=== PATIENT | male | born 1955 | race Caucasian/White ===

== ENCOUNTER 2019-12-09 08:54 | Day surgery (SDC) | payer BC, SELFPAY ==
[2019-12-02 15:12] VITALS: BMI 34.8
--- NOTE | 2019-12-07 09:10 | HO.ANESPROP2 ---
Documented by User: More La Nena 12/07/19 09:33 HPI - Anesthesia Eval Consult details Narrative: 64yo M for EGD and Colonoscopy FOR[facility]LY [facility] Past Medical History Medical History Arthritis Ascending aorta dilation Back pain Diarrhea GERD (gastroesophageal reflux disease) Gout Hiatal hernia History of esophageal varices History of Qcchb-Zgvjubujd-Zitow (WPW) syndrome HTN (hypertension) Surgical History Surgical History H/O cardiac radiofrequency ablation History of colonoscopy History of esophagogastroduodenoscopy (EGD) Social History Social History Smoking Status: Never smoker Second Hand Smoke Exposure: No Use of substances other than those prescribed or required for medical reasons: N Advance Directives: No Advance Directives Information Provided: No Recently lost weight without trying: Yes Narrative Narrative: Per [employer] supervisor, suscessful catheter ablation of accessory pathway and EKG no longer shows a pattern of WPW, no recurrent tachyarrhythmias. 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 Obs only. Meds Allergies Allergy/AdvReac Type Severity Reaction Status Date / Time lisinopril [LISINOPRIL] Allergy Unknown TONGUE Unverified 11/25/19 16:43 SWELLING, CONFUSION , swollen tounge and face confusion Environmental Allergy Unknown Uncoded 09/01/19 00:00 lisinopril Allergy Unknown Uncoded 10/22/19 00:00 Home Medications Medication Instructions Recorded Confirmed Type allopurinol 1 tab PO DAILY 12/07/19 12/07/19 History bisacodyl 4 tab PO NEEDED 12/07/19 12/07/19 History diclofenac sodium 1 tab PO BID 12/07/19 12/07/19 History dorzolamide-timolol 1 drp BID 12/07/19 12/07/19 History gabapentin 1 cap PO DAILY 12/07/19 12/07/19 History indomethacin 1 cap PO TID PRN 12/07/19 12/07/19 History latanoprost 1 drp OPHTHALMIC (EYE) BEDTIME 12/07/19 12/07/19 History metoprolol succinate 1 tab PO DAILY 12/07/19 12/07/19 History nifedipine 1 tab PO DAILY 12/07/19 12/07/19 History omeprazole 1 cap PO DAILY 12/07/19 12/07/19 History spironolactone 1 tab PO DAILY 12/07/19 12/07/19 History Exam Exam Date and Time: December 07, 2019 0910 Height,Weight and Vital Signs: Height 5 ft 8 in Weight 103.873 kg Pertinent Lab Results Pertinent Lab Results: Echo 05/2018=[id number]%, normal LV sys function. Asc aorta@4.4cm Assessment and Plan Assessment Anesthesia Assessment: Chart Reviewed (12/07/19 HT) Documented by User: Patience Lloyd 12/09/19 09:54 PMFSH Past Medical History Medical History Arthritis Ascending aorta dilation Back pain Diarrhea GERD (gastroesophageal reflux disease) Gout Hiatal hernia History of esophageal varices History of Qwsvt-Fjovizoqz-Hddyc (WPW) syndrome HTN (hypertension) Surgical History Surgical History H/O cardiac radiofrequency ablation History of colonoscopy History of esophagogastroduodenoscopy (EGD) Social History Social History Smoking Status: Never smoker Second Hand Smoke Exposure: No Use of substances other than those prescribed or required for medical reasons: N Advance Directives: No Advance Directives Information Provided: No Recently lost weight without trying: Yes Meds Allergies Allergy/AdvReac Type Severity Reaction Status Date / Time lisinopril [LISINOPRIL] Allergy Unknown TONGUE Unverified 11/25/19 16:43 SWELLING, CONFUSION , swollen tounge and face confusion Environmental Allergy Unknown Uncoded 09/01/19 00:00 lisinopril Allergy Unknown Uncoded 10/22/19 00:00 Home Medications Medication Instructions Recorded Confirmed Type allopurinol 1 tab PO DAILY 12/07/19 12/07/19 History bisacodyl 4 tab PO NEEDED 12/07/19 12/07/19 History diclofenac sodium 1 tab PO BID 12/07/19 12/07/19 History dorzolamide-timolol 1 drp BID 12/07/19 12/07/19 History gabapentin 1 cap PO DAILY 12/07/19 12/07/19 History indomethacin 1 cap PO TID PRN 12/07/19 12/07/19 History latanoprost 1 drp OPHTHALMIC (EYE) BEDTIME 12/07/19 12/07/19 History metoprolol succinate 1 tab PO DAILY 12/07/19 12/07/19 History nifedipine 1 tab PO DAILY 12/07/19 12/07/19 History omeprazole 1 cap PO DAILY 12/07/19 12/07/19 History spironolactone 1 tab PO DAILY 12/07/19 12/07/19 History Exam Airway Mallampati Class: IV TM Dist: >3cm Neck ROM: Full Denture: Upper Loose/Missing/Broken Teeth: Yes (9,10 missing) Heart: RRR Lungs: CTA BL Assessment and Plan Final Anesthetic Review Final Preanesthetic Review: No Changes in Pt Med Stat, Meds & Allergies Reviewed, Consent Obtained/Reviewed and Med/Surg/Anes Hx Reviewed Patient Risk: Intermediate Procedure Risk: Intermediate Assessment/Block/Sedation in SS: Assess/Block/Sedation-SS Anesthetic Plan Anesthetic Plan: MAC: Disposition: Standard PACU
[2019-12-09 10:16] VITALS: BP 157/97; PULSE 82; RESP 18; TEMP 36.3; O2SAT 96
[2019-12-09] MEDS: Lactated Ringers 1,000 ML 100 ML IVCONT (10:24)
--- NOTE | 2019-12-09 11:03 | MHC.SHP ---
Surgical H&P Section B Chief Complaint: DIARRHEA,OTHER DIGESTIVE DISEASES Details of Present Illness: diarrhea for many years, hx of varices Relevant Family History (Specify if Yes): No Relevant Social History: None Present Medications: see Short Stay Collaborative assessment Medical History: Significant History (HTN, hiatal hernia, obesity, WPW) History of Previous Operations: Relevant previous surgery/procedure and date(s) (EGD, heart ablation) Allergies: Allergies Allergy/AdvReac Type Severity Reaction Status Date / Time lisinopril [LISINOPRIL] Allergy Unknown TONGUE Unverified 11/25/19 16:43 SWELLING, CONFUSION , swollen tounge and face confusion Environmental Allergy Unknown Uncoded 09/01/19 00:00 lisinopril Allergy Unknown Uncoded 10/22/19 00:00 Review of Systems Review of Systems Comment: negative except as mentioned in HP Exam Surgical H&P Exam: Normal: HEENT, Normal: Heart, Normal: Lungs, Normal: Extremities, Normal: Abdomen, Normal: Skin and Normal: Neurological Plan Diagnosis/Plan: Unchanged Patient has been examined and remains a candidate for the planned procedure
--- NOTE | 2019-12-09 11:52 | PC.NURSE ---
CONTACT PRECAUTIONS INITIATED PER POTENTIAL C DIFFICILE INFECTION. MAYA
--- NOTE | 2019-12-09 11:54 | PM.OP ---
Brief Operative Note Date of procedure: 12/09/19 Pre-op diagnosis: diarrhea Post-op diagnosis: same Procedure: Date of procedure: 12/09/19 Operative Information Procedure Description: EGD, Colonoscopy FLEXIBLE TRANSORAL UPPER GASTROINTESTINAL ENDOSCOPY AND COLONOSCOPY PROCEDURE NOTE UPPER ENDOSCOPY Consent: Indications for the procedure and potential complications of bleeding, perforation, reaction to medications and missed diagnosis were discussed with the patient and informed consent was obtained. Instrument: Olympus GIF H 190 J mid size upper endoscope Monitoring: Vital signs and clinical assessment, continuous EKG monitoring, Pulse oximetry, Carbon Dioxide monitoring and blood pressure monitoring were done throughout the procedure. Procedure: The patient was placed in the left lateral decubitis position and pre-procedure medications were administered and a bite block was placed. The endoscope was inserted into the mouth and advanced under direct vision to the third part of duodenum. A careful inspection was made as the upper endoscope was withdrawn including a retroflexed examination of the proximal stomach; Findings and interventions are described below. Findings: Larynx:normal Esophagus: GE junction at 42 cm, diaphragm hiatus at 44 cm consistent with 2 cm sliding hiatal hernia. There appeared to be salmon pink tissue consistent with Barretts esophagus, C1M2 by [place] criteria. Bx taken. Scarring noted prob from prior esophageal banding but no varices seen. Stomach: Patchy gastric erythema. Biopsies were obtained. Grade 2 flap valve on retroflexed examination of the cardia. Duodenum: Normal bulb and descending duodenum, bx taken Intervention: Biopsies as noted above COLONOSCOPY Instrument: Olympus variable stiffness pediatric scope 190L Colonoscopy Monitoring: Vital signs and clinical assessment, continuous EKG monitoring, Pulse oximetry, Carbon Dioxide monitoring and blood pressure monitoring were done throughout the procedure. Colon withdrawal time was 17 minutes. Procedure: The patient was placed in the left lateral decubitis position and pre-procedure medications were administered. After a digital rectal examination of the ano-rectum, the video colonoscope was inserted into the rectum and advanced through the colon to the cecum/TI. The colonoscope was slowly withdrawn in a retrograde panoramic fashion and the colon mucosa was carefully examined including a retroflexed view of the rectum. Findings and interventions are described below. Procedure Difficulty: Findings: Terminal Ileum-normal, bx taken Cecum:normal Ascending Colon: x 2 sessile polyps noted, one flat polyp 7-8 mm removed w/ biopsy forceps and another sessile polyp 10 mm removed with cold snare. Transverse Colon -normal Descending Colon:normal Sigmoid Colon: normal, few small diverticula seen Rectum: Retroflexion with small internal hemorrhoids, grade I Anorectum - normal Random colon bx taken Colon preparation: [place] Bowel Preparation Scale Right colon; 2 Transverse colon: 3 Left colon; 2 (0 = Unprepared colon segment with mucosa not seen due to solid stool that cannot be cleared. 1 = Portion of mucosa of the colon segment seen, but other areas of the colon segment not well seen due to staining, residual stool and/or opaque liquid. 2 = Minor amount of residual staining, small fragments of stool and/or opaque liquid, but mucosa of colon segment seen well. 3 = Entire mucosa of colon segment seen well with no residual staining, small fragments of stool or opaque liquid) Impression and Post Procedure Diagnosis: Endoscopy Findings: gastritis hiatal hernia barretts esophagus Colonoscopy Findings: polyps diverticulosis internal hemorrhoids Plan: Await Pathology results Repeat Colonoscopy in 3-5 years pending path or earlier if clincially indicated Repeat EGD pending path prob 1 year if barretts confirmed High fiber diet leaflet avoid straining at stool, epsom salts and sitz bath, anusol supps or cream if bx neg then pursue further w/u of diarrhea Above findings were reviewed with the patient and relevant handouts were provided if indicated. Anesthesia: MAC Surgeon: Jeannette Fuentes Condition: stable Disposition: PACU
[2019-12-09 12:00] VITALS: BP 129/81; PULSE 74; RESP 16; TEMP 36.8; O2SAT 92
[2019-12-09 12:15] VITALS: BP 132/76; PULSE 67; RESP 18; O2SAT 94
[2019-12-09 12:30] VITALS: BP 148/80; PULSE 63; RESP 20; TEMP 36.8; O2SAT 94
[2019-12-09 13:06] LABS: CDIFF Ag Negative (Negative); CDIFF Internal ctrl Dots and bkg OK (V); CDiff Toxin Negative (Negative)
--- NOTE | 2019-12-09 13:11 | HO.POSTANES ---
Post Anesthesia Evaluation Post Anesthesia Evaluation Vital Signs: Vital Signs Temp Pulse Resp BP Pulse Ox 12/09/19 12:30 98.2 F 63 20 148/80 H 94 12/09/19 12:15 67 18 132/76 94 12/09/19 12:00 98.2 F 74 16 129/81 92 12/09/19 10:16 97.4 F 82 18 157/97 H 96 Anesthesia: Monitored Mental Status: Awake Pain Control: Satisfactory Nausea/Vomiting: None Hydration: Adequate Anesthesia-Related Issues: No Anes. Related Issues
== END 2019-12-09 13:20 ==
LOC: HO.SSS 08:55
PROVIDERS: PCP Internal Medicine; Visit Provider Internal Medicine Gastroenterology
PROC: (CPT 45385; principal; 2019-12-09 10:00)
DX: R19.7 Diarrhea, unspecified (principal); K57.30 Diverticulosis of large intestine without perforation or abscess without bleeding; K64.0 First degree hemorrhoids; K63.5 Polyp of colon; K29.80 Duodenitis without bleeding; K22.70 Barrett's esophagus without dysplasia; K29.50 Unspecified chronic gastritis without bleeding; D12.2 Benign neoplasm of ascending colon; Z87.19 Personal history of other diseases of the digestive system; K21.9 Gastro-esophageal reflux disease without esophagitis; I45.6 Pre-excitation syndrome; K44.9 Diaphragmatic hernia without obstruction or gangrene; I10 Essential (primary) hypertension; Z88.0 Allergy status to penicillin; M10.9 Gout, unspecified; Z79.899 Other long term (current) drug therapy
CPT/HCPCS: 45385; 45380; 43239; 36415; 87324; 87449; 88305; 88342

== ENCOUNTER 2019-12-23 10:55 | Outpatient (RCR) | payer BC, SELFPAY ==
--- NOTE | 2019-12-23 14:06 | MHC.PT.DC ---
[facility] [place] Office [place] Office [place] [facility] [address] Beatriz Peterson [address] [phone] F: [phone] F: [phone] F: [phone] F: [phone] Physical Therapy Discharge Report Diagnosis: primary OA of R knee and trochanteric bursitis R hip Date of Surgery: NA Date of Evaluation: 08/30/19 Date of Discharge: 12/23/19 Treatments to Date: 14 Cancellations to Date: 0 No Shows to Date: 0 Discharge Status: Achieved Goals Improved Function Independent with HEP Discharge Summary: Patient returns reporting in general feeling better. He has enjoyed his time in therapy and has a good HEP to continue on his own at home in the mean time while he waits to have his TKR. He demos good ROM and strength and does not complain of any pain with ther-ex at the last tx session. He is I and ready for DC at this time Electronically signed by: Daphne Schaeffer Please sign and return to therapist. Thank you for your referral.
== END 2019-12-23 14:17 | disposition home or self-care (01) ==
LOC: HO.PTCHIC 10:55
PROVIDERS: PCP Internal Medicine; Visit Provider Orthopaedic Surgery
DX: M70.61 Trochanteric bursitis, right hip (principal); M17.11 Unilateral primary osteoarthritis, right knee
CPT/HCPCS: 97110

== ENCOUNTER 2020-02-25 10:59 | Outpatient (REF) | payer BC, SELFPAY ==
--- NOTE | 2020-02-25 11:04 | XR_ITS ---
EXAMINATION: XR SHOULDER, RIGHT CLINICAL INFORMATION: Injury or shoulder proper. COMPARISON: None TECHNIQUE: AP external rotation, Grashey, scapular Y, and axillary views of the right shoulder. FINDINGS: There is a nondisplaced inferior scapular fracture. The glenohumeral joint space is intact. There is mild loss of AC joint with inferior periarticular spurring. The soft tissues are normal. XR/XR shoulder RT min 2V IMPRESSION: Nondisplaced fracture inferior scapula. Mild degenerative changes right AC joint.
[2020-02-25 14:05] LABS: MANUAL DIFF FLAG NO
[2020-02-25 14:07] LABS: Basophils Percent Auto 0.7 % (0-2); Eosinophils Absolute Auto 0.3 X10*3/uL (0.0-0.4); Eosinophils Percent Auto 4.7 % (0-4); Hematocrit 38.6 % (42-52); Hemoglobin 13.4 g/dl (14.0-18.0); Imm Gran Abs Auto 0.02 X10*3/uL (0.00-0.03); Imm Gran Pct Auto 0.3 % (0.0-0.4); Lymphocytes Absolute Auto 1.7 X10*3/uL (1.2-4.9); Lymphocytes Percent Auto 27.8 % (20-40); Mean Corpuscular HGB Conc 34.7 g/dl (31.0-36.0); Mean Corpuscular Hemoglobin 30.9 pg (27.0-33.0); Mean Corpuscular Volume 88.9 fL (80-98); Mean Platelet Volume 10.9 fL (9.4-12.4); Monocytes Absolute Auto 0.5 X10*3/uL (0.1-1.2); Monocytes Percent Auto 8.8 % (2-11); Neutrophils Absolute Auto 3.5 X10*3/uL (2.0-8.3); Neutrophils Percent Auto 57.7 % (45-73); Platelet Count 216 X10*3/uL (160-400); Red Blood Count 4.34 X10*6/uL (4.60-5.80); Red Cell Distribution Width 12.8 % (11.0-16.0); White Blood Count 6.1 X10*3/uL (4.8-10.8)
[2020-02-25 14:33] LABS: Anion Gap 12 (12-20); Blood Urea Nitrogen 24 mg/dL (9-16); Calcium 9.9 mg/dL (8.4-10.2); Carbon Dioxide 26 mmol/L (22-29); Chloride 107 mmol/L (96-108); Estimated Glomerular Filt Rate > 60; Glucose Random 116 mg/dL (60-115); Potassium 4.3 mmol/l (3.3-5.1); Sodium 141 mmol/L (135-145)
== END 2020-02-25 11:00 | disposition home or self-care (01) ==
LOC: HO.HMGCLDS 10:59
PROVIDERS: PCP Internal Medicine; Visit Provider Internal Medicine
DX: S49.90XA Unspecified injury of shoulder and upper arm, unspecified arm, initial encounter (principal)
CPT/HCPCS: 36415; 73030; 80048; 85025

== ENCOUNTER 2020-04-21 17:34 | Outpatient (REF) | payer BC, SELFPAY ==
[2020-04-22 11:40] LABS: CDIFF Ag Positive (Negative); CDIFF Internal ctrl Dots and bkg OK (V); CDiff Toxin Negative (Negative)
[2020-04-22 14:14] LABS: CDiff Gene PCR POSITIVE (Negative)
== END 2020-04-21 17:35 | disposition home or self-care (01) ==
LOC: HO.LNP 17:34
PROVIDERS: Visit Provider Internal Medicine Gastroenterology
DX: K52.9 Noninfective gastroenteritis and colitis, unspecified (principal)
CPT/HCPCS: 87324; 87449; 87493

== ENCOUNTER 2020-04-30 12:35 | Inpatient (IN) | payer BC, SELFPAY ==
--- NOTE | ~2020-04-30 | XR_ITS ---
EXAMINATION: XR CHEST CLINICAL INFORMATION: Shortness of breath COMPARISON: None TECHNIQUE: Frontal view of the chest was obtained. FINDINGS: The cardiac silhouette is upper normal in size. The thoracic aorta may be tortuous. Hilar and mediastinal contours are otherwise unremarkable. The lungs are clear. There is no pleural effusion or pneumothorax. Bony structures are unremarkable. XR/XR chest 1V IMPRESSION: No evidence for acute disease in the chest.
--- NOTE | ~2020-04-30 | CT_ITS ---
EXAMINATION: CT ANGIOGRAM OF THE CHEST WITH AND WITHOUT CONTRAST (CT PULMONARY ANGIOGRAM FOR PE) CLINICAL INFORMATION: Reason for Exam Hypoxia. Elevated D-dimer COMPARISON: Chest radiograph earlier today TECHNIQUE: Prior to contrast administration, noncontrast localization images were obtained. Subsequently, multidetector volumetric imaging was performed from the thoracic inlet to below the diaphragms following the administration of 71 mL Omnipaque 350 intravenous contrast. No contrast reaction reported Sagittal, coronal, and MIP oblique sagittal reformatted images were obtained on the CT workstation, uploaded to PACS, and reviewed. This CT examination was performed using dose optimization techniques as appropriate, variously including the following: *Automated exposure control *Adjustment of mA and/or kV according to patient size (this includes techniques or standardized protocols for targeted exams where dose is matched to indication/reason for exam; i.e. extremities or head) *Use of iterative reconstruction technique Total exam dose-length product 486 mGy-cm FINDINGS: QUALITY OF STUDY/CONTRAST BOLUS: Satisfactory. PULMONARY ARTERIES: No central or segmental pulmonary emboli. THORACIC AORTA: No aneurysm or dissection. LUNG: No focal consolidation, nodules or masses. Bibasilar atelectasis is present. PLEURA: No pleural effusion or pneumothorax. MEDIASTINUM: There is mild cardiomegaly with no evidence of CHF. No pericardial effusion. No hilar or mediastinal lymphadenopathy. Coronary artery calcifications are present. No evidence of septal bowing or right heart strain. CHEST WALL/AXILLA: No axillary or internal mammary lymphadenopathy. OSSEOUS STRUCTURES: No acute or suspicious osseous abnormality. There is some mild wedging of midthoracic vertebral bodies with mild kyphosis. UPPER ABDOMEN: Small hiatal hernia is present. No reflux of contrast into the hepatic veins to suggest elevated right heart pressures. CT/CT angio chest PE protocol IMPRESSION: No evidence of pulmonary emboli. VTE: negative
[2020-04-30 12:42] VITALS: BP 151/79; PULSE 73; RESP 20; TEMP 36.6; O2SAT 90; BMI 35.7
--- NOTE | 2020-04-30 13:13 | ECG_ITS ---
Test Reason : sob Blood Pressure : / mmHG Vent. Rate : 066 BPM Atrial Rate : 066 BPM P-R Int : 174 ms QRS Dur : 092 ms QT Int : 420 ms P-R-T Axes : 011 -42 -11 degrees QTc Int : 440 ms Normal sinus rhythm Left axis deviation Abnormal ECG When compared to the previous EKG of No significant changes seen Referred By: Haylee Moreno Electronically Signed By:REYES NAVARRO MD
--- NOTE | 2020-04-30 13:20 | ED.SOB ---
HPI - SOB/Dyspnea General Chief Complaint: Dyspnea Stated Complaint: SOB Time Seen by Provider: 04/30/20 13:00 Source: patient Mode of arrival: ambulatory History of Present Illness HPI Narrative: 64-year-old male with a past medical history of arthritis, ascending aorta dilation, GERD, gout, hiatal hernia, esophageal varices, WPW, HTN, recently diagnosed with C diff currently on outpatient therapy, complaining of worsening SOB, orthopnea, and dyspnea on exertion x2 weeks. Also reports dry cough. Admits recently tested negative for COVID-19 on checks SpO2 at work daily normally greater than 95% on RA, noted to be 86%. Also reports LE edema, and continued diarrhea. Denies fever, chills, chest pain, nausea/vomiting, recent travel, history of blood clots, exposure to COVID-19 Related Data Home Medications Medication Instructions Recorded Confirmed bisacodyl 4 tab PO NEEDED 12/07/19 02/22/20 diclofenac sodium 1 tab PO BID 12/07/19 02/22/20 dorzolamide-timolol 1 drp BID 12/07/19 04/30/20 latanoprost 1 drp OPHTHALMIC (EYE) BEDTIME 12/07/19 04/30/20 metronidazole 1 tab PO TID 04/30/20 04/30/20 Previous Rx's Medication Instructions Recorded pantoprazole 40 mg tablet,delayed 40 mg PO DAILY 30 Days #30 tab 12/14/19 release spironolactone 25 mg tablet 25 mg PO DAILY #90 tab 02/08/20 allopurinol 300 mg tablet 300 mg PO DAILY #90 tab 02/10/20 nifedipine 90 mg tablet,extended 90 mg PO DAILY 30 Days #30 tab 02/10/20 release 24 hr gabapentin 300 mg capsule 300 mg PO DAILY 90 Days #90 cap 02/29/20 indomethacin 50 mg capsule 50 mg PO TID PRN 30 Days #90 cap 03/19/20 metoprolol succinate 200 mg 200 mg PO DAILY #90 tab 04/21/20 tablet,extended release 24 hr Allergies Allergy/AdvReac Type Severity Reaction Status Date / Time lisinopril [LISINOPRIL] Allergy Unknown TONGUE Verified 02/18/20 15:39 SWELLING, CONFUSION , swollen tounge and face confusion Environmental Allergy Unknown unknown Uncoded 02/18/20 15:39 lisinopril Allergy Unknown Unknown Uncoded 02/18/20 15:39 Review of Systems Review of Systems: Constitutional: No Weight loss, No Fever, No Chills Cardiovascular: No Chest Pain, + SOB, + Dyspnea on Exertion, + Orthopnea, + Edema, No Palpitations Respiratory: + Cough, No Sputum, No Wheezing, N+Dyspnea Gastrointestinal: No Nausea, No Vomiting, + Diarrhea, No Constipation, No Abdominal pain, No Hematochezia, No Melena Genitourinary:No Dysuria, No Urinary Frequency, No Hematuria Musculoskeletal: No joint pain, No Myalgias, No Joint Swelling Skin: No Skin Lesions, No rash Yes all other systems are reviewed and are negative PMFSH Past Medical History Attestation statement: The following information was validated with the patient. Medical History Arthritis Ascending aorta dilation Back pain Chronic diarrhea Diarrhea GERD (gastroesophageal reflux disease) Gout Hiatal hernia History of alcoholism History of esophageal varices History of Ypouq-Nebousscc-Qcfxm (WPW) syndrome HTN (hypertension) Idiopathic peripheral neuropathy Lumbar spondylosis Morbid obesity Pre-diabetes Shoulder injury Surgical History H/O cardiac radiofrequency ablation History of colonoscopy History of esophagogastroduodenoscopy (EGD) Social History Social History Alcohol intake: former Smoking Status: Never smoker Second Hand Smoke Exposure: No Use of substances other than those prescribed or required for medical reasons: No Advance Directives: No Advance Directives Information Provided: Yes Physical Exam Vital Signs: Vital Signs: Last Vital Signs Temp 97.8 F 04/30/20 14:46 Pulse 71 04/30/20 16:09 Resp 18 04/30/20 16:09 BP 135/75 04/30/20 16:09 Pulse Ox 94 04/30/20 17:10 Body Mass Index 35.7 Const: General: cooperative, healthy appearing and comfortable Orientation/consciousness: patient oriented x3 Limitations: no limitations HENMT: Head: Yes normal to inspection Ears: hearing grossly normal bilaterally General nose exam: Normal external nose present Face and sinus: Yes normal facial exam Eyes: General: appearance normal, both eyes and all related structures EOM: EOMs intact bilaterally Neck: Neck: Yes normal visual inspection and Yes no lymphadenopathy Resp: Other: Coarse lung sounds throughout. Good air movement Effort & Inspection: normal respiratory effort Cardio: Rate: regular rate Heart sounds: S1 normal heart sound present and S2 normal heart sound present GI: Inspection: Yes normal to inspection Palpation (GI): Soft to palpation, nontender, no guarding and not rigid Skin: Rashes: no rashes Wounds: no wounds Neuro: General: patient oriented x3, tone normal and moves all extremities Gait exam (Neuro): Normal gait present Extrem: Other: +1 bilateral pitting edema General: Yes normal to inspection Course Course Course Narrative: -D-dimer slightly elevated at 233, initial troponin 5.4 > will obtain 3 hour repeat XR chest 1V IMPRESSION: No evidence for acute disease in the chest -1510--COVID-19/influenza/RSV negative >> will obtain CTA to rule out PE CT angio chest PE protocol IMPRESSION: No evidence of pulmonary emboli. VTE: negative -repeat troponin equivocal. ABG WNL >> plan to admit for further management MDM - SOB/Dyspnea MDM Narrative Medical decision making narrative: 64-year-old male with a past medical history of arthritis, ascending aorta dilation, GERD, gout, hiatal hernia, esophageal varices, WPW, HTN, recently diagnosed with C diff currently on outpatient therapy, complaining of worsening SOB, orthopnea, and dyspnea on exertion x2 weeks. On exam standing 89-90% on RA, coarse lung sounds throughout, in no respiratory distress, bilateral edema. Concern for COVID-19/viral syndrome vs CHF. Lower concern for pneumonia/bacterial infection or severe sepsis. Lower concern for PE but on differential Plan: EKG, labs, CXR, COVID-19 testing, albuterol, Decadron, anticipated admission Medical Records Attestation: I reviewed the patient's medical records. Lab Data Attestation: I reviewed the patient's lab results. Result diagrams: 04/30/20 13:39 04/30/20 13:39 Labs: Lab Results 04/30/20 04/30/20 04/30/20 Range/Units 13:39 13:39 13:39 WBC 7.9 (4.8-10.8) X10*3/uL RBC 4.77 (4.60-5.80) X10*6/uL Hgb 14.7 (14.0-18.0) g/dl Hct 42.5 (42-52) % MCV 89.1 (80-98) fL MCH 30.8 (27.0-33.0) pg MCHC 34.6 (31.0-36.0) g/dl RDW 13.1 (11.0-16.0) % Plt Count 249 (160-400) X10*3/uL MPV 11.1 (9.4-12.4) fL Immature Gran % (Auto) 0.1 (0.0-0.4) % Neut % (Auto) 54.0 (45-73) % Lymph % (Auto) 21.9 (20-40) % Esmeralda % (Auto) 9.0 (2-11) % Eos % (Auto) 14.1 H (0-4) % Baso % (Auto) 0.9 (0-2) % Lymph # (Auto) 1.7 (1.2-4.9) X10*3/uL Esmeralda # (Auto) 0.7 (0.1-1.2) X10*3/uL Eos # (Auto) 1.1 H (0.0-0.4) X10*3/uL Baso # (Auto) 0.1 (0.0-0.2) X10*3/uL Abs Immat Gran (auto) 0.01 (0.00-0.03) X10*3/uL Absolute Neuts (auto) 4.2 (2.0-8.3) X10*3/uL Absolute Nucleated RBC 0.000 (0.0-0.012) X10*3/uL Nucleated RBC % (auto) 0.0 (0.0-0.2) /100WBC PT 13.3 H (10.8-13.0) SEC INR 1.1 (0.9-1.1) APTT 35.3 (24.1-38.0) SEC D-Dimer 233 NG/ML ABG pH (7.35-7.45) ABG pCO2 (32-45) mmHg ABG pO2 (83-108) mmHg ABG HCO3 (22-26) mmol/L ABG O2 Saturation % ABG Base Excess Oxygen Given Sodium 141 (135-145) mmol/L Potassium 4.1 (3.3-5.1) mmol/L Chloride 105 (96-108) mmol/L Carbon Dioxide 27 (22-29) mmol/L Anion Gap 13 (12-20) BUN 20 H (9-16) mg/dL Creatinine 0.91 (0.5-1.4) mg/dL Estim Creat Clear Calc 100.1 Estimated GFR > 60 Random Glucose 103 (60-115) mg/dL Lactic Acid (0.5-2.0) mmol/L Calcium 9.8 (8.4-10.2) mg/dL Magnesium 1.8 (1.6-2.6) mg/dL Ferritin (20-250) ng/mL Total Bilirubin 1.0 (0.0-1.0) mg/dL Direct Bilirubin 0.4 (0.0-0.5) mg/dL AST 33 (5-37) U/L ALT 52 H (0-40) U/L Alkaline Phosphatase 80 (39-117) U/L Lactate Dehydrogenase 242 (118-273) U/L Troponin I High Sens (<3.5-35.0) ng/L C-Reactive Protein (< or = 0.50) mg/dL B-Natriuretic Peptide (<100) pg/mL Total Protein 6.9 (6.5-8.0) g/dL Albumin 4.4 (3.5-5.0) g/dL Procalcitonin ng/mL Urine Color Urine Appearance Urine pH (5.0-8.0) Ur Specific [place] (1.005-1.025) Urine Protein (NEG-TRACE) MG/DL Urine Glucose (UA) (NEG) MG/DL Urine Ketones (NEG) MG/DL Urine Blood (NEG) Urine Nitrite (NEG) Ur Leukocyte Esterase (NEG) Coronavirus (PCR) (Negative) Influenza Type A (PCR) (Negative) Influenza Type B (PCR) (Negative) RSV RNA Qual (PCR) (Negative) 04/30/20 04/30/20 04/30/20 Range/Units 13:39 13:39 13:39 WBC (4.8-10.8) X10*3/uL RBC (4.60-5.80) X10*6/uL Hgb (14.0-18.0) g/dl Hct (42-52) % MCV (80-98) fL MCH (27.0-33.0) pg MCHC (31.0-36.0) g/dl RDW (11.0-16.0) % Plt Count (160-400) X10*3/uL MPV (9.4-12.4) fL Immature Gran % (Auto) (0.0-0.4) % Neut % (Auto) (45-73) % Lymph % (Auto) (20-40) % Esmeralda % (Auto) (2-11) % Eos % (Auto) (0-4) % Baso % (Auto) (0-2) % Lymph # (Auto) (1.2-4.9) X10*3/uL Esmer[place]da # (Auto) (0.1-1.2) X10*3/uL Eos # (Auto) (0.0-0.4) X10*3/uL Baso # (Auto) (0.0-0.2) X10*3/uL Abs Immat Gran (auto) (0.00-0.03) X10*3/uL Absolute Neuts (auto) (2.0-8.3) X10*3/uL Absolute Nucleated RBC (0.0-0.012) X10*3/uL Nucleated RBC % (auto) (0.0-0.2) /100WBC PT (10.8-13.0) SEC INR (0.9-1.1) APTT (24.1-38.0) SEC D-Dimer NG/ML ABG pH (7.35-7.45) ABG pCO2 (32-45) mmHg ABG pO2 (83-108) mmHg ABG HCO3 (22-26) mmol/L ABG O2 Saturation % ABG Base Excess Oxygen Given Sodium (135-145) mmol/L Potassium (3.3-5.1) mmol/L Chloride (96-108) mmol/L Carbon Dioxide (22-29) mmol/L Anion Gap (12-20) BUN (9-16) mg/dL Creatinine (0.5-1.4) mg/dL Estim Creat Clear Calc Estimated GFR Random Glucose (60-115) mg/dL Lactic Acid 0.9 (0.5-2.0) mmol/L Calcium (8.4-10.2) mg/dL Magnesium (1.6-2.6) mg/dL Ferritin 167 (20-250) ng/mL Total Bilirubin (0.0-1.0) mg/dL Direct Bilirubin (0.0-0.5) mg/dL AST (5-37) U/L ALT (0-40) U/L Alkaline Phosphatase (39-117) U/L Lactate Dehydrogenase (118-273) U/L Troponin I High Sens 5.4 (<3.5-35.0) ng/L C-Reactive Protein 0.27 (< or = 0.50) mg/dL B-Natriuretic Peptide < 10 (<100) pg/mL Total Protein (6.5-8.0) g/dL Albumin (3.5-5.0) g/dL Procalcitonin ng/mL Urine Color Urine Appearance Urine pH (5.0-8.0) Ur Specific [place] (1.005-1.025) Urine Protein (NEG-TRACE) MG/DL Urine Glucose (UA) (NEG) MG/DL Urine Ketones (NEG) MG/DL Urine Blood (NEG) Urine Nitrite (NEG) Ur Leukocyte Esterase (NEG) Coronavirus (PCR) (Negative) Influenza Type A (PCR) (Negative) Influenza Type B (PCR) (Negative) RSV RNA Qual (PCR) (Negative) 04/30/20 04/30/20 04/30/20 Range/Units 13:39 13:39 16:18 WBC (4.8-10.8) X10*3/uL RBC (4.60-5.80) X10*6/uL Hgb (14.0-18.0) g/dl Hct (42-52) % MCV (80-98) fL MCH (27.0-33.0) pg MCHC (31.0-36.0) g/dl RDW (11.0-16.0) % Plt Count (160-400) X10*3/uL MPV (9.4-12.4) fL Immature Gran % (Auto) (0.0-0.4) % Neut % (Auto) (45-73) % Lymph % (Auto) (20-40) % Esmer[place]da % (Auto) (2-11) % Eos % (Auto) (0-4) % Baso % (Auto) (0-2) % Lymph # (Auto) (1.2-4.9) X10*3/uL [place]mer[place]da # (Auto) (0.1-1.2) X10*3/uL Eos # (Auto) (0.0-0.4) X10*3/uL Baso # (Auto) (0.0-0.2) X10*3/uL Abs Immat Gran (auto) (0.00-0.03) X10*3/uL Absolute Neuts (auto) (2.0-8.3) X10*3/uL Absolute Nucleated RBC (0.0-0.012) X10*3/uL Nucleated RBC % (auto) (0.0-0.2) /100WBC PT (10.8-13.0) SEC INR (0.9-1.1) APTT (24.1-38.0) SEC D-Dimer NG/ML ABG pH (7.35-7.45) ABG pCO2 (32-45) mmHg ABG pO2 (83-108) mmHg ABG HCO3 (22-26) mmol/L ABG O2 Saturation % ABG Base Excess Oxygen Given Sodium (135-145) mmol/L Potassium (3.3-5.1) mmol/L Chloride (96-108) mmol/L Carbon Dioxide (22-29) mmol/L Anion Gap (12-20) BUN (9-16) mg/dL Creatinine (0.5-1.4) mg/dL Estim Creat Clear Calc Estimated GFR Random Glucose (60-115) mg/dL Lactic Acid (0.5-2.0) mmol/L Calcium (8.4-10.2) mg/dL Magnesium (1.6-2.6) mg/dL Ferritin (20-250) ng/mL Total Bilirubin (0.0-1.0) mg/dL Direct Bilirubin (0.0-0.5) mg/dL AST (5-37) U/L ALT (0-40) U/L Alkaline Phosphatase (39-117) U/L Lactate Dehydrogenase (118-273) U/L Troponin I High Sens 4.9 (<3.5-35.0) ng/L C-Reactive Protein (< or = 0.50) mg/dL B-Natriuretic Peptide (<100) pg/mL Total Protein (6.5-8.0) g/dL Albumin (3.5-5.0) g/dL Procalcitonin 0.03 ng/mL Urine Color Urine Appearance Urine pH (5.0-8.0) Ur Specific [place] (1.005-1.025) Urine Protein (NEG-TRACE) MG/DL Urine Glucose (UA) (NEG) MG/DL Urine Ketones (NEG) MG/DL Urine Blood (NEG) Urine Nitrite (NEG) Ur Leukocyte Esterase (NEG) Coronavirus (PCR) NEGATIVE (Negative) Influenza Type A (PCR) NEGATIVE (Negative) Influenza Type B (PCR) NEGATIVE (Negative) RSV RNA Qual (PCR) NEGATIVE (Negative) 04/30/20 04/30/20 Range/Units 16:26 16:43 WBC (4.8-10.8) X10*3/uL RBC (4.60-5.80) X10*6/uL Hgb (14.0-18.0) g/dl Hct (42-52) % MCV (80-98) fL MCH (27.0-33.0) pg MCHC (31.0-36.0) g/dl RDW (11.0-16.0) % Plt Count (160-400) X10*3/uL MPV (9.4-12.4) fL Immature Gran % (Auto) (0.0-0.4) % Neut % (Auto) (45-73) % Lymph % (Auto) (20-40) % [place]mer[place]da % (Auto) (2-11) % Eos % (Auto) (0-4) % Baso % (Auto) (0-2) % Lymph # (Auto) (1.2-4.9) X10*3/uL [place]mer[place]da # (Auto) (0.1-1.2) X10*3/uL Eos # (Auto) (0.0-0.4) X10*3/uL Baso # (Auto) (0.0-0.2) X10*3/uL Abs Immat Gran (auto) (0.00-0.03) X10*3/uL Absolute Neuts (auto) (2.0-8.3) X10*3/uL Absolute Nucleated RBC (0.0-0.012) X10*3/uL Nucleated RBC % (auto) (0.0-0.2) /100WBC PT (10.8-13.0) SEC INR (0.9-1.1) APTT (24.1-38.0) SEC D-Dimer NG/ML ABG pH 7.38 (7.35-7.45) ABG pCO2 27 L (32-45) mmHg ABG pO2 53 L (83-108) mmHg ABG HCO3 16 L (22-26) mmol/L ABG O2 Saturation 89.0 % ABG Base Excess -7.0 Oxygen Given 2 L Sodium (135-145) mmol/L Potassium (3.3-5.1) mmol/L Chloride (96-108) mmol/L Carbon Dioxide (22-29) mmol/L Anion Gap (12-20) BUN (9-16) mg/dL Creatinine (0.5-1.4) mg/dL Estim Creat Clear Calc Estimated GFR Random Glucose (60-115) mg/dL Lactic Acid (0.5-2.0) mmol/L Calcium (8.4-10.2) mg/dL Magnesium (1.6-2.6) mg/dL Ferritin (20-250) ng/mL Total Bilirubin (0.0-1.0) mg/dL Direct Bilirubin (0.0-0.5) mg/dL AST (5-37) U/L ALT (0-40) U/L Alkaline Phosphatase (39-117) U/L Lactate Dehydrogenase (118-273) U/L Troponin I High Sens (<3.5-35.0) ng/L C-Reactive Protein (< or = 0.50) mg/dL B-Natriuretic Peptide (<100) pg/mL Total Protein (6.5-8.0) g/dL Albumin (3.5-5.0) g/dL Procalcitonin ng/mL Urine Color YELLOW Urine Appearance CLEAR Urine pH 5.0 (5.0-8.0) Ur Specific [place] 1.010 (1.005-1.025) Urine Protein NEG (NEG-TRACE) MG/DL Urine Glucose (UA) NEG (NEG) MG/DL Urine Ketones NEG (NEG) MG/DL Urine Blood NEG (NEG) Urine Nitrite NEG (NEG) Ur Leukocyte Esterase NEG (NEG) Coronavirus (PCR) (Negative) Influenza Type A (PCR) (Negative) Influenza Type B (PCR) (Negative) RSV RNA Qual (PCR) (Negative) ECG Data Attestation: I personally reviewed and interpreted this ECG as follows: ECG interpretation date: 04/30/20 ECG interpretation time: 14:27 Interpretation: EKG normal sinus rhythm. Rate of 66. QTC 440. No STEMI. Discharge Plan Discharge Clinical Impression: Dyspnea, Hypoxia Patient Disposition: Admitted As Inpatient Prescriptions: No Action spironolactone 25 mg tablet 25 mg PO DAILY Qty: 90 RF: 0 allopurinol 300 mg tablet 300 mg PO DAILY Qty: 90 RF: 1 nifedipine 90 mg tablet extended release 24hr 90 mg PO DAILY 30 Days Qty: 30 RF: 3 gabapentin 300 mg capsule 300 mg PO DAILY 90 Days Qty: 90 RF: 0 indomethacin 50 mg capsule 50 mg PO TID PRN (Reason: pain) 30 Days Qty: 90 RF: 1 metoprolol succinate 200 mg tablet extended release 24 hr 200 mg PO DAILY Qty: 90 RF: 1 metronidazole 500 mg tablet 1 tab PO TID RF: 0 latanoprost 0.005 % drops 1 drp ophthalmic (eye) BEDTIME RF: 0 diclofenac sodium 75 mg tablet,delayed release (DR/EC) 1 tab PO BID RF: 0 dorzolamide-timolol 22.3-6.8 mg/mL drops 1 drp BID RF: 0 bisacodyl 5 mg tablet,delayed release (DR/EC) 4 tab PO NEEDED RF: 0 pantoprazole 40 mg tablet,delayed release (DR/EC) 40 mg PO DAILY 30 Days Qty: 30 RF: 5
[2020-04-30] MEDS: Albuterol Sulfate 90 MCG 8 GM INHALER 4 PUFF INHALE (13:41)
[2020-04-30] MEDS: dexAMETHasone sod phosphate 4 MG/ML VIAL 6 MG IVPUSH (13:45)
[2020-04-30 14:00] LABS: MANUAL DIFF FLAG NO
[2020-04-30 14:01] LABS: Basophils Absolute Auto 0.1 X10*3/uL (0.0-0.2); Basophils Percent Auto 0.9 % (0-2); Eosinophils Absolute Auto 1.1 X10*3/uL (0.0-0.4); Eosinophils Percent Auto 14.1 % (0-4); Hematocrit 42.5 % (42-52); Hemoglobin 14.7 g/dl (14.0-18.0); Imm Gran Abs Auto 0.01 X10*3/uL (0.00-0.03); Imm Gran Pct Auto 0.1 % (0.0-0.4); Lymphocytes Absolute Auto 1.7 X10*3/uL (1.2-4.9); Lymphocytes Percent Auto 21.9 % (20-40); Mean Corpuscular HGB Conc 34.6 g/dl (31.0-36.0); Mean Corpuscular Hemoglobin 30.8 pg (27.0-33.0); Mean Corpuscular Volume 89.1 fL (80-98); Mean Platelet Volume 11.1 fL (9.4-12.4); Monocytes Absolute Auto 0.7 X10*3/uL (0.1-1.2); Neutrophils Absolute Auto 4.2 X10*3/uL (2.0-8.3); Platelet Count 249 X10*3/uL (160-400); Red Blood Count 4.77 X10*6/uL (4.60-5.80); Red Cell Distribution Width 13.1 % (11.0-16.0); White Blood Count 7.9 X10*3/uL (4.8-10.8)
[2020-04-30 14:08] LABS: INTERNATIONAL NORM RATIO 1.1 (0.9-1.1); Prothrombin Time 13.3 SEC (10.8-13.0)
[2020-04-30 14:11] LABS: Partial Thromboplastin Time 35.3 SEC (24.1-38.0)
[2020-04-30 14:21] LABS: Lactic Acid 0.9 mmol/L (0.5-2.0)
[2020-04-30 14:24] LABS: C Reactive Protein 0.27 mg/dL (< or = 0.50); D Dimer 233 NG/ML
[2020-04-30 14:26] LABS: Alanine Aminotransferase 52 U/L (0-40); Albumin Level 4.4 g/dL (3.5-5.0); Alkaline Phosphatase 80 U/L (39-117); Anion Gap 13 (12-20); Aspartate Amino Transferase 33 U/L (5-37); Bilirubin Direct 0.4 mg/dL (0.0-0.5); Blood Urea Nitrogen 20 mg/dL (9-16); Calcium 9.8 mg/dL (8.4-10.2); Carbon Dioxide 27 mmol/L (22-29); Chloride 105 mmol/L (96-108); Creatinine Clr Calc Pharmacy 100.1; Estimated Glomerular Filt Rate > 60; Glucose Random 103 mg/dL (60-115); Lactate Dehydrogenase 242 U/L (118-273); Magnesium 1.8 mg/dL (1.6-2.6); Potassium 4.1 mmol/L (3.3-5.1); Sodium 141 mmol/L (135-145); Total Protein 6.9 g/dL (6.5-8.0)
[2020-04-30 14:29] LABS: B Type Natriuretic Peptide < 10 pg/mL (<100); Troponin-I High Sensitivity 5.4 ng/L (<3.5-35.0)
[2020-04-30 14:43] LABS: Procalcitonin 0.03 ng/mL
[2020-04-30 14:46] VITALS: BP 119/68; PULSE 68; RESP 20; TEMP 36.6; O2SAT 88
[2020-04-30 14:47] LABS: Ferritin 167 ng/mL (20-250)
[2020-04-30 14:50] LABS: Influenza A PCR NEGATIVE (Negative); Influenza B PCR NEGATIVE (Negative); Resp Syncy Virus RNA Qual PCR NEGATIVE (Negative); SARS COV2 PCR INHOUSE NEGATIVE (Negative)
[2020-04-30 15:17] VITALS: PULSE 65; RESP 20; O2SAT 94
[2020-04-30] MEDS: Albuterol/Iprat 2.5/0.5MG 3 ML AMPUL.NEB INHALE (16:06)
[2020-04-30 16:09] VITALS: BP 135/75; PULSE 71; RESP 18; O2SAT 96
[2020-04-30] MEDS: iohexoL 350 MG/ML 100 ML INFUS..BTL IV (16:18)
[2020-04-30 16:32] LABS: Glucose Urine UA NEG (NEG); Leukocyte Esterase Urine NEG (NEG); Nitrite Urine NEG (NEG); Urine Blood NEG (NEG); Urine Ketones NEG (NEG); Urine Protein NEG (NEG-TRACE)
[2020-04-30 16:36] LABS: Appearance Urine CLEAR; Color Urine YELLOW
[2020-04-30 16:48] LABS: Pt Ventilation O2% 2 L
[2020-04-30 16:51] LABS: Troponin-I High Sensitivity 4.9 ng/L (<3.5-35.0)
[2020-04-30 17:06] LABS: ABG PCO2 27 mmHg (32-45); HCO3 ABG 16 mmol/L (22-26); PO2 ABG 53 mmHg (83-108); pH ABG 7.38 (7.35-7.45)
[2020-04-30 17:10] VITALS: O2SAT 94
--- NOTE | 2020-04-30 17:12 | PC.NURSE ---
S/P UPDRAFT PT NOW 93-95% SPO2 ON RA.
--- NOTE | 2020-04-30 17:49 | PM.IMHP ---
History of Present Illness Date of Service: 04/30/20 Chief Complaint: Progressive shortness of breath, orthopnea This is a 64-year-old gentleman with a past medical history as outlined below who presents to the hospital with complaints of progressive shortness of breath and orthopnea over the last 2 weeks. On further questioning, the patient does endorse a longstanding history of orthopnea, however over the last about 2 weeks he feels that this has gotten significantly worse. He does endorse some bilateral lower extremity swelling which does come and go. He does endorse some nonspecific intermittent chest pain, on clear how long he may have had these symptoms. Currently denying any chest pain. 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 He reports that due to his ongoing symptoms over the last several weeks and with the ongoing pandemic he became concerned and so presented to the emergency room. He does endorse himself that he has been under increased stress as he has bought a new home recently and he wonders if his respiratory symptoms are related to anxiety. He also endorses that he was diagnosed with and is being treated for C diff with Flagyl as an outpatient. In the emergency room, the patient's workup was essentially negative, however he remained significantly hypoxic. He was treated with some updrafts and a dose of IV Decadron with somewhat improvement in his symptoms. An ABG was checked which showed significant hypoxia. He will be admitted for further work up of his hypoxia. Review of Systems Review of Systems: General - denies fevers or chills, denies weakness or fatigue HEENT -denies blurred vision, denies headache, denies sore throat Cardiovascular - denies chest pain or palpitations, +b/l LE edema, +orthopnea; Respiratory - +SOB, no cough, no known COVID contacts Gastrointestinal - denies abdominal pain, nausea, vomiting, diarrhea - denies flank pain, denies dysuria, denies frequency or urgency Musculoskeletal - denies back pain, denies hip pain, denies knee pain, denies shoulder pain Neurological - denies any focal weakness or numbness Skin, denies any bruising or redness Psychiatric - denies any suicidal ideation, hallucinations, homicidal ideation Endocrinology - denies intolerance to hot / cold temperatures PMFSH Medical History Arthritis Ascending aorta dilation Back pain Chronic diarrhea Diarrhea GERD (gastroesophageal reflux disease) Gout Hiatal hernia History of alcoholism History of esophageal varices History of Qphsi-Gpcebfxtp-Hzrux (WPW) syndrome HTN (hypertension) Idiopathic peripheral neuropathy Lumbar spondylosis Morbid obesity Pre-diabetes Shoulder injury Family History (Updated 04/30/20 @ 18:11 by Stevie Brown MD) Other Diabetes mellitus Surgical History H/O cardiac radiofrequency ablation History of colonoscopy History of esophagogastroduodenoscopy (EGD) Social History Alcohol intake: former Smoking Status: Never smoker Second Hand Smoke Exposure: No Use of substances other than those prescribed or required for medical reasons: No Advance Directives: No Advance Directives Information Provided: Yes Meds Allergies Allergy/AdvReac Type Severity Reaction Status Date / Time lisinopril [LISINOPRIL] Allergy Unknown TONGUE Verified 02/18/20 15:39 SWELLING, CONFUSION , swollen tounge and face confusion Environmental Allergy Unknown unknown Uncoded 02/18/20 15:39 lisinopril Allergy Unknown Unknown Uncoded 02/18/20 15:39 Active Medications: Current Medications Generic Name Dose Route Start Last Admin Trade Name Freq PRN Reason Stop Dose Admin Acetaminophen 650 mg 04/30/20 17:44 Acetaminophen 325 Mg Tablet PO Q6H PRN Pain, Mild (Pain Scale 1-3) Allopurinol 300 mg 05/01/20 09:00 Allopurinol 300 Mg Tablet PO DAILY [facility] Furosemide 20 mg 04/30/20 17:48 Furosemide 20 Mg/2 Ml Vial IVPUSH 04/30/20 17:49 ONCE ONE Protocol Gabapentin 300 mg 05/01/20 09:00 Gabapentin 300 Mg Capsule PO DAILY [facility] Latanoprost 1 drop 04/30/20 21:00 Latanoprost 0.005 % Ophth Lorena 2.5 Ml Drops EYE-BOTH BEDTIME [facility] Metoprolol Succinate 200 mg 05/01/20 09:00 Metoprolol Succinate Er 100 Mg Tab.Er.24h PO DAILY [facility] Protocol Metronidazole 500 mg 04/30/20 21:00 Metronidazole 500 Mg Tablet PO TID [facility] Non-Formulary Medication 40 mg 05/01/20 09:00 Pantoprazole PO DAILY [facility] Pharmacy Consult 1 each 04/30/20 13:35 Consult Rx Perform Med Rec MISCELLANE ONCE PRN Consult order Sodium Chloride 3 ml 05/01/20 00:00 0.9 % Sodium Chloride Flush 3 Ml Syringe IVFLUSH QSHIFT [facility] Spironolactone 25 mg 05/01/20 09:00 Spironolactone 25 Mg Tablet PO DAILY [facility] Protocol Home Medications Medication Instructions Recorded Confirmed Last Taken Type bisacodyl 4 tab PO NEEDED 12/07/19 02/22/20 Unknown History diclofenac sodium 1 tab PO BID 12/07/19 02/22/20 Unknown History dorzolamide-timolol 1 drp BID 12/07/19 04/30/20 Unknown History latanoprost 1 drp OPHTHALMIC (EYE) BEDTIME 12/07/19 04/30/20 Unknown History metronidazole 1 tab PO TID 04/30/20 04/30/20 04/30/20 12:00 History Physical Exam Vital Signs and Narrative: Vital Signs: Last Vital Signs Temp 97.8 F 04/30/20 14:46 Pulse 71 04/30/20 16:09 Resp 18 04/30/20 16:09 BP 135/75 04/30/20 16:09 Pulse Ox 94 04/30/20 17:10 Body Mass Index 35.7 Const: Other: General - denies fevers or chills, denies weakness or fatigue HEENT -denies blurred vision, denies headache, denies sore throat Cardiovascular - denies chest pain or palpitations, denies edema, 1+ pitting edema Respiratory - diminished air entry, no wheezing or rales appreciated Gastrointestinal - denies abdominal pain, nausea, vomiting, diarrhea - denies flank pain, denies dysuria, denies frequency or urgency Musculoskeletal - denies back pain, denies hip pain, denies knee pain, denies shoulder pain Neurological - denies any focal weakness or numbness Skin, denies any bruising or redness Psychiatric - denies any suicidal ideation, hallucinations, homicidal ideation Endocrinology - denies intolerance to hot / cold temperatures Results Labs CBC and Chem 7: 04/30/20 13:39 04/30/20 13:39 Labs: Laboratory Results - last 24 hr 04/30/20 04/30/20 04/30/20 13:39 13:39 13:39 MCV 89.1 MCH 30.8 MCHC 34.6 RDW 13.1 Plt Count 249 MPV 11.1 Immature Gran % (Auto) 0.1 Neut % (Auto) 54.0 Lymph % (Auto) 21.9 [place] % (Auto) 9.0 Eos % (Auto) 14.1 H Baso % (Auto) 0.9 Lymph # (Auto) 1.7 [place] # (Auto) 0.7 Eos # (Auto) 1.1 H Baso # (Auto) 0.1 Abs Immat Gran (auto) 0.01 Absolute Neuts (auto) 4.2 Absolute Nucleated RBC 0.000 Nucleated RBC % (auto) 0.0 PT 13.3 H INR 1.1 APTT 35.3 D-Dimer 233 ABG pH ABG pCO2 ABG pO2 ABG HCO3 ABG O2 Saturation ABG Base Excess Oxygen Given Anion Gap 13 Estim Creat Clear Calc 100.1 Estimated GFR > 60 Random Glucose 103 Lactic Acid Calcium 9.8 Magnesium 1.8 Ferritin Total Bilirubin 1.0 Direct Bilirubin 0.4 AST 33 ALT 52 H Alkaline Phosphatase 80 Lactate Dehydrogenase 242 Troponin I High Sens C-Reactive Protein B-Natriuretic Peptide Total Protein 6.9 Albumin 4.4 Procalcitonin Urine Color Urine Appearance Urine pH Ur Specific [place] Urine Protein Urine Glucose (UA) Urine Ketones Urine Blood Urine Nitrite Ur Leukocyte Esterase Coronavirus (PCR) Influenza Type A (PCR) Influenza Type B (PCR) RSV RNA Qual (PCR) 04/30/20 04/30/20 04/30/20 13:39 13:39 13:39 MCV MCH MCHC RDW Plt Count MPV Immature Gran % (Auto) Neut % (Auto) Lymph % (Auto) [place] % (Auto) Eos % (Auto) Baso % (Auto) Lymph # (Auto) [place] # (Auto) Eos # (Auto) Baso # (Auto) Abs Immat Gran (auto) Absolute Neuts (auto) Absolute Nucleated RBC Nucleated RBC % (auto) PT INR APTT D-Dimer ABG pH ABG pCO2 ABG pO2 ABG HCO3 ABG O2 Saturation ABG Base Excess Oxygen Given Anion Gap Estim Creat Clear Calc Estimated GFR Random Glucose Lactic Acid 0.9 Calcium Magnesium Ferritin 167 Total Bilirubin Direct Bilirubin AST ALT Alkaline Phosphatase Lactate Dehydrogenase Troponin I High Sens 5.4 C-Reactive Protein 0.27 B-Natriuretic Peptide < 10 Total Protein Albumin Procalcitonin Urine Color Urine Appearance Urine pH Ur Specific [place] Urine Protein Urine Glucose (UA) Urine Ketones Urine Blood Urine Nitrite Ur Leukocyte Esterase Coronavirus (PCR) Influenza Type A (PCR) Influenza Type B (PCR) RSV RNA Qual (PCR) 04/30/20 04/30/20 04/30/20 13:39 13:39 16:18 MCV MCH MCHC RDW Plt Count MPV Immature Gran % (Auto) Neut % (Auto) Lymph % (Auto) [place] % (Auto) Eos % (Auto) Baso % (Auto) Lymph # (Auto) [place] # (Auto) Eos # (Auto) Baso # (Auto) Abs Immat Gran (auto) Absolute Neuts (auto) Absolute Nucleated RBC Nucleated RBC % (auto) PT INR APTT D-Dimer ABG pH ABG pCO2 ABG pO2 ABG HCO3 ABG O2 Saturation ABG Base Excess Oxygen Given Anion Gap Estim Creat Clear Calc Estimated GFR Random Glucose Lactic Acid Calcium Magnesium Ferritin Total Bilirubin Direct Bilirubin AST ALT Alkaline Phosphatase Lactate Dehydrogenase Troponin I High Sens 4.9 C-Reactive Protein B-Natriuretic Peptide Total Protein Albumin Procalcitonin 0.03 Urine Color Urine Appearance Urine pH Ur Specific [place] Urine Protein Urine Glucose (UA) Urine Ketones Urine Blood Urine Nitrite Ur Leukocyte Esterase Coronavirus (PCR) NEGATIVE Influenza Type A (PCR) NEGATIVE Influenza Type B (PCR) NEGATIVE RSV RNA Qual (PCR) NEGATIVE 04/30/20 04/30/20 16:26 16:43 MCV MCH MCHC RDW Plt Count MPV Immature Gran % (Auto) Neut % (Auto) Lymph % (Auto) [place] % (Auto) Eos % (Auto) Baso % (Auto) Lymph # (Auto) [place] # (Auto) Eos # (Auto) Baso # (Auto) Abs Immat Gran (auto) Absolute Neuts (auto) Absolute Nucleated RBC Nucleated RBC % (auto) PT INR APTT D-Dimer ABG pH 7.38 ABG pCO2 27 L ABG pO2 53 L ABG HCO3 16 L ABG O2 Saturation 89.0 ABG Base Excess -7.0 Oxygen Given 2 L Anion Gap Estim Creat Clear Calc Estimated GFR Random Glucose Lactic Acid Calcium Magnesium Ferritin Total Bilirubin Direct Bilirubin AST ALT Alkaline Phosphatase Lactate Dehydrogenase Troponin I High Sens C-Reactive Protein B-Natriuretic Peptide Total Protein Albumin Procalcitonin Urine Color YELLOW Urine Appearance CLEAR Urine pH 5.0 Ur Specific [place] 1.010 Urine Protein NEG Urine Glucose (UA) NEG Urine Ketones NEG Urine Blood NEG Urine Nitrite NEG Ur Leukocyte Esterase NEG Coronavirus (PCR) Influenza Type A (PCR) Influenza Type B (PCR) RSV RNA Qual (PCR) Imaging Radiologist's Impressions: Impressions Chest X-Ray 04/30/20 13:14 IMPRESSION: No evidence for acute disease in the chest. Chest CTA 04/30/20 15:11 IMPRESSION: No evidence of pulmonary emboli. VTE: negative Assessment and Plan (1) Hypoxia: Status: Acute This is a 64 yo M with multiple medical problems including HTN, Obesity, Previus WPW syndrome - s/p abaltion, Glaucoma who presented with progressive SOB with associated bilateral LE edema. He was noted to be hypoxic and so will be admitted for further work up. 1. Hypoxia ED work up negative. Based on his symptoms, question if he has developed some CHF. (last Echo in 2013 on old EMR showing diastolic dysfunction) Empiric IV lasix Echo tomorrow Also part of differential could be obesity/hypoventilation sydrome / untreated VY. He denies any personal history of tobacco, but does endorse years of second hand smoke, so may need PFTs as an outpatient. 2. HTN continue home meds 3. Recent C. Diff diagnosis on flagyl as outpatient -- will continue. 4. Obeistkeo reports he has been controlling diet and losing weight. Encouraged to continue further. continue his other chronic meds Full Code DVT pptx, Lovenov
[2020-04-30 18:17] VITALS: BP 135/84; PULSE 73; RESP 16
[2020-04-30] MEDS: Furosemide 20 MG/2 ML VIAL IVPUSH (18:17)
[2020-04-30] MEDS: metroNIDAZOLE 500 MG TABLET PO (20:47)
[2020-04-30] MEDS: Enoxaparin Sodium 40 MG/0.4 ML SYRINGE SUBCUT (20:47)
--- NOTE | 2020-04-30 20:48 | PC.NURSE ---
pt medicated as per emar.
[2020-05-01] VITALS (7 sets, daily range): BP systolic 119–144; BP diastolic 65–91; PULSE 64–78; RESP 16–20; TEMP 36–37; O2SAT 91–97; BMI 35.7
--- NOTE | 2020-05-01 00:22 | PC.NURSE ---
PT C/O OF PAIN IN FEET. PT REQUESTING HIS GOUT MEDS WHICH ARE NOT DUE UNTIL 0900 TOMORROW. CALL HOSPITALIST AT THIS TIME FOR MED REQUEST. WILL CONTINUE TO MONITOR PT.
[2020-05-01] MEDS: Indomethacin 25 MG CAPSULE 50 MG PO (01:41)
[2020-05-01] MEDS: 0.9 % Sodium Chloride Flush 3 ML SYRINGE IVFLUSH ×4 (01:43→20:33)
--- NOTE | 2020-05-01 04:44 | PC.NURSE ---
PT AWAKE AND TALKING IN FULL COMPLETE SENTENCES. PT ON MONITOR WITH A HR 68, PO 94% ON RA. PT DENIES ANY COMPLAINTS AND REQUESTING ROOM ASSIGNMENT.
[2020-05-01] MEDS: Omeprazole 20 MG CAPSULE.DR PO (06:05)
[2020-05-01] MEDS: allopurinoL 300 MG TABLET PO (09:29)
[2020-05-01] MEDS: Metoprolol Succinate ER 100 MG TAB.ER.24H 200 MG PO (09:29)
[2020-05-01] MEDS: metroNIDAZOLE 500 MG TABLET PO ×3 (09:29→20:32)
[2020-05-01] MEDS: Gabapentin 300 MG CAPSULE PO (09:29)
--- NOTE | 2020-05-01 09:51 | MHC.CM.PN ---
met with pt filed a hcp pt had no servceis prior to admission he does not anticapate needing services when dcd pt has own transportaion home
[2020-05-01] MEDS: guaiFENesin 100 MG/5 ML LIQUID PO ×2 (14:47→21:08)
--- NOTE | 2020-05-01 17:05 | P.PNIM_ITS ---
Subjective Subjective Date of Service: 05/01/20 Interval History: seen and examined feeling better compared to yesterday orthopnea improved, but still unable to tolerate supine position all night ROS General - no fevers or chills Cardiovascular - no chest pain, orthopnea improved Respiratory - no shortness of breath or cough Abdominal- no abdominal pain, nausea, vomiting, diarrhea Physical Exam Vital Signs: Vital Signs: Last Vital Signs Temp 96.8 F 05/01/20 15:29 Pulse 68 05/01/20 15:29 Resp 20 05/01/20 15:29 BP 144/91 H 05/01/20 15:29 Pulse Ox 91 L 05/01/20 15:29 Body Mass Index 35.7 Const: Other: General - no acute distress, appears comfortable Cardiovascular - regular rate and rhythm, S1-S2, b/l edema improved Lungs - normal respiratory effort, clear to auscultation bilaterally, no wheezing Abdomen - soft, nontender, no rebound or guarding Extremities - Neuro - awake and alert, no focal deficits Objective Data Current Medications Generic Name Dose Route Start Last Admin Trade Name Freq PRN Reason Stop Dose Admin Acetaminophen 650 mg 04/30/20 17:44 Acetaminophen 325 Mg Tablet PO Q6H PRN Pain, Mild (Pain Scale 1-3) Allopurinol 300 mg 05/01/20 09:00 05/01/20 09:29 Allopurinol 300 Mg Tablet PO 300 mg DAILY [facility] Administration Enoxaparin Sodium 40 mg 04/30/20 18:45 04/30/20 20:47 Enoxaparin Sodium 40 Mg/0.4 Ml Syringe SUBCUT 40 mg Q24H [facility] Administration Gabapentin 300 mg 05/01/20 09:00 05/01/20 09:29 Gabapentin 300 Mg Capsule PO 300 mg DAILY [facility] Administration Guaifenesin 5 ml 05/01/20 14:38 05/01/20 14:47 Guaifenesin 100 Mg/5 Ml Liquid PO 5 ml Q6H PRN Administration Cough Latanoprost 1 drop 04/30/20 21:00 05/01/20 01:43 Latanoprost 0.005 % Ophth Lorena 2.5 Ml Drops EYE-BOTH Not Given BEDTIME [facility] Metoprolol Succinate 200 mg 05/01/20 09:00 05/01/20 09:29 Metoprolol Succinate Er 100 Mg Tab.Er.24h PO 200 mg DAILY [facility] Administration Protocol Metronidazole 500 mg 04/30/20 21:00 05/01/20 14:47 Metronidazole 500 Mg Tablet PO 500 mg TID [facility] Administration Omeprazole 20 mg 05/01/20 06:30 05/01/20 06:05 Omeprazole 20 Mg Capsule. PO 20 mg DAILY@0630 [facility] Administration Pharmacy Consult 1 each 04/30/20 13:35 Consult Rx Perform Med Rec MISCELLANE ONCE PRN Consult order Sodium Chloride 3 ml 05/01/20 00:00 05/01/20 14:48 0.9 % Sodium Chloride Flush 3 Ml Syringe IVFLUSH 3 ml QSHIFT [facility] Administration Labs CBC & Chem 7: 04/30/20 13:39 04/30/20 13:39 Microbiology Microbiology Results: Microbiology 04/30/20 14:38 Blood - Venous Blood Culture - Preliminary No growth after 24 hours. 04/30/20 13:39 Blood - Venous Blood Culture - Preliminary No growth after 24 hours. Assessment and Plan (1) Hypoxia: Status: Acute Assessment and Plan: This is a 64 yo M with multiple medical problems including HTN, Obesity, Previus WPW syndrome - s/p abaltion, Glaucoma who presented with progressive SOB with associated bilateral LE edema. He was noted to be hypoxic and so will be admitted for further work up. 1. Acute resp failure with hypoxia improved due to CHF 2. Acute Diastolic CHF improved echo done -- se full results iv lasix i/o 3. HTN continue meds 3. Recent C. Diff diagnosis on flagyl as outpatient -- will continue. 4. Obeisty reports he has been controlling diet and losing weight. Encouraged to continue further. continue his other chronic meds Full Code DVT pptx, Lovenov dispo: anticipate d/c tomorrow
--- NOTE | 2020-05-01 17:44 | CA_ITS ---
Transthoracic Echocardiogram Patient (Last, First, Middle): Alek Mejia R Gender: Male Date of : 1955 Age: 64 Procedure Date: 05/01/2020 Procedure Type: Transthoracic Echocardiogram Location: [facility] [place] Height: 175.26 cm Weight: 109.77 kg BSA: 2.24 m2 Heart Rate: bpm BP: 123 / 65 mmHg Women[employer] Studies Professor: Referring MD: Stevie Brown MD Software Tools Developer: Evert Vanessa MD Symptoms: HERNANDEZ, orthopnea, LE swelling Study Quality: Fair ECG Rhythm: Sinus Conclusions: - 1. Normal LV systolic function with grade 1 diastolic dysfunction 2. Moderately dilated ascending aorta at 4.5 cm 3. Mild aortic regurgitation 4. Normal RV systolic pressure 5. Mildly dilated left atrium 6. No gross pericardial effusion Findings Left Ventricle Normal left ventricular size, thickness, and systolic function. The visually estimated ejection fraction is between 60-65%. Spectral Doppler is indicative of an impaired relaxation filling pattern. E/E prime ratio is <8, consistent with normal filling pressures. Evidence suggests grade I (mild) diastolic dysfunction. Right Ventricle The right ventricle was not well visualized. Atria The left atrium is mildly dilated. Interatrial shunt cannot be excluded. The right atrium was not well visualized. Aortic Valve The aortic valve structure and function is likely normal. There is no aortic valve stenosis. There is mild aortic valve regurgitation. Mitral Valve Likely normal mitral valve structure and function. There is no mitral valve regurgitation. There is no mitral valve stenosis. Pulmonic Valve The pulmonic valve was not well visualized. Tricuspid Valve The tricuspid valve was not well visualized. There is trace tricuspid valve regurgitation. The right ventricular systolic pressure is normal. The right ventricular systolic pressure is 22 mmHg. Normal right atrial pressure. There is no evidence of pulmonary hypertension. Great Vessels The pulmonary artery was not well visualized. There is moderate dilatation of the ascending aorta measuring 4.50 cm. Venous The inferior vena cava was not well visualized. Pericardium/Pleural There is no evidence of pericardial effusion. Prior Study Comparison No significant change compared to prior study dated: 05/27/2018. Measurements 2D Linear Measurements IVSd: 1.06 0.6-0.9/0.6-1.0 cm LVIDd: 4.26 3.9-5.3/4.2-5.9 cm LVIDd Index: 1.90 2.4-3.2/2.2-3.1 cm/m2 LVIDs: 2.55 2.0-3.6 cm LVPWd: 1.16 0.7-1.1 cm Ao Root: 4.20 2.1-3.5 cm LA Diam: 4.40 2.7-3.8/3.0-4.0 cm LAIDs Index: 1.96 1.5-2.3 cm/m2 LV Mass: 290.26 67-162/88-224 g LV Mass Index: 129.58 43-95/49-115 g/m2 LVOT Diam: 2.50 3.0+(-)1.3 cm 2D Systolic Function EF 4C: 63.50 >55% EF 2C: 58.80 >55% EF BiP: 64.60 >55% Mitral Valve MV Pk E: 0.62 MV PK A: 0.87 MV Decel Time: 320.00 E/A: 0.70 E'Lateral: 9.96 E'Medial: 5.32 E/E' Med: 11.60 E/E' Lat: 6.20 PHT: 94.00 MVA PHT: 2.34 Decel Pickett: 1.92 Aortic Valve AoV Pk Raheel: 1.62 AoV Mn Raheel: 1.21 AoV VTI: 0.38 AoV Pk Grad: 10.00 Aov Mn Grad: 7.00 NEENA Cont.VTI: 3.34 LVOT LVOT Pk Raheel: 1.16 LVOT Mn Raheel: 0.81 LVOT VTI: 0.26 LVOT Pk Grad: 5.00 LVOT Mn Grad: 3.00 LVOT Diam: 2.50 LVOT Area: 4.91 Diastolic Function MV Pk E: 0.62 MV Pk A: 0.87 E/A: 0.70 E'Medial: 5.32 E/E' Med: 11.60 E' Laterial: 9.96 E/E' Lat: 6.20 Tricuspid Valve TR Pk Raheel: 2.17 TR Pk Grad: 19.00 RA Press: 3.00 RVSP: 22.00 Great Vessels Aorta Ao Root-2D: 4.20 2.0-3.7 cm Ao Asc: 4.50 2.1-3.4 cm Pulmonary Valve PV Pk Raheel: 0.91 Peak PV Grad: 3.00 Updated in Other Vendor System with Status of Final Evert Vanessa MD electronically signed on 05/01/2020 4:05:02 PM with status of Final
[2020-05-01] MEDS: Furosemide 20 MG/2 ML VIAL IVPUSH (18:05)
[2020-05-01] MEDS: Enoxaparin Sodium 40 MG/0.4 ML SYRINGE SUBCUT (18:05)
[2020-05-02] MEDS: diphenhydrAMINE HCL 50 MG/ML VIAL 25 MG IVPUSH (00:13)
[2020-05-02 03:40] VITALS: PULSE 59; RESP 14
[2020-05-02 07:13] VITALS: BP 150/79; PULSE 60; RESP 18; TEMP 36.6; O2SAT 92
[2020-05-02] MEDS: guaiFENesin 100 MG/5 ML LIQUID PO ×2 (07:47→13:24)
[2020-05-02] MEDS: Metoprolol Succinate ER 100 MG TAB.ER.24H 200 MG PO (07:48)
[2020-05-02] MEDS: allopurinoL 300 MG TABLET PO (07:48)
[2020-05-02] MEDS: metroNIDAZOLE 500 MG TABLET PO (07:48)
[2020-05-02] MEDS: Gabapentin 300 MG CAPSULE PO (07:48)
[2020-05-02] MEDS: 0.9 % Sodium Chloride Flush 3 ML SYRINGE IVFLUSH (07:49)
--- NOTE | 2020-05-02 11:00 | MHC.CM.PN ---
Per ROUNDS discussion, Patient will be medically cleared for dc to home today, no services.
[2020-05-02 11:10] VITALS: BP 126/91; PULSE 77; RESP 18; TEMP 35.8; O2SAT 92
--- NOTE | 2020-05-02 12:53 | P.DS_ITS ---
DS: Providers Provider Date of Service: 05/02/20 Date of admission: 04/30/20 17:44 Primary care physician: Conchita Chaivs MD DS: Diagnosis Discharge Diagnosis (1) Acute diastolic CHF (congestive heart failure): Status: Acute (2) Acute respiratory failure with hypoxia: Status: Acute DS: Medications Discharge Medications Home Medications: Home Medications Medication Instructions Recorded Confirmed dorzolamide-timolol 1 drp BID 12/07/19 04/30/20 latanoprost 1 drp OPHTHALMIC (EYE) BEDTIME 12/07/19 04/30/20 metronidazole 1 tab PO TID 04/30/20 04/30/20 Previous Rx's Medication Instructions Recorded pantoprazole 40 mg tablet,delayed 40 mg PO DAILY 30 Days #30 tab 12/14/19 release spironolactone 25 mg tablet 25 mg PO DAILY #90 tab 02/08/20 allopurinol 300 mg tablet 300 mg PO DAILY #90 tab 02/10/20 nifedipine 90 mg tablet,extended 90 mg PO DAILY 30 Days #30 tab 02/10/20 release 24 hr gabapentin 300 mg capsule 300 mg PO DAILY 90 Days #90 cap 02/29/20 indomethacin 50 mg capsule 50 mg PO TID PRN 30 Days #90 cap 03/19/20 metoprolol succinate 200 mg 200 mg PO DAILY #90 tab 04/21/20 tablet,extended release 24 hr furosemide [Lasix] 20 mg PO QAM #30 tab 05/02/20 DS: Summary Hospital Course Hospital Course: Patient presented with progressive shortness of breath and orthopnea with associated lower extremity swelling. He was noted to be persistently hypoxic in the emergency room and so was admitted for further workup. He underwent CHF e valuation with a 2D echo which confirmed diastolic dysfunction. He was treated with IV Lasix with improvement in his respiratory status as well as his hypoxia. He will be discharged home with oral Lasix 20 mg daily. Additionally he will also be referred to Pulmonary for possible obstructive sleep apnea. Time Spent with Patient Time attestation: Total time spent providing and/or coordinating discharge services: Discharge coordination time: Greater than 30 minutes Physical Exam Vital Signs: Vital Signs: Last Vital Signs Temp 96.5 F L 05/02/20 11:10 Pulse 77 05/02/20 11:10 Resp 18 05/02/20 11:10 BP 126/91 H 05/02/20 11:10 Pulse Ox 92 02/23/21 11:10 Body Mass Index 35.7 Const: Other: General - no acute distress, appears comfortable Cardiovascular - regular rate and rhythm, S1-S2 Lungs - normal respiratory effort, clear to auscultation bilaterally, no wheezing Abdomen - soft, nontender, no rebound or guarding Extremities - no edema bilaterally Neuro - awake and alert, no focal deficits DS: Data Data Completed and Pending Labs on day of discharge: Preliminary micro results at discharge 04/30/20 14:38 Blood Culture - Preliminary Blood - Venous No growth after 24 hours. 04/30/20 13:39 Blood Culture - Preliminary Blood - Venous No growth after 24 hours. Discharge Plan Discharge Patient Disposition: Home, Self-Care Referrals: Conchita Chavis MD [Primary Care Provider] - Miguel Polanco MD [Physician] - (call office to schedule Appt) Discharge Medications: New furosemide [Lasix] 20 mg tablet 20 mg PO QAM Qty: 30 RF: 0 Continued spironolactone 25 mg tablet 25 mg PO DAILY Qty: 90 RF: 0 allopurinol 300 mg tablet 300 mg PO DAILY Qty: 90 RF: 1 nifedipine 90 mg tablet extended release 24hr 90 mg PO DAILY 30 Days Qty: 30 RF: 3 gabapentin 300 mg capsule 300 mg PO DAILY 90 Days Qty: 90 RF: 0 indomethacin 50 mg capsule 50 mg PO TID PRN (Reason: pain) 30 Days Qty: 90 RF: 1 metoprolol succinate 200 mg tablet extended release 24 hr 200 mg PO DAILY Qty: 90 RF: 1 metronidazole 500 mg tablet 1 tab PO TID RF: 0 latanoprost 0.005 % drops 1 drp ophthalmic (eye) BEDTIME RF: 0 dorzolamide-timolol 22.3-6.8 mg/mL drops 1 drp BID RF: 0 pantoprazole 40 mg tablet,delayed release (DR/EC) 40 mg PO DAILY 30 Days Qty: 30 RF: 5 Discontinued vancomycin 125 mg capsule 1 cap PO QID RF: 0 Discharge Orders: Discharge Order (Routine); Ordered 05/02/20 Ordered By: Stevie Brown Diet: advance to usual diet Activity on Discharge: As tolerated Stand Alone Forms: Patient Portal Discharge page Care Plan Goals: To stay healthy and out of the hospital. Health Concerns: Diastolic CHF Possible VY Plan of Treatment: Diastolic CHF - Take lasix 20mg daily. Eat a low salt diet. Possible VY - follow up with pulmonology, you may need a sleep study.
== END 2020-05-02 15:11 | disposition home or self-care (01) | DRG 194 ==
LOC: HO.ED 19:25 → HO.EDOVER 05-01 04:58 → HO.IMC 05-01 06:55
PROVIDERS: Physician Assistant; Admitting Provider Family Medicine; Emergency Provider Internal Medicine; PCP Internal Medicine; Visit Provider Family Medicine
DX: I11.0 Hypertensive heart disease with heart failure (principal); J96.01 Acute respiratory failure with hypoxia; I50.31 Acute diastolic (congestive) heart failure; M10.9 Gout, unspecified; K21.9 Gastro-esophageal reflux disease without esophagitis; A04.72 Enterocolitis due to Clostridium difficile, not specified as recurrent; E66.2 Morbid (severe) obesity with alveolar hypoventilation; Z68.35 Body mass index [BMI] 35.0-35.9, adult; Z20.822 Contact with and (suspected) exposure to COVID-19; Z79.899 Other long term (current) drug therapy
CPT/HCPCS: 0241U; 36415; 71045; 71275; 80048; 80076; 81003; 82728; 82803; 83605; 83615; 83735; 83880; 84145; 84484; 85025; 85379; 85610; 85730; 86140; 87040; 93005; 93306; 96374; 99284; 99285; J1100; J1200; J1650; J1940; Q9967

== ENCOUNTER → 2020-05-04 09:34 | Outpatient (BNVA) | payer BC, SELFPAY | PROVIDERS: PCP Internal Medicine; Visit Provider Physician Assistant ==

== ENCOUNTER → 2020-05-22 15:15 | Outpatient (BNVA) | payer BC, SELFPAY | PROVIDERS: PCP Internal Medicine; Visit Provider Internal Medicine ==

== ENCOUNTER → 2020-06-06 12:47 | Outpatient (BNVA) | payer BC, SELFPAY | PROVIDERS: PCP Internal Medicine; Visit Provider Internal Medicine Gastroenterology ==

== ENCOUNTER 2020-06-09 20:39 | Emergency (ER) | payer BC, SELFPAY ==
--- NOTE | ~2020-06-09 | XR_ITS ---
EXAMINATION: XR CHEST CLINICAL INFORMATION: Cough COMPARISON: 04/30/2020, both chest radiograph and CT angiogram chest TECHNIQUE: Frontal view of the chest was obtained. FINDINGS: Compared with the prior study, the lungs are better expanded. Heart size within normal limits. The aorta is ectatic and unfolded. No infiltrates, pleural effusions or lung masses are seen. XR/XR chest 1V IMPRESSION: No acute intrathoracic disease.
--- NOTE | ~2020-06-09 | CT_ITS ---
EXAMINATION: CT CHEST WITHOUT CONTRAST CLINICAL INFORMATION: Question pneumonia COMPARISON: Chest radiograph performed earlier today TECHNIQUE: Multidetector volumetric CT imaging of the chest was done. Axial MIP volume rendering provided. Sagittal and coronal reformatted images were obtained. This CT examination was performed using dose optimization techniques as appropriate, variously including the following: *Automated exposure control *Adjustment of mA and/or kV according to patient size (this includes techniques or standardized protocols for targeted exams where dose is matched to indication/reason for exam; i.e. extremities or head) *Use of iterative reconstruction technique DLP: 491 mGy-cm FINDINGS: LUNGS: The lungs are clear with no evidence of inflammation or nodules. No groundglass densities or infiltrates are seen. MEDIASTINUM: Coronary calcifications are present. Some small mediastinal lymph nodes are present but no adenopathy is seen. The heart size is normal. PLEURA: There is no pleural effusion. No pleural mass or thickening. AXILLA: No lymphadenopathy. UPPER ABDOMEN: A small hiatal hernia is present. Partially visualized renal cysts are seen. Cholelithiasis is present with multiple layering gallstones the largest about 6 mm in size. No evidence of cholecystitis. OSSEOUS STRUCTURES: Mild degenerative changes present in the spine. At the superior endplate of L1, there is a 1 cm lytic area seen in the left side of the vertebral body which could be a hemangioma. No other lytic areas or bony destructive lesions are seen. 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 CT/CT chest wo con IMPRESSION: The lungs are clear without infiltrates. Incidentally noted cholelithiasis, small hiatal hernia, renal cysts, nonunion right rib fracture and coronary calcifications.
[2020-06-09 20:42] VITALS: BP 133/73; PULSE 72; RESP 24; TEMP 36.9; O2SAT 94; BMI 33.2
[2020-06-09 21:34] VITALS: BP 133/79; PULSE 74; RESP 22; O2SAT 95
--- NOTE | 2020-06-09 21:48 | ECG_ITS ---
Test Reason : SOB Blood Pressure : / mmHG Vent. Rate : 069 BPM Atrial Rate : 069 BPM P-R Int : 166 ms QRS Dur : 096 ms QT Int : 406 ms P-R-T Axes : 025 -34 014 degrees QTc Int : 435 ms Normal sinus rhythm Left axis deviation Abnormal ECG When compared with ECG of 30-APR-2020 14:27, No significant change was found Referred By: Amelia Sears Electronically Signed By:Joaquín Newby
[2020-06-09 22:00] VITALS: O2SAT 95
--- NOTE | 2020-06-09 22:14 | ED_ITS ---
HPI - URI/Sore Throat General Chief Complaint: Upper Respiratory Symptoms Stated Complaint: Diff breathing Time Seen by Provider: 06/09/20 21:39 Source: patient Mode of arrival: ambulatory Limitations: no limitations History of Present Illness HPI Narrative: Patient comes emergency room complaining of coughing which started today. Patient states that prior to his arrival to the emergency room, the cough got worse. Patient denies fever chills, no shortness of breath, no known exposure to COVID, no chest pain. Patient denies vomiting or diarrhea, no fever. MD elicited complaint: cough Related Data Home Medications Medication Instructions Recorded Confirmed dorzolamide-timolol 1 drp BID 12/07/19 05/30/20 latanoprost 1 drp OPHTHALMIC (EYE) BEDTIME 12/07/19 05/30/20 Previous Rx's Medication Instructions Recorded pantoprazole 40 mg tablet,delayed 40 mg PO DAILY 30 Days #30 tab 12/14/19 release spironolactone 25 mg tablet 25 mg PO DAILY #90 tab 02/08/20 allopurinol 300 mg tablet 300 mg PO DAILY #90 tab 02/10/20 metoprolol succinate 200 mg 200 mg PO DAILY #90 tab 04/21/20 tablet,extended release 24 hr nifedipine 90 mg tablet,extended 90 mg PO DAILY 30 Days #30 tab 05/07/20 release 24 hr indomethacin 50 mg capsule 50 mg PO TID PRN 30 Days #90 cap 05/15/20 furosemide 20 mg tablet 20 mg PO QAM #30 tab 05/30/20 gabapentin 300 mg capsule 300 mg PO DAILY 90 Days #90 cap 05/30/20 azithromycin 250 mg PO DAILY 5 Days #5 tab 06/10/20 Allergies Allergy/AdvReac Type Severity Reaction Status Date / Time lisinopril [LISINOPRIL] Allergy Mild TONGUE Verified 06/06/20 12:48 SWELLING, CONFUSION , swollen tounge and face confusion Environmental Allergy Mild unknown Uncoded 05/04/20 09:35 Review of Systems Review of Systems: Constitutional : No Weight loss, No Fever, No Chills, No Night Sweats, No Fatigue, No Malaise ENT/Mouth : No Hearing loss, No Ear Pain, No Nasal Congestion, No Sinus Pain, No Hoarseness, No sore throat, No Rhinorrhea, No Swallowing Difficulty Eyes: No Eye Pain, No Swelling, No Redness, No Foreign Body, No Discharge, No Vision Changes Cardiovascular : No Chest Pain, shortness of breath while coughing only,no on Exertion, No Orthopnea, No Edema, No Palpitations Respiratory : Complaining of Cough with Sputum, No Wheezing, No Smoke Exposure, No Dyspnea, actively coughing Gastrointestinal : No Nausea, No Vomiting, No Diarrhea, No Constipation, No abdominal Pain, No Hematochezia, No Melena Genitourinary : no irregular bleeding, No Dysuria, No Urinary Frequency, No H ematuria, No Urinary Incontinence, No Urgency, No Flank Pain, No Urinary Flow Changes, No Hesitancy Musculoskeletal : No joint pain, No Myalgias, No Joint Swelling Skin : No Skin Lesions, No rash Neuro : No Weakness, No Numbness, No Paresthesias, No Loss of Consciousness, No Dizziness, No Headache Psych : No Anxiety/Panic, No Depression, No SI/HI/AH/VH, No Social Issues, Heme/Lymph: No Bruising, No Bleeding,No Lymphadenopathy Endocrine : No Polyuria, No Polydipsia, No Temperature Intolerance [facility] Past Medical History Medical History Arthritis Ascending aorta dilation Back pain Chronic diarrhea Diarrhea Esophageal varices GERD (gastroesophageal reflux disease) Gout Hiatal hernia History of alcoholism History of esophageal varices History of Yzxpk-Mbudwscky-Smzyj (WPW) syndrome HTN (hypertension) Idiopathic peripheral neuropathy Lumbar spondylosis Morbid obesity Obesity (BMI 30-39.9) VY (obstructive sleep apnea) Pre-diabetes Shoulder injury Surgical History H/O cardiac radiofrequency ablation History of colonoscopy History of esophagogastroduodenoscopy (EGD) Family History Family History Father Diabetes mellitus Social History Social History (Updated 06/06/20 @ 12:50 by ELEANOR Hernandez) Household Members: Significant Other and Family Housing: House Alcohol intake: never Smoking Status: Never smoker Smoked in Last 30 Days: No Second Hand Smoke Exposure: No Use of substances other than those prescribed or required for medical reasons: No Advance Directives: No Advance Directives Information Provided: Yes service: No Physical Exam Vital Signs: Vital Signs: Last Vital Signs Temp 98.4 F 06/09/20 20:42 Pulse 74 06/09/20 21:34 Resp 22 H 06/09/20 21:34 BP 133/79 06/09/20 21:34 Pulse Ox 95 06/09/20 22:00 Body Mass Index 33.2 Course Course Course Narrative: Patient received Tessalon Perles, patient states that he had significant improvement with this medication. Patient is on room air, no short ness of breath, no chest pain I discussed the labs and CT scan with the patient. Patient likely having bronchitis. I discussed with the patient that although his COVID test was negative, this could still be a false negative. Oxygen saturation has remained 95% on room air after walking to CT scan and after two trips to the bathroom, patient did not have shortness of breath. Wells score for PE is 0. PE is not suspected MDM - URI/Sore Throat Lab Data Result diagrams: 06/09/20 22:10 06/09/20 22:10 Labs: Lab Results 06/09/20 06/09/20 06/09/20 Range/Units 22:10 22:10 22:10 WBC 8.7 (4.8-10.8) X10*3/uL RBC 4.57 L (4.60-5.80) X10*6/uL Hgb 14.1 (14.0-18.0) g/dl Hct 41.9 L (42-52) % MCV 91.7 (80-98) fL MCH 30.9 (27.0-33.0) pg MCHC 33.7 (31.0-36.0) g/dl RDW 12.9 (11.0-16.0) % Plt Count 230 (160-400) X10*3/uL MPV 10.9 (9.4-12.4) fL Immature Gran % (Auto) 0.2 (0.0-0.4) % Neut % (Auto) 63.9 (45-73) % Lymph % (Auto) 23.9 (20-40) % [place] % (Auto) 7.4 (2-11) % Eos % (Auto) 4.3 H (0-4) % Baso % (Auto) 0.3 (0-2) % Lymph # (Auto) 2.1 (1.2-4.9) X10*3/uL [place] # (Auto) 0.6 (0.1-1.2) X10*3/uL Eos # (Auto) 0.4 (0.0-0.4) X10*3/uL Baso # (Auto) 0.0 (0.0-0.2) X10*3/uL Abs Immat Gran (auto) 0.02 (0.00-0.03) X10*3/uL Absolute Neuts (auto) 5.5 (2.0-8.3) X10*3/uL Absolute Nucleated RBC 0.000 (0.0-0.012) X10*3/uL Nucleated RBC % (auto) 0.0 (0.0-0.2) /100WBC PT (10.8-13.0) SEC INR (0.9-1.1) Sodium 141 (135-145) mmol/L Potassium 4.4 (3.3-5.1) mmol/L Chloride 106 (96-108) mmol/L Carbon Dioxide 26 (22-29) mmol/L Anion Gap 13 (12-20) BUN 19 H (9-16) mg/dL Creatinine 0.92 (0.5-1.4) mg/dL Estim Creat Clear Calc 94.2 Estimated GFR > 60 Random Glucose 121 H (60-115) mg/dL Lactic Acid (0.5-2.0) mmol/L Calcium 9.4 (8.4-10.2) mg/dL Total Bilirubin 0.8 (0.0-1.0) mg/dL Direct Bilirubin 0.2 (0.0-0.5) mg/dL AST 17 D (5-37) U/L ALT 18 (0-40) U/L Alkaline Phosphatase 84 (39-117) U/L Troponin I High Sens (<3.5-35.0) ng/L B-Natriuretic Peptide (<100) pg/mL Total Protein 6.8 (6.5-8.0) g/dL Albumin 4.2 (3.5-5.0) g/dL Urine Color Urine Appearance Urine pH (5.0-8.0) Ur Specific [place] (1.005-1.025) Urine Protein (NEG-TRACE) MG/DL Urine Glucose (UA) (NEG) MG/DL Urine Ketones (NEG) MG/DL Urine Blood (NEG) Urine Nitrite (NEG) Ur Leukocyte Esterase (NEG) Coronavirus (PCR) NEGATIVE (Negative) Influenza Type A (PCR) NEGATIVE (Negative) Influenza Type B (PCR) NEGATIVE (Negative) RSV RNA Qual (PCR) NEGATIVE (Negative) 06/09/20 06/09/20 06/09/20 Range/Units 22:10 22:10 22:10 WBC (4.8-10.8) X10*3/uL RBC (4.60-5.80) X10*6/uL Hgb (14.0-18.0) g/dl Hct (42-52) % MCV (80-98) fL MCH (27.0-33.0) pg MCHC (31.0-36.0) g/dl RDW (11.0-16.0) % Plt Count (160-400) X10*3/uL MPV (9.4-12.4) fL Immature Gran % (Auto) (0.0-0.4) % Neut % (Auto) (45-73) % Lymph % (Auto) (20-40) % [place] % (Auto) (2-11) % Eos % (Auto) (0-4) % Baso % (Auto) (0-2) % Lymph # (Auto) (1.2-4.9) X10*3/uL [place] # (Auto) (0.1-1.2) X10*3/uL Eos # (Auto) (0.0-0.4) X10*3/uL Baso # (Auto) (0.0-0.2) X10*3/uL Abs Immat Gran (auto) (0.00-0.03) X10*3/uL Absolute Neuts (auto) (2.0-8.3) X10*3/uL Absolute Nucleated RBC (0.0-0.012) X10*3/uL Nucleated RBC % (auto) (0.0-0.2) /100WBC PT 11.4 (10.8-13.0) SEC INR 1.0 (0.9-1.1) Sodium (135-145) mmol/L Potassium (3.3-5.1) mmol/L Chloride (96-108) mmol/L Carbon Dioxide (22-29) mmol/L Anion Gap (12-20) BUN (9-16) mg/dL Creatinine (0.5-1.4) mg/dL Estim Creat Clear Calc Estimated GFR Random Glucose (60-115) mg/dL Lactic Acid 1.0 (0.5-2.0) mmol/L Calcium (8.4-10.2) mg/dL Total Bilirubin (0.0-1.0) mg/dL Direct Bilirubin (0.0-0.5) mg/dL AST (5-37) U/L ALT (0-40) U/L Alkaline Phosphatase (39-117) U/L Troponin I High Sens 4.4 (<3.5-35.0) ng/L B-Natriuretic Peptide 57 (<100) pg/mL Total Protein (6.5-8.0) g/dL Albumin (3.5-5.0) g/dL Urine Color Urine Appearance Urine pH (5.0-8.0) Ur Specific [place] (1.005-1.025) Urine Protein (NEG-TRACE) MG/DL Urine Glucose (UA) (NEG) MG/DL Urine Ketones (NEG) MG/DL Urine Blood (NEG) Urine Nitrite (NEG) Ur Leukocyte Esterase (NEG) Coronavirus (PCR) (Negative) Influenza Type A (PCR) (Negative) Influenza Type B (PCR) (Negative) RSV RNA Qual (PCR) (Negative) 06/09/20 Range/Units 22:21 WBC (4.8-10.8) X10*3/uL RBC (4.60-5.80) X10*6/uL Hgb (14.0-18.0) g/dl Hct (42-52) % MCV (80-98) fL MCH (27.0-33.0) pg MCHC (31.0-36.0) g/dl RDW (11.0-16.0) % Plt Count (160-400) X10*3/uL MPV (9.4-12.4) fL Immature Gran % (Auto) (0.0-0.4) % Neut % (Auto) (45-73) % Lymph % (Auto) (20-40) % [place] % (Auto) (2-11) % Eos % (Auto) (0-4) % Baso % (Auto) (0-2) % Lymph # (Auto) (1.2-4.9) X10*3/uL [place] # (Auto) (0.1-1.2) X10*3/uL Eos # (Auto) (0.0-0.4) X10*3/uL Baso # (Auto) (0.0-0.2) X10*3/uL Abs Immat Gran (auto) (0.00-0.03) X10*3/uL Absolute Neuts (auto) (2.0-8.3) X10*3/uL Absolute Nucleated RBC (0.0-0.012) X10*3/uL Nucleated RBC % (auto) (0.0-0.2) /100WBC PT (10.8-13.0) SEC INR (0.9-1.1) Sodium (135-145) mmol/L Potassium (3.3-5.1) mmol/L Chloride (96-108) mmol/L Carbon Dioxide (22-29) mmol/L Anion Gap (12-20) BUN (9-16) mg/dL Creatinine (0.5-1.4) mg/dL Estim Creat Clear Calc Estimated GFR Random Glucose (60-115) mg/dL Lactic Acid (0.5-2.0) mmol/L Calcium (8.4-10.2) mg/dL Total Bilirubin (0.0-1.0) mg/dL Direct Bilirubin (0.0-0.5) mg/dL AST (5-37) U/L ALT (0-40) U/L Alkaline Phosphatase (39-117) U/L Troponin I High Sens (<3.5-35.0) ng/L B-Natriuretic Peptide (<100) pg/mL Total Protein (6.5-8.0) g/dL Albumin (3.5-5.0) g/dL Urine Color YELLOW Urine Appearance CLEAR Urine pH 6.5 (5.0-8.0) Ur Specific [place] 1.025 (1.005-1.025) Urine Protein NEG (NEG-TRACE) MG/DL Urine Glucose (UA) NEG (NEG) MG/DL Urine Ketones NEG (NEG) MG/DL Urine Blood NEG (NEG) Urine Nitrite NEG (NEG) Ur Leukocyte Esterase NEG (NEG) Coronavirus (PCR) (Negative) Influenza Type A (PCR) (Negative) Influenza Type B (PCR) (Negative) RSV RNA Qual (PCR) (Negative) Imaging Data Chest x-ray: Radiologist's impression: Compared with the prior study, the lungs are better expanded. Heart size within normal limits. The aorta is ectatic and unfolded. No infiltrates, pleural effusions or lung masses are seen. XR/XR chest 1V IMPRESSION: No acute intrathoracic disease. Chest CT: Radiologist's impression: FINDINGS: LUNGS: The lungs are clear with no evidence of inflammation or nodules. No groundglass densities or infiltrates are seen. MEDIASTINUM: Coronary calcifications are present. Some small mediastinal lymph nodes are present but no adenopathy is seen. The heart size is normal. PLEURA: There is no pleural effusion. No pleural mass or thickening. AXILLA: No lymphadenopathy. UPPER ABDOMEN: A small hiatal hernia is present. Partially visualized renal cysts are seen. Cholelithiasis is present with multiple layering gallstones the largest about 6 mm in size. No evidence of cholecystitis. OSSEOUS STRUCTURES: Mild degenerative changes present in the spine. At the superior endplate of L1, there is a 1 cm lytic area seen in the left side of the vertebral body which could be a hemangioma. No other lytic areas or bony destructive lesions are seen. 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 CT/CT chest wo con IMPRESSION: The lungs are clear without infiltrates. Incidentally noted cholelithiasis, small hiatal hernia, renal cysts, nonunion right rib fracture and coronary calcifications. ECG Data Attestation: I personally reviewed and interpreted this ECG as follows: (Normal sinus rhythm, heart rate 69, QTC 435, no ST segment depression or elevation, no T-wave inversion) Discharge Plan Discharge Clinical Impression: Bronchitis Patient Disposition: Home, Self-Care Instructions: Acute Bronchitis (ED) Additional Instructions: Please follow-up with your primary care physician tomorrow. If you have any worsening or new symptoms, please return to the emergency room or call 911 Prescriptions: New azithromycin 250 mg tablet 250 mg PO DAILY 5 Days Qty: 5 RF: 0 No Action spironolactone 25 mg tablet 25 mg PO DAILY Qty: 90 RF: 0 allopurinol 300 mg tablet 300 mg PO DAILY Qty: 90 RF: 1 metoprolol succinate 200 mg tablet extended release 24 hr 200 mg PO DAILY Qty: 90 RF: 1 nifedipine 90 mg tablet extended release 24hr 90 mg PO DAILY 30 Days Qty: 30 RF: 3 indomethacin 50 mg capsule 50 mg PO TID PRN (Reason: pain) 30 Days Qty: 90 RF: 1 latanoprost 0.005 % drops 1 drp ophthalmic (eye) BEDTIME RF: 0 dorzolamide-timolol 22.3-6.8 mg/mL drops 1 drp BID RF: 0 furosemide [Lasix] 20 mg tablet 20 mg PO QAM Qty: 30 RF: 0 gabapentin 300 mg capsule 300 mg PO DAILY 90 Days Qty: 90 RF: 0 pantoprazole 40 mg tablet,delayed release (DR/EC) 40 mg PO DAILY 30 Days Qty: 30 RF: 5
[2020-06-09 22:21] LABS: MANUAL DIFF FLAG NO
[2020-06-09 22:22] LABS: Basophils Percent Auto 0.3 % (0-2); Eosinophils Absolute Auto 0.4 X10*3/uL (0.0-0.4); Eosinophils Percent Auto 4.3 % (0-4); Hematocrit 41.9 % (42-52); Hemoglobin 14.1 g/dl (14.0-18.0); Imm Gran Abs Auto 0.02 X10*3/uL (0.00-0.03); Imm Gran Pct Auto 0.2 % (0.0-0.4); Lymphocytes Absolute Auto 2.1 X10*3/uL (1.2-4.9); Lymphocytes Percent Auto 23.9 % (20-40); Mean Corpuscular HGB Conc 33.7 g/dl (31.0-36.0); Mean Corpuscular Hemoglobin 30.9 pg (27.0-33.0); Mean Corpuscular Volume 91.7 fL (80-98); Mean Platelet Volume 10.9 fL (9.4-12.4); Monocytes Absolute Auto 0.6 X10*3/uL (0.1-1.2); Monocytes Percent Auto 7.4 % (2-11); Neutrophils Absolute Auto 5.5 X10*3/uL (2.0-8.3); Neutrophils Percent Auto 63.9 % (45-73); Platelet Count 230 X10*3/uL (160-400); Red Blood Count 4.57 X10*6/uL (4.60-5.80); Red Cell Distribution Width 12.9 % (11.0-16.0); White Blood Count 8.7 X10*3/uL (4.8-10.8)
[2020-06-09 22:30] LABS: Prothrombin Time 11.4 SEC (10.8-13.0)
[2020-06-09 22:30] LABS: Glucose Urine UA NEG (NEG); Leukocyte Esterase Urine NEG (NEG); Nitrite Urine NEG (NEG); PH 6.5 (5.0-8.0); Specific Gravity - Urine 1.025 (1.005-1.025); Urine Blood NEG (NEG); Urine Ketones NEG (NEG); Urine Protein NEG (NEG-TRACE)
[2020-06-09 22:33] LABS: Appearance Urine CLEAR; Color Urine YELLOW
[2020-06-09] MEDS: Benzonatate 100 MG CAPSULE 200 MG PO (22:38)
[2020-06-09 22:55] LABS: Alanine Aminotransferase 18 U/L (0-40); Albumin Level 4.2 g/dL (3.5-5.0); Alkaline Phosphatase 84 U/L (39-117); Anion Gap 13 (12-20); Aspartate Amino Transferase 17 U/L (5-37); Bilirubin Direct 0.2 mg/dL (0.0-0.5); Bilirubin Total 0.8 mg/dL (0.0-1.0); Blood Urea Nitrogen 19 mg/dL (9-16); Calcium 9.4 mg/dL (8.4-10.2); Carbon Dioxide 26 mmol/L (22-29); Chloride 106 mmol/L (96-108); Creatinine Clr Calc Pharmacy 94.2; Estimated Glomerular Filt Rate > 60; Glucose Random 121 mg/dL (60-115); Potassium 4.4 mmol/L (3.3-5.1); Sodium 141 mmol/L (135-145); Total Protein 6.8 g/dL (6.5-8.0)
[2020-06-09 23:01] LABS: B Type Natriuretic Peptide 57 pg/mL (<100); Troponin-I High Sensitivity 4.4 ng/L (<3.5-35.0)
[2020-06-09 23:04] LABS: Influenza A PCR NEGATIVE (Negative); Influenza B PCR NEGATIVE (Negative); Resp Syncy Virus RNA Qual PCR NEGATIVE (Negative); SARS COV2 PCR INHOUSE NEGATIVE (Negative)
[2020-06-10] VITALS: O2SAT 94
[2020-06-10 01:10] VITALS: O2SAT 98
[2020-06-10] MEDS: Azithromycin 500 MG TABLET PO (01:39)
== END 2020-06-10 01:32 | disposition home or self-care (01) ==
PROVIDERS: Emergency Provider Emergency Medicine; PCP Internal Medicine
DX: J20.9 Acute bronchitis, unspecified (principal); Z20.822 Contact with and (suspected) exposure to COVID-19; R93.5 Abnormal findings on diagnostic imaging of other abdominal regions, including retroperitoneum; K80.20 Calculus of gallbladder without cholecystitis without obstruction; K44.9 Diaphragmatic hernia without obstruction or gangrene; N28.1 Cyst of kidney, acquired; I51.5 Myocardial degeneration; S22.31XK Fracture of one rib, right side, subsequent encounter for fracture with nonunion; X58.XXXD Exposure to other specified factors, subsequent encounter; I10 Essential (primary) hypertension; K21.9 Gastro-esophageal reflux disease without esophagitis; F10.21 Alcohol dependence, in remission; E11.9 Type 2 diabetes mellitus without complications; Z79.899 Other long term (current) drug therapy
CPT/HCPCS: 0241U; 11104; 36415; 71045; 71250; 80048; 80076; 81003; 83605; 83880; 84484; 85025; 85610; 87040; 93005; 99284

== ENCOUNTER → 2020-06-13 10:57 | Outpatient (REF) | payer BC, SELFPAY | LOC: HO.SL 10:57 | PROVIDERS: PCP Internal Medicine; Visit Provider Internal Medicine | DX: G47.33 Obstructive sleep apnea (adult) (pediatric) (principal); E66.9 Obesity, unspecified; I51.89 Other ill-defined heart diseases | CPT/HCPCS: 95806 ==

== ENCOUNTER → 2020-06-15 12:20 | Outpatient (BNVA) | payer BC, SELFPAY | PROVIDERS: PCP Internal Medicine; Visit Provider Internal Medicine ==

== ENCOUNTER → 2020-07-03 14:26 | Outpatient (BNVA) | payer BC, SELFPAY | PROVIDERS: PCP Internal Medicine; Visit Provider Internal Medicine ==

== ENCOUNTER → 2020-08-08 11:03 | Outpatient (BNVA) | payer BC, SELFPAY | PROVIDERS: PCP Internal Medicine; Visit Provider Internal Medicine Gastroenterology ==

== ENCOUNTER 2020-08-17 11:33 | Outpatient (REF) | payer BC, SELFPAY ==
[2020-08-17 12:54] LABS: CDIFF Ag Negative (Negative); CDIFF Internal ctrl Dots and bkg OK (V); CDiff Toxin Negative (Negative)
== END 2020-08-17 11:34 | disposition home or self-care (01) ==
LOC: HO.LNP 11:33
PROVIDERS: Visit Provider Internal Medicine Gastroenterology
DX: A04.72 Enterocolitis due to Clostridium difficile, not specified as recurrent (principal)
CPT/HCPCS: 87324; 87449

== ENCOUNTER → 2020-09-07 09:56 | Outpatient (REF) | payer BC, SELFPAY ==
--- NOTE | ~2020-09-07 | NM_ITS ---
Myocardial perfusion study Indication: Chronic diastolic heart failure to evaluate for myocardial ischemia Technique: The patient was brought in for a Lexiscan perfusion study on 09/07/2020. Patient performed low-level exercise and was injected 0.4 mg of Lexiscan intravenously. Within a minute of injection, 35 mCi of sestamibi was given intravenously. Images were obtained using the SPECT gamma camera interlaced with the gating device. Images were obtained in supine position. Resting perfusion study was performed on 09/08/2020. Patient was administered 35 mCi of sestamibi intravenously at rest. Images were then obtained in supine position. Images obtained with and without CT attenuation. Total DLP 110 mGy-cm. Images were processed with the software and compared side to side in short axis, horizontal long axis and vertical long axis views. Findings: The stress perfusion study showed nonattenuated images show normal uptake of radiotracer in all segments of LV myocardium. Attenuation corrected images show mildly reduced uptake in the apex of the LV myocardium.. The gated study shows normal LV systolic function with calculated LVEF of 60%. LV cavity is normal in size. The gated study shows normal systolic wall thickening and contraction of segments. Resting study shows nonattenuated images show normal uptake of radiotracer in all segments of LV myocardium. Gating at rest reveals normal systolic wall motion with ejection fraction at 63%. The findings are consistent with normal myocardial perfusion. NM/NM cardiolite stress test Impression: 1. Myocardial perfusion imaging study shows normal myocardial perfusion 2. Gated LVEF is 60% 3. Transient ischemic dilatation not present EKG is nondiagnostic for ischemia
--- NOTE | 2020-09-07 10:00 | CA_ITS ---
Acquisition Time: 2020-09-07 10:17:13 Total Exercise Time: 00:04:02 Test Indications: HTN Medications: SEE CHART Protocol: NAREN Max HR: 103 BPM 66% of Pred: 155 BPM Max BP: 158/088 mmHG Max Work Load: 5.8 METS Exercise stress test with exercise 4 min 2 sec of Naren protocol, with mild to moderate shortness of breath hip pain and request to stop exercise, no chest discomfort, without arrythmia, with normotensive response to exercise, with nondiagnostic EKG fo schemia due to suboptimal heart rate and exercise time. Treadmill stopped and he was assisted to sitting position. Once recovered, testing changed to a pharmacological stress test with Lexiscan injection, while sitting and kicking his legs, without anginal symptoms, withoutn arrythmia, with normotensive response to injection, with nondiagnostic EKG for ischemia. Nuclear images pending. Test reviewed with Dr Vanessa. Referred By: Otilio Shaffer Overread By: JOE ALVARENGA
== END ==
LOC: HO.CARD 09:56
PROVIDERS: Visit Provider Internal Medicine
DX: I50.32 Chronic diastolic (congestive) heart failure (principal)
CPT/HCPCS: 78452; 93017; A9500; J0280; J2785

== ENCOUNTER → 2020-09-19 11:26 | Outpatient (BNVA) | payer BC, SELFPAY | PROVIDERS: PCP Internal Medicine; Referring Provider Internal Medicine; Visit Provider Internal Medicine Gastroenterology ==

== ENCOUNTER → 2020-10-31 12:29 | Outpatient (BNVA) | payer BC, SELFPAY | PROVIDERS: PCP Internal Medicine; Visit Provider Internal Medicine ==

== ENCOUNTER 2020-11-15 10:07 | Outpatient (REF) | payer BC, SELFPAY ==
[2020-11-15 11:17] LABS: Cholesterol 184 mg/dL; HDL Cholesterol 37 mg/dL; LDL Cholesterol Calculated 96 mg/dl; Triglycerides 259 mg/dL
== END 2020-11-15 10:08 | disposition home or self-care (01) ==
LOC: HO.LAB 10:07
PROVIDERS: PCP Internal Medicine; Visit Provider Internal Medicine
DX: E78.5 Hyperlipidemia, unspecified (principal)
CPT/HCPCS: 36415; 80061

== ENCOUNTER 2020-11-21 15:29 | Outpatient (REF) | payer BC, SELFPAY ==
--- NOTE | ~2020-11-21 | XR_ITS ---
EXAMINATION: XR knee RT 4V CLINICAL INFORMATION: Reason for Exam M25.561 - Pain in right knee COMPARISON: None available at the time of this dictation. TECHNIQUE: frontal, lateral, tunnel and patella sunrise views FINDINGS: BONES: No fracture or dislocation is present. JOINTS: Narrowing of joint spaces and developed osteophytes from the edges of articular surfaces suggest degenerative osteoarthritis. There is a radiolucency in the articular surface of the medial femoral condyle concerning for OCD. Versus degenerative arthritis. SOFT TISSUE: Normal XR/XR knee RT 4V IMPRESSION: Moderate degenerative osteoarthritis medial more than lateral compartment. Radiolucency in the subarticular surface of the medial femoral condyle raising concern for possible osteochondral defect. MRI could be utilized for further characterization.
== END 2020-11-21 15:30 | disposition home or self-care (01) ==
LOC: HO.HMGCX 15:29
PROVIDERS: PCP Internal Medicine; Visit Provider Internal Medicine
DX: Z13.89 Encounter for screening for other disorder (principal)
CPT/HCPCS: 73564

== ENCOUNTER → 2020-12-26 19:25 | Outpatient (REF) | payer BC, SELFPAY | LOC: HO.SL 19:25 | PROVIDERS: Visit Provider Internal Medicine | DX: G47.33 Obstructive sleep apnea (adult) (pediatric) (principal); G47.34 Idiopathic sleep related nonobstructive alveolar hypoventilation | CPT/HCPCS: 95811 ==

== ENCOUNTER → 2020-12-27 08:54 | Outpatient (BNVA) | payer BC, SELFPAY | PROVIDERS: Visit Provider Physician Assistant ==

== ENCOUNTER → 2021-02-13 09:02 | Outpatient (BNVA) | payer BC, SELFPAY | PROVIDERS: PCP Internal Medicine; Visit Provider Orthopaedic Surgery ==

== ENCOUNTER 2021-02-13 10:06 | Outpatient (REF) | payer BC, SELFPAY ==
[2021-02-13 13:41] LABS: MANUAL DIFF FLAG NO
[2021-02-13 13:49] LABS: Basophils Absolute Auto 0.1 X10*3/uL (0.0-0.2); Eosinophils Absolute Auto 0.4 X10*3/uL (0.0-0.4); Hemoglobin 12.5 g/dl (14.0-18.0); Imm Gran Abs Auto 0.01 X10*3/uL (0.00-0.03); Imm Gran Pct Auto 0.2 % (0.0-0.4); Lymphocytes Absolute Auto 1.6 X10*3/uL (1.2-4.9); Lymphocytes Percent Auto 31.4 % (20-40); Mean Corpuscular HGB Conc 34.7 g/dl (31.0-36.0); Mean Corpuscular Volume 89.3 fL (80.0-98.0); Mean Platelet Volume 11.7 fL (9.4-12.4); Monocytes Absolute Auto 0.4 X10*3/uL (0.1-1.2); Monocytes Percent Auto 8.2 % (2-11); Neutrophils Absolute Auto 2.6 x10*3/uL (2.0-8.3); Neutrophils Percent Auto 51.2 % (45-73); Platelet Count 186 X10*3/uL (160-400); Red Blood Count 4.03 X10*6/uL (4.60-5.80); Red Cell Distribution Width 12.6 % (11.0-16.0); White Blood Count 5.1 X10*3/uL (4.8-10.8)
[2021-02-13 14:29] LABS: Anion Gap 11 (12-20); Blood Urea Nitrogen 22 mg/dL (9-16); Calcium 9.8 mg/dL (8.4-10.2); Carbon Dioxide 27 mmol/L (22-29); Chloride 107 mmol/L (96-108); Estimated Glomerular Filt Rate > 60; Glucose Random 145 mg/dL (60-115); Potassium 4.2 mmol/L (3.3-5.1); Sodium 141 mmol/L (135-145)
== END 2021-02-13 10:07 | disposition home or self-care (01) ==
LOC: HO.10HDL 10:06
PROVIDERS: Visit Provider Orthopaedic Surgery
DX: Z01.812 Encounter for preprocedural laboratory examination (principal)
CPT/HCPCS: 36415; 80048; 85025

== ENCOUNTER → 2021-02-16 10:00 | Outpatient (BNVA) | payer BC, SELFPAY | PROVIDERS: Visit Provider Internal Medicine Gastroenterology ==

== ENCOUNTER → 2021-03-06 10:27 | Outpatient (REF) | payer BC, SELFPAY ==
--- NOTE | 2021-03-06 10:32 | CA_ITS ---
Transthoracic Echocardiogram Patient (Last, First, Middle): Alek Vasquez R Gender: Male Date of : 1955 Age: 65 Procedure Date: 03/06/2021 Procedure Type: Transthoracic Echocardiogram Location: OP Height: 175.26 cm Weight: 106.6 kg BSA: 2.21 m2 Heart Rate: bpm BP: 120 / 78 mmHg Marketing Analytics Specialist: LEATHA Referring MD: Otilio Shaffer MD Symptoms: I77.810 - Thoracic aortic ectasia Study Quality: Fair Conclusions: - 1. Normal LV systolic function with grade I diastolic dysfunction 2. Moderately dilated ascending aorta at 4.5 cm 3. Mild AR 4. Normal RVSP 5. No gross pericardial effusion Findings Left Ventricle Normal left ventricular size, thickness, and systolic function. The visually estimated ejection fraction is between 60-65%. Spectral Doppler is indicative of an impaired relaxation filling pattern. E/E prime ratio is <8, consistent with normal filling pressures. Evidence suggests grade I (mild) diastolic dysfunction. Right Ventricle Normal right ventricular cavity size and systolic function. Atria The left atrium is likely dilated. There is no evidence of interatrial shunt. The right atrium is normal in size. Aortic Valve The aortic valve structure and function is likely normal. There is no aortic valve stenosis. There is mild aortic valve regurgitation. Mitral Valve Likely normal mitral valve structure and function. There is mild mitral annular calcification. There is trace mitral valve regurgitation. There is no mitral valve stenosis. Pulmonic Valve The pulmonic valve is likely normal. There is trace to mild pulmonic valve regurgitation. Tricuspid Valve Normal tricuspid valve structure. There is trace tricuspid valve regurgitation. The right ventricular systolic pressure is normal. The right ventricular systolic pressure is 23 mmHg. Normal right atrial pressure. There is no evidence of pulmonary hypertension. Great Vessels The pulmonary artery was not well visualized. There is moderate dilatation of the ascending aorta measuring 4.50 cm. Venous The inferior vena cava is normal in size and collapses greater than 50% with inspiration. Pericardium/Pleural There is no evidence of pericardial effusion. Prior Study Comparison No significant change compared to prior study dated: 05/01/2020. Measurements 2D Linear Measurements IVSd: 1.11 0.6-0.9/0.6-1.0 cm LVIDd: 5.49 3.9-5.3/4.2-5.9 cm LVIDd Index: 2.48 2.4-3.2/2.2-3.1 cm/m2 LVIDs: 3.15 2.0-3.6 cm LVPWd: 1.14 0.7-1.1 cm Ao Root: 4.10 2.1-3.5 cm LA Diam: 3.80 2.7-3.8/3.0-4.0 cm LAIDs Index: 1.72 1.5-2.3 cm/m2 LV Mass: 310.14 67-162/88-224 g LV Mass Index: 140.34 43-95/49-115 g/m2 LVOT Diam: 2.50 3.0+(-)1.3 cm 2D Systolic Function EF 4C: 63.10 >55% EF 2C: 65.20 >55% EF BiP: 61.20 >55% Mitral Valve MV Pk E: 0.75 MV PK A: 0.93 MV Decel Time: 309.00 E/A: 0.80 E'Lateral: 7.72 E'Medial: 6.09 E/E' Med: 12.30 E/E' Lat: 9.70 PHT: 90.00 MVA PHT: 2.44 Decel [place]: 2.43 Aortic Valve AoV Pk Raheel: 1.62 AoV Mn Raheel: 1.04 AoV VTI: 0.34 AoV Pk Grad: 10.00 Aov Mn Grad: 5.00 NEENA Cont.VTI: 4.01 LVOT LVOT Pk Raheel: 1.13 LVOT Mn Raheel: 0.80 LVOT VTI: 0.28 LVOT Pk Grad: 5.00 LVOT Mn Grad: 3.00 LVOT Diam: 2.50 LVOT Area: 4.91 Diastolic Function MV Pk E: 0.75 MV Pk A: 0.93 E/A: 0.80 E'Medial: 6.09 E/E' Med: 12.30 E' Laterial: 7.72 E/E' Lat: 9.70 Right Ventricle TAPSE (mm): 21.90 TVS' Raheel: 16.10 Tricuspid Valve TR Pk Raheel: 2.22 TR Pk Grad: 20.00 RA Press: 3.00 RVSP: 23.00 Great Vessels Aorta Ao Root-2D: 4.10 2.0-3.7 cm Ao Asc: 4.50 2.1-3.4 cm Updated in Other Vendor System with Status of Final Evert Vanessa MD electronically signed on 03/06/2021 2:48:58 PM with status of Final
== END ==
LOC: HO.CARD 10:27
PROVIDERS: Visit Provider Internal Medicine
DX: I77.810 Thoracic aortic ectasia (principal)
CPT/HCPCS: 93306

== ENCOUNTER → 2021-03-12 09:38 | Outpatient (BNVA) | payer BC, SELFPAY | PROVIDERS: PCP Internal Medicine; Referring Provider Internal Medicine; Visit Provider Internal Medicine ==

== ENCOUNTER 2021-03-14 08:14 | Outpatient (REF) | payer BC, SELFPAY ==
[2021-03-14 10:00] LABS: Binax Internal Control QC Valid; Binax Lot number: 9864; Binax Now Covid-19 Ag Negative (Negative)
== END 2021-03-14 08:15 | disposition home or self-care (01) ==
LOC: HO.LAB 08:14
PROVIDERS: Visit Provider Internal Medicine
DX: Z20.822 Contact with and (suspected) exposure to COVID-19 (principal)
CPT/HCPCS: 36415; C9803

== ENCOUNTER 2021-03-16 12:42 | Outpatient (REF) | payer BC, SELFPAY ==
--- NOTE | ~2021-03-16 | XR_ITS ---
EXAMINATION: XR ANKLE, LEFT CLINICAL INFORMATION: Left ankle sprain COMPARISON: Calcaneal study of October 06, 2010 TECHNIQUE: AP, lateral, and mortise views of the left ankle. FINDINGS: There is a nondisplaced vertical/oblique fracture of the distal fibula. Soft tissue swelling is present about the ankle. There is sequela of previous trauma of the lateral malleolus. A small plantar calcaneal spur is present. XR/XR ankle LT min 3V IMPRESSION: Nondisplaced fracture distal left fibula.
== END 2021-03-16 12:43 | disposition home or self-care (01) ==
LOC: HO.HMGCX 12:42
PROVIDERS: PCP Internal Medicine; Visit Provider Internal Medicine
DX: S93.402D Sprain of unspecified ligament of left ankle, subsequent encounter (principal)
CPT/HCPCS: 73610

== ENCOUNTER → 2021-03-20 10:24 | Outpatient (BNVA) | payer BC, SELFPAY | PROVIDERS: PCP Internal Medicine; Visit Provider Physician Assistant ==

== ENCOUNTER 2021-04-03 10:03 | Inpatient (IN) | payer BC, SELFPAY ==
--- NOTE | 2021-02-28 | ECG_ITS ---
Test Reason : preop Blood Pressure : / mmHG Vent. Rate : 058 BPM Atrial Rate : 058 BPM P-R Int : 164 ms QRS Dur : 102 ms QT Int : 432 ms P-R-T Axes : 037 -36 007 degrees QTc Int : 424 ms Sinus bradycardia Left axis deviation Borderline ECG No significant changes when compared with the previous EKG of june 09, 2020 Referred By: More Deutsch Electronically Signed By:JONAH CORONA
[2021-02-28 12:11] VITALS: BP 137/81; PULSE 58; RESP 16; O2SAT 96; BMI 34.7
--- NOTE | 2021-02-28 12:34 | HO.ANESPROP2 ---
Documented by User: More Deutsch NP 04/02/21 09:23 HPI - Anesthesia Eval Consult details Narrative: 65yo M for Right Knee Replacement Total Cardiac cleared at low to intermed (PCP defers to cardiol for clearance) 03/10/21 L ankle fracture. Per RACHEAL Mahajan, pt ok for TKA 04/03/21 PMFSH Active Problems Active Problems: All Active Problems (Updated 02/28/21 @ 12:29 by Fadumo Burroughs RN) Glaucoma (Acute) Acute diastolic CHF (congestive heart failure) (Acute) Acute respiratory failure with hypoxia (Acute) C. difficile diarrhea (Acute) Diastolic dysfunction (Acute) Hospital discharge follow-up (Acute) C. difficile diarrhea (Acute) Coronary artery calcification seen on CAT scan (Acute) Knee pain, right (Acute) Osteoarthritis of right knee (Acute) Irritable bowel syndrome with diarrhea (Acute) Chronic right heart failure (Acute) Nocturnal hypoxemia (Acute) VY (obstructive sleep apnea) (Acute) Obesity (BMI 30-39.9) (Acute) Chronic heart failure with preserved ejection fraction (HFpEF) (Acute) Essential hypertension (Acute) Ascending aorta dilation (Acute) VY (obstructive sleep apnea) (Acute) Obesity (BMI 30-39.9) (Acute) Shoulder injury (Acute) Lumbar spondylosis (Acute) Chronic diarrhea (Acute) Idiopathic peripheral neuropathy (Acute) Morbid obesity (Acute) Gout (Acute) HTN (hypertension) (Acute) Pre-diabetes (Acute) Past Medical History Medical History Arthritis Ascending aorta dilation Back pain Chronic diarrhea Chronic heart failure with preserved ejection fraction (HFpEF) Chronic right heart failure Diarrhea Esophageal varices Essential hypertension GERD (gastroesophageal reflux disease) Gout Hiatal hernia History of alcoholism History of esophageal varices History of GI bleed History of Mhajm-Ooqgaggnc-Iqmfi (WPW) syndrome HTN (hypertension) Idiopathic peripheral neuropathy Lumbar spondylosis Morbid obesity Nocturnal hypoxemia Obesity (BMI 30-39.9) Obesity (BMI 30-39.9) VY (obstructive sleep apnea) VY (obstructive sleep apnea) Pre-diabetes Shoulder injury Family History Family History Father Diabetes mellitus Family history of problems with anesthesia: No Surgical History Surgical History H/O cardiac radiofrequency ablation History of colonoscopy History of esophagogastroduodenoscopy (EGD) History of Problems with Anesthesia: No Social History Social History Household Members: Significant Other and Family Household Members Other:: brother Housing: House Are you a primary foster care therapist to a significant other at home: No Do you presently have visiting nurse or other home services: No Alcohol intake: former Year quit: 1998 Patient Tobacco Use Status: Never used Tobacco Second Hand Smoke Exposure: No Use of substances other than those prescribed or required for medical reasons: No Have you been hit, kicked, punched, or otherwise hurt by someone within the past year? 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 No CP/SOB within limits of pain. Meds Allergies Allergy/AdvReac Type Severity Reaction Status Date / Time lisinopril [LISINOPRIL] Allergy Mild TONGUE Verified 03/16/21 12:26 SWELLING, CONFUSION Home Medications Medication Instructions Recorded Confirmed Last Taken Type dorzolamide 22.3 mg-timolol 6.8 1 drp OPHTHALMIC (EYE) BEDTIME 12/07/19 04/03/21 04/02/21 History mg/mL eye drops latanoprost 0.005 % eye drops 1 drp OPHTHALMIC (EYE) BEDTIME 12/07/19 04/03/21 04/02/21 History brimonidine 0.2 % eye drops 1 drp OPHTHALMIC-LEFT BID 02/16/21 04/03/21 04/02/21 History ascorbic acid (vitamin C) 500 mg 500 mg PO BID 04/03/21 04/03/21 Unknown History chewable tablet (Vitamin C) diphenhydramine HCl 25 mg capsule 25 mg PO BEDTIME PRN 04/03/21 04/03/21 Unknown History (Benadryl) furosemide 20 mg tablet (Lasix) 20 mg PO DAILY 04/03/21 04/03/21 04/02/21 History loperamide 2 mg tablet (Imodium 2 mg PO BID 04/03/21 04/03/21 Unknown History A-D) multivitamin 1 tab PO DAILY 04/03/21 04/03/21 04/02/21 History Exam Exam Date and Time: February 28, 2021 1234 Height,Weight and Vital Signs: Height 5 ft 9 in Weight 106.594 kg Last Vital Signs Pulse 58 02/28/21 12:11 Resp 16 02/28/21 12:11 BP 137/81 02/28/21 12:11 Pulse Ox 96 02/28/21 12:11 Pertinent Lab Results Pertinent Lab Results: Lab Results 02/28/21 02/28/21 Range/Units 12:45 13:10 Nasal Screen MRSA (PCR) NEGATIVE (Negative) Nasal S. aureus Screen NEGATIVE (Negative) Nasal MRSA/S.aureus Interp SEE NOTE Blood Type A Positive Antibody Screen NEGATIVE Laboratory Tests 02/13/21 02/13/21 10:08 10:08 WBC 5.1 Hgb 12.5 L Hct 36.0 L Plt Count 186 Sodium 141 Potassium 4.2 Chloride 107 Carbon Dioxide 27 BUN 22 H Creatinine 1.04 Narrative Narrative: EKG 02/2021 Vent. Rate : 058 BPM ? ? Atrial Rate : 058 BPM ?? P-R Int : 164 ms? QRS Dur : 102 ms ? ? QT Int : 432 ms ? ? ? P-R-T Axes : 037 -36 007 degrees ?? QTc Int : 424 ms ? Sinus bradycardia Left axis deviation Borderline ECG No significant changes when compared with the previous EKG? of june 09, 2020 ECHO 02/2021 Conclusions: - 1. Normal LV systolic function with grade I diastolic? dysfunction? 2. Moderately dilated ascending aorta at 4.5 cm? 3. Mild AR ? 4. Normal RVSP ? 5. No gross pericardial effusion ?? NM cardiolite stress test 09/2020 Impression: ? 1.? Myocardial perfusion imaging study shows normal myocardial perfusion 2.? Gated LVEF is 60% 3. Transient ischemic dilatation not present ? EKG is nondiagnostic for ischemia Airway Mallampati Class: II (Small mouth) TM Dist: >3cm Neck ROM: Full Loose/Missing/Broken Teeth: Yes (Multiple missing throughout) Heart: RRR Lungs: CTAB Assessment and Plan Assessment Anesthesia Assessment: Anesthesia Plan Discussed and PAT Visit Final Anesthetic Review Family History of Problems with Anesthesia: No History of Problems with Anesthesia: No Documented by User: Clif Ni MD 04/03/21 13:29 [facility] Past Medical History Medical History Arthritis Ascending aorta dilation Back pain Chronic diarrhea Chronic heart failure with preserved ejection fraction (HFpEF) Chronic right heart failure Diarrhea Esophageal varices Essential hypertension GERD (gastroesophageal reflux disease) Gout Hiatal hernia History of alcoholism History of esophageal varices History of GI bleed History of Dypck-Ouafdwsfc-Lgstv (WPW) syndrome HTN (hypertension) Idiopathic peripheral neuropathy Lumbar spondylosis Morbid obesity Nocturnal hypoxemia Obesity (BMI 30-39.9) Obesity (BMI 30-39.9) VY (obstructive sleep apnea) VY (obstructive sleep apnea) Pre-diabetes Shoulder injury Family History Family History Father Diabetes mellitus Surgical History Surgical History H/O cardiac radiofrequency ablation History of colonoscopy History of esophagogastroduodenoscopy (EGD) Social History Social History Household Members: Significant Other and Family Household Members Other:: brother Housing: House Are you a primary foster care therapist to a significant other at home: No Do you presently have visiting nurse or other home services: No Alcohol intake: former Year quit: 1998 Patient Tobacco Use Status: Never used Tobacco Second Hand Smoke Exposure: No Use of substances other than those prescribed or required for medical reasons: No Have you been hit, kicked, punched, or otherwise hurt by someone within the past year? 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 Meds Allergies Allergy/AdvReac Type Severity Reaction Status Date / Time lisinopril [LISINOPRIL] Allergy Mild TONGUE Verified 03/16/21 12:26 SWELLING, CONFUSION Home Medications Medication Instructions Recorded Confirmed Last Taken Type dorzolamide 22.3 mg-timolol 6.8 1 drp OPHTHALMIC (EYE) BEDTIME 12/07/19 04/03/21 04/02/21 History mg/mL eye drops latanoprost 0.005 % eye drops 1 drp OPHTHALMIC (EYE) BEDTIME 12/07/19 04/03/21 04/02/21 History brimonidine 0.2 % eye drops 1 drp OPHTHALMIC-LEFT BID 02/16/21 04/03/21 04/02/21 History ascorbic acid (vitamin C) 500 mg 500 mg PO BID 04/03/21 04/03/21 Unknown History chewable tablet (Vitamin C) diphenhydramine HCl 25 mg capsule 25 mg PO BEDTIME PRN 04/03/21 04/03/21 Unknown History (Benadryl) furosemide 20 mg tablet (Lasix) 20 mg PO DAILY 04/03/21 04/03/21 04/02/21 History loperamide 2 mg tablet (Imodium 2 mg PO BID 04/03/21 04/03/21 Unknown History A-D) multivitamin 1 tab PO DAILY 04/03/21 04/03/21 04/02/21 History Exam Airway Loose/Missing/Broken Teeth: Yes (Multiple missing and broken throughout) Assessment and Plan Final Anesthetic Review NPO: Yes ASA Class: III Final Preanesthetic Review: No Changes in Pt Med Stat, Meds/Allgs Chart Reviewed, Consent Obtained/Reviewed and Anes Risks/Benef Reviewed Patient Risk: High Procedure Risk: Intermediate Anesthetic Plan Anesthetic Plan: MAC:, Spinal and Regional Block Disposition: Standard PACU
[2021-02-28 14:38] LABS: MRSA Nasal PCR NEGATIVE (Negative); SA Nasal PCR NEGATIVE (Negative)
[2021-04-03] VITALS (10 sets, daily range): BP systolic 98–149; BP diastolic 57–82; PULSE 53–75; RESP 16–17; TEMP 36.1–36.8; O2SAT 95–99
--- NOTE | ~2021-04-03 | XR_ITS ---
EXAMINATION: XR KNEE, RIGHT CLINICAL INFORMATION: Right TKA. COMPARISON: Right knee 11/21/2020 TECHNIQUE: Two views of the right knee. FINDINGS: There is a total right knee arthroplasty with prosthetic components in satisfactory alignment. Immediate postoperative changes are noted with surgical kunal along the anterior knee and gas within the joint space. XR/XR knee RT 2V IMPRESSION: Total right knee arthroplasty with prosthetic components in good alignment and immediate postop changes noted.
[2021-04-03 10:44] LABS: COVID-19 Test Negative (Negative)
--- NOTE | 2021-04-03 11:13 | PHA.MEDREC ---
Pharmacy Consult ? Medication Reconciliation Pharmacy has completed the medication reconciliation. No remarkable issues. Leah Wilcox, TylerD
[2021-04-03] MEDS: Lactated Ringers 1,000 ML 50 ML IVCONT (11:14)
--- NOTE | 2021-04-03 12:15 | MHC.SHP ---
Pre-Procedural Eval Section A Date of Service: 04/03/21 The patient is an INPATIENT: No Changes since office visit: Yes Patient answered all questions; No Cold of Flu in the past 2 weeks, No New Medical Problems and No Changes in Medication The History & Physical has been completed within 30 days and I have reviewed it.: Yes Section B Chief Complaint: RT TKA Allergies: Allergies Allergy/AdvReac Type Severity Reaction Status Date / Time lisinopril [LISINOPRIL] Allergy Mild TONGUE Verified 03/16/21 12:26 SWELLING, CONFUSION Plan I have reviewed the history and physical and performed a pertinent physical examination on my patient. No changes have occurred unless specified.
--- NOTE | 2021-04-03 13:58 | PM.OP ---
Brief Operative Note Date of Service: 04/03/21 Pre-op diagnosis: Right knee OA Post-op diagnosis: same Procedure: Right TKA Implants: Anum triathalon press fit cruciate retaining Surgeon: Julian Chavarria MD Anesthesia: regional and spinal Was an Lead Refinery Supervisor used for this Procedure?: Yes Lead Refinery Supervisor: Mariah Love Estimated blood loss (mL): 200 IV fluids (mL): 1,000 Pathology: other Condition: stable Disposition: PACU
--- NOTE | 2021-04-03 14:01 | P.OP_ITS ---
Operative Note Operative Note Date of Service: 04/03/21 Narrative: Date of Service: 04/03/21 Pre-op diagnosis: Right knee OA Post-op diagnosis: same Procedure: Right TKA Implants: Carlos triathalon press fit cruciate retaining Surgeon: Julian Chavarria MD Anesthesia: regional and spinal Was an Parts Technician used for this Procedure?: Yes Parts Technician: Mariah Love Estimated blood loss (mL): 200 IV fluids (mL): 1,000 Pathology: other Condition: stable Disposition: PACU Procedure in detail: The patient was brought to the operating room and prepped and draped in standard sterile fashion. A time-out was called to identify proper site proper procedure proper surgeon and IV antibiotics were administered. 1 g of IV tranexamic acid was administered. I began by making a midline incision to the retinaculum and performed a medial parapatellar arthrotomy. The patella was translated laterally and the knee was flexed up.The medial compartment was aburnated and the medial femoral condyle wias notable for a large osteochondral defect.. I performed a small medial peel and resected the infrapatellar fat pad. [place]'s line was then used to drill my intramedullary femoral guide and my distal femur cut of 10 mm was made in 5 degrees of valgus while protecting the soft tissues. I then measured a #5 femur and placed my cutting guide and made my anterior posterior and chamfer cuts protecting the soft tissues at all times. Once I was satisfied with my cuts I turned my attention to the tibia. I removed the meniscus medially and laterally and , using an external cutting guide, in line with the tibial crest and the third ray, I made my distal tibial cut in 3 deg slope of while protecting the PCL the posterior soft tissues at all times. An extension block was used to confirm appropriate amount of bony resection. I then sized a #5 tibia and once I was satisfied that there was complete tibial coverage I placed my trial and with the trial femur in place took the knee through range of motion. I was satisfied with the extension and flexion as well as the stability at 0, 30 and 90 degrees. I then turned my attention to the patella where I removed 1 cm from the undersurface of the patella and then trialed a 35a patellar button. Again the knee was taken through range of motion I was satisfied with the tracking. I then returned to the femur and drilled my femoral lug holes and prepared the tibia. A femoral bone plug was placed and the knee was irrigated copiously. I then press fit the patella, tibia and femur in standard fashion. I trialed different inserts until I selected a #9 insert. The final insert was placed and a 3 minutes iodine soak with local TXA was performed. The knee was then closed with a running Quill suture, a 3 0 Vicryl and kunal on the skin. Patient was then placed in sterile dressing and brought to recovery room in stable condition there were no known complications.
[2021-04-03] MEDS: Dextrose 5 % and 0.45 % NaCl 1,000 ML 80 ML IVCONT (15:04)
[2021-04-03] MEDS: oxyCODONE HCl Immed Release 5 MG TABLET PO (16:17)
[2021-04-03] MEDS: Acetaminophen 325 MG TABLET 975 MG PO (16:18)
[2021-04-03] MEDS: ceFAZolin Sodium/Dextrose,Iso 2 GM/50 ML PIGGYBACK IV (18:20)
[2021-04-03] MEDS: 0.9 % Sodium Chloride Flush 3 ML SYRINGE IVFLUSH (18:21)
[2021-04-03] MEDS: oxyCODONE HCl ER 10 MG TAB.ER.12H PO (19:17)
[2021-04-03] MEDS: Docusate Sodium 100 MG CAPSULE PO (19:17)
[2021-04-03] MEDS: Celecoxib 200 MG CAPSULE PO (19:17)
[2021-04-04] MEDS: Dextrose 5 % and 0.45 % NaCl 1,000 ML 80 ML IVCONT (02:23)
[2021-04-04 03:46] VITALS: BP 127/71; PULSE 67; RESP 18; TEMP 36.6; O2SAT 94
[2021-04-04] MEDS: HYDROmorphone HCl 1 MG/ML SYRINGE 0.25 MG IVPUSH (06:12)
[2021-04-04 06:33] LABS: Anion Gap 11 (12-20); Blood Urea Nitrogen 23 mg/dL (9-16); Calcium 9.5 mg/dL (8.4-10.2); Carbon Dioxide 25 mmol/L (22-29); Chloride 104 mmol/L (96-108); Creatinine Clr Calc Pharmacy 89.4; Estimated Glomerular Filt Rate > 60; Glucose Fasting 172 mg/dL (60-99); Potassium 3.8 mmol/L (3.3-5.1); Sodium 136 mmol/L (135-145)
[2021-04-04 06:42] LABS: Basophils Percent Auto 0.1 % (0-2); Eosinophils Percent Auto 0.1 % (0-4); Hematocrit 31.9 % (42.0-52.0); Hemoglobin 11.1 g/dl (14.0-18.0); Imm Gran Abs Auto 0.04 X10*3/uL (0.00-0.03); Imm Gran Pct Auto 0.3 % (0.0-0.4); MANUAL DIFF FLAG NO; Mean Corpuscular HGB Conc 34.8 g/dl (31.0-36.0); Mean Corpuscular Hemoglobin 31.6 pg (27.0-33.0); Mean Corpuscular Volume 90.9 fL (80.0-98.0); Mean Platelet Volume 11.6 fL (9.4-12.4); Monocytes Absolute Auto 1.3 X10*3/uL (0.1-1.2); Monocytes Percent Auto 10.9 % (2-11); Neutrophils Absolute Auto 9.2 x10*3/uL (2.0-8.3); Neutrophils Percent Auto 79.6 % (45-73); Platelet Count 164 X10*3/uL (160-400); Red Blood Count 3.51 X10*6/uL (4.60-5.80); Red Cell Distribution Width 12.5 % (11.0-16.0); White Blood Count 11.6 X10*3/uL (4.8-10.8)
[2021-04-04] MEDS: oxyCODONE HCl Immed Release 5 MG TABLET 10 MG PO ×3 (07:23→18:36)
[2021-04-04] MEDS: Acetaminophen 325 MG TABLET 650 MG PO (07:23)
[2021-04-04] MEDS: Celecoxib 200 MG CAPSULE PO ×2 (07:24→20:18)
[2021-04-04] MEDS: oxyCODONE HCl ER 10 MG TAB.ER.12H PO ×2 (07:24→20:19)
[2021-04-04] MEDS: Docusate Sodium 100 MG CAPSULE PO (07:24)
[2021-04-04 07:54] VITALS: BP 109/63; PULSE 61; RESP 18; TEMP 36.7; O2SAT 92
--- NOTE | 2021-04-04 08:08 | P.PNOP_ITS ---
Subjective Subjective Date of Service: 04/04/21 Interval history: POD 1 s/p RT TKA No overnight events resting in bed has some pain due to neuropathy denies sob, cp, palpitations. Physical Exam Verdana 4l Vital Signs: Verdana 4d Verdana 4d Vital Signs: Verdana 4d Verdana 4Bd Last Vital Signs Verdana 4d Child And Family Services Specialist New 4d Child And Family Services Specialist New 4d Temp 98.0 F 04/04/21 07:54 Child And Family Services Specialist New 4d Pulse 61 04/04/21 07:54 Child And Family Services Specialist New 4d Resp 18 04/04/21 07:54 BP 109/63 04/04/21 07:54 Pulse Ox 92 04/04/21 07:54 BMI result Body Mass Index 34.7 Const: General: cooperative, healthy appearing and no acute distress Resp: Effort & Inspection: normal respiratory effort and able to speak in complete sentences Cardio: Rate: regular rate Peripheral pulses: Peripheral pulses 2+ throughout GI: Palpation (GI): Soft to palpation Skin: General skin exam: no rashes or lesions noted Extrem: Other: bandage clean dry and intact. [place] intact. No erythema or joint effusion. Calf supple nontender. Neurovascularly intact. Procedures Date of Service Date of Service: 04/04/21 Progress Note: A&P Assessment and plan (1) Status post total right knee replacement: Status: Acute Assessment and Plan: * Continue pain mgmnt * Begin Aspirin for dvt ppx * begin PT for RT TKA * Dispo planning-Pending PT eval, pain mgmnt Fall Risk Details Current Medications: Current Medications Acetaminophen (Acetaminophen 325 Mg Tablet) 650 mg PO Q6H PRN PRN Reason: Pain, Mild (Pain Scale 1-3) Last Admin: 04/04/21 07:23 Dose: 650 mg Documented by: Celecoxib (Celecoxib 200 Mg Capsule) 200 mg PO BID [facility] Last Admin: 04/04/21 07:24 Dose: 200 mg Documented by: Docusate Sodium (Docusate Sodium 100 Mg Capsule) 100 mg PO BID [facility] Last Admin: 04/04/21 07:24 Dose: 100 mg Documented by: Hydromorphone HCl (Hydromorphone Hcl 1 Mg/Ml Syringe) 0.25 mg IVPUSH Q4H PRN; Protocol PRN Reason: Pain, Severe (Pain Scale 7-10) Last Admin: 04/04/21 06:12 Dose: 0.25 mg Documented by: Dextrose/Sodium Chloride (D51/2ns) 1,000 mls @ 80 mls/hr IVCONT .[id number] [facility] Last Admin: 04/04/21 02:23 Dose: 80 mls/hr Documented by: Ondansetron HCl (Ondansetron Hcl 4 Mg/2 Ml Vial) 4 mg IVPUSH Q8H PRN PRN Reason: Nausea and Vomiting Oxycodone HCl (Oxycodone Hcl Immed Release 5 Mg Tablet) 10 mg PO Q4H PRN PRN Reason: Pain, Moderate (Pain Scale 4-6 Last Admin: 04/04/21 07:23 Dose: 10 mg Documented by: Oxycodone HCl (Oxycodone Hcl Er 10 Mg Tab.Er.12h) 10 mg PO BID [facility] Last Admin: 04/04/21 07:24 Dose: 10 mg Documented by: Sodium Chloride (0.9 % Sodium Chloride Flush 3 Ml Syringe) 3 ml IVFLUSH QSHIFT [facility] Last Admin: 04/04/21 07:22 Dose: Not Given Documented by: Time Spent With Patient Time: Total time spent is greater than 50% in coordination of care (as documented) at patient's floor/unit and/or counseling patient: Time with patient: less than 15 minutes Quality Stroke Does the patient have a stroke diagnosis?: No VTE Prior VTE?: No VTE Risk Level:: Surgical - very high VTE Device Contraindication: N/A - Device Ordered VTE Drug Contraindication: N/A - Med Ordered
[2021-04-04] MEDS: Omeprazole 20 MG CAPSULE.DR PO (09:42)
[2021-04-04] MEDS: Indomethacin 25 MG CAPSULE 50 MG PO ×3 (09:42→20:19)
[2021-04-04] MEDS: Loperamide HCl 2 MG CAPSULE PO ×2 (09:42→20:19)
[2021-04-04] MEDS: Furosemide 20 MG TABLET PO (09:42)
[2021-04-04] MEDS: NIFEdipine ER 90 MG TAB.ER.24 PO (09:42)
[2021-04-04] MEDS: Spironolactone 25 MG TABLET PO (09:43)
[2021-04-04] MEDS: Metoprolol Succinate ER 100 MG TAB.ER.24H 200 MG PO (09:43)
[2021-04-04] MEDS: Ascorbic Acid 500 MG TABLET PO ×2 (09:43→20:19)
[2021-04-04] MEDS: Aspirin 325 MG TABLET PO ×2 (09:43→20:18)
[2021-04-04] MEDS: allopurinoL 300 MG TABLET PO (09:43)
--- NOTE | 2021-04-04 10:01 | MHC.CM.PN ---
MET WITH PT WHO EXPLINS THAT HE LIVES WITH FAMILY MEMEBERS HE IS AGREEABLE TO HOME PT THRU [facility] WHEN HE IS DCD PT [id number] FAMILY TO TRASNPORT WHEN DCD
--- NOTE | 2021-04-04 10:08 | P.CONIM_ITS ---
History of Present Illness Data of Consult Service Date: 04/04/21 Primary Care Provider: Conchita Chavis MD HPI Reason for consult: CAD, VY This is a 65 yo M with a PMH as outlined below who is admitted s/p R TKA. M edical consult requested for CAD, VY. Patient is known to me from admission April 2020 during which time he was diagnosed and treated for HFpEF. He was also referred to Pulm for outpatient sleep study and has since been diagnosed with VY. He currently reports no cardiac or pulmonary symptoms. He reports that he has been compliant with his CPAP and this has helped him. He is still working at [employer] but is currently off work due to a broken L foot and now R TKA. Review of Systems Verdana 4l Review of Systems: Verdana 4d negative except Verdana 4d HPI Verdana 4d [facility] Medical History Arthritis Ascending aorta dilation Back pain Chronic diarrhea Chronic heart failure with preserved ejection fraction (HFpEF) Chronic right heart failure Diarrhea Esophageal varices Essential hypertension GERD (gastroesophageal reflux disease) Gout Hiatal hernia History of alcoholism History of esophageal varices History of GI bleed History of Jdobx-Myhaorghw-Wrxqp (WPW) syndrome HTN (hypertension) Idiopathic peripheral neuropathy Lumbar spondylosis Morbid obesity Nocturnal hypoxemia Obesity (BMI 30-39.9) Obesity (BMI 30-39.9) VY (obstructive sleep apnea) VY (obstructive sleep apnea) Pre-diabetes Shoulder injury Family History Father Diabetes mellitus Surgical History H/O cardiac radiofrequency ablation History of colonoscopy History of esophagogastroduodenoscopy (EGD) Social History Household Members: Other Household Members Other:: girlfriend and a brother Housing: House Are you a primary wound care nurse to a significant other at home: No Do you presently have visiting nurse or other home services: No Alcohol intake: former Year quit: 1998 Patient Tobacco Use Status: Never used Tobacco Second Hand Smoke Exposure: No service: No Current occupational status: employed 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 Medical consult requested for history of CAD/VY, amongst others. Patient appears to be doing fairly well post op. He reports he worked with PT and had some knee soreness/pain but otherwise no complaints. No angina / shortness of breath. Appears to be medically stable. Continue his baseline medications. D/C IVF -- patient with history of diastlic CHF and more importantly is tolerating his diet. No current active medical issues and chronic conditions appear to be stable at this time. Will sign off. Please re-consult PRN. Meds Allergies Allergy/AdvReac Type Severity Reaction Status Date / Time lisinopril [LISINOPRIL] Allergy Mild TONGUE Verified 03/16/21 12:26 SWELLING, CONFUSION Active Medications: Current Medications Acetaminophen (Acetaminophen 325 Mg Tablet) 650 mg PO Q6H PRN PRN Reason: Pain, Mild (Pain Scale 1-3) Last Admin: 04/04/21 07:23 Dose: 650 mg Documented by: Allopurinol (Allopurinol 300 Mg Tablet) 300 mg PO DAILY [facility] Last Admin: 04/04/21 09:43 Dose: 300 mg Documented by: Ascorbic Acid (Ascorbic Acid 500 Mg Tablet) 500 mg PO BID [facility] Last Admin: 04/04/21 09:43 Dose: 500 mg Documented by: Aspirin (Aspirin 325 Mg Tablet) 325 mg PO BID [facility] Last Admin: 04/04/21 09:43 Dose: 325 mg Documented by: Atorvastatin Calcium (Atorvastatin Calcium 40 Mg Tablet) 40 mg PO BEDTIME [facility] Brimonidine Tartrate (Brimonidine Tartrate 0.2% Oph 5 Ml Bottle) 1 drop EYE- LEFT BID [facility] Celecoxib (Celecoxib 200 Mg Capsule) 200 mg PO BID [facility] Last Admin: 04/04/21 07:24 Dose: 200 mg Documented by: Diphenhydramine HCl (Diphenhydramine Hcl 25 Mg Tablet) 25 mg PO BEDTIME PRN PRN Reason: Insomnia Docusate Sodium (Docusate Sodium 100 Mg Capsule) 100 mg PO BID [facility] Last Admin: 04/04/21 07:24 Dose: 100 mg Documented by: Dorzolamide/Timolol (Dorzolamide/Timolo 2.23%/0.68% 10 Ml Drbtl) 1 drop EYE- BOTH BEDTIME [facility] Furosemide (Furosemide 20 Mg Tablet) 20 mg PO DAILY [facility]; Protocol Last Admin: 04/04/21 09:42 Dose: 20 mg Documented by: Gabapentin (Gabapentin 300 Mg Capsule) 300 mg PO BEDTIME [facility] Hydromorphone HCl (Hydromorphone Hcl 1 Mg/Ml Syringe) 0.25 mg IVPUSH Q4H PRN; Protocol PRN Reason: Pain, Severe (Pain Scale 7-10) Last Admin: 04/04/21 06:12 Dose: 0.25 mg Documented by: Indomethacin (Indomethacin 25 Mg Capsule) 50 mg PO TID [facility] Last Admin: 04/04/21 09:42 Dose: 50 mg Documented by: Latanoprost (Latanoprost 0.005 % Ophth [place] 2.5 Ml Drops) 1 drop EYE-BOTH BEDTIME [facility] Loperamide HCl (Loperamide Hcl 2 Mg Capsule) 2 mg PO BID [facility] Last Admin: 04/04/21 09:42 Dose: 2 mg Documented by: Metoprolol Succinate (Metoprolol Succinate Er 100 Mg Tab.Er.24h) 200 mg PO DAILY [facility]; Protocol Last Admin: 04/04/21 09:43 Dose: 200 mg Documented by: Multivitamins/Vitamin C (Multivitamin Tablet) 1 tab PO DAILY [facility] Last Admin: 04/04/21 09:43 Dose: Not Given Documented by: Nifedipine (Nifedipine Er 90 Mg Tab.Er.24) 90 mg PO DAILY [facility]; Protocol Last Admin: 04/04/21 09:42 Dose: 90 mg Documented by: Omeprazole (Omeprazole 20 Mg Capsule.Dr) 20 mg PO DAILY [facility] Last Admin: 04/04/21 09:42 Dose: 20 mg Documented by: Ondansetron HCl (Ondansetron Hcl 4 Mg/2 Ml Vial) 4 mg IVPUSH Q8H PRN PRN Reason: Nausea and Vomiting Oxycodone HCl (Oxycodone Hcl Immed Release 5 Mg Tablet) 10 mg PO Q4H PRN PRN Reason: Pain, Moderate (Pain Scale 4-6 Last Admin: 04/04/21 07:23 Dose: 10 mg Documented by: Oxycodone HCl (Oxycodone Hcl Er 10 Mg Tab.Er.12h) 10 mg PO BID [facility] Last Admin: 04/04/21 07:24 Dose: 10 mg Documented by: Sodium Chloride (0.9 % Sodium Chloride Flush 3 Ml Syringe) 3 ml IVFLUSH QSHIFT [facility] Last Admin: 04/04/21 07:22 Dose: Not Given Documented by: Spironolactone (Spironolactone 25 Mg Tablet) 25 mg PO DAILY [facility]; Protocol Last Admin: 04/04/21 09:43 Dose: 25 mg Documented by: Home Medications Medication Instructions Recorded Confirmed Last Taken Type dorzolamide 22.3 1 drp OPHTHALMIC 12/07/19 04/03/21 04/02/21 History mg-timolol 6.8 (EYE) BEDTIME mg/mL eye drops latanoprost 0.005 1 drp OPHTHALMIC 12/07/19 04/03/21 04/02/21 History % eye drops (EYE) BEDTIME brimonidine 0.2 % 1 drp 02/16/21 04/03/21 04/02/21 History eye drops OPHTHALMIC-LEFT BID ascorbic acid 500 mg PO BID 04/03/21 04/03/21 Unknown History (vitamin C) 500 mg chewable tablet (Vitamin C) diphenhydramine 25 mg PO BEDTIME 04/03/21 04/03/21 Unknown History HCl 25 mg capsule PRN (Benadryl) furosemide 20 mg 20 mg PO DAILY 04/03/21 04/03/21 04/02/21 History tablet (Lasix) loperamide 2 mg 2 mg PO BID 04/03/21 04/03/21 Unknown History tablet (Imodium A-D) multivitamin 1 tab PO DAILY 04/03/21 04/03/21 04/02/21 History Physical Exam Verdana 4l Vital Signs and Narrative: Verdana 4d Verdana 4d Vital Signs: Verdana 4d Verdana 4Bd Last Vital Signs Verdana 4d Diet Assistant New 4d Diet Assistant New 4d Temp 98.0 F 04/04/21 07:54 Diet Assistant New 4d Pulse 61 04/04/21 07:54 Diet Assistant New 4d Resp 18 04/04/21 07:54 BP 109/63 04/04/21 07:54 Pulse Ox 92 04/04/21 07:54 BMI result Body Mass Index 34.7 Results Labs CBC and Chem 7: 04/04/21 06:00 04/04/21 05:35 Labs: Laboratory Results - last 24 hr 04/03/21 04/03/21 04/04/21 10:25 Unknown 05:35 MCV MCH MCHC RDW Plt Count MPV Immature Gran % (Auto) Neut % (Auto) Lymph % (Auto) [place] % (Auto) Eos % (Auto) Baso % (Auto) Lymph # (Auto) [place] # (Auto) Eos # (Auto) Baso # (Auto) Abs Immat Gran (auto) Absolute Neuts (auto) Absolute Nucleated RBC Nucleated RBC % (auto) Anion Gap 11 L Estim Creat Clear Calc 89.4 Estimated GFR > 60 Fasting Glucose 172 H Calcium 9.5 COVID-19 ([facility]) Negative COVID-19 Clin Com See Note Blood Type A Positive Antibody Screen NEGATIVE 04/04/21 06:00 MCV 90.9 MCH 31.6 MCHC 34.8 RDW 12.5 Plt Count 164 MPV 11.6 Immature Gran % (Auto) 0.3 Neut % (Auto) 79.6 H Lymph % (Auto) 9.0 L [place] % (Auto) 10.9 Eos % (Auto) 0.1 Baso % (Auto) 0.1 Lymph # (Auto) 1.0 L [place] # (Auto) 1.3 H Eos # (Auto) 0.0 Baso # (Auto) 0.0 Abs Immat Gran (auto) 0.04 H Absolute Neuts (auto) 9.2 H Absolute Nucleated RBC 0.000 Nucleated RBC % (auto) 0.0 Anion Gap Estim Creat Clear Calc Estimated GFR Fasting Glucose Calcium COVID-19 ([facility]) COVID-19 Clin Com Blood Type Antibody Screen Imaging Radiologist's Impressions: Impressions Knee X-Ray 04/03/21 14:49 IMPRESSION: Total right knee arthroplasty with prosthetic components in good alignment and immediate postop changes noted.
--- NOTE | 2021-04-04 10:37 | HO.POSTANES ---
Post Anesthesia Evaluation Post Anesthesia Evaluation Vital Signs: Vital Signs Temp Pulse Resp BP Pulse Ox 04/04/21 07:54 98.0 F 61 18 109/63 92 04/04/21 03:46 97.9 F 67 18 127/71 94 04/03/21 23:45 98.2 F 75 17 116/65 95 Anesthesia: Spinal and Nerve Block Mental Status: Awake Pain Control: Satisfactory Nausea/Vomiting: None Hydration: Adequate Anesthesia-Related Issues: No Anes. Related Issues
[2021-04-04 11:36] VITALS: BP 123/75; PULSE 69; RESP 18; TEMP 36.4; O2SAT 96
[2021-04-04] MEDS: Brimonidine Tartrate 0.2% Oph 5 ML BOTTLE 1 DROP EYE-LEFT ×2 (14:28→20:22)
[2021-04-04 16:00] VITALS: BP 166/80; PULSE 70; RESP 18; TEMP 37
[2021-04-04] MEDS: 0.9 % Sodium Chloride Flush 3 ML SYRINGE IVFLUSH (18:38)
[2021-04-04 19:03] VITALS: BP 136/69; PULSE 69; RESP 18; TEMP 36.6; O2SAT 92
[2021-04-04] MEDS: Gabapentin 300 MG CAPSULE PO (20:18)
[2021-04-04] MEDS: Atorvastatin Calcium 40 MG TABLET PO (20:19)
[2021-04-04] MEDS: Dorzolamide/Timolo 2.23%/0.68% 10 ML DRBTL 1 DROP EYE-BOTH (20:22)
[2021-04-04] MEDS: Latanoprost 0.005 % Ophth Sol 2.5 ML DROPS 1 DROP EYE-BOTH (20:22)
[2021-04-05] VITALS: BP 119/69; PULSE 67; RESP 17; TEMP 36.2; O2SAT 95
[2021-04-05 03:22] VITALS: BP 100/58; PULSE 65; RESP 17; TEMP 36.3; O2SAT 97
[2021-04-05 05:46] LABS: Basophils Percent Auto 0.2 % (0-2); Mean Corpuscular Hemoglobin 31.2 pg (27.0-33.0); PLT CLUMP 1; Red Cell Distribution Width 12.5 % (11.0-16.0); SCAN SMEAR FLAG 1
[2021-04-05 05:48] LABS: Eosinophils Absolute Auto 0.2 X10*3/uL (0.0-0.4); Eosinophils Percent Auto 2.2 % (0-4); Hemoglobin 10.6 g/dl (14.0-18.0); Imm Gran Abs Auto 0.04 X10*3/uL (0.00-0.03); Imm Gran Pct Auto 0.5 % (0.0-0.4); Lymphocytes Absolute Auto 1.5 X10*3/uL (1.2-4.9); Lymphocytes Percent Auto 18.4 % (20-40); Mean Corpuscular HGB Conc 34.2 g/dl (31.0-36.0); Mean Corpuscular Volume 91.2 fL (80.0-98.0); Mean Platelet Volume 11.1 fL (9.4-12.4); Monocytes Absolute Auto 1.3 X10*3/uL (0.1-1.2); Monocytes Percent Auto 16.6 % (2-11); Neutrophils Percent Auto 62.1 % (45-73)
[2021-04-05 05:51] LABS: MANUAL DIFF FLAG NO; Platelet Count 138 X10*3/uL (160-400)
[2021-04-05 06:32] LABS: Anion Gap 11 (12-20); Blood Urea Nitrogen 19 mg/dL (9-16); Calcium 9.2 mg/dL (8.4-10.2); Carbon Dioxide 27 mmol/L (22-29); Chloride 104 mmol/L (96-108); Creatinine Clr Calc Pharmacy 93.2; Estimated Glomerular Filt Rate > 60; Glucose Fasting 112 mg/dL (60-99); Potassium 4.3 mmol/L (3.3-5.1); Sodium 138 mmol/L (135-145)
[2021-04-05] MEDS: Celecoxib 200 MG CAPSULE PO (07:46)
[2021-04-05] MEDS: Aspirin 325 MG TABLET PO (07:46)
[2021-04-05] MEDS: Metoprolol Succinate ER 100 MG TAB.ER.24H 200 MG PO (07:47)
[2021-04-05] MEDS: Multivitamin TABLET 1 TAB PO (07:47)
[2021-04-05] MEDS: NIFEdipine ER 90 MG TAB.ER.24 PO (07:47)
[2021-04-05] MEDS: Indomethacin 25 MG CAPSULE 50 MG PO ×2 (07:47→13:32)
[2021-04-05] MEDS: Spironolactone 25 MG TABLET PO (07:47)
[2021-04-05] MEDS: Acetaminophen 325 MG TABLET 650 MG PO (07:47)
[2021-04-05] MEDS: Furosemide 20 MG TABLET PO (07:48)
[2021-04-05] MEDS: oxyCODONE HCl ER 10 MG TAB.ER.12H PO (07:48)
[2021-04-05] MEDS: oxyCODONE HCl Immed Release 5 MG TABLET 10 MG PO ×2 (07:48→13:32)
[2021-04-05] MEDS: allopurinoL 300 MG TABLET PO (07:48)
[2021-04-05] MEDS: Ascorbic Acid 500 MG TABLET PO (07:48)
[2021-04-05] MEDS: Docusate Sodium 100 MG CAPSULE PO (07:48)
[2021-04-05] MEDS: Omeprazole 20 MG CAPSULE.DR PO (07:48)
[2021-04-05] MEDS: 0.9 % Sodium Chloride Flush 3 ML SYRINGE IVFLUSH (07:49)
[2021-04-05] MEDS: Brimonidine Tartrate 0.2% Oph 5 ML BOTTLE 1 DROP EYE-LEFT (07:49)
[2021-04-05 07:52] VITALS: BP 114/59; PULSE 64; RESP 18; TEMP 36.6; O2SAT 94
--- NOTE | 2021-04-05 09:02 | P.DS_ITS ---
DS: Providers Provider Date of Service: 04/05/21 Date of admission: 04/03/21 10:03 Primary care physician: Conchita Chavis MD Consults: 04/03/21 17:32 Consult to Hospitalist Routine Consulting Provider: Hospitalist Reason For Exam: CAD, VY, DS: Diagnosis Discharge Diagnosis (1) Status post total right knee replacement: Status: Acute DS: Summary Hospital Course Hospital Course: The patient underwent a successful right total knee arthroplasty, was transferred to PACU and then to the floor to recover. During their stay, their vitals were stable, afebrile at 97.8 . Labs were unremarkable, H/H 10.6/31.0. POD 1 () was started on () for DVT ppx, they also received services twice a day. Prior to discharge, their dressing was change, incision clean dry and intact, new Aquacel dressing applied and the plan was to be discharged home with VNA Time Spent with Patient Time attestation: Total time spent providing and/or coordinating discharge services: Discharge coordination time: Less than 30 minutes Quality: Stroke Does the patient have a stroke diagnosis?: No Physical Exam Verdana 4l Vital Signs: Verdana 4d Verdana 4d Vital Signs: Verdana 4d Verdana 4Bd Last Vital Signs Verdana 4d Hog Grader New 4d Hog Grader New 4d Temp 97.8 F 04/05/21 07:52 Hog Grader New 4d Pulse 64 04/05/21 07:52 Hog Grader New 4d Resp 18 04/05/21 07:52 BP 114/59 L 04/05/21 07:52 Pulse Ox 94 04/05/21 07:52 BMI result Body Mass Index 34.7 Const: General: cooperative, healthy appearing and no acute distress Resp: Effort & Inspection: normal respiratory effort and able to speak in complete sentences Cardio: Rate: regular rate Peripheral pulses: Peripheral pulses 2+ throughout GI: Palpation (GI): Soft to palpation Skin: General skin exam: no rashes or lesions noted Extrem: Other: incision clean dry and intact. [place] intact. No erythema or joint effusion. Calf supple nontender. Neurovascularly intact. DS: Data Data Completed and Pending Pending studies at discharge: Pending at discharge 04/03/21 13:50 Surgical [PTH] Routine Labs on day of discharge: Laboratory Results - last 24 hr 04/05/21 04/05/21 05:31 05:31 WBC 8.0 RBC 3.40 L Hgb 10.6 L Hct 31.0 L MCV 91.2 MCH 31.2 MCHC 34.2 RDW 12.5 Plt Count 138 L MPV 11.1 Immature Gran % (Auto) 0.5 H Neut % (Auto) 62.1 Lymph % (Auto) 18.4 L [place] % (Auto) 16.6 H Eos % (Auto) 2.2 Baso % (Auto) 0.2 Lymph # (Auto) 1.5 [place] # (Auto) 1.3 H Eos # (Auto) 0.2 Baso # (Auto) 0.0 Abs Immat Gran (auto) 0.04 H Absolute Neuts (auto) 5.0 Absolute Nucleated RBC 0.000 Nucleated RBC % (auto) 0.0 Sodium 138 Potassium 4.3 Chloride 104 Carbon Dioxide 27 Anion Gap 11 L BUN 19 H Creatinine 0.95 Estim Creat Clear Calc 93.2 Estimated GFR > 60 Fasting Glucose 112 H Calcium 9.2 Discharge Plan Discharge Patient Disposition: Home Health Service Discharge Diagnosis: RT TKA Referrals: Dianna Schulz PA-C [Physician Dice Person] - 2 Weeks (04/19/21 2:15 [facility] Dianna Schulz PA-C) Discharge Medications: New docusate sodium 100 mg Capsule 100 mg PO BID 14 Days Qty: 28 0RF oxycodone 10 mg tablet 10 mg PO Q4H PRN (Reason: Pain, Moderate (Pain Scale 4-6) 7 Days Qty: 42 0RF celecoxib 200 mg Capsule 200 mg PO BID 14 Days Qty: 28 0RF acetaminophen 325 mg Tablet 650 mg PO Q6H PRN (Reason: Pain, Mild (Pain Scale 1-3)) 30 Days Qty: 240 0RF aspirin 325 mg Tablet 325 mg PO BID 42 Days Qty: 84 0RF Continued spironolactone 25 mg tablet 25 mg PO DAILY Qty: 90 3RF nifedipine 90 mg tablet extended release 24hr 90 mg PO DAILY Qty: 90 3RF metoprolol succinate 200 mg tablet extended release 24 hr 200 mg PO DAILY Qty: 90 3RF atorvastatin 40 mg tablet 40 mg PO BEDTIME 90 Days Qty: 90 1RF Rx Instructions: Lab work 02/15/21 allopurinol 300 mg tablet 300 mg PO DAILY Qty: 90 1RF indomethacin 50 mg capsule 50 mg PO TID PRN (Reason: pain) 30 Days Qty: 90 0RF pantoprazole 40 mg tablet,delayed release (DR/EC) 40 mg PO DAILY 30 Days Qty: 30 6RF gabapentin 300 mg capsule 300 mg PO BEDTIME 30 Days Qty: 30 0RF latanoprost 0.005 % drops 1 drp ophthalmic (eye) BEDTIME 0RF dorzolamide-timolol 22.3-6.8 mg/mL drops 1 drp ophthalmic (eye) BEDTIME 0RF furosemide [Lasix] 20 mg tablet 20 mg PO DAILY 0RF multivitamin Tablet 1 tab PO DAILY 0RF loperamide [Imodium A-D] 2 mg Tablet 2 mg PO BID 0RF diphenhydramine HCl [Benadryl] 25 mg Capsule 25 mg PO BEDTIME PRN (Reason: Insomnia) 0RF ascorbic acid (vitamin C) [Vitamin C] 500 mg Tablet,Chewable 500 mg PO BID 0RF brimonidine 0.2 % drops 1 drp ophthalmic-Left BID 0RF Discharge Orders: Discharge Order (Routine); Ordered 04/05/21 Ordered By: Mariah Love Diet: regular diet Activity on Discharge: Use cane or walker Stand Alone Forms: Patient Portal Discharge page Care Plan Goals: Restore function of joint Health Concerns: none Plan of Treatment: Physical Therapy Pain management DVT prophylaxis Assessment: * Physical Therapy for Total knee arthroplasty: gait training, ROM 0-12, quad strength * Limit stair climbing * No showering, no tub bath-keep dressing clean, dry and intact * No driving x6 weeks * Continue Aspirin twice a day x 6 weeks * Follow up with [facility] [place] [facility]
--- NOTE | 2021-04-05 09:03 | P.F2F_ITS ---
Service Date Service Date: 04/05/21 Encounter Date of encounter: 04/05/21 Reasons for Services Signs and symptoms assessed: right knee pain, swelling, difficulty with ambulation, unable to drive Reason for physical therapy: home safety and mobility, therapeutic exercises, restore joint function, gait/transfer training, ADL training and energy conservation Reason for occupational therapy: home safety and mobility, therapeutic exercises, restore joint function, gait/transfer training, ADL training and energy conservation MD Overseeing Care: Julian Chavarria Homebound: Leaving the home is medically contraindicated at this time without the asist of a device and/or another person due th the listed conditions above and below. Reason homebound: unsteady gait / fall risk, leg weakness, pain with ambulation, poor balance / fall risk and unable to drive Homebound supporting statement: Pt. is considered home bound due to recent surgery. Unable to drive, poor balance, poor gait mechanics. Certification: Based on the above findings, I certify that this patient is confined to the home and needs intermittent prison care, physical therapy and/or speech therapy, or continues to need occupational therapy. The patient is under my care, and I have initiated the establishment of the plan of care. The patient will be followed by a physician who will periodically review the plan of care.
--- NOTE | 2021-04-05 09:50 | MHC.CM.PN ---
PATIENT IS RETURNING HOME TODAY WITH [facility] TO TRANSPORT
[2021-04-05 11:45] VITALS: BP 107/62; PULSE 60; RESP 18; TEMP 36.6; O2SAT 94
[2021-04-05] MEDS: Loperamide HCl 2 MG CAPSULE PO (13:32)
== END 2021-04-05 14:14 | disposition home health service (06) | DRG 302 ==
LOC: HO.SSSA 10:09 → HO.S3 15:02
PROVIDERS: Physician Assistant; Admitting Provider Orthopaedic Surgery; PCP Internal Medicine; Visit Provider Orthopaedic Surgery
PROC: 0SRC0JA Replacement of Right Knee Joint with Synthetic Substitute, Uncemented, Open Approach (ICD-10-PCS; CPT 27447; principal; 2021-04-03 12:00)
DX: M17.11 Unilateral primary osteoarthritis, right knee (principal); I50.32 Chronic diastolic (congestive) heart failure; G47.33 Obstructive sleep apnea (adult) (pediatric); I25.10 Atherosclerotic heart disease of native coronary artery without angina pectoris; K21.9 Gastro-esophageal reflux disease without esophagitis; Z20.822 Contact with and (suspected) exposure to COVID-19; Z79.899 Other long term (current) drug therapy
CPT/HCPCS: 36415; 73560; 80048; 85025; 86850; 86900; 86901; 87635; 87640; 87641; 88305; 88311; 93005; 97110; 97116; 97162; 97530; C1776; J0690; J1100; J1170; J2250

== ENCOUNTER → 2021-04-09 13:32 | Outpatient (BNVA) | payer BC, SELFPAY | PROVIDERS: PCP Internal Medicine; Visit Provider Internal Medicine ==

== ENCOUNTER → 2021-04-19 14:11 | Outpatient (BNVA) | payer BC, SELFPAY | PROVIDERS: PCP Internal Medicine; Visit Provider Physician Assistant ==

== ENCOUNTER → 2021-04-26 10:58 | Outpatient (BNVA) | payer BC, SELFPAY | PROVIDERS: PCP Internal Medicine; Visit Provider Physician Assistant ==

== ENCOUNTER 2021-05-17 12:50 | Outpatient (REF) | payer BC, SELFPAY ==
--- NOTE | ~2021-05-17 | XR_ITS ---
EXAMINATION: XR AP UPRIGHT BOTH KNEES XR LATERAL PATELLA THE RIGHT KNEE CLINICAL INFORMATION: Knee pain. COMPARISON: X-ray of the right knee March 2021. X-ray of the left knee April 2019. TECHNIQUE: AP upright both knees. Lateral and patellar view right knee. FINDINGS: Right Knee: There is a total knee arthroplasty in place. The components are in the usual position and are unchanged. There is no periprosthetic fracture or surrounding abnormal lucency. There is a moderate joint effusion. The soft tissues are prominent anteriorly. Left Knee (limited): The bone and visualized knee compartments appear normal. XR/XR knee standing BI IMPRESSION: RIGHT KNEE: Right total knee arthroplasty components are unchanged compared to prior. There is a moderate joint effusion. There is also prominence of the soft tissues anteriorly. This raises the question of bursitis or soft tissue edema. LEFT KNEE (LIMITED): Unremarkable
--- NOTE | ~2021-05-17 | XR_ITS ---
EXAMINATION: XR ANKLE, LEFT CLINICAL INFORMATION: Pain in ankle joints. COMPARISON: Left ankle series March 2021. TECHNIQUE: AP, lateral, and mortise views of the left ankle. FINDINGS: The oblique fracture of the distal fibula is redemonstrated, best appreciated on the lateral projection. This appears essentially unchanged. The fracture appears nondisplaced or minimally displaced. Small ossific fragment distal to the fibula, likely ossicle or old fracture, unchanged. The remaining bones, joints and soft tissues are unremarkable. XR/XR ankle LT min 3V IMPRESSION: Unchanged distal left fibular fracture.
--- NOTE | ~2021-05-17 | XR_ITS ---
EXAMINATION: XR AP UPRIGHT BOTH KNEES XR LATERAL PATELLA THE RIGHT KNEE CLINICAL INFORMATION: Knee pain. COMPARISON: X-ray of the right knee March 2021. X-ray of the left knee April 2019. TECHNIQUE: AP upright both knees. Lateral and patellar view right knee. FINDINGS: Right Knee: There is a total knee arthroplasty in place. The components are in the usual position and are unchanged. There is no periprosthetic fracture or surrounding abnormal lucency. There is a moderate joint effusion. The soft tissues are prominent anteriorly. Left Knee (limited): The bone and visualized knee compartments appear normal. XR/XR knee RT 2V IMPRESSION: RIGHT KNEE: Right total knee arthroplasty components are unchanged compared to prior. There is a moderate joint effusion. There is also prominence of the soft tissues anteriorly. This raises the question of bursitis or soft tissue edema. LEFT KNEE (LIMITED): Unremarkable
== END 2021-05-17 12:51 | disposition home or self-care (01) ==
LOC: HO.HOSX 12:50
PROVIDERS: PCP Internal Medicine; Visit Provider Physician Assistant
DX: S82.832D Other fracture of upper and lower end of left fibula, subsequent encounter for closed fracture with routine healing (principal); Z96.651 Presence of right artificial knee joint
CPT/HCPCS: 73560; 73565; 73610

== ENCOUNTER 2021-05-29 15:12 | Outpatient (REF) | payer BC, SELFPAY ==
[2021-05-29 16:50] LABS: MANUAL DIFF FLAG NO
[2021-05-29 17:06] LABS: Estimated Average Glucose 131 mg/dL; Hemoglobin A1c % 6.2 %
[2021-05-29 17:08] LABS: Alanine Aminotransferase 14 U/L (0-40); Albumin Level 3.9 g/dL (3.5-5.0); Alkaline Phosphatase 101 U/L (39-117); Anion Gap 14 (12-20); Aspartate Amino Transferase 11 U/L (5-37); Bilirubin Total 0.6 mg/dL (0.0-1.0); Blood Urea Nitrogen 25 mg/dL (9-16); Calcium 10.3 mg/dL (8.4-10.2); Carbon Dioxide 28 mmol/L (22-29); Chloride 104 mmol/L (96-108); Estimated Glomerular Filt Rate > 60; Glucose Random 98 mg/dL (60-115); Sodium 141 mmol/L (135-145); Total Protein 7.3 g/dL (6.5-8.0)
[2021-05-29 17:28] LABS: Ferritin 249 ng/mL (20-250)
[2021-05-29 17:47] LABS: Basophils Percent Auto 0.5 % (0-2); Eosinophils Absolute Auto 0.5 X10*3/uL (0.0-0.4); Eosinophils Percent Auto 6.9 % (0-4); Hematocrit 33.2 % (42.0-52.0); Hemoglobin 10.7 g/dl (14.0-18.0); Imm Gran Abs Auto 0.02 X10*3/uL (0.00-0.03); Imm Gran Pct Auto 0.3 % (0.0-0.4); Lymphocytes Absolute Auto 1.7 X10*3/uL (1.2-4.9); Lymphocytes Percent Auto 22.2 % (20-40); Mean Corpuscular HGB Conc 32.2 g/dl (31.0-36.0); Mean Corpuscular Hemoglobin 28.6 pg (27.0-33.0); Mean Corpuscular Volume 88.8 fL (80.0-98.0); Mean Platelet Volume 10.6 fL (9.4-12.4); Monocytes Absolute Auto 0.7 X10*3/uL (0.1-1.2); Monocytes Percent Auto 8.4 % (2-11); Neutrophils Absolute Auto 4.8 x10*3/uL (2.0-8.3); Neutrophils Percent Auto 61.7 % (45-73); Platelet Count 367 X10*3/uL (160-400); Red Blood Count 3.74 X10*6/uL (4.60-5.80); Red Cell Distribution Width 13.6 % (11.0-16.0); White Blood Count 7.8 X10*3/uL (4.8-10.8)
== END 2021-05-29 15:13 | disposition home or self-care (01) ==
LOC: HO.HMGCLDS 15:12
PROVIDERS: Visit Provider Internal Medicine
DX: Z00.01 Encounter for general adult medical examination with abnormal findings (principal); I10 Essential (primary) hypertension; R73.03 Prediabetes; M10.9 Gout, unspecified; E66.01 Morbid (severe) obesity due to excess calories; G60.9 Hereditary and idiopathic neuropathy, unspecified; K52.9 Noninfective gastroenteritis and colitis, unspecified
CPT/HCPCS: 36415; 80053; 82728; 83036; 85025

== ENCOUNTER → 2021-05-31 10:19 | Outpatient (BNVA) | payer BC, SELFPAY | PROVIDERS: PCP Internal Medicine; Visit Provider Physician Assistant | DX: Z47.1 Aftercare following joint replacement surgery (principal); Z96.651 Presence of right artificial knee joint | CPT/HCPCS: 99212 ==

== ENCOUNTER 2021-06-17 | Outpatient (REF) | payer BC, SELFPAY ==
[2021-06-21 14:18] LABS: FIT1 NEGATIVE (NEGATIVE)
[2021-06-21 14:19] LABS: FIT Int Ctl YES; FIT2 NEGATIVE (NEGATIVE)
== END 2021-06-17 00:01 | disposition home or self-care (01) ==
LOC: HO.LNP
PROVIDERS: Visit Provider Internal Medicine
DX: D64.9 Anemia, unspecified (principal)
CPT/HCPCS: 82274

== ENCOUNTER 2021-06-22 13:00 | Outpatient (RCR) | payer BC, SELFPAY ==
--- NOTE | 2021-04-19 15:48 | MHC.PT.EP ---
[facility] [place] Office [place] [facility] [place] [facility] [address] Beatriz Peterson [address] [phone] F: [phone] F: [phone] F: [phone] F: [phone] Physical Therapy Plan of Care Date of Evaluation: Date of Surgery: 04/03/21 Diagnosis: S/P Rt TKR (LEFT nondisplaced vertical/oblique fracture of the distal fibula, (+) CAM BOOT) 03/10/21 Assessment: 65 YO MALE REF TO PT S/P Rt TKR 04/03/21- OF IMPORTANCE, Pt IS CURRENTLY IN A LEFT CAM BOOT FOR LEFT DISTAL FIBULAR FX 03/10/21- HE IS CURRENTLY AMB W A W/WALKER- Pt OOW SINCE 03/10/21 INJURY. OBJECTIVE FINDINGS: Rt KNEE ROM DEFICITS, TIGHT PSOAS PERLA, HEALING INCISION Rt ANT KNEE; WEAKNESS IN PROX LEs, AND PAIN IN Rt KNEE/ LEFT DISTAL LE. FUNCTIONALLY, Pt HAS DECR MONE TO PROLONGED POSITIONING, INCR WEIGHT BEARING MONE, INCR GAIT/ ALTERED GAIT MECH. Frequency and Duration: The patient will be seen 2 x WK x 5 WKS Short Term Goals: Pt DEMON PROPER , CONSISTENT Rt QUAD SET IN 1 WK Pt'S KNEE Rt PAIN DECREASED TO 2-3/10 W REG , CURRENT ADLs IN 2 WKS Pt DEMON WFL AROM HIP EXT AND ANKLE DF/PF AND AROM KNEE 0* TO 120* IN 3 WKS Pt DEMO IMPROVED GAIT MECH W LEAST RESTRICTIVE AD ON LEVEL GROUND AND STAIRS ( W RESPECT TO LEFT DISTAL FIB FX/ BOOT) IN 2 WKS Snf Goals: Pt INDEP W HEP PROGRESSION AND SELF-SX MGMT STRATEGIES IN 5 WKS Pt RESUME REG ADLs EVIDENT W IMPROVED LEFI SCORE BY 8-10 POINTS (AT EVAL 24/80 ) IN 5 WKS Pt INCR LE STRENGTH BY 1 GRADE IN 5 WKS Treatment Plan: Modalities to reduce pain, spasms and effusion. Manual therapy to restore motion and function. Therapeutic exercise to improve strength and flexibility. Neuromuscular re-education for posture and balance. Therapeutic activities to return to functional activities of daily living. Electronically signed by: Madonna Addison PT Please sign and return to therapist. Thank you for your referral.
--- NOTE | 2021-08-08 08:28 | MHC.PT.DC ---
[facility] [place] Office [place] Office [place] Office [address] Beatriz Peterson [address] [phone] F: [phone] F: [phone] F: [phone] F: [phone] Physical Therapy Discharge Report Diagnosis: S/P Rt TKR (LEFT nondisplaced vertical/oblique fracture of the distal fibula, (+) CAM BOOT) 03/10/21 Date of Surgery: 04/03/21 Date of Evaluation: 04/19/21 Date of Discharge: 08/08/21 Treatments to Date: 18 Cancellations to Date: 4 No Shows to Date: 0 Discharge Status: Patient Elected to Stop Discharge Summary: Pt had elected to stop PT due to financial reasons. At last session pt encouraged to continue with HEP as he continues to have a quite a bit of strength and endurance deficits. Chart kept open x 30 days in case anything came up. Pt has not reached out in >30 days and therefore will be d/c at this time. Electronically signed by: Shannon Mata, PT, DPT, ATC Please sign and return to therapist. Thank you for your referral.
== END 2021-08-08 08:28 | disposition home or self-care (01) ==
LOC: HO.PTCHIC 13:00
PROVIDERS: Visit Provider Physician Assistant
DX: Z96.651 Presence of right artificial knee joint (principal)
CPT/HCPCS: 97110; 97140; 97162; 97530

== ENCOUNTER 2021-07-02 07:19 | Outpatient (REF) | payer BC, SELFPAY ==
--- NOTE | ~2021-07-02 | XR_ITS ---
EXAMINATION: XR KNEES, STANDING AP XR KNEE, RIGHT CLINICAL INFORMATION: Knee pain COMPARISON: Standing AP knees and right knee radiographs 05/17/2021. TECHNIQUE: Standing AP view of both knees is performed. Lateral and axial patella views of the right knee are also obtained. FINDINGS: Right: Prior total knee arthroplasty. Hardware intact. No destructive process or osteolysis. No periostitis. Normal bony mineralization. There is moderate to large suprapatellar effusion again seen similar to prior exam. Axial view patella shows borderline lateralization. Left: No fracture or destructive process. No joint narrowing or erosive change. There is fine chondrocalcinosis medial meniscus again seen. XR/XR knee RT 2V IMPRESSION: Right: -Prior total knee arthroplasty. -Moderate effusion similar to prior study. -Borderline lateralization patella. Left: -Mild chondrocalcinosis medial meniscus. -No joint narrowing or erosive change.
--- NOTE | ~2021-07-02 | XR_ITS ---
EXAMINATION: XR KNEES, STANDING AP XR KNEE, RIGHT CLINICAL INFORMATION: Knee pain COMPARISON: Standing AP knees and right knee radiographs 05/17/2021. TECHNIQUE: Standing AP view of both knees is performed. Lateral and axial patella views of the right knee are also obtained. FINDINGS: Right: Prior total knee arthroplasty. Hardware intact. No destructive process or osteolysis. No periostitis. Normal bony mineralization. There is moderate to large suprapatellar effusion again seen similar to prior exam. Axial view patella shows borderline lateralization. Left: No fracture or destructive process. No joint narrowing or erosive change. There is fine chondrocalcinosis medial meniscus again seen. XR/XR knee standing BI IMPRESSION: Right: -Prior total knee arthroplasty. -Moderate effusion similar to prior study. -Borderline lateralization patella. Left: -Mild chondrocalcinosis medial meniscus. -No joint narrowing or erosive change.
== END 2021-07-02 07:20 | disposition home or self-care (01) ==
LOC: HO.HOSX 07:19
PROVIDERS: Visit Provider Orthopaedic Surgery
DX: Z47.1 Aftercare following joint replacement surgery (principal); Z96.651 Presence of right artificial knee joint
CPT/HCPCS: 73560; 73565

== ENCOUNTER 2021-07-18 10:41 | Outpatient (REF) | payer BC, SELFPAY ==
[2021-07-18 14:11] LABS: Alanine Aminotransferase 13 U/L (0-40); Albumin Level 3.7 g/dL (3.5-5.0); Alkaline Phosphatase 100 U/L (39-117); Anion Gap 15 (12-20); Aspartate Amino Transferase 12 U/L (5-37); Bilirubin Direct 0.5 mg/dL (0.0-0.5); Blood Urea Nitrogen 17 mg/dL (9-16); Calcium 10.1 mg/dL (8.4-10.2); Carbon Dioxide 23 mmol/L (22-29); Chloride 106 mmol/L (96-108); Cholesterol 71 mg/dL; Estimated Glomerular Filt Rate > 60; Glucose Random 104 mg/dL (60-115); HDL Cholesterol 26 mg/dL; LDL Cholesterol Calculated 29 mg/dl; Potassium 4.2 mmol/L (3.3-5.1); Sodium 140 mmol/L (135-145); Total Protein 6.7 g/dL (6.5-8.0); Triglycerides 80 mg/dL
== END 2021-07-18 10:42 | disposition home or self-care (01) ==
LOC: HO.HMGCLDS 10:41
PROVIDERS: Visit Provider Internal Medicine
DX: I77.810 Thoracic aortic ectasia (principal); I10 Essential (primary) hypertension
CPT/HCPCS: 36415; 80048; 80061; 80076

== ENCOUNTER 2021-07-23 09:50 | Outpatient (REF) | payer BC, SELFPAY ==
--- NOTE | ~2021-07-23 | CT_ITS ---
EXAMINATION: CT ANGIOGRAM CHEST CLINICAL INFORMATION: Thoracic aortic ectasia COMPARISON: CTA chest 04/30/2020. TECHNIQUE: Multiple axial images were obtained through the chest after the administration of 70 mL of Omnipaque 350 intravenous contrast. Extensive vascular post-processing including two-dimensional and three-dimensional reformatted images were created and reviewed on an independent workstation. This CT examination was performed using dose optimization techniques as appropriate, variously including the following: *Automated exposure control *Adjustment of mA and/or kV according to patient size (this includes techniques or standardized protocols for targeted exams where dose is matched to indication/reason for exam; i.e. extremities or head) *Use of iterative reconstruction technique DLP: 193 mGy-cm FINDINGS: The ascending aorta measures 4.7 x 4.7 cm without significant change from 04/30/2020 when it measured on the order of 5.0 cm (when it was limited by some motion artifact). The aortic arch and descending thoracic aorta are normal in caliber. Three-vessel aortic arch with mild atherosclerotic disease. The great vessels are patent. LAD, D1, CX, OM1, RCA coronary calcium. No mediastinal adenopathy or pericardial effusion. There are no suspicious lung nodules. The upper abdomen is unremarkable. Mild degenerative changes in the thoracic spine. CT/CT angio chest aorta IMPRESSION: Ascending aortic aneurysm measuring 4.7-4.7 cm without significant change from 04/30/2020.
[2021-07-23] MEDS: iohexoL 350 MG/ML 100 ML INFUS..BTL 70 ML IV (11:04)
== END 2021-07-23 09:51 | disposition home or self-care (01) ==
LOC: HO.CT 09:50
PROVIDERS: PCP Internal Medicine; Visit Provider Internal Medicine
DX: I77.810 Thoracic aortic ectasia (principal)
CPT/HCPCS: 71275; Q9967

== ENCOUNTER 2021-08-07 12:25 | Outpatient (REF) | payer BC, SELFPAY ==
--- NOTE | ~2021-08-07 | US_ITS ---
EXAMINATION: US VENOUS ULTRASOUND WITH DOPPLER LOWER EXTREMITY, RIGHT CLINICAL INFORMATION: Postop chest surgery, rule out deep venous thrombosis. COMPARISON: None TECHNIQUE: Ultrasound of the deep veins is performed from the hip to the calf with compression sonography and color and pulse Doppler assessment. Spectral analysis with color-flow imaging is performed. FINDINGS: There is normal venous compression and respiratory variation and augmented flow. The visualized common femoral vein, superficial femoral vein, profunda femoral vein, popliteal vein, and the trifurcation region shows no evidence of deep venous thrombosis. A reniform right inguinal lymph node measures 3.7 cm in long axis. A second lymph node measures 2.5 cm. Color Doppler showed no abnormal vascular flow. A right popliteal cyst measures 3.0 x 1.4 x 2.9 cm. Superficial subcutaneous edema versus dissected fluid is seen in the proximal calf extending approximately 12 cm. Color Doppler showed no abnormal vascular flow. If the patient's symptoms persist, followup ultrasound in 5 days 7 days might be of value to exclude proximal propagation from a non-visualized calf vein. US/US venous duplex LE RT IMPRESSION: 1. No evidence for deep venous thrombosis in the right lower extremity. 2. Right popliteal cyst. Possible subcutaneous edema versus dissected fluid in the proximal right calf. * If these findings persist or enlarge, short-term repeat targeted soft tissue ultrasound can be performed as clinically indicated to assess for change. 3. Right inguinal lymph nodes are mildly prominent, but not pathologically enlarged. These could be baseline for the patient or reactive. Correlate with physical exam.
== END 2021-08-07 12:26 | disposition home or self-care (01) ==
LOC: HO.HMGCX 12:25
PROVIDERS: Visit Provider Internal Medicine
DX: R60.0 Localized edema (principal); M79.89 Other specified soft tissue disorders
CPT/HCPCS: 93971

== ENCOUNTER → 2021-08-09 13:27 | Outpatient (BNVA) | payer BC, SELFPAY | PROVIDERS: PCP Internal Medicine; Visit Provider Orthopaedic Surgery | DX: Z13.89 Encounter for screening for other disorder (principal) ==

== ENCOUNTER → 2021-10-11 12:30 | Outpatient (BNVA) | payer BC, SELFPAY | PROVIDERS: PCP Internal Medicine; Visit Provider Internal Medicine | DX: I50.812 Chronic right heart failure (principal); I25.10 Atherosclerotic heart disease of native coronary artery without angina pectoris; I77.810 Thoracic aortic ectasia; I10 Essential (primary) hypertension; G47.33 Obstructive sleep apnea (adult) (pediatric) | CPT/HCPCS: 93005 ==

== ENCOUNTER 2022-03-01 10:13 | Outpatient (REF) | payer BC, SELFPAY ==
--- NOTE | ~2022-03-01 | XR_ITS ---
EXAMINATION: XR KNEES, STANDING AP BILATERAL XR KNEE, RIGHT CLINICAL INFORMATION: Knee pain COMPARISON: Standing AP knees and right knee radiographs 07/02/2021. TECHNIQUE: Bilateral standing AP view of the knees is performed. Additional lateral x3 and axial patella views of the right knee are also obtained. FINDINGS: Right: There is right knee arthroplasty. The hardware is intact. Subtle scalloped osteolysis is suggested focally at the medial side medial tibial plateau and lateral side lateral tibial plateau adjacent to the tibial prosthesis. There is also probable mild osteolysis posterior patella medial side. There is no acute fracture or dislocation. No periostitis. There is large suprapatellar effusion. There is prepatellar soft tissue swelling infrapatellar region. Axial view patella shows mild lateralization. Left: There is mild chondrocalcinosis medial meniscus. No joint narrowing or erosive change. XR/XR knee RT 2V IMPRESSION: Right: -Right knee arthroplasty. Hardware intact. -Subtle scalloped osteolysis adjacent to tibial prosthesis medial and lateral tibial plateau. -Subtle osteolysis posteromedial patella. Mild lateralization patella. -Large suprapatellar effusion and prepatellar soft tissue swelling. Left: -Mild chondrocalcinosis medial meniscus. No joint narrowing or erosive change.
--- NOTE | ~2022-03-01 | XR_ITS ---
EXAMINATION: XR KNEES, STANDING AP BILATERAL XR KNEE, RIGHT CLINICAL INFORMATION: Knee pain COMPARISON: Standing AP knees and right knee radiographs 07/02/2021. TECHNIQUE: Bilateral standing AP view of the knees is performed. Additional lateral x3 and axial patella views of the right knee are also obtained. FINDINGS: Right: There is right knee arthroplasty. The hardware is intact. Subtle scalloped osteolysis is suggested focally at the medial side medial tibial plateau and lateral side lateral tibial plateau adjacent to the tibial prosthesis. There is also probable mild osteolysis posterior patella medial side. There is no acute fracture or dislocation. No periostitis. There is large suprapatellar effusion. There is prepatellar soft tissue swelling infrapatellar region. Axial view patella shows mild lateralization. Left: There is mild chondrocalcinosis medial meniscus. No joint narrowing or erosive change. XR/XR knee standing BI IMPRESSION: Right: -Right knee arthroplasty. Hardware intact. -Subtle scalloped osteolysis adjacent to tibial prosthesis medial and lateral tibial plateau. -Subtle osteolysis posteromedial patella. Mild lateralization patella. -Large suprapatellar effusion and prepatellar soft tissue swelling. Left: -Mild chondrocalcinosis medial meniscus. No joint narrowing or erosive change.
== END 2022-03-01 10:14 | disposition home or self-care (01) ==
LOC: HO.HOSX 10:13
PROVIDERS: Visit Provider Orthopaedic Surgery
DX: M25.461 Effusion, right knee (principal)
CPT/HCPCS: 20610; 73560; 73565

== ENCOUNTER 2022-03-11 12:59 | Inpatient (IN) | payer BC, SELFPAY ==
--- NOTE | ~2022-03-11 | XR_ITS ---
EXAMINATION: XR chest 2V CLINICAL INFORMATION: Reason for Exam Cough congestion COMPARISON: Prior chest x-ray 06/09/2020 TECHNIQUE: XR chest 2V Lungs and Mariann: Both lungs are clear. Pleura: Normal. Costophrenic angles are sharp. No pneumothorax. Heart: Heart is enlarged. Mediastinum: Upper mediastinum is widened, this has not changed.. There is unfolding of the aorta chronic. Bones: Skeletal structures included are normal for patient's age. XR/XR chest 2V IMPRESSION: * No radiographic evidence of acute infiltrates or failure. * Cardiomegaly. * Widened upper mediastinum unchanged.
--- NOTE | ~2022-03-11 | CT_ITS ---
EXAMINATION: CT ANGIOGRAM HEAD CT ANGIOGRAM NECK CLINICAL INFORMATION: Confusion. Slurred speech. COMPARISON: CT head from 03/11/2022. TECHNIQUE: Initial noncontrast resident program specialist imaging of the head and neck was performed. Comparison is made with noncontrast head CT from earlier today. Test bolus sequences followed by intravenous administration 70 mL of Omnipaque 350. Helical imaging was performed in the axial plane from the aortic arch to the skull vertex. Delayed postcontrast imaging of the head was also performed. The data was processed at the time study technologist's workstation for generation of MIP sequences. Angled MIPs and volume rendered reformatted images were also generated at an offline 3D workstation. Stenoses are assessed in accordance with NASCET criteria unless otherwise indicated. This CT examination was performed using dose optimization techniques as appropriate, variously including the following: *Automated exposure control. *Adjustment of mA and/or kV according to patient size (this includes techniques or standardized protocols for targeted exams where dose is matched to indication/reason for exam; i.e. extremities or head). *Use of iterative reconstruction technique. DLP: 1543 mGy-cm FINDINGS: CT Head: There is no evidence of acute intracranial hemorrhage or edematous territorial infarction. Scattered and partially confluent hypoattenuation in the periventricular and deep white matter are consistent with moderate to extensive microangiopathy. Lacunar infarcts of the bilateral thalami. No additional loss of loving-white matter differentiation. Proportional prominence of the ventricles and sulcal spaces. No evidence for obstructive hydrocephalus. No abnormal mass effect or midline shift. No extra-axial fluid collections. No pathologic intra-axial enhancement or regional oligemia. No acute soft tissue or osseous abnormalities. Mild mucosal thickening of the paranasal sinuses. The mastoid air cells and middle ear cavities are clear. Bilateral lens extractions. Multifocal odontogenic enamel erosions. CT Neck: The thyroid gland and remaining cervical soft tissues are within normal limits. Straightening of the normal cervical lordosis. Advanced degenerative disc disease from C3-C7. Moderate degenerative disc disease at C7-T1. Facet and uncovertebral joint arthropathy leads to osseous encroachment on the neural foramina from C3-C7. CT Upper Chest: The visualized lung apices and upper mediastinum are within normal limits. Neck CTA: Aortic Arch: Normal contour and caliber with mild calcific atherosclerotic disease. Classic 3 vessel branching pattern of the aortic arch. Great Vessel Origins: No significant stenosis of the branch origins. Right Common Carotid Artery: No focal stenosis or occlusion. Cervical Right Internal Carotid Artery: Mild calcific atherosclerotic disease of the carotid bulb and proximal internal carotid artery without flow-limiting stenosis. Left Common Carotid Artery: No focal stenosis or occlusion. Retropharyngeal course of the left carotid artery. Cervical Left Internal Carotid Artery: Mild calcific atherosclerotic disease of the carotid bulb and proximal internal carotid artery without flow-limiting stenosis. Cervical Right Vertebral Artery: Calcific atherosclerotic disease causes mild stenosis of the origin. No additional focal stenosis or occlusion. Cervical Left Vertebral Artery: Dominant. No focal stenosis or occlusion. Brain CTA: Intracranial Internal Carotid Arteries: Calcific atherosclerotic disease of the intracranial internal carotid arteries without occlusion or flow-limiting stenosis. Right Anterior Cerebral Artery: Normal A1 segment. Normal opacification of the distal FARIBA segments. Left Anterior Cerebral Artery: Normal A1 segment. Normal opacification of the distal FARIBA segments. Anterior Communicating Artery: Normal. Right Middle Cerebral Artery: Normal M1 segment of the MCA without focal stenosis or occlusion. Normal arborization of the distal segments. Left Middle Cerebral Artery: Normal M1 segment of the MCA without focal stenosis or occlusion. Normal arborization of the distal segments. Right Vertebral Artery: Normal V4 segment. The posterior inferior cerebellar artery is not well opacified; however, there is no CT evidence of acute occlusion. Left Vertebral Artery: Normal V4 segment. Normal opacification of the proximal segments of the posterior inferior cerebellar artery. Basilar Artery: Normal without focal stenosis or occlusion. Normal appearance of the proximal superior cerebellar arteries. Right Posterior Cerebral Artery: Normal P1 segment. Normal opacification of the distal CREPE SOLE SCOURER segments. Left Posterior Cerebral Artery: Normal P1 segment. Normal opacification of the distal CREPE SOLE SCOURER segments. Normal opacification of the superior sagittal, straight, transverse, and sigmoid sinuses. CT/CT angio head neck IMPRESSION: 1. No evidence of acute intracranial hemorrhage or edematous territorial infarction. Moderate to extensive underlying microangiopathy and generalized cerebral volume loss. Lacunar infarcts of the deep nuclei. 2. CTA of the head and neck without proximal occlusion or flow-limiting stenosis.
--- NOTE | ~2022-03-11 | CT_ITS ---
EXAMINATION: CT head/brain wo IV con CLINICAL INFORMATION: Reason for Exam confusion COMPARISON: None. TECHNIQUE: Contiguous axial imaging was performed from the skull base to vertex without intravenous contrast. Sagittal and coronal reformatted images were obtained. This CT examination was performed using dose optimization techniques as appropriate, variously including the following: * Automated exposure control * Adjustment of mA and/or kV according to patient size (this includes techniques or standardized protocols for targeted exams where dose is matched to indication/reason for exam; i.e. extremities or head) Use of iterative reconstruction technique DLP: 760 mGy-cm FINDINGS: No acute osseous or soft tissue abnormality. The mastoid air cells and visualized portions of the paranasal sinuses are well aerated. There is no evidence of acute intracranial hemorrhage or territorial infarction. No abnormal mass effect or midline shift is seen. Heredia to white matter differentiation is well preserved. No extra-axial fluid collections are identified. No hydrocephalus. No significant volume loss. Patchy periventricular and deep white matter hypoattenuation is consistent with moderate small vessel ischemic changes. CT/CT head/brain wo IV con IMPRESSION: No acute intracranial abnormality including hemorrhage, mass effect, hydrocephalus, or acute territorial edematous infarction.
--- NOTE | ~2022-03-11 | MR_ITS ---
MRI OF THE BRAIN WITHOUT IV CONTRAST INDICATION: TIA symptoms. COMPARISON: Head CT and CTA head and neck 03/11/2022. TECHNIQUE: Multiplanar multisequence MR imaging of the brain was obtained without IV contrast. FINDINGS: The patient could not complete this study which is incomplete and limited. Accounting for artifact there are no definite acute infarcts on the diffusion series. There is global cerebral volume loss, there is advanced chronic microangiopathy, and there are chronic lacunar infarcts within the reza and supratentorial white matter. Punctate foci of chronic hemosiderin staining within the periphery of the left cerebral hemisphere. Major arterial flow voids are maintained. Mild mucosal thickening within the ethmoid air cells bilaterally. Mastoid air cells are clear. MR/MR head/brain wo con IMPRESSION: The patient could not complete this study which is incomplete and limited. Accounting for artifact there are no definite acute infarcts on the diffusion series. There is global cerebral volume loss, there is advanced chronic microangiopathy, and there are chronic lacunar infarcts within the reza and supratentorial white matter.
[2022-03-11 14:37] VITALS: BP 122/69; PULSE 60; RESP 18; TEMP 36.6; O2SAT 99; BMI 33.7
--- NOTE | 2022-03-11 14:37 | ED.GENADULT ---
HPI - General Adult General Chief complaint: Upper Respiratory Symptoms <RACHEAL Matthews - Last Filed: 03/11/22 14:42> Stated complaint: confused cough <RACHEAL Matthews - Last Filed: 03/11/22 14:42> Time Seen by Provider: 03/11/22 17:00 <RACHEAL Matthews - Last Filed: 03/11/22 14:42> Source: patient <Kassi Emery NP - Last Filed: 03/11/22 19:16> Mode of arrival: ambulatory <Kassi Emery NP - Last Filed: 03/11/22 19:16> Limitations: no limitations <Kassi Emery NP - Last Filed: 03/11/22 19:16> History of Present Illness HPI narrative: 66-year-old male with history of congestive heart failure, arthritis, GERD, hypertension, obesity who presents with complaints of 3 days of coughing congestion. Patient reports 3 days ago when his cough for started he took a dose of Del some and after taking this he had a episode of confusion which lasted 1-2 hours. Patient reports during this episode he had some slurred speech. He had no other symptoms during this episode and resolved without intervention. Patient reports this morning when he woke up he felt very confused and could not remember where he was. He also had some speech changes during this episode. He tells me he called his job to call out and was unable to clearly tell them what was going on. Patient reports after several minutes this episode resolved. Patient denies any associated weakness, numbness, tingling of the upper lower extremities during these episodes. He denies any associated vision changes, headache, dizziness during his episodes. Patient denies any chest pain or shortness of breath, weight gain, leg swelling or leg pain. Patient denies any history of TIA, CVA. Patient is not on any aspirin. <Kassi Emery NP - Last Filed: 03/11/22 19:16> Related Data Home medications: Home Medications Medication Instructions Recorded Confirmed dorzolamide 22.3 mg-timolol 6.8 1 drp ophthalmic (eye) BEDTIME 12/07/19 02/20/22 mg/mL eye drops latanoprost 0.005 % eye drops 1 drp ophthalmic (eye) BEDTIME 12/07/19 02/20/22 brimonidine 0.2 % eye drops 1 drp ophthalmic-Left BID 02/16/21 02/20/22 ascorbic acid (vitamin C) 500 mg 500 mg PO BID 04/03/21 02/20/22 chewable tablet (Vitamin C) diphenhydramine HCl 25 mg capsule 25 mg PO BEDTIME PRN Insomnia 04/03/21 02/20/22 (Benadryl) loperamide 2 mg tablet (Imodium 2 mg PO BID 04/03/21 02/20/22 A-D) multivitamin 1 tab PO DAILY 04/03/21 02/20/22 Previous Rx's Medication Instructions Recorded furosemide 20 mg tablet (Lasix) 20 mg PO DAILY #90 tabs 04/05/21 atorvastatin 40 mg tablet 40 mg PO BEDTIME 90 days #90 tabs 08/08/21 teds hose #2 ea 09/11/21 pantoprazole 40 mg tablet,delayed 40 mg PO DAILY 30 days #30 tabs 10/17/21 release gabapentin 300 mg capsule 300 mg PO BEDTIME 30 days #90 caps 11/22/21 allopurinol 300 mg tablet 300 mg PO DAILY #90 tabs 12/26/21 nifedipine 90 mg tablet,extended 90 mg PO DAILY #90 tabs 12/26/21 release 24 hr metoprolol succinate 200 mg 200 mg PO DAILY #90 tabs 01/17/22 tablet,extended release 24 hr indomethacin 50 mg capsule 50 mg PO TID PRN pain 30 days #60 02/15/22 caps <RACHEAL Matthews - Last Filed: 03/11/22 14:42> Allergies/adverse reactions: Allergies Allergy/AdvReac Type Severity Reaction Status Date / Time lisinopril [LISINOPRIL] Allergy Mild TONGUE Verified 03/01/22 10:43 SWELLING, CONFUSION <RACHEAL Matthews - Last Filed: 03/11/22 14:42> Review of Systems Review of Systems: Yes all other systems are reviewed and are negative <Kassi Emery NP - Last Filed: 03/11/22 19:16> Constitutional: Constitutional: Reports no additional constitutional complaints, Denies body ache(s), Denies chills, Denies fever(s), Denies headache(s) and Denies weakness <Kassi Emery NP - Last Filed: 03/11/22 19:16> Eyes: Eyes: Reports no additional eye complaints and Denies change in vision <Kassi Emery [employer] - Last Filed: 03/11/22 19:16> ENT: Reports system reviewed and no additional complaints, except as documented, Denies dizziness, Denies headache(s), Reports nasal congestion, Denies nasal discharge and Denies neck pain <Kassi Emery [employer] - Last Filed: 03/11/22 19:16> Cardiovascular: Cardiovascular: Reports no additional cardiovascular complaints, Denies chest pain, Denies leg edema and Denies dyspnea <Kassi Emery [employer] - Last Filed: 03/11/22 19:16> Respiratory: Respiratory: Reports no additional respiratory complaints, Reports cough and Denies dyspnea <Kassi Emery [employer] - Last Filed: 03/11/22 19:16> Gastrointestinal: Gastrointestinal: Reports no additional gastrointestinal complaints, Denies abdominal pain, Denies diarrhea, Denies nausea and Denies vomiting <Kassi Emery [employer] - Last Filed: 03/11/22 19:16> Genitourinary: Genitourinary: Denies urinary incontinence <Kassi Emery [employer] - Last Filed: 03/11/22 19:16> Musculoskeletal: Musculoskeletal: Reports no additional musculoskeletal complaints, Denies back pain, Denies arthralgias, Denies joint swelling, Denies neck pain, Denies numbness and Denies tingling <Kassi Emery [employer] - Last Filed: 03/11/22 19:16> Integumentary/Breasts: Skin/Breast: Reports system reviewed and no additional complaints, except as docu and Denies rash <Kassi Emery NP - Last Filed: 03/11/22 19:16> Neurologic: Reports system reviewed and no additional complaints, except as documented, Denies Abnormal speech present, Denies dizziness, Denies headache(s), Denies numbness, Denies tingling and Denies weakness <Kassi Emery [employer] - Last Filed: 03/11/22 19:16> PMF Past Medical History Attestation statement: The following information was validated with the patient. <Kassi Emery NP - Last Filed: 03/11/22 19:16> Source: old records reviewed and nursing notes reviewed <Kassi Emery NP - Last Filed: 03/11/22 19:16> Medical History: Medical History Arthritis Ascending aorta dilation Back pain Chronic diarrhea Chronic heart failure with preserved ejection fraction (HFpEF) Chronic right heart failure Diarrhea Esophageal varices Essential hypertension GERD (gastroesophageal reflux disease) Gout Hiatal hernia History of alcoholism History of esophageal varices History of GI bleed History of Znuze-Byjrpxcpr-Lbcol (WPW) syndrome HTN (hypertension) Idiopathic peripheral neuropathy Lumbar spondylosis Morbid obesity Nocturnal hypoxemia Obesity (BMI 30-39.9) Obesity (BMI 30-39.9) VY (obstructive sleep apnea) VY (obstructive sleep apnea) Pre-diabetes Shoulder injury <RACHEAL Matthews - Last Filed: 03/11/22 14:42> Surgical History: Surgical History H/O cardiac radiofrequency ablation History of colonoscopy History of esophagogastroduodenoscopy (EGD) <RACHEAL Matthews - Last Filed: 03/11/22 14:42> Family History Family History: Family History Father Diabetes mellitus <RACHEAL Matthews - Last Filed: 03/11/22 14:42> Social History Social History: Social History Household Members: Other Household Members Other:: girlfriend and a brother Housing: House Are you a primary rn home care to a significant other at home: No Do you presently have visiting nurse or other home services: No Alcohol intake: former Year quit: 1998 Patient Tobacco Use Status: Never used Tobacco e-Cigarette/Vaping Use: Never Used Second Hand Smoke Exposure: No Advance Directives: Yes Advance Directives on File: Yes Advance Directives Date on File: 05/03/20 service: No Current occupational status: employed 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 Cognitive needs: No Hearing needs: No Vision needs: No <RACHEAL Matthews - Last Filed: 03/11/22 14:42> Physical Exam ED Vital Signs: Vital Signs - 24 hr 03/11/22 14:37 Temperature 98 F Pulse Rate 60 Respiratory Rate 18 Blood Pressure 122/69 Pulse Oximetry 99 Oxygen Delivery Method Room Air BMI result Body Mass Index 33.7 <RACHEAL Matthews - Last Filed: 03/11/22 14:42> Vital Signs - 24 hr 03/11/22 14:37 Temperature 98 F Pulse Rate 60 Respiratory Rate 18 Blood Pressure 122/69 Pulse Oximetry 99 Oxygen Delivery Method Room Air BMI result Body Mass Index 33.7 <Kassi Emery NP - Last Filed: 03/11/22 19:16> Const General: cooperative, healthy appearing, comfortable and no acute distress <Kassi Emery NP - Last Filed: 03/11/22 19:16> Orientation/consciousness: patient oriented x3 <Kassi Emery NP - Last Filed: 03/11/22 19:16> Limitations: no limitations <Kassi Emery NP - Last Filed: 03/11/22 19:16> HENMT Head: Yes normal to inspection <Kassi Emery NP - Last Filed: 03/11/22 19:16> Ears: hearing grossly normal bilaterally and TM's normal bilaterally <Kassi Emery NP - Last Filed: 03/11/22 19:16> General nose exam: Normal external nose present <Kassi Emery NP - Last Filed: 03/11/22 19:16> Face and sinus: Yes normal facial exam <Kassi Emery NP - Last Filed: 03/11/22 19:16> Throat: Yes posterior oropharynx normal, Yes tonsils normal and Yes uvula midline <Kassi Emery NP - Last Filed: 03/11/22 19:16> Eyes General: appearance normal, both eyes and all related structures <Kassi Emery NP - Last Filed: 03/11/22 19:16> Pupils: Equal, round and reactive pupils present <Kassi Emery NP - Last Filed: 03/11/22 19:16> Neck Neck: Yes normal visual inspection, Yes full ROM, Yes no lymphadenopathy and Yes no meningeal signs <Kassi Emery NP - Last Filed: 03/11/22 19:16> Chest Chest palpation & inspection: normal inspection of the chest <Kassi Emery NP - Last Filed: 03/11/22 19:16> Resp Effort & Inspection: normal respiratory effort <Kassi Emery NP - Last Filed: 03/11/22 19:16> Auscultation: clear to auscultation bilaterally <Kassi Emery NP - Last Filed: 03/11/22 19:16> Cardio Rate: regular rate <Kassi Emery NP - Last Filed: 03/11/22 19:16> Rhythm: regular rhythm <Kassi Emery NP - Last Filed: 03/11/22 19:16> Peripheral pulses: Peripheral pulses 2+ throughout <Kassi Emery NP - Last Filed: 03/11/22 19:16> GI Inspection: Yes normal to inspection <Kassi Emery NP - Last Filed: 03/11/22 19:16> Palpation (GI): Soft to palpation and nontender <Kassi Emery NP - Last Filed: 03/11/22 19:16> General: Yes no CVA tenderness <Kassi Emery NP - Last Filed: 03/11/22 19:16> Back/Spine/Pelvis Back: no CVA tenderness <Kassi Emery NP - Last Filed: 03/11/22 19:16> Thoracic/Lumbar Spine: thoracic and lumbar spine normal to inspection <Kassi Emery NP - Last Filed: 03/11/22 19:16> Skin General skin exam: no rashes or lesions noted <Kassi Emery NP - Last Filed: 03/11/22 19:16> Neuro General: patient oriented x3, moves all extremities and no meningeal signs <Kassi Emery NP - Last Filed: 03/11/22 19:16> Cranial nerves: Yes CN's II-XII intact bilaterally, Yes Equal, round and reactive pupils present, Yes Bilaterally intact EOM present, Yes Nystagmus not present, Yes Normal facial strength present and Yes Midline tongue present <Kassi Emery NP - Last Filed: 03/11/22 19:16> Cognition (Neuro): normal cognition <Kassi Emery NP - Last Filed: 03/11/22 19:16> Speech: No Abnormal speech present <Kassi Emery NP - Last Filed: 03/11/22 19:16> Gait exam (Neuro): Normal gait present <Kassi Emery NP - Last Filed: 03/11/22 19:16> Motor exam (neuro): 5/5 motor strength present throughout <Kassi Emery NP - Last Filed: 03/11/22 19:16> Sensory Exam: Normal double simultaneous stimulation for sensation <Kassi Emery NP - Last Filed: 03/11/22 19:16> Coordination: [id number] test normal and tandem gait normal <Kassi Emery NP - Last Filed: 03/11/22 19:16> Extrem General: Yes normal to inspection, Yes no pedal edema and Yes no calf tenderness <Kassi Emery NP - Last Filed: 03/11/22 19:16> NIH Stroke Scale Internal: Initial- Upon Arrival <VIGNESH Leonard Last Filed: 03/11/22 19:16> Level of Consciousness: Alert <Kassi Emery NP - Last Filed: 03/11/22 19:16> Level of Consciousness Questions: Answers both questions correctly <Kassi Emery NP - Last Filed: 03/11/22 19:16> Level of Consciousness Commands: Performs both tasks correctly <Kassi Emery NP - Last Filed: 03/11/22 19:16> Best Gaze: Normal <Kassi Emery NP - Last Filed: 03/11/22 19:16> Visual: No visual loss <Kassi Emery NP - Last Filed: 03/11/22 19:16> Facial Palsy: Normal <Kassi Emery NP - Last Filed: 03/11/22 19:16> Motor Arm (Right): No drift <Kassi Emery NP - Last Filed: 03/11/22 19:16> Motor Arm (Left): No drift <Kassi Emery NP - Last Filed: 03/11/22 19:16> Motor Leg (Right): No drift <Kassi Emery NP - Last Filed: 03/11/22 19:16> Motor Leg (Left): No drift <Kassi Emery NP - Last Filed: 03/11/22 19:16> Limb Ataxia: Absent <Kassi Emery NP - Last Filed: 03/11/22 19:16> Sensory: Normal <Kassi Emery NP - Last Filed: 03/11/22 19:16> Best Language: No aphasia <Kassi Emery NP - Last Filed: 03/11/22 19:16> Dysarthia: Normal <Kassi Emery NP - Last Filed: 03/11/22 19:16> Extinction and Inattention: No abnormality <Kassi Emery NP - Last Filed: 03/11/22 19:16> Score: 0 <Kassi Emery NP - Last Filed: 03/11/22 19:16> Course Course Course Narrative: SHE-14:37PM - 66yoM c PMHx of lightheadedness that started this morning with associated confusion where he did not know where he was, denies fatigue/malaise, chills, cough/ chest congestion x 2-3 days worse today. Able to read his book he has and able to understand it. Negative home covid-19 today. Denies fevers, changes in vision, focal weakness, CP/SOB, abd pain or any other symptoms complaints or concerns. On exam patient is stable. Alert and oriented x3. Not in any acute distress. Normal steady gait. No neuro deficits noted. Plan: Patient stable to go back to the waiting room to be evaluated in [facility] [place]. <RACHEAL Matthews - Last Filed: 03/11/22 14:42> Reevaluation(s) Reevaluation #1: Labs show microcytic anemia. Patient with history of the same. Patient with no active bleeding. Additional labs are unremarkable. Testing for flu, COVID, RSV are negative. EKG shows no ischemic changes. Chest x-ray negative for any pneumonia. Patient does have a mildly widened mediastinum and cardiomegaly which is unchanged from previous chest x-ray. Patient has a known ascending aortic dilation. CT head negative for any acute finding. Symptoms are consistent with TIA. URI symptoms likely secondary to viral syndrome. Spoke to attending physician (Dr morel) who recommended admission for further workup <Kassi Emery NP - Last Filed: 03/11/22 19:16> Medical Decision Making Medical Decision Making MDM Narrative: This is a 66-year-old male who presents with complaints of cough and congestion for several days with no associated shortness of breath, chest pain, fever, leg swelling or leg pain or weight gain. Incidentally patient reports 2 episodes arm the last 3 days of confusion which she describes as lasting minutes to an hour long with associated slurred speech. The symptoms to resolve without intervention. The patient on arrival is neuro intact with no focal deficit. His vitals are stable. His lungs are clear. Will obtain testing for flu, COVID, RSV, obtain chest x-ray, CT head, EKG and labs <Kassi Emery NP - Last Filed: 03/11/22 19:16> Differential Diagnosis Differential Diagnoses: The differential diagnosis associated with the presentation includes <VIGNESH Leonard Last Filed: 03/11/22 19:16> Viral syndrome, influenza. Low concern for PE, pneumonia, ACS, CHF TIA <Kassi Emery NP - Last Filed: 03/11/22 19:16> Admission/Observation Consideration of admission/observation: Escalation of care including admission/observation considered <VIGNESH Leonard Last Filed: 03/11/22 19:16> Patient with what sounds like 2 episodes of TIA in the last 3 days with no previous history of TIA with no previous TIA workup in the past. Consider admission for further workup <VIGNESH Leonard Last Filed: 03/11/22 19:16> Consult Healthcare Provider Management of the patient was discussed with: Hospitalist <Kassi Emery NP - Last Filed: 03/11/22 19:16> Spoke to Dr. Nguyen or who accepted admission for TIA workup. Requesting CTA head and neck angio. She will follow these results <Kassi Emery NP - Last Filed: 03/11/22 19:16> Lab Data MDM Lab Attestation statement: I reviewed the patient's lab results. <Kassi Emery NP - Last Filed: 03/11/22 19:16> Result Diagrams: : 03/11/22 18:30 03/11/22 18:30 <RACHEAL Matthews - Last Filed: 03/11/22 14:42> Labs: Lab Results 03/11/22 03/11/22 03/11/22 Range/Units 14:51 18:30 18:30 WBC 6.2 (4.8-10.8) X10*3/uL RBC 3.56 L (4.60-5.80) X10*6/uL Hgb 9.0 L (14.0-18.0) g/dl Hct 28.8 L (42.0-52.0) % MCV 80.9 (80.0-98.0) fL MCH 25.3 L (27.0-33.0) pg MCHC 31.3 (31.0-36.0) g/dl RDW 14.2 (11.0-16.0) % Plt Count 346 (160-400) X10*3/uL MPV 9.5 (9.4-12.4) fL Immature Gran % (Auto) 0.2 (0.0-0.4) % Neut % (Auto) 58.2 (45-73) % Lymph % (Auto) 23.5 (20-40) % Nance % (Auto) 12.1 H (2-11) % Eos % (Auto) 5.5 H (0-4) % Baso % (Auto) 0.5 (0-2) % Lymph # (Auto) 1.5 (1.2-4.9) X10*3/uL Nance # (Auto) 0.8 (0.1-1.2) X10*3/uL Eos # (Auto) 0.3 (0.0-0.4) X10*3/uL Baso # (Auto) 0.0 (0.0-0.2) X10*3/uL Abs Immat Gran (auto) 0.01 (0.00-0.03) X10*3/uL Absolute Neuts (auto) 3.6 (2.0-8.3) x10*3/uL Absolute Nucleated RBC 0.000 (0.0-0.012) X10*3/uL Nucleated RBC % (auto) 0.0 (0.0-0.2) /100WBC Sodium 143 (135-145) mmol/L Potassium 4.3 (3.3-5.1) mmol/L Chloride 108 (96-108) mmol/L Carbon Dioxide 29 (22-29) mmol/L Anion Gap 10 L (12-20) BUN 22 H (9-16) mg/dL Creatinine 0.97 (0.5-1.4) mg/dL Estim Creat Clear Calc 91.5 Estimated GFR > 60 Random Glucose 72 (60-115) mg/dL Calcium 9.4 D (8.4-10.2) mg/dL Magnesium 1.9 (1.6-2.6) mg/dL Total Bilirubin 0.3 (0.0-1.0) mg/dL Direct Bilirubin < 0.2 (0.0-0.5) mg/dL AST 12 (5-37) U/L ALT 13 (0-40) U/L Alkaline Phosphatase 85 (39-117) U/L Troponin I High Sens (<3.5-35.0) ng/L Total Protein 6.4 L (6.5-8.0) g/dL Albumin 3.5 (3.5-5.0) g/dL Influenza Type A (PCR) NEGATIVE (Negative) Influenza Type B (PCR) NEGATIVE (Negative) RSV RNA Qual (PCR) NEGATIVE (Negative) SARS-CoV-2 RNA (RT-PCR) NEGATIVE (Negative) 03/11/22 Range/Units 18:30 WBC (4.8-10.8) X10*3/uL RBC (4.60-5.80) X10*6/uL Hgb (14.0-18.0) g/dl Hct (42.0-52.0) % MCV (80.0-98.0) fL MCH (27.0-33.0) pg MCHC (31.0-36.0) g/dl RDW (11.0-16.0) % Plt Count (160-400) X10*3/uL MPV (9.4-12.4) fL Immature Gran % (Auto) (0.0-0.4) % Neut % (Auto) (45-73) % Lymph % (Auto) (20-40) % Nance % (Auto) (2-11) % Eos % (Auto) (0-4) % Baso % (Auto) (0-2) % Lymph # (Auto) (1.2-4.9) X10*3/uL Nance # (Auto) (0.1-1.2) X10*3/uL Eos # (Auto) (0.0-0.4) X10*3/uL Baso # (Auto) (0.0-0.2) X10*3/uL Abs Immat Gran (auto) (0.00-0.03) X10*3/uL Absolute Neuts (auto) (2.0-8.3) x10*3/uL Absolute Nucleated RBC (0.0-0.012) X10*3/uL Nucleated RBC % (auto) (0.0-0.2) /100WBC Sodium (135-145) mmol/L Potassium (3.3-5.1) mmol/L Chloride (96-108) mmol/L Carbon Dioxide (22-29) mmol/L Anion Gap (12-20) BUN (9-16) mg/dL Creatinine (0.5-1.4) mg/dL Estim Creat Clear Calc Estimated GFR Random Glucose (60-115) mg/dL Calcium (8.4-10.2) mg/dL Magnesium (1.6-2.6) mg/dL Total Bilirubin (0.0-1.0) mg/dL Direct Bilirubin (0.0-0.5) mg/dL AST (5-37) U/L ALT (0-40) U/L Alkaline Phosphatase (39-117) U/L Troponin I High Sens 3.8 (<3.5-35.0) ng/L Total Protein (6.5-8.0) g/dL Albumin (3.5-5.0) g/dL Influenza Type A (PCR) (Negative) Influenza Type B (PCR) (Negative) RSV RNA Qual (PCR) (Negative) SARS-CoV-2 RNA (RT-PCR) (Negative) <RACHEAL Matthews - Last Filed: 03/11/22 14:42> Lab Results 03/11/22 03/11/22 03/11/22 Range/Units 14:51 18:30 18:30 WBC 6.2 (4.8-10.8) X10*3/uL RBC 3.56 L (4.60-5.80) X10*6/uL Hgb 9.0 L (14.0-18.0) g/dl Hct 28.8 L (42.0-52.0) % MCV 80.9 (80.0-98.0) fL MCH 25.3 L (27.0-33.0) pg MCHC 31.3 (31.0-36.0) g/dl RDW 14.2 (11.0-16.0) % Plt Count 346 (160-400) X10*3/uL MPV 9.5 (9.4-12.4) fL Immature Gran % (Auto) 0.2 (0.0-0.4) % Neut % (Auto) 58.2 (45-73) % Lymph % (Auto) 23.5 (20-40) % Nance % (Auto) 12.1 H (2-11) % Eos % (Auto) 5.5 H (0-4) % Baso % (Auto) 0.5 (0-2) % Lymph # (Auto) 1.5 (1.2-4.9) X10*3/uL Nance # (Auto) 0.8 (0.1-1.2) X10*3/uL Eos # (Auto) 0.3 (0.0-0.4) X10*3/uL Baso # (Auto) 0.0 (0.0-0.2) X10*3/uL Abs Immat Gran (auto) 0.01 (0.00-0.03) X10*3/uL Absolute Neuts (auto) 3.6 (2.0-8.3) x10*3/uL Absolute Nucleated RBC 0.000 (0.0-0.012) X10*3/uL Nucleated RBC % (auto) 0.0 (0.0-0.2) /100WBC Sodium 143 (135-145) mmol/L Potassium 4.3 (3.3-5.1) mmol/L Chloride 108 (96-108) mmol/L Carbon Dioxide 29 (22-29) mmol/L Anion Gap 10 L (12-20) BUN 22 H (9-16) mg/dL Creatinine 0.97 (0.5-1.4) mg/dL Estim Creat Clear Calc 91.5 Estimated GFR > 60 Random Glucose 72 (60-115) mg/dL Calcium 9.4 D (8.4-10.2) mg/dL Magnesium 1.9 (1.6-2.6) mg/dL Total Bilirubin 0.3 (0.0-1.0) mg/dL Direct Bilirubin < 0.2 (0.0-0.5) mg/dL AST 12 (5-37) U/L ALT 13 (0-40) U/L Alkaline Phosphatase 85 (39-117) U/L Troponin I High Sens (<3.5-35.0) ng/L Total Protein 6.4 L (6.5-8.0) g/dL Albumin 3.5 (3.5-5.0) g/dL Influenza Type A (PCR) NEGATIVE (Negative) Influenza Type B (PCR) NEGATIVE (Negative) RSV RNA Qual (PCR) NEGATIVE (Negative) SARS-CoV-2 RNA (RT-PCR) NEGATIVE (Negative) 03/11/22 Range/Units 18:30 WBC (4.8-10.8) X10*3/uL RBC (4.60-5.80) X10*6/uL Hgb (14.0-18.0) g/dl Hct (42.0-52.0) % MCV (80.0-98.0) fL MCH (27.0-33.0) pg MCHC (31.0-36.0) g/dl RDW (11.0-16.0) % Plt Count (160-400) X10*3/uL MPV (9.4-12.4) fL Immature Gran % (Auto) (0.0-0.4) % Neut % (Auto) (45-73) % Lymph % (Auto) (20-40) % Nance % (Auto) (2-11) % Eos % (Auto) (0-4) % Baso % (Auto) (0-2) % Lymph # (Auto) (1.2-4.9) X10*3/uL Nance # (Auto) (0.1-1.2) X10*3/uL Eos # (Auto) (0.0-0.4) X10*3/uL Baso # (Auto) (0.0-0.2) X10*3/uL Abs Immat Gran (auto) (0.00-0.03) X10*3/uL Absolute Neuts (auto) (2.0-8.3) x10*3/uL Absolute Nucleated RBC (0.0-0.012) X10*3/uL Nucleated RBC % (auto) (0.0-0.2) /100WBC Sodium (135-145) mmol/L Potassium (3.3-5.1) mmol/L Chloride (96-108) mmol/L Carbon Dioxide (22-29) mmol/L Anion Gap (12-20) BUN (9-16) mg/dL Creatinine (0.5-1.4) mg/dL Estim Creat Clear Calc Estimated GFR Random Glucose (60-115) mg/dL Calcium (8.4-10.2) mg/dL Magnesium (1.6-2.6) mg/dL Total Bilirubin (0.0-1.0) mg/dL Direct Bilirubin (0.0-0.5) mg/dL AST (5-37) U/L ALT (0-40) U/L Alkaline Phosphatase (39-117) U/L Troponin I High Sens 3.8 (<3.5-35.0) ng/L Total Protein (6.5-8.0) g/dL Albumin (3.5-5.0) g/dL Influenza Type A (PCR) (Negative) Influenza Type B (PCR) (Negative) RSV RNA Qual (PCR) (Negative) SARS-CoV-2 RNA (RT-PCR) (Negative) <Kassi Emery NP - Last Filed: 03/11/22 19:16> Independent Interpretation I performed an independent interpretation of an: EKG, Plain X-Ray (I independently reviewed the x-ray which shows no pneumonia) and CT Scan (I independently reviewed the CT scan which shows no acute intracranial hemorrhage, infarct) <Kassi Emery NP - Last Filed: 03/11/22 19:16> Interpretation: Normal sinus rhythm with a rate of 61, normal MT, normal QRS, normal QT <Kassi Emery NP - Last Filed: 03/11/22 19:16> Radiology Impression Discussion of test interpretation with radiology: I have reviewed the radiologist's reading. <Kassi Emery NP - Last Filed: 03/11/22 19:16> Radiologist Impression: CLINICAL INFORMATION: Reason for Exam Cough congestion COMPARISON: Prior chest x-ray 06/09/2020? TECHNIQUE: XR chest 2V Lungs and Mariann: Both lungs are clear. Pleura: Normal. Costophrenic angles are sharp. No pneumothorax. Heart: Heart is enlarged. Mediastinum: Upper mediastinum is widened, this has not changed.. There is unfolding of the aorta chronic. Bones: Skeletal structures included are normal for patient's age. XR/XR chest 2V IMPRESSION: ? *? No radiographic evidence of acute infiltrates or failure. ? *? Cardiomegaly. ? *? Widened upper mediastinum unchanged. ? [address] [address] [address] Scan Report Signed Patient: Alek Vasquez MR#: [id number] : 1955 Acct:[id number] Age/Sex: 66 / M ADM Date: 03/11/22 Loc: HO.ED Attending Dr: Ordering Physician: Kassi Emery NP Date of Service: 03/11/22 Procedure(s): CT head/brain wo IV con Accession Number(s): [id number] cc: Kassi Emery NP~ EXAMINATION: ?CT head/brain wo IV con CLINICAL INFORMATION: Reason for Exam confusion COMPARISON: None. TECHNIQUE: Contiguous axial imaging was performed from the skull base to vertex without intravenous contrast. Sagittal and coronal reformatted images were obtained. This CT examination was performed using dose optimization techniques as appropriate, variously including the following: *? Automated exposure control *? Adjustment of mA and/or kV according to patient size (this includes techniques or standardized protocols for targeted exams where dose is matched to indication/reason for exam; i.e. extremities or head) Use of iterative reconstruction technique DLP: 760? mGy-cm FINDINGS: No acute osseous or soft tissue abnormality. The mastoid air cells and visualized portions of the paranasal sinuses are well aerated. There is no evidence of acute intracranial hemorrhage or territorial infarction. No abnormal mass effect or midline shift is seen. Heredia to white matter differentiation is well preserved. No extra-axial fluid collections are identified. No hydrocephalus. No significant volume loss. Patchy periventricular and deep white matter hypoattenuation is consistent with moderate small vessel ischemic changes. ? CT/CT head/brain wo IV con IMPRESSION: ? No acute intracranial abnormality including hemorrhage, mass effect, hydrocephalus, or acute territorial edematous infarction. <Kassi Emery NP - Last Filed: 03/11/22 19:16> Discharge Plan Discharge Clinical Impression: Viral infection, TIA (transient ischemic attack) <RACHEAL Matthews - Last Filed: 03/11/22 14:42> Patient Disposition: Admitted As Inpatient <RACHEAL Matthews - Last Filed: 03/11/22 14:42>
[2022-03-11 15:39] LABS: Influenza A PCR NEGATIVE (Negative); Influenza B PCR NEGATIVE (Negative); Resp Syncy Virus RNA Qual PCR NEGATIVE (Negative); SARS COV2 PCR INHOUSE NEGATIVE (Negative)
--- NOTE | 2022-03-11 17:47 | ECG_ITS ---
Test Reason : CONFUSION Blood Pressure : / mmHG Vent. Rate : 061 BPM Atrial Rate : 061 BPM P-R Int : 168 ms QRS Dur : 100 ms QT Int : 412 ms P-R-T Axes : 004 -38 -04 degrees QTc Int : 414 ms Normal sinus rhythm Left axis deviation Minimal voltage criteria for LVH, may be normal variant ( R in aVL ) Abnormal ECG When compared with ECG of 28-FEB-2021 13:17, No significant change was found Referred By: Kassi Emery Electronically Signed By:JONAH CORONA
[2022-03-11 18:36] LABS: MANUAL DIFF FLAG NO
[2022-03-11 18:40] LABS: Basophils Percent Auto 0.5 % (0-2); Eosinophils Absolute Auto 0.3 X10*3/uL (0.0-0.4); Eosinophils Percent Auto 5.5 % (0-4); Hematocrit 28.8 % (42.0-52.0); Imm Gran Abs Auto 0.01 X10*3/uL (0.00-0.03); Imm Gran Pct Auto 0.2 % (0.0-0.4); Lymphocytes Absolute Auto 1.5 X10*3/uL (1.2-4.9); Lymphocytes Percent Auto 23.5 % (20-40); Mean Corpuscular HGB Conc 31.3 g/dl (31.0-36.0); Mean Corpuscular Hemoglobin 25.3 pg (27.0-33.0); Mean Corpuscular Volume 80.9 fL (80.0-98.0); Mean Platelet Volume 9.5 fL (9.4-12.4); Monocytes Absolute Auto 0.8 X10*3/uL (0.1-1.2); Monocytes Percent Auto 12.1 % (2-11); Neutrophils Absolute Auto 3.6 x10*3/uL (2.0-8.3); Neutrophils Percent Auto 58.2 % (45-73); Platelet Count 346 X10*3/uL (160-400); Red Blood Count 3.56 X10*6/uL (4.60-5.80); Red Cell Distribution Width 14.2 % (11.0-16.0); White Blood Count 6.2 X10*3/uL (4.8-10.8)
[2022-03-11 18:54] LABS: Alanine Aminotransferase 13 U/L (0-40); Albumin Level 3.5 g/dL (3.5-5.0); Alkaline Phosphatase 85 U/L (39-117); Anion Gap 10 (12-20); Aspartate Amino Transferase 12 U/L (5-37); Bilirubin Direct < 0.2 mg/dL (0.0-0.5); Bilirubin Total 0.3 mg/dL (0.0-1.0); Blood Urea Nitrogen 22 mg/dL (9-16); Calcium 9.4 mg/dL (8.4-10.2); Carbon Dioxide 29 mmol/L (22-29); Chloride 108 mmol/L (96-108); Creatinine Clr Calc Pharmacy 91.5; Estimated Glomerular Filt Rate > 60; Glucose Random 72 mg/dL (60-115); Magnesium 1.9 mg/dL (1.6-2.6); Potassium 4.3 mmol/L (3.3-5.1); Sodium 143 mmol/L (135-145); Total Protein 6.4 g/dL (6.5-8.0)
[2022-03-11 19:00] LABS: Troponin-I High Sensitivity 3.8 ng/L (<3.5-35.0)
[2022-03-11 19:26] VITALS: BP 134/63; PULSE 68; RESP 14; TEMP 36.7; O2SAT 96
[2022-03-11 19:29] LABS: B Type Natriuretic Peptide 98 pg/mL (<100)
--- NOTE | 2022-03-11 19:39 | PHA.MEDREC ---
Pharmacy Consult ? Medication Reconciliation Pharmacy has completed the medication reconciliation.
[2022-03-11] MEDS: iohexoL 350 MG/ML 100 ML INFUS..BTL IV (20:51)
--- NOTE | 2022-03-11 21:04 | PC.NURSE ---
report received from AYANNA Askew pt is alert and oriented resting in bed no signs of acute distress notice breathing equally unlabored no deficits noticed
--- NOTE | 2022-03-11 22:00 | P.HPHOSP_ITS ---
History of Present Illness Date of Service: 03/11/22 Chief Complaint: TIA symptoms This is a 66-year-old male with significant past medical history that is significant for heart failure preserved ejection fraction, history of esophageal varices, HTN, GERD, gout,presents to the hospital with complaints with episode of confusion and loss of words. pt reports he woke up this morning confused, he was not sure about his surroundings, when he became more lucid that he tried to call his work to tell them that he was going to come in, but had difficulty finding words. He can understand and comprehend what he they were saying to him but he could not make stents of his words. He denies having any headache, no change in vision, no numbness tingling or weakness in his extremities, no facial droop. patient reports symptoms have now resolved. He reports that he has been feeling upper respiratory symptoms for several days including rhinorrhea and general body ahces, with no other focal symptoms. No SOB, no couhg, no fever or chills. No chest pain, no palpitations, no abdominal pain nausea or vomiting, no di arrhea constipation, no urinary symptoms and no lower extremity edema On arrival to the ED patient hemodynamically stable with no significant abnormal vitals Labs are significant for WBC of 6.2, hgb of 9, hct of 28.8 , labs otherwise unremarkable CTA head and neck showed no evidence of acute intracranial hemorrhage or edematous territorial infarction, moderate extensive underlying microangiopathy and generalized cerebral volume loss, upon her infarcts of the deep nuclei CT of the head and neck without proximal lesion or flow-limiting stenosis Review of Systems Review of Systems: Yes all other systems are reviewed and are negative [facility] Medical History Arthritis Ascending aorta dilation Back pain Chronic diarrhea Chronic heart failure with preserved ejection fraction (HFpEF) Chronic right heart failure Diarrhea Esophageal varices Essential hypertension GERD (gastroesophageal reflux disease) Gout Hiatal hernia History of alcoholism History of esophageal varices History of GI bleed History of Wnbar-Nfqoesiao-Qdeyo (WPW) syndrome HTN (hypertension) Idiopathic peripheral neuropathy Lumbar spondylosis Morbid obesity Nocturnal hypoxemia Obesity (BMI 30-39.9) Obesity (BMI 30-39.9) VY (obstructive sleep apnea) VY (obstructive sleep apnea) Pre-diabetes Shoulder injury Family History Father Diabetes mellitus Surgical History H/O cardiac radiofrequency ablation History of colonoscopy History of esophagogastroduodenoscopy (EGD) Social History Household Members: Other Household Members Other:: girlfriend and a brother Housing: House Are you a primary pet care worker to a significant other at home: No Do you presently have visiting nurse or other home services: No Alcohol intake: former Year quit: 1998 Patient Tobacco Use Status: Never used Tobacco e-Cigarette/Vaping Use: Never Used Second Hand Smoke Exposure: No Advance Directives: Yes Advance Directives on File: Yes Advance Directives Date on File: 05/03/20 service: No Current occupational status: employed 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 Cognitive needs: No Hearing needs: No Vision needs: No Meds Allergies Allergy/AdvReac Type Severity Reaction Status Date / Time lisinopril [LISINOPRIL] Allergy Mild TONGUE Verified 03/01/22 10:43 SWELLING, CONFUSION Active Medications: Current Medications Acetaminophen (Acetaminophen 325 Mg Tablet) 650 mg PO Q6H PRN PRN Reason: Pain, Mild (Pain Scale 1-3) Aspirin (Aspirin Enteric Coated 81 Mg Tablet.Dr) 81 mg PO DAILY WALE Docusate Sodium (Docusate Sodium 100 Mg Capsule) 100 mg PO DAILY PRN PRN Reason: Constipation Ondansetron HCl (Ondansetron Hcl 4 Mg/2 Ml Vial) 4 mg IVPUSH Q8H PRN PRN Reason: Nausea and Vomiting Pharmacy Consult (Consult Rx Perform Med Rec) 1 each MISCELLANE ONCE PRN PRN Reason: Consult order Home Medications Medication Instructions Recorded Confirmed Last Taken Type dorzolamide 22.3 mg-timolol 6.8 1 drp ophthalmic (eye) BEDTIME 12/07/19 03/11/22 04/02/21 History mg/mL eye drops latanoprost 0.005 % eye drops 1 drp ophthalmic (eye) BEDTIME 12/07/19 03/11/22 03/11/22 History brimonidine 0.2 % eye drops 1 drp ophthalmic-Left BID 02/16/21 03/11/22 03/11/22 History ascorbic acid (vitamin C) 500 mg 500 mg PO BID 04/03/21 03/11/22 03/11/22 His tory chewable tablet (Vitamin C) diphenhydramine HCl 25 mg capsule 25 mg PO BEDTIME PRN Insomnia 04/03/21 03/11/22 Unknown History (Benadryl) loperamide 2 mg tablet (Imodium 2 mg PO BID 04/03/21 03/11/22 Unknown History A-D) multivitamin 1 tab PO DAILY 04/03/21 03/11/22 03/11/22 History Physical Exam Vital Signs and Narrative: Vital Signs: Last Vital Signs Temp 98.1 F 03/11/22 19:26 Pulse 68 03/11/22 19:26 Resp 14 03/11/22 19:26 BP 134/63 03/11/22 19:26 Pulse Ox 96 03/11/22 19:26 O2 Del Method 03/11/22 19:26 BMI result Body Mass Index 33.7 Const: General: cooperative and no acute distress Orientation/c onsciousness: patient oriented x3 Eyes: General: appearance normal, both eyes and all related structures Resp: Effort & Inspection: normal respiratory effort Auscultation: clear to auscultation bilaterally Cardio: Rate: regular rate Rhythm: regular rhythm GI: Palpation (GI): Soft to palpation Auscultation: normal bowel sounds Skin: General skin exam: no rashes or lesions noted Neuro: Other: no neurological deficits. strength is 5/5 in all extremities General: patient oriented x3 Cognition (Neuro): normal cognition Extrem: General: Yes normal to inspection and Yes no pedal edema Results Labs CBC and Chem 7: 03/11/22 18:30 03/11/22 18:30 Labs: Laboratory Results - last 24 hr 03/11/22 03/11/22 03/11/22 14:51 18:30 18:30 MCV 80.9 MCH 25.3 L MCHC 31.3 RDW 14.2 Plt Count 346 MPV 9.5 Immature Gran % (Auto) 0.2 Neut % (Auto) 58.2 Lymph % (Auto) 23.5 [place] % (Auto) 12.1 H Eos % (Auto) 5.5 H Baso % (Auto) 0.5 Lymph # (Auto) 1.5 [place] # (Auto) 0.8 Eos # (Auto) 0.3 Baso # (Auto) 0.0 Abs Immat Gran (auto) 0.01 Absolute Neuts (auto) 3.6 Absolute Nucleated RBC 0.000 Nucleated RBC % (auto) 0.0 Anion Gap 10 L Estim Creat Clear Calc 91.5 Estimated GFR > 60 Random Glucose 72 Calcium 9.4 D Magnesium 1.9 Total Bilirubin 0.3 Direct Bilirubin < 0.2 AST 12 ALT 13 Alkaline Phosphatase 85 Troponin I High Sens B-Natriuretic Peptide Total Protein 6.4 L Albumin 3.5 Influenza Type A (PCR) NEGATIVE Influenza Type B (PCR) NEGATIVE RSV RNA Qual (PCR) NEGATIVE SARS-CoV-2 RNA (RT-PCR) NEGATIVE 03/11/22 03/11/22 18:30 18:30 MCV MCH MCHC RDW Plt Count MPV Immature Gran % (Auto) Neut % (Auto) Lymph % (Auto) [place] % (Auto) Eos % (Auto) Baso % (Auto) Lymph # (Auto) [place] # (Auto) Eos # (Auto) Baso # (Auto) Abs Immat Gran (auto) Absolute Neuts (auto) Absolute Nucleated RBC Nucleated RBC % (auto) Anion Gap Estim Creat Clear Calc Estimated GFR Random Glucose Calcium Magnesium Total Bilirubin Direct Bilirubin AST ALT Alkaline Phosphatase Troponin I High Sens 3.8 B-Natriuretic Peptide 98 Total Protein Albumin Influenza Type A (PCR) Influenza Type B (PCR) RSV RNA Qual (PCR) SARS-CoV-2 RNA (RT-PCR) Imaging Radiologist's Impressions: Impressions Chest X-Ray 03/11/22 15:15 IMPRESSION: * No radiographic evidence of acute infiltrates or failure. * Cardiomegaly. * Widened upper mediastinum unchanged. Head CT 03/11/22 17:55 IMPRESSION: No acute intracranial abnormality including hemorrhage, mass effect, hydrocephalus, or acute territorial edematous infarction. ?CT/CT angio head neck 03/11/2022 IMPRESSION: 1.? No evidence of acute intracranial hemorrhage or edematous territorial infarction. Moderate to extensive underlying microangiopathy and generalized cerebral volume loss. Lacunar infarcts of the deep nuclei. 2.? CTA of the head and neck without proximal occlusion or flow-limiting stenosis. Assessment and Plan (1) CVA (cerebral vascular accident): Status: Acute Plan this is a 66 yo M with pmhx of HFpEF, OSAObesity, HTN, chronic diarrhea or imodium, presents to the hospital with TIA symptoms Found to have acute lacunar infarct on head CT angiogram # acute CVA - evidence of lacunar infarct of the deep nuclei on CT angiogram of the head - will start patient on aspirin, continue high-dose statin, will obtain echocardiogram - risk stratification, lipid battery, hemoglobin A1c - neurology consult, MRI in the morning # chronic diarrhea - continue Imodium # hypertension - BP stable - hold antihypertensives in the setting of acute CVA # VY - CPAP at bedtime # GERD - continue PPI DVT prophylaxis: Early ambulation Time Spent With Patient Time: Total time managing care of this patient today ____ minutes. Quality Stroke Does the patient have a stroke diagnosis?: No VTE Prior VTE?: No VTE Risk Level:: Medical - low VTE Device Contraindication: Treatment Not Indicated VTE Drug Contraindication: Treatment Not Indicated
[2022-03-11 22:24] VITALS: BP 147/74; PULSE 87; RESP 18; O2SAT 95
--- NOTE | 2022-03-12 00:58 | PC.NURSE ---
pt restless, unable to lie down, ambulating to and from bathroom. offered po benadryl per mar orders for insomnia, but unable to obtain - not available in overflow pyxis. 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
[2022-03-12 02:00] VITALS: BP 137/69; PULSE 91; RESP 16; TEMP 36.6; O2SAT 95
[2022-03-12 06:54] LABS: Glucose, Whole Blood 107 mg/dL (60-115)
[2022-03-12 06:59] LABS: MANUAL DIFF FLAG NO
--- NOTE | 2022-03-12 07:00 | CA_ITS ---
Transthoracic Echocardiogram Patient (Last, First, Middle): Alek Vasquez R Gender: Male Date of : 1955 Age: 66 Procedure Date: 03/12/2022 Procedure Type: Transthoracic Echocardiogram Location: ER Height: 172.72 cm Weight: 107.96 kg BSA: 2.20 m2 Heart Rate: 74 bpm BP: 137 / 69 mmHg Instructor Psychiatric Aide: ABBY Referring MD: Bobby Nguyen MD Symptoms: Stroke Study Quality: Poor/Contrast ECG Rhythm: Sinus Conclusions: - The left ventricular systolic function is normal. The visually estimated ejection fraction is between 60-65%. - Even with contrast, difficult to assess wall motion, but grossly no overt findings. - There is mild aortic valve regurgitation. - There is moderate dilatation of the sinuses of Valsalva measuring 4.40 cm and moderate dilatation of the ascending aorta measuring 4.50 cm. Findings Procedure Information Contrast agent, definity, is being given per protocol without apparent complications. Left Ventricle Normal left ventricular cavity size. There is mildly increased left ventricular wall thickness. The left ventricular systolic function is normal. The visually estimated ejection fraction is between 60-65%. The calculated ejection fraction is 62% by biplane method. E/E prime ratio is between 8 and 15 consistent with indeterminate filling pressures. Evidence suggests grade I (mild) diastolic dysfunction. Even with contrast, difficult to assess wall motion, but grossly no overt findings. Right Ventricle Normal right ventricular cavity size and systolic function. Atria Both atria are normal in size. Aortic Valve The aortic valve was not well visualized. There is mild calcification of the aortic valve. There is no aortic valve stenosis. There is mild aortic valve regurgitation. Mitral Valve The mitral valve appears normal. There is trace mitral valve regurgitation. There is no mitral valve stenosis. Pulmonic Valve The pulmonic valve is likely normal. Tricuspid Valve Normal tricuspid valve structure. There is trace tricuspid valve regurgitation. There is no evidence of pulmonary hypertension. Great Vessels There is moderate dilatation of the sinuses of Valsalva measuring 4.40 cm and moderate dilatation of the ascending aorta measuring 4.50 cm. Venous The inferior vena cava is normal in size and collapses greater than 50% with inspiration. Pericardium/Pleural There is no evidence of pericardial effusion. Prior Study Comparison No significant change compared to prior study dated: 03/06/2021. Measurements 2D Linear Measurements IVSd: 1.34 0.6-0.9/0.6-1.0 cm LVIDd: 5.84 3.9-5.3/4.2-5.9 cm LVIDd Index: 2.65 2.4-3.2/2.2-3.1 cm/m2 LVIDs: 3.38 2.0-3.6 cm LVPWd: 1.07 0.7-1.1 cm LA Diam: 4.30 2.7-3.8/3.0-4.0 cm LAIDs Index: 1.95 1.5-2.3 cm/m2 LV Mass: 376.83 67-162/88-224 g LV Mass Index: 171.29 43-95/49-115 g/m2 LVOT Diam: 2.60 3.0+(-)1.3 cm 2D Systolic Function EF 4C: 52.00 >55% EF 2C: 69.80 >55% EF BiP: 61.50 >55% Mitral Valve MV Pk E: 0.76 MV PK A: 0.87 MV Decel Time: 243.00 E/A: 0.90 E'Lateral: 6.53 E'Medial: 4.90 E/E' Med: 15.60 E/E' Lat: 11.70 PHT: 71.00 MVA PHT: 3.[address] [place]: 3.14 Aortic Valve AoV Pk Raheel: 1.71 AoV Mn Raheel: 1.15 AoV VTI: 0.32 AoV Pk Grad: 12.00 Aov Mn Grad: 6.00 NEENA Cont.VTI: 4.07 LVOT LVOT Pk Raheel: 1.30 LVOT Mn Raheel: 0.91 LVOT VTI: 0.25 LVOT Pk Grad: 7.00 LVOT Mn Grad: 4.00 LVOT Diam: 2.60 LVOT Area: 5.31 Diastolic Function MV Pk E: 0.76 MV Pk A: 0.87 E/A: 0.90 E'Medial: 4.90 E/E' Med: 15.60 E' Laterial: 6.53 E/E' Lat: 11.70 Right Ventricle TAPSE (mm): 21.90 TVS' Raheel: 18.60 Tricuspid Valve TR Pk Raheel: 2.03 TR Pk Grad: 16.00 RA Press: 3.00 RVSP: 19.00 Great Vessels Aorta Sinus of Valsalva: 4.40 2.0-3.5 cm Ao Asc: 4.50 2.1-3.4 cm Pulmonary Valve PV Pk Raheel: 1.07 Peak PV Grad: 5.00 Updated in Other Vendor System with Status of Final Otilio Shaffer MD electronically signed on 03/12/2022 11:46:12 AM with status of Final
[2022-03-12 07:01] LABS: Basophils Percent Auto 0.5 % (0-2); Eosinophils Absolute Auto 0.2 X10*3/uL (0.0-0.4); Eosinophils Percent Auto 3.5 % (0-4); Hemoglobin 9.4 g/dl (14.0-18.0); Imm Gran Abs Auto 0.03 X10*3/uL (0.00-0.03); Imm Gran Pct Auto 0.5 % (0.0-0.4); Lymphocytes Absolute Auto 1.4 X10*3/uL (1.2-4.9); Lymphocytes Percent Auto 23.5 % (20-40); Mean Corpuscular HGB Conc 31.3 g/dl (31.0-36.0); Mean Corpuscular Hemoglobin 25.1 pg (27.0-33.0); Mean Corpuscular Volume 80.2 fL (80.0-98.0); Mean Platelet Volume 9.7 fL (9.4-12.4); Monocytes Absolute Auto 0.5 X10*3/uL (0.1-1.2); Monocytes Percent Auto 8.4 % (2-11); Neutrophils Absolute Auto 3.9 x10*3/uL (2.0-8.3); Neutrophils Percent Auto 63.6 % (45-73); Platelet Count 388 X10*3/uL (160-400); Red Blood Count 3.74 X10*6/uL (4.60-5.80); Red Cell Distribution Width 14.4 % (11.0-16.0); White Blood Count 6.1 X10*3/uL (4.8-10.8)
--- NOTE | 2022-03-12 07:16 | PC.NURSE ---
assumed care of patient, pt resting comfortably in bed, breakfast tray delivered, awaiting inpt bed, VSS
[2022-03-12 07:22] LABS: Cholesterol 95 mg/dL; HDL Cholesterol 25 mg/dL; LDL Cholesterol Calculated 54 mg/dl; Triglycerides 83 mg/dL
[2022-03-12 07:30] LABS: Anion Gap 16 (12-20); Blood Urea Nitrogen 16 mg/dL (9-16); Calcium 9.7 mg/dL (8.4-10.2); Carbon Dioxide 21 mmol/L (22-29); Chloride 107 mmol/L (96-108); Creatinine Clr Calc Pharmacy 95.5; Estimated Glomerular Filt Rate > 60; Glucose Random 105 mg/dL (60-115); Potassium 4.4 mmol/L (3.3-5.1); Sodium 140 mmol/L (135-145)
[2022-03-12] MEDS: NIFEdipine ER 90 MG TAB.ER.24 PO (08:27)
[2022-03-12] MEDS: Omeprazole 20 MG CAPSULE.DR PO (08:27)
[2022-03-12] MEDS: Metoprolol Succinate ER 100 MG TAB.ER.24H 200 MG PO (08:27)
[2022-03-12] MEDS: allopurinoL 300 MG TABLET PO (08:27)
[2022-03-12] MEDS: Loperamide HCl 2 MG CAPSULE PO (08:27)
[2022-03-12] MEDS: Aspirin Enteric Coated 81 MG TABLET.DR PO (08:27)
[2022-03-12] MEDS: Multivitamin TABLET 1 TAB PO (08:28)
[2022-03-12] MEDS: Ascorbic Acid 500 MG TABLET PO (08:28)
[2022-03-12] MEDS: Furosemide 20 MG TABLET PO (08:28)
[2022-03-12 08:29] VITALS: BP 137/69; PULSE 91; O2SAT 95
--- NOTE | 2022-03-12 08:45 | MHC.CM.PN ---
CM spoke with Patient on his cell at [phone] and addressed [place] with him. 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 Home self care is the goal and CM has initiated and will follow for dc planning. Patient pk received Covid vax x3 and his PCP is Dr. Conchita Chavis.
[2022-03-12 09:05] LABS: Estimated Average Glucose 137 mg/dL; Hemoglobin A1c % 6.4 %
[2022-03-12 10:46] VITALS: BP 132/70; PULSE 72; RESP 18; O2SAT 95
[2022-03-12 12:36] LABS: Glucose, Whole Blood 105 mg/dL (60-115)
--- NOTE | 2022-03-12 13:28 | PM.DS ---
DS: Providers Provider Date of Service: 03/12/22 Date of admission: 03/11/22 21:47 Date of discharge: 03/12/22 Primary care physician: Conchita Chavis MD Consults: 03/11/22 21:49 Consult to Neurology Routine Consulting Provider: [facility] Reason for consultation: TIA Has provider been notified: No DS: Diagnosis Discharge Diagnosis (1) CVA (cerebral vascular accident): Status: Acute (2) Viral infection: Status: Acute (3) Iron deficiency: Status: Acute DS: Summary Hospital Course Hospital Course: from admission H+P by hospitalist Bobby Nguyen MD, 03/11/22: This is a 66-year-old male with significant past medical history that is significant for heart failure preserved? ejection fraction, history of esophageal varices, HTN, GERD, gout,presents to the hospital with complaints with episode of confusion and loss of words. pt reports? he woke up this morning confused, he was not sure about his surroundings, when he became more lucid that he tried to call his work to tell them that he was going to come in, but had difficulty finding words.? He can understand and comprehend what he they were saying to him but he could not make stents of his words.? He denies having any headache, no change in vision, no numbness tingling or weakness in his extremities, no facial droop. patient reports symptoms have now resolved. He reports that he has been feeling upper respiratory symptoms for several days including rhinorrhea and general body ahces, with no other focal symptoms. No SOB, no couhg, no fever or chills. No chest pain, no palpitations, no abdominal pain nausea or vomiting, no diarrhea constipation, no urinary symptoms and no lower extremity edema On arrival to the ED patient hemodynamically stable with no significant abnormal vitals Labs are significant for WBC of 6.2, hgb of 9, hct of 28.8 , labs otherwise unremarkable CTA head and neck showed? no evidence of acute intracranial hemorrhage or edematous? territorial infarction, moderate extensive underlying microangiopathy and generalized cerebral volume loss, upon her infarcts of the deep nuclei ?CT of the head and neck without proximal lesion or flow-limiting stenosis He was admitted to the hospitalist service on telemetry. Symptoms resolved completely. No arrhythmias on telemetry. A1c 6.4 consistent with history of prediabetes. Neurology was consulted. He was started on aspirin for secondary prevention. Statin was intensified. Attention to lifestyle modification was counseled. He was discharged home with Primary Care follow-up. He has iron deficiency anemia and iron replacement was prescribed. Time Spent with Patient Time attestation: Total time managing care of this patient today __41__ minutes. Discharge coordination time: Greater than 30 minutes Quality: Safe Use of Opioids Does Pt have an Active Cancer Diagnosis on the Problem List?: No Quality: Stroke Does the patient have a stroke diagnosis?: Yes Reason for No Anti-thrombotic at DC: N/A - Med Ordered Reason for No Anticoagulant at DC: Drug treatment not indicated Reason Not Initiating IV-Tpa: Drug treatment not indicated Reason for No Anti-thrombotic by Day Two: N/A - Med Ordered Reason for No Statin at DC: N/A - Med Ordered Physical Exam Vital Signs: Vital Signs: Last Vital Signs Temp 97.9 F 03/12/22 02:00 Pulse 72 03/12/22 10:46 Resp 18 03/12/22 10:46 BP 132/70 03/12/22 10:46 Pulse Ox 95 03/12/22 10:46 O2 Del Method 03/12/22 10:46 BMI result Body Mass Index 33.7 Gen: in no acute distress HEENT: sclera anicteric, moist mucus membranes Neck: supple Lungs: clear to auscultation bilaterally Heart: regular rate and rhythm, no murmurs Abd: soft, non-tender, non-distended, obese Ext: no edema Skin: warm/well-perfused Neuro: alert and oriented x3, no focal findings Psych: appropriate affect DS: Data Data Completed and Pending Completed studies during hospitalization [Text1]: Laboratory Results WBC 6.1 X10*3/uL (4.8-10.8) 03/12/22 06:15 RBC 3.74 X10*6/uL (4.60-5.80) L 03/12/22 06:15 Hgb 9.4 g/dl (14.0-18.0) L 03/12/22 06:15 Hct 30.0 % (42.0-52.0) L 03/12/22 06:15 MCV 80.2 fL (80.0-98.0) 03/12/22 06:15 MCH 25.1 pg (27.0-33.0) L 03/12/22 06:15 MCHC 31.3 g/dl (31.0-36.0) 03/12/22 06:15 RDW 14.4 % (11.0-16.0) 03/12/22 06:15 Plt Count 388 X10*3/uL (160-400) 03/12/22 06:15 MPV 9.7 fL (9.4-12.4) 03/12/22 06:15 Immature Gran % (Auto) 0.5 % (0.0-0.4) H 03/12/22 06:15 Neut % (Auto) 63.6 % (45-73) 03/12/22 06:15 Lymph % (Auto) 23.5 % (20-40) 03/12/22 06:15 Bureau % (Auto) 8.4 % (2-11) 03/12/22 06:15 Eos % (Auto) 3.5 % (0-4) 03/12/22 06:15 Baso % (Auto) 0.5 % (0-2) 03/12/22 06:15 Lymph # (Auto) 1.4 X10*3/uL (1.2-4.9) 03/12/22 06:15 Bureau # (Auto) 0.5 X10*3/uL (0.1-1.2) 03/12/22 06:15 Eos # (Auto) 0.2 X10*3/uL (0.0-0.4) 03/12/22 06:15 Baso # (Auto) 0.0 X10*3/uL (0.0-0.2) 03/12/22 06:15 Abs Immat Gran (auto) 0.03 X10*3/uL (0.00-0.03) 03/12/22 06:15 Absolute Neuts (auto) 3.9 x10*3/uL (2.0-8.3) 03/12/22 06:15 Absolute Nucleated RBC 0.000 X10*3/uL (0.0-0.012) 03/12/22 06:15 Nucleated RBC % (auto) 0.0 /100WBC (0.0-0.2) 03/12/22 06:15 Sodium 140 mmol/L (135-145) 03/12/22 06:15 Potassium 4.4 mmol/L (3.3-5.1) 03/12/22 06:15 Chloride 107 mmol/L (96-108) 03/12/22 06:15 Carbon Dioxide 21 mmol/L (22-29) L 03/12/22 06:15 Anion Gap 16 (12-20) 03/12/22 06:15 BUN 16 mg/dL (9-16) 03/12/22 06:15 Creatinine 0.93 mg/dL (0.5-1.4) 03/12/22 06:15 Estim Creat Clear Calc 95.5 03/12/22 06:15 Estimated GFR > 60 03/12/22 06:15 POC Glucose 105 mg/dL (60-115) 03/12/22 12:30 Random Glucose 105 mg/dL (60-115) 03/12/22 06:15 Estimat Average Glucose 137 mg/dL 03/12/22 06:15 Hemoglobin A1c % 6.4 % 03/12/22 06:15 Calcium 9.7 mg/dL (8.4-10.2) 03/12/22 06:15 Magnesium 1.9 mg/dL (1.6-2.6) 03/11/22 18:30 Total Bilirubin 0.3 mg/dL (0.0-1.0) 03/11/22 18:30 Direct Bilirubin < 0.2 mg/dL (0.0-0.5) 03/11/22 18:30 AST 12 U/L (5-37) 03/11/22 18:30 ALT 13 U/L (0-40) 03/11/22 18:30 Alkaline Phosphatase 85 U/L (39-117) 03/11/22 18:30 Troponin I High Sens 3.8 ng/L (<3.5-35.0) 03/11/22 18:30 B-Natriuretic Peptide 98 pg/mL (<100) 03/11/22 18:30 Total Protein 6.4 g/dL (6.5-8.0) L 03/11/22 18:30 Albumin 3.5 g/dL (3.5-5.0) 03/11/22 18:30 Triglycerides 83 mg/dL 03/12/22 06:15 Cholesterol 95 mg/dL D 03/12/22 06:15 LDL Cholesterol, Calc 54 mg/dl 03/12/22 06:15 HDL Cholesterol 25 mg/dL 03/12/22 06:15 Influenza Type A (PCR) NEGATIVE (Negative) 03/11/22 14:51 Influenza Type B (PCR) NEGATIVE (Negative) 03/11/22 14:51 RSV RNA Qual (PCR) NEGATIVE (Negative) 03/11/22 14:51 SARS-CoV-2 RNA (RT-PCR) NEGATIVE (Negative) 03/11/22 14:51 Impressions Chest X-Ray 03/11/22 15:15 IMPRESSION: * No radiographic evidence of acute infiltrates or failure. * Cardiomegaly. * Widened upper mediastinum unchanged. Head CT 03/11/22 17:55 IMPRESSION: No acute intracranial abnormality including hemorrhage, mass effect, hydrocephalus, or acute territorial edematous infarction. Head/Neck CTA 03/11/22 20:53 IMPRESSION: 1. No evidence of acute intracranial hemorrhage or edematous territorial infarction. Moderate to extensive underlying microangiopathy and generalized cerebral volume loss. Lacunar infarcts of the deep nuclei. 2. CTA of the head and neck without proximal occlusion or flow-limiting stenosis. Brain MRI 03/12/22 08:00 IMPRESSION: The patient could not complete this study which is incomplete and limited. Accounting for artifact there are no definite acute infarcts on the diffusion series. There is global cerebral volume loss, there is advanced chronic microangiopathy, and there are chronic lacunar infarcts within the reza and supratentorial white matter. TTE 03/12/22 - The left ventricular systolic function is normal.? The visually estimated ejection fraction is between 60-65%. ? - Even with contrast, difficult to assess wall motion, but ? ? ? grossly no overt findings. ? - There is mild aortic valve regurgitation.? - There is moderate dilatation of the sinuses of Valsalva? measuring 4.40 cm and moderate dilatation of the ascending aorta measuring 4.50 cm. ? Discharge Plan Discharge Anticipated Discharge Date/Time: 03/12/22 19:00 Patient Disposition: Home, Self-Care Discharge Diagnosis: stroke iron deficiency anemia Referrals: Conchita Chavis MD [Primary Care Provider] - 1 Week Discharge Medications: New aspirin 81 mg Tablet,Delayed Release (Dr/Ec) 81 mg PO DAILY Qty: 30 0RF atorvastatin 80 mg tablet 80 mg PO BEDTIME Qty: 30 0RF ferrous sulfate 325 mg (65 mg iron) tablet 325 mg PO DAILY Qty: 30 0RF Continued furosemide [Lasix] 20 mg tablet 20 mg PO DAILY Qty: 90 3RF (DME) ancelmo vera See Rx Instructions .Route .MEDSUPPLY Qty: 2 0RF Rx Instructions: As directed pantoprazole 40 mg tablet,delayed release (DR/EC) 40 mg PO DAILY 30 Days Qty: 30 6RF gabapentin 300 mg capsule 300 mg PO BEDTIME 30 Days Qty: 90 0RF nifedipine 90 mg tablet extended release 24hr 90 mg PO DAILY Qty: 90 3RF Hold Instructions: Hypotension allopurinol 300 mg tablet 300 mg PO DAILY Qty: 90 1RF metoprolol succinate 200 mg tablet extended release 24 hr 200 mg PO DAILY Qty: 90 3RF indomethacin 50 mg capsule 50 mg PO TID PRN (Reason: pain) 30 Days Qty: 60 2RF latanoprost 0.005 % drops 1 drp ophthalmic (eye) BEDTIME dorzolamide-timolol 22.3-6.8 mg/mL drops 1 drp ophthalmic (eye) BEDTIME multivitamin Tablet 1 tab PO DAILY loperamide [Imodium A-D] 2 mg Tablet 2 mg PO BID diphenhydramine HCl [Benadryl] 25 mg Capsule 25 mg PO BEDTIME PRN (Reason: Insomnia) ascorbic acid (vitamin C) [Vitamin C] 500 mg Tablet,Chewable 500 mg PO BID brimonidine 0.2 % drops 1 drp ophthalmic-Left BID Discontinued atorvastatin 40 mg tablet 40 mg PO BEDTIME 90 Days Qty: 90 3RF Discharge Orders: Discharge Order (Routine); Ordered 03/12/22 Ordered By: Victor Manuel Larios Diet: Low salt diet Activity on Discharge: As tolerated Stand Alone Forms: Patient Portal Discharge page Care Plan Goals: prevent future strokes treat anemia Health Concerns: stroke iron deficiency anemia Plan of Treatment: take aspirin 81 mg daily and atorvastatin 80 mg daily take ferrous sulfate 324 mg daily Mediterranean diet, weight loss, exercise, blood pressure and blood glucose control Please follow up with your primary care doctor within 1 week. Return to the hospital if you experience recurrent or worsening symptoms. Assessment: See Discharge Summary. Patient Instructions: Viral Syndrome (ED), Stroke (DC), Mediterranean Diet (DC) Discharge Date/Time: 03/12/22 17:06
--- NOTE | 2022-03-12 13:36 | MHC.SL.SWA ---
Speech Pathologist Impression: Risk of Aspiration Due to: Neurological Condition Dysphasia Diet Status: Liquid Consistency and Strategies for Safe Swallow: Liquid Intake Recommendation: Thin Liquid Intake Strategies: Unrestricted Solid Food Consistency: Dietary Recommendations: Regular Additional Modifications to Solid Foods: Oral Medication Intake: Whole with Liquid Please contact the pharmacy regarding appropriate crushable or liquid drug formulations that are available whenever modified delivery is recommended. Compensatory Strategies and Precautions to be Taken for Safe Swallow: Sitting Upright (90 deg) Small Bites and Sips Avoid Specific Foods Supervision While Eating and Drinking for Safe Swallow: None Needed Foods to Avoid: Avoid crunchy, hard foods. Swallowing Recommended Treatments: Recommendation for Speech: NA:Typical Evaluation Further Testing Needed Comment: On clinical swallow evaluation, patient presents with all aspect WFL. On informal speech/language assessment, patient presents with mild wordfinding difficulties in conversation, which per patient has been steadily improving since onset of symptoms. Recommend Speech/Language/Cognitive evaluation to more fully assess language and cognitive needs. Patient indicated that he was likely to be discharged today, if this is indicated, recommend assessment referral as outpatient. Recommendations sent by secure text to MD/LETI. MOP MAKER will continue to follow for assessment if patient remains inpatient. Frequency/Duration: Date Range for Service Req: Timeline to reassess: Trials Manager Clinican/Clinical Fellow: No Supervisory Statement: I have reviewed and agree with the student/clinical fellow's documentation: N/A Speech Language Pathologist: Vianey Harris M.A., [facility]
--- NOTE | 2022-03-12 14:37 | HO.PM.IMPN ---
Subjective Subjective Date of Service: 03/12/22 Interval History: mild word finding difficulty, otherwise no symptoms Review of Systems Review of Systems: Yes all other systems are reviewed and are negative Physical Exam Vital Signs: Vital Signs: Last Vital Signs Temp 97.9 F 03/12/22 02:00 Pulse 72 03/12/22 10:46 Resp 18 03/12/22 10:46 BP 132/70 03/12/22 10:46 Pulse Ox 95 03/12/22 10:46 O2 Del Method 03/12/22 10:46 BMI result Body Mass Index 33.7 Gen: in no acute distress HEENT: sclera anicteric, moist mucus membranes Neck: supple Lungs: clear to auscultation bilaterally Heart: regular rate and rhythm, no murmurs Abd: soft, non-tender, non-distended Ext: no edema Skin: warm/well-perfused Neuro: alert and oriented x3, no focal findings, no pronator drift, no facial droop Psych: appropriate affect Objective Data Active Medications Acetaminophen (Acetaminophen 325 Mg Tablet) 650 mg PO Q6H PRN PRN Reason: Pain, Mild (Pain Scale 1-3) Allopurinol (Allopurinol 300 Mg Tablet) 300 mg PO DAILY [facility] Last Admin: 03/12/22 08:27 Dose: 300 mg Documented By: MARVEL Ascorbic Acid (Ascorbic Acid 500 Mg Tablet) 500 mg PO BID [facility] Last Admin: 03/12/22 08:28 Dose: 500 mg Documented By: MARVEL Aspirin (Aspirin Enteric Coated 81 Mg Tablet.) 81 mg PO DAILY [facility] Last Admin: 03/12/22 08:27 Dose: 81 mg Documented By: MARVEL Atorvastatin Calcium (Atorvastatin Calcium 40 Mg Tablet) 40 mg PO BEDTIME [facility] Brimonidine Tartrate (Brimonidine Tartrate 0.2% Oph 5 Ml Bottle) 1 drop EYE-LEFT BID [facility] Last Admin: 03/12/22 08:28 Dose: Not Given Documented By: MARVEL Non-Admin Reason: Med Not Available Diphenhydramine HCl (Diphenhydramine Hcl 25 Mg Capsule) 25 mg PO BEDTIME PRN PRN Reason: Insomnia Docusate Sodium (Docusate Sodium 100 Mg Capsule) 100 mg PO DAILY PRN PRN Reason: Constipation Dorzolamide/Timolol (Dorzolamide/Timolo 2.23%/0.68% 10 Ml Drbtl) 1 drop EYE-BOTH BEDTIME [facility] Furosemide (Furosemide 20 Mg Tablet) 20 mg PO DAILY [facility]; Protocol Last Admin: 03/12/22 08:28 Dose: 20 mg Documented By: CICI-VALERIE Gabapentin (Gabapentin 300 Mg Capsule) 300 mg PO BEDTIME [facility] Latanoprost (Latanoprost 0.005 % Ophth [place] 2.5 Ml Drops) 1 drop EYE-BOTH BEDTIME [facility] Loperamide HCl (Loperamide Hcl 2 Mg Capsule) 2 mg PO BID [facility] Last Admin: 03/12/22 08:27 Dose: 2 mg Documented By: CICI-VALERIE Metoprolol Succinate (Metoprolol Succinate Er 100 Mg Tab.Er.24h) 200 mg PO DAILY [facility]; Protocol Last Admin: 03/12/22 08:27 Dose: 200 mg Documented By: CICI-VALERIE Multivitamins/Vitamin C (Multivitamin Tablet) 1 tab PO DAILY [facility] Last Admin: 03/12/22 08:28 Dose: 1 tab Documented By: MARVEL Nifedipine (Nifedipine Er 90 Mg Tab.Er.24) 90 mg PO DAILY [facility]; Protocol Last Admin: 03/12/22 08:27 Dose: 90 mg Documented By: MARVEL Omeprazole (Omeprazole 20 Mg Capsule.Dr) 20 mg PO DAILY [facility] Last Admin: 03/12/22 08:27 Dose: 20 mg Documented By: CICI-VALERIE Ondansetron HCl (Ondansetron Hcl 4 Mg/2 Ml Vial) 4 mg IVPUSH Q8H PRN PRN Reason: Nausea and Vomiting Pharmacy Consult (Consult Rx Perform Med Rec) 1 each MISCELLANE ONCE PRN PRN Reason: Consult order Labs CBC & Chem 7: 03/12/22 06:15 03/12/22 06:15 Labs: Laboratory Results - last 24 hr 03/11/22 03/11/22 03/11/22 14:51 18:30 18:30 MCV 80.9 MCH 25.3 L MCHC 31.3 RDW 14.2 Plt Count 346 MPV 9.5 Immature Gran % (Auto) 0.2 Neut % (Auto) 58.2 Lymph % (Auto) 23.5 [place] % (Auto) 12.1 H Eos % (Auto) 5.5 H Baso % (Auto) 0.5 Lymph # (Auto) 1.5 [place] # (Auto) 0.8 Eos # (Auto) 0.3 Baso # (Auto) 0.0 Abs Immat Gran (auto) 0.01 Absolute Neuts (auto) 3.6 Absolute Nucleated RBC 0.000 Nucleated RBC % (auto) 0.0 Anion Gap 10 L Estim Creat Clear Calc 91.5 Estimated GFR > 60 POC Glucose Random Glucose 72 Estimat Average Glucose Hemoglobin A1c % Calcium 9.4 D Magnesium 1.9 Total Bilirubin 0.3 Direct Bilirubin < 0.2 AST 12 ALT 13 Alkaline Phosphatase 85 Troponin I High Sens B-Natriuretic Peptide Total Protein 6.4 L Albumin 3.5 Triglycerides Cholesterol LDL Cholesterol, Calc HDL Cholesterol Influenza Type A (PCR) NEGATIVE Influenza Type B (PCR) NEGATIVE RSV RNA Qual (PCR) NEGATIVE SARS-CoV-2 RNA (RT-PCR) NEGATIVE 03/11/22 03/11/22 03/12/22 18:30 18:30 06:15 MCV 80.2 MCH 25.1 L MCHC 31.3 RDW 14.4 Plt Count 388 MPV 9.7 Immature Gran % (Auto) 0.5 H Neut % (Auto) 63.6 Lymph % (Auto) 23.5 [place] % (Auto) 8.4 Eos % (Auto) 3.5 Baso % (Auto) 0.5 Lymph # (Auto) 1.4 [place] # (Auto) 0.5 Eos # (Auto) 0.2 Baso # (Auto) 0.0 Abs Immat Gran (auto) 0.03 Absolute Neuts (auto) 3.9 Absolute Nucleated RBC 0.000 Nucleated RBC % (auto) 0.0 Anion Gap Estim Creat Clear Calc Estimated GFR POC Glucose Random Glucose Estimat Average Glucose Hemoglobin A1c % Calcium Magnesium Total Bilirubin Direct Bilirubin AST ALT Alkaline Phosphatase Troponin I High Sens 3.8 B-Natriuretic Peptide 98 Total Protein Albumin Triglycerides Cholesterol LDL Cholesterol, Calc HDL Cholesterol Influenza Type A (PCR) Influenza Type B (PCR) RSV RNA Qual (PCR) SARS-CoV-2 RNA (RT-PCR) 03/12/22 03/12/22 03/12/22 06:15 06:15 06:15 MCV MCH MCHC RDW Plt Count MPV Immature Gran % (Auto) Neut % (Auto) Lymph % (Auto) [place] % (Auto) Eos % (Auto) Baso % (Auto) Lymph # (Auto) [place] # (Auto) Eos # (Auto) Baso # (Auto) Abs Immat Gran (auto) Absolute Neuts (auto) Absolute Nucleated RBC Nucleated RBC % (auto) Anion Gap 16 Estim Creat Clear Calc 95.5 Estimated GFR > 60 POC Glucose Random Glucose 105 Estimat Average Glucose 137 Hemoglobin A1c % 6.4 Calcium 9.7 Magnesium Total Bilirubin Direct Bilirubin AST ALT Alkaline Phosphatase Troponin I High Sens B-Natriuretic Peptide Total Protein Albumin Triglycerides 83 Cholesterol 95 D LDL Cholesterol, Calc 54 HDL Cholesterol 25 Influenza Type A (PCR) Influenza Type B (PCR) RSV RNA Qual (PCR) SARS-CoV-2 RNA (RT-PCR) 03/12/22 03/12/22 06:50 12:30 MCV MCH MCHC RDW Plt Count MPV Immature Gran % (Auto) Neut % (Auto) Lymph % (Auto) [place] % (Auto) Eos % (Auto) Baso % (Auto) Lymph # (Auto) [place] # (Auto) Eos # (Auto) Baso # (Auto) Abs Immat Gran (auto) Absolute Neuts (auto) Absolute Nucleated RBC Nucleated RBC % (auto) Anion Gap Estim Creat Clear Calc Estimated GFR POC Glucose 107 105 Random Glucose Estimat Average Glucose Hemoglobin A1c % Calcium Magnesium Total Bilirubin Direct Bilirubin AST ALT Alkaline Phosphatase Troponin I High Sens B-Natriuretic Peptide Total Protein Albumin Triglycerides Cholesterol LDL Cholesterol, Calc HDL Cholesterol Influenza Type A (PCR) Influenza Type B (PCR) RSV RNA Qual (PCR) SARS-CoV-2 RNA (RT-PCR) TTE 1.3.23 - The left ventricular systolic function is normal.? The visually estimated ejection fraction is between 60-65%. ? - Even with contrast, difficult to assess wall motion, but ? ? ? grossly no overt findings. ? - There is mild aortic valve regurgitation.? - There is moderate dilatation of the sinuses of Valsalva? measuring 4.40 cm and moderate dilatation of the ascending aorta measuring 4.50 cm. ? ?? Assessment and Plan (1) CVA (cerebral vascular accident): Status: Acute Plan d#2 66yo M with preDM, HFpEF, HTN, GERD, gout, esophageal varices presenting with episode of confusion/word finding difficulty that has largely resolved. admitted for concern of lacunar CVA # CVA - ASA, high-intensity statin, Neuro consult, PT/OT/PROJECT DEVELOPMENT COORDINATOR, telemetry, echo as above # HFpEF - metoprolol, furosemide # HTN - metoprolol, hold nifedipine to allow permissive hypertension # gout - allopurinol # VTE ppx: SCDs # dispo: antipate home In my clinical judgment, the patient requires continued inpatient hospitalization for the following reasons: neuro consultation Time Spent With Patient Time: Total time managing care of this patient today __37__ minutes. Quality Stroke Does the patient have a stroke diagnosis?: Yes Reason for No Anti-thrombotic by Day Two: N/A - Med Ordered VTE Prior VTE?: No VTE Risk Level:: Medical - low VTE Device Contraindication: Treatment Not Indicated VTE Drug Contraindication: Treatment Not Indicated
[2022-03-12 15:10] LABS: Folate 18.7 ng/mL (> or = 4.0); Vitamin B12 528 pg/mL (200-900)
--- NOTE | 2022-03-12 15:42 | PM.NEUROCN ---
History of Present Illness Data of Consult Service Date: 03/12/22 Primary Care Provider: Conchita Chavis MD [facility] Reason for consult: Transient confusion and difficulty finding words This is a 66-year-old male with history of heart failure with preserved? ejection fraction, esophageal varices, HTN, GERD, gout, presentedto [facility] with complaints of confusion and loss of words. He woke up this morning confused, he was not sure about his surroundings, he tried to call his work to tell them that he was not going to come in, but had difficulty finding words.? He could understand and comprehend what they were saying to him but he could not make stents of his words.? He denies having any headache, no change in vision, no numbness tingling or weakness in his extremities, no facial droop. patient reports symptoms have now resolved. He reports that he has been feeling upper respiratory symptoms for several days including rhinorrhea and general body aches, with no other focal symptoms. Hgb of 9, hct of 28.8 , labs otherwise unremarkable. CTA head and neck showed? no evidence of acute intracranial hemorrhage or infarction, moderate extensive underlying microangiopathy and generalized cerebral volume loss, lacunar infarcts of the deep nuclei ?CTA of the head and neck without proximal lesion or flow-limiting stenosis. Limited MRI did not show acute stroke, but showed advanced microvacsular disease Review of Systems Review of Systems: Yes all other systems are reviewed and are negative Constitutional: Constitutional: Reports no additional constitutional complaints, Denies body ache(s), Denies chills, Denies fever(s), Denies headache(s) and Denies weakness Eyes: Eyes: Reports no additional eye complaints and Denies change in vision ENT: Reports system reviewed and no additional complaints, except as documented, Denies dizziness, Denies headache(s), Reports nasal congestion, Denies nasal discharge and Denies neck pain Cardiovascular: Cardiovascular: Reports no additional cardiovascular complaints, Denies chest pain, Denies leg edema and Denies dyspnea Respiratory: Respiratory: Reports no additional respiratory complaints, Reports cough and Denies dyspnea Gastrointestinal: Gastrointestinal: Reports no additional gastrointestinal complaints, Denies abdominal pain, Denies diarrhea, Denies nausea and Denies vomiting Genitourinary: Genitourinary: Denies urinary incontinence Musculoskeletal: Musculoskeletal: Reports no additional musculoskeletal complaints, Denies back pain, Denies arthralgias, Denies joint swelling, Denies neck pain, Denies numbness and Denies tingling Integumentary/Breasts: Skin/Breast: Reports system reviewed and no additional complaints, except as docu and Denies rash Neurologic: Reports system reviewed and no additional complaints, except as documented, Denies Abnormal speech present, Reports confusion, Denies dizziness, Denies headache(s), Denies numbness, Denies tingling and Denies weakness Psychiatric: Psychiatric: Reports confusion PMFSH Past Medical History Medical History Arthritis Ascending aorta dilation Back pain Chronic diarrhea Chronic heart failure with preserved ejection fraction (HFpEF) Chronic right heart failure Diarrhea Esophageal varices Essential hypertension GERD (gastroesophageal reflux disease) Gout Hiatal hernia History of alcoholism History of esophageal varices History of GI bleed History of Wooll-Urxlhswcr-Ahxdz (WPW) syndrome HTN (hypertension) Idiopathic peripheral neuropathy Lumbar spondylosis Morbid obesity Nocturnal hypoxemia Obesity (BMI 30-39.9) Obesity (BMI 30-39.9) VY (obstructive sleep apnea) VY (obstructive sleep apnea) Pre-diabetes Shoulder injury Family History Family History Father Diabetes mellitus Surgical History Surgical History H/O cardiac radiofrequency ablation History of colonoscopy History of esophagogastroduodenoscopy (EGD) Social History Social History Household Members: Other Household Members Other:: girlfriend and a brother Housing: House Are you a primary direct care provider to a significant other at home: No Do you presently have visiting nurse or other home services: No Alcohol intake: former Year quit: 1998 Patient Tobacco Use Status: Never used Tobacco e-Cigarette/Vaping Use: Never Used Second Hand Smoke Exposure: No Advance Directives: Yes Advance Directives on File: Yes Advance Directives Date on File: 05/03/20 service: No Current occupational status: retired 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 Cognitive needs: No Hearing needs: No Vision needs: No Meds Allergies Allergy/AdvReac Type Severity Reaction Status Date / Time lisinopril [LISINOPRIL] Allergy Mild TONGUE Verified 03/01/22 10:43 SWELLING, CONFUSION Active Medications: Current Medications Acetaminophen (Acetaminophen 325 Mg Tablet) 650 mg PO Q6H PRN PRN Reason: Pain, Mild (Pain Scale 1-3) Allopurinol (Allopurinol 300 Mg Tablet) 300 mg PO DAILY [facility] Last Admin: 03/12/22 08:27 Dose: 300 mg Ascorbic Acid (Ascorbic Acid 500 Mg Tablet) 500 mg PO BID [facility] Last Admin: 03/12/22 08:28 Dose: 500 mg Aspirin (Aspirin Enteric Coated 81 Mg Tablet.Dr) 81 mg PO DAILY [facility] Last Admin: 03/12/22 08:27 Dose: 81 mg Atorvastatin Calcium (Atorvastatin Calcium 40 Mg Tablet) 40 mg PO BEDTIME [facility] Brimonidine Tartrate (Brimonidine Tartrate 0.2% Oph 5 Ml Bottle) 1 drop EYE-LEFT BID [facility] Last Admin: 03/12/22 08:28 Dose: Not Given Diphenhydramine HCl (Diphenhydramine Hcl 25 Mg Capsule) 25 mg PO BEDTIME PRN PRN Reason: Insomnia Docusate Sodium (Docusate Sodium 100 Mg Capsule) 100 mg PO DAILY PRN PRN Reason: Constipation Dorzolamide/Timolol (Dorzolamide/Timolo 2.23%/0.68% 10 Ml Drbtl) 1 drop EYE-BOTH BEDTIME [facility] Furosemide (Furosemide 20 Mg Tablet) 20 mg PO DAILY [facility]; Protocol Last Admin: 03/12/22 08:28 Dose: 20 mg Gabapentin (Gabapentin 300 Mg Capsule) 300 mg PO BEDTIME [facility] Latanoprost (Latanoprost 0.005 % Ophth [place] 2.5 Ml Drops) 1 drop EYE-BOTH BEDTIME [facility] Loperamide HCl (Loperamide Hcl 2 Mg Capsule) 2 mg PO BID [facility] Last Admin: 03/12/22 08:27 Dose: 2 mg Metoprolol Succinate (Metoprolol Succinate Er 100 Mg Tab.Er.24h) 200 mg PO DAILY [facility]; Protocol Last Admin: 03/12/22 08:27 Dose: 200 mg Multivitamins/Vitamin C (Multivitamin Tablet) 1 tab PO DAILY [facility] Last Admin: 03/12/22 08:28 Dose: 1 tab Nifedipine (Nifedipine Er 90 Mg Tab.Er.24) 90 mg PO DAILY [facility]; Protocol Last Admin: 03/12/22 08:27 Dose: 90 mg Omeprazole (Omeprazole 20 Mg Capsule.Dr) 20 mg PO DAILY [facility] Last Admin: 03/12/22 08:27 Dose: 20 mg Ondansetron HCl (Ondansetron Hcl 4 Mg/2 Ml Vial) 4 mg IVPUSH Q8H PRN PRN Reason: Nausea and Vomiting Pharmacy Consult (Consult Rx Perform Med Rec) 1 each MISCELLANE ONCE PRN PRN Reason: Consult order Home Medications Medication Instructions Recorded Confirmed Last Taken Type dorzolamide 22.3 mg-timolol 6.8 1 drp ophthalmic (eye) BEDTIME 12/07/19 03/11/22 04/02/21 History mg/mL eye drops latanoprost 0.005 % eye drops 1 drp ophthalmic (eye) BEDTIME 12/07/19 03/11/22 03/11/22 History brimonidine 0.2 % eye drops 1 drp ophthalmic-Left BID 02/16/21 03/11/22 03/11/22 History ascorbic acid (vitamin C) 500 mg 500 mg PO BID 04/03/21 03/11/22 03/11/22 History chewable tablet (Vitamin C) diphenhydramine HCl 25 mg capsule 25 mg PO BEDTIME PRN Insomnia 04/03/21 03/11/22 Unknown History (Benadryl) loperamide 2 mg tablet (Imodium 2 mg PO BID 04/03/21 03/11/22 Unknown History A-D) multivitamin 1 tab PO DAILY 04/03/21 03/11/22 03/11/22 History Physical Exam Vital Signs: Vital Signs: Last Vital Signs Temp 97.9 F 03/12/22 02:00 Pulse 72 03/12/22 10:46 Resp 18 03/12/22 10:46 BP 132/70 03/12/22 10:46 Pulse Ox 95 03/12/22 10:46 O2 Del Method 03/12/22 10:46 BMI result Body Mass Index 33.7 Const: General: cooperative, healthy appearing, comfortable, no acute distress and confusion Orientation/consciousness: patient oriented x3 and confusion Limitations: no limitations HEENT: Head: Yes normal to inspection Ears: hearing grossly normal bilaterally and TM's normal bilaterally General nose exam: Normal external nose present Face and sinus: Yes normal facial exam Throat: Yes posterior oropharynx normal, Yes tonsils normal and Yes uvula midline Eyes: General: appearance normal, both eyes and all related structures Pupils: Equal, round and reactive pupils present Neck: Neck: Yes normal visual inspection, Yes full ROM, Yes no lymphadenopathy and Yes no meningeal signs Chest: Chest palpation & inspection: normal inspection of the chest Resp: Effort & Inspection: normal respiratory effort Auscultation: clear to auscultation bilaterally Cardio: Rate: regular rate Rhythm: regular rhythm Peripheral pulses: Peripheral pulses 2+ throughout GI: Inspection: Yes normal to inspection Palpation (GI): Soft to palpation and nontender Auscultation: normal bowel sounds : General: Yes no CVA tenderness Back/Spine/Pelvis: Back: no CVA tenderness Thoracic/Lumbar Spine: thoracic and lumbar spine normal to inspection Skin: General skin exam: no rashes or lesions noted Neuro: Other: Non focal exam with no neurological deficits. strength is 5/5 in all extremities General: patient oriented x3, moves all extremities, no meningeal signs and confusion Cranial nerves: Yes CN's II-XII intact bilaterally, Yes Equal, round and reactive pupils present, Yes Bilaterally intact EOM present, Yes Nystagmus not present, Yes Normal facial strength present and Yes Midline tongue present Cognition (Neuro): normal cognition Speech: No Abnormal speech present Gait exam (Neuro): Normal gait present Motor exam (neuro): 5/5 motor strength present throughout Sensory Exam: Normal double simultaneous stimulation for sensation Coordination: [id number] test normal and tandem gait normal Extrem: General: Yes normal to inspection, Yes no pedal edema and Yes no calf tenderness Results Labs CBC & Chem 7: 03/12/22 06:15 03/12/22 06:15 Labs: Short CBC 03/11/22 03/12/22 Range/Units 18:30 06:15 WBC 6.2 6.1 (4.8-10.8) X10*3/uL Hgb 9.0 L 9.4 L (14.0-18.0) g/dl Hct 28.8 L 30.0 L (42.0-52.0) % Plt Count 346 388 (160-400) X10*3/uL BMP 03/11/22 03/12/22 18:30 06:15 Sodium 143 140 Potassium 4.3 4.4 Chloride 108 107 Carbon Dioxide 29 21 L BUN 22 H 16 Creatinine 0.97 0.93 Calcium 9.4 D 9.7 Liver Function 03/11/22 Range/Units 18:30 Total Bilirubin 0.3 (0.0-1.0) mg/dL Direct Bilirubin < 0.2 (0.0-0.5) mg/dL AST 12 (5-37) U/L ALT 13 (0-40) U/L Alkaline Phosphatase 85 (39-117) U/L Albumin 3.5 (3.5-5.0) g/dL Assessment and Plan (1) CVA (cerebral vascular accident): Status: Acute 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 . No acute stroke. RecommendationHer: Aspirin 81 mg a day control of blood pressure. Atorvastatin 40 mg a day. Continued use of CPAP for obstructive sleep apnea. He can be discharged. Plan d#2 66yo M with preDM, HFpEF, HTN, GERD, gout, esophageal varices presenting with episode of confusion/word finding difficulty that has largely resolved. 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 Procedures Date of Service Date of Service: 03/12/22
[2022-03-12 15:48] LABS: Iron 19 mcg/dL (45-160); Percent Iron Saturation 10 % (15-50); Total Iron Binding Capacity 196 mcg/dL (228-428); Unsaturated Iron Binding 177 ug/dL
[2022-03-12 16:03] LABS: Ferritin 472 ng/mL (20-250)
[2022-03-12 16:32] VITALS: BP 138/73; PULSE 68; RESP 16; TEMP 36.3; O2SAT 98
== END 2022-03-12 17:06 | disposition home or self-care (01) | DRG 723 ==
LOC: HO.ED 19:12 → HO.EDOVER 22:20
PROVIDERS: Nurse Practitioner Family; Physician Assistant Medical; Admitting Provider Internal Medicine; Emergency Provider Internal Medicine; PCP Internal Medicine; Visit Provider Family Medicine
DX: B34.9 Viral infection, unspecified (principal); I11.0 Hypertensive heart disease with heart failure; I50.32 Chronic diastolic (congestive) heart failure; M10.9 Gout, unspecified; D50.9 Iron deficiency anemia, unspecified; R90.82 White matter disease, unspecified; K52.9 Noninfective gastroenteritis and colitis, unspecified; K21.9 Gastro-esophageal reflux disease without esophagitis; G47.33 Obstructive sleep apnea (adult) (pediatric); Z20.822 Contact with and (suspected) exposure to COVID-19; Z88.8 Allergy status to other drugs, medicaments and biological substances; Z79.82 Long term (current) use of aspirin; Z79.899 Other long term (current) drug therapy
CPT/HCPCS: 0241U; 36415; 70450; 70496; 70498; 70551; 71046; 80048; 80061; 80076; 82607; 82728; 82746; 82947; 83036; 83540; 83735; 83880; 84484; 85025; 92610; 93005; 93306; 97162; 97165; 99222; 99284; Q9957; Q9967

== ENCOUNTER 2022-03-14 14:10 | Outpatient (REF) | payer BC, SELFPAY ==
[2022-03-14 14:29] LABS: MANUAL DIFF FLAG NO
[2022-03-14 14:40] LABS: Basophils Percent Auto 0.3 % (0-2); Eosinophils Absolute Auto 0.4 X10*3/uL (0.0-0.4); Hematocrit 32.4 % (42.0-52.0); Imm Gran Abs Auto 0.02 X10*3/uL (0.00-0.03); Imm Gran Pct Auto 0.3 % (0.0-0.4); Lymphocytes Absolute Auto 1.3 X10*3/uL (1.2-4.9); Lymphocytes Percent Auto 18.8 % (20-40); Mean Corpuscular HGB Conc 30.9 g/dl (31.0-36.0); Mean Corpuscular Hemoglobin 24.9 pg (27.0-33.0); Mean Corpuscular Volume 80.6 fL (80.0-98.0); Mean Platelet Volume 9.4 fL (9.4-12.4); Monocytes Absolute Auto 0.5 X10*3/uL (0.1-1.2); Monocytes Percent Auto 7.6 % (2-11); Neutrophils Absolute Auto 4.8 x10*3/uL (2.0-8.3); Platelet Count 416 X10*3/uL (160-400); Red Blood Count 4.02 X10*6/uL (4.60-5.80); Red Cell Distribution Width 14.5 % (11.0-16.0)
[2022-03-14 15:05] LABS: C Reactive Protein 5.92 mg/dL (< or = 0.50)
[2022-03-14 15:13] LABS: Anion Gap 13 (12-20); Blood Urea Nitrogen 23 mg/dL (9-16); Calcium 9.9 mg/dL (8.4-10.2); Carbon Dioxide 27 mmol/L (22-29); Chloride 107 mmol/L (96-108); Estimated Glomerular Filt Rate 59; Glucose Random 106 mg/dL (60-115); Sodium 142 mmol/L (135-145)
[2022-03-14 15:25] LABS: TSH reflex Free T4 3.14 uIU/mL (0.32-4.0)
[2022-03-14 15:33] LABS: Erythrocyte Sedimentation Rate 89 MM/HR (0-15)
[2022-03-14 15:34] LABS: Vitamin B12 542 pg/mL (200-900)
[2022-03-19 16:13] LABS: Vitamin D 25-OH, D2 <4 ng/mL; Vitamin D 25-OH, D3 26 ng/mL; Vitamin D 25-OH, Total 26 ng/mL (30-100)
== END 2022-03-14 14:11 | disposition home or self-care (01) ==
LOC: HO.LAB 14:10
PROVIDERS: PCP Internal Medicine; Visit Provider Orthopaedic Surgery
DX: D64.9 Anemia, unspecified (principal); G60.9 Hereditary and idiopathic neuropathy, unspecified; I10 Essential (primary) hypertension; I25.10 Atherosclerotic heart disease of native coronary artery without angina pectoris; I50.812 Chronic right heart failure; I77.810 Thoracic aortic ectasia; M10.9 Gout, unspecified; R73.03 Prediabetes; E66.01 Morbid (severe) obesity due to excess calories
CPT/HCPCS: 36415; 80048; 82306; 82607; 84443; 85025; 85652; 86140

== ENCOUNTER → 2022-03-15 11:46 | Outpatient (BNVA) | payer BC, SELFPAY | PROVIDERS: PCP Internal Medicine; Visit Provider Orthopaedic Surgery | DX: Z13.89 Encounter for screening for other disorder (principal) ==

== ENCOUNTER 2022-03-31 21:29 | Emergency (ER) | payer BC, SELFPAY ==
--- NOTE | ~2022-03-31 | XR_ITS ---
EXAMINATION: XR KNEE, RIGHT CLINICAL INFORMATION: R knee cyst cellulitis sp tkr COMPARISON: IUD 03/01/2022 TECHNIQUE: Three views of the right knee. FINDINGS: Status post right knee replacement. 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 This is unchanged since 03/01/2022. The osteolysis seen adjacent to the patellar prosthesis on the prior exam is not seen on this exam. No sunrise view was obtained today. There is also osteolysis now seen adjacent to the femoral component at the medial side of the bone. This was not seen on the prior exam. There is prepatellar soft tissue swelling at the infrapatellar region. This is similar prior exam. XR/XR knee RT 2V IMPRESSION: 1. Status post right knee replacement. 2. 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 3. There is also osteolysis now seen adjacent to the femoral component of the prosthesis at the medial side of the bone. This was not seen on the prior exam.
[2022-03-31 21:50] VITALS: BP 110/60; PULSE 64; RESP 16; TEMP 36; O2SAT 95; BMI 33.5
[2022-03-31 23:06] LABS: MANUAL DIFF FLAG NO
[2022-03-31 23:08] LABS: Basophils Absolute Auto 0.1 X10*3/uL (0.0-0.2); Basophils Percent Auto 0.6 % (0-2); Eosinophils Absolute Auto 0.4 X10*3/uL (0.0-0.4); Eosinophils Percent Auto 4.8 % (0-4); Hematocrit 29.4 % (42.0-52.0); Hemoglobin 9.1 g/dl (14.0-18.0); Imm Gran Abs Auto 0.02 X10*3/uL (0.00-0.03); Imm Gran Pct Auto 0.2 % (0.0-0.4); Lymphocytes Absolute Auto 1.6 X10*3/uL (1.2-4.9); Lymphocytes Percent Auto 18.5 % (20-40); Mean Corpuscular Hemoglobin 24.5 pg (27.0-33.0); Mean Corpuscular Volume 79.2 fL (80.0-98.0); Mean Platelet Volume 9.9 fL (9.4-12.4); Monocytes Absolute Auto 0.9 X10*3/uL (0.1-1.2); Monocytes Percent Auto 9.6 % (2-11); Neutrophils Absolute Auto 5.9 x10*3/uL (2.0-8.3); Neutrophils Percent Auto 66.3 % (45-73); Platelet Count 347 X10*3/uL (160-400); Red Blood Count 3.71 X10*6/uL (4.60-5.80); Red Cell Distribution Width 14.9 % (11.0-16.0); White Blood Count 8.9 X10*3/uL (4.8-10.8)
[2022-03-31 23:28] LABS: Alanine Aminotransferase 11 U/L (0-40); Albumin Level 3.5 g/dL (3.5-5.0); Alkaline Phosphatase 98 U/L (39-117); Anion Gap 14 (12-20); Aspartate Amino Transferase 18 U/L (5-37); Bilirubin Total 0.5 mg/dL (0.0-1.0); Blood Urea Nitrogen 20 mg/dL (9-16); Calcium 9.4 mg/dL (8.4-10.2); Carbon Dioxide 25 mmol/L (22-29); Chloride 104 mmol/L (96-108); Creatinine Clr Calc Pharmacy 76.7; Estimated Glomerular Filt Rate > 60; Glucose Random 141 mg/dL (60-115); Potassium 4.8 mmol/L (3.3-5.1); Sodium 138 mmol/L (135-145); Total Protein 6.7 g/dL (6.5-8.0)
[2022-03-31 23:54] VITALS: BP 128/69; PULSE 55; RESP 18; TEMP 36.9; O2SAT 97
--- NOTE | 2022-03-31 23:54 | ED_ITS ---
HPI - Wound/Laceration General Chief Complaint: Wound/Laceration Stated Complaint: R Knee Cyst Time Seen by Provider: 03/31/22 23:20 Source: patient Mode of arrival: ambulatory Limitations: no limitations History of Present Illness HPI narrative: This is a 66-year-old male history of CVA, TIA, anemia, obesity, C diff, osteoarthritis, gout, IBS, hypertension, prediabetes status post total knee on 04/03/21 by presenting to the emergency department with complaints of right knee pain worsening over the past 3 weeks, however patient reports rapidly progressing cellulitis over the right knee with abscess formation that has been draining at home x2 days. Patient tells me he has now having pain when he bends his knee which he was not having before. He tells me he feels like he has limited range of motion to the right knee. Denies fevers, chills, numbness, tingling, chest pain, shortness of breath, nausea, vomiting, abdominal pain. Related Data Home Medications Medication Instructions Recorded Confirmed dorzolamide 22.3 mg-timolol 6.8 1 drp ophthalmic (eye) BEDTIME 12/07/19 03/26/22 mg/mL eye drops latanoprost 0.005 % eye drops 1 drp ophthalmic (eye) BEDTIME 12/07/19 03/26/22 brimonidine 0.2 % eye drops 1 drp ophthalmic-Left BID 02/16/21 03/26/22 ascorbic acid (vitamin C) 500 mg 500 mg PO BID 04/03/21 03/26/22 chewable tablet (Vitamin C) diphenhydramine HCl 25 mg capsule 25 mg PO BEDTIME PRN Insomnia 04/03/21 03/26/22 (Benadryl) loperamide 2 mg tablet (Imodium 2 mg PO BID 04/03/21 03/26/22 A-D) multivitamin 1 tab PO DAILY 04/03/21 03/26/22 Previous Rx's Medication Instructions Recorded furosemide 20 mg tablet (Lasix) 20 mg PO DAILY #90 tabs 04/05/21 teds hose #2 ea 09/11/21 pantoprazole 40 mg tablet,delayed 40 mg PO DAILY 30 days #30 tabs 10/17/21 release gabapentin 300 mg capsule 300 mg PO BEDTIME 30 days #90 caps 11/22/21 allopurinol 300 mg tablet 300 mg PO DAILY #90 tabs 12/26/21 nifedipine 90 mg tablet,extended 90 mg PO DAILY #90 tabs 12/26/21 release 24 hr metoprolol succinate 200 mg 200 mg PO DAILY #90 tabs 01/17/22 tablet,extended release 24 hr indomethacin 50 mg capsule 50 mg PO TID PRN pain 30 days #60 02/15/22 caps aspirin 81 mg tablet,delayed 81 mg PO DAILY #30 tabs 03/12/22 release atorvastatin 80 mg tablet 80 mg PO BEDTIME #30 tabs 03/12/22 ferrous sulfate 325 mg (65 mg 325 mg PO ONCE 90 days #90 tabs 03/26/22 iron) tablet Allergies Allergy/AdvReac Type Severity Reaction Status Date / Time lisinopril [LISINOPRIL] Allergy Mild TONGUE Verified 03/26/22 14:04 SWELLING, CONFUSION Review of Systems Review of Systems: Constitutional : No Weight loss, No Fever, No Chills, No Fatigue, No Malaise ENT/Mouth : No sore throat, No Rhinorrhea Eyes: No Eye Pain, No Swelling, No Redness Cardiovascular : No Chest Pain, No SOB, No Dyspnea on Exertion, No Orthopnea, No Edema, No Palpitations Respiratory : No Cough, No Sputum, No Wheezing Gastrointestinal : No Nausea, No Vomiting, No Diarrhea, No Constipation, No abdominal Pain, No Hematochezia, No Melena Genitourinary : No Dysuria, No Urinary Frequency, No Hematuria, Musculoskeletal : + joint pain, No Myalgias, + Joint Swelling Skin : No Skin Lesions, No rash Neuro : No Weakness, No Numbness, No Dizziness, No Headache Psych : No Anxiety/Panic, No Depression All other systems reviewed and are negative Yes all other systems are reviewed and are negative [facility] Past Medical History Attestation statement: The following information was validated with the patient. Source: old records reviewed and nursing notes reviewed Medical History Arthritis Ascending aorta dilation Back pain Chronic diarrhea Chronic heart failure with preserved ejection fraction (HFpEF) Chronic right heart failure Diarrhea Esophageal varices Essential hypertension GERD (gastroesophageal reflux disease) Gout Hiatal hernia History of alcoholism History of esophageal varices History of GI bleed History of Putuv-Zrddqpecb-Lwzhw (WPW) syndrome HTN (hypertension) Idiopathic peripheral neuropathy Lumbar spondylosis Morbid obesity Nocturnal hypoxemia Obesity (BMI 30-39.9) Obesity (BMI 30-39.9) VY (obstructive sleep apnea) VY (obstructive sleep apnea) Pre-diabetes Shoulder injury Surgical History H/O cardiac radiofrequency ablation History of colonoscopy History of esophagogastroduodenoscopy (EGD) Family History Family History Father Diabetes mellitus Social History Social History Household Members: Other Household Members Other:: girlfriend and a brother Housing: House Are you a primary progressive care nurse to a significant other at home: No Do you presently have visiting nurse or other home services: No Alcohol intake: former Year quit: 1998 Patient Tobacco Use Status: Never used Tobacco e-Cigarette/Vaping Use: Never Used Second Hand Smoke Exposure: No Advance Directives: Yes Advance Directives on File: Yes Advance Directives Date on File: 05/03/20 service: No Current occupational status: retired 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 Oriented X3.? No acute distress.? Head: Normocephalic, atraumatic, no step-offs or deformities Eyes: Pupils equal, round and reactive to light.? CVS: Normal heart rate and rhythm.? Pulses normal.? Respiratory: No respiratory distress.? Breath sounds normal.? Abdomen: Soft and nontender.? Skin: Skin warm and dry.? Normal skin color.? Normal skin turgor.? Extremities: No lower extremity edema.? No calf ttp. 5/5 strength to bilateral upper and lower extremities. Limited range of motion to right knee secondary to pain. Normal range of motion to left knee. 2+ popliteal pulses, dorsalis pedis, anterior tibialis and posterior tibialis pulses equal bilateral. There appears to be some wound dehiscence to the right knee to area where TKR was done, with overlying abscess formation 2cm X 2 cm that appears to be actively draining, area is fluctuant 2cm X 2 cm. This area has overlying erythema and warmth. Normal left knee. Neuro: Oriented X 3.? No motor deficit.? No sensory deficit. CN 2-12 intact Course Reevaluation(s) Reevaluation #1: Incision and drainage was done to the superficial abscess, very small amount of pus was obtained, pus was sent for culture and sensitivity. Blood cultures were also obtained. I did reach out to the orthopedic team, pending the response. Time: 00:05 Reevaluation #2: I spoke to Orthopedics Mariah who would like antibiotics held in case patient needs a special aspiration of the joint to determine if there is a deeper infection. She is requesting patient's stay in the emergency department overnight in they will see him 1st thing tomorrow morning. Time: 00:25 Reevaluation #3: CC appears to be around patient's baseline with a microcytic anemia. Chemistry with no acute findings requiring intervention. Negative lactic acid. X-ray of the knee pending. 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 At this time patient will be placed in observation until Orthopedics evaluates the patient. Medical Decision Making Medical Decision Making [facility] Narrative: 0000 66-year-old male presents with redness, swelling, painful range of motion to right knee and overlying abscess formation x2 days. Denies fevers and chills. History of TKA on 04/03/2021. Physical exam significant for No lower extremity edema.? No calf ttp. 5/5 strength to bilateral upper and lower extremities. Limited range of motion to right knee secondary to pain. Normal range of motion to left knee. 2+ poplite al pulses, dorsalis pedis, anterior tibialis and posterior tibialis pulses equal bilateral. There appears to be some wound dehiscence to the right knee to area where TKR was done, with overlying abscess 2cm X 2 cm formation that appears to be actively draining, area is fluctuant 2cm X 2 cm. This area has overlying erythema and warmth. Normal left knee. Most likely abscess with overlying cellulitis. Also some concern for wound dehiscence. Other differentials include prepatellar bursitis. Based off history, physical exam unlikely that this is septic joint however this could turn into septic joint if untreated. Plan at this time is superficial incision and drainage abscess. Will obtain x- ray to rule out osteomyelitis. Will reach out to Orthopedics to make him aware of the situation however I feel as though this patient will require hospital admission Differential Diagnosis Differential Diagnoses: The differential diagnosis associated with the presentation includes Most likely abscess with overlying cellulitis. Also some concern for wound dehiscence. Other differentials include prepatellar bursitis. Based off history, physical exam unlikely that this is septic joint however this could turn into septic joint if untreated. Admission/Observation Consideration of admission/observation: Escalation of care including admission/observation considered [facility] Consult Healthcare Provider Management of the patient was discussed with: Health Care Marketing Specialist Lab Data [facility] Lab Attestation statement: I reviewed the patient's lab results. 03/31/22 23:01 03/31/22 23:01 Labs: Lab Results 03/31/22 03/31/22 03/31/22 Range/Units 23:01 23:01 23:41 WBC 8.9 (4.8-10.8) X10*3/uL RBC 3.71 L (4.60-5.80) X10*6/uL Hgb 9.1 L (14.0-18.0) g/dl Hct 29.4 L (42.0-52.0) % MCV 79.2 L (80.0-98.0) fL MCH 24.5 L (27.0-33.0) pg MCHC 31.0 (31.0-36.0) g/dl RDW 14.9 (11.0-16.0) % Plt Count 347 (160-400) X10*3/uL MPV 9.9 (9.4-12.4) fL Immature Gran % (Auto) 0.2 (0.0-0.4) % Neut % (Auto) 66.3 (45-73) % Lymph % (Auto) 18.5 L (20-40) % [place] % (Auto) 9.6 (2-11) % Eos % (Auto) 4.8 H (0-4) % Baso % (Auto) 0.6 (0-2) % Lymph # (Auto) 1.6 (1.2-4.9) X10*3/uL [place] # (Auto) 0.9 (0.1-1.2) X10*3/uL Eos # (Auto) 0.4 (0.0-0.4) X10*3/uL Baso # (Auto) 0.1 (0.0-0.2) X10*3/uL Abs Immat Gran (auto) 0.02 (0.00-0.03) X10*3/uL Absolute Neuts (auto) 5.9 (2.0-8.3) x10*3/uL Absolute Nucleated RBC 0.000 (0.0-0.012) X10*3/uL Nucleated RBC % (auto) 0.0 (0.0-0.2) /100WBC Sodium 138 (135-145) mmol/L Potassium 4.8 (3.3-5.1) mmol/L Chloride 104 (96-108) mmol/L Carbon Dioxide 25 (22-29) mmol/L Anion Gap 14 (12-20) BUN 20 H (9-16) mg/dL Creatinine 1.12 (0.5-1.4) mg/dL Estim Creat Clear Calc 76.7 Estimated GFR > 60 Random Glucose 141 H (60-115) mg/dL Lactic Acid 0.6 (0.5-2.0) mmol/L Calcium 9.4 (8.4-10.2) mg/dL Total Bilirubin 0.5 (0.0-1.0) mg/dL AST 18 (5-37) U/L ALT 11 (0-40) U/L Alkaline Phosphatase 98 (39-117) U/L Total Protein 6.7 (6.5-8.0) g/dL Albumin 3.5 (3.5-5.0) g/dL Independent Interpretation I performed an independent interpretation of an: Plain X-Ray Radiology Impression Discussion of test interpretation with radiology: I have reviewed the radi ologist's reading. Chronic Conditions Patient?s care impacted by: Hypertension Core Measures AMI core measures followed: Yes Measure exclusions: not indicated Critical Care Time Critical Care Time Critical Care Time: Yes Total Critical Care Time: 35 Attestation: I attest to this time spent taking care of the patient, obtaining history, phys ical, reviewing labs, imaging, speaking to my attending, speaking to specialist. Discharge Plan Discharge Clinical Impression: Acute pain of right knee, Abscess, Bursitis, prepatellar, right Patient Disposition: Still a Patient Prescriptions: No Action furosemide [Lasix] 20 mg tablet 20 mg PO DAILY Qty: 90 3RF (DME) teds hose See Rx Instructions .Route .MEDSUPPLY Qty: 2 0RF Rx Instructions: As directed pantoprazole 40 mg tablet,delayed release (DR/EC) 40 mg PO DAILY 30 Days Qty: 30 6RF gabapentin 300 mg capsule 300 mg PO BEDTIME 30 Days Qty: 90 0RF nifedipine 90 mg tablet extended release 24hr 90 mg PO DAILY Qty: 90 3RF Hold Instructions: Hypotension allopurinol 300 mg tablet 300 mg PO DAILY Qty: 90 1RF metoprolol succinate 200 mg tablet extended release 24 hr 200 mg PO DAILY Qty: 90 3RF indomethacin 50 mg capsule 50 mg PO TID PRN (Reason: pain) 30 Days Qty: 60 2RF latanoprost 0.005 % drops 1 drp ophthalmic (eye) BEDTIME dorzolamide-timolol 22.3-6.8 mg/mL drops 1 drp ophthalmic (eye) BEDTIME aspirin 81 mg Tablet,Delayed Release (Dr/Ec) 81 mg PO DAILY Qty: 30 0RF atorvastatin 80 mg tablet 80 mg PO BEDTIME Qty: 30 0RF multivitamin Tablet 1 tab PO DAILY loperamide [Imodium A-D] 2 mg Tablet 2 mg PO BID diphenhydramine HCl [Benadryl] 25 mg Capsule 25 mg PO BEDTIME PRN (Reason: Insomnia) ascorbic acid (vitamin C) [Vitamin C] 500 mg Tablet,Chewable 500 mg PO BID ferrous sulfate 325 mg (65 mg iron) tablet 325 mg PO ONCE 90 Days Qty: 90 0RF brimonidine 0.2 % drops 1 drp ophthalmic-Left BID
[2022-03-31 23:59] LABS: Lactic Acid 0.6 mmol/L (0.5-2.0)
[2022-04-01 01:25] LABS: COVID-19 Test Negative (Negative); IDNOW Serial# 6674DD1D
[2022-04-01 02:23] VITALS: BP 125/67; PULSE 57; RESP 18; TEMP 36.9; O2SAT 98
[2022-04-01 05:15] VITALS: BP 103/61; PULSE 59; RESP 18; TEMP 37; O2SAT 98
[2022-04-01 05:59] VITALS: BP 109/64; PULSE 58; RESP 17; TEMP 36.9; O2SAT 98
[2022-04-01 07:36] VITALS: BP 108/61; PULSE 65; RESP 18; O2SAT 95
--- NOTE | 2022-04-01 07:47 | PC.NURSE ---
PT A+O x4, VSS, DENIES PAIN. PT NPO, AWAITING ORTHO CONSULT. PT AWARE OF PLAN. RESTING QUIETLY, NO COMPLAINTS.
--- NOTE | 2022-04-01 08:16 | PC.NURSE ---
PT SEEN BY ORTHO. PLAN TO DISCHARGE AND FOLLOW UP IN THE OFFICE. PT AWARE OF PLAN.
--- NOTE | 2022-04-01 08:31 | PM.CNOR ---
History of Present Illness HPI Consult date: 04/01/22 Chief complaint: R Knee Cyst Narrative: 66 yo male presents to the ED with worsening right knee pain and swelling that has worsened over the last 3 weeks. He was last seen in our office by Dr Chavarria in February, he had c/o pain and swelling at that time but there was so evidence of active infection. Xrays suspected loosening of the prosthesis. He was recently hospitalized for cardiac issues and the plan was to continue to watch the knee while recovering from his cardiac problem. While in the ED the provider was able to express some puss from the wound. WBC count in the ED 8.9, cultures of the wound gram stain negative for organisms at this time. Blood cx pending. VSS. Orthopedics was consulted for further recommendations. Review of Systems Review of Systems: per hpi [facility] Past Medical History Medical History Arthritis Ascending aorta dilation Back pain Chronic diarrhea Chronic heart failure with preserved ejection fraction (HFpEF) Chronic right heart failure Diarrhea Esophageal varices Essential hypertension GERD (gastroesophageal reflux disease) Gout Hiatal hernia History of alcoholism History of esophageal varices History of GI bleed History of Bqaon-Nqpkvlfyo-Dwmmz (WPW) syndrome HTN (hypertension) Idiopathic peripheral neuropathy Lumbar spondylosis Morbid obesity Nocturnal hypoxemia Obesity (BMI 30-39.9) Obesity (BMI 30-39.9) VY (obstructive sleep apnea) VY (obstructive sleep apnea) Pre-diabetes Shoulder injury Family History Family History Father Diabetes mellitus Surgical History Surgical History H/O cardiac radiofrequency ablation History of colonoscopy History of esophagogastroduodenoscopy (EGD) Social History Social History Household Members: Other Household Members Other:: girlfriend and a brother Housing: House Are you a primary family member caretaker to a significant other at home: No Do you presently have visiting nurse or other home services: No Alcohol intake: former Year quit: 1998 Patient Tobacco Use Status: Never used Tobacco e-Cigarette/Vaping Use: Never Used Second Hand Smoke Exposure: No Advance Directives Date on File: 05/03/20 service: No Current occupational status: retired 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 Cognitive needs: No Hearing needs: No Vision needs: Yes Meds Allergies Allergy/AdvReac Type Severity Reaction Status Date / Time lisinopril [LISINOPRIL] Allergy Mild TONGUE Verified 03/26/22 14:04 SWELLING, CONFUSION Home Medications Medication Instructions Recorded Confirmed Last Taken Type dorzolamide 22.3 mg-timolol 6.8 1 drp ophthalmic (eye) BEDTIME 12/07/19 03/26/22 04/02/21 History mg/mL eye drops latanoprost 0.005 % eye drops 1 drp ophthalmic (eye) BEDTIME 12/07/19 03/26/22 03/11/22 History brimonidine 0.2 % eye drops 1 drp ophthalmic-Left BID 02/16/21 03/26/22 03/11/22 History ascorbic acid (vitamin C) 500 mg 500 mg PO BID 04/03/21 03/26/22 03/11/22 History chewable tablet (Vitamin C) diphenhydramine HCl 25 mg capsule 25 mg PO BEDTIME PRN Insomnia 04/03/21 03/26/22 Unknown History (Benadryl) loperamide 2 mg tablet (Imodium 2 mg PO BID 04/03/21 03/26/22 Unknown History A-D) multivitamin 1 tab PO DAILY 04/03/21 03/26/22 03/11/22 History Physical Exam Vital Signs: Vital Signs: Last Vital Signs Temp 98.5 F 04/01/22 05:59 Pulse 65 04/01/22 07:36 Resp 18 04/01/22 07:36 BP 108/61 04/01/22 07:36 Pulse Ox 95 04/01/22 07:36 O2 Del Method 04/01/22 07:36 BMI result Body Mass Index 33.5 Extrem: Other: overlying abscess 2cm X 2 cm formation that appears to be actively draining, area is fluctuant 2cm X 2 cm along the inferior aspect of the incision.? This area has overlying erythema and warmth.?He is able to extend the knee and bend to 45. Normal left knee. Results Labs 03/31/22 23:01 03/31/22 23:01 Labs: Abnormal lab results 03/31/22 03/31/22 Range/Units 23:01 23:01 RBC 3.71 L (4.60-5.80) X10*6/uL Hgb 9.1 L (14.0-18.0) g/dl Hct 29.4 L (42.0-52.0) % MCV 79.2 L (80.0-98.0) fL MCH 24.5 L (27.0-33.0) pg Lymph % (Auto) 18.5 L (20-40) % Eos % (Auto) 4.8 H (0-4) % BUN 20 H (9-16) mg/dL Random Glucose 141 H (60-115) mg/dL H & H 03/31/22 Range/Units 23:01 Hgb 9.1 L (14.0-18.0) g/dl Hct 29.4 L (42.0-52.0) % All other labs normal. Diagnostic results Knee x-ray: image reviewed (IMPRESSION: 1. Status post right knee replacement. 2. 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 3. There is also osteolysis now seen adjacent to the femoral component of the prosthesis at the medial side of the bone. This was not seen on the prior exam.) Assessment and Plan (1) Abscess: Status: Acute (2) History of total right knee replacement: Status: Acute (3) Loosening of prosthesis of right total knee replacement: Status: Acute Plan The case was discussed with Dr Chavarria. At this time we are going to hold off on abx so we can obtain more accurate cultures from within the joint if necessary. There is no evidence of sepsis or need for inpatient admission. He will see us in the clinic later this afternoon for further evaluation and planning to proceed with the next step in his care. The patient is content with this plan. Time Spent With Patient Time: Total time managing care of this patient today ____ minutes. Procedures Date of Service Date of Service: 04/01/22
== END 2022-04-01 08:53 | disposition home or self-care (01) ==
PROVIDERS: Physician Assistant; Emergency Provider Internal Medicine; PCP Internal Medicine
DX: L02.91 Cutaneous abscess, unspecified (principal); M71.561 Other bursitis, not elsewhere classified, right knee; Z96.651 Presence of right artificial knee joint; Z20.822 Contact with and (suspected) exposure to COVID-19; Z79.899 Other long term (current) drug therapy
CPT/HCPCS: 36415; 73560; 80053; 83605; 85025; 87040; 87070; 87077; 87186; 87205; 87635; 96374; 99284

== ENCOUNTER 2022-04-01 09:20 | Outpatient (REF) | payer BC, SELFPAY | END 2022-04-01 09:21 | disposition home or self-care (01) | LOC: CF 09:20 | PROVIDERS: PCP Internal Medicine; Visit Provider Orthopaedic Surgery | DX: T84.032A Mechanical loosening of internal right knee prosthetic joint, initial encounter (principal); M25.561 Pain in right knee; X58.XXXA Exposure to other specified factors, initial encounter; Y93.9 Activity, unspecified; Y92.9 Unspecified place or not applicable; Y99.9 Unspecified external cause status | CPT/HCPCS: 87070; 87077; 87186; 87205 ==

== ENCOUNTER 2022-04-02 10:21 | Outpatient (REF) | payer BC, SELFPAY ==
--- NOTE | ~2022-04-02 | CT_ITS ---
EXAMINATION: CT ANGIOGRAM CHEST CLINICAL INFORMATION: Thoracic aortic ectasia. COMPARISON: CTA chest 07/23/2021. TECHNIQUE: Multiple axial images were obtained through the chest after the administration of 70 mL of Omnipaque 350 intravenous contrast. Extensive vascular post-processing including two-dimensional and three-dimensional reformatted images were created and reviewed on an independent workstation. This CT examination was performed using dose optimization techniques as appropriate, variously including the following: *Automated exposure control *Adjustment of mA and/or kV according to patient size (this includes techniques or standardized protocols for targeted exams where dose is matched to indication/reason for exam; i.e. extremities or head) *Use of iterative reconstruction technique DLP: 211 mGy-cm FINDINGS: The ascending aorta measures 4.8 x 4.7 cm without significant change from previous 4.7 x 4.7 cm. The aortic arch and descending thoracic aorta are normal in caliber. There is mild scattered atherosclerotic disease of the aorta. Three-vessel branching pattern off the arch. The great vessels are patent. Three-vessel coronary calcium. No mediastinal, hilar, or axillary adenopathy. No pericardial effusion. Motion artifact limits pulmonary assessment. No suspicious lung nodules. Scarring in the lingula and middle lobe. The upper abdomen is unremarkable. Degenerative changes in the spine. CT/CT angio chest aorta IMPRESSION: Stable ascending aortic aneurysm measuring 4.8 x 4.7 cm compared to 4.7 x 4.7 cm. Fleischner guidelines were followed.
[2022-04-02] MEDS: iohexoL 350 MG/ML 100 ML INFUS..BTL IV (11:24)
== END 2022-04-02 10:22 | disposition home or self-care (01) ==
LOC: HO.CT 10:21
PROVIDERS: PCP Internal Medicine; Visit Provider Internal Medicine
DX: I77.810 Thoracic aortic ectasia (principal)
CPT/HCPCS: 71275; Q9967

== ENCOUNTER → 2022-04-08 13:39 | Outpatient (BNVA) | payer BC, SELFPAY | PROVIDERS: PCP Internal Medicine; Visit Provider Orthopaedic Surgery | DX: Z13.89 Encounter for screening for other disorder (principal) ==

== ENCOUNTER → 2022-04-09 13:52 | Outpatient (BNVA) | payer BC, SELFPAY | PROVIDERS: PCP Internal Medicine; Visit Provider Orthopaedic Surgery | DX: T81.49XD Infection following a procedure, other surgical site, subsequent encounter (principal) ==

== ENCOUNTER → 2022-04-11 14:02 | Outpatient (BNVA) | payer BC, SELFPAY | PROVIDERS: PCP Internal Medicine; Visit Provider Orthopaedic Surgery | DX: Z13.89 Encounter for screening for other disorder (principal) ==

== ENCOUNTER → 2022-04-15 09:53 | Outpatient (BNVA) | payer BC, SELFPAY | PROVIDERS: PCP Internal Medicine; Visit Provider Internal Medicine Gastroenterology | DX: Z13.89 Encounter for screening for other disorder (principal) ==

== ENCOUNTER → 2022-04-18 12:21 | Outpatient (BNVA) | payer BC, SELFPAY | PROVIDERS: PCP Internal Medicine; Referring Provider Internal Medicine; Visit Provider Internal Medicine | DX: Z13.89 Encounter for screening for other disorder (principal) ==

== ENCOUNTER → 2022-05-02 13:22 | Outpatient (BNVA) | payer BC, SELFPAY | PROVIDERS: PCP Internal Medicine; Visit Provider Physician Assistant | DX: Z13.89 Encounter for screening for other disorder (principal) ==

== ENCOUNTER 2022-05-07 09:23 | Inpatient (IN) | payer MEDICARE, BC, SELFPAY ==
[2022-05-01 12:22] VITALS: BP 160/82; PULSE 64; RESP 20; O2SAT 96; BMI 34.4
[2022-05-01 13:43] LABS: MANUAL DIFF FLAG NO
[2022-05-01 14:52] LABS: Basophils Absolute Auto 0.1 X10*3/uL (0.0-0.2); Basophils Percent Auto 0.7 % (0-2); Eosinophils Absolute Auto 0.4 X10*3/uL (0.0-0.4); Eosinophils Percent Auto 5.8 % (0-4); Hematocrit 28.2 % (42.0-52.0); Hemoglobin 8.5 g/dl (14.0-18.0); Imm Gran Abs Auto 0.02 X10*3/uL (0.00-0.03); Imm Gran Pct Auto 0.3 % (0.0-0.4); Lymphocytes Absolute Auto 1.2 X10*3/uL (1.2-4.9); Lymphocytes Percent Auto 18.1 % (20-40); Mean Corpuscular HGB Conc 30.1 g/dl (31.0-36.0); Mean Corpuscular Hemoglobin 24.5 pg (27.0-33.0); Mean Corpuscular Volume 81.3 fL (80.0-98.0); Mean Platelet Volume 10.7 fL (9.4-12.4); Monocytes Absolute Auto 0.7 X10*3/uL (0.1-1.2); Monocytes Percent Auto 11.1 % (2-11); Neutrophils Absolute Auto 4.3 x10*3/uL (2.0-8.3); Platelet Count 320 X10*3/uL (160-400); Red Blood Count 3.47 X10*6/uL (4.60-5.80); Red Cell Distribution Width 16.5 % (11.0-16.0); White Blood Count 6.7 X10*3/uL (4.8-10.8)
[2022-05-01 15:39] LABS: MRSA Nasal PCR NEGATIVE (Negative); SA Nasal PCR NEGATIVE (Negative)
--- NOTE | 2022-05-06 10:53 | HO.ANESPROP2 ---
Documented by User: More Deutsch NP 05/06/22 10:55 HPI - Anesthesia Eval Consult details Narrative: 67yo M for Right Knee Total Revision (removal of prosthesis with insertion antibiotic spacer) s/p R TKA 03/2022 with Spinal/block Cardiac cleared PMFSH Active Problems Active Problems: All Active Problems (Updated 04/30/22 @ 11:05 by Muriel Howell RN) Glaucoma (Acute) Acute diastolic CHF (congestive heart failure) (Acute) Acute respiratory failure with hypoxia (Acute) C. difficile diarrhea (Acute) Diastolic dysfunction (Acute) Hospital discharge follow-up (Acute) C. difficile diarrhea (Acute) Coronary artery calcification seen on CAT scan (Acute) Knee pain, right (Acute) Osteoarthritis of right knee (Acute) Irritable bowel syndrome with diarrhea (Acute) Pre-op evaluation (Acute) Left ankle sprain (Acute) Fracture of distal end of left fibula (Acute) S/P knee replacement (Acute) Status post total right knee replacement (Acute) Encounter for general adult medical examination with abnormal findings (Acute) Anemia (Acute) Swelling of knee joint, right (Acute) Swelling of right lower extremity (Acute) Chronic right-sided heart failure (Acute) Viral infection (Acute) TIA (transient ischemic attack) (Acute) CVA (cerebral vascular accident) (Acute) Iron deficiency (Acute) History of total right knee replacement (Acute) Speech impairment (Acute) Bilateral impacted cerumen (Acute) Risk for falls (Acute) Loosening of prosthesis of right total knee replacement (Acute) Open wound (Acute) Preoperative cardiovascular examination (Acute) Chronic right heart failure (Acute) Nocturnal hypoxemia (Acute) VY (obstructive sleep apnea) (Acute) Obesity (BMI 30-39.9) (Acute) Chronic heart failure with preserved ejection fraction (HFpEF) (Acute) Essential hypertension (Acute) Ascending aorta dilation (Acute) VY (obstructive sleep apnea) (Acute) Obesity (BMI 30-39.9) (Acute) Shoulder injury (Acute) Lumbar spondylosis (Acute) Chronic diarrhea (Acute) Idiopathic peripheral neuropathy (Acute) Morbid obesity (Acute) Gout (Acute) HTN (hypertension) (Acute) Pre-diabetes (Acute) Past Medical History Medical History Arthritis Ascending aorta dilation Back pain Chronic diarrhea Chronic heart failure with preserved ejection fraction (HFpEF) Chronic right heart failure Diarrhea Essential hypertension GERD (gastroesophageal reflux disease) Gout Hiatal hernia History of alcoholism History of esophageal varices History of GI bleed History of TIA (transient ischemic attack) History of Ysosv-Ulntszihv-Nomsg (WPW) syndrome HTN (hypertension) Idiopathic peripheral neuropathy Lumbar spondylosis Morbid obesity Nocturnal hypoxemia Obesity (BMI 30-39.9) On beta miguel at home VY (obstructive sleep apnea) Pre-diabetes Shoulder injury Family History Family History Father Diabetes mellitus Family history of problems with anesthesia: No Surgical History Surgical History H/O cardiac radiofrequency ablation History of colonoscopy History of esophagogastroduodenoscopy (EGD) Hx of total knee replacement History of Problems with Anesthesia: No Social History Social History Household Members: Other Household Members Other:: Brother Housing: House Are you a primary foster care worker to a significant other at home: No Do you presently have visiting nurse or other home services: Yes ([facility]) Alcohol intake: former Year quit: 1998 Patient Tobacco Use Status: Never used Tobacco e-Cigarette/Vaping Use: Never Used Second Hand Smoke Exposure: Yes Use of substances other than those prescribed or required for medical reasons: No Substance Use Type Other:: Last - 1998 Have you been hit, kicked, punched, or otherwise hurt by someone within the past year? 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 Cognitive needs: No Hearing needs: No Vision needs: Yes Meds Allergies Allergy/AdvReac Type Severity Reaction Status Date / Time lisinopril [LISINOPRIL] Allergy Mild TONGUE Verified 05/07/22 10:37 SWELLING, CONFUSION Home Medications Medication Instructions Recorded Confirmed Last Taken Type dorzolamide 22.3 mg-timolol 6.8 1 drp ophthalmic (eye) BEDTIME 09/29/20 02/27/23 01/24/22 History mg/mL eye drops latanoprost 0.005 % eye drops 1 drp ophthalmic (eye) BEDTIME 12/07/19 05/06/22 03/11/22 History brimonidine 0.2 % eye drops 1 drp ophthalmic-Left BID 02/16/21 05/06/22 03/11/22 History ascorbic acid (vitamin C) 500 mg 500 mg PO BID 04/03/21 05/06/22 03/11/22 History chewable tablet (Vitamin C) diphenhydramine HCl 25 mg capsule 25 mg PO BEDTIME PRN Insomnia 04/03/21 05/06/22 Unknown History (Benadryl) loperamide 2 mg tablet (Imodium 2 mg PO BID 04/03/21 05/06/22 Unknown History A-D) multivitamin 1 tab PO DAILY 04/03/21 05/06/22 03/11/22 History ferrous sulfate 325 mg (65 mg 325 mg PO DAILY 05/01/22 05/06/22 05/06/22 History iron) tablet Exam Exam Date and Time: May 06, 2022 1053 Height,Weight and Vital Signs: Height 5 ft 9 in Weight 105.687 kg Last Vital Signs Pulse 64 05/01/22 12:22 Resp 20 05/01/22 12:22 BP 160/82 H 05/01/22 12:22 Pulse Ox 96 05/01/22 12:22 O2 Del Method 05/01/22 12:22 Pertinent Lab Results Pertinent Lab Results: Laboratory Tests 05/01/22 05/01/22 05/01/22 13:36 13:42 Unknown WBC 6.7 RBC 3.47 L Hgb 8.5 L Hct 28.2 L MCV 81.3 MCH 24.5 L MCHC 30.1 L RDW 16.5 H Plt Count 320 MPV 10.7 Immature Gran % (Auto) 0.3 Neut % (Auto) 64.0 Lymph % (Auto) 18.1 L [place] % (Auto) 11.1 H Eos % (Auto) 5.8 H Baso % (Auto) 0.7 Lymph # (Auto) 1.2 [place] # (Auto) 0.7 Eos # (Auto) 0.4 Baso # (Auto) 0.1 Abs Immat Gran (auto) 0.02 Absolute Neuts (auto) 4.3 Absolute Nucleated RBC 0.000 Nucleated RBC % (auto) 0.0 Nasal Screen MRSA (PCR) NEGATIVE Nasal S. aureus Screen NEGATIVE Nasal MRSA/S.aureus Interp SEE NOTE Blood Type A Positive Antibody Screen NEGATIVE Narrative Narrative: EKG 02/2021 Vent. Rate : 058 BPM ? ? Atrial Rate : 058 BPM ?? P-R Int : 164 ms? QRS Dur : 102 ms ? ? QT Int : 432 ms ? ? ? P-R-T Axes : 037 -36 007 degrees ?? QTc Int : 424 ms ? Sinus bradycardia Left axis deviation Borderline ECG No significant changes when compared with the previous EKG? of june 09, 2020 ECHO 02/2021 Conclusions: - 1. Normal LV systolic function with grade I diastolic? dysfunction? 2. Moderately dilated ascending aorta at 4.5 cm? 3. Mild AR ? 4. Normal RVSP ? 5. No gross pericardial effusion ?? NM cardiolite stress test 09/2020 Impression: ? 1.? Myocardial perfusion imaging study shows normal myocardial perfusion 2.? Gated LVEF is 60% 3. Transient ischemic dilatation not present ? EKG is nondiagnostic for ischemia Airway Mallampati Class: II (Small mouth) TM Dist: >3cm Neck ROM: Full Loose/Missing/Broken Teeth: Yes (Multiple missing and broken throughout) Assessment and Plan Assessment Anesthesia Assessment: Chart Reviewed Final Anesthetic Review Family History of Problems with Anesthesia: No History of Problems with Anesthesia: No Documented by User: Dwayne García MD 05/07/22 11:40 [facility] Past Medical History Medical History Arthritis Ascending aorta dilation Back pain Chronic diarrhea Chronic heart failure with preserved ejection fraction (HFpEF) Chronic right heart failure Diarrhea Essential hypertension GERD (gastroesophageal reflux disease) Gout Hiatal hernia History of alcoholism History of esophageal varices History of GI bleed History of TIA (transient ischemic attack) History of Xvaet-Ofvkyqabx-Umbcs (WPW) syndrome HTN (hypertension) Idiopathic peripheral neuropathy Lumbar spondylosis Morbid obesity Nocturnal hypoxemia Obesity (BMI 30-39.9) On beta miguel at home VY (obstructive sleep apnea) Pre-diabetes Shoulder injury Family History Family History Father Diabetes mellitus Surgical History Surgical History H/O cardiac radiofrequency ablation History of colonoscopy History of esophagogastroduodenoscopy (EGD) Hx of total knee replacement Social History Social History Household Members: Other Household Members Other:: Brother Housing: House Are you a primary foster care worker to a significant other at home: No Do you presently have visiting nurse or other home services: Yes ([facility]) Alcohol intake: former Year quit: 1998 Patient Tobacco Use Status: Never used Tobacco e-Cigarette/Vaping Use: Never Used Second Hand Smoke Exposure: Yes Use of substances other than those prescribed or required for medical reasons: No Substance Use Type Other:: Last - 1998 Have you been hit, kicked, punched, or otherwise hurt by someone within the past year? 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 Cognitive needs: No Hearing needs: No Vision needs: Yes Meds Allergies Allergy/AdvReac Type Severity Reaction Status Date / Time lisinopril [LISINOPRIL] Allergy Mild TONGUE Verified 05/07/22 10:37 SWELLING, CONFUSION Home Medications Medication Instructions Recorded Confirmed Last Taken Type dorzolamide 22.3 mg-timolol 6.8 1 drp ophthalmic (eye) BEDTIME 12/07/19 05/06/22 04/02/21 History mg/mL eye drops latanoprost 0.005 % eye drops 1 drp ophthalmic (eye) BEDTIME 12/07/19 05/06/22 03/11/22 History brimonidine 0.2 % eye drops 1 drp ophthalmic-Left BID 02/16/21 05/06/22 03/11/22 History ascorbic acid (vitamin C) 500 mg 500 mg PO BID 04/03/21 05/06/22 03/11/22 History chewable tablet (Vitamin C) diphenhydramine HCl 25 mg capsule 25 mg PO BEDTIME PRN Insomnia 04/03/21 05/06/22 Unknown History (Benadryl) loperamide 2 mg tablet (Imodium 2 mg PO BID 04/03/21 05/06/22 Unknown History A-D) multivitamin 1 tab PO DAILY 04/03/21 05/06/22 03/11/22 History ferrous sulfate 325 mg (65 mg 325 mg PO DAILY 05/01/22 05/06/22 05/06/22 History iron) tablet Assessment and Plan Final Anesthetic Review ASA Class: III Final Preanesthetic Review: No Changes in Pt Med Stat, Meds/Allgs Chart Reviewed, Consent Obtained/Reviewed and Anes Risks/Benef Reviewed Patient Risk: Intermediate Procedure Risk: Intermediate Anesthetic Plan Anesthetic Plan: Spinal and Regional Block (Adductor canal block) Disposition: Standard PACU
[2022-05-07] VITALS (19 sets, daily range): BP systolic 98–136; BP diastolic 53–70; PULSE 54–63; RESP 13–20; TEMP 36–36.7; O2SAT 93–97
[2022-05-07 10:13] LABS: COVID-19 Test Negative (Negative); IDNOW Serial# 16C4AD1C
[2022-05-07] MEDS: Lactated Ringers 1,000 ML 50 ML IVCONT (10:51)
[2022-05-07 10:57] LABS: Hematocrit 28.8 % (42.0-52.0)
--- NOTE | 2022-05-07 11:08 | PC.NURSE ---
Iv insertions by tricia dalal rn and north brewer rn
[2022-05-07] MEDS: vancomycin HCL 1,500 MG in 0.9 % Sodium Chloride 500 ML 333.33 MG IV (11:22)
[2022-05-07 11:36] LABS: Glucose, Whole Blood 121 mg/dL (60-115)
--- NOTE | 2022-05-07 12:20 | PC.NURSE ---
approx. 1200 patient stated my arm feels itchy at the IV site of where antibiotic was running. Dime sized raised, reddened area noted above tegaderm above IV site. Antibiotic stopped. Patient noted immediately relief. Dr. García notified. Decision made to slow antibiotic and that has been done with good result. Dr. García assessed area as well.
--- NOTE | 2022-05-07 14:33 | P.BOP_ITS ---
Brief Operative Note Date of Service: 05/07/22 Pre-op diagnosis: Infected right knee prosthesis Post-op diagnosis: same Procedure: Resection arthroplasty and placement of antibiotic articulating spacer Implants: Louis Phase One Surgeon: Julian Chavarria MD Anesthesia: GETA and regional Was an Quality Assurance Coach used for this Procedure?: Yes Quality Assurance Coach: Mariah Love Estimated blood loss (mL): 250 IV fluids (mL): 1,000 Pathology: other Condition: stable Disposition: PACU
[2022-05-07] MEDS: fentaNYL citrate/PF 100 MCG/2 ML VIAL 25 MCG IVPUSH ×4 (15:05→15:25)
[2022-05-07] MEDS: oxyCODONE HCl Immed Release 5 MG TABLET PO (15:35)
[2022-05-07 15:51] LABS: MANUAL DIFF FLAG NO
[2022-05-07 16:04] LABS: Basophils Percent Auto 0.6 % (0-2); Eosinophils Absolute Auto 0.4 X10*3/uL (0.0-0.4); Eosinophils Percent Auto 5.4 % (0-4); Hematocrit 29.2 % (42.0-52.0); Hemoglobin 9.1 g/dl (14.0-18.0); Imm Gran Abs Auto 0.08 X10*3/uL (0.00-0.03); Imm Gran Pct Auto 1.1 % (0.0-0.4); Lymphocytes Absolute Auto 1.8 X10*3/uL (1.2-4.9); Lymphocytes Percent Auto 25.4 % (20-40); Mean Corpuscular HGB Conc 31.2 g/dl (31.0-36.0); Mean Corpuscular Volume 80.2 fL (80.0-98.0); Mean Platelet Volume 10.2 fL (9.4-12.4); Monocytes Absolute Auto 0.8 X10*3/uL (0.1-1.2); Monocytes Percent Auto 11.3 % (2-11); Neutrophils Absolute Auto 4.1 x10*3/uL (2.0-8.3); Neutrophils Percent Auto 56.2 % (45-73); Platelet Count 311 X10*3/uL (160-400); Red Blood Count 3.64 X10*6/uL (4.60-5.80); Red Cell Distribution Width 16.8 % (11.0-16.0); White Blood Count 7.2 X10*3/uL (4.8-10.8)
[2022-05-07] MEDS: HYDROmorphone HCl 0.5 MG/0.5 ML SYRINGE 0.25 MG IVPUSH ×2 (16:20→16:25)
[2022-05-07] MEDS: Lactated Ringers 1,000 ML 100 ML IVCONT (16:30)
[2022-05-07 19:06] LABS: Estimated Glomerular Filt Rate > 60
--- NOTE | 2022-05-07 20:04 | PHA.PROG ---
Admission Date/Time: May 07, 2022 09:23 Indication: Weight in k.687 kg Adjusted body weight in K.695 [place] body weight in K.7 Obesity Dosing Indication % IBW:34.4 Serum Creatinine - Last 168 Hours 05/07/22 18:45 Creatinine 0.78 Estimated CrCl and GFR - Last 168 Hours 05/07/22 18:45 Estim Creat Clear Calc 110.0 Estimated GFR > 60 Vancomycin Loading Dose: 1500 Current Vancomycin Dosing Regimen:1000 Q12 Vancomycin Monitoring using AUC goal of 400 - 600 range with trough as surrogate marker: AUC 471 AFTER 4TH DOSE WITH TOX 9% EXPECTED Date and Time for next Vancomycin Level to be drawn: 05/08 @2100 Pharmacist Comments on Vancomycin Plan: Confirmed with md that she wants to continue patient on vancomycin after surgery beyond prophylaxis dosing. Vancomycin dosing will take advantage of [employer] as a clinical decision support tool that uses Bayesian modeling to calculate individual patient's pharmacokinetic parameters and forecast the patient's drug concentration time course with the target goal AUC 24 range of 400 - 600 mg/L/hr.
[2022-05-07] MEDS: Docusate Sodium 100 MG CAPSULE PO (20:36)
[2022-05-07] MEDS: Gabapentin 300 MG CAPSULE PO (20:36)
[2022-05-07] MEDS: oxyCODONE HCl ER 10 MG TAB.ER.12H PO (20:36)
[2022-05-07] MEDS: Atorvastatin Calcium 40 MG TABLET PO (20:36)
[2022-05-07] MEDS: 0.9 % Sodium Chloride Flush 3 ML SYRINGE IVFLUSH (20:36)
[2022-05-07] MEDS: Celecoxib 200 MG CAPSULE PO (20:36)
[2022-05-07] MEDS: Brimonidine Tartrate 0.2% Oph 5 ML BOTTLE 1 DROP EYE-LEFT (21:11)
[2022-05-07] MEDS: Latanoprost 0.005 % Ophth Sol 2.5 ML DROPS 1 DROP EYE-BOTH (21:11)
[2022-05-07] MEDS: Dorzolamide/Timolo 2.23%/0.68% 10 ML DRBTL 1 DROP EYE-BOTH (21:11)
[2022-05-07] MEDS: NeoMYCIN/Polymyxin/HC Otic Sus 10 ML DRPBTL 4 DROP EAR-BOTH (21:11)
[2022-05-07] MEDS: vancomycin HCL 1,000 MG in 0.9 % Sodium Chloride 250 ML 270 MG IV (22:56)
[2022-05-08] VITALS (8 sets, daily range): BP systolic 116–138; BP diastolic 61–67; PULSE 70–110; RESP 16–20; TEMP 36.1–37.2; O2SAT 93–96
[2022-05-08] MEDS: Lactated Ringers 1,000 ML 100 ML IVCONT ×2 (01:23→18:17)
[2022-05-08] MEDS: Omeprazole 20 MG CAPSULE.DR PO (05:22)
--- NOTE | 2022-05-08 06:02 | P.PNOP_ITS ---
Subjective Subjective Date of Service: 05/08/22 Interval history: POD 1 s/p Revision RT TKA -resection arthroplasty with placement abx spacer no overnight events resting in bed denies sob,palpitations, chest pain Physical Exam Vital Signs: Vital Signs: Last Vital Signs Temp 98.3 F 05/08/22 04:00 Pulse 110 H 05/08/22 04:00 Resp 16 05/08/22 04:00 BP 122/67 05/08/22 04:00 Pulse Ox 96 05/08/22 04:00 O2 Del Method 05/08/22 04:00 O2 Flow Rate 2 05/08/22 04:00 BMI result Body Mass Index 34.4 Const: General: cooperative, healthy appearing and no acute distress Resp: Effort & Inspection: normal respiratory effort and able to speak in c omplete sentences Cardio: Rate: regular rate Peripheral pulses: Peripheral pulses 2+ throughout GI: Palpation (GI): Soft to palpation Skin: General skin exam: no rashes or lesions noted Extrem: Other: incision clean dry and intact. [place] intact. No erythema or joint effusion. Calf supple nontender. Neurovascularly intact. Procedures Date of Service Date of Service: 05/08/22 Progress Note: A&P Assessment and plan (1) History of revision of total replacement of right knee joint: Status: Acute Assessment and Plan: * Continue pain mgmnt * continue IV vanco * -monitor trough * Begin lovenox for dvt ppx * begin PT for RT TKA--brace while ambuating only for stability-no ROM or WB restrictions * -monitor H/H * ID consukt * Picc line ordered * Dispo planning-Pending PT eval, pain mgmnt Time Spent With Patient Time: Total time managing care of this patient today ____ minutes. Quality Stroke Does the patient have a stroke diagnosis?: No VTE Prior VTE?: No VTE Risk Level:: Surgical - very high VTE Device Contraindication: N/A - Device Ordered VTE Drug Contraindication: N/A - Med Ordered
[2022-05-08 06:32] LABS: MANUAL DIFF FLAG NO
[2022-05-08 06:34] LABS: Basophils Percent Auto 0.4 % (0-2); Eosinophils Absolute Auto 0.1 X10*3/uL (0.0-0.4); Eosinophils Percent Auto 0.6 % (0-4); Hematocrit 25.7 % (42.0-52.0); Hemoglobin 8.1 g/dl (14.0-18.0); Imm Gran Abs Auto 0.03 X10*3/uL (0.00-0.03); Imm Gran Pct Auto 0.4 % (0.0-0.4); Lymphocytes Percent Auto 12.2 % (20-40); Mean Corpuscular HGB Conc 31.5 g/dl (31.0-36.0); Mean Corpuscular Hemoglobin 24.9 pg (27.0-33.0); Mean Corpuscular Volume 79.1 fL (80.0-98.0); Mean Platelet Volume 10.1 fL (9.4-12.4); Monocytes Absolute Auto 1.2 X10*3/uL (0.1-1.2); Monocytes Percent Auto 13.8 % (2-11); Neutrophils Absolute Auto 6.2 x10*3/uL (2.0-8.3); Neutrophils Percent Auto 72.6 % (45-73); Platelet Count 298 X10*3/uL (160-400); Red Blood Count 3.25 X10*6/uL (4.60-5.80); Red Cell Distribution Width 16.5 % (11.0-16.0); White Blood Count 8.5 X10*3/uL (4.8-10.8)
[2022-05-08 07:04] LABS: Anion Gap 11 (12-20); Blood Urea Nitrogen 11 mg/dL (9-16); Calcium 8.6 mg/dL (8.4-10.2); Carbon Dioxide 27 mmol/L (22-29); Chloride 104 mmol/L (96-108); Creatinine Clr Calc Pharmacy 108.6; Estimated Glomerular Filt Rate > 60; Glucose Fasting 127 mg/dL (60-99); Potassium 4.3 mmol/L (3.3-5.1); Sodium 138 mmol/L (135-145)
--- NOTE | 2022-05-08 07:36 | P.CONHOSP_ITS ---
History of Present Illness Data of Consult Service Date: 05/08/22 Requesting physician: Dianna Schulz Primary Care Provider: MD VICKY Major Reason for consult: medical management 67 year old male with history of GERD, HFpEF, htn, gout, hx TIA, hx alcohol abuse, idiopathic peripheral neuropathy, prediabetes, and obesity admitted to orthopedic surgery for revision of right TKR with consult placed to medicine for medical management. Reports last etoh was 1998, denies smoking or illicit drug use hx. He has no complaints this morning. Sitting up in bed, eating breakfast. Pain is well controlled. Review of Systems Review of Systems: General: No fevers, malaise, unintentional weight loss HEENT: No sore throat, nasal congestion, rhinorrhea, sinus pain, ear pain Cardiovascular: No chest pain, palpitations, or leg edema Respiratory: No shortness of breath, wheezing, cough GI: No abdominal pain, nausea, vomiting, diarrhea, constipation, melena, hematochezia : No dysuria, hematuria, increased urinary frequency, decreased urinary output MSK: No myalgia, back pain Neuro: No headaches, weakness, paresthesias Skin: No rashes or lesions PMFSH Medical History Arthritis Ascending aorta dilation Back pain Chronic diarrhea Chronic heart failure with preserved ejection fraction (HFpEF) Chronic right heart failure Diarrhea Essential hypertension GERD (gastroesophageal reflux disease) Gout Hiatal hernia History of alcoholism History of esophageal varices History of GI bleed History of TIA (transient ischemic attack) History of Ssihh-Svkarkiue-Ufuyo (WPW) syndrome HTN (hypertension) Idiopathic peripheral neuropathy Lumbar spondylosis Morbid obesity Nocturnal hypoxemia Obesity (BMI 30-39.9) On beta miguel at home VY (obstructive sleep apnea) Pre-diabetes Shoulder injury Family History Father Diabetes mellitus Surgical History H/O cardiac radiofrequency ablation History of colonoscopy History of esophagogastroduodenoscopy (EGD) Hx of total knee replacement Social History Household Members: Significant Other and Family Household Members Other:: Brother Housing: House Are you a primary congregational care pastor to a significant other at home: No Do you presently have visiting nurse or other home services: Yes (1x per week) Alcohol intake: former Year quit: 1998 Patient Tobacco Use Status: Never used Tobacco e-Cigarette/Vaping Use: Never Used Second Hand Smoke Exposure: Yes Use of substances other than those prescribed or required for medical reasons: No Substance Use Type Other:: Last 1998 Currently Displaying Signs/Symptoms of Drug Intoxication Withdrawal: No Have you been hit, kicked, punched, or otherwise hurt by someone within the past year? If so, by whom?: No Do you feel safe in your current relationship?: Yes Is there a partner from a previous relationship who is making you feel unsafe now?: No Are you made to feel afraid or neglected: No Are you DNR?: No Advance Directives: Yes Advance Directives Information Provided: No Advance Directives on File: Yes Advance Directives Date on File: 05/03/20 Do you have thoughts of harming others: None Do you have a plan to hurt others: No Plan Recently lost weight without trying: No How much weight loss: Not applicable Eating poorly because of decreased appetite: No Nutrition screen score: 0 Nutrition Risks: No Nutritional Risk Poor oral hygiene: No service: No Current occupational status: retired 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 Cognitive needs: No Hearing needs: No Vision needs: Yes Meds Allergies Allergy/AdvReac Type Severity Reaction Status Date / Time lisinopril [LISINOPRIL] Allergy Mild TONGUE Verified 05/07/22 10:37 SWELLING, CONFUSION Active Medications: Current Medications Acetaminophen (Acetaminophen 325 Mg Tablet) 650 mg PO Q6H PRN PRN Reason: Pain, Mild (Pain Scale 1-3) Atorvastatin Calcium (Atorvastatin Calcium 40 Mg Tablet) 40 mg PO BEDTIME [facility] Last Admin: 05/07/22 20:36 Dose: 40 mg Brimonidine Tartrate (Brimonidine Tartrate 0.2% Oph 5 Ml Bottle) 1 drop EYE- LEFT BID [facility] Last Admin: 05/07/22 21:11 Dose: 1 drop Celecoxib (Celecoxib 200 Mg Capsule) 200 mg PO BID [facility] Last Admin: 05/07/22 20:36 Dose: 200 mg Diphenhydramine HCl (Diphenhydramine Hcl 25 Mg Capsule) 25 mg PO BEDTIME PRN PRN Reason: Insomnia Docusate Sodium (Docusate Sodium 100 Mg Capsule) 100 mg PO BID [facility] Last Admin: 05/07/22 20:36 Dose: 100 mg Dorzolamide/Timolol (Dorzolamide/Timolo 2.23%/0.68% 10 Ml Drbtl) 1 drop EYE- BOTH BEDTIME [facility] Last Admin: 05/07/22 21:11 Dose: 1 drop Enoxaparin Sodium (Enoxaparin Sodium 40 Mg/0.4 Ml Syringe) 40 mg SUBCUT Q24H [facility] Ferrous Sulfate (Ferrous Sulfate 324 Mg Tablet.Dr) 324 mg PO DAILY [facility] Gabapentin (Gabapentin 300 Mg Capsule) 300 mg PO BEDTIME [facility] Last Admin: 05/07/22 20:36 Dose: 300 mg Hydromorphone HCl (Hydromorphone Hcl 0.5 Mg/0.5 Ml Syringe) 0.25 mg IVPUSH Q5M PRN; Protocol PRN Reason: Pain, Severe (Pain Scale 7-10) Last Admin: 05/07/22 16:25 Dose: 0.25 mg Hydromorphone HCl (Hydromorphone Hcl 0.5 Mg/0.5 Ml Syringe) 0.25 mg IVPUSH Q4H PRN; Protocol PRN Reason: Pain, Severe (Pain Scale 7-10) Lactated Ringer's (Lr) 1,000 mls @ 100 mls/hr IVCONT .Q10H [facility] Stop: 05/08/22 15:35 Last Admin: 05/08/22 01:23 Dose: 100 mls/hr Vancomycin HCl 1,000 mg/ (Sodium Chloride) 270 mls @ 270 mls/hr IV Q12H [facility] Last Infusion: 05/08/22 00:14 Dose: Infused Latanoprost (Latanoprost 0.005 % Ophth [place] 2.5 Ml Drops) 1 drop EYE-BOTH BEDTIME [facility] Last Admin: 05/07/22 21:11 Dose: 1 drop Metoprolol Succinate (Metoprolol Succinate Er 100 Mg Tab.Er.24h) 200 mg PO DAILY [facility]; Protocol Neomycin/Polymyxin/Hydrocortisone (Neomycin/Polymyxin/Hc Otic Yessy 10 Ml Drpbtl) 4 drop EAR-BOTH TID [facility] Last Admin: 05/07/22 21:11 Dose: 4 drop Omeprazole (Omeprazole 20 Mg Capsule.Dr) 20 mg PO DAILY@0630 [facility] Last Admin: 05/08/22 05:22 Dose: 20 mg Ondansetron HCl (Ondansetron Hcl 4 Mg/2 Ml Vial) 4 mg IVPUSH ONCE PRN PRN Reason: Nausea and Vomiting Ondansetron HCl (Ondansetron Hcl 4 Mg/2 Ml Vial) 4 mg IVPUSH Q8H PRN PRN Reason: Nausea and Vomiting Oxycodone HCl (Oxycodone Hcl Immed Release 5 Mg Tablet) 5 mg PO Q4H PRN PRN Reason: Pain, Moderate (Pain Scale 4-6 Last Admin: 05/07/22 15:35 Dose: 5 mg Oxycodone HCl (Oxycodone Hcl Er 10 Mg Tab.Er.12h) 10 mg PO BID [facility] Last Admin: 05/07/22 20:36 Dose: 10 mg Pharmacy Consult (Consult Rx Vancomycin Dosing) 1 each MISCELLANE DAILY PRN PRN Reason: Consult order Sodium Chloride (0.9 % Sodium Chloride Flush 3 Ml Syringe) 3 ml IVFLUSH QSHIFT [facility] Last Admin: 05/07/22 20:36 Dose: 3 ml Home Medications Medication Instructions Recorded Confirmed Last Taken Type dorzolamide 22.3 mg-timolol 6.8 1 drp ophthalmic (eye) BEDTIME 12/07/19 05/07/22 04/02/21 History mg/mL eye drops latanoprost 0.005 % eye drops 1 drp ophthalmic (eye) BEDTIME 12/07/19 05/06/22 03/11/22 History brimonidine 0.2 % eye drops 1 drp ophthalmic-Left BID 02/16/21 05/07/22 03/11/22 History ascorbic acid (vitamin C) 500 mg 500 mg PO BID 04/03/21 05/06/22 03/11/22 History chewable tablet (Vitamin C) diphenhydramine HCl 25 mg capsule 25 mg PO BEDTIME PRN Insomnia 04/03/21 05/06/22 Unknown History (Benadryl) loperamide 2 mg tablet (Imodium 2 mg PO BID 04/03/21 05/06/22 Unknown History A-D) multivitamin 1 tab PO DAILY 04/03/21 05/06/22 03/11/22 History ferrous sulfate 325 mg (65 mg 325 mg PO DAILY 05/01/22 05/06/22 05/06/22 History iron) tablet atorvastatin 40 mg tablet 1 tab PO BEDTIME 05/07/22 05/07/22 Unknown History pybovmwl-fbahexnxu-djsivcrqs 3.5 4 drp otic (ears) TID 05/07/22 05/07/22 Unknown History mg-10,000 unit/mL-1 % ear drops,susp Physical Exam Vital Signs and Narrative: Vital Signs: Last Vital Signs Temp 98 F 05/08/22 06:56 Pulse 74 05/08/22 06:56 Resp 18 05/08/22 06:56 BP 138/64 05/08/22 06:56 Pulse Ox 95 05/08/22 06:56 O2 Del Method 05/08/22 06:56 O2 Flow Rate 2 05/08/22 06:56 BMI result Body Mass Index 34.4 Constitutional - Awake and Alert, No apparent distress Eyes - PERRLA, EOMI Cardiovascular - S1S2, RRR, No edema Respiratory - Normal lung expansion, Normal respiratory effort, No respiratory d istress, CTA bilaterally Gastrointestinal - NT / ND; +BS; No rebound or guarding Extremities - no calf tenderness bilaterally, no swelling Skin - Warm/Dry Neurological - Alert & oriented x3 Psychological - Appropriate affect Results Labs 05/08/22 05:49 05/08/22 05:49 Labs: Laboratory Results - last 24 hr 05/06/22 05/07/22 05/07/22 16:00 09:45 11:15 MCV MCH MCHC RDW Plt Count MPV Immature Gran % (Auto) Neut % (Auto) Lymph % (Auto) [place] % (Auto) Eos % (Auto) Baso % (Auto) Lymph # (Auto) [place] # (Auto) Eos # (Auto) Baso # (Auto) Abs Immat Gran (auto) Absolute Neuts (auto) Absolute Nucleated RBC Nucleated RBC % (auto) Anion Gap Estim Creat Clear Calc Estimated GFR POC Glucose 121 H Fasting Glucose Calcium COVID-19 ([facility]LL) Negative COVID-19 Clin Com See Note Blood Type A Positive Antibody Screen NEGATIVE Crossmatch See Detail 05/07/22 05/07/22 05/08/22 15:47 18:45 05:49 MCV 80.2 79.1 L MCH 25.0 L 24.9 L MCHC 31.2 31.5 RDW 16.8 H 16.5 H Plt Count 311 298 MPV 10.2 10.1 Immature Gran % (Auto) 1.1 H 0.4 Neut % (Auto) 56.2 72.6 Lymph % (Auto) 25.4 12.2 L [place] % (Auto) 11.3 H 13.8 H Eos % (Auto) 5.4 H 0.6 Baso % (Auto) 0.6 0.4 Lymph # (Auto) 1.8 1.0 L [place] # (Auto) 0.8 1.2 Eos # (Auto) 0.4 0.1 Baso # (Auto) 0.0 0.0 Abs Immat Gran (auto) 0.08 H 0.03 Absolute Neuts (auto) 4.1 6.2 Absolute Nucleated RBC 0.000 0.000 Nucleated RBC % (auto) 0.0 0.0 Anion Gap Estim Creat Clear Calc 110.0 Estimated GFR > 60 POC Glucose Fasting Glucose Calcium COVID-19 ([facility]LL) COVID-19 [facility]OWash Blood Type Antibody Screen Crossmatch 05/08/22 05:49 MCV MCH MCHC RDW Plt Count MPV Immature Gran % (Auto) Neut % (Auto) Lymph % (Auto) [place] % (Auto) Eos % (Auto) Baso % (Auto) Lymph # (Auto) [place] # (Auto) Eos # (Auto) Baso # (Auto) Abs Immat Gran (auto) Absolute Neuts (auto) Absolute Nucleated RBC Nucleated RBC % (auto) Anion Gap 11 L Estim Creat Clear Calc 108.6 Estimated GFR > 60 POC Glucose Fasting Glucose 127 H Calcium 8.6 COVID-19 ([facility]) COVID-19 Clin Com Blood Type Antibody Screen Crossmatch Assessment and Plan (1) Routine medical exam: Status: Acute Plan 67 year old male with history of GERD, HFpEF, htn, gout, hx TIA, hx alcohol abuse, idiopathic peripheral neuropathy, prediabetes, and obesity admitted to orthopedic surgery for revision of right TKR with consult placed to medicine for medical management. #Revision right TKR -plan per ortho surgery -pain management per ortho surgery #HTN- reasonably controlled -Continue metoprolol. resume lasix and nifedipine am #HFpEF- euvolemic -resume lasix am #GERD -continue ppi #Idioppathic peripheral neuropathy -continue gabapentin #Obesity -Reocmmend weight loss efforts Thank you for allowing me to participate in this consult. Signing off at this time. Please do not hesitate to call for further questions. Time Spent With Patient Time: Total time managing care of this patient today ____ minutes.
[2022-05-08] MEDS: Ferrous Sulfate 324 MG TABLET.DR PO (07:58)
[2022-05-08] MEDS: Docusate Sodium 100 MG CAPSULE PO ×2 (07:58→20:42)
[2022-05-08] MEDS: oxyCODONE HCl ER 10 MG TAB.ER.12H PO ×2 (07:58→20:42)
[2022-05-08] MEDS: Celecoxib 200 MG CAPSULE PO ×2 (07:59→20:42)
[2022-05-08] MEDS: NeoMYCIN/Polymyxin/HC Otic Sus 10 ML DRPBTL 4 DROP EAR-BOTH ×3 (08:00→20:43)
[2022-05-08] MEDS: Brimonidine Tartrate 0.2% Oph 5 ML BOTTLE 1 DROP EYE-LEFT ×2 (08:00→20:42)
[2022-05-08] MEDS: Metoprolol Succinate ER 100 MG TAB.ER.24H 200 MG PO (08:00)
[2022-05-08] MEDS: 0.9 % Sodium Chloride Flush 3 ML SYRINGE IVFLUSH ×2 (08:00→20:43)
--- NOTE | 2022-05-08 09:25 | MHC.CM.PN ---
CM has met with Patient at bedside and addressed IMM with him, providing him with the original and placing a copy on the chart. Patient lives in a house with his Brother/Sree and Girlfriend/Ira and he has been using a cane to assist with mobility. PT is recommending ST and Patient is in agreement with a SNF search. CM has initiated and will follow for dc planning. Patient has received Covid vax 4 [address] his PCP is Dr. Conchita Chavis.Patient's Brother/Adeel is the HCP.
--- NOTE | 2022-05-08 09:30 | MHC.CM.PN ---
ADDENDUM: Patient states that he is active with [facility].
--- NOTE | 2022-05-08 10:38 | MHC.CM.PN ---
CORRECTION, PT is recommending Acute Rehab and appropriately referrals have been made. CM will follow.
[2022-05-08] MEDS: Acetaminophen 325 MG TABLET 650 MG PO (11:14)
[2022-05-08] MEDS: oxyCODONE HCl Immed Release 5 MG TABLET PO (11:14)
[2022-05-08] MEDS: vancomycin HCL 1,000 MG in 0.9 % Sodium Chloride 250 ML 270 MG IV (11:15)
--- NOTE | 2022-05-08 12:56 | HO.POSTANES ---
Post Anesthesia Evaluation Post Anesthesia Evaluation Vital Signs: Vital Signs Temp Pulse Resp BP Pulse Ox O2 Del Method O2 Flow Rate 05/08/22 09:16 74 138/64 95 05/08/22 06:56 98 F 74 18 138/64 95 Nasal Cannula 2 05/08/22 04:00 98.3 F 110 H 16 122/67 96 Nasal Cannula 2 Anesthesia: Spinal and Nerve Block Mental Status: Awake Pain Control: Satisfactory Nausea/Vomiting: None Hydration: Adequate Anesthesia-Related Issues: No Anes. Related Issues
--- NOTE | 2022-05-08 13:51 | HO.PICC ---
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 Following completion of [place] Protocol the skin and soft tissues were anesthetized with 1% Lidocaine plain. Using ultrasound guidance, Right basilic vein access was obtained in a single attempt by this RN. Over an 0.018 wire through peel-away sheath, a 5 [place] double PASV lumen PICC line was positioned. Catheter length is 46 cm internal length, 0 cm external length, for a total trimmed length of 46 cm. The procedure was performed in S272. Tip verification was performed by Rupert Lara with Lucy 3CG. Tip located in SVC. Ultrasound was used to document vein patency and for needle entry. A formal ultrasound picture and cardiac rhythm strip was recorded. Vascular Apprentice Cook has released the line for use and it is currently dressed with a StatLock, Tegaderm, and CHG disc. Verification has been performed for blood return and line patency. Arm Circumference: Equipment: Audible Magic PowerPICC Solo double lumen PASV PICC Catheter Type: 5 [place]an double lumen PASV PICC Lot #: [id number]
[2022-05-08] MEDS: Enoxaparin Sodium 40 MG/0.4 ML SYRINGE SUBCUT (14:23)
[2022-05-08] MEDS: HYDROmorphone HCl 0.5 MG/0.5 ML SYRINGE 0.25 MG IVPUSH (14:23)
[2022-05-08] MEDS: 0.9 % Sodium Chloride Flush 10 ML SYRINGE 5 ML IVFLUSH (14:24)
--- NOTE | 2022-05-08 14:57 | MHC.CM.PN ---
PT is recommending Acute Rehab and [facility] has clinically accepted Patient. If Patient chooses [facility] at time of dc, he would need to be aware of the possibility that he would be dc to home from there prior to IVBT being completed and therefor would need to be willing to learn himself or have someone else learn how to manage the IVABT at home. Also, because Patient only has Medicare, Patient may encounter out of pocket expenses r/t the drug/supplies/etc. Referrals to SNFs have also been made and CM will continue to follow.
--- NOTE | 2022-05-08 15:47 | P.CNID_ITS ---
History of Present Illness Data of Consult Service Date: 05/08/22 Requesting physician: Julian Chavarria Primary Care Provider: Conchita Chavis MD HPI Reason for consult: infection right knee,s/p TKR He presents with right knee swelling. He had loose hardware. He had TKR 04/03/2021. He was reported to have abscess right suprapatellar area. Joint infection was concern. Area grew staph epi and staph lugdunensis on 04/01/2022. He had R TKR arthroplasty and revision with spacer 05/07/2022,yesterday. He just had right PICC line placed. Review of Systems Review of Systems: Yes all other systems are reviewed and are negative PMFSH Past Medical History Medical History Arthritis Ascending aorta dilation Back pain Chronic diarrhea Chronic heart failure with preserved ejection fraction (HFpEF) Chronic right heart failure Diarrhea Essential hypertension GERD (gastroesophageal reflux disease) Gout Hiatal hernia History of alcoholism History of esophageal varices History of GI bleed History of TIA (transient ischemic attack) History of Ziihq-Gkqfoitwm-Jwgma (WPW) syndrome HTN (hypertension) Idiopathic peripheral neuropathy Lumbar spondylosis Morbid obesity Nocturnal hypoxemia Obesity (BMI 30-39.9) On beta miguel at home VY (obstructive sleep apnea) Pre-diabetes Shoulder injury Family History Family History Father Diabetes mellitus Family history: reviewed and not pertinent Surgical History Surgical History H/O cardiac radiofrequency ablation History of colonoscopy History of esophagogastroduodenoscopy (EGD) Hx of total knee replacement Social History Social History Household Members: Significant Other and Family Household Members Other:: Brother Housing: House Are you a primary wild animal caretaker to a significant other at home: No Do you presently have visiting nurse or other home services: Yes (1x per week) Alcohol intake: former Year quit: 1998 Patient Tobacco Use Status: Never used Tobacco e-Cigarette/Vaping Use: Never Used Second Hand Smoke Exposure: Yes Use of substances other than those prescribed or required for medical reasons: No Substance Use Type Other:: Last ETOH - 1998 Currently Displaying Signs/Symptoms of Drug Intoxication Withdrawal: No Have you been hit, kicked, punched, or otherwise hurt by someone within the past year? If so, by whom?: No Do you feel safe in your current relationship?: Yes Is there a partner from a previous relationship who is making you feel unsafe now?: No Are you made to feel afraid or neglected: No Are you DNR?: No Advance Directives: Yes Advance Directives Information Provided: No Advance Directives on File: Yes Advance Directives Date on File: 05/03/20 Do you have thoughts of harming others: None Do you have a plan to hurt others: No Plan Recently lost weight without trying: No How much weight loss: Not applicable Eating poorly because of decreased appetite: No Nutrition screen score: 0 Nutrition Risks: No Nutritional Risk Poor oral hygiene: No service: No Current occupational status: retired 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 Cognitive needs: No Hearing needs: No Vision needs: Yes Meds Allergies Allergy/AdvReac Type Severity Reaction Status Date / Time lisinopril [LISINOPRIL] Allergy Mild TONGUE Verified 05/07/22 10:37 SWELLING, CONFUSION Active Medications: Current Medications Acetaminophen (Acetaminophen 325 Mg Tablet) 650 mg PO Q6H PRN PRN Reason: Pain, Mild (Pain Scale 1-3) Last Admin: 05/08/22 11:14 Dose: 650 mg Atorvastatin Calcium (Atorvastatin Calcium 40 Mg Tablet) 40 mg PO BEDTIME [facility] Last Admin: 05/07/22 20:36 Dose: 40 mg Brimonidine Tartrate (Brimonidine Tartrate 0.2% Oph 5 Ml Bottle) 1 drop EYE- LEFT BID [facility] Last Admin: 05/08/22 08:00 Dose: 1 drop Celecoxib (Celecoxib 200 Mg Capsule) 200 mg PO BID [facility] Last Admin: 05/08/22 07:59 Dose: 200 mg Diphenhydramine HCl (Diphenhydramine Hcl 25 Mg Capsule) 25 mg PO BEDTIME PRN PRN Reason: Insomnia Docusate Sodium (Docusate Sodium 100 Mg Capsule) 100 mg PO BID [facility] Last Admin: 05/08/22 07:58 Dose: 100 mg Dorzolamide/Timolol (Dorzolamide/Timolo 2.23%/0.68% 10 Ml Drbtl) 1 drop EYE- BOTH BEDTIME [facility] Last Admin: 05/07/22 21:11 Dose: 1 drop Enoxaparin Sodium (Enoxaparin Sodium 40 Mg/0.4 Ml Syringe) 40 mg SUBCUT Q24H [facility] Last Admin: 05/08/22 14:23 Dose: 40 mg Ferrous Sulfate (Ferrous Sulfate 324 Mg Tablet.) 324 mg PO DAILY [facility] Last Admin: 05/08/22 07:58 Dose: 324 mg Furosemide (Furosemide 20 Mg Tablet) 20 mg PO DAILY [facility]; Protocol Gabapentin (Gabapentin 300 Mg Capsule) 300 mg PO BEDTIME [facility] Last Admin: 05/07/22 20:36 Dose: 300 mg Hydromorphone HCl (Hydromorphone Hcl 0.5 Mg/0.5 Ml Syringe) 0.25 mg IVPUSH Q5M PRN; Protocol PRN Reason: Pain, Severe (Pain Scale 7-10) Last Admin: 05/07/22 16:25 Dose: 0.25 mg Hydromorphone HCl (Hydromorphone Hcl 0.5 Mg/0.5 Ml Syringe) 0.25 mg IVPUSH Q4H PRN; Protocol PRN Reason: Pain, Severe (Pain Scale 7-10) Last Admin: 05/08/22 14:23 Dose: 0.25 mg Vancomycin HCl 1,000 mg/ (Sodium Chloride) 270 mls @ 270 mls/hr IV Q12H [facility] Last Infusion: 05/08/22 12:19 Dose: Infused Latanoprost (Latanoprost 0.005 % Ophth [place] 2.5 Ml Drops) 1 drop EYE-BOTH BEDTIME [facility] Last Admin: 05/07/22 21:11 Dose: 1 drop Metoprolol Succinate (Metoprolol Succinate Er 100 Mg Tab.Er.24h) 200 mg PO DAILY [facility]; Protocol Last Admin: 05/08/22 08:00 Dose: 200 mg Neomycin/Polymyxin/Hydrocortisone (Neomycin/Polymyxin/Hc Otic Yessy 10 Ml Drpbtl) 4 drop EAR-BOTH TID [facility] Last Admin: 05/08/22 14:24 Dose: 4 drop Nifedipine (Nifedipine Er 60 Mg Tab.Er.24) 60 mg PO DAILY [facility] Omeprazole (Omeprazole 20 Mg Capsule.) 20 mg PO DAILY@0630 [facility] Last Admin: 05/08/22 05:22 Dose: 20 mg Ondansetron HCl (Ondansetron Hcl 4 Mg/2 Ml Vial) 4 mg IVPUSH ONCE PRN PRN Reason: Nausea and Vomiting Ondansetron HCl (Ondansetron Hcl 4 Mg/2 Ml Vial) 4 mg IVPUSH Q8H PRN PRN Reason: Nausea and Vomiting Oxycodone HCl (Oxycodone Hcl Immed Release 5 Mg Tablet) 5 mg PO Q4H PRN PRN Reason: Pain, Moderate (Pain Scale 4-6 Last Admin: 05/08/22 11:14 Dose: 5 mg Oxycodone HCl (Oxycodone Hcl Er 10 Mg Tab.Er.12h) 10 mg PO BID [facility] Last Admin: 05/08/22 07:58 Dose: 10 mg Pharmacy Consult (Consult Rx Vancomycin Dosing) 1 each MISCELLANE DAILY PRN PRN Reason: Consult order Sodium Chloride (0.9 % Sodium Chloride Flush 3 Ml Syringe) 3 ml IVFLUSH QSHIFT [facility] Last Admin: 05/08/22 08:00 Dose: 3 ml Home Medications Medication Instructions Recorded Confirmed Last Taken Type dorzolamide 22.3 mg-timolol 6.8 1 drp ophthalmic (eye) BEDTIME 12/07/19 05/07/22 04/02/21 History mg/mL eye drops latanoprost 0.005 % eye drops 1 drp ophthalmic (eye) BEDTIME 12/07/19 05/06/22 03/11/22 History brimonidine 0.2 % eye drops 1 drp ophthalmic-Left BID 02/16/21 05/07/22 03/11/22 History ascorbic acid (vitamin C) 500 mg 500 mg PO BID 04/03/21 05/06/22 03/11/22 History chewable tablet (Vitamin C) diphenhydramine HCl 25 mg capsule 25 mg PO BEDTIME PRN Insomnia 04/03/21 05/06/22 Unknown History (Benadryl) loperamide 2 mg tablet (Imodium 2 mg PO BID 04/03/21 05/06/22 Unknown History A-D) multivitamin 1 tab PO DAILY 04/03/21 05/06/22 03/11/22 History ferrous sulfate 325 mg (65 mg 325 mg PO DAILY 05/01/22 05/06/22 05/06/22 History iron) tablet atorvastatin 40 mg tablet 1 tab PO BEDTIME 05/07/22 05/07/22 Unknown History iggxixig-aeeuxlacq-viqnracyl 3.5 4 drp otic (ears) TID 05/07/22 05/07/22 Unknown History mg-10,000 unit/mL-1 % ear drops,susp Physical Exam Vital Signs: Vital Signs: Last Vital Signs Temp 98.1 F 05/08/22 15:02 Pulse 70 05/08/22 15:02 Resp 18 05/08/22 15:02 BP 121/67 05/08/22 15:02 Pulse Ox 96 05/08/22 15:02 O2 Del Method 05/08/22 15:02 O2 Flow Rate 2.0 05/08/22 15:02 BMI result Body Mass Index 34.4 Const: General: cooperative HEENT: Head: Yes normal to inspection Face and sinus: Yes normal facial exam Mouth: Normal oral and palatal mucosa present Teeth and gingiva: dentition normal Eyes: General: appearance normal, both eyes and all related structures Pupils: Equal, round and reactive pupils present Resp: Effort & Inspection: normal respiratory effort Cardio: Rate: regular rate Rhythm: regular rhythm GI: Palpation (GI): Soft to palpation and nontender : General: Yes no CVA tenderness Back/Spine/Pelvis: Back: no CVA tenderness Skin: General skin exam: no rashes or lesions noted Neuro: General: moves all extremities Cranial nerves: Yes Equal, round and reactive pupils present Extrem: Other: right knee wrapped Psych: Appearance: grossly normal Results Labs 05/08/22 05:49 05/08/22 05:49 Labs: Short CBC 05/07/22 05/08/22 Range/Units 15:47 05:49 WBC 7.2 8.5 (4.8-10.8) X10*3/uL Hgb 9.1 L 8.1 L (14.0-18.0) g/dl Hct 29.2 L 25.7 L (42.0-52.0) % Plt Count 311 298 (160-400) X10*3/uL BMP 05/07/22 05/08/22 18:45 05:49 Sodium 138 Potassium 4.3 Chloride 104 Carbon Dioxide 27 BUN 11 Creatinine 0.78 0.79 Calcium 8.6 Microbiology Microbiology Results: Microbiology 05/07/22 13:28 Knee,Right Gram Stain - Final 05/07/22 13:28 Knee,Right Routine Culture - Preliminary No growth to date. 05/07/22 13:28 Knee,Right Anaerobic Culture - Preliminary No growth to date. Assessment and Plan (1) History of revision of total replacement of right knee joint: Status: Acute He has staph epi and staph lugdunensis joint infection concern. He has antibiotic spacer placed now. (2) C. difficile diarrhea: Status: Acute Plan Six weeks IV Vancomycin with 14-21 day po Rifampin 300 mg bid, goal trough therapeutic and weekly creatinine and vancomycin trough. This should be followed by po Doxycycline one to three months. These antibiotics do not cause Cdiff generally so no need po Vancomycin pr ophylaxis at this time. Time Spent With Patient Time: Total time managing care of this patient today ____ minutes.
[2022-05-08] MEDS: Gabapentin 300 MG CAPSULE PO (20:42)
[2022-05-08] MEDS: Dorzolamide/Timolo 2.23%/0.68% 10 ML DRBTL 1 DROP EYE-BOTH (20:42)
[2022-05-08] MEDS: Latanoprost 0.005 % Ophth Sol 2.5 ML DROPS 1 DROP EYE-BOTH (20:42)
[2022-05-08] MEDS: Atorvastatin Calcium 40 MG TABLET PO (20:42)
--- NOTE | 2022-05-08 21:19 | P.DS_ITS ---
DS: Providers Provider Date of Service: 05/08/22 Date of admission: 05/07/22 09:23 Primary care physician: Conchita Chavis MD Consults: 05/07/22 17:30 Consult to Hospitalist Routine Consulting Provider: Hospitalist Reason For Exam: medical mgmnt Consult to Infectious Diseases Routine Consulting Provider: Maryuri Gallardo Reason for consultation: right TKa infection -abx recommendation DS: Diagnosis Discharge Diagnosis (1) History of revision of total replacement of right knee joint: Status: Acute DS: Summary Hospital Course Hospital Course: The patient underwent a successful revision right total knee arthroplasty with placement of abx spacer on 05/07/22, was transferred to PACU and then to the floor to recover. During their stay, their vitals were stable, afebrile at. H/H prior to discharge dropped from 8.1/25.7 POD 1 to 7.2/23.5 , after 2 units of PRBCs his h/h went up to 9.1/29.0, goal Hemaglobin is 8. If he drops below 8, Hem/Onc recommends transfusion. POD 1 he was started on Lovenox for DVT ppx, they also received Physical Therapy services twice a day. He also had a 5 peruvian double lumen PASV PICC placed for administration of IV abx for 6 weeks. Physical therapy should include gait training, ROM to tolerance and quad stre ngth. He is WBAT. Knee brace should be worn with ambulation only to provide stability while walking. Ok to remove while at rest. Prior to discharge, his dressing was changed, incision clean dry and intact, new Aquacel dressing applied. The Aquacel dressing shoulder remain intact and dry at all times. Any concerns with the dressing, please contact orthopedic office. No showering. Check H/H twice a week: goal Hemaglobin is 8. If he drops below 8, Hem/Onc recommends transfusion Infectious Disease recommendations: Plan Six weeks IV Vancomycin ( start date 05/07/22) with 14-21 day po Rifampin 300 mg bid, goal trough therapeutic and weekly creatinine and vancomycin trough. This should be followed by po Doxycycline one to three months. These antibiotics do not cause Cdiff generally so no need po Vancomycin prophylaxis at this time. Picc Line / iv abx Orders: * Check Vanco trough levels after 4th dose--labs should be reported to Maryuri Gallardo, Infectious Disease : * Maryuri Gallardo MD * [address] [facility]. [address] * [id number] * [phone]? * Keep Vanco trough level between 10 and 20 * Flush PICC line with 10 cc of normal saline 3 times a day * Routine discharge flushing with 10 mL of normal saline after blood specimen withdrawal, medication administration or post transfusion flushing Time Spent with Patient Time attestation: Total time managing care of this patient today ____ minutes. Discharge coordination time: Greater than 30 minutes Quality: Safe Use of Opioids Does Pt have an Active Cancer Diagnosis on the Problem List?: No Quality: Stroke Does the patient have a stroke diagnosis?: No Physical Exam Vital Signs: Vital Signs: Last Vital Signs Temp 97.8 F 05/08/22 19:24 Pulse 70 05/08/22 19:24 Resp 18 05/08/22 19:24 BP 116/64 05/08/22 19:24 Pulse Ox 96 05/08/22 19:24 O2 Del Method 05/08/22 19:24 O2 Flow Rate 2.0 05/08/22 19:24 BMI result Body Mass Index 34.4 Const: General: cooperative, healthy appearing and no acute distress Resp: Effort & Inspection: normal respiratory effort and able to speak in complete sentences Cardio: Rate: regular rate Peripheral pulses: Peripheral pulses 2+ throughout GI: Palpation (GI): Soft to palpation Skin: General skin exam: no rashes or lesions noted Extrem: Other: incision clean dry and intact. Gopal intact. No erythema or joint effusion. Calf supple nontender. Neurovascularly intact. DS: Data Data Completed and Pending Completed studies during hospitalization [Text1]: Procedures Replacement of Right Knee Joint with Synthetic Substitute, Uncemented, Open Approach (04/03/21) Labs on day of discharge: Laboratory Results - last 24 hr 05/06/22 05/08/22 05/08/22 16:00 05:49 05:49 WBC 8.5 RBC 3.25 L Hgb 8.1 L Hct 25.7 L MCV 79.1 L MCH 24.9 L MCHC 31.5 RDW 16.5 H Plt Count 298 MPV 10.1 Immature Gran % (Auto) 0.4 Neut % (Auto) 72.6 Lymph % (Auto) 12.2 L [place] % (Auto) 13.8 H Eos % (Auto) 0.6 Baso % (Auto) 0.4 Lymph # (Auto) 1.0 L [place] # (Auto) 1.2 Eos # (Auto) 0.1 Baso # (Auto) 0.0 Abs Immat Gran (auto) 0.03 Absolute Neuts (auto) 6.2 Absolute Nucleated RBC 0.000 Nucleated RBC % (auto) 0.0 Sodium 138 Potassium 4.3 Chloride 104 Carbon Dioxide 27 Anion Gap 11 L BUN 11 Creatinine 0.79 Estim Creat Clear Calc 108.6 Estimated GFR > 60 Fasting Glucose 127 H Calcium 8.6 Crossmatch See Detail Preliminary micro results at discharge 05/07/22 13:28 Routine Culture - Preliminary Knee,Right No growth to date. Anaerobic Culture - Preliminary No growth to date. Discharge Plan Discharge Anticipated Discharge Date/Time: 05/10/22 11:50 Patient Disposition: Xfer [facility] Discharge Diagnosis: Revision right total knee -resection arthroplasty Referrals: Maryuri Gallardo MD [Physician] - 6 Weeks (06/19/22 1:30 [facility] Maryuri Gallardo MD) Mariah Love PA-C [Physician Senior Telecommunications Consultant] - 2 Weeks (05/23/22 2:00 [facility] Mariah Love PA-C) Discharge Medications: New celecoxib 200 mg Capsule 200 mg PO BID 30 Days Qty: 60 0RF acetaminophen 325 mg Tablet 650 mg PO Q6H PRN (Reason: Pain, Mild (Pain Scale 1-3)) 30 Days Qty: 240 0RF oxycodone 5 mg Tablet 5 mg PO Q4H PRN (Reason: Pain, Moderate (Pain Scale 4-6) 7 Days Qty: 42 0RF Rx Instructions: Partial Fill upon patient request. enoxaparin 40 mg/0.4 mL Syringe 40 mg subcut Q24H 42 Days Qty: 16.8 0RF vancomycin in 0.9 % sodium chl 1 gram/250 mL solution 1 g IV Q12H 42 Days Qty: 64827 0RF rifampin 300 mg Capsule 300 mg PO BID 90 Days Qty: 180 0RF Continued (DME) teds hose See Rx Instructions .Route .MEDSUPPLY Qty: 2 0RF Rx Instructions: As directed gabapentin 300 mg capsule 300 mg PO BEDTIME 30 Days Qty: 90 0RF allopurinol 300 mg tablet 300 mg PO DAILY Qty: 90 1RF metoprolol succinate 200 mg tablet extended release 24 hr 200 mg PO DAILY Qty: 90 3RF furosemide [Lasix] 20 mg tablet 20 mg PO DAILY Qty: 90 3RF nifedipine 60 mg tablet extended release 60 mg PO DAILY Qty: 90 3RF pantoprazole 40 mg tablet,delayed release (DR/EC) 40 mg PO DAILY 30 Days Qty: 30 6RF latanoprost 0.005 % drops 1 drp ophthalmic (eye) BEDTIME dorzolamide-timolol 22.3-6.8 mg/mL drops 1 drp ophthalmic (eye) BEDTIME multivitamin Tablet 1 tab PO DAILY loperamide [Imodium A-D] 2 mg Tablet 2 mg PO BID diphenhydramine HCl [Benadryl] 25 mg Capsule 25 mg PO BEDTIME PRN (Reason: Insomnia) ascorbic acid (vitamin C) [Vitamin C] 500 mg Tablet,Chewable 500 mg PO BID ferrous sulfate 325 mg (65 mg iron) tablet 325 mg PO DAILY atorvastatin 40 mg tablet 1 tab PO BEDTIME [id number]-ylnzrzero-RO 3.5-10,000-1 mg/mL-unit/mL-% drops,suspension 4 drp otic (ears) TID brimonidine 0.2 % drops 1 drp ophthalmic-Left BID Metamucil 3.4 gram/5.4 gram powder 1 tbsp PO BID Qty: 660 3RF Rx Instructions: mix into at least 8 oz of water or juice before administering Discontinued indomethacin 50 mg capsule 50 mg PO TID PRN (Reason: pain) 30 Days Qty: 60 2RF aspirin 81 mg tablet,delayed release (DR/EC) 81 mg PO DAILY Qty: 30 0RF Discharge Orders: Discharge Order (Routine); Ordered 05/10/22 Ordered By: Mariah Love Diet: Regular diet Activity on Discharge: Use cane or walker Stand Alone Forms: Patient Portal Discharge page Care Plan Goals: Restore function of joint Health Concerns: monitor vanco trough after every 4th dose -send results to Maryuri Gallardo ? Monitor BUN/cr weekly Monitor H/h twice a week-goal Hgb 8, if drops below 8, transfuse Plan of Treatment: Physical Therapy for Revision Total knee arthroplasty: WBAT, gait training, ROM 0-120, quad strength--use of the brace while ambulating for support * Limit stair climbing * No showering, no tub bath-keep dressing clean, dry and intact * No driving x6 weeks * Continue Lovenox once a day x 6 weeks * Follow up with [facility] Orthopedics in 2 weeks: 05/23/22 14:00 [facility] SurgeonsMariah Love PA-C * weeklyBUN/creatinine * Check Vanco trough levels after 4th dose * Keep Vanco trough level between 10 and 20 * Flush PICC line with 10 cc of normal saline 3 times a day * Routine discharge flushing with 10 mL of normal saline after blood specimen withdrawal, medication administration or post transfusion flushing Assessment: as above
[2022-05-08 21:48] LABS: Vancomycin Trough 11.1 mcg/mL (10.0-20.0)
[2022-05-08] MEDS: rifAMPin 300 MG CAPSULE PO (22:38)
[2022-05-08] MEDS: vancomycin HCL 1,250 MG in 0.9 % Sodium Chloride 250 ML 166.67 MG IV (22:39)
[2022-05-08] MEDS: diphenhydrAMINE HCL 25 MG CAPSULE PO (23:16)
[2022-05-09] VITALS (12 sets, daily range): BP systolic 123–159; BP diastolic 60–81; PULSE 66–80; RESP 16–18; TEMP 36.1–37; O2SAT 92–96
[2022-05-09] MEDS: HYDROmorphone HCl 0.5 MG/0.5 ML SYRINGE 0.25 MG IVPUSH (00:25)
[2022-05-09] MEDS: Omeprazole 20 MG CAPSULE.DR PO (05:28)
[2022-05-09 06:35] LABS: MANUAL DIFF FLAG NO
[2022-05-09 06:38] LABS: Basophils Percent Auto 0.3 % (0-2); Eosinophils Absolute Auto 0.3 X10*3/uL (0.0-0.4); Eosinophils Percent Auto 3.3 % (0-4); Hematocrit 23.5 % (42.0-52.0); Hemoglobin 7.2 g/dl (14.0-18.0); Imm Gran Abs Auto 0.01 X10*3/uL (0.00-0.03); Imm Gran Pct Auto 0.1 % (0.0-0.4); Lymphocytes Absolute Auto 1.2 X10*3/uL (1.2-4.9); Lymphocytes Percent Auto 14.8 % (20-40); Mean Corpuscular HGB Conc 30.6 g/dl (31.0-36.0); Mean Corpuscular Hemoglobin 24.5 pg (27.0-33.0); Mean Corpuscular Volume 79.9 fL (80.0-98.0); Mean Platelet Volume 9.8 fL (9.4-12.4); Monocytes Absolute Auto 0.9 X10*3/uL (0.1-1.2); Monocytes Percent Auto 11.8 % (2-11); Neutrophils Absolute Auto 5.4 x10*3/uL (2.0-8.3); Neutrophils Percent Auto 69.7 % (45-73); Platelet Count 263 X10*3/uL (160-400); Red Blood Count 2.94 X10*6/uL (4.60-5.80); Red Cell Distribution Width 16.6 % (11.0-16.0); White Blood Count 7.8 X10*3/uL (4.8-10.8)
[2022-05-09 07:01] LABS: Anion Gap 8 (12-20); Blood Urea Nitrogen 12 mg/dL (9-16); Calcium 8.4 mg/dL (8.4-10.2); Carbon Dioxide 29 mmol/L (22-29); Chloride 105 mmol/L (96-108); Creatinine Clr Calc Pharmacy 103.4; Estimated Glomerular Filt Rate > 60; Glucose Fasting 153 mg/dL (60-99); Sodium 138 mmol/L (135-145)
[2022-05-09] MEDS: Docusate Sodium 100 MG CAPSULE PO ×2 (08:23→21:30)
[2022-05-09] MEDS: Ferrous Sulfate 324 MG TABLET.DR PO (08:23)
[2022-05-09] MEDS: Furosemide 20 MG TABLET PO (08:23)
[2022-05-09] MEDS: Metoprolol Succinate ER 100 MG TAB.ER.24H 200 MG PO (08:23)
[2022-05-09] MEDS: oxyCODONE HCl ER 10 MG TAB.ER.12H PO ×2 (08:23→21:29)
[2022-05-09] MEDS: Celecoxib 200 MG CAPSULE PO ×2 (08:23→21:30)
[2022-05-09] MEDS: rifAMPin 300 MG CAPSULE PO ×2 (08:24→21:30)
[2022-05-09] MEDS: NIFEdipine ER 60 MG TAB.ER.24 PO (08:24)
[2022-05-09] MEDS: 0.9 % Sodium Chloride Flush 3 ML SYRINGE IVFLUSH ×3 (08:24→21:34)
[2022-05-09] MEDS: NeoMYCIN/Polymyxin/HC Otic Sus 10 ML DRPBTL 4 DROP EAR-BOTH ×3 (08:34→21:32)
[2022-05-09] MEDS: Brimonidine Tartrate 0.2% Oph 5 ML BOTTLE 1 DROP EYE-LEFT ×2 (08:35→21:30)
[2022-05-09] MEDS: vancomycin HCL 1,250 MG in 0.9 % Sodium Chloride 250 ML 250 MG IV (13:41)
[2022-05-09] MEDS: Enoxaparin Sodium 40 MG/0.4 ML SYRINGE SUBCUT (13:41)
--- NOTE | 2022-05-09 14:10 | P.PNIM_ITS ---
Subjective Subjective Date of Service: 05/09/22 Interval History: denies chest pain, no lightheadedness or dizziness, no palpitations, no shortness of breath noted to have drop in hematocrit denies hematemesis, no melena, for iron studies consistent with iron deficiency as well as component of anemia of chronic disease. Review of Systems GI no nausea no vomiting, no abdominal pain no urinary urgency, no frequency respiratory no cough, no shortness of breath Review of Systems: Yes all other systems are reviewed and are negative Physical Exam Vital Signs: Vital Signs: Last Vital Signs Temp 97.2 F 05/09/22 13:39 Pulse 75 05/09/22 13:39 Resp 18 05/09/22 13:39 BP 123/67 05/09/22 13:39 Pulse Ox 96 05/09/22 12:00 O2 Del Method 05/09/22 12:00 O2 Flow Rate 2.0 05/09/22 08:00 BMI result Body Mass Index 34.4 Const: Other: Gen: in no acute distress HEENT: sclera anicteric, moist mucus membranes Neck: supple Lungs: clear to auscultation bilaterally Heart: regular rate and rhythm, no murmurs Abd: soft, non-tender, non-distended Ext: right knee dressing in place Skin: pallor ,warm/well-perfused Neuro: alert and oriented x3, no focal findings Psych: appropriate affect Objective Data Active Medications Acetaminophen (Acetaminophen 325 Mg Tablet) 650 mg PO Q6H PRN PRN Reason: Pain, Mild (Pain Scale 1-3) Last Admin: 05/08/22 11:14 Dose: 650 mg Documented By: DEON Atorvastatin Calcium (Atorvastatin Calcium 40 Mg Tablet) 40 mg PO BEDTIME [facility] Last Admin: 05/08/22 20:42 Dose: 40 mg Documented By: GRABIELORALShraddha Brimonidine Tartrate (Brimonidine Tartrate 0.2% Oph 5 Ml Bottle) 1 drop EYE- LEFT BID [facility] Last Admin: 05/09/22 08:35 Dose: 1 drop Documented By: FESTUS Celecoxib (Celecoxib 200 Mg Capsule) 200 mg PO BID [facility] Last Admin: 05/09/22 08:23 Dose: 200 mg Documented By: FESTUS Diphenhydramine HCl (Diphenhydramine Hcl 25 Mg Capsule) 25 mg PO BEDTIME PRN PRN Reason: Insomnia Last Admin: 05/08/22 23:16 Dose: 25 mg Documented By: NATANAEL Docusate Sodium (Docusate Sodium 100 Mg Capsule) 100 mg PO BID [facility] Last Admin: 05/09/22 08:23 Dose: 100 mg Documented By: FESTUS Dorzolamide/Timolol (Dorzolamide/Timolo 2.23%/0.68% 10 Ml Drbtl) 1 drop EYE- BOTH BEDTIME [facility] Last Admin: 05/08/22 20:42 Dose: 1 drop Documented By: NATANAEL Enoxaparin Sodium (Enoxaparin Sodium 40 Mg/0.4 Ml Syringe) 40 mg SUBCUT Q24H [facility] Last Admin: 05/09/22 13:41 Dose: 40 mg Documented By: FESTUS Ferrous Sulfate (Ferrous Sulfate 324 Mg Tablet.Dr) 324 mg PO DAILY [facility] Last Admin: 05/09/22 08:23 Dose: 324 mg Documented By: FESTUS Furosemide (Furosemide 20 Mg Tablet) 20 mg PO DAILY [facility]; Protocol Last Admin: 05/09/22 08:23 Dose: 20 mg Documented By: FESTUS Gabapentin (Gabapentin 300 Mg Capsule) 300 mg PO BEDTIME [facility] Last Admin: 05/08/22 20:42 Dose: 300 mg Documented By: NATANAEL Hydromorphone HCl (Hydromorphone Hcl 0.5 Mg/0.5 Ml Syringe) 0.25 mg IVPUSH Q5M PRN; Protocol PRN Reason: Pain, Severe (Pain Scale 7-10) Last Admin: 05/07/22 16:25 Dose: 0.25 mg Documented By: FABIAN Hydromorphone HCl (Hydromorphone Hcl 0.5 Mg/0.5 Ml Syringe) 0.25 mg IVPUSH Q4H PRN; Protocol PRN Reason: Pain, Severe (Pain Scale 7-10) Last Admin: 05/09/22 00:25 Dose: 0.25 mg Documented By: NATANAEL Vancomycin HCl 1,250 mg/ (Sodium Chloride) 250 mls @ 166.667 mls/hr IV Q12H [facility] Last Admin: 05/09/22 13:41 Dose: 250 mls/hr Documented By: FESTUS Latanoprost (Latanoprost 0.005 % Ophth Lorena 2.5 Ml Drops) 1 drop EYE-BOTH BEDTIME [facility] Last Admin: 05/08/22 20:42 Dose: 1 drop Documented By: NATANAEL Metoprolol Succinate (Metoprolol Succinate Er 100 Mg Tab.Er.24h) 200 mg PO DAILY [facility]; Protocol Last Admin: 05/09/22 08:23 Dose: 200 mg Documented By: FESTUS Neomycin/Polymyxin/Hydrocortisone (Neomycin/Polymyxin/Hc Otic Yessy 10 Ml Drpbtl) 4 drop EAR-BOTH TID [facility] Last Admin: 05/09/22 08:34 Dose: 4 drop Documented By: FESTUS Nifedipine (Nifedipine Er 60 Mg Tab.Er.24) 60 mg PO DAILY [facility] Last Admin: 05/09/22 08:24 Dose: 60 mg Documented By: FESTUS Omeprazole (Omeprazole 20 Mg Capsule.Dr) 20 mg PO DAILY@0630 [facility] Last Admin: 05/09/22 05:28 Dose: 20 mg Documented By: NATANAEL Ondansetron HCl (Ondansetron Hcl 4 Mg/2 Ml Vial) 4 mg IVPUSH ONCE PRN PRN Reason: Nausea and Vomiting Ondansetron HCl (Ondansetron Hcl 4 Mg/2 Ml Vial) 4 mg IVPUSH Q8H PRN PRN Reason: Nausea and Vomiting Oxycodone HCl (Oxycodone Hcl Immed Release 5 Mg Tablet) 5 mg PO Q4H PRN PRN Reason: Pain, Moderate (Pain Scale 4-6 Last Admin: 05/08/22 11:14 Dose: 5 mg Documented By: DEON Oxycodone HCl (Oxycodone Hcl Er 10 Mg Tab.Er.12h) 10 mg PO BID [facility] Last Admin: 05/09/22 08:23 Dose: 10 mg Documented By: FESTUS Pharmacy Consult (Consult Rx Vancomycin Dosing) 1 each MISCELLANE DAILY PRN PRN Reason: Consult order Rifampin (Rifampin 300 Mg Capsule) 300 mg PO BID [facility] Last Admin: 05/09/22 08:24 Dose: 300 mg Documented By: FESTUS Sodium Chloride (0.9 % Sodium Chloride Flush 3 Ml Syringe) 3 ml IVFLUSH QSHIFT [facility] Last Admin: 05/09/22 08:24 Dose: 3 ml Documented By: FESTUS Labs 05/09/22 05:58 05/09/22 05:58 Labs: Laboratory Results - last 24 hr 05/06/22 05/08/22 05/09/22 16:00 21:10 05:58 MCV 79.9 L MCH 24.5 L MCHC 30.6 L RDW 16.6 H Plt Count 263 MPV 9.8 Immature Gran % (Auto) 0.1 Neut % (Auto) 69.7 Lymph % (Auto) 14.8 L Lea % (Auto) 11.8 H Eos % (Auto) 3.3 Baso % (Auto) 0.3 Lymph # (Auto) 1.2 Lea # (Auto) 0.9 Eos # (Auto) 0.3 Baso # (Auto) 0.0 Abs Immat Gran (auto) 0.01 Absolute Neuts (auto) 5.4 Absolute Nucleated RBC 0.000 Nucleated RBC % (auto) 0.0 Anion Gap Estim Creat Clear Calc Estimated GFR Fasting Glucose Calcium Vancomycin Trough 11.1 Blood Type A Positive Antibody Screen NEGATIVE Crossmatch See Detail 05/09/22 05:58 MCV MCH MCHC RDW Plt Count MPV Immature Gran % (Auto) Neut % (Auto) Lymph % (Auto) Lea % (Auto) Eos % (Auto) Baso % (Auto) Lymph # (Auto) Lea # (Auto) Eos # (Auto) Baso # (Auto) Abs Immat Gran (auto) Absolute Neuts (auto) Absolute Nucleated RBC Nucleated RBC % (auto) Anion Gap 8 L Estim Creat Clear Calc 103.4 Estimated GFR > 60 Fasting Glucose 153 H Calcium 8.4 Vancomycin Trough Blood Type Antibody Screen Crossmatch Microbiology Microbiology Results: Microbiology 05/07/22 13:28 Gram Stain - Final Knee,Right Routine Culture - Preliminary Culture in progress. Anaerobic Culture - Preliminary Culture in progress. Assessment and Plan (1) History of revision of total replacement of right knee joint: Status: Acute (2) Anemia: Status: Acute Plan 67 year old male with history of GERD, HFpEF, htn, gout, hx TIA, hx alcohol abuse, idiopathic peripheral neuropathy, prediabetes, and obesity admitted to orthopedic surgery for revision of right TKR with consult placed to medicine for medical management. #Revision right TKR - could pain control,plan per ortho surgery # acute on chronic microcytic anemia with iron deficiency and anemia of chronic disease recommend 2units of packed RBC, outpatient follow-up with Hematology and spray machine loader Dr. Nassar for follow-up on anemia. #HTN- Continue metoprolol, lasix and nifedipine #HFpEF- euvolemic continue Lasix no acute exacerbation #GERD -continue ppi #Idioppathic peripheral neuropathy -continue gabapentin #Obesity -Reocmmend weight loss efforts Thank you for allowing me to participate in this consult. Signing off at this time. Please do not hesitate to call for further questions. Time Spent With Patient Time: Total time managing care of this patient today ____ minutes. Quality Stroke Does the patient have a stroke diagnosis?: No VTE Prior VTE?: No VTE Risk Level:: Surgical - very high VTE Device Contraindication: N/A - Device Ordered VTE Drug Contraindication: N/A - Med Ordered
[2022-05-09] MEDS: oxyCODONE HCl Immed Release 5 MG TABLET PO ×2 (15:57→19:47)
[2022-05-09] MEDS: Latanoprost 0.005 % Ophth Sol 2.5 ML DROPS 1 DROP EYE-BOTH (21:28)
[2022-05-09] MEDS: Gabapentin 300 MG CAPSULE PO (21:30)
[2022-05-09] MEDS: Dorzolamide/Timolo 2.23%/0.68% 10 ML DRBTL 1 DROP EYE-BOTH (21:30)
[2022-05-09] MEDS: Atorvastatin Calcium 40 MG TABLET PO (21:30)
[2022-05-09 21:43] LABS: Vancomycin Random 19.4 mcg/mL (15-20)
--- NOTE | 2022-05-09 21:48 | HE.PHANOTE ---
Vancomycin Dosing Level today 19.4, increased from 11.1 on 05/08. Since level increased greatly, will decrease dose to vancomycin 1000 mg Q12H. New expected AUC 461 with a trough of 15.3. Next level schedule in 24 hours on 05/10 @ 2100. Tyler TiradoD
[2022-05-09] MEDS: vancomycin HCL 1,000 MG in 0.9 % Sodium Chloride 250 ML 270 MG IV (23:14)
[2022-05-10 02:23] VITALS: BP 170/83; PULSE 69; RESP 20; TEMP 37.1; O2SAT 93
[2022-05-10] MEDS: oxyCODONE HCl Immed Release 5 MG TABLET PO (05:10)
[2022-05-10] MEDS: Omeprazole 20 MG CAPSULE.DR PO (05:10)
[2022-05-10 06:30] LABS: MANUAL DIFF FLAG NO
[2022-05-10 06:36] LABS: Basophils Absolute Auto 0.1 X10*3/uL (0.0-0.2); Basophils Percent Auto 0.7 % (0-2); Eosinophils Absolute Auto 0.6 X10*3/uL (0.0-0.4); Eosinophils Percent Auto 6.7 % (0-4); Hemoglobin 9.1 g/dl (14.0-18.0); Imm Gran Abs Auto 0.09 X10*3/uL (0.00-0.03); Imm Gran Pct Auto 1.1 % (0.0-0.4); Lymphocytes Absolute Auto 1.5 X10*3/uL (1.2-4.9); Mean Corpuscular HGB Conc 31.4 g/dl (31.0-36.0); Mean Corpuscular Hemoglobin 25.7 pg (27.0-33.0); Mean Corpuscular Volume 81.9 fL (80.0-98.0); Mean Platelet Volume 10.1 fL (9.4-12.4); Monocytes Percent Auto 11.4 % (2-11); Neutrophils Absolute Auto 5.3 x10*3/uL (2.0-8.3); Neutrophils Percent Auto 62.1 % (45-73); Platelet Count 290 X10*3/uL (160-400); Red Blood Count 3.54 X10*6/uL (4.60-5.80); Red Cell Distribution Width 17.1 % (11.0-16.0); White Blood Count 8.6 X10*3/uL (4.8-10.8)
[2022-05-10 06:53] LABS: Anion Gap 12 (12-20); Blood Urea Nitrogen 18 mg/dL (9-16); Calcium 8.9 mg/dL (8.4-10.2); Carbon Dioxide 27 mmol/L (22-29); Chloride 104 mmol/L (96-108); Creatinine Clr Calc Pharmacy 102.2; Estimated Glomerular Filt Rate > 60; Glucose Fasting 102 mg/dL (60-99); Sodium 139 mmol/L (135-145)
--- NOTE | 2022-05-10 07:06 | HE.PHANOTE ---
YONIS MATIAS CONTINUE CURRENT DOSE, NEXT LEVEL DUE @2100. ADJUST DOSE ACCORDINGLY. MAXIMINO
[2022-05-10 08:00] VITALS: BP 164/84; PULSE 69; RESP 16; TEMP 36.6; O2SAT 96
[2022-05-10] MEDS: 0.9 % Sodium Chloride Flush 3 ML SYRINGE IVFLUSH ×2 (08:34→16:16)
[2022-05-10] MEDS: NIFEdipine ER 60 MG TAB.ER.24 PO (08:34)
[2022-05-10] MEDS: Docusate Sodium 100 MG CAPSULE PO (08:35)
[2022-05-10] MEDS: Furosemide 20 MG TABLET PO (08:35)
[2022-05-10] MEDS: Metoprolol Succinate ER 100 MG TAB.ER.24H 200 MG PO (08:35)
[2022-05-10] MEDS: Ferrous Sulfate 324 MG TABLET.DR PO (08:35)
[2022-05-10] MEDS: rifAMPin 300 MG CAPSULE PO (08:35)
[2022-05-10] MEDS: oxyCODONE HCl ER 10 MG TAB.ER.12H PO (08:35)
[2022-05-10] MEDS: Celecoxib 200 MG CAPSULE PO (08:35)
[2022-05-10] MEDS: NeoMYCIN/Polymyxin/HC Otic Sus 10 ML DRPBTL 4 DROP EAR-BOTH ×2 (08:36→16:11)
[2022-05-10] MEDS: Dorzolamide/Timolo 2.23%/0.68% 10 ML DRBTL 1 DROP EYE-BOTH (08:36)
[2022-05-10] MEDS: Brimonidine Tartrate 0.2% Oph 5 ML BOTTLE 1 DROP EYE-LEFT (08:37)
[2022-05-10 10:20] VITALS: BP 164/84; PULSE 69; O2SAT 96
[2022-05-10] MEDS: Enoxaparin Sodium 40 MG/0.4 ML SYRINGE SUBCUT (12:03)
[2022-05-10] MEDS: vancomycin HCL 1,000 MG in 0.9 % Sodium Chloride 250 ML 270 MG IV (12:14)
--- NOTE | 2022-05-10 12:27 | MHC.CM.PN ---
Addendum entered by Dana Allison 05/10/22 12:31: TRANSPORT WILL BE AT 1500 HOURS TO ENSURE PTS VANCO DOSE HAS BEEN FULLY ADMINISTERED AND HIS COVID RESULTS ARE BACK SNF, PT, AND RN AWARE Original Note: CM MET WITH PT TO DISCUSS DC PLANNING PT IS AWARE HE HAS MULTIPLE BED OFFERS HE REPORTED HE WOULD LIKE TO CALL HIS COUSIN WHO WORKS IN THE FIELD PT HAS INDICATED [facility] IS HIS PREFERRED SNF HE WILL DC AT 1400 HOURS [facility] PENDING A NEGATIVE COVID RESULT
[2022-05-10 12:42] LABS: IDNOW Serial# 6674DD1D
[2022-05-10 12:43] LABS: COVID-19 Test Negative (Negative)
[2022-05-10 16:00] VITALS: BP 143/81; PULSE 63; RESP 18; TEMP 36.7; O2SAT 95
--- NOTE | 2022-05-21 10:19 | P.OP_ITS ---
Operative Note Operative Note Date of Service: 05/10/22 Narrative: Date of Service: 05/07/22 Pre-op diagnosis: Infected right knee prosthesis Post-op diagnosis: same Procedure: Resection arthroplasty and placement of antibiotic articulating spacer Implants: Louis Remedy knee antibiotic spacer Surgeon: Julian Chavarria MD Anesthesia: GETA and regional Was an Air Conditioning Engineer used for this Procedure?: Yes Air Conditioning Engineer: Mariah Love Estimated blood loss (mL): 250 IV fluids (mL): 1,000 Pathology: other Condition: stable Disposition: PACU Patient was brought to the operating room and placed supine on the surgical table. He was prepped and draped in standard sterile fashion and a time out was called to identify proper site, proper procedure and IV antibiotics per weight were administered. I began by insufflating the tourniquet to 300 mm Hg. I then open the prior midling incision down to the retinaculum. I made a medial peripatellar arthrotomy thorough the prior incision. Suture remnants were removed. I translated the patella laterally and removed fibrous tissue and necrotic fat. There was a sinus that was excised from the skin to the medial plateau just distal to the baseplate. There was purulence and necrotic debris with soft bone at this location. I extended the arthrotomy proximal but did not require a snip to access the femur. I removed the poly with an osteotome and then I used a flexible osteotome to slowly and circumferentially remove the femoral implant from the femur. This was done with almost no bone loss. There was no evidence of infection under the femoral component. I then turned my attention to the tibia. There was necrotic bone anteromedially but no additional areas of renny infection were identified. Again I used a flexible osteotome to remove the implant. This was already loose and was removed with minimal bone loss adjacent to the lateral aspect of the keel. I then used a saggital saw to remove the patella and the lugs were removed with a rongeur. I then used a combination of a rongeur, curette, cautery and sharp dissection to remove all extraneous soft tissue from the joint, bony surfaces and surrounding tissues. The bony surfaces were debrided down to healthy tissue as was the posterior capsule. Once I was satisfied with the debridement unused sterile instruments and drapes were prepared. A medium Remedy spacer was selected and 2 bags of Gentymycin cement was mixed with 8 g of Vancomycin powder. Once this was almost dry the components were loosely cemented in in extension. Approximately 1/2 of the cement was utilized. I was able to range the knee 90 degrees and the implants were stable as was the knee to v/v stress. A Werewolf cautery wand was used to maintain hemostasis. The wound was then fully closed with prolene for the capsule and nylon for the skin. Patient was placed in a hinged knee brace and extubated and brought to the recovery room in stable condition. There were no known complications.
== END 2022-05-10 17:12 | disposition skilled nursing facility (03) | DRG 486 ==
LOC: HO.SSSA 09:47 → HO.S3 16:27
PROVIDERS: Internal Medicine Medical Oncology; Orthopaedic Surgery; Physician Assistant; Admitting Provider Physician Assistant; PCP Internal Medicine; Visit Provider Physician Assistant
PROC: 0SHC08Z Insertion of Spacer into Right Knee Joint, Open Approach (ICD-10-PCS; CPT 27487; principal; 2022-05-07 11:50)
DX: T84.53XA Infection and inflammatory reaction due to internal right knee prosthesis, initial encounter (principal); I50.32 Chronic diastolic (congestive) heart failure; F10.21 Alcohol dependence, in remission; I11.0 Hypertensive heart disease with heart failure; K21.9 Gastro-esophageal reflux disease without esophagitis; G60.9 Hereditary and idiopathic neuropathy, unspecified; G47.33 Obstructive sleep apnea (adult) (pediatric); D50.9 Iron deficiency anemia, unspecified; D63.8 Anemia in other chronic diseases classified elsewhere; E66.9 Obesity, unspecified; Z68.34 Body mass index [BMI] 34.0-34.9, adult; Z20.822 Contact with and (suspected) exposure to COVID-19; Z86.73 Personal history of transient ischemic attack (TIA), and cerebral infarction without residual deficits; Z88.8 Allergy status to other drugs, medicaments and biological substances; Z79.899 Other long term (current) drug therapy
CPT/HCPCS: 36415; 36573; 80048; 80202; 82565; 82947; 85014; 85018; 85025; 86850; 86900; 86901; 86923; 87070; 87073; 87077; 87186; 87205; 87635; 87640; 87641; 97110; 97116; 97162; C1713; C1751; C1776; J1170; J1650; J2370; J2795; J3010; J3370; J3371; P9016

== ENCOUNTER → 2022-05-14 11:14 | Outpatient (BNVA) | payer MEDICARE, SELFPAY | PROVIDERS: PCP Internal Medicine; Visit Provider Physician Assistant | DX: Z13.89 Encounter for screening for other disorder (principal) | CPT/HCPCS: 99212 ==

== ENCOUNTER → 2022-05-17 12:12 | Outpatient (BNVA) | payer MEDICARE, SELFPAY | PROVIDERS: PCP Internal Medicine; Visit Provider Physician Assistant | DX: Z47.1 Aftercare following joint replacement surgery (principal); T84.032A Mechanical loosening of internal right knee prosthetic joint, initial encounter; Z96.651 Presence of right artificial knee joint | CPT/HCPCS: 99212 ==

== ENCOUNTER 2022-05-23 14:02 | Outpatient (REF) | payer MEDICARE, BC, OTHER, SELFPAY ==
--- NOTE | ~2022-05-23 | XR_ITS ---
EXAMINATION: XR KNEE, RIGHT CLINICAL INFORMATION: Pain. COMPARISON: Prior radiographs, most recently 04/01/2022. TECHNIQUE: AP and lateral views of the right knee. FINDINGS: Bony mineralization is normal. There has been interim replacement of the patient's left knee total arthroplasty, with intact cemented prosthesis and surgical skin kunal. There is postoperative lucency adjacent to the tibial stem. Anterior surgical skin kunal and subcutaneous edema are noted. XR/XR knee RT 2V IMPRESSION: There is interim replacement of the patient's right knee total arthroplasty, with cemented prosthesis now noted. No periprosthetic fracture or apparent postoperative loosening is seen.
== END 2022-05-23 14:03 | disposition home or self-care (01) ==
LOC: HO.HOSX 14:02
PROVIDERS: PCP Internal Medicine; Visit Provider Physician Assistant
DX: T84.032A Mechanical loosening of internal right knee prosthetic joint, initial encounter (principal); Z96.651 Presence of right artificial knee joint
CPT/HCPCS: 73560; 99212

== ENCOUNTER → 2022-05-30 11:06 | Outpatient (BNVA) | payer MEDICARE, SELFPAY | PROVIDERS: PCP Internal Medicine; Visit Provider Physician Assistant | DX: Z47.1 Aftercare following joint replacement surgery (principal); T84.032D Mechanical loosening of internal right knee prosthetic joint, subsequent encounter; Z96.651 Presence of right artificial knee joint | CPT/HCPCS: 99212 ==

== ENCOUNTER → 2022-06-07 11:25 | Outpatient (BNVA) | payer MEDICARE, SELFPAY | PROVIDERS: PCP Internal Medicine; Visit Provider Physician Assistant | DX: Z47.1 Aftercare following joint replacement surgery (principal); T84.032D Mechanical loosening of internal right knee prosthetic joint, subsequent encounter; Z96.651 Presence of right artificial knee joint | CPT/HCPCS: 99212 ==

== ENCOUNTER → 2022-06-28 14:07 | Outpatient (BNVA) | payer MEDICARE, BC, SELFPAY | PROVIDERS: PCP Internal Medicine; Visit Provider Internal Medicine | DX: Z96.651 Presence of right artificial knee joint (principal); Z79.2 Long term (current) use of antibiotics | CPT/HCPCS: 99212 ==

== ENCOUNTER 2022-07-08 13:59 | Outpatient (REF) | payer MEDICARE, SELFPAY ==
[2022-07-08 17:17] LABS: Erythrocyte Sedimentation Rate 6 MM/HR (0-15)
== END 2022-07-08 14:00 | disposition home or self-care (01) ==
LOC: HO.HMGCLDS 13:59
PROVIDERS: PCP Internal Medicine; Visit Provider Orthopaedic Surgery
DX: Z96.651 Presence of right artificial knee joint (principal)
CPT/HCPCS: 36415; 85652; 86140

== ENCOUNTER → 2022-07-11 12:58 | Outpatient (BNVA) | payer MEDICARE, BC, SELFPAY | PROVIDERS: PCP Internal Medicine; Visit Provider Orthopaedic Surgery | DX: Z47.1 Aftercare following joint replacement surgery (principal); Z96.651 Presence of right artificial knee joint | CPT/HCPCS: 99212 ==

== ENCOUNTER → 2022-07-18 14:14 | Outpatient (BNVA) | payer MEDICARE, BC, SELFPAY | PROVIDERS: PCP Internal Medicine; Visit Provider Psychiatry & Neurology Neurology | DX: I63.81 Other cerebral infarction due to occlusion or stenosis of small artery (principal); R40.4 Transient alteration of awareness; G47.33 Obstructive sleep apnea (adult) (pediatric); Z99.89 Dependence on other enabling machines and devices; Z91.148 Patient's other noncompliance with medication regimen for other reason | CPT/HCPCS: 99202 ==

== ENCOUNTER → 2022-07-25 10:07 | Outpatient (BNVA) | payer MEDICARE, BC, SELFPAY | PROVIDERS: PCP Internal Medicine; Visit Provider Orthopaedic Surgery | DX: Z01.818 Encounter for other preprocedural examination (principal); Z96.651 Presence of right artificial knee joint | CPT/HCPCS: 20610; 99212 ==

== ENCOUNTER 2022-07-26 14:03 | Outpatient (REF) | payer MEDICARE, BC, SELFPAY ==
--- NOTE | ~2022-07-26 | US_ITS ---
EXAMINATION: US EXTRACRANIAL CAROTID DUPLEX, BILATERAL CLINICAL INFORMATION: TIA. Multiple lacunar infarcts. COMPARISON: None available. TECHNIQUE: Real-time ultrasound and Doppler techniques (integrating B-mode 2-D vascular images, Doppler spectral analysis and color-flow Doppler imaging) were utilized to interrogate the extracranial carotid arteries, the vertebral arteries and proximal subclavian arteries bilaterally. The degree of stenosis is determined by criteria similar to NASCET. FINDINGS: Right Side: 1. There is mild atherosclerotic plaque seen in the bifurcation/proximal ICA region. 2. The common carotid artery PSV proximally is 93cm/s and distally 77cm/s. 3. The proximal internal carotid artery velocities are 42cm/s systolic and 12cm/s diastolic. 4. The proximal external carotid artery PSV is 72cm/s. 5. The vertebral artery shows antegrade flow. 6. The subclavian artery waveforms are normal. Left Side: 1. There is no atherosclerotic plaque seen in the bifurcation/proximal ICA region. 2. The common carotid artery PSV proximally is 92cm/s and distally 101 cm/s. 3. The proximal internal carotid artery velocities are 79 cm/s systolic and 15 cm/s diastolic. 4. The proximal external carotid artery PSV is 59 cm/s. 5. The vertebral artery shows antegrade flow. 6. The subclavian artery waveforms are normal. Incidental note made of an irregular cardiac rhythm. US/US carotid duplex BI IMPRESSION: 1. RIGHT: Minimal, non-hemodynamically significant stenosis of the proximal right internal carotid artery corresponding to a 0-49% stenosis by velocity criteria. 2. LEFT: Normal left internal carotid artery without atherosclerotic plaque or hemodynamically significant stenosis. 3. Incidental note made of an irregular cardiac rhythm. Correlate clinically.
== END 2022-07-26 14:04 | disposition home or self-care (01) ==
LOC: HO.HMGCX 14:03
PROVIDERS: PCP Internal Medicine; Visit Provider Psychiatry & Neurology Neurology
DX: Z86.73 Personal history of transient ischemic attack (TIA), and cerebral infarction without residual deficits (principal)
CPT/HCPCS: 93880

== ENCOUNTER 2022-07-31 06:09 | Inpatient (IN) | payer MEDICARE, BC, SELFPAY ==
[2022-07-22 14:07] VITALS: BP 117/68; PULSE 58; RESP 16; O2SAT 96; BMI 31.3
--- NOTE | 2022-07-22 14:28 | P.CONAN_ITS ---
Documented by User: More Deutsch NP 07/30/22 12:03 HPI - Anesthesia Eval Consult details Narrative: 67yo M for Right Knee Total Revision, 07/31/22 PCP cleared s/p revision 04/2022 with abx spacer (spinal and block) - had 6 weeks vanco postop, no longer has PICC s/p initial TKA 02/2021 PMFSH Active Problems Active Problems: All Active Problems (Updated 07/22/22 @ 14:21 by Fadumo Burroughs RN) Glaucoma (Acute) Acute diastolic CHF (congestive heart failure) (Acute) Acute respiratory failure with hypoxia (Acute) Diastolic dysfunction (Acute) VY (obstructive sleep apnea) (Acute) Hospital discharge follow-up (Acute) C. difficile diarrhea (Acute) Obesity (BMI 30-39.9) (Acute) Coronary artery calcification seen on CAT scan (Acute) Knee pain, right (Acute) Osteoarthritis of right knee (Acute) Irritable bowel syndrome with diarrhea (Acute) Pre-op evaluation (Acute) Left ankle sprain (Acute) Fracture of distal end of left fibula (Acute) S/P knee replacement (Acute) Status post total right knee replacement (Acute) Encounter for general adult medical examination with abnormal findings (Acute) Anemia (Acute) Swelling of knee joint, right (Acute) Swelling of right lower extremity (Acute) Chronic right-sided heart failure (Acute) Viral infection (Acute) TIA (transient ischemic attack) (Acute) CVA (cerebral vascular accident) (Acute) Iron deficiency (Acute) History of total right knee replacement (Acute) Speech impairment (Acute) Bilateral impacted cerumen (Acute) Risk for falls (Acute) Loosening of prosthesis of right total knee replacement (Acute) Open wound (Acute) Preoperative cardiovascular examination (Acute) Normochromic normocytic anemia (Acute) History of revision of total replacement of right knee joint (Acute) VY on CPAP (Acute) Multiple lacunar infarcts (Acute) Transient alteration of awareness (Acute) Chronic right heart failure (Acute) Nocturnal hypoxemia (Acute) VY (obstructive sleep apnea) (Acute) Chronic heart failure with preserved ejection fraction (HFpEF) (Acute) Essential hypertension (Acute) Ascending aorta dilation (Acute) Obesity (BMI 30-39.9) (Acute) Shoulder injury (Acute) Lumbar spondylosis (Acute) Chronic diarrhea (Acute) Idiopathic peripheral neuropathy (Acute) Morbid obesity (Acute) Gout (Acute) HTN (hypertension) (Acute) Pre-diabetes (Acute) Past Medical History Medical History Arthritis Ascending aorta dilation Back pain C. difficile diarrhea Chronic diarrhea Chronic heart failure with preserved ejection fraction (HFpEF) Chronic right heart failure Diarrhea Environmental allergies Essential hypertension GERD (gastroesophageal reflux disease) Gout Hiatal hernia History of alcoholism History of esophageal varices History of GI bleed History of TIA (transient ischemic attack) History of Zwbcm-Cdxsgzscu-Vgtom (WPW) syndrome HTN (hypertension) Idiopathic peripheral neuropathy Lumbar spondylosis Morbid obesity Multiple lacunar infarcts Nocturnal hypoxemia Obesity (BMI 30-39.9) On beta miguel at home VY (obstructive sleep apnea) VY on CPAP Pre-diabetes Routine medical exam Shoulder injury Transient alteration of awareness Family History Family History Father Diabetes mellitus Family history of problems with anesthesia: No Surgical History Surgical History H/O cardiac radiofrequency ablation History of colonoscopy History of esophagogastroduodenoscopy (EGD) Hx of total knee replacement S/P PICC central line placement History of Problems with Anesthesia: No Social History Social History Household Members: Significant Other and Family Household Members Other:: BROTHER Housing: House Are you a primary nurse care manager to a significant other at home: No Do you presently have visiting nurse or other home services: No Alcohol intake: former Year quit: 1998 Patient Tobacco Use Status: Never used Tobacco e-Cigarette/Vaping Use: Never Used Second Hand Smoke Exposure: Yes Use of substances other than those prescribed or required for medical reasons: No Currently Displaying Signs/Symptoms of Drug Intoxication Withdrawal: No Have you been hit, kicked, punched, or otherwise hurt by someone within the past year? If so, by whom?: No Do you feel safe in your current relationship?: Yes Is there a partner from a previous relationship who is making you feel unsafe now?: No Are you made to feel afraid or neglected: No Spiritual Healthcare Practices: none [facility] Practices: none Cultural Healthcare Practices: none Are you DNR?: No Advance Directives: Yes Advance Directives Information Provided: No Advance Directives on File: Yes Advance Directives Date on File: 05/03/20 Do you have thoughts of harming others: None Recently lost weight without trying: No Nutrition Risks: No Nutritional Risk Poor oral hygiene: No service: No Current occupational status: retired 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 Cognitive needs: No Hearing needs: No Vision needs: Yes Meds Allergies Allergy/AdvReac Type Severity Reaction Status Date / Time lisinopril [LISINOPRIL] Allergy Severe TONGUE Verified 07/30/22 09:11 SWELLING, CONFUSION Home Medications Medication Instructions Recorded Confirmed Last Taken Type dorzolamide 22.3 mg-timolol 6.8 1 drp ophthalmic (eye) BEDTIME 12/07/19 07/30/22 04/02/21 History mg/mL eye drops latanoprost 0.005 % eye drops 1 drp ophthalmic (eye) BEDTIME 12/07/19 07/30/22 03/11/22 History brimonidine 0.2 % eye drops 1 drp ophthalmic-Left BID 02/16/21 07/30/22 03/11/22 History ascorbic acid (vitamin C) 500 mg 500 mg PO BID 04/03/21 07/30/22 03/11/22 History chewable tablet (Vitamin C) diphenhydramine HCl 25 mg capsule 25 mg PO BEDTIME PRN Insomnia 04/03/21 07/30/22 Unknown History (Benadryl) loperamide 2 mg tablet (Imodium 2 mg PO BID PRN Diarrhea 04/03/21 07/30/22 Unknown History A-D) multivitamin 1 tab PO DAILY 04/03/21 07/30/22 03/11/22 History atorvastatin 40 mg tablet 40 mg PO BEDTIME 07/31/22 07/31/22 Unknown History Exam Exam Date and Time: July 22, 2022 1428 Height,Weight and Vital Signs: Height 5 ft 9 in Weight 96.162 kg Last Vital Signs Pulse 58 07/22/22 14:07 Resp 16 07/22/22 14:07 BP 117/68 07/22/22 14:07 Pulse Ox 96 07/22/22 14:07 O2 Del Method Room Air 07/22/22 14:07 Pertinent Lab Results Pertinent Lab Results: Laboratory Tests 07/05/22 07/05/22 13:58 13:58 WBC 5.1 Hgb 11.6 L D Hct 35.6 L D Plt Count 242 Sodium 142 Potassium 4.4 Chloride 107 Carbon Dioxide 28 BUN 23 H Creatinine 1.07 Narrative Narrative: EKG 03/2022 Vent. Rate : 061 BPM ? ? Atrial Rate : 061 BPM ?? P-R Int : 168 ms? QRS Dur : 100 ms ? ? QT Int : 412 ms ? ? ? P-R-T Axes : 004 -38 -04 degrees ?? QTc Int : 414 ms ? Normal sinus rhythm Left axis deviation Minimal voltage criteria for LVH, may be normal variant ( R in aVL ) Abnormal ECG When compared with ECG of 28-FEB-2021 13:17, No significant change was found ECHO 03/2022 Conclusions: - The left ventricular systolic function is normal.? The visually estimated ejection fraction is between 60-65%. ? - Even with contrast, difficult to assess wall motion, but ? ? ? grossly no overt findings. ? - There is mild aortic valve regurgitation.? - There is moderate dilatation of the sinuses of Valsalva? measuring 4.40 cm and moderate dilatation of the ascending aorta measuring 4.50 cm. ? NM cardiolite stress test 09/2020 Impression: ? 1.? Myocardial perfusion imaging study shows normal myocardial perfusion 2.? Gated LVEF is 60% 3. Transient ischemic dilatation not present ? EKG is nondiagnostic for ischemia US carotid duplex BI 07/2022 IMPRESSION: 1. RIGHT: Minimal, non-hemodynamically significant stenosis of the proximal right internal carotid artery corresponding to a 0-49% stenosis by velocity criteria. ? 2. LEFT: Normal left internal carotid artery without atherosclerotic plaque or hemodynamically significant stenosis. ? 3. Incidental note made of an irregular cardiac rhythm. Correlate clinically. ? Airway Mallampati Class: II (Small mouth) TM Dist: >3cm Neck ROM: Full Loose/Missing/Broken Teeth: Yes (Multiple missing and broken throughout) Heart: RRR Lungs: CTAB Assessment and Plan Assessment Anesthesia Assessment: Anesthesia Plan Discussed and PAT Visit Final Anesthetic Review Family History of Problems with Anesthesia: No History of Problems with Anesthesia: No Documented by User: Marco Arroyo MD 07/31/22 18:10 HPI - Anesthesia Eval Consult details Narrative: 67yo M for Right Knee Total Revision, 07/31/22 PCP cleared s/p revision 04/2022 with abx spacer (spinal and block) - had 6 weeks vanco postop, no longer has PICC s/p initial TKA 02/2021 patient has a history of transient confusion in the past . [facility] Past Medical History Medical History Arthritis Ascending aorta dilation Back pain C. difficile diarrhea Chronic diarrhea Chronic heart failure with preserved ejection fraction (HFpEF) Chronic right heart failure Diarrhea Environmental allergies Essential hypertension GERD (gastroesophageal reflux disease) Gout Hiatal hernia History of alcoholism History of esophageal varices History of GI bleed History of TIA (transient ischemic attack) History of Feecb-Cgkkjdwla-Twlkx (WPW) syndrome HTN (hypertension) Idiopathic peripheral neuropathy Lumbar spondylosis Morbid obesity Multiple lacunar infarcts Nocturnal hypoxemia Obesity (BMI 30-39.9) On beta miguel at home VY (obstructive sleep apnea) VY on CPAP Pre-diabetes Routine medical exam Shoulder injury Transient alteration of awareness Family History Family History Father Diabetes mellitus Surgical History Surgical History H/O cardiac radiofrequency ablation History of colonoscopy History of esophagogastroduodenoscopy (EGD) Hx of total knee replacement S/P PICC central line placement Social History Social History Household Members: Significant Other and Family Household Members Other:: BROTHER Housing: House Are you a primary nurse care manager to a significant other at home: No Do you presently have visiting nurse or other home services: No Alcohol intake: former Year quit: 1998 Patient Tobacco Use Status: Never used Tobacco e-Cigarette/Vaping Use: Never Used Second Hand Smoke Exposure: Yes Use of substances other than those prescribed or required for medical reasons: No Currently Displaying Signs/Symptoms of Drug Intoxication Withdrawal: No Have you been hit, kicked, punched, or otherwise hurt by someone within the past year? If so, by whom?: No Do you feel safe in your current relationship?: Yes Is there a partner from a previous relationship who is making you feel unsafe now?: No Are you made to feel afraid or neglected: No Spiritual Healthcare Practices: none [facility] Practices: none Cultural Healthcare Practices: none Are you DNR?: No Advance Directives: Yes Advance Directives Information Provided: No Advance Directives on File: Yes Advance Directives Date on File: 05/03/20 Do you have thoughts of harming others: None Recently lost weight without trying: No Nutrition Risks: No Nutritional Risk Poor oral hygiene: No service: No Current occupational status: retired 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 Cognitive needs: No Hearing needs: No Vision needs: Yes Meds Allergies Allergy/AdvReac Type Severity Reaction Status Date / Time lisinopril [LISINOPRIL] Allergy Severe TONGUE Verified 07/30/22 09:11 SWELLING, CONFUSION Home Medications Medication Instructions Recorded Confirmed Last Taken Type dorzolamide 22.3 mg-timolol 6.8 1 drp ophthalmic (eye) BEDTIME 12/07/19 07/30/22 04/02/21 History mg/mL eye drops latanoprost 0.005 % eye drops 1 drp ophthalmic (eye) BEDTIME 12/07/19 07/30/22 03/11/22 History brimonidine 0.2 % eye drops 1 drp ophthalmic-Left BID 02/16/21 07/30/22 03/11/22 History ascorbic acid (vitamin C) 500 mg 500 mg PO BID 04/03/21 07/30/22 03/11/22 History chewable tablet (Vitamin C) diphenhydramine HCl 25 mg capsule 25 mg PO BEDTIME PRN Insomnia 04/03/21 07/30/22 Unknown History (Benadryl) loperamide 2 mg tablet (Imodium 2 mg PO BID PRN Diarrhea 04/03/21 07/30/22 Unknown History A-D) multivitamin 1 tab PO DAILY 04/03/21 07/30/22 03/11/22 History atorvastatin 40 mg tablet 40 mg PO BEDTIME 07/31/22 07/31/22 Unknown History Assessment and Plan Assessment Anesthesia Assessment: Chart Reviewed Final Anesthetic Review ASA Class: III Final Preanesthetic Review: Meds/Allgs Chart Reviewed, Consent Obtained/Reviewed and Anes Risks/Benef Reviewed Patient Risk: High Procedure Risk: Intermediate Anesthetic Plan Anesthetic Plan: Spinal, Regional Block and Agree w/ Assess. and Plan Disposition: Standard PACU and Inp. Admit - Standard Bed
[2022-07-22 16:20] LABS: MRSA Nasal PCR NEGATIVE (Negative); SA Nasal PCR NEGATIVE (Negative)
[2022-07-31] VITALS (16 sets, daily range): BP systolic 87–135; BP diastolic 60–73; PULSE 47–68; RESP 9–22; TEMP 36–36.6; O2SAT 90–100
--- NOTE | ~2022-07-31 | XR_ITS ---
EXAMINATION: XR KNEE, RIGHT CLINICAL INFORMATION: Status post right total knee arthroplasty COMPARISON: May 23, 2022 TECHNIQUE: AP and lateral views of the right knee. FINDINGS: Patient status post revision total arthroplasty of the right knee. Femoral and tibial components appear to be in position without evidence of acute fracture or dislocation. Hardware appears intact. There is some air seen from the recent surgery. Staple line in place. XR/XR knee RT 2V IMPRESSION: Satisfactory appearance status post placement of revision right total knee arthroplasty.
--- NOTE | ~2022-07-31 | XR_ITS ---
EXAMINATION: XR KNEE, RIGHT CLINICAL INFORMATION: Right knee replacement COMPARISON: Previous x-ray most recent May 2022 TECHNIQUE: 2 of the right knee. FINDINGS: There is a new 3 component right knee replacement in satisfactory position. No fracture or dislocation. Postoperative changes to the soft tissues. XR/XR knee RT 2V IMPRESSION: Satisfactory appearance of right knee replacement.
[2022-07-31 06:39] LABS: Hematocrit 36.8 % (42.0-52.0); Hemoglobin 12.1 g/dl (14.0-18.0)
--- NOTE | 2022-07-31 07:05 | PHA.MEDREC ---
Pharmacy Consult ? Medication Reconciliation Pharmacy has completed the medication reconciliation. Reviewed med rec done by nursing
[2022-07-31] MEDS: Lactated Ringers 1,000 ML 50 ML IVCONT (07:14)
--- NOTE | 2022-07-31 07:47 | MHC.SHP ---
Pre-Procedural Eval Section A Date of Service: 07/31/22 The patient is an INPATIENT: No Changes since office visit: No Cold of Flu in the past 2 weeks, No New Medical Problems, No Changes in Medication and No Patient answered all questions The History & Physical has been completed within 30 days and I have reviewed it.: Yes Section B Chief Complaint: Infection and inflammatory reaction due to interna Allergies: Allergies Allergy/AdvReac Type Severity Reaction Status Date / Time lisinopril [LISINOPRIL] Allergy Severe TONGUE Verified 07/30/22 09:11 SWELLING, CONFUSION Plan I have reviewed the history and physical and performed a pertinent physical examination on my patient. No changes have occurred unless specified. Time Spent With Patient Time: Total time managing care of this patient today ____ minutes.
--- NOTE | 2022-07-31 11:32 | P.BOP_ITS ---
Brief Operative Note Date of Service: 07/31/22 Pre-op diagnosis: Right knee prosthetic infection Post-op diagnosis: same Procedure: Revision right knee replacement Implants: [place] [employer] TS #4 femur with 100 mm stem and [address] augment, 5 ml PM augment and 5 mm distal augments bilateral with #5 stem and 5 mm medail and lateral augment with 32 a patella and 19 mm TS spacer Surgeon: Julian Chavarria MD Anesthesia: regional and spinal Was an Voip Network Technician used for this Procedure?: Yes Voip Network Technician: Dianna Schulz Estimated blood loss (mL): 200 Tourniquet time (min): 81 IV fluids (mL): 1,200 Pathology: none sent Condition: stable Disposition: PACU
[2022-07-31] MEDS: HYDROmorphone HCl 0.5 MG/0.5 ML SYRINGE 0.25 MG IVPUSH ×4 (12:41→13:10)
--- NOTE | 2022-07-31 14:30 | HO.PM.IMCN ---
History of Present Illness Data of Consult Service Date: 07/31/22 Requesting physician: Julian Chavarria Primary Care Provider: Conchita Chavis MD HPI Reason for consult: medical H&P 67 year old male with history of GERD, HFpEF, htn, gout, hx TIA, hx alcohol abuse, idiopathic peripheral neuropathy, prediabetes, and obesity admitted to orthopedic surgery for revision of right TKR with consult placed to medicine for medical management. He was here in 05/2022 for revision of the right TKR and had abx spacer placed and replacement earlier today. He is reporting pain in the right knee. Otherwise no complaints. Reports last etoh was 1998, denies smoking or illicit drug use hx. He has no complaints this morning. Sitting up in bed, eating breakfast. Review of Systems Review of Systems: Yes all other systems are reviewed and are negative [facility] Medical History Arthritis Ascending aorta dilation Back pain C. difficile diarrhea Chronic diarrhea Chronic heart failure with preserved ejection fraction (HFpEF) Chronic right heart failure Diarrhea Environmental allergies Essential hypertension GERD (gastroesophageal reflux disease) Gout Hiatal hernia History of alcoholism History of esophageal varices History of GI bleed History of TIA (transient ischemic attack) History of Tepje-Ftumneaux-Wwdjr (WPW) syndrome HTN (hypertension) Idiopathic peripheral neuropathy Lumbar spondylosis Morbid obesity Multiple lacunar infarcts Nocturnal hypoxemia Obesity (BMI 30-39.9) On beta miguel at home VY (obstructive sleep apnea) VY on CPAP Pre-diabetes Routine medical exam Shoulder injury Transient alteration of awareness Family History Father Diabetes mellitus Surgical History H/O cardiac radiofrequency ablation History of colonoscopy History of esophagogastroduodenoscopy (EGD) Hx of total knee replacement S/P PICC central line placement Social History Household Members: Significant Other and Family Household Members Other:: Brother Housing: House Are you a primary cattle care worker to a significant other at home: No Do you presently have visiting nurse or other home services: No Alcohol intake: former Year quit: 1998 Patient Tobacco Use Status: Never used Tobacco e-Cigarette/Vaping Use: Never Used Second Hand Smoke Exposure: Yes Use of substances other than those prescribed or required for medical reasons: No Have you been hit, kicked, punched, or otherwise hurt by someone within the past year? 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 Cognitive needs: No Hearing needs: No Vision needs: Yes Meds Allergies Allergy/AdvReac Type Severity Reaction Status Date / Time lisinopril [LISINOPRIL] Allergy Severe TONGUE Verified 07/30/22 09:11 SWELLING, CONFUSION Active Medications: Current Medications Acetaminophen (Acetaminophen 325 Mg Tablet) 650 mg PO Q6H PRN PRN Reason: Pain, Mild (Pain Scale 1-3) Allopurinol (Allopurinol 300 Mg Tablet) 300 mg PO DAILY [facility] Ascorbic Acid (Ascorbic Acid 500 Mg Tablet) 500 mg PO BID [facility] Atorvastatin Calcium (Atorvastatin Calcium 40 Mg Tablet) 40 mg PO BEDTIME [facility] Brimonidine Tartrate (Brimonidine Tartrate 0.2% Oph 5 Ml Bottle) 1 drop EYE-LEFT BID [facility] Celecoxib (Celecoxib 200 Mg Capsule) 200 mg PO BID [facility] Diphenhydramine HCl (Diphenhydramine Hcl 25 Mg Capsule) 25 mg PO BEDTIME PRN PRN Reason: Insomnia Docusate Sodium (Docusate Sodium 100 Mg Capsule) 100 mg PO BID [facility] Dorzolamide/Timolol (Dorzolamide/Timolo 2.23%/0.68% 10 Ml Drbtl) 1 drop EYE-BOTH BEDTIME [facility] Fentanyl (Fentanyl Citrate/Pf 100 Mcg/2 Ml Vial) 25 mcg IVPUSH Q5M PRN; Protocol PRN Reason: Pain, Moderate(Pain Scale 4-6) Ferrous Sulfate (Ferrous Sulfate 324 Mg Tablet.Dr) 324 mg PO DAILY [facility] Furosemide (Furosemide 20 Mg Tablet) 20 mg PO DAILY WAEL; Protocol Gabapentin (Gabapentin 300 Mg Capsule) 300 mg PO BEDTIME [facility] Hydromorphone HCl (Hydromorphone Hcl 0.5 Mg/0.5 Ml Syringe) 0.25 mg IVPUSH Q4H PRN; Protocol PRN Reason: Pain, Severe (Pain Scale 7-10) Lactated Ringer's (Lr) 1,000 mls @ 100 mls/hr IVCONT .Q10H [facility] Vancomycin HCl 1,500 mg/ (Sodium Chloride) 500 mls @ 333.333 mls/hr IV POSTOP ONE Stop: 07/31/22 21:54 Latanoprost (Latanoprost 0.005 % Ophth [place] 2.5 Ml Drops) 1 drop EYE-BOTH BEDTIME [facility] Loperamide HCl (Loperamide Hcl 2 Mg Capsule) 2 mg PO BID PRN PRN Reason: Diarrhea Metoprolol Succinate (Metoprolol Succinate Er 100 Mg Tab.Er.24h) 200 mg PO DAILY [facility]; Protocol Multivitamins/Vitamin C (Multivitamin Tablet) 1 tab PO DAILY [facility] Nifedipine (Nifedipine Er 60 Mg Tab.Er.24) 60 mg PO DAILY [facility] Omeprazole (Omeprazole 20 Mg Capsule.Dr) 20 mg PO DAILY@0630 [facility] Ondansetron HCl (Ondansetron Hcl 4 Mg/2 Ml Vial) 4 mg IVPUSH ONCE PRN PRN Reason: Nausea and Vomiting Oxycodone HCl (Oxycodone Hcl Immed Release 5 Mg Tablet) 5 mg PO Q4H PRN PRN Reason: Pain, Moderate(Pain Scale 4-6) Oxycodone HCl (Oxycodone Hcl Er 10 Mg Tab.Er.12h) 10 mg PO BID [facility] Pharmacy Consult (Consult Rx Vancomycin Dosing) 1 each MISCELLANE DAILY PRN PRN Reason: Consult order Psyllium Hydrophilic Mucilloid (Psyllium Seed 3.4 Gm Powd.Pack) 3.4 gm PO BID [facility] Sodium Chloride (0.9 % Sodium Chloride Flush 3 Ml Syringe) 3 ml IVFLUSH QSHIFT [facility] Home Medications Medication Instructions Recorded Confirmed Last Taken Type dorzolamide 22.3 mg-timolol 6.8 1 drp ophthalmic (eye) BEDTIME 12/07/19 07/30/22 04/02/21 History mg/mL eye drops latanoprost 0.005 % eye drops 1 drp ophthalmic (eye) BEDTIME 12/07/19 07/30/22 03/11/22 History brimonidine 0.2 % eye drops 1 drp ophthalmic-Left BID 02/16/21 07/30/22 03/11/22 History ascorbic acid (vitamin C) 500 mg 500 mg PO BID 04/03/21 07/30/22 03/11/22 History chewable tablet (Vitamin C) diphenhydramine HCl 25 mg capsule 25 mg PO BEDTIME PRN Insomnia 04/03/21 07/30/22 Unknown History (Benadryl) loperamide 2 mg tablet (Imodium 2 mg PO BID PRN Diarrhea 04/03/21 07/30/22 Unknown History A-D) multivitamin 1 tab PO DAILY 04/03/21 07/30/22 03/11/22 History atorvastatin 40 mg tablet 40 mg PO BEDTIME 07/31/22 07/31/22 Unknown History Physical Exam Vital Signs and Narrative: Vital Signs: Last Vital Signs Temp 97.8 F 07/31/22 14:04 Pulse 47 L 07/31/22 14:04 Resp 18 07/31/22 14:04 BP 113/70 07/31/22 14:04 Pulse Ox 98 07/31/22 14:04 O2 Del Method Nasal Cannula 07/31/22 14:04 O2 Flow Rate 2.0 07/31/22 14:04 BMI result Body Mass Index 31.3 Constitutional - Awake and Alert, No apparent distress, pallor Eyes - PERRLA, EOMI Cardiovascular - S1S2, RRR, No edema Respiratory - Normal lung expansion, Normal respiratory effort, No respiratory distress, CTA bilaterally Gastrointestinal - NT / ND; +BS; No rebound or guarding Extremities - no calf tenderness bilaterally, no swelling Skin - Warm/Dry Neurological - Alert & oriented x3 Psychological - Appropriate affect Results Labs 07/31/22 06:22 Imaging Radiologist's Impressions: Impressions Knee X-Ray 07/31/22 10:54 IMPRESSION: Satisfactory appearance of right knee replacement. Assessment and Plan (1) Internal derangement of right knee: Status: Acute Plan 67 year old male with history of GERD, HFpEF, htn, gout, hx TIA, hx alcohol abuse, idiopathic peripheral neuropathy, prediabetes, and obesity admitted to orthopedic surgery for revision of right TKR with consult placed to medicine for medical management. #Revision right TKR -plan per ortho surgery -pain management per ortho surgery #Post-operative bradycardia- asymptomatic -hold bb, ccb. Monitor on telemetry. No intervention needed at this time #HTN- bp soft -Hold meds #HFpEF- euvolemic -resume lasix am #GERD -continue ppi #Idiopathic peripheral neuropathy -continue gabapentin #Obesity -Reocmmend weight loss efforts Thank you for allowing me to participate in this consult. Will continue following Time Spent With Patient Time: Total time managing care of this patient today ____ minutes.
[2022-07-31] MEDS: Acetaminophen 325 MG TABLET 650 MG PO (14:31)
[2022-07-31] MEDS: oxyCODONE HCl Immed Release 5 MG TABLET PO (14:32)
[2022-07-31] MEDS: Lactated Ringers 1,000 ML 100 ML IVCONT (14:33)
[2022-07-31] MEDS: 0.9 % Sodium Chloride Flush 3 ML SYRINGE IVFLUSH (14:33)
[2022-07-31] MEDS: vancomycin HCL 1,500 MG in 0.9 % Sodium Chloride 500 ML 333.33 MG IV (21:40)
[2022-07-31] MEDS: Atorvastatin Calcium 40 MG TABLET PO (21:42)
[2022-07-31] MEDS: Gabapentin 300 MG CAPSULE PO (21:42)
[2022-07-31] MEDS: Ascorbic Acid 500 MG TABLET PO (21:42)
[2022-07-31] MEDS: oxyCODONE HCl ER 10 MG TAB.ER.12H PO (21:42)
[2022-07-31] MEDS: Latanoprost 0.005 % Ophth Sol 2.5 ML DROPS 1 DROP EYE-BOTH (21:42)
[2022-07-31] MEDS: Celecoxib 200 MG CAPSULE PO (21:42)
[2022-07-31] MEDS: Brimonidine Tartrate 0.2% Oph 5 ML BOTTLE 1 DROP EYE-LEFT (21:49)
[2022-07-31] MEDS: Dorzolamide/Timolo 2.23%/0.68% 10 ML DRBTL 1 DROP EYE-BOTH (21:49)
[2022-08-01] MEDS: Lactated Ringers 1,000 ML 100 ML IVCONT ×3 (00:32→19:35)
[2022-08-01 04:00] VITALS: BP 124/63; PULSE 77; RESP 17; TEMP 37.2; O2SAT 96
[2022-08-01] MEDS: oxyCODONE HCl Immed Release 5 MG TABLET PO (05:24)
[2022-08-01] MEDS: Omeprazole 20 MG CAPSULE.DR PO (05:25)
[2022-08-01 07:03] LABS: MANUAL DIFF FLAG NO
[2022-08-01 07:10] LABS: Basophils Percent Auto 0.3 % (0-2); Eosinophils Absolute Auto 0.2 X10*3/uL (0.0-0.4); Eosinophils Percent Auto 2.3 % (0-4); Hematocrit 29.7 % (42.0-52.0); Hemoglobin 9.6 g/dl (14.0-18.0); Imm Gran Abs Auto 0.03 X10*3/uL (0.00-0.03); Imm Gran Pct Auto 0.4 % (0.0-0.4); Lymphocytes Percent Auto 12.4 % (20-40); Mean Corpuscular HGB Conc 32.3 g/dl (31.0-36.0); Mean Corpuscular Hemoglobin 27.6 pg (27.0-33.0); Mean Corpuscular Volume 85.3 fL (80.0-98.0); Mean Platelet Volume 10.9 fL (9.4-12.4); Monocytes Absolute Auto 0.8 X10*3/uL (0.1-1.2); Monocytes Percent Auto 9.9 % (2-11); Neutrophils Absolute Auto 5.8 x10*3/uL (2.0-8.3); Neutrophils Percent Auto 74.7 % (45-73); Platelet Count 162 X10*3/uL (160-400); Red Blood Count 3.48 X10*6/uL (4.60-5.80); Red Cell Distribution Width 17.2 % (11.0-16.0); White Blood Count 7.8 X10*3/uL (4.8-10.8)
[2022-08-01 07:40] VITALS: BP 117/66; PULSE 73; RESP 17; TEMP 36.2; O2SAT 94
[2022-08-01 08:11] VITALS: BP 117/66; PULSE 73; O2SAT 94
--- NOTE | 2022-08-01 08:54 | P.PNOP_ITS ---
Subjective Subjective Date of Service: 08/01/22 Interval history: POD1 s/p right total knee revision. Patient is resting comfortably in bed. No overnight events. Pain is well managed. No additional complaints. Physical Exam Vital Signs: Vital Signs: Last Vital Signs Temp 97.1 F 08/01/22 07:40 Pulse 73 08/01/22 08:11 Resp 17 08/01/22 07:40 BP 117/66 08/01/22 08:11 Pulse Ox 94 08/01/22 08:11 O2 Del Method Room Air 08/01/22 07:40 O2 Flow Rate 2.0 07/31/22 14:04 BMI result Body Mass Index 31.3 Const: General: cooperative, healthy appearing and no acute distress Resp: Effort & Inspection: normal respiratory effort and able to speak in co mplete sentences Cardio: Rate: regular rate Peripheral pulses: Peripheral pulses 2+ throughout GI: Palpation (GI): Soft to palpation Skin: Lesions: no lesions Rashes: no rashes Extrem: Other: Right knee Aquacel c/d/i. Able to dorsi/plantar flex. NVI. Procedures Date of Service Date of Service: 08/01/22 Progress Note: A&P Assessment and plan (1) Status post revision of total replacement of right knee: Status: Acute Plan Continue pain mgmnt Begin Lovenox dvt ppx begin PT for right total knee revision - WBAT Dispo planning-Pending PT eval, pain mgmnt Time Spent With Patient Time: Total time managing care of this patient today ____ minutes. Quality Stroke Does the patient have a stroke diagnosis?: No VTE Prior VTE?: Yes VTE Risk Level:: Medical - moderate - high VTE Device Contraindication: N/A - Device Ordered VTE Drug Contraindication: N/A - Med Ordered
[2022-08-01 09:27] LABS: Vancomycin Random 10.9 mcg/mL (15-20)
[2022-08-01 09:29] LABS: Creatinine Clr Calc Pharmacy 79.6; Estimated Glomerular Filt Rate > 60
--- NOTE | 2022-08-01 09:29 | MHC.CM.PN ---
PATIENT LIVES WITH HIS SIGNIFICANT OTHER AND HIS BROTHER/HCP (ON FILE AND VERIFIED) HE HAS A CANE AND WALKER NO SERVICES IN HOME HE WANTS [facility] FOR HOME P.T. AT [place] REFERRAL PLACED. PATIENT IS HOPING TO RETURN HOME TOMORROW IMM 08/01 IN CHART
--- NOTE | 2022-08-01 10:01 | PHA.PROG ---
Admission Date/Time: July 31, 2022 06:09 Indication: Bone & Joint infection Weight in k.162 kg Adjusted body weight in K.9kg [place] body weight in K.7 kg Obesity Dosing Indication % IBW: 135% Serum Creatinine - Last 168 Hours 08/01/22 09:04 Creatinine 1.03 Estimated CrCl and GFR - Last 168 Hours 08/01/22 09:04 Estim Creat Clear Calc 79.6 Estimated GFR > 60 Vancomycin Loading Dose: n/a Current Vancomycin Dosing Regimen: 1000 mg Q12H Date and Time for next Vancomycin Level to be drawn: 08/02/2022 Pharmacist Comments on Vancomycin Plan: Patient is obese with %IBW > 130%, therefore carefully monitoring is required due to high volume of distribution Patient received vancomycin 1500 mg pre-op dose and post-op dose, will consider these as a loading dose. Since these are higher then a normal maintenance dose, got a random level prior to start maintenance dose. Level 08/01 @ 0900 was 10.9. Will start patient on 1000 mg Q12H, expected AUC 537 with a trough of 16.6. Level will be drawn after 2 maintenance dose to access for safety due to patient weight. Patient was therapeutic one this dose last admission with slightly better renal function Pharmacy will continue to monitor renal function Birgit Horton PharmD Vancomycin dosing will take advantage of [employer] as a clinical decision support tool that uses Bayesian modeling to calculate individual patient's pharmacokinetic parameters and forecast the patient's drug concentration time course with the target goal AUC 24 range of 400 - 600 mg/L/hr.
[2022-08-01] MEDS: Ferrous Sulfate 324 MG TABLET.DR PO (10:11)
[2022-08-01] MEDS: Celecoxib 200 MG CAPSULE PO ×2 (10:11→19:37)
[2022-08-01] MEDS: oxyCODONE HCl ER 10 MG TAB.ER.12H PO ×2 (10:11→19:38)
[2022-08-01] MEDS: Multivitamin TABLET 1 TAB PO (10:12)
[2022-08-01] MEDS: Docusate Sodium 100 MG CAPSULE PO ×2 (10:12→19:38)
[2022-08-01] MEDS: Ascorbic Acid 500 MG TABLET PO ×2 (10:13→19:38)
[2022-08-01] MEDS: allopurinoL 300 MG TABLET PO (10:13)
[2022-08-01] MEDS: Furosemide 20 MG TABLET PO (10:13)
[2022-08-01] MEDS: Brimonidine Tartrate 0.2% Oph 5 ML BOTTLE 1 DROP EYE-LEFT ×2 (10:18→19:43)
[2022-08-01] MEDS: vancomycin HCL 1,000 MG in 0.9 % Sodium Chloride 250 ML 270 MG IV ×2 (10:27→21:40)
[2022-08-01 11:34] LABS: Anion Gap 13 (12-20); Blood Urea Nitrogen 15 mg/dL (9-16); Carbon Dioxide 25 mmol/L (22-29); Chloride 105 mmol/L (96-108); Glucose Fasting 138 mg/dL (60-99); Potassium 4.2 mmol/L (3.3-5.1); Sodium 139 mmol/L (135-145)
[2022-08-01] MEDS: Enoxaparin Sodium 40 MG/0.4 ML SYRINGE SUBCUT (12:14)
[2022-08-01 13:16] VITALS: BP 117/66; PULSE 73; O2SAT 94
[2022-08-01] MEDS: HYDROmorphone HCl 0.5 MG/0.5 ML SYRINGE 0.25 MG IVPUSH (13:18)
[2022-08-01 15:19] VITALS: BP 107/61; PULSE 74; RESP 20; TEMP 36.3; O2SAT 95
--- NOTE | 2022-08-01 18:07 | HO.POSTANES ---
Post Anesthesia Evaluation Post Anesthesia Evaluation Date of Service: 08/01/22 Vital Signs: Vital Signs Temp Pulse Resp BP Pulse Ox O2 Del Method 08/01/22 15:19 97.3 F 74 20 107/61 95 Room Air 08/01/22 13:16 73 117/66 94 08/01/22 08:11 73 117/66 94 08/01/22 07:40 97.1 F 73 17 117/66 94 Room Air Anesthesia: Regional and Spinal Mental Status: Awake Pain Control: Satisfactory Nausea/Vomiting: None Hydration: Adequate Anesthesia-Related Issues: No Anes. Related Issues
[2022-08-01 19:24] VITALS: BP 135/71; PULSE 81; RESP 18; TEMP 36; O2SAT 93
[2022-08-01] MEDS: Gabapentin 300 MG CAPSULE PO (19:37)
[2022-08-01] MEDS: Atorvastatin Calcium 40 MG TABLET PO (19:37)
[2022-08-01] MEDS: Dorzolamide/Timolo 2.23%/0.68% 10 ML DRBTL 1 DROP EYE-BOTH (19:42)
[2022-08-01] MEDS: Latanoprost 0.005 % Ophth Sol 2.5 ML DROPS 1 DROP EYE-BOTH (19:43)
--- NOTE | 2022-08-01 22:55 | MHC.PIE ---
1929. p; pt void urine on floor via accident, post void scan shows 480ml. note; pt adamant against straight cath i; dr herman notified e; 2029; pt able to void 250 ml. post void scan shows [address] herman notified. will cont to monitor
[2022-08-02 01:14] VITALS: BP 129/80; PULSE 79; RESP 18; TEMP 36.2; O2SAT 94
[2022-08-02] MEDS: Omeprazole 20 MG CAPSULE.DR PO (05:56)
[2022-08-02] MEDS: Lactated Ringers 1,000 ML 100 ML IVCONT (05:56)
[2022-08-02] MEDS: oxyCODONE HCl Immed Release 5 MG TABLET PO ×2 (07:14→14:55)
[2022-08-02] MEDS: oxyCODONE HCl ER 10 MG TAB.ER.12H PO (07:14)
[2022-08-02] MEDS: Furosemide 20 MG TABLET PO (07:15)
[2022-08-02] MEDS: allopurinoL 300 MG TABLET PO (07:15)
[2022-08-02] MEDS: Ferrous Sulfate 324 MG TABLET.DR PO (07:15)
[2022-08-02] MEDS: 0.9 % Sodium Chloride Flush 3 ML SYRINGE IVFLUSH (07:15)
[2022-08-02] MEDS: Docusate Sodium 100 MG CAPSULE PO (07:15)
[2022-08-02] MEDS: Ascorbic Acid 500 MG TABLET PO (07:15)
[2022-08-02] MEDS: Brimonidine Tartrate 0.2% Oph 5 ML BOTTLE 1 DROP EYE-LEFT (07:16)
[2022-08-02] MEDS: Multivitamin TABLET 1 TAB PO (07:17)
[2022-08-02 07:18] VITALS: BP 143/70; PULSE 79; RESP 17; TEMP 36.2; O2SAT 93
[2022-08-02] MEDS: Celecoxib 200 MG CAPSULE PO (07:30)
[2022-08-02 08:00] LABS: MANUAL DIFF FLAG NO
[2022-08-02 08:02] LABS: Basophils Percent Auto 0.5 % (0-2); Eosinophils Absolute Auto 0.6 X10*3/uL (0.0-0.4); Eosinophils Percent Auto 9.6 % (0-4); Hematocrit 27.9 % (42.0-52.0); Hemoglobin 9.1 g/dl (14.0-18.0); Imm Gran Abs Auto 0.03 X10*3/uL (0.00-0.03); Imm Gran Pct Auto 0.5 % (0.0-0.4); Lymphocytes Absolute Auto 1.2 X10*3/uL (1.2-4.9); Lymphocytes Percent Auto 17.6 % (20-40); Mean Corpuscular HGB Conc 32.6 g/dl (31.0-36.0); Mean Corpuscular Hemoglobin 27.8 pg (27.0-33.0); Mean Corpuscular Volume 85.3 fL (80.0-98.0); Mean Platelet Volume 10.7 fL (9.4-12.4); Monocytes Absolute Auto 0.7 X10*3/uL (0.1-1.2); Monocytes Percent Auto 10.8 % (2-11); Neutrophils Absolute Auto 4.1 x10*3/uL (2.0-8.3); Platelet Count 142 X10*3/uL (160-400); Red Blood Count 3.27 X10*6/uL (4.60-5.80); White Blood Count 6.7 X10*3/uL (4.8-10.8)
[2022-08-02 08:16] LABS: Vancomycin Random 14.1 mcg/mL (15-20)
[2022-08-02 08:23] LABS: Anion Gap 11 (12-20); Blood Urea Nitrogen 13 mg/dL (9-16); Calcium 9.2 mg/dL (8.4-10.2); Carbon Dioxide 27 mmol/L (22-29); Chloride 105 mmol/L (96-108); Creatinine Clr Calc Pharmacy 94.2; Creatinine Clr Calc Pharmacy 95.3; Estimated Glomerular Filt Rate > 60; Glucose Fasting 121 mg/dL (60-99); Potassium 4.3 mmol/L (3.3-5.1); Sodium 139 mmol/L (135-145)
--- NOTE | 2022-08-02 08:27 | HE.PHANOTE ---
RE: vanco Trough on 08/02 came back14.1; increased dose to 1250mg Q12H with predicted AUC 514mg/L and trough of 14.6. Next level to be drawn 08/03 @1999
[2022-08-02 09:58] VITALS: BP 143/70; PULSE 79; O2SAT 93
[2022-08-02] MEDS: vancomycin HCL 1,250 MG in 0.9 % Sodium Chloride 250 ML 166.67 MG IV (10:24)
--- NOTE | 2022-08-02 12:23 | PM.DS ---
DS: Providers Provider Date of Service: 08/02/22 Date of admission: 07/31/22 06:09 Primary care physician: Conchita Chavis MD Consults: 07/31/22 13:54 Consult to Hospitalist Routine Comment: Consulting Provider: Hospitalist Reason For Exam: Routine medical management DS: Diagnosis Discharge Diagnosis (1) Status post revision of total replacement of right knee: Status: Acute DS: Summary Hospital Course Hospital Course: The patient underwent a successful revision right total knee arthroplasty on 07/31/22, was transferred to PACU and then to the floor to recover. During their stay, their vitals were stable, afebrile at 97.1. Labs were unremarkable, H/H 9.1/27.9. POD 1 he was started on Lovenox for DVT ppx, they also received Physical Therapy services twice a day. Physical therapy should include gait training, ROM to tolerance and quad strength. He is WBAT. Prior to discharge, his dressing was changed, incision clean dry and intact, new Aquacel dressing applied. The Aquacel dressing shoulder remain intact and dry at all times. Any concerns with the dressing, please contact orthopedic office. No showering. The plan is to be discharged home with [facility] Time Spent with Patient Time attestation: Total time managing care of this patient today ____ minutes. Discharge coordination time: Less than 30 minutes Quality: Safe Use of Opioids Does Pt have an Active Cancer Diagnosis on the Problem List?: No Quality: Stroke Does the patient have a stroke diagnosis?: No Physical Exam Vital Signs: Vital Signs: Last Vital Signs Temp 97.1 F 08/02/22 07:18 Pulse 79 08/02/22 09:58 Resp 17 08/02/22 07:18 BP 143/70 H 08/02/22 09:58 Pulse Ox 93 08/02/22 09:58 O2 Del Method Room Air 08/02/22 11:00 O2 Flow Rate 2.0 07/31/22 14:04 BMI result Body Mass Index 31.3 Const: General: cooperative, healthy appearing and no acute distress Resp: Effort & Inspection: normal respiratory effort and able to speak in complete sentences Cardio: Rate: regular rate Peripheral pulses: Peripheral pulses 2+ throughout GI: Palpation (GI): Soft to palpation Skin: Lesions: no lesions Rashes: no rashes Extrem: Other: Right knee incision c/d/i. Able to dorsi/plantar flex. NVI. DS: Data Data Completed and Pending Completed studies during hospitalization [Text1]: Procedures Insertion of Infusion Device into Superior Vena Cava, Percutaneous Approach (05/07/22) Insertion of Spacer into Right Knee Joint, Open Approach (05/07/22) Replacement of Right Knee Joint with Synthetic Substitute, Uncemented, Open Approach (04/03/21) Transfusion of Nonautologous Red Blood Cells into Peripheral Vein, Percutaneous Approach (05/07/22) Ultrasonography of Superior Vena Cava, Guidance (05/07/22) Labs on day of discharge: Laboratory Results - last 24 hr 08/02/22 08/02/22 08/02/22 07:56 07:56 07:56 WBC 6.7 RBC 3.27 L Hgb 9.1 L Hct 27.9 L MCV 85.3 MCH 27.8 MCHC 32.6 RDW 17.0 H Plt Count 142 L MPV 10.7 Immature Gran % (Auto) 0.5 H Neut % (Auto) 61.0 Lymph % (Auto) 17.6 L Caldwell % (Auto) 10.8 Eos % (Auto) 9.6 H Baso % (Auto) 0.5 Lymph # (Auto) 1.2 Caldwell # (Auto) 0.7 Eos # (Auto) 0.6 H Baso # (Auto) 0.0 Abs Immat Gran (auto) 0.03 Absolute Neuts (auto) 4.1 Absolute Nucleated RBC 0.000 Nucleated RBC % (auto) 0.0 Sodium 139 Potassium 4.3 Chloride 105 Carbon Dioxide 27 Anion Gap 11 L BUN 13 Creatinine 0.86 Estim Creat Clear Calc 95.3 Estimated GFR > 60 Fasting Glucose 121 H Calcium 9.2 Random Vancomycin 14.1 L 08/02/22 07:56 WBC RBC Hgb Hct MCV MCH MCHC RDW Plt Count MPV Immature Gran % (Auto) Neut % (Auto) Lymph % (Auto) Caldwell % (Auto) Eos % (Auto) Baso % (Auto) Lymph # (Auto) Caldwell # (Auto) Eos # (Auto) Baso # (Auto) Abs Immat Gran (auto) Absolute Neuts (auto) Absolute Nucleated RBC Nucleated RBC % (auto) Sodium Potassium Chloride Carbon Dioxide Anion Gap BUN Creatinine 0.87 Estim Creat Clear Calc 94.2 Estimated GFR > 60 Fasting Glucose Calcium Random Vancomycin Discharge Plan Discharge Anticipated Discharge Date/Time: 08/02/22 08:14 Patient Disposition: Home Health Service Discharge Diagnosis: RT TKA Referrals: Marion BUCKLEY [Outside] - 1 Week Mariah Love PA-C [Physician [place]] - 2 Weeks (08/15/22 1:30 [facility] Mariah Love PA-C[place] Discharge Medications: New celecoxib 200 mg Capsule 200 mg PO BID 30 Days Qty: 60 0RF acetaminophen 325 mg Tablet 650 mg PO Q6H PRN (Reason: Pain, Mild (Pain Scale 1-3)) 30 Days Qty: 240 0RF docusate sodium 100 mg Capsule 100 mg PO BID 14 Days Qty: 28 0RF oxycodone 5 mg Tablet 5 mg PO Q4H PRN (Reason: Pain, Moderate(Pain Scale 4-6)) 7 Days Qty: 42 0RF Rx Instructions: Partial Fill upon patient request. enoxaparin 40 mg/0.4 mL Syringe 40 mg subcut Q24H 42 Days Qty: 16.8 0RF Continued (DME) ancelmo vera See Rx Instructions .Route .MEDSUPPLY Qty: 2 0RF Rx Instructions: As directed allopurinol 300 mg tablet 300 mg PO DAILY Qty: 90 1RF metoprolol succinate 200 mg tablet extended release 24 hr 200 mg PO DAILY Qty: 90 3RF furosemide [Lasix] 20 mg tablet 20 mg PO DAILY Qty: 90 3RF nifedipine 60 mg tablet extended release 60 mg PO DAILY Qty: 90 3RF pantoprazole 40 mg tablet,delayed release (DR/EC) 40 mg PO DAILY 30 Days Qty: 30 6RF gabapentin 300 mg capsule 300 mg PO BEDTIME 30 Days Qty: 90 0RF ferrous sulfate 325 mg (65 mg iron) tablet 325 mg PO DAILY Qty: 90 0RF latanoprost 0.005 % drops 1 drp ophthalmic (eye) BEDTIME Patient Comments: both eyes dorzolamide-timolol 22.3-6.8 mg/mL drops 1 drp ophthalmic (eye) BEDTIME Patient Comments: both eyes multivitamin Tablet 1 tab PO DAILY loperamide [Imodium A-D] 2 mg Tablet 2 mg PO BID PRN (Reason: Diarrhea) diphenhydramine HCl [Benadryl] 25 mg Capsule 25 mg PO BEDTIME PRN (Reason: Insomnia) ascorbic acid (vitamin C) [Vitamin C] 500 mg Tablet,Chewable 500 mg PO BID acetaminophen 325 mg Tablet 650 mg PO Q6H PRN (Reason: Pain, Mild (Pain Scale 1-3)) 30 Days Qty: 240 0RF atorvastatin 40 mg tablet 40 mg PO BEDTIME brimonidine 0.2 % drops 1 drp ophthalmic-Left BID Metamucil 3.4 gram/5.4 gram powder 1 tbsp PO BID Qty: 660 3RF Rx Instructions: mix into at least 8 oz of water or juice before administering Discharge Orders: Discharge Order (Routine); Ordered 08/02/22 Ordered By: Mariah Love Diet: Regular diet Activity on Discharge: Use cane or walker Stand Alone Forms: Patient Portal Discharge page Care Plan Goals: Restore function of joint Health Concerns: none Plan of Treatment: Physical Therapy Pain management DVT prophylaxis Assessment: Physical Therapy for Total knee arthroplasty: WBAT, gait training, ROM 0-12, quad strength Limit stair climbing No showering, no tub bath-keep dressing clean, dry and intact No driving x6 weeks Continue Aspirin twice a day x 6 weeks Follow up with [facility] [place] [facility] [place]: --you will also have your first out patient PT eval on the day of your post op appt-so please plan on being in the office that day for an extended period of time.
--- NOTE | 2022-08-02 12:25 | P.F2F_ITS ---
Service Date Service Date: 08/02/22 Anticipate start of therapy 08/07/22 due to holiday Encounter Date of encounter: 08/02/22 Reasons for Services Signs and symptoms assessed: Right knee weakness and pain with ambulation. Poor balance. Reason for physical therapy: home safety and mobility, therapeutic exercises, restore joint function, gait/transfer training, ADL training and energy conservation Reason for occupational therapy: home safety and mobility, therapeutic exercises, restore joint function, gait/transfer training, ADL training and energy conservation Homebound: Leaving the home is medically contraindicated at this time without the asist of a device and/or another person due th the listed conditions above and below. Reason homebound: unsteady gait / fall risk, pain with ambulation, poor balance / fall risk and unable to drive Homebound supporting statement: Pt. is considered home bound due to recent surgery. Unable to drive, poor balance, poor gait mechanics. Certification: Based on the above findings, I certify that this patient is confined to the home and needs intermittent nursing home care, physical therapy and/or speech therapy, or continues to need occupational therapy. The patient is under my care, and I have initiated the establishment of the plan of care. The patient will be followed by a physician who will periodically review the plan of care. Time Spent With Patient Time: Total time managing care of this patient today ____ minutes.
[2022-08-02] MEDS: Enoxaparin Sodium 40 MG/0.4 ML SYRINGE SUBCUT (12:35)
--- NOTE | 2022-08-02 13:16 | MHC.CM.PN ---
PATIENT AWARE THAT [facility] WILL BE OUT TOMORROW (08/03) FOR HOME P.T. PATIENT WILL ADMINISTER HIS LOVENOX IN FRONT OF THERAPIST. IF RN SKILLS ARE NEEDED, THERAPIST CAN ORDER. [facility] AWARE OF PLAN WELL
[2022-08-02 15:18] VITALS: BP 143/70; PULSE 79; O2SAT 93
--- NOTE | 2022-08-02 15:35 | PC.NURSE ---
MD Chavarria at bedside this AM spoke with MD regarding patient urinary retention over night, MD aware of pts last bladder scan. MD Encouraged ambulation and getting out of bed to void, dose not feel bladder scans are necessary at this point. Pt voiding throughout the day denies abd pain, see flow sheet I&O for number of voids, last void 300ml at 1458.
[2022-08-02 15:51] VITALS: BP 130/74; PULSE 90; RESP 17; TEMP 36.6; O2SAT 95
--- NOTE | 2022-08-06 10:22 | W.PM.OPN ---
Operative Note Operative Note Date of Service: 07/31/22 Narrative: Date of Service: 07/31/22 Pre-op diagnosis: Right knee prosthetic infection Post-op diagnosis: same Procedure: Revision right knee replacement Implants: Anum Triathlon TS #4 femur with 100 mm stem and [address] augment, 5 ml PM augment and 5 mm distal augments bilateral with #5 stem and 5 mm medial and lateral augment with 32 a patella and 19 mm TS spacer Surgeon: Julian Chavarria MD Anesthesia: regional and spinal Was an Respiratory Care Program Director used for this Procedure?: Yes Respiratory Care Program Director: Dianna Schulz Estimated blood loss (mL): 200 Tourniquet time (min): 81 IV fluids (mL): 1,200 Pathology: none sent Condition: stable Disposition: PACU Procedure in detail: The patient was brought to the operating room and prepped and draped in standard sterile fashion. A time-out was called to identify proper site proper procedure proper surgeon and IV antibiotics were administered. 1 g of IV tranexamic acid was administered. I began by making a midline incision to the retinaculum and performed a medial parapatellar arthrotomy. The patella was translated laterally and the knee was flexed up. I removed copious amounts of healthy appearing fibrous tissue from the undersurface of the patellar tendon and was able to slowly access temporary spacer. The femoral component was removed removed with a combination of a rongeur and osteotome. There was mild bone loss in the notch and over the lateral distal femur. There was healthy-appearing soft tissues and bone in the femoral compartment. I then turned to the tibia where I similarly removed the antibiotic spacer with a combination of a rongeur it does 2 toe. There was no uncontained defect at. There was mild symmetric bone loss to the level of the fibular head. Again the tissues appeared healthy. I removed all excess necrotic and fibrous tissue and irrigated after using it curette and a right sure to restore a healthy bleeding bony bed in the femur and the tibia and the patella. Once I was satisfied with this I turned my attention to the femur using anterior referencing guide and the medial epicondyles I made my anterior posterior and chamfer cuts and sized a #4 Femur. My box cut was used and I trialed with a 10 mm posterolateral augment and a 5 mm posteromedial augment and 5 mm distal augments. I was satisfied with the fit and the catholic of the joint line. I removed this trial and turned my attention to the tibia. Using a tibial medullary guide I made a tibial cut estimating 5 mm symmetric augments. I protected the soft tissues at all times and trialed a #5 tibia. With the femur and the tibia and place I took the knee through range of motion. Was satisfied with the stability and balance. The joint line was restored. Brought in a C-arm to take a.m. AP and lateral projection of the construct to confirm joint line and hardware position. I was satisfied with this. I then removed all instrumentation and irrigated copiously. Of note I did prepare the patella and using a 30 to a patellar button and trial. After copious irrigation to bags of gentamicin cement was mixed on the back table and the tibia was cemented in place. Once that tibial cement was dry I turned my attention to the femur and the patella both of which were cemented in place wound while applying axial compression. Again once the cement was dry I removed all excess cement and then trialed with a for right of spacers. I was most satisfied with the 19 mm tibial polyethylene. My final polyethylene component was placed. The tourniquet was let down. There was no brisk bleeding. A 3 minutes iodine soak with local TXA was performed. The knee was then closed with a running Quill suture, a 3 0 Vicryl and kunal on the skin. Patient was then placed in sterile dressing and brought to recovery room in stable condition there were no known complications.
== END 2022-08-02 18:26 | disposition home health service (06) | DRG 467 ==
LOC: HO.SSS 06:09 → HO.SSSA 06:28 → HO.S3 12:00
PROVIDERS: Nurse Practitioner; Physician Assistant; Admitting Provider Physician Assistant; PCP Internal Medicine; Visit Provider Orthopaedic Surgery
PROC: 0SPC0JZ Removal of Synthetic Substitute from Right Knee Joint, Open Approach (ICD-10-PCS; CPT 27487; principal; 2022-07-31 07:30)
DX: T84.53XA Infection and inflammatory reaction due to internal right knee prosthesis, initial encounter (principal); I50.32 Chronic diastolic (congestive) heart failure; F10.21 Alcohol dependence, in remission; R00.1 Bradycardia, unspecified; G47.33 Obstructive sleep apnea (adult) (pediatric); G89.18 Other acute postprocedural pain; G60.9 Hereditary and idiopathic neuropathy, unspecified; I11.0 Hypertensive heart disease with heart failure; K21.9 Gastro-esophageal reflux disease without esophagitis; E66.9 Obesity, unspecified; Z68.31 Body mass index [BMI] 31.0-31.9, adult; Z79.899 Other long term (current) drug therapy
CPT/HCPCS: 36415; 73560; 80048; 80202; 82565; 85014; 85018; 85025; 86850; 86900; 86901; 87640; 87641; 97110; 97116; 97162; 97530; C1713; C1776; J0690; J1170; J1650; J2250; J3010; J3370; J3371

== ENCOUNTER 2022-08-05 21:00 | Emergency (ER) | payer MEDICARE, BC, SELFPAY ==
--- NOTE | ~2022-08-05 | US_ITS ---
EXAMINATION: US VENOUS WITH DOPPLER LOWER EXTREMITY, RIGHT CLINICAL INFORMATION: Swelling. History of recent knee surgery. COMPARISON: Previous ultrasound July 2021. TECHNIQUE: Ultrasound of the deep veins is performed from the hip to the calf with compression sonography and color and pulse Doppler assessment. Spectral analysis with color-flow imaging is performed. FINDINGS: There is an occlusive thrombus seen in the right superficial femoral, popliteal and posterior tibial veins. The right common femoral and profunda femoral veins are patent. Peroneal veins are not well visualized. Contralateral left common femoral vein is patent. US/US venous duplex LE RT IMPRESSION: DVT in the right superficial femoral, popliteal and posterior tibial veins. Findings were communicated to Machelle Otto by telephone on 08/05/2022 3434 hours
[2022-08-05 21:02] VITALS: BP 125/65; PULSE 72; RESP 18; TEMP 36.8; O2SAT 97; BMI 31.7
--- NOTE | 2022-08-05 21:16 | ED.GENADULT ---
HPI - General Adult General Chief complaint: General Medical Stated complaint: right knee dsg needs changing Time Seen by Provider: 08/05/22 21:11 Source: patient, RN notes reviewed and old records reviewed Mode of arrival: ambulatory Limitations: no limitations History of Present Illness HPI narrative: Patient is a 67-year-old male with history of CHF, VY, CVA, HTN, and revision of right total knee by Dr. Chavarria on 07/31/22 presenting to the ED with drainage from his dressing as well as new right leg swelling today. Patient was instructed to keep dressing in place until follow up ortho appointment on 08/15/22. He reports that he started physical therapy on Friday. He states at that time the physical therapist told him to discontinue his ASA, as he is also on Lovenox, so he has not had any ASA since Friday. He denies any showering or bathing. He denies any calf pain or tenderness. He denies any fevers. Denies any chest pain or shortness of breath. He denies any numbness or tingling to his leg or foot. He states that his pain has been well managed with his prescribed oxycodone and Tylenol. MD complaint: right leg swelling Onset (ago): hour(s) Location: lower extremity Associated symptoms: denies other symptoms Related Data Home Medications Medication Instructions Recorded Confirmed dorzolamide 22.3 mg-timolol 6.8 1 drp ophthalmic (eye) BEDTIME 12/07/19 07/30/22 mg/mL eye drops latanoprost 0.005 % eye drops 1 drp ophthalmic (eye) BEDTIME 12/07/19 07/30/22 brimonidine 0.2 % eye drops 1 drp ophthalmic-Left BID 02/16/21 07/30/22 ascorbic acid (vitamin C) 500 mg 500 mg PO BID 04/03/21 07/30/22 chewable tablet (Vitamin C) diphenhydramine HCl 25 mg capsule 25 mg PO BEDTIME PRN Insomnia 04/03/21 07/30/22 (Benadryl) loperamide 2 mg tablet (Imodium 2 mg PO BID PRN Diarrhea 04/03/21 07/30/22 A-D) multivitamin 1 tab PO DAILY 04/03/21 07/30/22 atorvastatin 40 mg tablet 40 mg PO BEDTIME 07/31/22 07/31/22 Previous Rx's Medication Instructions Recorded ancelmo vera #2 ea 09/11/21 allopurinol 300 mg tablet 300 mg PO DAILY #90 tabs 12/26/21 metoprolol succinate 200 mg 200 mg PO DAILY #90 tabs 01/17/22 tablet,extended release 24 hr furosemide 20 mg tablet (Lasix) 20 mg PO DAILY #90 tabs 04/15/22 psyllium husk 3.4 gram/5.4 gram 1 tbsp PO BID #660 grams 04/15/22 oral powder (Metamucil) nifedipine 60 mg tablet,extended 60 mg PO DAILY #90 tabs 05/06/22 release acetaminophen 325 mg tablet 650 mg PO Q6H PRN Pain, Mild (Pain 05/08/22 Scale 1-3) 30 days #240 tabs pantoprazole 40 mg tablet,delayed 40 mg PO DAILY 30 days #30 tabs 05/08/22 release gabapentin 300 mg capsule 300 mg PO BEDTIME 30 days #90 caps 07/08/22 ferrous sulfate 325 mg (65 mg 325 mg PO DAILY #90 tabs 07/11/22 iron) tablet acetaminophen 325 mg tablet 650 mg PO Q6H PRN Pain, Mild (Pain 08/02/22 Scale 1-3) 30 days #240 tabs celecoxib 200 mg capsule 200 mg PO BID 30 days #60 caps 08/02/22 docusate sodium 100 mg capsule 100 mg PO BID 14 days #28 caps 08/02/22 enoxaparin 40 mg/0.4 mL 40 mg (0.4 mL) subcut Q24H 42 days 08/02/22 subcutaneous syringe #16.8 mL oxycodone 5 mg tablet 5 mg PO Q4H PRN Pain, 08/02/22 Moderate(Pain Scale 4-6) 7 days #42 tabs Allergies Allergy/AdvReac Type Severity Reaction Status Date / Time lisinopril [LISINOPRIL] Allergy Severe TONGUE Verified 07/30/22 09:11 SWELLING, CONFUSION Review of Systems Review of Systems: As per HPI. Yes all other systems are reviewed and are negative Constitutional: Constitutional: Denies chills and Denies fever(s) Eyes: Eyes: Reports no additional eye complaints ENT: Reports system reviewed and no additional complaints, except as documented Cardiovascular: Cardiovascular: Reports no additional cardiovascular complaints Respiratory: Respiratory: Reports no additional respiratory complaints Gastrointestinal: Gastrointestinal: Reports no additional gastrointestinal complaints Genitourinary: Genitourinary: Reports no additional male genitourinary complaints Musculoskeletal: Musculoskeletal: Reports as per HPI, Denies numbness and Denies tingling Integumentary/Breasts: Comments: serosanguinous drainage from dressing on right knee Neurologic: Reports system reviewed and no additional complaints, except as documented, Denies numbness and Denies tingling Psychiatric: Psychiatric: Reports no additional psychiatric complaints Endocrine: Endocrine: Reports no additional endocrine complaints Hematologic/Lymphatic: Hematologic/Lymphatic: Reports no additional hematologic/lymphatic complaints Allergic/Immunologic: Allergic/Immunologic: Reports no additional allergic/immunologic complaints [facility] Past Medical History Medical History Arthritis Ascending aorta dilation Back pain C. difficile diarrhea Chronic diarrhea Chronic heart failure with preserved ejection fraction (HFpEF) Chronic right heart failure Diarrhea Environmental allergies Essential hypertension GERD (gastroesophageal reflux disease) Gout Hiatal hernia History of alcoholism History of esophageal varices History of GI bleed History of TIA (transient ischemic attack) History of Axaya-Pwlwdquxr-Pbnxg (WPW) syndrome HTN (hypertension) Idiopathic peripheral neuropathy Lumbar spondylosis Morbid obesity Multiple lacunar infarcts Nocturnal hypoxemia Obesity (BMI 30-39.9) On beta miguel at home VY (obstructive sleep apnea) VY on CPAP Pre-diabetes Routine medical exam Shoulder injury Transient alteration of awareness Surgical History H/O cardiac radiofrequency ablation History of colonoscopy History of esophagogastroduodenoscopy (EGD) Hx of total knee replacement S/P PICC central line placement Family History Family History Father Diabetes mellitus Social History Social History Household Members: Significant Other and Family Household Members Other:: BROTHER Housing: House Are you a primary healthcare applications analyst to a significant other at home: No Do you presently have visiting nurse or other home services: No Alcohol intake: former Year quit: 1998 Patient Tobacco Use Status: Never used Tobacco Smoked in Last 30 Days: No e-Cigarette/Vaping Use: Never Used Second Hand Smoke Exposure: Yes Use of substances other than those prescribed or required for medical reasons: No Advance Directives: Yes Advance Directives on File: Yes Advance Directives Date on File: 05/03/20 service: No Current occupational status: retired 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 Blood pressure normal. Heart rate normal. Respiratory rate normal. Temperature normal. Oxygen saturation normal. Const General: cooperative, healthy appearing and no acute distress Orientation/consciousness: oriented to person, oriented to place, oriented to time and patient oriented x3 Limitations: no limitations HENMT Head: Yes normocephalic and Yes atraumatic Ears: external ears normal General nose exam: Normal external nose present Face and sinus: Yes face symmetric Mouth: oropharynx normal and moist mucous membranes Throat: Yes uvula midline Eyes Pupils: Equal, round and reactive pupils present Neck Neck: Yes normal visual inspection and Yes supple Resp Effort & Inspection: normal respiratory effort and able to speak in complete sentences Auscultation: clear to auscultation bilaterally Cardio Rate: regular rate Rhythm: regular rhythm Heart sounds: S1 normal heart sound present and S2 normal heart sound present GI Palpation (GI): Soft to palpation and nontender Auscultation: normoactive bowel sounds General: Yes no CVA tenderness Back/Spine/Pelvis Back: no CVA tenderness Skin General skin exam: elasticity normal and turgor normal Neuro General: oriented to person, oriented to place, oriented to time, patient oriented x3, moves all extremities and no focal motor deficits Cranial nerves: Yes Equal, round and reactive pupils present Cognition (Neuro): normal cognition Extrem Other: General: Yes no calf tenderness Right upper extremity: normal to inspection and full ROM Left upper extremity: normal to inspection and full ROM Right lower extremity: normal capillary refill, edema Details: pitting and 3+, knee Details: other (serosanguinous drainage noted from Aquacell dressing), lower leg Details: non-pitting edema; no tenderness and no unusual warmth and foot Details: vascular exam Details: dorsalis pedis pulse present Left lower extremity: normal to inspection, full ROM and normal capillary refill Psych Mental Status: mental status grossly normal Affect: normal affect Thought process: Normal thought process present Course Reevaluation(s) Reevaluation #1: Received call from radiologistKARIN positive for DVT. Labs relatively unchanged from discharge from hospital. Dr. Chavarria notified, states patient will need therapeutic dose of Lovenox. He advised to remove Aquacell dressing, apply a dry, sterile dressing and Jayme wrap. Patient can follow up in the ortho office tomorrow, Susan the nurse navigator will contact patient in the morning. Aquacell removed and DSD with Jayme wrap applied. Discussed case with Dr. Brandt who advised to given therapeutic dose of Lovenox here and have patient follow up with ortho in the morning for further treatment. Patient specifically instructed to notify Dr. Chavarria that Time: 22:39 Medications Administered Discontinued Medications Generic Name Dose Route Start Last Admin Trade Name Freq PRN Reason Stop Dose Admin Acetaminophen 650 mg 08/05/22 21:42 08/05/22 21:55 Acetaminophen 325 Mg Tablet PO 08/05/22 21:43 650 mg ONCE ONE Administration Enoxaparin Sodium 150 mg 08/05/22 23:27 08/05/22 23:49 Enoxaparin Sodium 150 Mg/Ml Syringe 1.5 mg/kg (150 mg) 08/05/22 23:28 Not Given SUBCUT ONCE ONE Enoxaparin Sodium 150 mg 08/05/22 23:45 08/05/22 23:49 Enoxaparin Sodium 80 Mg/0.8 Ml Syringe 1.5 mg/kg (150 mg) 08/05/22 23:46 150 mg SUBCUT Administration ONCE ONE Medical Decision Making Medical Decision Making [facility] Narrative: Patient is a 67-year-old male with history of CHF, VY, CVA, HTN, and revision of right total knee by Dr. Chavarria on 07/31/22 presenting to the ED with drainage from his dressing as well as new right leg swelling today. On exam patient is awake, A+Ox3, mild pallor, VS WNL, afebrile, 3+ pitting edema to right ankle and foot, edema to right upper and lower leg, scant amount of serosanguinous drainage from Aquacell dressing, 2+ DP pulse right foot. Concern for DVT given new onset of swelling today per patient. Less likely cellulitis. Unlikely osteomyelitis. Will obtain basic labs and ultrasound. [place] text to Dr. Chavarria who advised to change dressing. Differential Diagnosis Differential Diagnoses: The differential diagnosis associated with the presentation includes As above. Admission/Observation Consideration of admission/observation: Escalation of care including admission/observation considered Consult Healthcare Provider Management of the patient was discussed with: Biblical Studies Professor (Dr. Chavarria) Lab Data MDM Lab Attestation statement: I reviewed the patient's lab results. 08/05/22 21:32 08/05/22 21:33 Labs: Lab Results 08/05/22 08/05/22 08/05/22 Range/Units 21:32 21:32 21:33 WBC 5.8 (4.8-10.8) X10*3/uL RBC 3.11 L (4.60-5.80) X10*6/uL Hgb 8.8 L (14.0-18.0) g/dl Hct 27.0 L (42.0-52.0) % MCV 86.8 (80.0-98.0) fL MCH 28.3 (27.0-33.0) pg MCHC 32.6 (31.0-36.0) g/dl RDW 16.8 H (11.0-16.0) % Plt Count 254 D (160-400) X10*3/uL MPV 10.1 (9.4-12.4) fL Immature Gran % (Auto) 0.2 (0.0-0.4) % Neut % (Auto) 58.7 (45-73) % Lymph % (Auto) 21.2 (20-40) % Douglas % (Auto) 8.3 (2-11) % Eos % (Auto) 11.1 H (0-4) % Baso % (Auto) 0.5 (0-2) % Lymph # (Auto) 1.2 (1.2-4.9) X10*3/uL Douglas # (Auto) 0.5 (0.1-1.2) X10*3/uL Eos # (Auto) 0.6 H (0.0-0.4) X10*3/uL Baso # (Auto) 0.0 (0.0-0.2) X10*3/uL Abs Immat Gran (auto) 0.01 (0.00-0.03) X10*3/uL Absolute Neuts (auto) 3.4 (2.0-8.3) x10*3/uL Absolute Nucleated RBC 0.000 (0.0-0.012) X10*3/uL Nucleated RBC % (auto) 0.0 (0.0-0.2) /100WBC Sodium 139 (135-145) mmol/L Potassium 4.6 (3.3-5.1) mmol/L Chloride 104 (96-108) mmol/L Carbon Dioxide 28 (22-29) mmol/L Anion Gap 12 (12-20) BUN 15 (9-16) mg/dL Creatinine 0.91 (0.5-1.4) mg/dL Estim Creat Clear Calc 90.7 Estimated GFR > 60 Random Glucose 128 H (60-115) mg/dL Lactic Acid 1.3 (0.5-2.0) mmol/L Calcium 9.1 (8.4-10.2) mg/dL Total Bilirubin 0.9 (0.0-1.0) mg/dL AST 23 (5-37) U/L ALT 12 (0-40) U/L Alkaline Phosphatase 73 (39-117) U/L Total Protein 6.1 L (6.5-8.0) g/dL Albumin 3.3 L (3.5-5.0) g/dL Independent Interpretation I performed an independent interpretation of an: Ultrasound Interpretation: I independently reviewed the ultrasound and agree with the radiologist's interpretation. Radiology Impression Discussion of test interpretation with radiology: I have reviewed the radiologist's reading. Radiologist Impression: FINDINGS: There is an occlusive thrombus seen in the right superficial femoral, popliteal and posterior tibial veins. The right common femoral and profunda femoral veins are patent. Peroneal veins are not well visualized. Contralateral left common femoral vein is patent. US/US venous duplex LE RT IMPRESSION: DVT in the right superficial femoral, popliteal and posterior tibial veins. ? Findings were communicated to Machelle Otto by telephone on 08/05/2022 2235 hours External Record Review External record reviewed: Inpatient record, Office record and Outpatient record Prescription Management I considered prescription management with: Pain Medication Chronic Conditions Patient?s care impacted by: Hypertension and Other (CHF) Discharge Plan Discharge Clinical Impression: Right leg DVT Qualifiers: Affected thrombotic vein of extremity: popliteal Chronicity: acute Qualified Code(s): I82.431 - Acute embolism and thrombosis of right popliteal vein Patient Disposition: Home, Self-Care Instructions: Deep Vein Thrombosis (ED) Additional Instructions: You were evaluated in the emergency department for drainage from your surgical incision and swelling to your right leg following a right total knee revision. Your ultrasound showed that your have a DVT, also known as a blood clot, in your right leg. You were given a one time therapeutic dose of Lovenox in the ED tonight. Please notify Dr. Chavarria's office that you were not prescribed additional Lovenox. Susan, the nurse navigator from Dr. Chavarria's office will contact you tomorrow morning. If you have continued drainage from your incision, apply more dressings as instructed, do not remove the dressing applied in the ED. Return to the emergency department if you develop chest pain, shortness of breath, fever 100.4F or greater, uncontrolled drainage from your incision, or other concerning symptoms. Prescriptions: No Action (DME) ancelmo vera See Rx Instructions .Route .MEDSUPPLY Qty: 2 0RF Rx Instructions: As directed allopurinol 300 mg tablet 300 mg PO DAILY Qty: 90 1RF metoprolol succinate 200 mg tablet extended release 24 hr 200 mg PO DAILY Qty: 90 3RF furosemide [Lasix] 20 mg tablet 20 mg PO DAILY Qty: 90 3RF nifedipine 60 mg tablet extended release 60 mg PO DAILY Qty: 90 3RF pantoprazole 40 mg tablet,delayed release (DR/EC) 40 mg PO DAILY 30 Days Qty: 30 6RF gabapentin 300 mg capsule 300 mg PO BEDTIME 30 Days Qty: 90 0RF ferrous sulfate 325 mg (65 mg iron) tablet 325 mg PO DAILY Qty: 90 0RF latanoprost 0.005 % drops 1 drp ophthalmic (eye) BEDTIME Patient Comments: both eyes dorzolamide-timolol 22.3-6.8 mg/mL drops 1 drp ophthalmic (eye) BEDTIME Patient Comments: both eyes multivitamin Tablet 1 tab PO DAILY loperamide [Imodium A-D] 2 mg Tablet 2 mg PO BID PRN (Reason: Diarrhea) diphenhydramine HCl [Benadryl] 25 mg Capsule 25 mg PO BEDTIME PRN (Reason: Insomnia) ascorbic acid (vitamin C) [Vitamin C] 500 mg Tablet,Chewable 500 mg PO BID acetaminophen 325 mg Tablet 650 mg PO Q6H PRN (Reason: Pain, Mild (Pain Scale 1-3)) 30 Days Qty: 240 0RF atorvastatin 40 mg tablet 40 mg PO BEDTIME celecoxib 200 mg Capsule 200 mg PO BID 30 Days Qty: 60 0RF acetaminophen 325 mg Tablet 650 mg PO Q6H PRN (Reason: Pain, Mild (Pain Scale 1-3)) 30 Days Qty: 240 0RF docusate sodium 100 mg Capsule 100 mg PO BID 14 Days Qty: 28 0RF oxycodone 5 mg Tablet 5 mg PO Q4H PRN (Reason: Pain, Moderate(Pain Scale 4-6)) 7 Days Qty: 42 0RF Rx Instructions: Partial Fill upon patient request. enoxaparin 40 mg/0.4 mL Syringe 40 mg subcut Q24H 42 Days Qty: 16.8 0RF brimonidine 0.2 % drops 1 drp ophthalmic-Left BID Metamucil 3.4 gram/5.4 gram powder 1 tbsp PO BID Qty: 660 3RF Rx Instructions: mix into at least 8 oz of water or juice before administering Referrals: Julian Chavarria MD [Physician] - Interventions: ED Discharge Assessment Last Done: 08/06/22 00:14 Discharge Date/Time: 08/06/22 00:14
[2022-08-05 21:36] LABS: MANUAL DIFF FLAG NO
[2022-08-05 21:38] LABS: Basophils Percent Auto 0.5 % (0-2); Eosinophils Absolute Auto 0.6 X10*3/uL (0.0-0.4); Eosinophils Percent Auto 11.1 % (0-4); Hemoglobin 8.8 g/dl (14.0-18.0); Imm Gran Abs Auto 0.01 X10*3/uL (0.00-0.03); Imm Gran Pct Auto 0.2 % (0.0-0.4); Lymphocytes Absolute Auto 1.2 X10*3/uL (1.2-4.9); Lymphocytes Percent Auto 21.2 % (20-40); Mean Corpuscular HGB Conc 32.6 g/dl (31.0-36.0); Mean Corpuscular Hemoglobin 28.3 pg (27.0-33.0); Mean Corpuscular Volume 86.8 fL (80.0-98.0); Mean Platelet Volume 10.1 fL (9.4-12.4); Monocytes Absolute Auto 0.5 X10*3/uL (0.1-1.2); Monocytes Percent Auto 8.3 % (2-11); Neutrophils Absolute Auto 3.4 x10*3/uL (2.0-8.3); Neutrophils Percent Auto 58.7 % (45-73); Platelet Count 254 X10*3/uL (160-400); Red Blood Count 3.11 X10*6/uL (4.60-5.80); Red Cell Distribution Width 16.8 % (11.0-16.0); White Blood Count 5.8 X10*3/uL (4.8-10.8)
--- NOTE | 2022-08-05 21:41 | PC.NURSE ---
Pt aox4 resting at the bedside. Right lower extremity edema noted. +CMS. Bilateral pedal pulses present. Right knee replacement 07/31/2022. Dressing in place with sanguineous drainage leaking outside the dressing. Pt reports no pain, tingling, or numbness. Only concerns are the amount of drainage and the swelling. 22G IV line established on the L AC. Labs drawn and sent. Pending U/S of right leg. Pt aware of plan of care.
[2022-08-05 21:47] LABS: Lactic Acid 1.3 mmol/L (0.5-2.0)
[2022-08-05] MEDS: Acetaminophen 325 MG TABLET 650 MG PO (21:55)
[2022-08-05 22:12] LABS: Alanine Aminotransferase 12 U/L (0-40); Albumin Level 3.3 g/dL (3.5-5.0); Alkaline Phosphatase 73 U/L (39-117); Anion Gap 12 (12-20); Aspartate Amino Transferase 23 U/L (5-37); Bilirubin Total 0.9 mg/dL (0.0-1.0); Blood Urea Nitrogen 15 mg/dL (9-16); Calcium 9.1 mg/dL (8.4-10.2); Carbon Dioxide 28 mmol/L (22-29); Chloride 104 mmol/L (96-108); Creatinine Clr Calc Pharmacy 90.7; Estimated Glomerular Filt Rate > 60; Glucose Random 128 mg/dL (60-115); Potassium 4.6 mmol/L (3.3-5.1); Sodium 139 mmol/L (135-145); Total Protein 6.1 g/dL (6.5-8.0)
--- NOTE | 2022-08-05 23:08 | PC.NURSE ---
Dressing changed by MLP. Dry sterile dressing applied. [place] noted to the right knee. Sanguineous drainage from bottom of incision line. Pt tolerated well.
[2022-08-05 23:30] VITALS: BP 124/66; PULSE 73; RESP 18; TEMP 36.6; O2SAT 96
[2022-08-05] MEDS: Enoxaparin Sodium 80 MG/0.8 ML SYRINGE 150 MG SUBCUT (23:49)
== END 2022-08-06 00:14 | disposition home or self-care (01) ==
PROVIDERS: Emergency Provider Emergency Medicine; PCP Internal Medicine
DX: I82.431 Acute embolism and thrombosis of right popliteal vein (principal); R60.0 Localized edema; Z79.899 Other long term (current) drug therapy
CPT/HCPCS: 36415; 80053; 83605; 85025; 93971; 96372; 99284; J1650

== ENCOUNTER → 2022-08-06 09:50 | Outpatient (BNVA) | payer MEDICARE, BC, SELFPAY | PROVIDERS: PCP Internal Medicine; Visit Provider Orthopaedic Surgery ==

== ENCOUNTER 2022-08-07 12:33 | Outpatient (REF) | payer MEDICARE, BC, SELFPAY ==
[2022-08-07 13:57] LABS: Prothrombin Time 11.9 SEC (10.0-13.1)
== END 2022-08-07 12:34 | disposition home or self-care (01) ==
LOC: HO.LAB 12:33
PROVIDERS: PCP Internal Medicine; Referring Provider Orthopaedic Surgery; Visit Provider Physician Assistant
DX: R47.9 Unspecified speech disturbances (principal); E61.1 Iron deficiency; I11.0 Hypertensive heart disease with heart failure; I50.812 Chronic right heart failure; D64.9 Anemia, unspecified; I77.810 Thoracic aortic ectasia; G47.33 Obstructive sleep apnea (adult) (pediatric); G60.9 Hereditary and idiopathic neuropathy, unspecified; R73.03 Prediabetes; Z86.73 Personal history of transient ischemic attack (TIA), and cerebral infarction without residual deficits
CPT/HCPCS: 36415; 85610; 99212

== ENCOUNTER → 2022-08-08 08:38 | Outpatient (BNVA) | payer MEDICARE, BC, SELFPAY | PROVIDERS: PCP Internal Medicine; Visit Provider Orthopaedic Surgery | DX: Z47.1 Aftercare following joint replacement surgery (principal); Z96.651 Presence of right artificial knee joint | CPT/HCPCS: 99212 ==

== ENCOUNTER 2022-08-08 09:24 | Outpatient (REF) | payer MEDICARE, BC, SELFPAY ==
[2022-08-08 10:54] LABS: MANUAL DIFF FLAG NO
[2022-08-08 11:08] LABS: Basophils Percent Auto 0.6 % (0-2); Eosinophils Absolute Auto 0.5 X10*3/uL (0.0-0.4); Eosinophils Percent Auto 9.5 % (0-4); Hematocrit 29.1 % (42.0-52.0); Hemoglobin 9.2 g/dl (14.0-18.0); Imm Gran Abs Auto 0.01 X10*3/uL (0.00-0.03); Imm Gran Pct Auto 0.2 % (0.0-0.4); Lymphocytes Absolute Auto 1.3 X10*3/uL (1.2-4.9); Lymphocytes Percent Auto 23.4 % (20-40); Mean Corpuscular HGB Conc 31.6 g/dl (31.0-36.0); Mean Corpuscular Hemoglobin 27.7 pg (27.0-33.0); Mean Corpuscular Volume 87.7 fL (80.0-98.0); Mean Platelet Volume 10.3 fL (9.4-12.4); Monocytes Absolute Auto 0.6 X10*3/uL (0.1-1.2); Neutrophils Percent Auto 55.3 % (45-73); Platelet Count 322 X10*3/uL (160-400); Red Blood Count 3.32 X10*6/uL (4.60-5.80); Red Cell Distribution Width 16.9 % (11.0-16.0); White Blood Count 5.4 X10*3/uL (4.8-10.8)
[2022-08-08 11:16] LABS: INTERNATIONAL NORM RATIO 1.1 (0.9-1.1); Prothrombin Time 12.5 SEC (10.0-13.1)
== END 2022-08-08 09:25 | disposition home or self-care (01) ==
LOC: HO.10HDL 09:24
PROVIDERS: Visit Provider Orthopaedic Surgery
DX: Z96.651 Presence of right artificial knee joint (principal)
CPT/HCPCS: 36415; 85025; 85610

== ENCOUNTER 2022-08-15 12:54 | Outpatient (REF) | payer MEDICARE, BC, SELFPAY ==
[2022-08-15 13:21] LABS: INTERNATIONAL NORM RATIO 1.3 (0.9-1.1); Prothrombin Time 14.8 SEC (10.0-13.1)
== END 2022-08-15 12:55 | disposition home or self-care (01) ==
LOC: HO.10HDL 12:54
PROVIDERS: Visit Provider Orthopaedic Surgery
DX: Z86.73 Personal history of transient ischemic attack (TIA), and cerebral infarction without residual deficits (principal); Z96.651 Presence of right artificial knee joint
CPT/HCPCS: 36415; 85610; 99212

== ENCOUNTER → 2022-08-19 10:28 | Outpatient (BNVA) | payer MEDICARE, BC, SELFPAY | PROVIDERS: PCP Internal Medicine; Visit Provider Internal Medicine | DX: I82.409 Acute embolism and thrombosis of unspecified deep veins of unspecified lower extremity (principal); Z79.01 Long term (current) use of anticoagulants; Z51.81 Encounter for therapeutic drug level monitoring | CPT/HCPCS: 85610; 99202 ==

== ENCOUNTER → 2022-08-22 11:27 | Outpatient (BNVA) | payer MEDICARE, BC, SELFPAY | PROVIDERS: PCP Internal Medicine; Visit Provider Internal Medicine | DX: I82.409 Acute embolism and thrombosis of unspecified deep veins of unspecified lower extremity (principal); Z79.01 Long term (current) use of anticoagulants; Z51.81 Encounter for therapeutic drug level monitoring | CPT/HCPCS: 85610; 99211 ==

== ENCOUNTER → 2022-08-23 13:27 | Outpatient (BNVA) | payer MEDICARE, BC, SELFPAY | PROVIDERS: PCP Internal Medicine; Visit Provider Internal Medicine | DX: I82.409 Acute embolism and thrombosis of unspecified deep veins of unspecified lower extremity (principal); Z79.01 Long term (current) use of anticoagulants; Z51.81 Encounter for therapeutic drug level monitoring | CPT/HCPCS: 85610; 99211 ==

== ENCOUNTER → 2022-08-30 13:56 | Outpatient (BNVA) | payer MEDICARE, BC, SELFPAY | PROVIDERS: PCP Internal Medicine; Visit Provider Internal Medicine | DX: I82.409 Acute embolism and thrombosis of unspecified deep veins of unspecified lower extremity (principal); Z79.01 Long term (current) use of anticoagulants; Z51.81 Encounter for therapeutic drug level monitoring | CPT/HCPCS: 85610; 99211 ==

== ENCOUNTER → 2022-09-02 10:42 | Outpatient (BNVA) | payer MEDICARE, BC, SELFPAY | PROVIDERS: PCP Internal Medicine; Visit Provider Internal Medicine | DX: G47.33 Obstructive sleep apnea (adult) (pediatric) (principal); E66.9 Obesity, unspecified; Z68.32 Body mass index [BMI] 32.0-32.9, adult; Z99.89 Dependence on other enabling machines and devices | CPT/HCPCS: 99212 ==

== ENCOUNTER → 2022-09-04 14:06 | Outpatient (BNVA) | payer MEDICARE, BC, SELFPAY | PROVIDERS: PCP Internal Medicine; Visit Provider Internal Medicine | DX: I82.409 Acute embolism and thrombosis of unspecified deep veins of unspecified lower extremity (principal); Z79.01 Long term (current) use of anticoagulants; Z51.81 Encounter for therapeutic drug level monitoring | CPT/HCPCS: 85610; 99211 ==

== ENCOUNTER 2022-09-16 13:30 | Outpatient (AMB) | payer MEDICARE, BC, SELFPAY ==
--- NOTE | 2022-09-16 13:43 | MHC.OFFVISCO ---
Intake Intake Visit Reasons: Anticoagulation Allergies lisinopril [LISINOPRIL] Allergy (Severe, Verified 09/16/22 13:39) TONGUE SWELLING, CONFUSION Medication List - Last Reconciled 09/16/22 by Dana Wiseman RN acetaminophen 650 mg PO BID allopurinol 300 mg PO DAILY ascorbic acid (vitamin C) (Vitamin C) 1 g PO DAILY atorvastatin 40 mg PO BEDTIME brimonidine 0.2% 1 drp ophthalmic-Left BID diphenhydramine HCl (Benadryl) 25 mg PO BEDTIME PRN docusate sodium 100 mg PO BID PRN dorzolamide-timolol 22.3-6.8 mg/mL 1 drp ophthalmic (eye) BEDTIME ferrous sulfate 325 mg PO DAILY furosemide (Lasix) 20 mg PO DAILY gabapentin 300 mg PO BEDTIME 30 days latanoprost 0.005% 1 drp ophthalmic (eye) BEDTIME loperamide (Imodium A-D) 2 mg PO BID PRN metoprolol succinate ER 200 mg PO DAILY multivitamin 1 tab PO DAILY nifedipine ER 60 mg PO DAILY pantoprazole 40 mg PO DAILY 30 days psyllium husk (Metamucil) 1 tbsp PO BID PRN [teds hose As directed] warfarin 5 mg PO DAILY warfarin 1 mg See Protocol PO DAILY 30 days Nursing Note INR: 2.2- in therapeutic range Medications and supplements reviewed No changes in health, diet, medications, or supplements, Denies any signs and symptoms of bleeding or bruising or clotting. Bleeding, bruising, clotting discussed Nutritional guidance given Dose: 7.5mg x 6, 5mg x 1 F/U INR: 1 week Patient verbalizes understanding of instructions given pt amb with walker, cont with physical therapy twice per week Anti-Coag Initial Assessment Social Hx Patient Tobacco Use Status: Never used Tobacco alcohol intake: former Alcohol intake frequency: does not drink Cardiovascular Hx: HTN, CAD and CHF Lung Disease HX: DVT/PE and Other (VY- cpap) Endocrine Hx: Diabetes (pre diabetic) Musculoskeletal Hx: Arthritis and Gout Blood Disorder Hx: Anemia and Hyperlipidemia GI Hx: Bleeding (GI, rectal) (varices), Diverticulosis and Other (IBS with diarrhea) Neurological Hx: Stroke/TIA Cancer HX: No Psych. Illness/Depression: No Coding Level of Care Code Est Patient Level 1 Diagnoses Current use of anticoagulant therapy Z79.01 Results AMB INR Fingerstick AMB INR Fingerstick 2.2 Last Edit by Dana Wiseman RN on 09/16/22 13:45 Assessment & Plan Assessment & Plan (1) Current use of anticoagulant therapy: Code(s): Z79.01 - termination clerk (current) use of anticoagulants Category: Medical
[2022-09-17 15:40] LABS: Prothrombin Time Whole Bld POC 26.7 sec (11.1-13.5); ~PT, ~INR - Anti Coag Clinic 2.2 (0.9-1.1)
== END 2022-09-16 14:01 | disposition home or self-care (01) ==
LOC: HO.ACS 13:30
PROVIDERS: PCP Internal Medicine; Visit Provider Internal Medicine
DX: Z79.01 Long term (current) use of anticoagulants (principal)

== ENCOUNTER → 2022-09-16 13:30 | Outpatient (BNVA) | payer MEDICARE, BC, SELFPAY | PROVIDERS: PCP Internal Medicine; Visit Provider Internal Medicine | DX: I82.409 Acute embolism and thrombosis of unspecified deep veins of unspecified lower extremity (principal); Z79.01 Long term (current) use of anticoagulants; Z51.81 Encounter for therapeutic drug level monitoring | CPT/HCPCS: 85610; 99211 ==

== ENCOUNTER 2022-09-16 14:12 | Outpatient (AMB) | payer MEDICARE, BC, SELFPAY ==
--- NOTE | 2022-09-16 14:14 | A.OFFVIS_ITS ---
Intake Vital Signs 09/16/22 14:24 Height 5 ft 9 in Weight 218 lb BMI 32.2 Intake Visit Reasons: PO RT Knee revision TKA 07/31/22 NE Intake Note: Alek is a 67 year old male who presents today for a post operative right knee revision TKA, 07/31/22 NE. States he conts to attend P.T and is doingwell. Reports his swelling has improved and is feeling sore due to attending P.T earlier today. Allergies lisinopril [LISINOPRIL] Allergy (Severe, Verified 09/16/22 14:27) TONGUE SWELLING, CONFUSION HPI PO RT Knee revision TKA 07/31/22 NE HPI Details 67-year-old male who returns to the office today for a post-op right knee revision TKA, 07/31/[address] Chavarria. He continues to attend physical therapy with benefits. He states he his swelling is improved but he does have soreness in his knee with physical therapy. He is doing well otherwise and has no concerns today. [facility] Medical History Arthritis Ascending aorta dilation Back pain C. difficile diarrhea Chronic diarrhea Chronic heart failure with preserved ejection fraction (HFpEF) Chronic right heart failure Diarrhea Environmental allergies Essential hypertension GERD (gastroesophageal reflux disease) Gout Hiatal hernia History of alcoholism History of esophageal varices History of GI bleed History of TIA (transient ischemic attack) History of Tgslo-Nttlyzwms-Ybvqi (WPW) syndrome HTN (hypertension) Idiopathic peripheral neuropathy Internal derangement of right knee Lumbar spondylosis Morbid obesity Multiple lacunar infarcts Nocturnal hypoxemia Obesity (BMI 30-39.9) On beta miguel at home VY (obstructive sleep apnea) VY on CPAP Pre-diabetes Routine medical exam Shoulder injury Transient alteration of awareness Surgical History H/O cardiac radiofrequency ablation History of colonoscopy History of esophagogastroduodenoscopy (EGD) Hx of total knee replacement S/P PICC central line placement Family History Father Diabetes mellitus Social History Household Members: Significant Other and Family Household Members Other:: BROTHER Housing: House Housing Other:: lives with s/o and brother Are you a primary transitional care manager to a significant other at home: No Do you presently have visiting nurse or other home services: No Alcohol intake: former Year quit: 1998 Patient Tobacco Use Status: Never used Tobacco e-Cigarette/Vaping Use: Never Used Second Hand Smoke Exposure: Yes Advance Directives Date on File: 05/03/20 service: No Current occupational status: retired 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 No areas of skin breakdown, no redness or joint effusion. He does have some mild edema in his LE. Calf supple, nontender. NVI. Results AMB INR Fingerstick AMB INR Fingerstick 2.2 Last Edit by Dana Wiseman RN on 09/16/22 13:45 Assessment & Plan Assessment & Plan (1) Status post revision of total replacement of right knee: Code(s): Z96.651 - Presence of right artificial knee joint Plan He will continue to work with physical therapy continuing to increase his quad strengthening and gait training. He continues with the coumadin managed by the coumadin clinic for his LE DVT. He will increase activity as tolerated and see back in 6 weeks with x-rays with Dr. Chavarria, sooner if needed. Patient Instructions: Scribed for Mariah Love PA-C, by Manjeet Jensen medical office receptionist, on 09/16/2022 at 2:15 PM EST. I, Mariah Love PA-C, have personally reviewed and agree with the information entered by the scribe. Coding Level of Care Code Global (10860) Diagnoses Status post revision of total replacement of right knee Z96.651
[2022-09-16 14:24] VITALS: BMI 32.2
== END 2022-09-16 14:36 | disposition home or self-care (01) ==
PROVIDERS: PCP Internal Medicine; Visit Provider Physician Assistant
DX: Z96.651 Presence of right artificial knee joint (principal)
CPT/HCPCS: 99024

== ENCOUNTER → 2022-09-20 09:32 | Outpatient (BNVA) | payer MEDICARE, BC, SELFPAY | PROVIDERS: PCP Internal Medicine; Visit Provider Internal Medicine ==

== ENCOUNTER 2022-09-23 14:18 | Outpatient (AMB) | payer MEDICARE, BC, SELFPAY ==
--- NOTE | 2022-09-23 10:04 | MHC.OFFVISCO ---
Intake Intake Visit Reasons: Anticoagulation Allergies lisinopril [LISINOPRIL] Allergy (Severe, Verified 09/23/22 14:26) TONGUE SWELLING, CONFUSION Medication List - Last Reconciled 09/23/22 by Dana Wiseman RN acetaminophen 650 mg PO BID allopurinol 300 mg PO DAILY ascorbic acid (vitamin C) (Vitamin C) 1 g PO DAILY atorvastatin 40 mg PO BEDTIME brimonidine 0.2% 1 drp ophthalmic-Left BID diphenhydramine HCl (Benadryl) 25 mg PO BEDTIME PRN docusate sodium 100 mg PO BID PRN dorzolamide-timolol 22.3-6.8 mg/mL 1 drp ophthalmic (eye) BEDTIME ferrous sulfate 325 mg PO DAILY furosemide (Lasix) 20 mg PO DAILY gabapentin 300 mg PO BEDTIME 30 days latanoprost 0.005% 1 drp ophthalmic (eye) BEDTIME loperamide (Imodium A-D) 2 mg PO BID PRN metoprolol succinate ER 200 mg PO DAILY multivitamin 1 tab PO DAILY nifedipine ER 60 mg PO DAILY pantoprazole 40 mg PO DAILY 30 days psyllium husk (Metamucil) 1 tbsp PO BID PRN [teds hose As directed] warfarin 5 mg See Protocol PO DAILY warfarin 1 mg See Protocol PO DAILY 30 days Nursing Note INR: 2.5- in therapeutic range Medications and supplements reviewed No changes in health, diet, medications, or supplements, Denies any signs and symptoms of bleeding or bruising or clotting. Bleeding, bruising, clotting discussed Nutritional guidance given - eat a greent today Dose: 5mg x 1, 7.5mg x 6 F/U INR: 1 week Patient verbalizes understanding of instructions given pt states took a double dose last week and was instructed to hold warfarin the next day. Anti-Coag Initial Assessment Social Hx Patient Tobacco Use Status: Never used Tobacco alcohol intake: former Alcohol intake frequency: does not drink Cardiovascular Hx: HTN, CAD and CHF Lung Disease HX: DVT/PE and Other (VY- cpap) Endocrine Hx: Diabetes (pre diabetic) Musculoskeletal Hx: Arthritis and Gout Blood Disorder Hx: Anemia and Hyperlipidemia GI Hx: Bleeding (GI, rectal) (varices), Diverticulosis and Other (IBS with diarrhea) Neurological Hx: Stroke/TIA Cancer HX: No Psych. Illness/Depression: No Coding Level of Care Code Est Patient Level 1 Diagnoses Current use of anticoagulant therapy Z79.01 Assessment & Plan Assessment & Plan (1) Current use of anticoagulant therapy: Code(s): Z79.01 - buttermaker (current) use of anticoagulants Category: Medical
[2022-09-23 14:32] LABS: Prothrombin Time Whole Bld POC 29.8 sec (11.1-13.5); ~PT, ~INR - Anti Coag Clinic 2.5 (0.9-1.1)
== END 2022-09-23 14:41 | disposition home or self-care (01) ==
LOC: HO.ACS 14:18
PROVIDERS: PCP Internal Medicine; Visit Provider Internal Medicine
DX: Z79.01 Long term (current) use of anticoagulants (principal)

== ENCOUNTER → 2022-09-23 14:18 | Outpatient (BNVA) | payer MEDICARE, BC, SELFPAY | PROVIDERS: PCP Internal Medicine; Visit Provider Internal Medicine | DX: I82.409 Acute embolism and thrombosis of unspecified deep veins of unspecified lower extremity (principal); Z79.01 Long term (current) use of anticoagulants; Z51.81 Encounter for therapeutic drug level monitoring | CPT/HCPCS: 85610; 99211 ==

== ENCOUNTER 2022-09-25 11:00 | Outpatient (AMB) | payer MEDICARE, BC, SELFPAY ==
--- NOTE | 2022-09-17 16:28 | A.OFFVIS_ITS ---
Intake Intake Visit Reasons: AWV G0438 Allergies lisinopril [LISINOPRIL] Allergy (Severe, Verified 09/16/22 14:27) TONGUE SWELLING, CONFUSION PFSH Medical History Arthritis Ascending aorta dilation Back pain C. difficile diarrhea Chronic diarrhea Chronic heart failure with preserved ejection fraction (HFpEF) Chronic right heart failure Diarrhea Environmental allergies Essential hypertension GERD (gastroesophageal reflux disease) Gout Hiatal hernia History of alcoholism History of esophageal varices History of GI bleed History of TIA (transient ischemic attack) History of Swgtd-Mgqiaqhgz-Pxeai (WPW) syndrome HTN (hypertension) Idiopathic peripheral neuropathy Internal derangement of right knee Lumbar spondylosis Morbid obesity Multiple lacunar infarcts Nocturnal hypoxemia Obesity (BMI 30-39.9) On beta miguel at home VY (obstructive sleep apnea) VY on CPAP Pre-diabetes Routine medical exam Shoulder injury Transient alteration of awareness Surgical History H/O cardiac radiofrequency ablation History of colonoscopy History of esophagogastroduodenoscopy (EGD) Hx of total knee replacement S/P PICC central line placement Family History Father Diabetes mellitus Social History Household Members: Significant Other and Family Household Members Other:: BROTHER Housing: House Housing Other:: lives with s/o and brother Are you a primary care program resident to a significant other at home: No Do you presently have visiting nurse or other home services: No Alcohol intake: former Year quit: 1998 Patient Tobacco Use Status: Never used Tobacco e-Cigarette/Vaping Use: Never Used Second Hand Smoke Exposure: Yes Advance Directives Date on File: 05/03/20 service: No Current occupational status: retired 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
[2022-09-25 11:07] VITALS: BP 128/58; PULSE 58; O2SAT 94; BMI 33.7
--- NOTE | 2022-09-25 11:07 | A.OFFVIS_ITS ---
Intake Vital Signs 09/25/22 11:07 Height 5 ft 9 in Weight 228 lb 6 oz BMI 33.7 BP 128/58 L Blood Pressure Location Lt brachial Position Sitting Pulse 58 Pulse Source Pulse Oximeter Pulse Oximetry (%) 94 Oxygen Delivery Method Room Air Intake Visit Reasons: AWV G0438 Allergies lisinopril [LISINOPRIL] Allergy (Severe, Verified 09/25/22 11:08) TONGUE SWELLING, CONFUSION Medication List - Last Reconciled 09/25/22 by Conchita Chavis MD acetaminophen 650 mg PO BID allopurinol 300 mg PO DAILY ascorbic acid (vitamin C) (Vitamin C) 1 g PO DAILY atorvastatin 40 mg PO BEDTIME brimonidine 0.2% 1 drp ophthalmic-Left BID diphenhydramine HCl (Benadryl) 25 mg PO BEDTIME PRN docusate sodium 100 mg PO BID PRN dorzolamide-timolol 22.3-6.8 mg/mL 1 drp ophthalmic (eye) BEDTIME ferrous sulfate 325 mg PO DAILY furosemide (Lasix) 20 mg PO DAILY gabapentin 300 mg PO BEDTIME 30 days latanoprost 0.005% 1 drp ophthalmic (eye) BEDTIME loperamide (Imodium A-D) 2 mg PO BID PRN metoprolol succinate ER 200 mg PO DAILY multivitamin 1 tab PO DAILY nifedipine ER 60 mg PO DAILY pantoprazole 40 mg PO DAILY 30 days psyllium husk (Metamucil) 1 tbsp PO BID PRN [teds hose As directed] warfarin 5 mg See Protocol PO DAILY warfarin 1 mg See Protocol PO DAILY 30 days HPI HPI Comments History of Present Illness Details AWV Medical/social history reviewed Past medical history reviewed [place] of care / care team list updated Surgical/ hospitalization history reviewed Current medications including OTC and supplements reviewed Family history reviewed Tobacco controlled form updated Alcohol use form updated Illicit drug use in social history reviewed Current diagnosis of depression ?screening updated Appropriate PHQ 2/PHQ-9 completed . Vital signs reviewed Alcohol tobacco drug use reviewed and discussed . MMSE completed . ? Fall risk: ?Assessed Fall history: ?None Have you had any falls with injury in the past year?? No Have you had 2 or more falls in the past year?? No Fall risk assessment completed Home safety discussed with the patient Functional ability assessed and discussed and documented Activities of daily living reviewed and appropriate actions taken . HRA filled out by the patient and reviewed by provider and scanned . Appropriate written screening schedule established . Any health advise needed provided . Advance care planning discussed with the patient , necessary paperwork filled Examination IPPE/AWE: Balance intact [place]berg Failed Tandem walk Failed walk-in turn Failed rise from sit to stand Failed . ?Hearing ?whisper test pass . Medication list reviewed, patient is stable on medications All other providers patient is seeing discussed and noted . [facility] Medical History Arthritis Ascending aorta dilation Back pain C. difficile diarrhea Chronic diarrhea Chronic heart failure with preserved ejection fraction (HFpEF) Chronic right heart failure Diarrhea Environmental allergies Essential hypertension GERD (gastroesophageal reflux disease) Gout Hiatal hernia History of alcoholism History of esophageal varices History of GI bleed History of TIA (transient ischemic attack) History of Wdjiu-Byvisnwaz-[place] (WPW) syndrome HTN (hypertension) Idiopathic peripheral neuropathy Internal derangement of right knee Lumbar spondylosis Morbid obesity Multiple lacunar infarcts Nocturnal hypoxemia Obesity (BMI 30-39.9) On beta miguel at home VY (obstructive sleep apnea) VY on CPAP Pre-diabetes Routine medical exam Shoulder injury Transient alteration of awareness Surgical History H/O cardiac radiofrequency ablation History of colonoscopy History of esophagogastroduodenoscopy (EGD) Hx of total knee replacement S/P PICC central line placement Family History Father Diabetes mellitus Social History Household Members: Significant Other and Family Household Members Other:: BROTHER Housing: House Housing Other:: lives with s/o and brother Are you a primary laboratory animal care veterinarian to a significant other at home: No Do you presently have visiting nurse or other home services: No Alcohol intake: former Year quit: 1998 Patient Tobacco Use Status: Never used Tobacco e-Cigarette/Vaping Use: Never Used Second Hand Smoke Exposure: Yes Advance Directives Date on File: 05/03/20 service: No Current occupational status: retired 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 Current occupational exposures/hazards: Yes Cognitive needs: No Hearing needs: No Vision needs: Yes Questionnaire Medicare Wellness Checkup [age] What gender do you identify with?: male During the past 4 weeks, how much have you been bothered by emotional problems such as feeling anxious, depressed, irritable, sad or downhearted, and blue?: not at all During the past 4 weeks, has your physical & emotional health limited your social activities with family, friends, neighbors, or groups?: quite a bit During the past 4 weeks, how much bodily pain have you generally had?: mild pain During the past 4 weeks, was someone available to help you if you needed & wanted help?: yes, quite a bit During the past 4 weeks, what was the hardest physical activity you could do for at least 2 minutes?: light Can you get to places out of walking distance without help? (For eg., can you travel alone on buses, taxis or drive your car?): No Can you go shopping for groceries or clothes without someone's help?: No Can you prepare your own meals?: Yes Can you do your housework without help?: No Because of any health problems, do you need the help of another person with your personal care needs such as eating, bathing, dressing or getting around the house?: No Can you handle your own money without help?: Yes During the past 4 weeks, how would you rate your health in general?: good During the past 4 weeks how have things been going for you?: good & bad parts about equal Do you always fasten your seat belt when you are in a car?: yes, usually During past 4 weeks, have you been bothered by the following: never: Falling or dizzy when standing up, Trouble eating well? and Problems using the telephone?, seldom: Teeth or denture problems? and often: Tiredness or fatigue? Have you fallen 2 or more times in the past year?: No Are you afraid of falling?: Yes Are you a smoker?: no During the past 4 weeks, how many drinks of wine, beer, or other alcoholic beverages did you have?: no alcohol at all Do you exercise for about 20 minutes 3 or more times a week?: yes, most of the time Have you been given information to help with the following?: no: Hazards in your house that might hurt you? and no: Keeping track of your medications? How often do you have trouble taking medicines the way you have been told to take them?: I always take medicine as prescribed How confident are you that you can control & manage most of your health problems?: somewhat confident What is your race?: White Mini Mental State Exam (MMSE) Orientation What is the (year) (season) (date) (day) (month)?: year, season, date, day and month Where are we (state) (county) (town or city) (hospital) (floor)?: state, county, town or city, hospital/clinic and floor Score Score: 10 Activity of Daily Living Bathing - sponge bath, tub bath or shower: receives no assistance (gets in/out by self, if usual bathing means Dressing - getting clothes from closets & drawers, including inner/outer garments & fasteners.: gets clothes & gets completely dressed without help Toileting - going to the 'toilet room' for urine/bowel elimination & cleaning self/arranging clothes: goes to toilet room, cleans self, arranges clothes without help Transfer: moves in & out of bed and chair without help (may use support object) Continence: controls urination/bowel movements completely by self Feeding: feeds self without help Total Score: 0 Information obtained from: patient Using telephone: independent Traveling: needs assistance Shopping: needs assistance Preparing meals: independent Housework: needs assistance Taking medicine: independent Managing money: independent PHQ-9 Over the last 2 weeks, how often have you been bothered by any of the following problems? 1. Little interest or pleasure in doing things: not at all 2. Feeling down, depressed, or hopeless: not at all 3. Trouble falling or staying asleep, or sleeping too much: not at all 4. Feeling tired or having little energy: not at all 5. Poor appetite or overeating: not at all 6. Feeling bad about yourself - or that you are a failure or have let yourself or your family down: not at all 7. Trouble concentrating on things, such as reading the newspaper or watching television: not at all 8. Moving or speaking so slowly that other people could have noticed. Or the opposite - being so fidgety or restless that you have been moving around a lot more than usual: not at all 9. Thoughts that you would be better off or of hurting yourself in some way: not at all Total score: 0 Depression Screening Interpretation: Negative 54873 - PHQ-9 Billing: Yes Source: Developed by Drs. Cornell Toth, Odalys Ponce, Matt Hickman and colleagues, with an educational otoniel from [employer]. Physical Exam Vital Signs: Last Vital Signs Pulse 58 09/25/22 11:07 BP 128/58 L 09/25/22 11:07 Pulse Ox 94 09/25/22 11:07 Oxygen Delivery Method Room Air 09/25/22 11:07 BMI result Body Mass Index 33.7 Assessment & Plan Assessment & Plan (1) Medicare annual wellness visit, initial: Code(s): Z00.00 - Encounter for general adult medical examination without abnormal findings Medications: Refilled allopurinol 300 mg PO DAILY 90 tabs 1RF Quality Reporting (2019) Depression/Bipolar (159/160/161/177) PHQ-9: Total score: 0 Coding Level of Care Code Medicare First (G0438) Diagnoses Medicare annual wellness visit, initial Z00.00 CPT Codes Advance Care Planning - Time spent: 1-15 minutes, not on file ([id number]) Advance Care Planning Advance Care Planning discussion: Completed/Scanned Forms completed: MOLST Time spent: 1-15 minutes, not on file Actual minutes spent: 10
== END 2022-09-25 14:13 | disposition home or self-care (01) ==
PROVIDERS: Visit Provider Internal Medicine
DX: Z00.00 Encounter for general adult medical examination without abnormal findings (principal)
CPT/HCPCS: 1124F; G0438

== ENCOUNTER 2022-09-30 14:44 | Outpatient (AMB) | payer MEDICARE, BC, SELFPAY ==
[2022-09-30 14:50] LABS: ~PT, ~INR - Anti Coag Clinic 2.3 (0.9-1.1)
--- NOTE | 2022-09-30 14:58 | MHC.OFFVISCO ---
Intake Intake Visit Reasons: Anticoagulation Allergies lisinopril [LISINOPRIL] Allergy (Severe, Verified 09/30/22 14:45) TONGUE SWELLING, CONFUSION Medication List - Last Reconciled 09/30/22 by Laverne Mendoza RN acetaminophen 650 mg PO BID allopurinol 300 mg PO DAILY ascorbic acid (vitamin C) (Vitamin C) 1 g PO DAILY atorvastatin 40 mg PO BEDTIME brimonidine 0.2% 1 drp ophthalmic-Left BID diphenhydramine HCl (Benadryl) 25 mg PO BEDTIME PRN docusate sodium 100 mg PO BID PRN dorzolamide-timolol 22.3-6.8 mg/mL 1 drp ophthalmic (eye) BEDTIME ferrous sulfate 325 mg PO DAILY furosemide (Lasix) 20 mg PO DAILY gabapentin 300 mg PO BEDTIME 30 days latanoprost 0.005% 1 drp ophthalmic (eye) BEDTIME loperamide (Imodium A-D) 2 mg PO BID PRN metoprolol succinate ER 200 mg PO DAILY multivitamin 1 tab PO DAILY nifedipine ER 60 mg PO DAILY pantoprazole 40 mg PO DAILY 30 days psyllium husk (Metamucil) 1 tbsp PO BID PRN [teds hose As directed] warfarin 5 mg See Protocol PO DAILY Nursing Note NO CP,SOB,DIET/MED CHANGES,FALLS OR SX OF BLEEDING. CONTINUE PRESENT DOSE AND FOLLOW-UP IN 2 WEEKS GOOD UNDERSTANDING OF DOSING INSTR. Anti-Coag Initial Assessment Social Hx Patient Tobacco Use Status: Never used Tobacco alcohol intake: former Alcohol intake frequency: does not drink Cardiovascular Hx: HTN, CAD and CHF Lung Disease HX: DVT/PE and Other (VY- cpap) Endocrine Hx: Diabetes (pre diabetic) Musculoskeletal Hx: Arthritis and Gout Blood Disorder Hx: Anemia and Hyperlipidemia GI Hx: Bleeding (GI, rectal) (varices), Diverticulosis and Other (IBS with diarrhea) Neurological Hx: Stroke/TIA Cancer HX: No Psych. Illness/Depression: No Coding Level of Care Code Est Patient Level 1 Diagnoses Current use of anticoagulant therapy Z79.01 Assessment & Plan Assessment & Plan (1) Current use of anticoagulant therapy: Code(s): Z79.01 - intermediate (current) use of anticoagulants Category: Medical
== END 2022-09-30 14:59 | disposition home or self-care (01) ==
LOC: HO.ACS 14:44
PROVIDERS: PCP Internal Medicine; Visit Provider Internal Medicine
DX: Z79.01 Long term (current) use of anticoagulants (principal)

== ENCOUNTER → 2022-09-30 14:44 | Outpatient (BNVA) | payer MEDICARE, BC, SELFPAY | PROVIDERS: PCP Internal Medicine; Visit Provider Internal Medicine | DX: I82.409 Acute embolism and thrombosis of unspecified deep veins of unspecified lower extremity (principal); Z51.81 Encounter for therapeutic drug level monitoring; Z79.01 Long term (current) use of anticoagulants | CPT/HCPCS: 85610; 99211 ==

== ENCOUNTER 2022-10-16 14:29 | Outpatient (AMB) | payer MEDICARE, BC, SELFPAY ==
--- NOTE | 2022-10-16 14:34 | MHC.OFFVISCO ---
Intake Intake Visit Reasons: Anticoagulation Allergies lisinopril [LISINOPRIL] Allergy (Severe, Verified 10/16/22 14:30) TONGUE SWELLING, CONFUSION Medication List - Last Reconciled 10/16/22 by Dana Wiseman RN acetaminophen 650 mg PO BID allopurinol 300 mg PO DAILY ascorbic acid (vitamin C) (Vitamin C) 1 g PO DAILY atorvastatin 40 mg PO BEDTIME brimonidine 0.2% 1 drp ophthalmic-Left BID diphenhydramine HCl (Benadryl) 25 mg PO BEDTIME PRN docusate sodium 100 mg PO BID PRN dorzolamide-timolol 22.3-6.8 mg/mL 1 drp ophthalmic (eye) BEDTIME ferrous sulfate 325 mg PO DAILY furosemide (Lasix) 20 mg PO DAILY gabapentin 300 mg PO BEDTIME 30 days latanoprost 0.005% 1 drp ophthalmic (eye) BEDTIME loperamide (Imodium A-D) 2 mg PO BID PRN metoprolol succinate ER 200 mg PO DAILY multivitamin 1 tab PO DAILY nifedipine ER 60 mg PO DAILY pantoprazole 40 mg PO DAILY 30 days psyllium husk (Metamucil) 1 tbsp PO BID PRN [teds hose As directed] warfarin 5 mg PO DAILY Nursing Note INR1.5-?? out of therapeutic range Medications and supplements reviewed Patient status: pt amb to acs with use of cane, s/p TKR pt states may have missed a dose on friday Medications or supplements: no changes Diet: same Denies any signs and symptoms of bleeding or clotting or unusual bruising Bleeding, bruising, clotting discussed - aware at risk for clotting Nutritional guidance given: no greens for 2-3 days, eat reds to raise inr Dose: 10mg today and tomm, then cont reg 7.5mx 6, 5mg x 1 F/U INR Date : fri10/21/22? Patient verbalizing understanding of instructions given. pcp office dr vazquez called with low inr/dosing and f/u appt friday. spoke to oracio at 3:30pm composed note to pcp Anti-Coag Initial Assessment Social Hx Patient Tobacco Use Status: Never used Tobacco alcohol intake: former Alcohol intake frequency: does not drink Cardiovascular Hx: HTN, CAD and CHF Lung Disease HX: DVT/PE and Other (VY- cpap) Endocrine Hx: Diabetes (pre diabetic) Musculoskeletal Hx: Arthritis and Gout Blood Disorder Hx: Anemia and Hyperlipidemia GI Hx: Bleeding (GI, rectal) (varices), Diverticulosis and Other (IBS with diarrhea) Neurological Hx: Stroke/TIA Cancer HX: No Psych. Illness/Depression: No Coding Level of Care Code Est Patient Level 1 Diagnoses Current use of anticoagulant therapy Z79.01 Assessment & Plan Assessment & Plan (1) Current use of anticoagulant therapy: Code(s): Z79.01 - FDC (current) use of anticoagulants Category: Medical
[2022-10-16 14:36] LABS: Prothrombin Time Whole Bld POC 18.3 sec (11.1-13.5); ~PT, ~INR - Anti Coag Clinic 1.5 (0.9-1.1)
== END 2022-10-16 14:50 | disposition home or self-care (01) ==
LOC: HO.ACS 14:29
PROVIDERS: PCP Internal Medicine; Visit Provider Internal Medicine
DX: Z79.01 Long term (current) use of anticoagulants (principal)

== ENCOUNTER → 2022-10-16 14:29 | Outpatient (BNVA) | payer MEDICARE, BC, SELFPAY | PROVIDERS: PCP Internal Medicine; Visit Provider Internal Medicine | DX: I82.409 Acute embolism and thrombosis of unspecified deep veins of unspecified lower extremity (principal); Z79.01 Long term (current) use of anticoagulants; Z51.81 Encounter for therapeutic drug level monitoring | CPT/HCPCS: 85610; 99211 ==

== ENCOUNTER 2022-10-21 09:38 | Outpatient (AMB) | payer MEDICARE, BC, SELFPAY ==
--- NOTE | 2022-10-21 09:54 | MHC.OFFVISCO ---
Intake Intake Visit Reasons: Anticoagulation Allergies lisinopril [LISINOPRIL] Allergy (Severe, Verified 10/21/22 09:51) TONGUE SWELLING, CONFUSION Medication List - Last Reconciled 10/21/22 by Dana Wiseman RN acetaminophen 650 mg PO BID allopurinol 300 mg PO DAILY ascorbic acid (vitamin C) (Vitamin C) 1 g PO DAILY atorvastatin 40 mg PO BEDTIME brimonidine 0.2% 1 drp ophthalmic-Left BID diphenhydramine HCl (Benadryl) 25 mg PO BEDTIME PRN docusate sodium 100 mg PO BID PRN dorzolamide-timolol 22.3-6.8 mg/mL 1 drp ophthalmic (eye) BEDTIME ferrous sulfate 325 mg PO DAILY furosemide (Lasix) 20 mg PO DAILY gabapentin 300 mg PO BEDTIME 30 days latanoprost 0.005% 1 drp ophthalmic (eye) BEDTIME loperamide (Imodium A-D) 2 mg PO BID PRN metoprolol succinate ER 200 mg PO DAILY multivitamin 1 tab PO DAILY nifedipine ER 60 mg PO DAILY pantoprazole 40 mg PO DAILY 30 days psyllium husk (Metamucil) 1 tbsp PO BID PRN [teds hose As directed] warfarin 5 mg See Protocol PO DAILY Nursing Note INR 2.7- out of therapeutic range Medications and supplements reviewed Patient status: amb with cane, cont with physical therapy, c.o neuropathy- enc to notify pcp Medications or supplements: no changes Diet: same Denies any signs and symptoms of bleeding or clotting or unusual bruising Bleeding, bruising, clotting discussed Nutritional guidance given: eat a green today and tomm Dose: 5mg x 1, 7.5mg x 6 F/U INR Date : 1 week? Patient verbalizing understanding of instructions given. Anti-Coag Initial Assessment Social Hx Patient Tobacco Use Status: Never used Tobacco alcohol intake: former Alcohol intake frequency: does not drink Cardiovascular Hx: HTN, CAD and CHF Lung Disease HX: DVT/PE and Other (VY- cpap) Endocrine Hx: Diabetes (pre diabetic) Musculoskeletal Hx: Arthritis and Gout Blood Disorder Hx: Anemia and Hyperlipidemia GI Hx: Bleeding (GI, rectal) (varices), Diverticulosis and Other (IBS with diarrhea) Neurological Hx: Stroke/TIA Cancer HX: No Psych. 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
[2022-10-21 09:56] LABS: Prothrombin Time Whole Bld POC 32.2 sec (11.1-13.5); ~PT, ~INR - Anti Coag Clinic 2.7 (0.9-1.1)
== END 2022-10-21 10:09 | disposition home or self-care (01) ==
LOC: HO.ACS 09:38
PROVIDERS: PCP Internal Medicine; Visit Provider Internal Medicine
DX: Z79.01 Long term (current) use of anticoagulants (principal)

== ENCOUNTER → 2022-10-21 09:38 | Outpatient (BNVA) | payer MEDICARE, BC, SELFPAY | PROVIDERS: PCP Internal Medicine; Visit Provider Internal Medicine | DX: K22.70 Barrett's esophagus without dysplasia (principal); K58.9 Irritable bowel syndrome, unspecified; I82.409 Acute embolism and thrombosis of unspecified deep veins of unspecified lower extremity; Z79.01 Long term (current) use of anticoagulants; Z51.81 Encounter for therapeutic drug level monitoring | CPT/HCPCS: 85610; 99211; 99212 ==

== ENCOUNTER 2022-10-21 10:28 | Outpatient (AMB) | payer MEDICARE, BC, SELFPAY ==
--- NOTE | 2022-10-21 10:39 | MHC.OFFVIS ---
Intake Vital Signs 10/21/22 10:41 Height 5 ft 9 in Weight 227 lb 1.218 oz BMI 33.5 BP 119/69 Blood Pressure Location Lt brachial Position Sitting Pulse 57 Intake Visit Reasons: 6 month follow up Intake Note: Alek presents in the office as a 6 month follow up. CC: States that his BMs have been good but at the moment because of the water pill he has excessive urination. 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 Allergies lisinopril [LISINOPRIL] Allergy (Severe, Verified 10/21/22 10:42) TONGUE SWELLING, CONFUSION HPI 6 month follow up HPI Details RECAP: He had diarrhea and had c diff pos initially treated with flagyl but not better then on vancomycin and completed course he still has diarrhea has to take imodium to control it otherwise it can be bad his brother did have c diff as well Due to his ongoing sx I did re order c diff testing EGd/colon- 12/2019--barretts and tubular adenomas \ repeat C diff 08/2020--negative INTERIM: slow recovery from knee surgery he has no major abdominal complaints no stool urgency or diarrhea no abdominal pain, no nausea or vomiting no dysphagia, no heartburn still takes probiotics, v occ imodium appetite is good trying to work on more fiber on his diet-but on coumadin for blood clot from surgery EXAM: GENERAL: The patient is well developed and nontoxic. VITAL SIGNS:see workflow HEENT: Nonicteric sclerae, PERRLA, EOMI. Oropharynx clear. Moist mucous membranes. Conjunctivae appear well perfused. No thyroid mass. CHEST: Chest wall is nontender. HEART: Regular rate and rhythm without murmurs. LUNGS: Clear to auscultation bilaterally. ABDOMEN: Soft, positive bowel sounds, nontender, no organomegaly.no flank tenderness SKIN: No rash, no excessive bruising, petechiae, or purpura. NEUROLOGIC: Cranial nerves II-XII intact without motor/sensory deficit. A/P: 1/ Altered bowel habits,post infectious IBS, doing better now, he has issues with mobility and now on coumadin for DVT 2/ barretts esophagus with inflammation, chronic PLAN 1/? He is still recovering from knee surgery and DVT, will hold on EGD and colonoscopy for the moment, can schedule once he is more stable 2/ cont with high fiber intake, 3/ cont with PPI [facility] Medical History Arthritis Ascending aorta dilation Back pain C. difficile diarrhea Chronic diarrhea Chronic heart failure with preserved ejection fraction (HFpEF) Chronic right heart failure Diarrhea Environmental allergies Essential hypertension GERD (gastroesophageal reflux disease) Gout Hiatal hernia History of alcoholism History of esophageal varices History of GI bleed History of TIA (transient ischemic attack) History of Ycsmx-Hvqdvynvr-Njrlt (WPW) syndrome HTN (hypertension) Idiopathic peripheral neuropathy Internal derangement of right knee Lumbar spondylosis Morbid obesity Multiple lacunar infarcts Nocturnal hypoxemia Obesity (BMI 30-39.9) On beta miguel at home VY (obstructive sleep apnea) VY on CPAP Pre-diabetes Routine medical exam Shoulder injury Transient alteration of awareness Surgical History H/O cardiac radiofrequency ablation History of colonoscopy History of esophagogastroduodenoscopy (EGD) Hx of total knee replacement S/P PICC central line placement Family History Father Diabetes mellitus Social History Household Members: Significant Other and Family Household Members Other:: BROTHER Housing: House Housing Other:: lives with s/o and brother Are you a primary career and guidance counselor to a significant other at home: No Do you presently have visiting nurse or other home services: No Alcohol intake: former Year quit: 1998 Patient Tobacco Use Status: Never used Tobacco e-Cigarette/Vaping Use: Never Used Second Hand Smoke Exposure: Yes Advance Directives Date on File: 05/03/20 service: No Current occupational status: retired 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
[2022-10-21 10:41] VITALS: BP 119/69; PULSE 57; BMI 33.5
== END 2022-10-21 11:10 | disposition home or self-care (01) ==
PROVIDERS: PCP Internal Medicine; Visit Provider Internal Medicine Gastroenterology
DX: K22.70 Barrett's esophagus without dysplasia (principal); K58.9 Irritable bowel syndrome, unspecified
CPT/HCPCS: 99213

== ENCOUNTER 2022-10-25 12:34 | Outpatient (AMB) | payer MEDICARE, BC, SELFPAY ==
[2022-10-25 12:42] VITALS: BP 108/62; PULSE 70; O2SAT 94; BMI 34.3
--- NOTE | 2022-10-25 12:42 | MHC.PC.OV ---
Vital Signs 10/25/22 12:42 Height 5 ft 9 in Weight 232 lb 2 oz BMI 34.3 BP 108/62 Blood Pressure Location Rt brachial Position Sitting Pulse 70 Pulse Source Pulse Oximeter Pulse Oximetry (%) 94 Oxygen Delivery Method Room Air Intake Visit Reasons: neuropathy pain Allergies lisinopril [LISINOPRIL] Allergy (Severe, Verified 10/25/22 12:46) TONGUE SWELLING, CONFUSION Medication List - Last Reconciled 10/25/22 by Conchita Chavis MD acetaminophen 650 mg PO BID allopurinol 300 mg PO DAILY ascorbic acid (vitamin C) (Vitamin C) 1 g PO DAILY atorvastatin 40 mg PO BEDTIME brimonidine 0.2% 1 drp ophthalmic-Left BID diphenhydramine HCl (Benadryl) 25 mg PO BEDTIME PRN docusate sodium 100 mg PO BID PRN dorzolamide-timolol 22.3-6.8 mg/mL 1 drp ophthalmic (eye) BEDTIME ferrous sulfate 325 mg PO DAILY furosemide (Lasix) 20 mg PO DAILY gabapentin 300 mg PO BEDTIME 30 days latanoprost 0.005% 1 drp ophthalmic (eye) BEDTIME metoprolol succinate ER 200 mg PO DAILY multivitamin 1 tab PO DAILY nifedipine ER 60 mg PO DAILY pantoprazole 40 mg PO DAILY 30 days psyllium husk (Metamucil) 1 tbsp PO BID PRN [teds hose As directed] warfarin 5 mg See Protocol PO DAILY Tobacco use date assessed: 10/25/22 Fall risk assessment: No Falls in past year Last assessed Fall Risk: 10/25/22 Dental Screening Dental Screen Date: 10/25/22 Did you have a dental visit in the last 12 months?: No Did you have a dental problem in the last 6 months where you did not have access to dental care?: No Was dental information given to patient?: No HPI neuropathy pain HPI Details Patient is a 67 year old gentleman came in today for his regular follow-up appointment Only medications from PCP office are allopurinol, for gout, indomethacin as needed for flare-up of gout and gabapentin for peripheral neuropathy pain. Patient states that his peripheral neuropathy is keeping him awake at night with burning pain. I am increasing his gabapentin to 600 mg, patient is aware of side effects and risk of fall with this medication. Patient is seeing cardiology for ascending aortic aneurysm last CTA 2022, showed aortic size of 4.7 cm x 4.7 cm. No change from 2020. Obstructive sleep apnea: Patient is using CPAP machine regularly Blood pressure management through cardiology office Patient also have a chronic right heart failure and coronary artery calcifications seen on CAT scan He is taking atorvastatin 40 mg for lipid control, and metoprolol 200 mg through Cardiology along with nifedipine 90 mg for blood pressure Patient is also seeing Gastroenterology and is taking pantoprazole 40 mg which he tells me that he is now only taking as needed. Orthopedic after knee replacement Continued to have anemia after the knee replacement last hemoglobin was 9.2 08/08/2022 He is on iron supplement. I have ordered another CBC for him that he is to have next week. Follow-up 3 months for medication refill [facility] Medical History Arthritis Ascending aorta dilation Back pain C. difficile diarrhea Chronic diarrhea Chronic heart failure with preserved ejection fraction (HFpEF) Chronic right heart failure Diarrhea Environmental allergies Essential hypertension GERD (gastroesophageal reflux disease) Gout Hiatal hernia History of alcoholism History of esophageal varices History of GI bleed History of TIA (transient ischemic attack) History of Waavy-Vjznibrir-Vyzog (WPW) syndrome HTN (hypertension) Idiopathic peripheral neuropathy Internal derangement of right knee Lumbar spondylosis Morbid obesity Multiple lacunar infarcts Nocturnal hypoxemia Obesity (BMI 30-39.9) On beta miguel at home VY (obstructive sleep apnea) VY on CPAP Pre-diabetes Routine medical exam Shoulder injury Transient alteration of awareness Surgical History H/O cardiac radiofrequency ablation History of colonoscopy History of esophagogastroduodenoscopy (EGD) Hx of total knee replacement S/P PICC central line placement Family History Father Diabetes mellitus Social History Household Members: Significant Other and Family Household Members Other:: BROTHER Housing: House Housing Other:: lives with s/o and brother Are you a primary career placement services counselor to a significant other at home: No Do you presently have visiting nurse or other home services: No Alcohol intake: former Year quit: 1998 Patient Tobacco Use Status: Never used Tobacco e-Cigarette/Vaping Use: Never Used Second Hand Smoke Exposure: Yes Advance Directives Date on File: 05/03/20 service: No Current occupational status: retired 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 How often do you have a drink containing alcohol?: Never 3. How often do you have six or more drinks on one occasion?: Never Total Score: 0 Score Reviewed/Action Taken: Yes JEANNETTE-7 AMB Questionnaire JEANNETTE-7 Date JEANNETTE - 7 assessed: 02/28/21 Source: Developed by Drs. Cornell Toth, Odalys Ponce, Matt Hickman and colleagues, with an educational otoniel from [employer]. Review of Systems Const Denies chills, Denies excessive sweating, Denies fever(s) and Denies poor appetite Eyes Denies blurry vision and Denies eye pain ENT Denies disequilibrium, Denies sore throat, Denies throat swelling and Denies tongue swelling Card Denies chest pain at rest, Denies radiating jaw, neck or arm pain and Denies paroxysmal nocturnal dyspnea Resp Denies cough and Denies hemoptysis GI Denies melena, Denies change in stool character, Denies coffee ground emesis and Denies vomiting Musc Reports as per HPI Skin/Breast Reports as per HPI Neuro Denies tremor(s) and Denies disequilibrium Endo Denies cold intolerance and Denies excessive sweating Aller/Immun Denies throat swelling and Denies tongue swelling Physical exam (Primary Care) Vital Signs: Last Vital Signs Pulse 70 10/25/22 12:42 BP 108/62 10/25/22 12:42 Pulse Ox 94 10/25/22 12:42 Oxygen Delivery Method Room Air 10/25/22 12:42 BMI result Body Mass Index 34.3 Tobacco/Smoking Status: Tobacco use Status Tobacco use date assessed 10/25/22 10/25/22 12:47 Patient Tobacco Use Status Never used Tobacco 10/25/22 12:44 e-Cigarette/Vaping Use Never Used 10/25/22 12:44 Thrive Assessment: Date of Thrive Assessment Date Thrive assessed 11/21/20 10/25/22 12:44 Const General: cooperative, comfortable and no acute distress Orientation/consciousness: patient oriented x3 [facility] Head: Yes normocephalic Eyes General: appearance normal, both eyes and all related structures Neck Neck: Yes supple Resp Effort & Inspection: normal respiratory effort, no cough and no stridor Cardio Rhythm: regular rhythm Heart sounds: S1 normal heart sound present and S2 normal heart sound present Skin General skin exam: turgor normal Neuro General: patient oriented x3, tone normal and moves all extremities Assessment and Plan Assessment & Plan (1) Anemia: Code(s): D64.9 - Anemia, unspecified (2) Chronic right-sided heart failure: Code(s): I50.812 - Chronic right heart failure (3) Idiopathic peripheral neuropathy: Code(s): G60.9 - Hereditary and idiopathic neuropathy, unspecified (4) Morbid obesity: Code(s): E66.01 - Morbid (severe) obesity due to excess calories (5) Pre-diabetes: Code(s): R73.03 - Prediabetes (6) Internal derangement of right knee: Code(s): M23.91 - Unspecified internal derangement of right knee (7) Gout: Code(s): M10.9 - Gout, unspecified (8) HTN (hypertension): Code(s): I10 - Essential (primary) hypertension (9) VY (obstructive sleep apnea): Code(s): G47.33 - Obstructive sleep apnea (adult) (pediatric) (10) Ascending aorta dilation: Code(s): I77.810 - Thoracic aortic ectasia Plan Patient is a 67 year old gentleman came in today for his regular follow-up appointment Only medications from PCP office are allopurinol, for gout, indomethacin as needed for flare-up of gout and gabapentin for peripheral neuropathy pain. Patient states that his peripheral neuropathy is keeping him awake at night with burning pain. I am increasing his gabapentin to 600 mg, patient is aware of side effects and risk of fall with this medication. Patient is seeing cardiology for ascending aortic aneurysm last CTA 2021, showed aortic size of 4.7 cm x 4.7 cm. No change from 2020. Obstructive sleep apnea: Patient is using CPAP machine regularly Blood pressure management through cardiology office Patient also have a chronic right heart failure and coronary artery calcifications seen on CAT scan He is taking atorvastatin 40 mg for lipid control, and metoprolol 200 mg through Cardiology along with nifedipine 90 mg for blood pressure Patient is also seeing Gastroenterology and is taking pantoprazole 40 mg which he tells me that he is now only taking as needed. Orthopedic after knee replacement Continued to have anemia after the knee replacement last hemoglobin was 9.2 08/08/2022 He is on iron supplement. I have ordered another CBC for him that he is to have next week. Follow-up 3 months for medication refill Orders: Orders Complete Blood Count Auto Diff Today D64.9 - Anemia, unspecified Medications: Changed From gabapentin 300 mg PO BEDTIME 30 days 90 caps 0RF To gabapentin 600 mg (2 x 300 mg) PO BEDTIME 180 caps 0RF 90 days Coding Level of Care Code Est Pt Level 4 (51250) Diagnoses Anemia D64.9 Chronic right-sided heart failure I50.812 Idiopathic peripheral neuropathy G60.9 Morbid obesity E66.01 Pre-diabetes R73.03 Internal derangement of right knee M23.91 Gout M10.9 HTN (hypertension) I10 VY (obstructive sleep apnea) G47.33 Ascending aorta dilation I77.810
== END 2022-10-25 13:01 | disposition home or self-care (01) ==
PROVIDERS: PCP Internal Medicine; Visit Provider Internal Medicine
DX: I11.0 Hypertensive heart disease with heart failure (principal); I50.812 Chronic right heart failure; E66.01 Morbid (severe) obesity due to excess calories; Z68.34 Body mass index [BMI] 34.0-34.9, adult; I77.810 Thoracic aortic ectasia; D64.9 Anemia, unspecified; G60.9 Hereditary and idiopathic neuropathy, unspecified; R73.03 Prediabetes; G47.33 Obstructive sleep apnea (adult) (pediatric); M23.91 Unspecified internal derangement of right knee; M10.9 Gout, unspecified
CPT/HCPCS: 99214

== ENCOUNTER → 2022-10-28 12:46 | Outpatient (REF) | payer MEDICARE, BC, SELFPAY ==
--- NOTE | 2022-10-28 12:49 | CA_ITS ---
Transthoracic Echocardiogram Patient (Last, First, Middle): Alek Vasquez R Gender: Male Date of : 1955 Age: 67 Procedure Date: 10/28/2022 Procedure Type: Transthoracic Echocardiogram Location: OP Height: 175.26 cm Weight: 104.33 kg BSA: 2.19 m2 Heart Rate: bpm BP: 106 / 62 mmHg Doughnut Icer: LEATHA Referring MD: Otilio Shaffer MD Symptoms: I77.810 - Thoracic aortic ectasia Study Quality: Fair ECG Rhythm: Sinus with PVCs Conclusions: - The left ventricular systolic function is normal. The calculated ejection fraction is 67% by biplane method. - Trace to mild aortic regurgitation. - There is moderate dilatation of the sinuses of Valsalva measuring 4.58 cm and moderate dilatation of the ascending aorta measuring 4.50 cm. Findings Left Ventricle Normal left ventricular cavity size. There is mildly increased left ventricular wall thickness. The left ventricular systolic function is normal. The calculated ejection fraction is 67% by biplane method. There is no evidence of regional wall motion abnormalities. Evidence suggests grade I (mild) diastolic dysfunction. LV peak GLS -21.2%. Right Ventricle Mildly increased right ventricular cavity size. There is normal right ventricular systolic function. Atria The left atrium is normal in size. The right atrium is likely dilated. Aortic Valve There is a normal trileaflet aortic valve. There is no aortic valve stenosis. Trace to mild aortic regurgitation. Mitral Valve The mitral valve appears normal. There is trace mitral valve regurgitation. There is no mitral valve stenosis. Pulmonic Valve The pulmonic valve is likely normal. Tricuspid Valve There is trace tricuspid valve regurgitation. There is no evidence of pulmonary hypertension. Great Vessels There is moderate dilatation of the sinuses of Valsalva measuring 4.58 cm and moderate dilatation of the ascending aorta measuring 4.50 cm. Venous The inferior vena cava is normal in size and collapses greater than 50% with inspiration. Pericardium/Pleural There is no evidence of pericardial effusion. Prior Study Comparison No significant change compared to prior study dated: 03/12/2022. Measurements 2D Linear Measurements IVSd: 1.24 0.6-0.9/0.6-1.0 cm LVIDd: 5.68 3.9-5.3/4.2-5.9 cm LVIDd Index: 2.59 2.4-3.2/2.2-3.1 cm/m2 LVIDs: 3.16 2.0-3.6 cm LVPWd: 1.25 0.7-1.1 cm LA Diam: 3.70 2.7-3.8/3.0-4.0 cm LAIDs Index: 1.69 1.5-2.3 cm/m2 LV Mass: 376.57 67-162/88-224 g LV Mass Index: 171.95 43-95/49-115 g/m2 LVOT Diam: 2.50 3.0+(-)1.3 cm 2D Systolic Function EF 4C: 65.00 >55% EF 2C: 65.00 >55% EF BiP: 66.70 >55% Mitral Valve MV Pk E: 0.72 MV PK A: 0.78 MV Decel Time: 318.00 E/A: 0.90 E'Lateral: 5.33 E'Medial: 4.57 E/E' Med: 15.80 E/E' Lat: 13.50 PHT: 93.00 MVA PHT: 2.37 Decel Wilkinson: 2.26 Aortic Valve AoV Pk Raheel: 1.52 AoV Mn Raheel: 0.95 AoV VTI: 0.37 AoV Pk Grad: 9.00 Aov Mn Grad: 4.00 NEENA Cont.VTI: 3.31 LVOT LVOT Pk Raheel: 1.00 LVOT Mn Raheel: 0.67 LVOT VTI: 0.25 LVOT Pk Grad: 4.00 LVOT Mn Grad: 2.00 LVOT Diam: 2.50 LVOT Area: 4.91 Diastolic Function MV Pk E: 0.72 MV Pk A: 0.78 E/A: 0.90 E'Medial: 4.57 E/E' Med: 15.80 E' Laterial: 5.33 E/E' Lat: 13.50 Tricuspid Valve TR Pk Raheel: 2.43 TR Pk Grad: 24.00 RA Press: 3.00 RVSP: 27.00 Great Vessels Aorta Sinus of Valsalva: 4.58 2.0-3.[address] Ridge: 3.76 1.7-3.4 cm Ao Asc: 4.50 2.1-3.4 cm Updated in Other Vendor System with Status of Final Otilio Shaffer MD electronically signed on 10/29/2022 12:26:26 PM with status of Final
== END ==
LOC: HO.CARD 12:46
PROVIDERS: PCP Internal Medicine; Visit Provider Internal Medicine
DX: I77.810 Thoracic aortic ectasia (principal); Z86.718 Personal history of other venous thrombosis and embolism; Z51.81 Encounter for therapeutic drug level monitoring; Z79.01 Long term (current) use of anticoagulants
CPT/HCPCS: 85610; 93306; 93356; 99211

== ENCOUNTER → 2022-10-28 12:49 | Outpatient (BNV) | payer MEDICARE, BC, SELFPAY | PROVIDERS: PCP Internal Medicine; Visit Provider Internal Medicine | DX: I35.1 Nonrheumatic aortic (valve) insufficiency (principal) | CPT/HCPCS: 93306 ==

== ENCOUNTER 2022-10-28 13:59 | Outpatient (AMB) | payer MEDICARE, BC, SELFPAY ==
--- NOTE | 2022-10-28 14:11 | MHC.OFFVISCO ---
Intake Intake Visit Reasons: Anticoagulation Allergies lisinopril [LISINOPRIL] Allergy (Severe, Verified 10/28/22 14:07) TONGUE SWELLING, CONFUSION Medication List - Last Reconciled 10/28/22 by Taisha Rojas RN acetaminophen 650 mg PO BID allopurinol 300 mg PO DAILY ascorbic acid (vitamin C) (Vitamin C) 1 g PO DAILY atorvastatin 40 mg PO BEDTIME brimonidine 0.2% 1 drp ophthalmic-Left BID diphenhydramine HCl (Benadryl) 25 mg PO BEDTIME PRN docusate sodium 100 mg PO BID PRN dorzolamide-timolol 22.3-6.8 mg/mL 1 drp ophthalmic (eye) BEDTIME ferrous sulfate 325 mg PO DAILY furosemide (Lasix) 20 mg PO DAILY gabapentin 600 mg (2 x 300 mg) PO BEDTIME 90 days latanoprost 0.005% 1 drp ophthalmic (eye) BEDTIME metoprolol succinate ER 200 mg PO DAILY multivitamin 1 tab PO DAILY nifedipine ER 60 mg PO DAILY pantoprazole 40 mg PO DAILY 30 days psyllium husk (Metamucil) 1 tbsp PO BID PRN [teds hose As directed] warfarin 5 mg See Protocol PO DAILY Nursing Note INR: 2.7 JUST OUT OF therapeutic range 2.0 - 2.5 Medications and supplements reviewed No changes in health, diet, medications, or supplements, SLIGHT IRRITATION BEHIND RIGHT EAR -ENC TO TRY THE CREAM HE USES FOR HIS SKIN AND ASK MD TO LOOK AT IT HAD CARDIAC ECHO TODAY- NO CHANGES IN MEDS AT THIS TIME Denies any signs and symptoms of bleeding or bruising or clotting. Bleeding, bruising, clotting discussed Nutritional guidance given - EAT COOKED GREENS TODAY TO LOWER INR MORE - EAT MORE BLUEBERRIES AND BROCCOLI Dose: 5MG X 1 DAYS/ 7.5MG X 6 DAYS F/U INR: 1 WEEK Patient verbalizes understanding of instructions given Anti-Coag Initial Assessment Social Hx Patient Tobacco Use Status: Never used Tobacco alcohol intake: former Alcohol intake frequency: does not drink Cardiovascular Hx: HTN, CAD and CHF Lung Disease HX: DVT/PE and Other (VY- cpap) Endocrine Hx: Diabetes (pre diabetic) Musculoskeletal Hx: Arthritis and Gout Blood Disorder Hx: Anemia and Hyperlipidemia GI Hx: Bleeding (GI, rectal) (varices), Diverticulosis and Other (IBS with diarrhea) Neurological Hx: Stroke/TIA Cancer HX: No Psych. Illness/Depression: No Coding Level of Care Code Est Patient Level 1 Diagnoses Current use of anticoagulant therapy Z79.01 Assessment & Plan Assessment & Plan (1) Current use of anticoagulant therapy: Code(s): Z79.01 - custodial (current) use of anticoagulants Category: Medical
[2022-10-28 14:12] LABS: Prothrombin Time Whole Bld POC 31.9 sec (11.1-13.5); ~PT, ~INR - Anti Coag Clinic 2.7 (0.9-1.1)
== END 2022-10-28 14:20 | disposition home or self-care (01) ==
LOC: HO.ACS 13:59
PROVIDERS: PCP Internal Medicine; Visit Provider Internal Medicine
DX: Z79.01 Long term (current) use of anticoagulants (principal)

== ENCOUNTER 2022-10-30 14:31 | Outpatient (REF) | payer MEDICARE, BC, SELFPAY ==
[2022-10-30 16:03] LABS: MANUAL DIFF FLAG NO
[2022-10-30 16:12] LABS: Basophils Percent Auto 0.6 % (0-2); Eosinophils Absolute Auto 0.3 X10*3/uL (0.0-0.4); Eosinophils Percent Auto 6.1 % (0-4); Hematocrit 37.7 % (42.0-52.0); Hemoglobin 12.4 g/dl (14.0-18.0); Imm Gran Abs Auto 0.01 X10*3/uL (0.00-0.03); Imm Gran Pct Auto 0.2 % (0.0-0.4); Lymphocytes Absolute Auto 1.5 X10*3/uL (1.2-4.9); Lymphocytes Percent Auto 27.9 % (20-40); Mean Corpuscular HGB Conc 32.9 g/dl (31.0-36.0); Mean Corpuscular Hemoglobin 29.5 pg (27.0-33.0); Mean Corpuscular Volume 89.8 fL (80.0-98.0); Mean Platelet Volume 11.5 fL (9.4-12.4); Monocytes Absolute Auto 0.4 X10*3/uL (0.1-1.2); Monocytes Percent Auto 7.7 % (2-11); Neutrophils Absolute Auto 3.1 x10*3/uL (2.0-8.3); Neutrophils Percent Auto 57.5 % (45-73); Platelet Count 189 X10*3/uL (160-400); Red Cell Distribution Width 14.1 % (11.0-16.0); White Blood Count 5.4 X10*3/uL (4.8-10.8)
== END 2022-10-30 14:32 | disposition home or self-care (01) ==
LOC: HO.HMGCLDS 14:31
PROVIDERS: PCP Internal Medicine; Visit Provider Internal Medicine
DX: D64.9 Anemia, unspecified (principal)
CPT/HCPCS: 36415; 85025

== ENCOUNTER 2022-10-31 12:20 | Outpatient (REF) | payer MEDICARE, BC, SELFPAY ==
--- NOTE | ~2022-10-31 | XR_ITS ---
EXAMINATION: XR KNEE, RIGHT XR KNEE AP STANDING CLINICAL INFORMATION: Pain. COMPARISON: Radiographs dated 07/31/2022. TECHNIQUE: Lateral and axial views of the right knee were obtained. AP bilateral standing view of the knees was obtained. FINDINGS: Prosthetic components of the right total knee arthroplasty are appropriately aligned, without periprosthetic fracture or abnormal lucency. No component migration. No joint effusion. The lateral and medial joint space compartments of the left knee are well-maintained. XR/XR knee standing BI IMPRESSION: 1. Appropriate alignment of the right total knee arthroplasty, without evidence of complications. 2. There is no unusual degenerative change of the left knee.
--- NOTE | ~2022-10-31 | XR_ITS ---
EXAMINATION: XR KNEE, RIGHT XR KNEE AP STANDING CLINICAL INFORMATION: Pain. COMPARISON: Radiographs dated 07/31/2022. TECHNIQUE: Lateral and axial views of the right knee were obtained. AP bilateral standing view of the knees was obtained. FINDINGS: Prosthetic components of the right total knee arthroplasty are appropriately aligned, without periprosthetic fracture or abnormal lucency. No component migration. No joint effusion. The lateral and medial joint space compartments of the left knee are well-maintained. XR/XR knee RT 2V IMPRESSION: 1. Appropriate alignment of the right total knee arthroplasty, without evidence of complications. 2. There is no unusual degenerative change of the left knee.
== END 2022-10-31 12:21 | disposition home or self-care (01) ==
LOC: HO.HOSX 12:20
PROVIDERS: Visit Provider Orthopaedic Surgery
DX: Z47.1 Aftercare following joint replacement surgery (principal); Z96.651 Presence of right artificial knee joint
CPT/HCPCS: 73560; 73565; 99212

== ENCOUNTER 2022-10-31 14:12 | Outpatient (AMB) | payer MEDICARE, BC, SELFPAY ==
--- NOTE | 2022-10-31 14:27 | MHC.OFFVIS ---
Intake Vital Signs 10/31/22 14:31 Height 5 ft 5 in Weight 232 lb BMI 38.6 Intake Visit Reasons: P.O RT Knee revision TKA 07/31/22 NE Intake Note: Alek is a 67 year old male who presents today for a post operative right knee revision TKA, 07/31/22 NE. Patient reports that he is doing well but feels like his recovery has been slow. He still has stiffness and feels that his muscles are weak, but continues to work with physical therapy. Allergies lisinopril [LISINOPRIL] Allergy (Severe, Verified 11/04/22 11:32) TONGUE SWELLING, CONFUSION HPI P.O RT Knee revision TKA 07/31/22 NE HPI Details Alek is a 67 year old man who presents ~3 months S/P right rTKA. He feels his recovery has been slow and he continues to have stiffness & weakness in his knee. He says starting to walk after his knee has been immobile for some time is difficult, such as after prolonged sitting for first thing in the morning. He continues to work with PT on strengthening and he denies any symptoms of infection. He says his knee will occasionally want to give out on him while walking, but he denies any falls. [facility] Medical History Arthritis Ascending aorta dilation Back pain C. difficile diarrhea Chronic diarrhea Chronic heart failure with preserved ejection fraction (HFpEF) Chronic right heart failure Diarrhea Environmental allergies Essential hypertension GERD (gastroesophageal reflux disease) Gout Hiatal hernia History of alcoholism History of esophageal varices History of GI bleed History of TIA (transient ischemic attack) History of Anriu-Gzwcqjmbp-Hjbdv (WPW) syndrome HTN (hypertension) Idiopathic peripheral neuropathy Internal derangement of right knee Lumbar spondylosis Morbid obesity Multiple lacunar infarcts Nocturnal hypoxemia Obesity (BMI 30-39.9) On beta miguel at home VY (obstructive sleep apnea) VY on CPAP Pre-diabetes Routine medical exam Shoulder injury Transient alteration of awareness Surgical History H/O cardiac radiofrequency ablation History of colonoscopy History of esophagogastroduodenoscopy (EGD) Hx of total knee replacement S/P PICC central line placement Family History Father Diabetes mellitus Social History Household Members: Significant Other and Family Household Members Other:: BROTHER Housing: House Housing Other:: lives with s/o and brother Are you a primary neonatal critical care nurse to a significant other at home: No Do you presently have visiting nurse or other home services: No Alcohol intake: former Year quit: 1998 Patient Tobacco Use Status: Never used Tobacco e-Cigarette/Vaping Use: Never Used Second Hand Smoke Exposure: Yes Advance Directives Date on File: 05/03/20 service: No Current occupational status: retired 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 Current occupational exposures/hazards: Yes Cognitive needs: No Hearing needs: No Vision needs: Yes Review of Systems Const All systems reviewed & are unremarkable except as noted in HPI and below Physical Exam Vital Signs: BMI result Body Mass Index 38.6 Const General: no acute distress and alert Orientation/consciousness: patient oriented x3 HEENT Head: Yes normocephalic and Yes atraumatic Eyes EOM: EOMs intact bilaterally Resp Effort & Inspection: normal respiratory effort and able to speak in complete sentences Cardio Jugular venous distension: no JVD Skin General skin exam: turgor normal Rashes: no rashes Neuro General: patient oriented x3 Extrem Other: Right Knee: Well-healed incision 0-120 degrees ROM No effusion No warmth Walking comfortably with cane Psych Appearance: grossly normal Affect: normal affect Attitude: cooperative Results Reviewed Results Reviewed: I personally reviewed relevant radiographs. Right total knee arthroplasty in expected post operative position with no hardware complications or evidence of loosening Assessment & Plan Assessment & Plan (1) Status post revision of total replacement of right knee: Code(s): Z96.651 - Presence of right artificial knee joint Plan: This is a 67 year old man S/P right rTKA, DOS: 07/31/22. He is doing well overall, with no drainage or erythema, though he does have some stiffness and quad weakness. He continues to take his Warfarin & Lovenox as directed. I recommend he continue to work with PT and at home on strengthening exercises, and remain active as tolerated, being mindful to not push through pain. He should continue to use his assistive cane prn and work on weight management. He can follow up in 3 months. He is cleared to drive. Plan Scribed for Julian Chavarria MD by Julian Bonner, medical staff services manager, on 10/31/22 at 2:55 PM, EST. Orders: Orders XR knee RT 2V 10/31/22 M25.569 - Pain in unspecified knee XR knee standing BI 10/31/22 M25.569 - Pain in unspecified knee Coding Level of Care Code Global (23530) Diagnoses Status post revision of total replacement of right knee Z96.651
[2022-10-31 14:31] VITALS: BMI 38.6
== END 2022-10-31 15:11 | disposition home or self-care (01) ==
PROVIDERS: PCP Internal Medicine; Visit Provider Orthopaedic Surgery
DX: Z47.1 Aftercare following joint replacement surgery (principal); Z96.651 Presence of right artificial knee joint
CPT/HCPCS: 99213

== ENCOUNTER 2022-11-04 11:22 | Outpatient (AMB) | payer MEDICARE, BC, SELFPAY ==
--- NOTE | 2022-11-04 11:36 | MHC.OFFVISCO ---
Intake Intake Visit Reasons: Anticoagulation Allergies lisinopril [LISINOPRIL] Allergy (Severe, Verified 11/04/22 11:32) TONGUE SWELLING, CONFUSION Medication List - Last Reconciled 11/04/22 by Dana Wiseman RN acetaminophen 650 mg PO BID allopurinol 300 mg PO DAILY ascorbic acid (vitamin C) (Vitamin C) 1 g PO DAILY atorvastatin 40 mg PO BEDTIME brimonidine 0.2% 1 drp ophthalmic-Left BID diphenhydramine HCl (Benadryl) 25 mg PO BEDTIME PRN docusate sodium 100 mg PO BID PRN dorzolamide-timolol 22.3-6.8 mg/mL 1 drp ophthalmic (eye) BEDTIME ferrous sulfate 325 mg PO DAILY furosemide (Lasix) 20 mg PO DAILY gabapentin 600 mg (2 x 300 mg) PO BEDTIME 90 days latanoprost 0.005% 1 drp ophthalmic (eye) BEDTIME metoprolol succinate ER 200 mg PO DAILY multivitamin 1 tab PO DAILY nifedipine ER 60 mg PO DAILY pantoprazole 40 mg PO DAILY 30 days psyllium husk (Metamucil) 1 tbsp PO BID PRN [teds hose As directed] warfarin 5 mg See Protocol PO DAILY Nursing Note INR 2.6-? out of therapeutic range Medications and supplements reviewed Patient status: pt amb with cane Medications or supplements: no changes Diet: same Denies any signs and symptoms of bleeding or clotting or unusual bruising Bleeding, bruising, clotting discussed Nutritional guidance given: eat greens Dose: 7.5mg x 6, 5mg x 1 F/U INR Date :10 days?? Patient verbalizing understanding of instructions given. Anti-Coag Initial Assessment Social Hx Patient Tobacco Use Status: Never used Tobacco alcohol intake: former Alcohol intake frequency: does not drink Cardiovascular Hx: HTN, CAD and CHF Lung Disease HX: DVT/PE and Other (VY- cpap) Endocrine Hx: Diabetes (pre diabetic) Musculoskeletal Hx: Arthritis and Gout Blood Disorder Hx: Anemia and Hyperlipidemia GI Hx: Bleeding (GI, rectal) (varices), Diverticulosis and Other (IBS with diarrhea) Neurological Hx: Stroke/TIA Cancer HX: No Psych. Illness/Depression: No Coding Level of Care Code Est Patient Level 1 Diagnoses Current use of anticoagulant therapy Z79.01 Assessment & Plan Assessment & Plan (1) Current use of anticoagulant therapy: Code(s): Z79.01 - [facility] (current) use of anticoagulants Category: Medical
[2022-11-04 11:37] LABS: Prothrombin Time Whole Bld POC 30.9 sec (11.1-13.5); ~PT, ~INR - Anti Coag Clinic 2.6 (0.9-1.1)
== END 2022-11-04 11:54 | disposition home or self-care (01) ==
LOC: HO.ACS 11:22
PROVIDERS: PCP Internal Medicine; Visit Provider Internal Medicine
DX: Z79.01 Long term (current) use of anticoagulants (principal)

== ENCOUNTER → 2022-11-04 11:22 | Outpatient (BNVA) | payer MEDICARE, BC, SELFPAY | PROVIDERS: PCP Internal Medicine; Visit Provider Internal Medicine | DX: I82.409 Acute embolism and thrombosis of unspecified deep veins of unspecified lower extremity (principal); Z79.01 Long term (current) use of anticoagulants; Z51.81 Encounter for therapeutic drug level monitoring | CPT/HCPCS: 85610; 99211 ==

== ENCOUNTER 2022-11-06 14:02 | Outpatient (AMB) | payer MEDICARE, BC, SELFPAY ==
--- NOTE | 2022-11-06 14:04 | MHC.OFFVIS ---
Intake Vital Signs 11/06/22 14:05 Height 5 ft 9 in Weight 235 lb 2 oz BMI 34.7 BP 138/90 H Blood Pressure Location Rt brachial Position Sitting Pulse 64 Pulse Source Pulse Oximeter Pulse Oximetry (%) 96 Oxygen Delivery Method Room Air Intake Visit Reasons: 3MONTH FOLLOW UP Cerebral Infarction=confirmed Intake Note: Pt presents as a 3 month f/u cerebral infarction. Allergies lisinopril [LISINOPRIL] Allergy (Severe, Verified 11/06/22 14:08) TONGUE SWELLING, CONFUSION environmental allergies Allergy (Unknown, Verified 11/06/22 14:08) Unknown HPI HPI Comments History of Present Illness Details .?67-year-old male with history of congestive heart failure, arthritis, GERD, hypertension, obesity comes for follow up. [facility] last visit he had a DVT in his right leg and is now on warfarin. No episodes of confusion . He had knee surgery and is on PT. Carotid doppler is normal. He is using his CPAP regularly. [facility] Medical History Arthritis Ascending aorta dilation Back pain C. difficile diarrhea Chronic diarrhea Chronic heart failure with preserved ejection fraction (HFpEF) Chronic right heart failure Diarrhea Environmental allergies Essential hypertension GERD (gastroesophageal reflux disease) Gout Hiatal hernia History of alcoholism History of esophageal varices History of GI bleed History of TIA (transient ischemic attack) History of Nrdyx-Tsxlxwsye-Ddnqw (WPW) syndrome HTN (hypertension) Idiopathic peripheral neuropathy Internal derangement of right knee Lumbar spondylosis Morbid obesity Multiple lacunar infarcts Nocturnal hypoxemia Obesity (BMI 30-39.9) On beta miguel at home VY (obstructive sleep apnea) VY on CPAP Pre-diabetes Routine medical exam Shoulder injury Transient alteration of awareness Surgical History H/O cardiac radiofrequency ablation History of colonoscopy History of esophagogastroduodenoscopy (EGD) Hx of total knee replacement S/P PICC central line placement Family History Father Diabetes mellitus Social History Household Members: Significant Other and Family Household Members Other:: BROTHER Housing: House Housing Other:: lives with s/o and brother Are you a primary home care manager to a significant other at home: No Do you presently have visiting nurse or other home services: No Alcohol intake: former Year quit: 1998 Patient Tobacco Use Status: Never used Tobacco e-Cigarette/Vaping Use: Never Used Second Hand Smoke Exposure: Yes Advance Directives Date on File: 05/03/20 service: No Current occupational status: retired 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 Current occupational exposures/hazards: Yes Cognitive needs: No Hearing needs: No Vision needs: Yes Physical Exam Vital Signs: Last Vital Signs Pulse 64 11/06/22 14:05 BP 138/90 H 11/06/22 14:05 Pulse Ox 96 11/06/22 14:05 Oxygen Delivery Method Room Air 11/06/22 14:05 BMI result Body Mass Index 34.7 Const General: cooperative, comfortable and no acute distress Nutritional Appearance: obese Orientation/consciousness: patient oriented x3 Limitations: wheelchair Eyes Pupils: Equal, round and reactive pupils present Neuro General: patient oriented x3, tone normal, moves all extremities and no focal motor deficits Cranial nerves: Yes Facial sensation intact/muscles of mastication intact, Yes Equal, round and reactive pupils present, Yes Nystagmus not present, Yes Normal facial strength present, Yes Midline tongue present and Yes Symmetric palate elevation present Cognition (Neuro): normal cognition Gait exam (Neuro): Antalgic gait present and Assistive device used Coordination: [id number] test normal Assessment & Plan Assessment & Plan (1) Transient alteration of awareness: Comment: It is not clear if the episode 4 mths ago was a TIA- could be related to delsym Code(s): R40.4 - Transient alteration of awareness (2) Multiple lacunar infarcts: Comment: MRI shows atrophy , chronic microangiopathy and multiple lacunar infarcts - risk factor- HTN CHF VY Obesity etc. Code(s): I63.81 - Other cerebral infarction due to occlusion or stenosis of small artery (3) VY on CPAP: Code(s): G47.33 - Obstructive sleep apnea (adult) (pediatric); Z99.89 - Dependence on other enabling machines and devices Plan Hold aspirin . Patient is on warfarin for DVT> He will restart aspirin 81mg qd once warfarin is discontinued Atorvostatin 80 mg qd Goal LDL below 70 CPAP compliance stressed cardiology follow up Carotid doppler minimal stenosis proximal right ICA. Coding Level of Care Code Est Pt Level 4 (53494) Diagnoses Transient alteration of awareness R40.4 Multiple lacunar infarcts I63.81 VY on CPAP G47.33; Z99.89
[2022-11-06 14:05] VITALS: BP 138/90; PULSE 64; O2SAT 96; BMI 34.7
== END 2022-11-06 14:27 | disposition home or self-care (01) ==
PROVIDERS: Visit Provider Psychiatry & Neurology Neurology
DX: R40.4 Transient alteration of awareness (principal); I63.81 Other cerebral infarction due to occlusion or stenosis of small artery; G47.33 Obstructive sleep apnea (adult) (pediatric); Z99.89 Dependence on other enabling machines and devices
CPT/HCPCS: 99214

== ENCOUNTER → 2022-11-06 14:02 | Outpatient (BNVA) | payer MEDICARE, BC, SELFPAY | PROVIDERS: Visit Provider Psychiatry & Neurology Neurology | DX: R40.4 Transient alteration of awareness (principal); I63.81 Other cerebral infarction due to occlusion or stenosis of small artery; G47.33 Obstructive sleep apnea (adult) (pediatric); Z99.89 Dependence on other enabling machines and devices | CPT/HCPCS: 99212 ==

== ENCOUNTER 2022-11-15 13:37 | Outpatient (AMB) | payer MEDICARE, BC, SELFPAY ==
[2022-11-15 13:43] LABS: Prothrombin Time Whole Bld POC 31.9 sec (11.1-13.5); ~PT, ~INR - Anti Coag Clinic 2.7 (0.9-1.1)
--- NOTE | 2022-11-15 13:49 | MHC.OFFVISCO ---
Intake Intake Visit Reasons: Anticoagulation Allergies lisinopril [LISINOPRIL] Allergy (Severe, Verified 11/15/22 13:37) TONGUE SWELLING, CONFUSION environmental allergies Allergy (Unknown, Verified 11/15/22 13:37) Unknown Medication List - Last Reconciled 11/15/22 by Taisha Rojas RN acetaminophen 650 mg PO BID allopurinol 300 mg PO DAILY ascorbic acid (vitamin C) (Vitamin C) 1 g PO DAILY atorvastatin 40 mg PO BEDTIME brimonidine 0.2% 1 drp ophthalmic-Left BID diphenhydramine HCl (Benadryl) 25 mg PO BEDTIME PRN dorzolamide-timolol 22.3-6.8 mg/mL 1 drp ophthalmic (eye) BEDTIME ferrous sulfate 325 mg PO DAILY furosemide (Lasix) 20 mg PO DAILY gabapentin 600 mg (2 x 300 mg) PO BEDTIME 90 days latanoprost 0.005% 1 drp ophthalmic (eye) BEDTIME metoprolol succinate ER 200 mg PO DAILY multivitamin 1 tab PO DAILY nifedipine ER 60 mg PO DAILY pantoprazole 40 mg PO DAILY 30 days warfarin 5 mg PO DAILY Nursing Note INR: 2.7 in therapeutic range 2.0-2.5 Medications and supplements reviewed No changes in health, diet, medications, or supplements, Denies any signs and symptoms of bleeding or bruising or clotting. Bleeding, bruising, clotting discussed Nutritional guidance given - INCREASE COOKED GREENS WEEKLY Dose: KEEP SAME DOSE 5MG X 1 DAY/ 7.5MG X 6 DAYS- IF STILL ELEVATED THEN DECREASE WEEKLY DOSE TO MAKE RANGE 2.0-2.5 F/U INR: 11/29/22 Patient verbalizes understanding of instructions given Anti-Coag Initial Assessment Social Hx Patient Tobacco Use Status: Never used Tobacco alcohol intake: former Alcohol intake frequency: does not drink Cardiovascular Hx: HTN, CAD and CHF Lung Disease HX: DVT/PE and Other (VY- cpap) Endocrine Hx: Diabetes (pre diabetic) Musculoskeletal Hx: Arthritis and Gout Blood Disorder Hx: Anemia and Hyperlipidemia GI Hx: Bleeding (GI, rectal) (varices), Diverticulosis and Other (IBS with diarrhea) Neurological Hx: Stroke/TIA Cancer HX: No Psych. Illness/Depression: No Coding Level of Care Code Est Patient Level 1 Diagnoses Current use of anticoagulant therapy Z79.01 Assessment & Plan Assessment & Plan (1) Current use of anticoagulant therapy: Code(s): Z79.01 - intermediate (current) use of anticoagulants Category: Medical
== END 2022-11-15 13:53 | disposition home or self-care (01) ==
LOC: HO.ACS 13:37
PROVIDERS: PCP Internal Medicine; Visit Provider Internal Medicine
DX: Z79.01 Long term (current) use of anticoagulants (principal)

== ENCOUNTER → 2022-11-15 13:37 | Outpatient (BNVA) | payer MEDICARE, BC, SELFPAY | PROVIDERS: PCP Internal Medicine; Visit Provider Internal Medicine | DX: I82.409 Acute embolism and thrombosis of unspecified deep veins of unspecified lower extremity (principal); Z79.01 Long term (current) use of anticoagulants; Z51.81 Encounter for therapeutic drug level monitoring | CPT/HCPCS: 85610; 99211 ==

== ENCOUNTER 2022-11-26 13:36 | Outpatient (AMB) | payer MEDICARE, BC, SELFPAY ==
[2022-11-26 13:38] VITALS: BP 118/64; PULSE 79; BMI 34.5
--- NOTE | 2022-11-26 13:38 | A.OFFVIS_ITS ---
Intake Vital Signs 11/26/22 13:38 Height 5 ft 9 in Weight 233 lb 11.04 oz BMI 34.5 BP 118/64 Blood Pressure Location Lt brachial Position Sitting Pulse 79 Intake Visit Reasons: 6 mth f/up Intake Note: 6 month follow up [employer]oc [employer] Operations Staff Officer Required: No Accompanied by: Self / Same As Patient Allergies lisinopril [LISINOPRIL] Allergy (Severe, Verified 11/26/22 13:38) TONGUE SWELLING, CONFUSION environmental allergies Allergy (Unknown, Verified 11/26/22 13:38) Unknown Medication List - Last Reconciled 11/26/22 by Otilio Shaffer MD acetaminophen 650 mg PO BID allopurinol 300 mg PO DAILY ascorbic acid (vitamin C) (Vitamin C) 1 g PO DAILY atorvastatin 40 mg PO BEDTIME brimonidine 0.2% 1 drp ophthalmic-Left BID diphenhydramine HCl (Benadryl) 25 mg PO BEDTIME PRN dorzolamide-timolol 22.3-6.8 mg/mL 1 drp ophthalmic (eye) BEDTIME ferrous sulfate 325 mg PO DAILY furosemide (Lasix) 20 mg PO DAILY gabapentin 600 mg (2 x 300 mg) PO BEDTIME 90 days latanoprost 0.005% 1 drp ophthalmic (eye) BEDTIME metoprolol succinate ER 200 mg PO DAILY multivitamin 1 tab PO DAILY nifedipine ER 60 mg PO DAILY pantoprazole 40 mg PO DAILY 30 days warfarin 5 mg See Protocol PO DAILY HPI HPI Comments History of Present Illness Details Alek returns for follow-up regarding congestive heart failure as well as ascending aortic aneurysm. Overall, he is doing fine. No cardiac symptoms Otherwise, history of WPW syndrome/ablation in , but no details available. [facility] Medical History Arthritis Ascending aorta dilation Back pain C. difficile diarrhea Chronic diarrhea Chronic heart failure with preserved ejection fraction (HFpEF) Chronic right heart failure Diarrhea Environmental allergies Essential hypertension GERD (gastroesophageal reflux disease) Gout Hiatal hernia History of alcoholism History of esophageal varices History of GI bleed History of TIA (transient ischemic attack) History of Desed-Bbqgwlfva-Daole (WPW) syndrome HTN (hypertension) Idiopathic peripheral neuropathy Internal derangement of right knee Lumbar spondylosis Morbid obesity Multiple lacunar infarcts Nocturnal hypoxemia Obesity (BMI 30-39.9) On beta miguel at home VY (obstructive sleep apnea) VY on CPAP Pre-diabetes Routine medical exam Shoulder injury Transient alteration of awareness Surgical History S/P PICC central line placement Hx of total knee replacement H/O cardiac radiofrequency ablation History of esophagogastroduodenoscopy (EGD) History of colonoscopy Family History Father Diabetes mellitus Social History Household Members: Significant Other and Family Household Members Other:: BROTHER Housing: House Housing Other:: lives with s/o and brother Are you a primary critical care nurse to a significant other at home: No Do you presently have visiting nurse or other home services: No Alcohol intake: former Year quit: 1998 Patient Tobacco Use Status: Never used Tobacco e-Cigarette/Vaping Use: Never Used Second Hand Smoke Exposure: Yes Advance Directives Date on File: 05/03/20 service: No Current occupational status: retired 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 Current occupational exposures/hazards: Yes Cognitive needs: No Hearing needs: No Vision needs: Yes Review of Systems Const Denies weakness ENT Denies dizziness Card Denies chest pain, Denies chest pain with activity, Denies syncope, Denies rapid heart rate, Denies pedal edema, Denies edema, Denies leg edema, Denies lightheadedness, Denies palpitations, Denies dyspnea, Denies dyspnea on exertion and Denies orthopnea Resp Denies cough, Denies dyspnea and Denies dyspnea on exertion GI Denies hematochezia and Denies change in stool character Musc Denies abnormal gait, Denies muscle cramps, Denies muscle weakness, Denies numbness, Denies radiating pain into limb and Denies tingling Neuro Denies abnormal gait, Denies dizziness, Denies syncope, Denies numbness, Denies tingling and Denies weakness Endo Denies palpitations Physical Exam Vital Signs: Last Vital Signs Pulse 79 11/26/22 13:38 BP 118/64 11/26/22 13:38 BMI result Body Mass Index 34.5 Const General: comfortable and no acute distress Orientation/consciousness: patient oriented x3 HEENT Other: Unremarkable Head: Yes normal to inspection Neck Neck: Yes normal visual inspection Chest Chest palpation & inspection: normal inspection of the chest Resp Auscultation: clear to auscultation bilaterally Cardio Palpation: normal PMI Heart sounds: S1 normal heart sound present, S2 normal heart sound present, no gallops, no murmurs and no rubs GI Palpation (GI): Soft to palpation Back/Spine/Pelvis Other: unremarkable Skin General skin exam: no rashes or lesions noted Neuro General: patient oriented x3 Extrem General: Yes normal to inspection Psych Mental Status: mental status grossly normal Assessment & Plan Assessment & Plan (1) Chronic right heart failure: Code(s): I50.812 - Chronic right heart failure Plan: Stable. Continue diuretics. (2) Coronary artery calcification seen on CAT scan: Code(s): I25.10 - Atherosclerotic heart disease of [place] coronary artery without angina pectoris Plan: CT chest shows coronary calcification. Myocardial perfusion imaging unremarkable. Continue statins. LDL is well controlled. Last couple of LDLs are 29 followed by 54. (3) Ascending aorta dilation: Code(s): I77.810 - Thoracic aortic ectasia Plan: On echocardiogram, most recently ascending aortic size 4.5 cm. Prior to that, it was 4.8/4.[address] scan. Even prior to that, 4.7/4.7. Overall, stable. Recheck with CTA before next visit. (4) Essential hypertension: Code(s): I10 - Essential (primary) hypertension Plan: Stable. No changes. (5) VY (obstructive sleep apnea): Code(s): G47.33 - Obstructive sleep apnea (adult) (pediatric) Plan: Continue CPAP. Orders: Orders CT angio chest aorta 6 Months I71.9 - Aortic aneurysm of unspecified site, without rupture Coding Level of Care Code Est Pt Level 4 (43098) Diagnoses Chronic right heart failure I50.812 Coronary artery calcification seen on CAT scan I25.10 Ascending aorta dilation I77.810 Essential hypertension I10 VY (obstructive sleep apnea) G47.33
== END 2022-11-26 13:56 | disposition home or self-care (01) ==
PROVIDERS: PCP Internal Medicine; Visit Provider Internal Medicine
DX: I50.812 Chronic right heart failure (principal); I25.10 Atherosclerotic heart disease of native coronary artery without angina pectoris; I77.810 Thoracic aortic ectasia; I10 Essential (primary) hypertension; G47.33 Obstructive sleep apnea (adult) (pediatric)
CPT/HCPCS: 99214

== ENCOUNTER → 2022-11-26 13:36 | Outpatient (BNVA) | payer MEDICARE, BC, SELFPAY | PROVIDERS: PCP Internal Medicine; Visit Provider Internal Medicine | DX: I11.0 Hypertensive heart disease with heart failure (principal); I50.32 Chronic diastolic (congestive) heart failure; I50.812 Chronic right heart failure; I25.10 Atherosclerotic heart disease of native coronary artery without angina pectoris; I77.810 Thoracic aortic ectasia; G47.33 Obstructive sleep apnea (adult) (pediatric); Z98.890 Other specified postprocedural states; Z79.01 Long term (current) use of anticoagulants | CPT/HCPCS: 99212 ==

== ENCOUNTER 2022-11-29 12:58 | Outpatient (AMB) | payer MEDICARE, BC, SELFPAY ==
--- NOTE | 2022-11-29 13:06 | MHC.OFFVISCO ---
Intake Intake Visit Reasons: Anticoagulation Allergies lisinopril [LISINOPRIL] Allergy (Severe, Verified 11/29/22 13:01) TONGUE SWELLING, CONFUSION environmental allergies Allergy (Unknown, Verified 11/29/22 13:01) Unknown Medication List - Last Reconciled 11/29/22 by Dana Wiseman RN acetaminophen 650 mg PO BID allopurinol 300 mg PO DAILY ascorbic acid (vitamin C) (Vitamin C) 1 g PO DAILY atorvastatin 40 mg PO BEDTIME brimonidine 0.2% 1 drp ophthalmic-Left BID diphenhydramine HCl (Benadryl) 25 mg PO BEDTIME PRN dorzolamide-timolol 22.3-6.8 mg/mL 1 drp ophthalmic (eye) BEDTIME ferrous sulfate 325 mg PO DAILY furosemide (Lasix) 20 mg PO DAILY gabapentin 600 mg (2 x 300 mg) PO BEDTIME 90 days latanoprost 0.005% 1 drp ophthalmic (eye) BEDTIME metoprolol succinate ER 200 mg PO DAILY multivitamin 1 tab PO DAILY nifedipine ER 60 mg PO DAILY pantoprazole 40 mg PO DAILY 30 days warfarin 5 mg See Protocol PO DAILY Nursing Note INR 3.1-?? out of therapeutic range Medications and supplements reviewed Patient status: pt amb with keanu, states physical therapy ending soon Medications or supplements: no changes, taking tylenol bid Diet: same Denies any signs and symptoms of bleeding or clotting or unusual bruising Bleeding, bruising, clotting discussed Nutritional guidance given: eat greens today and tomm, no reds for 2 days Dose: 5mg today, reduce weekly dosing - 5mg x 3, 7.5mg x 5 F/U INR Date : 2 weeks? Patient verbalizing understanding of instructions given. Anti-Coag Initial Assessment Social Hx Patient Tobacco Use Status: Never used Tobacco alcohol intake: former Alcohol intake frequency: does not drink Cardiovascular Hx: HTN, CAD and CHF Lung Disease HX: DVT/PE and Other (VY- cpap) Endocrine Hx: Diabetes (pre diabetic) Musculoskeletal Hx: Arthritis and Gout Blood Disorder Hx: Anemia and Hyperlipidemia GI Hx: Bleeding (GI, rectal) (varices), Diverticulosis and Other (IBS with diarrhea) Neurological Hx: Stroke/TIA Cancer HX: No Psych. Illness/Depression: No Coding Level of Care Code Est Patient Level 1 Diagnoses Current use of anticoagulant therapy Z79.01 Assessment & Plan Assessment & Plan (1) Current use of anticoagulant therapy: Code(s): Z79.01 - assisted (current) use of anticoagulants Category: Medical
[2022-11-29 13:07] LABS: ~PT, ~INR - Anti Coag Clinic 3.1 (0.9-1.1)
== END 2022-11-29 13:25 | disposition home or self-care (01) ==
LOC: HO.ACS 12:58
PROVIDERS: PCP Internal Medicine; Visit Provider Internal Medicine
DX: Z79.01 Long term (current) use of anticoagulants (principal)

== ENCOUNTER → 2022-11-29 12:58 | Outpatient (BNVA) | payer MEDICARE, BC, SELFPAY | PROVIDERS: PCP Internal Medicine; Visit Provider Internal Medicine | DX: I82.409 Acute embolism and thrombosis of unspecified deep veins of unspecified lower extremity (principal); Z79.01 Long term (current) use of anticoagulants; Z51.81 Encounter for therapeutic drug level monitoring | CPT/HCPCS: 85610; 99211 ==

== ENCOUNTER 2022-12-03 13:55 | Outpatient (AMB) | payer MEDICARE, BC, SELFPAY ==
[2022-12-03 13:58] VITALS: BP 98/60; PULSE 72; O2SAT 94; BMI 34.7
--- NOTE | 2022-12-03 13:58 | MHC.OFFVIS ---
Intake Vital Signs 12/03/22 13:58 Height 5 ft 9 in Weight 235 lb BMI 34.7 BP 98/60 Blood Pressure Location Lt brachial Position Sitting Pulse 72 Pulse Source Pulse Oximeter Pulse Oximetry (%) 94 Oxygen Delivery Method Room Air Intake Visit Reasons: salas Intake Note: pt is here for follow up and states he is using his machine on some nights, he is not transmitting at this time, will reach out to DME. generally feeling ok, just fatigued. Elastic Attacher Overlock Required: No Allergies lisinopril [LISINOPRIL] Allergy (Severe, Verified 12/03/22 14:21) TONGUE SWELLING, CONFUSION environmental allergies Allergy (Unknown, Verified 12/03/22 14:21) Unknown Medication List - Last Reconciled 12/03/22 by Benjamin Amaya MD acetaminophen 650 mg PO BID allopurinol 300 mg PO DAILY ascorbic acid (vitamin C) (Vitamin C) 1 g PO DAILY atorvastatin 40 mg PO BEDTIME brimonidine 0.2% 1 drp ophthalmic-Left BID diphenhydramine HCl (Benadryl) 25 mg PO BEDTIME PRN dorzolamide-timolol 22.3-6.8 mg/mL 1 drp ophthalmic (eye) BEDTIME ferrous sulfate 325 mg PO DAILY furosemide (Lasix) 20 mg PO DAILY gabapentin 600 mg (2 x 300 mg) PO BEDTIME 90 days latanoprost 0.005% 1 drp ophthalmic (eye) BEDTIME metoprolol succinate ER 200 mg PO DAILY multivitamin 1 tab PO DAILY nifedipine ER 60 mg PO DAILY pantoprazole 40 mg PO DAILY 30 days warfarin 5 mg See Protocol PO DAILY Do you need a note to return to daycare/school/sports/work: No HPI salas HPI Details THIS 67 YEARS 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 HE HAD RIGHT KNEE REPLACEMENT, UNFORTUNATELY GOT INFECTED, HAD A TEMPORARY HARDWARE, AND WAS ON IV ANTIBIOTICS FOR ABOUT 6 WEEKS, AT [facility]. AFTER THE INFECTION CLEARED HE DID HAVE THE FINAL KNEE REPLACEMENT, AFTER WHICH HE HAS BEEN AT HOME . WHILE INITIALLY AT THE HOSPITAL AND AT REHAB PLACE HE DID NOT USE CPAP. AFTER COMING HOME, AGAIN FOR A FEW WEEKS HE DID NOT USE THE CPAP. NOW HE HAS BEEN USING IT BUT ONLY OFF AND ON. THE COMPLIANCE REPORT THAT WE HAVE DOWNLOADED SHOWS THAT HE HAS NOT BEEN USING. THE PATIENT CLAIMS THAT HE HAS USED IT AT LEAST FOR HALF OF THE NIGHTS, BUT HE HAS A NEW SCHOOL INSPECTOR AT TO CONNECTION WHICH MAY NOT BE TRANSMITTING THE SIGNALS FROM THE MACHINE. HE SAY IS THAT HE HAS BEEN SLEEPING FAIRLY WELL. DUE TO BEING IN THE HOSPITAL AND REHAB HE HAS NOT BEEN ABLE TO LOSE [facility]CH WEIGHT [facility] Medical History Internal derangement of right knee Environmental allergies SALAS on CPAP Multiple lacunar infarcts Transient alteration of awareness Routine medical exam History of TIA (transient ischemic attack) On beta miguel at home History of GI bleed Chronic right heart failure Nocturnal hypoxemia SALAS (obstructive sleep apnea) Chronic heart failure with preserved ejection fraction (HFpEF) Essential hypertension Obesity (BMI 30-39.9) C. difficile diarrhea Shoulder injury Lumbar spondylosis Chronic diarrhea History of alcoholism Idiopathic peripheral neuropathy Morbid obesity Pre-diabetes Diarrhea Arthritis Back pain History of Ygysr-Sogcskqrb-Qesjh (WPW) syndrome Gout Hiatal hernia History of esophageal varices GERD (gastroesophageal reflux disease) Ascending aorta dilation HTN (hypertension) Surgical History S/P PICC central line placement Hx of total knee replacement H/O cardiac radiofrequency ablation History of esophagogastroduodenoscopy (EGD) History of colonoscopy Family History Father Diabetes mellitus Social History Household Members: Significant Other and Family Household Members Other:: BROTHER Housing: House Housing Other:: lives with s/o and brother Are you a primary laboratory animal care veterinarian to a significant other at home: No Do you presently have visiting nurse or other home services: No Alcohol intake: former Year quit: 1998 Patient Tobacco Use Status: Never used Tobacco e-Cigarette/Vaping Use: Never Used Second Hand Smoke Exposure: Yes Advance Directives Date on File: 05/03/20 service: No Current occupational status: retired 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 Current occupational exposures/hazards: Yes Cognitive needs: No Hearing needs: No Vision needs: Yes Review of Systems Const All systems reviewed & are unremarkable except as noted in HPI and below Eyes Reports no additional complaints ENT Reports no additional complaints Card Denies chest pain, Denies irregular heart rhythm and Denies leg edema Resp Reports no additional complaints, Denies cough and Denies wheezing GI Reports constipation and Reports GI cramping (OFF AND ON) Reports no additional complaints Musc Reports back pain and Reports arthralgias (POST KNEE SURGERY, STILL WALKING WITH A WALKER.) Skin/Breast Reports system reviewed and no additional complaints, except as documented Neuro Reports no additional complaints Psych Reports no additional complaints Aller/Immun Denies wheezing Physical Exam Vital Signs: Last Vital Signs Pulse 72 12/03/22 13:58 BP 98/60 12/03/22 13:58 Pulse Ox 94 12/03/22 13:58 Oxygen Delivery Method Room Air 12/03/22 13:58 BMI result Body Mass Index 34.7 Const General: comfortable, no acute distress, alert and awake Orientation/consciousness: patient oriented x3 HEENT Head: Yes normal to inspection General nose exam: No nasal polyps present and No nasal discharge present Face and sinus: Yes sinuses nontender Mouth: oropharynx abnormals (NARROW AND CROWDED, MALLAMPATI CLASS 4) Throat: Yes posterior oropharynx normal Eyes General: appearance normal, both eyes and all related structures Neck Neck: Yes normal visual inspection, Yes no lymphadenopathy, Yes trachea midline and Yes no JVD Thyroid: Thyroid normal Chest Chest palpation & inspection: normal inspection of the chest, normal palpation of entire chest wall and no tenderness Resp Effort & Inspection: normal respiratory effort Auscultation: clear to auscultation bilaterally, no crackles and no wheezes Cardio Palpation: normal PMI Rate: regular rate Rhythm: regular rhythm Heart sounds: no gallops and no murmurs GI Palpation (GI): Soft to palpation, nontender, No hepatosplenomegaly present and no masses Auscultation: normal bowel sounds Back/Spine/Pelvis Thoracic/Lumbar Spine: thoracic and lumbar spine normal to inspection Skin General skin exam: no rashes or lesions noted Neuro General: patient oriented x3 and no focal motor deficits Cranial nerves: Yes CN's II-XII intact bilaterally Extrem Other: S/P RIGHT KNEE REPLACEMENT. SCAR IN ANTERIOR ASPECT WHICH IS WELL HEALED General: Yes normal to inspection, Yes no clubbing, cyanosis or edema and Yes no calf tenderness Psych Appearance: grossly normal and well kempt Speech and movement: Normal speech and movement present Assessment & Plan Assessment & Plan (1) SALAS (obstructive sleep apnea): Comment: MILD TO MODERATE DEGREE OF OBSTRUCTIVE SLEEP APNEA. PATIENT HAS BEEN ON THE CPAP AND WAS VERY COMPLIANT MOST OF THE TIME, EXCEPT WHEN HE IS TRAVELING OF OR ON SOME NIGHTS WHEN HE IS WORKING. DURING THE PAST FEW MONTHS, UNDERGOING RIGHT KNEE REPLACEMENT AND BEING AT REHAB PLACE HE WAS NOT USING THE CPAP. NOW THAT HE IS HOME, HE HAS STARTED USING THE CPAP BUT STILL ONLY HALF OF THE NIGHTS. DISCUSSED AND ENCOURAGED TO USE IT EVERY NIGHT. WE WILL BE DISCUSSING WITH THE DME SUPPLIER TO SEE IF WE CAN DOWNLOAD THE COMPLIANCE DATA. Code(s): G47.33 - Obstructive sleep apnea (adult) (pediatric) (2) Obesity (BMI 30-39.9): Comment: EVEN THOUGH HE HAS LOST ABOUT 30 LB OF WEIGHT HE STILL REMAINS GROSSLY OBESE. HE HAS A VERY SHORT AND OBESE NECK WITH NECK SIZE OF 18 IN. CROWDED OROPHARYNX WITH MALLAMPATI CLASS 4 . PATIENT ADVISED TO MODIFY HIS DIET AND ACTIVITY LEVEL SO THAT HE CAN CONTINUE TO REDUCE WEIGHT. Code(s): E66.9 - Obesity, unspecified (3) Nocturnal hypoxemia: Comment: PATIENT DID HAVE EVIDENCE OF NOCTURNAL. HYPOXEMIA ON HIS SLEEP STUDY THEN HE STARTED USING THE CPAP, REGULARLY AND IT WAS EXPECTED THAT THE NOCTURNAL HYPOXEMIA WOULD RESOLVE. HE DOES NOT HAVE OXYGEN AT HOME NOW WHEN HE STARTS USING THE CPAP REGULARLY, WE MAY DO OVERNIGHT OXIMETRY RECORDING TO MAKE SURE THAT THERE IS NO RESIDUAL HYPOXEMIA. Code(s): G47.34 - Idiopathic sleep related nonobstructive alveolar hypoventilation Coding Level of Care Code Est Pt Level 3 (45543) Diagnoses SALAS (obstructive sleep apnea) G47.33 Obesity (BMI 30-39.9) E66.9 Nocturnal hypoxemia G47.34
== END 2022-12-03 14:23 | disposition home or self-care (01) ==
PROVIDERS: PCP Internal Medicine; Visit Provider Internal Medicine
DX: G47.33 Obstructive sleep apnea (adult) (pediatric) (principal); E66.9 Obesity, unspecified; G47.34 Idiopathic sleep related nonobstructive alveolar hypoventilation
CPT/HCPCS: 99213

== ENCOUNTER → 2022-12-03 13:55 | Outpatient (BNVA) | payer MEDICARE, BC, SELFPAY | PROVIDERS: PCP Internal Medicine; Visit Provider Internal Medicine | DX: G47.33 Obstructive sleep apnea (adult) (pediatric) (principal); G47.34 Idiopathic sleep related nonobstructive alveolar hypoventilation; E66.9 Obesity, unspecified; Z68.34 Body mass index [BMI] 34.0-34.9, adult | CPT/HCPCS: 99212 ==

== ENCOUNTER 2022-12-05 14:00 | Outpatient (RCR) | payer MEDICARE, BC, SELFPAY ==
--- NOTE | 2022-08-15 14:49 | MHC.PT.EP ---
[facility] [place] Office [place] Office [place] Office [address] Beatriz Peterson [address] [phone] F: [phone] F: [phone] F: [phone] F: [phone] Physical Therapy Plan of Care Date of Evaluation: Date of Surgery: 07/31/22 Diagnosis: S/P Rt TKA REVISION 07/31/22 s/p revision 04/2022 with abx spacer (spinal and block) - had 6 weeks vanco postop, no longer has PICC AND WENT TO REHAB x APPROX 6 WKS s/p initial TKA 03/2021 The Pt was seen (08/07/22) for a post-op dressing change by RACHEAL Love and returns 08/08/22 for a wound check. He experienced tightness in his knee 08/07/22 and was worried something was wrong, such as a blood clot. He had a blood clot (08/05/22) following his revision surgery Assessment: 67 YO MALE REF TO PT S/P Rt TKA REVISION ON 07/31/22. OF IMPORTANCE, THE Pt'S ORIGINAL Rt TKA WAS IN 03/2021 AND HE UNDERWENT A Rt TKA REVISION IN 04/2022 -> SPACER W ANTIOBIOTICS x 6 WKS -> RECENT Rt TKA REVISION 07/31/22. 08/05/22 THE Pt HAD (+) DVT Rt right superficial femoral, popliteal and posterior tibial veins. HE RESIDES W HIS BROTHER AND HIS GIRLFRIEND IN A 1 LEVEL HOME AND IS CURRENTLY AMB W A W/WALKER . OBJECTIVE FINDINGS: LIMITED AROM Rt KNEE, TIGHT PSOAS MM PERLA AND DECR ANKLE DF PERLA; DECR STRENGTH IN PROX / LUMBOPELVIC AND Rt LE, POST-OP PAIN IN RIGHT KNEE ,AND HEALING ANT Rt KNEE INCISION. FUNCTIONALLY, Pt IS AMB W A W/WALKER WITH COMPENSATORY GAIT, MODIFIED STAIR MGMT, DECR STANDING, SLEEPING, AND DECR MONE TO ADLs. Pt IS MOTIVATED AND IS A GOOD PT CANDIDATE TO GUIDE HIM IN HIS POST-OP TKR COURSE, ADDRESSING THE ABOVE FINDINGS, PAIN MGMT, OPTIMAL HEALING, AND MAXIMIZING FUNCTIONAL INDEPENDENCE. Frequency and Duration: The patient will be seen 2 x WK x 10 WKS Short Term Goals: *Pt'S RIGHT KNEE PAIN DECR TO 2-3 *Pt INCREASE Rt KNEE ROM -> 0* EXTEN AND PROGRESSIVELY TO 120* FLEX *INCR FLEXIB IN PSOAS/ CALF MM TO IMPROVE EFFICIENCY OF GAIT ON LEVEL AND STAIRS *REDUCE Rt LE EDEMA AND MONITOR/ ADDRESS SCAR MOB NEEDED Fci Goals: Pt INDEP W HEP PROGRESSION AND SELF-SX MGMT STRATEGIES IN 10 WKS Pt RESUME REG ADLs EVIDENT W IMPROVED LEFI SCORE IN 10 WKS Pt INCR LE STRENGTH BY 1 GRADE IN 10 WKS *Pt DEMON EFFICIENT GAIT MECH ON LEVEL GROUND AND STAIRS Treatment Plan: Modalities to reduce pain, spasms and effusion. Manual therapy to restore motion and function. Therapeutic exercise to improve strength and flexibility. Neuromuscular re-education for posture and balance. Therapeutic activities to return to functional activities of daily living. Electronically signed by: TAMAR AGUILERA,PT Please sign and return to therapist. Thank you for your referral.
--- NOTE | 2022-12-05 14:50 | MHC.PT.DC ---
[facility] [place] Office [place] [facility] [place] [facility] [address] Beatriz Peterson [address] [phone] F: [phone] F: [phone] F: [phone] F: [phone] Physical Therapy Discharge Report Diagnosis: S/P Rt TKA REVISION 07/31/22 s/p revision 04/2022 with abx spacer (spinal and block) - had 6 weeks vanco postop, no longer has PICC AND WENT TO REHAB x APPROX 6 WKS s/p initial TKA 03/2021 The Pt was seen (08/07/22) for a post-op dressing change by RACHEAL Love and returns 08/08/22 for a wound check. He experienced tightness in his knee 08/07/22 and was worried something was wrong, such as a blood clot. He had a blood clot (08/05/22) following his revision surgery Date of Surgery: 07/31/22 Date of Evaluation: 08/15/22 Date of Discharge: 12/05/22 Treatments to Date: 29 Cancellations to Date: 0 No Shows to Date: 0 Discharge Status: Improved Function Independent with HEP Discharge Summary: 12/05/2022: Overall pt has made gains in PT since start of care considering the complexity of his case. He is stronger and his endurance is better. He continues to peña fatigue that comes on frequently but he notes this could be attributed to his anemia that he is working on managing. He continues with requiring his cane for gait and still has some antalgia. He recently appears to have reached a plateau with his progress and therefore it is no longer appropriate to continue with skilled PT. 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 He is planning to attend the [facility] upon d/c which I encouraged. Electronically signed by: Shannon Mata, PT, DPT, ATC Please sign and return to therapist. Thank you for your referral.
== END 2022-12-05 14:51 | disposition home or self-care (01) ==
LOC: HO.PTCHIC 14:00
PROVIDERS: PCP Internal Medicine; Visit Provider Physician Assistant
DX: Z96.651 Presence of right artificial knee joint (principal)
CPT/HCPCS: 85610; 97014; 97110; 97112; 97140; 97162; 97530; 99211

== ENCOUNTER 2022-12-13 13:34 | Outpatient (AMB) | payer MEDICARE, BC, SELFPAY ==
--- NOTE | 2022-12-13 13:47 | MHC.OFFVISCO ---
Intake Intake Visit Reasons: Anticoagulation Allergies lisinopril [LISINOPRIL] Allergy (Severe, Verified 12/13/22 13:38) TONGUE SWELLING, CONFUSION environmental allergies Allergy (Unknown, Verified 12/13/22 13:38) Unknown Medication List - Last Reconciled 12/13/22 by Taisha Rojas RN acetaminophen 650 mg PO BID allopurinol 300 mg PO DAILY ascorbic acid (vitamin C) (Vitamin C) 1 g PO DAILY atorvastatin 40 mg PO BEDTIME brimonidine 0.2% 1 drp ophthalmic-Left BID diphenhydramine HCl (Benadryl) 25 mg PO BEDTIME PRN dorzolamide-timolol 22.3-6.8 mg/mL 1 drp ophthalmic (eye) BEDTIME ferrous sulfate 325 mg PO DAILY furosemide (Lasix) 20 mg PO DAILY gabapentin 600 mg (2 x 300 mg) PO BEDTIME 90 days latanoprost 0.005% 1 drp ophthalmic (eye) BEDTIME metoprolol succinate ER 200 mg PO DAILY multivitamin 1 tab PO DAILY nifedipine ER 60 mg PO DAILY pantoprazole 40 mg PO DAILY 30 days warfarin 5 mg PO DAILY Nursing Note INR: 2.4 in therapeutic range Medications and supplements reviewed No changes in health, diet, medications, or supplements, Denies any signs and symptoms of bleeding or bruising or clotting. Bleeding, bruising, clotting discussed Nutritional guidance given Dose: 5MG X 2 DAYS/ 7.5MG X 5 DAYS F/U INR: 12/30/22 Patient verbalizes understanding of instructions given Anti-Coag Initial Assessment Social Hx Patient Tobacco Use Status: Never used Tobacco alcohol intake: former Alcohol intake frequency: does not drink Cardiovascular Hx: HTN, CAD and CHF Lung Disease HX: DVT/PE and Other (VY- cpap) Endocrine Hx: Diabetes (pre diabetic) Musculoskeletal Hx: Arthritis and Gout Blood Disorder Hx: Anemia and Hyperlipidemia GI Hx: Bleeding (GI, rectal) (varices), Diverticulosis and Other (IBS with diarrhea) Neurological Hx: Stroke/TIA Cancer HX: No Psych. Illness/Depression: No Coding Level of Care Code Est Patient Level 1 Diagnoses Current use of anticoagulant therapy Z79.01 Assessment & Plan Assessment & Plan (1) Current use of anticoagulant therapy: Code(s): Z79.01 - halfway (current) use of anticoagulants Category: Medical
== END 2022-12-13 13:52 | disposition home or self-care (01) ==
LOC: HO.ACS 13:34
PROVIDERS: PCP Internal Medicine; Visit Provider Internal Medicine
DX: Z79.01 Long term (current) use of anticoagulants (principal)

== ENCOUNTER → 2022-12-13 13:34 | Outpatient (BNVA) | payer MEDICARE, BC, SELFPAY | PROVIDERS: PCP Internal Medicine; Visit Provider Internal Medicine | DX: I82.409 Acute embolism and thrombosis of unspecified deep veins of unspecified lower extremity (principal); Z79.01 Long term (current) use of anticoagulants; Z51.81 Encounter for therapeutic drug level monitoring | CPT/HCPCS: 85610; 99211 ==

== ENCOUNTER 2022-12-30 13:32 | Outpatient (AMB) | payer MEDICARE, BC, SELFPAY ==
[2022-12-30 13:48] LABS: Prothrombin Time Whole Bld POC 23.2 sec (11.1-13.5); ~PT, ~INR - Anti Coag Clinic 1.9 (0.9-1.1)
--- NOTE | 2022-12-30 13:51 | MHC.OFFVISCO ---
Intake Intake Visit Reasons: Anticoagulation Allergies lisinopril [LISINOPRIL] Allergy (Severe, Verified 12/30/22 13:43) TONGUE SWELLING, CONFUSION environmental allergies Allergy (Unknown, Verified 12/30/22 13:43) Unknown Medication List - Last Reconciled 12/30/22 by Fadumo De Jesus, RN acetaminophen 650 mg PO BID allopurinol 300 mg PO DAILY ascorbic acid (vitamin C) (Vitamin C) 1 g PO DAILY atorvastatin 40 mg PO BEDTIME brimonidine 0.2% 1 drp ophthalmic-Left BID diphenhydramine HCl (Benadryl) 25 mg PO BEDTIME PRN dorzolamide-timolol 22.3-6.8 mg/mL 1 drp ophthalmic (eye) BEDTIME ferrous sulfate 325 mg PO DAILY furosemide (Lasix) 20 mg PO DAILY gabapentin 600 mg (2 x 300 mg) PO BEDTIME 90 days latanoprost 0.005% 1 drp ophthalmic (eye) BEDTIME metoprolol succinate ER 200 mg PO DAILY multivitamin 1 tab PO DAILY nifedipine ER 60 mg PO DAILY pantoprazole 40 mg PO DAILY 30 days warfarin 10 mg See Protocol PO DAILY 90 days Nursing Note Amb to ACS using cane feeling well, sts he is going for vaccines today, Covid, Flu and pneumonia, sts he will be going for RSV vaccine next week Medications and supplements reviewed No oother changes in health, diet, medications, or supplements Denies any unusual signs and symptoms of bruising, bleeding Denies any new Chest pain, SOB, or clotting INR: 1.9 just below therapeutic range (2.0-2.5) Nutritional guidance given: no greens today or tomorrow then balance greens and reds in diet Dose: flip dosing today and tomorrow as vaccines can make INR raise will take 7.5mg today then 5mg tomorrow then resumume usual dosing on usual days; 5mg x 2 days (mon and thurs) and 7.5mg all other days F/U INR: 2 weeks Patient verbalizes understanding of instructions given with accurate read back/ teach back of dosing Anti-Coag Initial Assessment Social Hx Patient Tobacco Use Status: Never used Tobacco alcohol intake: former Alcohol intake frequency: does not drink Cardiovascular Hx: HTN, CAD and CHF Lung Disease HX: DVT/PE and Other (VY- cpap) Endocrine Hx: Diabetes (pre diabetic) Musculoskeletal Hx: Arthritis and Gout Blood Disorder Hx: Anemia and Hyperlipidemia GI Hx: Bleeding (GI, rectal) (varices), Diverticulosis and Other (IBS with diarrhea) Neurological Hx: Stroke/TIA Cancer HX: No Psych. Illness/Depression: No Coding Level of Care Code Est Patient Level 1 Diagnoses Current use of anticoagulant therapy Z79.01 Time Spent (min) 15 Assessment & Plan Assessment & Plan (1) Current use of anticoagulant therapy: Code(s): Z79.01 - care home (current) use of anticoagulants Category: Medical
== END 2022-12-30 14:00 | disposition home or self-care (01) ==
LOC: HO.ACS 13:32
PROVIDERS: PCP Internal Medicine; Visit Provider Internal Medicine
DX: Z79.01 Long term (current) use of anticoagulants (principal)

== ENCOUNTER → 2022-12-30 13:32 | Outpatient (BNVA) | payer MEDICARE, BC, SELFPAY | PROVIDERS: PCP Internal Medicine; Visit Provider Internal Medicine | DX: I82.409 Acute embolism and thrombosis of unspecified deep veins of unspecified lower extremity (principal); Z79.01 Long term (current) use of anticoagulants; Z51.81 Encounter for therapeutic drug level monitoring | CPT/HCPCS: 85610; 99211 ==

== ENCOUNTER 2023-01-13 13:32 | Outpatient (AMB) | payer MEDICARE, BC, SELFPAY ==
--- NOTE | 2023-01-13 14:01 | MHC.OFFVISCO ---
Intake Intake Visit Reasons: Anticoagulation Allergies lisinopril [LISINOPRIL] Allergy (Severe, Verified 12/30/22 13:43) TONGUE SWELLING, CONFUSION environmental allergies Allergy (Unknown, Verified 12/30/22 13:43) Unknown Nursing Note INR: 2.0 in therapeutic range Medications and supplements reviewed No changes in health, diet, medications, or supplements, Denies any signs and symptoms of bleeding or bruising or clotting. Bleeding, bruising, clotting discussed Nutritional guidance given - EAT A MIX OF FRUITS AND VEGETABLES Dose: 5MG X 2 DAYS / 7.5MG X 5 DAYS F/U INR: 02/06/23 Patient verbalizes understanding of instructions given Anti-Coag Initial Assessment Social Hx Patient Tobacco Use Status: Never used Tobacco alcohol intake: former Alcohol intake frequency: does not drink Cardiovascular Hx: HTN, CAD and CHF Lung Disease HX: DVT/PE and Other (VY- cpap) Endocrine Hx: Diabetes (pre diabetic) Musculoskeletal Hx: Arthritis and Gout Blood Disorder Hx: Anemia and Hyperlipidemia GI Hx: Bleeding (GI, rectal) (varices), Diverticulosis and Other (IBS with diarrhea) Neurological Hx: Stroke/TIA Cancer HX: No Psych. 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
[2023-01-13 20:37] LABS: Prothrombin Time Whole Bld POC 23.8 sec (11.1-13.5)
== END 2023-01-13 14:04 | disposition home or self-care (01) ==
LOC: HO.ACS 13:32
PROVIDERS: PCP Internal Medicine; Visit Provider Internal Medicine
DX: Z79.01 Long term (current) use of anticoagulants (principal)

== ENCOUNTER → 2023-01-13 13:32 | Outpatient (BNVA) | payer MEDICARE, BC, SELFPAY | PROVIDERS: PCP Internal Medicine; Visit Provider Internal Medicine | DX: I82.409 Acute embolism and thrombosis of unspecified deep veins of unspecified lower extremity (principal); Z51.81 Encounter for therapeutic drug level monitoring; Z79.01 Long term (current) use of anticoagulants | CPT/HCPCS: 85610; 99211 ==

== ENCOUNTER 2023-01-28 09:26 | Outpatient (AMB) | payer MEDICARE, BC, SELFPAY ==
[2023-01-28 09:34] VITALS: BP 128/60; PULSE 89; O2SAT 93; BMI 36.0
--- NOTE | 2023-01-28 09:34 | A.OFFPC_ITS ---
Vital Signs 01/28/23 09:34 Height 5 ft 9 in Weight 244 lb 2 oz BMI 36.0 BP 128/60 Blood Pressure Location Rt brachial Position Sitting Pulse 89 Pulse Source Pulse Oximeter Pulse Oximetry (%) 93 Oxygen Delivery Method Room Air Intake Visit Reasons: 6m follow up Allergies lisinopril [LISINOPRIL] Allergy (Severe, Verified 01/28/23 09:36) TONGUE SWELLING, CONFUSION environmental allergies Allergy (Unknown, Verified 01/28/23 09:36) Unknown Medication List - Last Reconciled 01/28/23 by Conchita Chavis MD acetaminophen 650 mg PO BID allopurinol 300 mg PO DAILY ascorbic acid (vitamin C) (Vitamin C) 1 g PO DAILY atorvastatin 40 mg PO BEDTIME brimonidine 0.2% 1 drp ophthalmic-Left BID diphenhydramine HCl (Benadryl) 25 mg PO BEDTIME PRN dorzolamide-timolol 22.3-6.8 mg/mL 1 drp ophthalmic (eye) BEDTIME ferrous sulfate 325 mg PO DAILY furosemide (Lasix) 20 mg PO DAILY gabapentin 600 mg (2 x 300 mg) PO BEDTIME 90 days latanoprost 0.005% 1 drp ophthalmic (eye) BEDTIME metoprolol succinate ER 200 mg PO DAILY multivitamin 1 tab PO DAILY nifedipine ER 60 mg PO DAILY pantoprazole 40 mg PO DAILY 30 days warfarin 10 mg See Protocol PO DAILY 90 days Tobacco use date assessed: 01/28/23 Fall risk assessment: No Falls in past year Last assessed Fall Risk: 01/28/23 Dental Screening Dental Screen Date: 01/28/23 Did you have a dental visit in the last 12 months?: No Did you have a dental problem in the last 6 months where you did not have access to dental care?: No Was dental information given to patient?: Patient has dentist HPI 6m follow up HPI Details Patient is a 67 year old gentleman came in today for his regular follow-up appointment His H&H has improved, he is on iron supplement and is established with Hematology Only medications from PCP office are allopurinol, for gout, indomethacin as needed for flare-up of gout and gabapentin for peripheral neuropathy pain. Patient is taking 2 capsules of 300 mg at night and requesting 1 more in the morning which I have added today. Patient is seeing cardiology for ascending aortic aneurysm last CTA 2021, showed aortic size of 4.7 cm x 4.7 cm. No change from 2020. Obstructive sleep apnea: Patient is using CPAP machine regularly Blood pressure management through cardiology office Patient also have a chronic right heart failure and coronary artery calcifications seen on CAT scan He is taking atorvastatin 40 mg for lipid control, and metoprolol 200 mg through Cardiology along with nifedipine 90 mg for blood pressure Patient is also seeing Gastroenterology for IBS and chronic GERD and is taking pantoprazole 40 mg which he tells me that he is now only taking as needed. BMI is elevated at 36.1 patient is having difficulty losing weight Follow-up 3 months Family history, surgical history, social history reviewed [facility] Medical History Internal derangement of right knee Environmental allergies VY on CPAP Multiple lacunar infarcts Transient alteration of awareness Routine medical exam History of TIA (transient ischemic attack) On beta miguel at home History of GI bleed Chronic right heart failure Nocturnal hypoxemia VY (obstructive sleep apnea) Chronic heart failure with preserved ejection fraction (HFpEF) Essential hypertension Obesity (BMI 30-39.9) C. difficile diarrhea Shoulder injury Lumbar spondylosis Chronic diarrhea History of alcoholism Idiopathic peripheral neuropathy Morbid obesity Pre-diabetes Diarrhea Arthritis Back pain History of Yupza-Wxyhwlpoz-Twoyk (WPW) syndrome Gout Hiatal hernia History of esophageal varices GERD (gastroesophageal reflux disease) Ascending aorta dilation HTN (hypertension) Surgical History S/P PICC central line placement Hx of total knee replacement H/O cardiac radiofrequency ablation History of esophagogastroduodenoscopy (EGD) History of colonoscopy Family History Father Diabetes mellitus Household Members: Significant Other and Family Household Members Other:: BROTHER Housing: House Housing Other:: lives with s/o and brother Are you a primary health care social worker to a significant other at home: No Do you presently have visiting nurse or other home services: No Alcohol intake: former Year quit: 1998 Patient Tobacco Use Status: Never used Tobacco e-Cigarette/Vaping Use: Never Used Second Hand Smoke Exposure: Yes Advance Directives Date on File: 05/03/20 service: No Current occupational status: retired 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 1. Little interest or pleasure in doing things: several days 2. Feeling down, depressed, or hopeless: not at all 3. Trouble falling or staying asleep, or sleeping too much: several days 4. Feeling tired or having little energy: more than half the days 5. Poor appetite or overeating: not at all 6. Feeling bad about yourself - or that you are a failure or have let yourself or your family down: not at all 7. Trouble concentrating on things, such as reading the newspaper or watching television: not at all 8. Moving or speaking so slowly that other people could have noticed. Or the opposite - being so fidgety or restless that you have been moving around a lot more than usual: several days 9. Thoughts that you would be better off or of hurting yourself in some way: not at all Total score: 5 Depression Screening Interpretation: Negative Depression Screening Done: Yes 36078 - PHQ-9 Billing: Yes Source: Developed by Drs. Cornell Toth, Odalys Ponce, Matt Hickman and colleagues, with an educational otoniel from [employer]. Thrive Questionnaire Date Thrive assessed: 11/21/20 AUDIT C Alcohol Use Questionnaire (AUDIT-C) 1. How often do you have a drink containing alcohol?: Never 3. How often do you have six or more drinks on one occasion?: Never Total Score: 0 Score Reviewed/Action Taken: Yes JEANNETTE-7 AMB Questionnaire JEANNETTE-7 Date JEANNETTE - 7 assessed: 01/28/23 Feeling nervous, anxious, or on edge: 0 = Not at all Not being able to stop or control worryin = Not at all Worrying too much about different things: 0 = Not at all Trouble relaxin = Not at all Being so restless that it is hard to sit still: 0 = Not at all Becoming easily annoyed or irritable: 0 = Not at all Feeling afraid as if something awful might happen: 0 = Not at all Total JEANNETTE-7 score (0-4 normal; 5-9 mild; 10-14 moderate; 15-21 severe): 0 Source: Developed by Drs. Cornell Toth, Odalys Ponce, Matt Hickman and colleagues, with an educational otoniel from [employer]. JEANNETTE-7 Assessment Billing JEANNETTE-7 Assessment Tool: JEANNETTE-7 Assessment 64327 Review of Systems Const Denies chills and Denies fever(s) ENT Denies epistaxis and Denies nasal discharge Card Denies chest pain Resp Denies chest congestion, Denies cough and Denies hemoptysis GI Denies diarrhea and Denies nausea Skin/Breast Denies rash Neuro Reports no additional complaints Psych Reports no additional complaints Endo Reports no additional complaints Physical exam (Primary Care) Vital Signs: Last Vital Signs Pulse 89 01/28/23 09:34 BP 128/60 01/28/23 09:34 Pulse Ox 93 01/28/23 09:34 Oxygen Delivery Method Room Air 01/28/23 09:34 BMI result Body Mass Index 36.0 Tobacco/Smoking Status: Tobacco use Status Tobacco use date assessed 01/28/23 01/28/23 09:37 Patient Tobacco Use Status Never used Tobacco 01/28/23 09:37 e-Cigarette/Vaping Use Never Used 01/28/23 09:37 PHQ-9: PHQ-9 Score PHQ-9: Total score 5 01/28/23 11:32 Depression Screening Interpretation: Negative Thrive Assessment: Date of Thrive Assessment Date Thrive assessed 11/21/20 01/28/23 09:37 Const General: cooperative, comfortable and no acute distress Orientation/consciousness: patient oriented x3 HENKS Head: Yes normocephalic Eyes General: appearance normal, both eyes and all related structures Neck Neck: Yes supple Resp Effort & Inspection: normal respiratory effort, no cough and no stridor Cardio Rhythm: regular rhythm Heart sounds: S1 normal heart sound present and S2 normal heart sound present Skin General skin exam: turgor normal Neuro General: patient oriented x3, tone normal and moves all extremities Assessment and Plan Assessment & Plan (1) Idiopathic peripheral neuropathy: Code(s): G60.9 - Hereditary and idiopathic neuropathy, unspecified (2) Essential hypertension: Code(s): I10 - Essential (primary) hypertension (3) Obesity (BMI 30-39.9): Code(s): E66.9 - Obesity, unspecified (4) Ascending aorta dilation: Code(s): I77.810 - Thoracic aortic ectasia (5) Chronic right heart failure: Code(s): I50.812 - Chronic right heart failure (6) Gout: Code(s): M10.9 - Gout, unspecified Qualifiers: Chronicity: chronic Gout etiology: idiopathic Gout site: foot Laterality: unspecified laterality Presence of tophus: without tophus Qualified Code(s): M1A.0790 - Idiopathic chronic gout, unspecified ankle and foot, without tophus (tophi) (7) Pre-diabetes: Code(s): R73.03 - Prediabetes (8) Iron deficiency: Code(s): E61.1 - Iron deficiency (9) Irritable bowel syndrome with diarrhea: Code(s): K58.0 - Irritable bowel syndrome with diarrhea Orders: Orders Hemoglobin A1c 3 Months R73.03 - Prediabetes Complete Blood Count Auto Diff 3 Months E61.1 - Iron deficiency, E66.01 - Morbid (severe) obesity due to excess calories, G60.9 - Hereditary and idiopathic neuropathy, unspecified, I10 - Essential (primary) hypertension, I50.812 - Chronic right heart failure, I77.810 - Thoracic aortic ectasia, K58.0 - Irritable bowel syndrome with diarrhea, M10.9 - Gout, unspecified, R73.03 - Prediabetes Comprehensive Met. Panel 3 Months E61.1 - Iron deficiency, E66.01 - Morbid (severe) obesity due to excess calories, G60.9 - Hereditary and idiopathic neuropathy, unspecified, I10 - Essential (primary) hypertension, I50.812 - Chronic right heart failure, I77.810 - Thoracic aortic ectasia, K58.0 - Irritable bowel syndrome with diarrhea, M10.9 - Gout, unspecified, R73.03 - Prediabetes LDL Cholesterol Direct 3 Months E61.1 - Iron deficiency, E66.01 - Morbid (severe) obesity due to excess calories, G60.9 - Hereditary and idiopathic neuropathy, unspecified, I10 - Essential (primary) hypertension, I50.812 - Chronic right heart failure, I77.810 - Thoracic aortic ectasia, K58.0 - Irritable bowel syndrome with diarrhea, M10.9 - Gout, unspecified, R73.03 - Prediabetes Medications: Changed From gabapentin 600 mg (2 x 300 mg) PO BEDTIME 90 days 180 caps 0RF To gabapentin 300 mg PO Q8H 270 caps 0RF 90 days Coding Level of Care Code Est Pt Level 4 (48122) Diagnoses Idiopathic peripheral neuropathy G60.9 Essential hypertension I10 Obesity (BMI 30-39.9) E66.9 Ascending aorta dilation I77.810 Chronic right heart failure I50.812 Idiopathic chronic gout of foot without tophus, unspecified laterality M1A.0790 Chronicity: chronic Gout etiology: idiopathic Gout site: foot Laterality: unspecified laterality Presence of tophus: without tophus Pre-diabetes R73.03 Iron deficiency E61.1 Irritable bowel syndrome with diarrhea K58.0 Additional Codes JEANNETTE-7 Assessment Billing - JEANNETTE-7 Assessment Tool: JEANNETTE-7 Assessment 57268 ([id number])
== END 2023-01-28 10:20 | disposition home or self-care (01) ==
PROVIDERS: Visit Provider Internal Medicine
DX: G60.9 Hereditary and idiopathic neuropathy, unspecified (principal); I77.810 Thoracic aortic ectasia; I11.0 Hypertensive heart disease with heart failure; I50.812 Chronic right heart failure; E66.9 Obesity, unspecified; M1A.0790 Idiopathic chronic gout, unspecified ankle and foot, without tophus (tophi); R73.03 Prediabetes; E61.1 Iron deficiency; K58.0 Irritable bowel syndrome with diarrhea
CPT/HCPCS: 99214

== ENCOUNTER 2023-02-04 11:35 | Outpatient (REF) | payer MEDICARE, BC, SELFPAY ==
[2023-02-04 14:20] LABS: Erythrocyte Sedimentation Rate 5 MM/HR (0-15)
[2023-02-05 15:42] LABS: CRP High Sensitivity 1.2 mg/L
== END 2023-02-04 11:36 | disposition home or self-care (01) ==
LOC: HO.HMGCLDS 11:35
PROVIDERS: PCP Internal Medicine; Visit Provider Orthopaedic Surgery
DX: Z96.651 Presence of right artificial knee joint (principal)
CPT/HCPCS: 36415; 85652; 86141

== ENCOUNTER 2023-02-06 12:47 | Outpatient (REF) | payer MEDICARE, BC, SELFPAY ==
--- NOTE | ~2023-02-06 | XR_ITS ---
STUDY: Standing knees, right knee INDICATION: Knee pain COMPARISON: 10/31/2022 FINDINGS: Mild left medial knee joint right total knee replacement rest the components are stable in position without evidence of loosening or failure. Alignment remains satisfactory. Fragmented appearance of the right medial femoral condyle and calcifications adjacent to the right medial tibial plateau are stable in appearance. No fracture or dislocation. Persistent right suprapatellar effusion. XR/XR knee RT 2V IMPRESSION: Stable right total knee replacement, right suprapatellar effusion and mild left medial knee joint narrowing.
--- NOTE | ~2023-02-06 | XR_ITS ---
STUDY: Standing knees, right knee INDICATION: Knee pain COMPARISON: 10/31/2022 FINDINGS: Mild left medial knee joint right total knee replacement rest the components are stable in position without evidence of loosening or failure. Alignment remains satisfactory. Fragmented appearance of the right medial femoral condyle and calcifications adjacent to the right medial tibial plateau are stable in appearance. No fracture or dislocation. Persistent right suprapatellar effusion. XR/XR knee standing BI IMPRESSION: Stable right total knee replacement, right suprapatellar effusion and mild left medial knee joint narrowing.
== END 2023-02-06 12:48 | disposition home or self-care (01) ==
LOC: HO.HOSX 12:47
PROVIDERS: Visit Provider Orthopaedic Surgery
DX: Z96.651 Presence of right artificial knee joint (principal); Z86.718 Personal history of other venous thrombosis and embolism; Z51.81 Encounter for therapeutic drug level monitoring; Z79.01 Long term (current) use of anticoagulants
CPT/HCPCS: 73560; 73565; 85610; 99211; 99212

== ENCOUNTER 2023-02-06 13:09 | Outpatient (AMB) | payer MEDICARE, BC, SELFPAY ==
--- NOTE | 2023-02-06 13:57 | A.OFFVIS_ITS ---
Intake Intake Visit Reasons: OV RT Knee revision TKA 07/31/22 NE Intake Note: This is a 67 year old male who presents for a follow up for a right knee revision TKA 07/31/22 with NE. He has increased pain with twisting and bending of the knee. Allergies lisinopril [LISINOPRIL] Allergy (Severe, Verified 02/06/23 14:38) TONGUE SWELLING, CONFUSION environmental allergies Allergy (Unknown, Verified 02/06/23 14:38) Unknown Medication List - Last Reconciled 02/06/23 by Fanny Arvizu RN acetaminophen 650 mg PO BID allopurinol 300 mg PO DAILY ascorbic acid (vitamin C) (Vitamin C) 1 g PO DAILY atorvastatin 40 mg PO BEDTIME brimonidine 0.2% 1 drp ophthalmic-Left BID diphenhydramine HCl (Benadryl) 25 mg PO BEDTIME PRN dorzolamide-timolol 22.3-6.8 mg/mL 1 drp ophthalmic (eye) BEDTIME ferrous sulfate 325 mg PO DAILY furosemide (Lasix) 20 mg PO DAILY gabapentin 300 mg PO Q8H 90 days latanoprost 0.005% 1 drp ophthalmic (eye) BEDTIME metoprolol succinate ER 200 mg PO DAILY multivitamin 1 tab PO DAILY nifedipine ER 60 mg PO DAILY pantoprazole 40 mg PO DAILY 30 days warfarin 10 mg See Protocol PO DAILY 90 days HPI OV RT Knee revision TKA 07/31/22 NE HPI Details Alek is a 67 year old man who presents ~6 months S/P right rTKA. He feels he continues to have stiffness and pain in his knee with activity. He says recently he felt increased pain when twisting or bending his knee and he is worried about a possible infection. It has improved over the last several days. Denies fever/chills. He has completed his course of PT and continues to walk using a cane. [facility] Medical History Internal derangement of right knee Environmental allergies VY on CPAP Multiple lacunar infarcts Transient alteration of awareness Routine medical exam History of TIA (transient ischemic attack) On beta miguel at home History of GI bleed Chronic right heart failure Nocturnal hypoxemia VY (obstructive sleep apnea) Chronic heart failure with preserved ejection fraction (HFpEF) Essential hypertension Obesity (BMI 30-39.9) C. difficile diarrhea Shoulder injury Lumbar spondylosis Chronic diarrhea History of alcoholism Idiopathic peripheral neuropathy Morbid obesity Pre-diabetes Diarrhea Arthritis Back pain History of Jgktf-Cwfcmacax-Knblz (WPW) syndrome Gout Hiatal hernia History of esophageal varices GERD (gastroesophageal reflux disease) Ascending aorta dilation HTN (hypertension) Surgical History S/P PICC central line placement Hx of total knee replacement H/O cardiac radiofrequency ablation History of esophagogastroduodenoscopy (EGD) History of colonoscopy Family History Father Diabetes mellitus Social History Household Members: Significant Other and Family Household Members Other:: BROTHER Housing: House Housing Other:: lives with s/o and brother Are you a primary medicare sales representative to a significant other at home: No Do you presently have visiting nurse or other home services: No Alcohol intake: former Year quit: 1998 Comment: aware of trip hazards Patient Tobacco Use Status: Never used Tobacco e-Cigarette/Vaping Use: Never Used Second Hand Smoke Exposure: Yes Advance Directives Date on File: 05/03/20 service: No Current occupational status: retired 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 Current occupational exposures/hazards: Yes Cognitive needs: No Hearing needs: No Vision needs: Yes Review of Systems Const All systems reviewed & are unremarkable except as noted in HPI and below Physical Exam Const General: no acute distress, alert and awake Orientation/consciousness: patient oriented x3 HEENT Head: Yes normocephalic and Yes atraumatic Eyes EOM: EOMs intact bilaterally Resp Effort & Inspection: normal respiratory effort and able to speak in complete sentences Cardio Jugular venous distension: no JVD Skin General skin exam: turgor normal Rashes: no rashes Neuro General: patient oriented x3 Extrem Other: Right Knee: Well-healed incision 0-120 degrees ROM No effusion No warmth Walking comfortably with cane Psych Appearance: grossly normal Affect: normal affect Attitude: cooperative Results Reviewed Results Reviewed: I personally reviewed relevant radiographs. Right total knee arthroplasty in expected post operative position with no hardware complications or evidence of loosening ESR/CRP WNL Assessment & Plan Assessment & Plan (1) Status post revision of total replacement of right knee: Code(s): Z96.651 - Presence of right artificial knee joint Plan: This is a 67 year old man S/P right rTKA, DOS: 07/31/22. He is doing well overall, with no drainage or erythema, though he does have some stiffness, weakness, and increased pain with twisting activities. Labs are not concerning for infection nor is physical exam. Continue activity as tolerated. Orders: Orders XR knee RT 2V 02/06/23 M25.569 - Pain in unspecified knee CRP High Sensitivity 02/04/23 Z96.651 - Presence of right artificial knee joint Erythrocyte Sedimentation Rate 02/04/23 Z96.651 - Presence of right artificial knee joint XR knee standing BI 02/06/23 M25.569 - Pain in unspecified knee Coding Level of Care Code Est Pt Level 3 (28421) Diagnoses Status post revision of total replacement of right knee Z96.651
== END 2023-02-06 14:15 | disposition home or self-care (01) ==
PROVIDERS: PCP Internal Medicine; Visit Provider Orthopaedic Surgery
DX: Z47.89 Encounter for other orthopedic aftercare (principal); Z96.651 Presence of right artificial knee joint
CPT/HCPCS: 99213

== ENCOUNTER 2023-02-06 14:37 | Outpatient (AMB) | payer MEDICARE, BC, SELFPAY ==
[2023-02-06 14:43] LABS: Prothrombin Time Whole Bld POC 34.9 sec (11.1-13.5); ~PT, ~INR - Anti Coag Clinic 2.9 (0.9-1.1)
--- NOTE | 2023-02-06 14:48 | MHC.OFFVISCO ---
Intake Intake Visit Reasons: Anticoagulation Allergies lisinopril [LISINOPRIL] Allergy (Severe, Verified 02/06/23 14:38) TONGUE SWELLING, CONFUSION environmental allergies Allergy (Unknown, Verified 02/06/23 14:38) Unknown Medication List - Last Reconciled 02/06/23 by Laverne Mendoza RN acetaminophen 650 mg PO BID allopurinol 300 mg PO DAILY ascorbic acid (vitamin C) (Vitamin C) 1 g PO DAILY atorvastatin 40 mg PO BEDTIME brimonidine 0.2% 1 drp ophthalmic-Left BID diphenhydramine HCl (Benadryl) 25 mg PO BEDTIME PRN dorzolamide-timolol 22.3-6.8 mg/mL 1 drp ophthalmic (eye) BEDTIME ferrous sulfate 325 mg PO DAILY furosemide (Lasix) 20 mg PO DAILY gabapentin 300 mg PO Q8H 90 days latanoprost 0.005% 1 drp ophthalmic (eye) BEDTIME metoprolol succinate ER 200 mg PO DAILY multivitamin 1 tab PO DAILY nifedipine ER 60 mg PO DAILY pantoprazole 40 mg PO DAILY 30 days warfarin 10 mg See Protocol PO DAILY 90 days Nursing Note NO CP,SOB,DIET/MED CHANGES,FALLS OR SX OF BLEEDING. REDUCE DOSE TODAY THEN RESUME USUAL DOSE AND FOLLOW-UP IN 4 WEEKS. GOOD UNDERSTANDING OF DOSING INSTR. TINO TODAY Anti-Coag Initial Assessment Social Hx Patient Tobacco Use Status: Never used Tobacco alcohol intake: former Alcohol intake frequency: does not drink Cardiovascular Hx: HTN, CAD and CHF Lung Disease HX: DVT/PE and Other (VY- cpap) Endocrine Hx: Diabetes (pre diabetic) Musculoskeletal Hx: Arthritis and Gout Blood Disorder Hx: Anemia and Hyperlipidemia GI Hx: Bleeding (GI, rectal) (varices), Diverticulosis and Other (IBS with diarrhea) Neurological Hx: Stroke/TIA Cancer HX: No Psych. Illness/Depression: No Coding Level of Care Code Est Patient Level 1 Diagnoses Current use of anticoagulant therapy Z79.01 Assessment & Plan Assessment & Plan (1) Current use of anticoagulant therapy: Code(s): Z79.01 - group home (current) use of anticoagulants Category: Medical
== END 2023-02-06 14:51 | disposition home or self-care (01) ==
LOC: HO.ACS 14:37
PROVIDERS: PCP Internal Medicine; Visit Provider Internal Medicine
DX: Z79.01 Long term (current) use of anticoagulants (principal)

== ENCOUNTER → 2023-02-13 12:54 | Outpatient (BNVA) | payer MEDICARE, BC, SELFPAY | PROVIDERS: PCP Internal Medicine; Visit Provider Physician Assistant ==

== ENCOUNTER → 2023-02-13 12:54 | Outpatient (BNVA) | payer MEDICARE, BC, SELFPAY | PROVIDERS: PCP Internal Medicine; Visit Provider Physician Assistant ==

== ENCOUNTER 2023-02-26 12:59 | Outpatient (AMB) | payer MEDICARE, BC, SELFPAY ==
--- NOTE | 2023-02-26 13:03 | A.OFFVIS_ITS ---
Intake VS Expanded 02/26/23 13:08 BP 111/69 Blood Pressure Location Rt brachial Blood Pressure Position Sitting Pulse 62 Pulse Source Pulse Oximeter Temp 96.0 F L Temperature Source Tympanic Pulse Oximetry 92 Oxygen Delivery Method Room Air Height 5 ft 7 in Weight 238 lb 6.4 oz BMI 37.3 Body Fat % 35.5 Body Fat Mass 84.6 Fat Free Mass 153.6 Visceral Fat Rating 23.0 Body Water % 46.1 Body Water Mass 109.8 Muscle Mass/Score 146.2 Basal Metabolic Rate/Score 2,083 Intake Visit Reasons: (ov) [employer]ANDB[employer]ER [employer] MWL Allergies lisinopril [LISINOPRIL] Allergy (Severe, Verified 02/06/23 14:38) TONGUE SWELLING, CONFUSION environmental allergies Allergy (Unknown, Verified 02/06/23 14:38) Unknown Medication List - Last Reconciled 02/26/23 by RACHEAL Reyna-C acetaminophen 650 mg PO BID allopurinol 300 mg PO DAILY ascorbic acid (vitamin C) (Vitamin C) 1 g PO DAILY atorvastatin 40 mg PO BEDTIME brimonidine 0.2% 1 drp ophthalmic-Left BID diphenhydramine HCl (Benadryl) 25 mg PO BEDTIME PRN dorzolamide-timolol 22.3-6.8 mg/mL 1 drp ophthalmic (eye) BEDTIME ferrous sulfate 325 mg PO DAILY furosemide (Lasix) 20 mg PO DAILY gabapentin 300 mg PO Q8H 90 days latanoprost 0.005% 1 drp ophthalmic (eye) BEDTIME metoprolol succinate ER 200 mg PO DAILY multivitamin 1 tab PO DAILY nifedipine ER 60 mg PO DAILY pantoprazole 40 mg PO DAILY 30 days warfarin 10 mg See Protocol PO DAILY 90 days HPI HPI Comments History of Present Illness Details This is a 67 year old man who is here to start MWL program with classes. His goal is to weigh 200 lbs and maintain. He reports first being concerned about his weight for decades.. He has tried multiple methods of weight loss including changing eating habits.without permanent results. He lives with his girlfriend and his brother. He is retired He wakes at: noon bed at 2 am, bed at 12 MN - wants to change to wake up at 8am coffee 1 cup at 2 pm with stevia, sweetened creamer 8am within 1 hour - whatever he can fin d grapes this am and 1 hb egg. 12 pm- grilled cheese sandwich. water or herbal tea with stevia 5pm - protein - liver or beef (large claribel unt) vegetables 5d/ week (broccoli, corn, peas- frozen, fresh or canned). water snacks once in a while Other snacks: not during the day anymore Liquids: gingerale, OJ daily Alcohol intake: none, tobacco: none, marijuana: none Exercise: walks with a cane, very little AMNA: 1 ESS: 5 GERD: 1 QOL:100 PFSH Medical History Internal derangement of right knee Environmental allergies VY on CPAP Multiple lacunar infarcts Transient alteration of awareness Routine medical exam History of TIA (transient ischemic attack) On beta miguel at home History of GI bleed Chronic right heart failure Nocturnal hypoxemia VY (obstructive sleep apnea) Chronic heart failure with preserved ejection fraction (HFpEF) Essential hypertension Obesity (BMI 30-39.9) C. difficile diarrhea Shoulder injury Lumbar spondylosis Chronic diarrhea History of alcoholism Idiopathic peripheral neuropathy Morbid obesity Pre-diabetes Diarrhea Arthritis Back pain History of Telal-Ncfvxdsnc-Tolte (WPW) syndrome Gout Hiatal hernia History of esophageal varices GERD (gastroesophageal reflux disease) Ascending aorta dilation HTN (hypertension) Surgical History S/P PICC central line placement Hx of total knee replacement H/O cardiac radiofrequency ablation History of esophagogastroduodenoscopy (EGD) History of colonoscopy Family History Father Diabetes mellitus Social History Household Members: Significant Other and Family Household Members Other:: BROTHER Housing: House Housing Other:: lives with s/o and brother Are you a primary managed care specialist to a significant other at home: No Do you presently have visiting nurse or other home services: No Alcohol intake: former Year quit: 1998 Comment: aware of trip hazards Patient Tobacco Use Status: Never used Tobacco e-Cigarette/Vaping Use: Never Used Second Hand Smoke Exposure: Yes Advance Directives Date on File: 05/03/20 service: No Current occupational status: retired 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 1-2 (9am) hours after waking- 30 gram protein shake 1pm - 4-6 oz lean protein and 6 oz vegetable - raw 5pm - 6 oz and 6 oz - cooked vegetables 8pm- bar, yogurt or cottage cheese Exercise - 5d/ week - goal of 30 minutes per day. Sit to be Fit, LS start with 1 mile videos, Stepper at [facility] Next appt with Fanny in one month, then me 1 month later Pt will purchase mart scale and send me weekly weights. Patient is obese and is not considered stable at this time. I spent 60 minutes in total with patient reviewing/updating records, examining the patient and counseling the patient on weight management as detailed above. (2) DVT (deep venous thrombosis): Code(s): I82.409 - Acute embolism and thrombosis of unspecified deep veins of unspecified lower extremity Plan: continue warfarin (3) Acute diastolic CHF (congestive heart failure): Code(s): I50.31 - Acute diastolic (congestive) heart failure Plan: see above (4) VY (obstructive sleep apnea): Code(s): G47.33 - Obstructive sleep apnea (adult) (pediatric) Plan: CPAP nightly (5) Irritable bowel syndrome with diarrhea: Code(s): K58.0 - Irritable bowel syndrome with diarrhea Plan: will monitor (6) TIA (transient ischemic attack): Code(s): G45.9 - Transient cerebral ischemic attack, unspecified Plan: no rx (7) HTN (hypertension): Code(s): I10 - Essential (primary) hypertension Plan: no changes (8) Gout: Code(s): M10.9 - Gout, unspecified Qualifiers: Gout site: foot Gout etiology: idiopathic Chronicity: chronic Laterality: unspecified laterality Presence of tophus: without tophus Quali fied Code(s): M1A.0790 - Idiopathic chronic gout, unspecified ankle and foot, without tophus (tophi) Plan: continue meds (9) Neuropathy: Code(s): G62.9 - Polyneuropathy, unspecified Plan: see above Coding Level of Care Code New Pt Level 5 (02523) Diagnoses Obesity (BMI 30-39.9) E66.9 DVT (deep venous thrombosis) I82.409 Acute diastolic CHF (congestive heart failure) I50.31 VY (obstructive sleep apnea) G47.33 Irritable bowel syndrome with diarrhea K58.0 TIA (transient ischemic attack) G45.9 HTN (hypertension) I10 Idiopathic chronic gout of foot without tophus, unspecified laterality M1A.0790 Gout site: foot Gout etiology: idiopathic Chronicity: chronic Laterality: unspecified laterality Presence of tophus: without tophus Neuropathy G62.9
[2023-02-26 13:08] VITALS: BP 111/69; PULSE 62; TEMP 35.6; O2SAT 92; BMI 37.3
== END 2023-02-26 14:02 | disposition home or self-care (01) ==
PROVIDERS: PCP Internal Medicine; Visit Provider Physician Assistant
DX: E66.9 Obesity, unspecified (principal); Z68.37 Body mass index [BMI] 37.0-37.9, adult; I50.31 Acute diastolic (congestive) heart failure; G47.33 Obstructive sleep apnea (adult) (pediatric); K58.0 Irritable bowel syndrome with diarrhea; G45.9 Transient cerebral ischemic attack, unspecified; I10 Essential (primary) hypertension; M1A.0790 Idiopathic chronic gout, unspecified ankle and foot, without tophus (tophi); G62.9 Polyneuropathy, unspecified
CPT/HCPCS: 99205

== ENCOUNTER → 2023-02-26 12:59 | Outpatient (BNVA) | payer MEDICARE, BC, SELFPAY | PROVIDERS: PCP Internal Medicine; Visit Provider Physician Assistant | DX: E66.9 Obesity, unspecified (principal); I82.409 Acute embolism and thrombosis of unspecified deep veins of unspecified lower extremity; I50.31 Acute diastolic (congestive) heart failure; I10 Essential (primary) hypertension; G47.33 Obstructive sleep apnea (adult) (pediatric); G45.9 Transient cerebral ischemic attack, unspecified; G62.9 Polyneuropathy, unspecified; K58.0 Irritable bowel syndrome with diarrhea; M1A.0790 Idiopathic chronic gout, unspecified ankle and foot, without tophus (tophi); Z68.37 Body mass index [BMI] 37.0-37.9, adult | CPT/HCPCS: 99202 ==

== ENCOUNTER 2023-03-06 13:07 | Outpatient (AMB) | payer MEDICARE, BC, SELFPAY ==
--- NOTE | 2023-03-06 13:28 | MHC.OFFVISCO ---
Intake Intake Visit Reasons: Anticoagulation Allergies lisinopril [LISINOPRIL] Allergy (Severe, Verified 03/06/23 13:24) TONGUE SWELLING, CONFUSION environmental allergies Allergy (Unknown, Verified 03/06/23 13:24) Unknown Medication List - Last Reconciled 03/06/23 by Dana Wiseman RN acetaminophen 650 mg PO BID allopurinol 300 mg PO DAILY ascorbic acid (vitamin C) (Vitamin C) 1 g PO DAILY atorvastatin 40 mg PO BEDTIME brimonidine 0.2% 1 drp ophthalmic-Left BID diphenhydramine HCl (Benadryl) 25 mg PO BEDTIME PRN dorzolamide-timolol 22.3-6.8 mg/mL 1 drp ophthalmic (eye) BEDTIME ferrous sulfate 325 mg PO DAILY furosemide (Lasix) 20 mg PO DAILY gabapentin 300 mg PO Q8H 90 days latanoprost 0.005% 1 drp ophthalmic (eye) BEDTIME metoprolol succinate ER 200 mg PO DAILY multivitamin 1 tab PO DAILY nifedipine ER 60 mg PO DAILY pantoprazole 40 mg PO DAILY 30 days warfarin 10 mg See Protocol PO DAILY 90 days Nursing Note INR 1.9- out of therapeutic range of 2.0-2.5 Medications and supplements reviewed Patient status: pt amb with cane pt states going to weight management, not doing protein shakes Medications or supplements: no changes Diet: weight management Denies any signs and symptoms of bleeding or clotting or unusual bruising Bleeding, bruising, clotting discussed Nutritional guidance given: no greens for 2 days, eat reds to raise inr Dose: [ take 7.5mg today then cont reg dosing, 5mg x 2, 7.5mg x 5 F/U INR Date : 2 weeks?? Patient verbalizing understanding of instructions given. composed note to pcp regarding inr range Anti-Coag Initial Assessment Social Hx Patient Tobacco Use Status: Never used Tobacco alcohol intake: former Alcohol intake frequency: does not drink Cardiovascular Hx: HTN, CAD and CHF Lung Disease HX: DVT/PE and Other (VY- cpap) Endocrine Hx: Diabetes (pre diabetic) Musculoskeletal Hx: Arthritis and Gout Blood Disorder Hx: Anemia and Hyperlipidemia GI Hx: Bleeding (GI, rectal) (varices), Diverticulosis and Other (IBS with diarrhea) Neurological Hx: Stroke/TIA Cancer HX: No Psych. Illness/Depression: No Coding Level of Care Code Est Patient Level 1 Diagnoses Current use of anticoagulant therapy Z79.01 Assessment & Plan Assessment & Plan (1) Current use of anticoagulant therapy: Code(s): Z79.01 - shelter (current) use of anticoagulants Category: Medical
[2023-03-06 13:29] LABS: Prothrombin Time Whole Bld POC 23.3 sec (11.1-13.5); ~PT, ~INR - Anti Coag Clinic 1.9 (0.9-1.1)
== END 2023-03-06 13:44 | disposition home or self-care (01) ==
LOC: HO.ACS 13:07
PROVIDERS: PCP Internal Medicine; Visit Provider Internal Medicine
DX: Z79.01 Long term (current) use of anticoagulants (principal)

== ENCOUNTER → 2023-03-06 13:07 | Outpatient (BNVA) | payer MEDICARE, BC, SELFPAY | PROVIDERS: PCP Internal Medicine; Visit Provider Internal Medicine | DX: I82.409 Acute embolism and thrombosis of unspecified deep veins of unspecified lower extremity (principal); Z79.01 Long term (current) use of anticoagulants; Z51.81 Encounter for therapeutic drug level monitoring | CPT/HCPCS: 85610; 99211 ==

== ENCOUNTER 2023-03-20 13:29 | Outpatient (AMB) | payer MEDICARE, BC, SELFPAY ==
--- NOTE | 2023-03-20 13:38 | MHC.OFFVISCO ---
Intake Intake Visit Reasons: Anticoagulation Allergies lisinopril [LISINOPRIL] Allergy (Severe, Verified 03/20/23 13:33) TONGUE SWELLING, CONFUSION environmental allergies Allergy (Unknown, Verified 03/20/23 13:33) Unknown Medication List - Last Reconciled 03/20/23 by Dana Wiseman RN acetaminophen 650 mg PO BID allopurinol 300 mg PO DAILY ascorbic acid (vitamin C) (Vitamin C) 1 g PO DAILY atorvastatin 40 mg PO BEDTIME brimonidine 0.2% 1 drp ophthalmic-Left BID diphenhydramine HCl (Benadryl) 25 mg PO BEDTIME PRN dorzolamide-timolol 22.3-6.8 mg/mL 1 drp ophthalmic (eye) BEDTIME ferrous sulfate 325 mg PO DAILY furosemide (Lasix) 20 mg PO DAILY gabapentin 300 mg PO Q8H 90 days latanoprost 0.005% 1 drp ophthalmic (eye) BEDTIME metoprolol succinate ER 200 mg PO DAILY multivitamin 1 tab PO DAILY nifedipine ER 60 mg PO DAILY pantoprazole 40 mg PO DAILY 30 days warfarin 10 mg See Protocol PO DAILY 90 days Nursing Note INR 1.9-? out of therapeutic range of 2-3 Medications and supplements reviewed Patient status: pt amb with cane Medications or supplements: no changes Diet: same Denies any signs and symptoms of bleeding or clotting or unusual bruising Bleeding, bruising, clotting discussed Nutritional guidance given: no greens for 2 days Dose: 7.5mg today and increase weekly dosing to 7.5mg x 6, 5mg x 1- pt with recent increase in inr range to 2-3 F/U INR Date : 2 weeks?? Patient verbalizing understanding of instructions given. pt states monetary restrictions/fixed income- diff to manage dietary instructions at times. enc to get frozen veg on sale and keep in freezer Anti-Coag Initial Assessment Social Hx Patient Tobacco Use Status: Never used Tobacco alcohol intake: former Alcohol intake frequency: does not drink Cardiovascular Hx: HTN, CAD and CHF Lung Disease HX: DVT/PE and Other (VY- cpap) Endocrine Hx: Diabetes (pre diabetic) Musculoskeletal Hx: Arthritis and Gout Blood Disorder Hx: Anemia and Hyperlipidemia GI Hx: Bleeding (GI, rectal) (varices), Diverticulosis and Other (IBS with diarrhea) Neurological Hx: Stroke/TIA Cancer HX: No Psych. 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
[2023-03-21 08:53] LABS: Prothrombin Time Whole Bld POC 23.3 sec (11.1-13.5); ~PT, ~INR - Anti Coag Clinic 1.9 (0.9-1.1)
== END 2023-03-20 14:10 | disposition home or self-care (01) ==
LOC: HO.ACS 13:29
PROVIDERS: PCP Internal Medicine; Visit Provider Internal Medicine
DX: Z79.01 Long term (current) use of anticoagulants (principal)

== ENCOUNTER → 2023-03-20 13:29 | Outpatient (BNVA) | payer MEDICARE, SELFPAY | PROVIDERS: PCP Internal Medicine; Visit Provider Internal Medicine | DX: I82.409 Acute embolism and thrombosis of unspecified deep veins of unspecified lower extremity (principal); Z79.01 Long term (current) use of anticoagulants; Z51.81 Encounter for therapeutic drug level monitoring | CPT/HCPCS: 85610; 99211 ==

== ENCOUNTER 2023-04-01 12:54 | Outpatient (AMB) | payer MEDICARE, BC, SELFPAY ==
--- NOTE | 2023-04-01 13:15 | MHC.AMNUTRGE ---
Intake VS Expanded 04/01/23 14:44 Height 5 ft 7 in Weight 235 lb BMI 36.8 Body Fat % 34.8 Body Fat Mass 81 Visceral Fat Rating 22 Body Water Mass 109 Muscle Mass/Score 145.6 Basal Metabolic Rate/Score 2,069 Intake Visit Reasons: (OV) Initial Nutrition MWL Allergies lisinopril [LISINOPRIL] Allergy (Severe, Verified 03/20/23 13:33) TONGUE SWELLING, CONFUSION environmental allergies Allergy (Unknown, Verified 03/20/23 13:33) Unknown HPI Nutrition Diet Assmnt Details Pt walks with a cane. has had several knee surgerys, one complicated by a bone infection. pt afraid to walk long distances, dislikes driving unless absolutely necessary, very worried about falling in the winter. He is on anticoagulation therapy. he knows his limits to keep in INR in range. He is on lasix. has been limited by financial barriers , curently used up his months allocation of S.S benefits and pension. limited food. Has used food pantry in the past. Interested in [employer] for meals and exercise. 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 Lives with his brother currently and his girlfriend. Brother is his transportation, but he sleeps until 12-2pm. so pt is limited in what times he can leave his house. Is worried about program co-pays for appts Who buys your food sibling Who prepares/cooks your food sibling (pt cant stand long enough to cook ) Diagnosis Nutrition problem #1 overweight/obesity As related to (etiology) #1 excess energy intake and physical inactivity As evidenced by (sign/symptom) #1 high BMI Monitoring/Goals Nutrition problem monitoring total energy intake, level of knowledge/skill, total PRO intake, total CHO intake and weight Outcome progress progressing Learning/Education Readiness to learn excellent Stages of change action Educational materials provided Yes (pt very appreciative of education) Most Recent Diabetes Results: No Data to Display [facility] Medical History Internal derangement of right knee Environmental allergies VY on CPAP Multiple lacunar infarcts Transient alteration of awareness Routine medical exam History of TIA (transient ischemic attack) On beta miguel at home History of GI bleed Chronic right heart failure Nocturnal hypoxemia VY (obstructive sleep apnea) Chronic heart failure with preserved ejection fraction (HFpEF) Essential hypertension Obesity (BMI 30-39.9) C. difficile diarrhea Shoulder injury Lumbar spondylosis Chronic diarrhea History of alcoholism Idiopathic peripheral neuropathy Morbid obesity Pre-diabetes Diarrhea Arthritis Back pain History of Zbica-Nlmelvxzc-Fpzdt (WPW) syndrome Gout Hiatal hernia History of esophageal varices GERD (gastroesophageal reflux disease) Ascending aorta dilation HTN (hypertension) Surgical History S/P PICC central line placement Hx of total knee replacement H/O cardiac radiofrequency ablation History of esophagogastroduodenoscopy (EGD) History of colonoscopy Family History Father Diabetes mellitus Social History Household Members: Significant Other and Family Household Members Other:: BROTHER Housing: House Housing Other:: lives with s/o and brother Are you a primary patient care secretary to a significant other at home: No Do you presently have visiting nurse or other home services: No Alcohol intake: former Year quit: 1998 Comment: aware of trip hazards Patient Tobacco Use Status: Never used Tobacco e-Cigarette/Vaping Use: Never Used Second Hand Smoke Exposure: Yes Advance Directives Date on File: 05/03/20 service: No Current occupational status: retired 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 supported pt today by providing educational handouts, food access programs nearby, affordable high protein foods, consider meals on wheels and number provided. discussed with PA - CORE PT referral for physical deconditioning as pts mobility worsening per pt and he is concerned about exercising alone. Provided list of sitting exercises for home. Contact information provided - did not schedule another nutrition appt but strongly encouraged pt communicate with me in between appts as needed. Coding Level of Care Code Nutr Indiv Intake (42384) Diagnoses Obesity (BMI 30-39.9) E66.9 Time Spent (min) 40
[2023-04-01 14:44] VITALS: BMI 36.8
== END 2023-04-01 14:27 | disposition home or self-care (01) ==
PROVIDERS: PCP Internal Medicine; Visit Provider Dietitian, Registered
DX: E66.9 Obesity, unspecified (principal)

== ENCOUNTER → 2023-04-01 12:54 | Outpatient (BNVA) | payer MEDICARE, BC, SELFPAY | PROVIDERS: PCP Internal Medicine; Visit Provider Dietitian, Registered | DX: E66.9 Obesity, unspecified (principal); Z68.36 Body mass index [BMI] 36.0-36.9, adult; Z71.3 Dietary counseling and surveillance | CPT/HCPCS: 97802 ==

== ENCOUNTER 2023-04-03 13:22 | Outpatient (AMB) | payer MEDICARE, BC, SELFPAY ==
--- NOTE | 2023-04-03 13:48 | MHC.OFFVISCO ---
Intake Intake Visit Reasons: Anticoagulation Allergies lisinopril [LISINOPRIL] Allergy (Severe, Verified 04/03/23 13:43) TONGUE SWELLING, CONFUSION environmental allergies Allergy (Unknown, Verified 04/03/23 13:43) Unknown Medication List - Last Reconciled 04/03/23 by Dana Wiseman RN acetaminophen 650 mg PO BID allopurinol 300 mg PO DAILY ascorbic acid (vitamin C) (Vitamin C) 1 g PO DAILY atorvastatin 40 mg PO BEDTIME brimonidine 0.2% 1 drp ophthalmic-Left BID diphenhydramine HCl (Benadryl) 25 mg PO BEDTIME PRN dorzolamide-timolol 22.3-6.8 mg/mL 1 drp ophthalmic (eye) BEDTIME ferrous sulfate 325 mg PO DAILY furosemide (Lasix) 20 mg PO DAILY gabapentin 300 mg PO Q8H 90 days latanoprost 0.005% 1 drp ophthalmic (eye) BEDTIME metoprolol succinate ER 200 mg PO DAILY multivitamin 1 tab PO DAILY nifedipine ER 60 mg PO DAILY pantoprazole 40 mg PO DAILY 30 days warfarin 10 mg See Protocol PO DAILY 90 days Nursing Note INR: 2.8- in therapeutic range of 2-3 Medications and supplements reviewed- no changes No changes in health, diet, medications, or supplements, Denies any signs and symptoms of bleeding or bruising or clotting. Bleeding, bruising, clotting discussed Nutritional guidance given Dose: 5mg x 1, 7.5mg x 6 F/U INR: 3 weeks Patient verbalizes understanding of instructions given pt states dental consult - will call acs with any proc Anti-Coag Initial Assessment Social Hx Patient Tobacco Use Status: Never used Tobacco alcohol intake: former Alcohol intake frequency: does not drink Cardiovascular Hx: HTN, CAD and CHF Lung Disease HX: DVT/PE and Other (VY- cpap) Endocrine Hx: Diabetes (pre diabetic) Musculoskeletal Hx: Arthritis and Gout Blood Disorder Hx: Anemia and Hyperlipidemia GI Hx: Bleeding (GI, rectal) (varices), Diverticulosis and Other (IBS with diarrhea) Neurological Hx: Stroke/TIA Cancer HX: No Psych. 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
[2023-04-03 13:50] LABS: Prothrombin Time Whole Bld POC 34.1 sec (11.1-13.5); ~PT, ~INR - Anti Coag Clinic 2.8 (0.9-1.1)
== END 2023-04-03 13:55 | disposition home or self-care (01) ==
LOC: HO.ACS 13:22
PROVIDERS: PCP Internal Medicine; Visit Provider Internal Medicine
DX: Z79.01 Long term (current) use of anticoagulants (principal)

== ENCOUNTER → 2023-04-03 13:22 | Outpatient (BNVA) | payer MEDICARE, SELFPAY | PROVIDERS: PCP Internal Medicine; Visit Provider Internal Medicine | DX: I82.409 Acute embolism and thrombosis of unspecified deep veins of unspecified lower extremity (principal); Z79.01 Long term (current) use of anticoagulants; Z51.81 Encounter for therapeutic drug level monitoring | CPT/HCPCS: 85610; 99211 ==

== ENCOUNTER 2023-04-21 11:40 | Outpatient (AMB) | payer MEDICARE, SELFPAY ==
--- NOTE | 2023-04-21 11:41 | MHC.OFFVIS ---
Intake Intake Visit Reasons: 6 month follow up Intake Note: Alek presents in the office as a 6 month follow up. CC: States he is doing better from covid. denies haveing a Computer Repair Instructor Required: No Allergies lisinopril [LISINOPRIL] Allergy (Severe, Verified 04/21/23 11:43) TONGUE SWELLING, CONFUSION environmental allergies Allergy (Unknown, Verified 04/21/23 11:43) Unknown HPI 6 month follow up HPI Details 67 yr old m being called for f/u RECAP: He had diarrhea and had c diff pos initially treated with flagyl but not better then on vancomycin and completed course he still has diarrhea has to take imodium to control it otherwise it can be bad his brother did have c diff as well Due to his ongoing sx I did re order c diff testing EGd/colon- 12/2019--barretts and tubular adenomas repeat C diff 08/2020--negative Wehn I spoke to him last he was recovering from knee surgery INTERIM: slow recovery from knee surgery--cold weather makes it worse no issues with bowels, he is happy no abdominal pain, no nausea or vomiting still takes probiotics, still taking coumadin still taking pantoprazole EXAM: GENERAL: The patient is well developed and nontoxic. A/P: 1/ Altered bowel habits,post infectious IBS, doing better now, he has issues with mobility and now on coumadin for DVT 2/ barretts esophagus with inflammation, chronic PLAN 1/ He has still not fully recovered from knee surgery and has poor mobility, he has been told could take a year will reassess again in 6 months 2/ cont with high fiber intake, 3/ cont with PPI [facility] Medical History Internal derangement of right knee Environmental allergies VY on CPAP Multiple lacunar infarcts Transient alteration of awareness Routine medical exam History of TIA (transient ischemic attack) On beta miguel at home History of GI bleed Chronic right heart failure Nocturnal hypoxemia VY (obstructive sleep apnea) Chronic heart failure with preserved ejection fraction (HFpEF) Essential hypertension Obesity (BMI 30-39.9) C. difficile diarrhea Shoulder injury Lumbar spondylosis Chronic diarrhea History of alcoholism Idiopathic peripheral neuropathy Morbid obesity Pre-diabetes Diarrhea Arthritis Back pain History of Rxbhn-Chjbqglnu-Zcacb (WPW) syndrome Gout Hiatal hernia History of esophageal varices GERD (gastroesophageal reflux disease) Ascending aorta dilation HTN (hypertension) Surgical History S/P PICC central line placement Hx of total knee replacement H/O cardiac radiofrequency ablation History of esophagogastroduodenoscopy (EGD) History of colonoscopy Family History Father Diabetes mellitus Social History Household Members: Significant Other and Family Household Members Other:: BROTHER Housing: House Housing Other:: lives with s/o and brother Are you a primary special needs child caregiver to a significant other at home: No Do you presently have visiting nurse or other home services: No Alcohol intake: former Year quit: 1998 Comment: aware of trip hazards Patient Tobacco Use Status: Never used Tobacco e-Cigarette/Vaping Use: Never Used Second Hand Smoke Exposure: Yes Advance Directives Date on File: 05/03/20 service: No Current occupational status: retired 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 Current occupational exposures/hazards: Yes Cognitive needs: No Hearing needs: No Vision needs: Yes Assessment & Plan Assessment & Plan (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
== END 2023-04-21 12:42 | disposition home or self-care (01) ==
LOC: HO.HGI 11:40
PROVIDERS: PCP Internal Medicine; Visit Provider Internal Medicine Gastroenterology
DX: K22.70 Barrett's esophagus without dysplasia (principal)
CPT/HCPCS: 99212

== ENCOUNTER → 2023-04-21 11:40 | Outpatient (BNVA) | payer MEDICARE, SELFPAY | PROVIDERS: PCP Internal Medicine; Visit Provider Internal Medicine Gastroenterology ==

== ENCOUNTER 2023-04-24 12:53 | Outpatient (AMB) | payer MEDICARE, SELFPAY ==
[2023-04-24 13:16] LABS: Prothrombin Time Whole Bld POC 39.9 sec (11.1-13.5); ~PT, ~INR - Anti Coag Clinic 3.3 (0.9-1.1)
--- NOTE | 2023-04-24 13:20 | MHC.OFFVISCO ---
Intake Intake Visit Reasons: Anticoagulation Allergies lisinopril [LISINOPRIL] Allergy (Severe, Verified 04/24/23 13:10) TONGUE SWELLING, CONFUSION environmental allergies Allergy (Unknown, Verified 04/24/23 13:10) Unknown Medication List - Last Reconciled 04/24/23 by Fadumo De Jesus RN acetaminophen 650 mg PO BID allopurinol 300 mg PO DAILY amoxicillin 2,000 mg PO ONCE PRN ascorbic acid (vitamin C) (Vitamin C) 1 g PO DAILY atorvastatin 40 mg PO BEDTIME brimonidine 0.2% 1 drp ophthalmic-Left BID diphenhydramine HCl (Benadryl) 25 mg PO BEDTIME PRN dorzolamide-timolol 22.3-6.8 mg/mL 1 drp ophthalmic (eye) BEDTIME ferrous sulfate 325 mg PO DAILY furosemide (Lasix) 20 mg PO DAILY gabapentin 300 mg PO Q8H 90 days latanoprost 0.005% 1 drp ophthalmic (eye) BEDTIME metoprolol succinate ER 200 mg PO DAILY multivitamin 1 tab PO DAILY nifedipine ER 60 mg PO DAILY pantoprazole 40 mg PO DAILY 30 days warfarin 10 mg See Protocol PO DAILY 90 days Nursing Note Amb to [facility] using cane, feeling ok indicates he is being referred to an oral surgeon for 4 teeth to be extracted, no date yet Medications and supplements reviewed, indicates taking tylenol for back issues No other changes in health, diet, medications, or supplements Denies any unusual signs and symptoms of bruising, bleeding Denies any new Chest pain, SOB, or clotting INR: 3.3 above therapeutic range Nutritional guidance given: good greens today then balance greens and reds in diet, increase greens when taking more tylenol Dose: decrease dose today to 5mg then resume usual dosing tomorrow; 5mg x 1 day and 7.5mg x 6 days F/U INR: 2 weeks keep us in communication for upcoming dental work Patient verbalizes understanding of instructions given with accurate read back/ teach back of dosing Anti-Coag Initial Assessment Social Hx Patient Tobacco Use Status: Never used Tobacco alcohol intake: former Alcohol intake frequency: does not drink Cardiovascular Hx: HTN, CAD and CHF Lung Disease HX: DVT/PE and Other (VY- cpap) Endocrine Hx: Diabetes (pre diabetic) Musculoskeletal Hx: Arthritis and Gout Blood Disorder Hx: Anemia and Hyperlipidemia GI Hx: Bleeding (GI, rectal) (varices), Diverticulosis and Other (IBS with diarrhea) Neurological Hx: Stroke/TIA Cancer HX: No Psych. Illness/Depression: No Coding Level of Care Code Est Patient Level 1 Diagnoses Current use of anticoagulant therapy Z79.01 Time Spent (min) 15 Assessment & Plan Assessment & Plan (1) Current use of anticoagulant therapy: Code(s): Z79.01 - senior living (current) use of anticoagulants Category: Medical
== END 2023-04-24 16:06 | disposition home or self-care (01) ==
PROVIDERS: PCP Internal Medicine; Visit Provider Internal Medicine
DX: Z79.01 Long term (current) use of anticoagulants (principal)

== ENCOUNTER → 2023-04-24 12:53 | Outpatient (BNVA) | payer MEDICARE, SELFPAY | PROVIDERS: PCP Internal Medicine; Visit Provider Internal Medicine | DX: I82.409 Acute embolism and thrombosis of unspecified deep veins of unspecified lower extremity (principal); Z79.01 Long term (current) use of anticoagulants; Z51.81 Encounter for therapeutic drug level monitoring | CPT/HCPCS: 85610; 99211 ==

== ENCOUNTER 2023-04-30 13:00 | Outpatient (AMB) | payer MEDICARE, SELFPAY ==
--- NOTE | 2023-04-30 12:50 | A.OFFVIS_ITS ---
Intake VS Expanded 04/30/23 13:26 Height 5 ft 7 in Weight 234 lb 8 oz BMI 36.7 Intake Visit Reasons: (TV) F/U [facility] Allergies lisinopril [LISINOPRIL] Allergy (Severe, Verified 04/24/23 13:10) TONGUE SWELLING, CONFUSION environmental allergies Allergy (Unknown, Verified 04/24/23 13:10) Unknown HPI HPI Comments History of Present Illness Details 67 yo man started M[facility] program on 3 at 238.4 lbs, he had appt with Fanny last month and did not watch any MWL videos. His TBWL so far is 4 lbs. He had gotten down to 228 and then went off the plan and has not gone back to the plan yet. He never texted me any updates over 2 months. Exercise - walking for a few minutes only sometimes a few days per week.Arthritris in knees and hip. Runs out of money for food half way through the month. Meal plan - he never started, never bought shakes and bars. [facility], LAT[facility] Medical History Internal derangement of right knee Environmental allergies VY on CPAP Multiple lacunar infarcts Transient alteration of awareness Routine medical exam History of TIA (transient ischemic attack) On beta miguel at home History of GI bleed Chronic right heart failure Nocturnal hypoxemia VY (obstructive sleep apnea) Chronic heart failure with preserved ejection fraction (HFpEF) Essential hypertension Obesity (BMI 30-39.9) C. difficile diarrhea Shoulder injury Lumbar spondylosis Chronic diarrhea History of alcoholism Idiopathic peripheral neuropathy Morbid obesity Pre-diabetes Diarrhea Arthritis Back pain History of Dutaw-Nyklhnixc-Zzfie (WPW) syndrome Gout Hiatal hernia History of esophageal varices GERD (gastroesophageal reflux disease) Ascending aorta dilation HTN (hypertension) Surgical History S/P PICC central line placement Hx of total knee replacement H/O cardiac radiofrequency ablation History of esophagogastroduodenoscopy (EGD) History of colonoscopy Family History Father Diabetes mellitus Social History Household Members: Significant Other and Family Household Members Other:: BROTHER Housing: House Housing Other:: lives with s/o and brother Are you a primary careers counsellor to a significant other at home: No Do you presently have visiting nurse or other home services: No Alcohol intake: former Year quit: 1998 Comment: aware of trip hazards Patient Tobacco Use Status: Never used Tobacco e-Cigarette/Vaping Use: Never Used Second Hand Smoke Exposure: Yes Advance Directives Date on File: 05/03/20 service: No Current occupational status: retired 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 He wants to try again and will be given access to classes again today and will start meal plan. Exrcise - we discussed pre treaatment with acetaminophen, walk for 30 minutes and then ice joints with legs elevated. Next appt with me in 4 weeks, encouraged to text me weekly. Patient is still obese and is not considered stable at this time. I spent 15 minutes in total speaking with the patient via video conference counseling , reviewing records and charting in patients chart. . Telehealth Telehealth Location of provider rendering services: practice address Location of patient: address on file Patient Identification confirmed using: Name, : Yes Telehealth method: video Patient verbally consented to treatment: Yes Patient verbally consented to billing insurance company: Yes Patient informed of any privacy concerns related to visit: Yes Coding Level of Care Code Tele Est Pt Level 3 (80620) Diagnoses Obesity (BMI 30-39.9) E66.9
[2023-04-30 13:26] VITALS: BMI 36.7
== END 2023-04-30 13:40 | disposition home or self-care (01) ==
LOC: HO.HBS 13:39
PROVIDERS: PCP Internal Medicine; Visit Provider Physician Assistant
DX: E66.9 Obesity, unspecified (principal); Z68.36 Body mass index [BMI] 36.0-36.9, adult
CPT/HCPCS: 99212

== ENCOUNTER → 2023-04-30 13:00 | Outpatient (BNVA) | payer MEDICARE, SELFPAY | PROVIDERS: PCP Internal Medicine; Visit Provider Physician Assistant ==

== ENCOUNTER 2023-05-02 12:20 | Outpatient (AMB) | payer MEDICARE, BC, SELFPAY ==
[2023-05-02 12:22] VITALS: BP 112/68; PULSE 63; O2SAT 95; BMI 37.0
--- NOTE | 2023-05-02 12:22 | MHC.PC.OV ---
Vital Signs 05/02/23 12:22 Height 5 ft 7 in Weight 236 lb BMI 37.0 BP 112/68 Blood Pressure Location Lt brachial Position Sitting Pulse 63 Pulse Source Pulse Oximeter Pulse Oximetry (%) 95 Oxygen Delivery Method Room Air Intake Visit Reasons: 3 Month follow up Allergies lisinopril [LISINOPRIL] Allergy (Severe, Verified 05/02/23 12:23) TONGUE SWELLING, CONFUSION environmental allergies Allergy (Unknown, Verified 05/02/23 12:23) Unknown Medication List - Last Reconciled 05/02/23 by Conchita Chavis MD acetaminophen 650 mg PO BID allopurinol 300 mg PO DAILY amoxicillin 2,000 mg PO ONCE PRN ascorbic acid (vitamin C) (Vitamin C) 1 g PO DAILY atorvastatin 40 mg PO BEDTIME brimonidine 0.2% 1 drp ophthalmic-Left BID diphenhydramine HCl (Benadryl) 25 mg PO BEDTIME PRN dorzolamide-timolol 22.3-6.8 mg/mL 1 drp ophthalmic (eye) BEDTIME ferrous sulfate 325 mg PO DAILY furosemide (Lasix) 20 mg PO DAILY gabapentin 300 mg PO Q8H 90 days latanoprost 0.005% 1 drp ophthalmic (eye) BEDTIME metoprolol succinate ER 200 mg PO DAILY multivitamin 1 tab PO DAILY nifedipine ER 60 mg PO DAILY pantoprazole 40 mg PO DAILY 30 days warfarin 10 mg See Protocol PO DAILY 90 days Tobacco use date assessed: 05/02/23 Fall risk assessment: No Falls in past year Last assessed Fall Risk: 05/02/23 Dental Screening Dental Screen Date: 05/02/23 Did you have a dental visit in the last 12 months?: Yes Did you have a dental problem in the last 6 months where you did not have access to dental care?: No Was dental information given to patient?: No HPI 3 Month follow up HPI Details Patient is a 67 year old gentleman came in today for his regular follow-up appointment Only medications from PCP office are allopurinol, for gout, indomethacin as needed for flare-up of gout and gabapentin for peripheral neuropathy pain. Patient is seeing cardiology for ascending aortic aneurysm last CTA 2021, showed aortic size of 4.7 cm x 4.7 cm. No change from 2020. Obstructive sleep apnea: Patient is using CPAP machine regularly Blood pressure management through cardiology office Patient also have a chronic right heart failure and coronary artery calcifications seen on CAT scan He is taking atorvastatin 40 mg for lipid control, and metoprolol 200 mg through Cardiology along with nifedipine 90 mg for blood pressure Patient is also seeing Gastroenterology and is taking pantoprazole 40 mg which he tells me that he is now only taking as needed. f/u Orthopedic after knee replacement His H&H has improved, he is on iron supplement and is established with Hematology Patient is also seeing Gastroenterology for IBS and chronic GERD and is taking pantoprazole 40 mg which he tells me that he is now only taking as needed. BMI is elevated , patient is having difficulty losing weight Follow-up 3 months FOR[facility], LAT[facility] Medical History Internal derangement of right knee Environmental allergies VY on CPAP Multiple lacunar infarcts Transient alteration of awareness Routine medical exam History of TIA (transient ischemic attack) On beta miguel at home History of GI bleed Chronic right heart failure Nocturnal hypoxemia VY (obstructive sleep apnea) Chronic heart failure with preserved ejection fraction (HFpEF) Essential hypertension Obesity (BMI 30-39.9) C. difficile diarrhea Shoulder injury Lumbar spondylosis Chronic diarrhea History of alcoholism Idiopathic peripheral neuropathy Morbid obesity Pre-diabetes Diarrhea Arthritis Back pain History of Wyjfn-Fhjmfoeiz-Ndpta (WPW) syndrome Gout Hiatal hernia History of esophageal varices GERD (gastroesophageal reflux disease) Ascending aorta dilation HTN (hypertension) Surgical History S/P PICC central line placement Hx of total knee replacement H/O cardiac radiofrequency ablation History of esophagogastroduodenoscopy (EGD) History of colonoscopy Family History Father Diabetes mellitus Social History Household Members: Significant Other and Family Household Members Other:: BROTHER Housing: House Housing Other:: lives with s/o and brother Are you a primary administrator health care facility to a significant other at home: No Do you presently have visiting nurse or other home services: No Alcohol intake: former Year quit: 1998 Comment: aware of trip hazards Patient Tobacco Use Status: Never used Tobacco e-Cigarette/Vaping Use: Never Used Second Hand Smoke Exposure: Yes Advance Directives Date on File: 05/03/20 service: No Current occupational status: retired 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 Cornell Toth, Odalys Ponce, Matt Hickman and colleagues, with an educational otoniel from [id number]. Review of Systems Const Denies chills and Denies fever(s) ENT Denies epistaxis and Denies nasal discharge Card Denies chest pain Resp Denies chest congestion, Denies cough and Denies hemoptysis GI Denies diarrhea and Denies nausea Skin/Breast Denies rash Neuro Reports no additional complaints Psych Reports no additional complaints Endo Reports no additional complaints Physical exam (Primary Care) Vital Signs: Last Vital Signs Pulse 63 05/02/23 12:22 BP 112/68 05/02/23 12:22 Pulse Ox 95 05/02/23 12:22 Oxygen Delivery Method Room Air 05/02/23 12:22 BMI result Body Mass Index 37.0 Tobacco/Smoking Status: Tobacco use Status Tobacco use date assessed 05/02/23 05/02/23 12:28 Patient Tobacco Use Status Never used Tobacco 05/02/23 12:28 e-Cigarette/Vaping Use Never Used 05/02/23 12:28 Thrive Assessment: Date of Thrive Assessment Date Thrive assessed 11/21/20 05/02/23 12:28 Const General: cooperative, comfortable and no acute distress Orientation/consciousness: patient oriented x3 HENMT Head: Yes normocephalic Eyes General: appearance normal, both eyes and all related structures Neck Neck: Yes supple Resp Effort & Inspection: normal respiratory effort, no cough and no stridor Cardio Rhythm: regular rhythm Heart sounds: S1 normal heart sound present and S2 normal heart sound present Skin General skin exam: turgor normal Neuro General: patient oriented x3, tone normal and moves all extremities Extrem Right lower extremity: no edema Left lower extremity: no edema Assessment and Plan Assessment & Plan (1) Idiopathic peripheral neuropathy: Code(s): G60.9 - Hereditary and idiopathic neuropathy, unspecified (2) Essential hypertension: Code(s): I10 - Essential (primary) hypertension (3) Obesity (BMI 30-39.9): Code(s): E66.9 - Obesity, unspecified (4) Ascending aorta dilation: Code(s): I77.810 - Thoracic aortic ectasia (5) Chronic right heart failure: Code(s): I50.812 - Chronic right heart failure (6) Gout: Code(s): M10.9 - Gout, unspecified Qualifiers: Chronicity: chronic Gout etiology: idiopathic Gout site: foot Laterality: unspecified laterality Presence of tophus: without tophus Qualified Code(s): M1A.0790 - Idiopathic chronic gout, unspecified ankle and foot, without tophus (tophi) (7) Pre-diabetes: Code(s): R73.03 - Prediabetes (8) Iron deficiency: Code(s): E61.1 - Iron deficiency (9) Irritable bowel syndrome with diarrhea: Code(s): K58.0 - Irritable bowel syndrome with diarrhea (10) VY (obstructive sleep apnea): Code(s): G47.33 - Obstructive sleep apnea (adult) (pediatric) (11) Neuropathy: Code(s): G62.9 - Polyneuropathy, unspecified (12) IBS (irritable bowel syndrome): Code(s): K58.9 - Irritable bowel syndrome without diarrhea Qualifiers: Irritable bowel syndrome type: with both diarrhea and constipation Qualified Code(s): K58.2 - Mixed irritable bowel syndrome (13) Briscoe esophagus: Code(s): K22.70 - Briscoe's esophagus without dysplasia (14) Status post revision of total replacement of right knee: Code(s): Z96.651 - Presence of right artificial knee joint (15) Diastolic dysfunction: Comment: . Code(s): I51.89 - Other ill-defined heart diseases (16) Anemia: Code(s): D64.9 - Anemia, unspecified Qualifiers: Anemia type: unspecified type Qualified Code(s): D64.9 - Anemia, unspecified Plan Patient is a 67 year old gentleman came in today for his regular follow-up appointment Only medications from PCP office are allopurinol, for gout, indomethacin as needed for flare-up of gout and gabapentin for peripheral neuropathy pain. Patient is seeing cardiology for ascending aortic aneurysm last CTA 2021, showed aortic size of 4.7 cm x 4.7 cm. No change from 2020. Obstructive sleep apnea: Patient is using CPAP machine regularly Blood pressure management through cardiology office Patient also have a chronic right heart failure and coronary artery calcifications seen on CAT scan He is taking atorvastatin 40 mg for lipid control, and metoprolol 200 mg through Cardiology along with nifedipine 90 mg for blood pressure Patient is also seeing Gastroenterology and is taking pantoprazole 40 mg which he tells me that he is now only taking as needed. f/u Orthopedic after knee replacement His H&H has improved, he is on iron supplement and is established with Hematology Patient is also seeing Gastroenterology for IBS and chronic GERD and is taking pantoprazole 40 mg which he tells me that he is now only taking as needed. BMI is elevated , patient is having difficulty losing weight Follow-up 3 months Medications: Refilled gabapentin 300 mg PO Q8H 90 days 270 caps 0RF gabapentin 300 mg PO Q8H 270 caps 1RF 90 days Coding Level of Care Code Est Pt Level 4 (38740) Diagnoses Idiopathic peripheral neuropathy G60.9 Essential hypertension I10 Obesity (BMI 30-39.9) E66.9 Ascending aorta dilation I77.810 Chronic right heart failure I50.812 Idiopathic chronic gout of foot without tophus, unspecified laterality M1A.0790 Chronicity: chronic Gout etiology: idiopathic Gout site: foot Laterality: unspecified laterality Presence of tophus: without tophus Pre-diabetes R73.03 Iron deficiency E61.1 Irritable bowel syndrome with diarrhea K58.0 VY (obstructive sleep apnea) G47.33 Neuropathy G62.9 Irritable bowel syndrome with both constipation and diarrhea K58.2 Irritable bowel syndrome type: with both diarrhea and constipation Briscoe esophagus K22.70 Status post revision of total replacement of right knee Z96.651 Diastolic dysfunction I51.89 Anemia, unspecified type D64.9 Anemia type: unspecified type
== END 2023-05-02 16:17 | disposition home or self-care (01) ==
PROVIDERS: PCP Internal Medicine; Visit Provider Internal Medicine
DX: I77.810 Thoracic aortic ectasia (principal); I11.0 Hypertensive heart disease with heart failure; I50.812 Chronic right heart failure; Z68.37 Body mass index [BMI] 37.0-37.9, adult; E66.9 Obesity, unspecified; G60.9 Hereditary and idiopathic neuropathy, unspecified; M1A.0790 Idiopathic chronic gout, unspecified ankle and foot, without tophus (tophi); R73.03 Prediabetes; E61.1 Iron deficiency; K58.0 Irritable bowel syndrome with diarrhea; G47.33 Obstructive sleep apnea (adult) (pediatric); G62.9 Polyneuropathy, unspecified
CPT/HCPCS: 99214

== ENCOUNTER 2023-05-02 12:38 | Outpatient (REF) | payer MEDICARE, BC, SELFPAY ==
[2023-05-02 16:05] LABS: MANUAL DIFF FLAG NO
[2023-05-02 16:08] LABS: Basophils Percent Auto 0.5 % (0-2); Eosinophils Absolute Auto 0.3 X10*3/uL (0.0-0.4); Eosinophils Percent Auto 4.8 % (0-4); Hematocrit 40.6 % (42.0-52.0); Hemoglobin 13.6 g/dl (14.0-18.0); Imm Gran Abs Auto 0.01 X10*3/uL (0.00-0.03); Imm Gran Pct Auto 0.2 % (0.0-0.4); Lymphocytes Absolute Auto 1.6 X10*3/uL (1.2-4.9); Lymphocytes Percent Auto 26.9 % (20-40); Mean Corpuscular HGB Conc 33.5 g/dl (31.0-36.0); Mean Corpuscular Hemoglobin 30.4 pg (27.0-33.0); Mean Corpuscular Volume 90.6 fL (80.0-98.0); Mean Platelet Volume 11.5 fL (9.4-12.4); Monocytes Absolute Auto 0.5 X10*3/uL (0.1-1.2); Monocytes Percent Auto 9.1 % (2-11); Neutrophils Absolute Auto 3.4 x10*3/uL (2.0-8.3); Neutrophils Percent Auto 58.5 % (45-73); Platelet Count 206 X10*3/uL (160-400); Red Blood Count 4.48 X10*6/uL (4.60-5.80); Red Cell Distribution Width 13.6 % (11.0-16.0); White Blood Count 5.8 X10*3/uL (4.8-10.8)
[2023-05-02 16:14] LABS: Estimated Average Glucose 108 mg/dL; Hemoglobin A1c % 5.4 % (<6.0)
[2023-05-02 16:19] LABS: Alanine Aminotransferase 19 U/L (0-40); Alkaline Phosphatase 94 U/L (39-117); Anion Gap 12 (12-20); Aspartate Amino Transferase 20 U/L (5-37); Bilirubin Total 1.2 mg/dL (0.0-1.0); Blood Urea Nitrogen 16 mg/dL (9-16); Calcium 10.1 mg/dL (8.4-10.2); Carbon Dioxide 26 mmol/L (22-29); Chloride 107 mmol/L (96-108); Estimated Glomerular Filt Rate > 60; Glucose Random 120 mg/dL (60-115); Potassium 3.7 mmol/L (3.3-5.1); Sodium 141 mmol/L (135-145); Total Protein 7.1 g/dL (6.5-8.0)
[2023-05-03 08:53] LABS: LDL Cholesterol Direct 53 mg/dL (<100)
== END 2023-05-02 12:39 | disposition home or self-care (01) ==
LOC: HO.HMGCLDS 12:38
PROVIDERS: PCP Internal Medicine; Visit Provider Internal Medicine
DX: M10.9 Gout, unspecified (principal)
CPT/HCPCS: 36415; 80053; 83036; 83721; 85025

== ENCOUNTER 2023-05-08 13:33 | Outpatient (AMB) | payer MEDICARE, BC, SELFPAY ==
--- NOTE | 2023-05-08 13:44 | MHC.OFFVISCO ---
Intake Intake Visit Reasons: Anticoagulation Allergies lisinopril [LISINOPRIL] Allergy (Severe, Verified 05/08/23 13:34) TONGUE SWELLING, CONFUSION environmental allergies Allergy (Unknown, Verified 05/08/23 13:34) Unknown Medication List - Last Reconciled 05/08/23 by Fadumo De Jesus RN acetaminophen 650 mg PO BID allopurinol 300 mg PO DAILY amoxicillin 2,000 mg PO ONCE PRN ascorbic acid (vitamin C) (Vitamin C) 1 g PO DAILY atorvastatin 40 mg PO BEDTIME brimonidine 0.2% 1 drp ophthalmic-Left BID diphenhydramine HCl (Benadryl) 25 mg PO BEDTIME PRN dorzolamide-timolol 22.3-6.8 mg/mL 1 drp ophthalmic (eye) BEDTIME ferrous sulfate 325 mg PO DAILY furosemide (Lasix) 20 mg PO DAILY gabapentin 300 mg PO Q8H 90 days latanoprost 0.005% 1 drp ophthalmic (eye) BEDTIME metoprolol succinate ER 200 mg PO DAILY multivitamin 1 tab PO DAILY nifedipine ER 60 mg PO DAILY pantoprazole 40 mg PO DAILY 30 days warfarin 10 mg See Protocol PO DAILY 90 days Nursing Note Amb to [facility] using cane, feeling well Medications and supplements reviewed No changes in health, diet, medications, or supplements Denies any unusual signs and symptoms of bruising, bleeding Denies any new Chest pain, SOB, or clotting INR: 3.3 above therapeutic range above range last 2 visits, pt not sure why it has been elevated, feels he is eating same Nutritional guidance given: balance greens and reds in diet Dose: will decrease weekly back to 5mg x 2 days and 7.5mg x 5 days, due to recent above range INRs;pt also aware this may be adjusted again F/U INR:2 weeks Patient verbalizes understanding of instructions given with accurate read back/ teach back of dosing Anti-Coag Initial Assessment Social Hx Patient Tobacco Use Status: Never used Tobacco alcohol intake: former Alcohol intake frequency: does not drink Cardiovascular Hx: HTN, CAD and CHF Lung Disease HX: DVT/PE and Other (VY- cpap) Endocrine Hx: Diabetes (pre diabetic) Musculoskeletal Hx: Arthritis and Gout Blood Disorder Hx: Anemia and Hyperlipidemia GI Hx: Bleeding (GI, rectal) (varices), Diverticulosis and Other (IBS with diarrhea) Neurological Hx: Stroke/TIA Cancer HX: No Psych. Illness/Depression: No Coding Level of Care Code Est Patient Level 1 Diagnoses Current use of anticoagulant therapy Z79.01 Time Spent (min) 15 Assessment & Plan Assessment & Plan (1) Current use of anticoagulant therapy: Code(s): Z79.01 - senior living (current) use of anticoagulants Category: Medical
[2023-05-08 13:46] LABS: Prothrombin Time Whole Bld POC 39.4 sec (11.1-13.5); ~PT, ~INR - Anti Coag Clinic 3.3 (0.9-1.1)
== END 2023-05-08 13:51 | disposition home or self-care (01) ==
LOC: HO.ACS 13:33
PROVIDERS: PCP Internal Medicine; Visit Provider Internal Medicine
DX: Z79.01 Long term (current) use of anticoagulants (principal)

== ENCOUNTER → 2023-05-08 13:33 | Outpatient (BNVA) | payer MEDICARE, BC, SELFPAY | PROVIDERS: PCP Internal Medicine; Visit Provider Internal Medicine | DX: I82.409 Acute embolism and thrombosis of unspecified deep veins of unspecified lower extremity (principal); Z79.01 Long term (current) use of anticoagulants; Z51.81 Encounter for therapeutic drug level monitoring | CPT/HCPCS: 85610; 99211 ==

== ENCOUNTER → 2023-05-12 15:46 | Outpatient (BNVA) | payer MEDICARE, BC, SELFPAY | PROVIDERS: PCP Internal Medicine; Visit Provider Internal Medicine ==

== ENCOUNTER 2023-05-15 13:54 | Outpatient (AMB) | payer MEDICARE, BC, SELFPAY ==
[2023-05-15 14:13] LABS: Prothrombin Time Whole Bld POC 29.5 sec (11.1-13.5); ~PT, ~INR - Anti Coag Clinic 2.5 (0.9-1.1)
--- NOTE | 2023-05-15 14:19 | MHC.OFFVISCO ---
Intake Intake Visit Reasons: Anticoagulation Allergies lisinopril [LISINOPRIL] Allergy (Severe, Verified 05/15/23 14:04) TONGUE SWELLING, CONFUSION environmental allergies Allergy (Unknown, Verified 05/15/23 14:04) Unknown Medication List - Last Reconciled 05/15/23 by Laverne Mendoza, RN acetaminophen 650 mg PO BID allopurinol 300 mg PO DAILY amoxicillin 2,000 mg PO ONCE PRN ascorbic acid (vitamin C) (Vitamin C) 1 g PO DAILY atorvastatin 40 mg PO BEDTIME brimonidine 0.2% 1 drp ophthalmic-Left BID diphenhydramine HCl (Benadryl) 25 mg PO BEDTIME PRN dorzolamide-timolol 22.3-6.8 mg/mL 1 drp ophthalmic (eye) BEDTIME ferrous sulfate 325 mg PO DAILY furosemide (Lasix) 20 mg PO DAILY gabapentin 300 mg PO Q8H 90 days latanoprost 0.005% 1 drp ophthalmic (eye) BEDTIME metoprolol succinate ER 200 mg PO DAILY multivitamin 1 tab PO DAILY nifedipine ER 60 mg PO DAILY pantoprazole 40 mg PO DAILY 30 days warfarin 10 mg See Protocol PO DAILY 90 days Nursing Note PT.HAS 3 DAYS REMAINING ON AMOXICILLIN(DENTAL) CONTINUE PRESENT DOSE AND FOLLOW-UP HERE ON 05/22/23. GOOD UNDERSTANDING OF DOSING INSTR. PT.AGREES TO CALL IF FURTHER QUESTIONS/CONCERNS ARISE. Anti-Coag Initial Assessment Social Hx Patient Tobacco Use Status: Never used Tobacco alcohol intake: former Alcohol intake frequency: does not drink Cardiovascular Hx: HTN, CAD and CHF Lung Disease HX: DVT/PE and Other (VY- cpap) Endocrine Hx: Diabetes (pre diabetic) Musculoskeletal Hx: Arthritis and Gout Blood Disorder Hx: Anemia and Hyperlipidemia GI Hx: Bleeding (GI, rectal) (varices), Diverticulosis and Other (IBS with diarrhea) Neurological Hx: Stroke/TIA Cancer HX: No Psych. Illness/Depression: No Coding Level of Care Code Est Patient Level 1 Diagnoses Current use of anticoagulant therapy Z79.01 Results AMB INR Fingerstick AMB INR Fingerstick 2.5 Last Edit by Laverne Mendoza, RN on 05/15/23 14:13 Assessment & Plan Assessment & Plan (1) Current use of anticoagulant therapy: Code(s): Z79.01 - [facility] (current) use of anticoagulants Category: Medical
== END 2023-05-15 14:22 | disposition home or self-care (01) ==
LOC: HO.ACS 13:54
PROVIDERS: PCP Internal Medicine; Visit Provider Internal Medicine
DX: Z79.01 Long term (current) use of anticoagulants (principal)

== ENCOUNTER → 2023-05-15 13:54 | Outpatient (BNVA) | payer MEDICARE, BC, SELFPAY | PROVIDERS: PCP Internal Medicine; Visit Provider Internal Medicine | DX: I82.409 Acute embolism and thrombosis of unspecified deep veins of unspecified lower extremity (principal); Z79.01 Long term (current) use of anticoagulants; Z51.81 Encounter for therapeutic drug level monitoring | CPT/HCPCS: 85610; 99211 ==

== ENCOUNTER 2023-05-22 13:21 | Outpatient (AMB) | payer MEDICARE, BC, SELFPAY ==
[2023-05-22 13:47] LABS: Prothrombin Time Whole Bld POC 24.3 sec (11.1-13.5)
--- NOTE | 2023-05-22 13:54 | MHC.OFFVISCO ---
Intake Intake Visit Reasons: Anticoagulation Allergies lisinopril [LISINOPRIL] Allergy (Severe, Verified 05/22/23 13:31) TONGUE SWELLING, CONFUSION environmental allergies Allergy (Unknown, Verified 05/22/23 13:31) Unknown Nursing Note INR: 2.0 in therapeutic range of 2-3 Medications and supplements reviewed, no changes No changes in health, diet, medications, or supplements, Pt states he has to have 4 teeth removed. Has an appt with oral surgeon mid June. Denies any signs and symptoms of bleeding or bruising or clotting. Bleeding, bruising, clotting discussed Nutritional guidance given Dose: cont same dose of 5mg X2 days and 7.5mg X5 days F/U INR: 1 week Patient verbalizes understanding of instructions given Anti-Coag Initial Assessment Social Hx Patient Tobacco Use Status: Never used Tobacco alcohol intake: former Alcohol intake frequency: does not drink Cardiovascular Hx: HTN, CAD and CHF Lung Disease HX: DVT/PE and Other (VY- cpap) Endocrine Hx: Diabetes (pre diabetic) Musculoskeletal Hx: Arthritis and Gout Blood Disorder Hx: Anemia and Hyperlipidemia GI Hx: Bleeding (GI, rectal) (varices), Diverticulosis and Other (IBS with diarrhea) Neurological Hx: Stroke/TIA Cancer HX: No Psych. Illness/Depression: No Coding Level of Care Code Est Patient Level 1 Diagnoses Current use of anticoagulant therapy Z79.01 Assessment & Plan Assessment & Plan (1) Current use of anticoagulant therapy: Code(s): Z79.01 - terminal worker (current) use of anticoagulants Category: Medical
== END 2023-05-22 14:05 | disposition home or self-care (01) ==
LOC: HO.ACS 13:21
PROVIDERS: PCP Internal Medicine; Visit Provider Internal Medicine
DX: Z79.01 Long term (current) use of anticoagulants (principal)

== ENCOUNTER → 2023-05-22 13:21 | Outpatient (BNVA) | payer MEDICARE, BC, SELFPAY | PROVIDERS: PCP Internal Medicine; Visit Provider Internal Medicine | DX: I82.409 Acute embolism and thrombosis of unspecified deep veins of unspecified lower extremity (principal); Z79.01 Long term (current) use of anticoagulants; Z51.81 Encounter for therapeutic drug level monitoring | CPT/HCPCS: 85610; 99211 ==

== ENCOUNTER 2023-05-29 13:53 | Outpatient (AMB) | payer MEDICARE, BC, SELFPAY ==
[2023-05-29 14:08] LABS: Prothrombin Time Whole Bld POC 26.4 sec (11.1-13.5); ~PT, ~INR - Anti Coag Clinic 2.2 (0.9-1.1)
--- NOTE | 2023-05-29 14:19 | MHC.OFFVISCO ---
Intake Intake Visit Reasons: Anticoagulation Allergies lisinopril [LISINOPRIL] Allergy (Severe, Verified 05/29/23 14:03) TONGUE SWELLING, CONFUSION environmental allergies Allergy (Unknown, Verified 05/29/23 14:03) Unknown Medication List - Last Reconciled 05/29/23 by Fadumo Martinez, RN acetaminophen 650 mg PO BID allopurinol 300 mg PO DAILY amoxicillin 2,000 mg PO ONCE PRN ascorbic acid (vitamin C) (Vitamin C) 1 g PO DAILY atorvastatin 40 mg PO BEDTIME brimonidine 0.2% 1 drp ophthalmic-Left BID diphenhydramine HCl (Benadryl) 25 mg PO BEDTIME PRN dorzolamide-timolol 22.3-6.8 mg/mL 1 drp ophthalmic (eye) BEDTIME ferrous sulfate 325 mg PO DAILY furosemide (Lasix) 20 mg PO DAILY gabapentin 300 mg PO Q8H 90 days latanoprost 0.005% 1 drp ophthalmic (eye) BEDTIME metoprolol succinate ER 200 mg PO DAILY multivitamin 1 tab PO DAILY nifedipine ER 60 mg PO DAILY pantoprazole 40 mg PO DAILY 30 days warfarin 10 mg See Protocol PO DAILY 90 days Nursing Note INR: 2.2 in therapeutic range of 2-3 Medications and supplements reviewed, no changes No changes in health, diet, medications, or supplements, Denies any signs and symptoms of bleeding or bruising or clotting. Bleeding, bruising, clotting discussed Nutritional guidance given to continue to balance reds and greens Dose: cont same dose of 5mg X 2 days and 7.5mg X 5 days F/U INR: 2 weeks Patient verbalizes understanding of instructions given Anti-Coag Initial Assessment Social Hx Patient Tobacco Use Status: Never used Tobacco alcohol intake: former Alcohol intake frequency: does not drink Cardiovascular Hx: HTN, CAD and CHF Lung Disease HX: DVT/PE and Other (VY- cpap) Endocrine Hx: Diabetes (pre diabetic) Musculoskeletal Hx: Arthritis and Gout Blood Disorder Hx: Anemia and Hyperlipidemia GI Hx: Bleeding (GI, rectal) (varices), Diverticulosis and Other (IBS with diarrhea) Neurological Hx: Stroke/TIA Cancer HX: No Psych. Illness/Depression: No Coding Level of Care Code Est Patient Level 1 Diagnoses Current use of anticoagulant therapy Z79.01 Assessment & Plan Assessment & Plan (1) Current use of anticoagulant therapy: Code(s): Z79.01 - correction (current) use of anticoagulants Category: Medical
== END 2023-05-29 14:29 | disposition home or self-care (01) ==
LOC: HO.ACS 13:53
PROVIDERS: PCP Internal Medicine; Visit Provider Internal Medicine
DX: Z79.01 Long term (current) use of anticoagulants (principal)

== ENCOUNTER → 2023-05-29 13:53 | Outpatient (BNVA) | payer MEDICARE, BC, SELFPAY | PROVIDERS: PCP Internal Medicine; Visit Provider Internal Medicine | DX: I82.409 Acute embolism and thrombosis of unspecified deep veins of unspecified lower extremity (principal); Z79.01 Long term (current) use of anticoagulants; Z51.81 Encounter for therapeutic drug level monitoring | CPT/HCPCS: 85610; 99211 ==

== ENCOUNTER 2023-06-02 13:52 | Outpatient (AMB) | payer MEDICARE, BC, SELFPAY ==
[2023-06-02 13:57] VITALS: BP 132/70; PULSE 63; O2SAT 95; BMI 36.3
--- NOTE | 2023-06-02 13:57 | MHC.OFFVIS ---
Intake Vital Signs 06/02/23 13:57 Height 5 ft 7 in Weight 231 lb 7.766 oz BMI 36.3 BP 132/70 Blood Pressure Location Lt brachial Position Sitting Pulse 63 Pulse Source Pulse Oximeter Pulse Oximetry (%) 95 Oxygen Delivery Method Room Air Intake Visit Reasons: salas Intake Note: pt is here for follow up and had 3rd knee replacement and this one is moving slowly, no issues with breathing, using his cpap. Photographer Helper Required: No Allergies lisinopril [LISINOPRIL] Allergy (Severe, Verified 06/02/23 14:24) TONGUE SWELLING, CONFUSION environmental allergies Allergy (Unknown, Verified 06/02/23 14:24) Unknown Medication List - Last Reconciled 06/02/23 by Benjamin Amaya MD acetaminophen 650 mg PO BID allopurinol 300 mg PO DAILY amoxicillin 2,000 mg PO ONCE PRN ascorbic acid (vitamin C) (Vitamin C) 1 g PO DAILY atorvastatin 40 mg PO BEDTIME brimonidine 0.2% 1 drp ophthalmic-Left BID diphenhydramine HCl (Benadryl) 25 mg PO BEDTIME PRN dorzolamide-timolol 22.3-6.8 mg/mL 1 drp ophthalmic (eye) BEDTIME ferrous sulfate 325 mg PO DAILY furosemide (Lasix) 20 mg PO DAILY gabapentin 300 mg PO Q8H 90 days latanoprost 0.005% 1 drp ophthalmic (eye) BEDTIME metoprolol succinate ER 200 mg PO DAILY multivitamin 1 tab PO DAILY nifedipine ER 60 mg PO DAILY pantoprazole 40 mg PO DAILY 30 days warfarin 10 mg See Protocol PO DAILY 90 days Do you need a note to return to daycare/school/sports/work: No HPI salas HPI Details 68 YEARS OLD GENTLEMAN, COMES FOR 6 MONTHS FOLLOW-UP. HE IS A CASE OF GROSS OBESITY AND OBSTRUCTIVE SLEEP APNEA. HE IS USING HIS CPAP REGULARLY EVERY NIGHT, MAY MISS FOR 1 OR AT THE MOST 2 NIGHTS IN A WEEK, WHEN HE FORGETS TO PUT IT ON BEFORE GOING TO SLEEP. HE KEEPS IT ON AT LEAST FOR 4 TO 5 HOURS PER NIGHT. HE CLAIMS THAT HE SLEEPS WELL WITH THE CPAP. HIS CPAP MACHINE STILL DOES NOT TRANSMIT THE DATA OF RECORDING COMPLIANCE. HE IS ALSO TRYING TO LOSE WEIGHT SLOWLY. HAS HAD KNEE OPERATIONS AND STILL WALKING WITH A CANE SO HIS LEVEL OF ACTIVITY AND EXERCISE IS NOT THAT GOOD. [facility] Medical History (Updated 06/02/23 @ 14:34 by Benjamin Amaya MD) Obesity (BMI 30-39.9) Obesity (BMI 30-39.9) Internal derangement of right knee Environmental allergies SALAS on CPAP Multiple lacunar infarcts Transient alteration of awareness Routine medical exam History of TIA (transient ischemic attack) On beta miguel at home History of GI bleed Chronic right heart failure Nocturnal hypoxemia SALAS (obstructive sleep apnea) Chronic heart failure with preserved ejection fraction (HFpEF) Essential hypertension Obesity (BMI 30-39.9) C. difficile diarrhea Shoulder injury Lumbar spondylosis Chronic diarrhea History of alcoholism Idiopathic peripheral neuropathy Morbid obesity Pre-diabetes Diarrhea Arthritis Back pain History of Ezbzu-Ynrmqptbl-Vjgag (WPW) syndrome Gout Hiatal hernia History of esophageal varices GERD (gastroesophageal reflux disease) Ascending aorta dilation HTN (hypertension) Surgical History S/P PICC central line placement Hx of total knee replacement H/O cardiac radiofrequency ablation History of esophagogastroduodenoscopy (EGD) History of colonoscopy Family History Father Diabetes mellitus Social History Household Members: Significant Other and Family Household Members Other:: BROTHER Housing: House Housing Other:: lives with s/o and brother Are you a primary career development associate to a significant other at home: No Do you presently have visiting nurse or other home services: No Alcohol intake: former Year quit: 1998 Comment: aware of trip hazards Patient Tobacco Use Status: Never used Tobacco e-Cigarette/Vaping Use: Never Used Second Hand Smoke Exposure: Yes Advance Directives Date on File: 05/03/20 service: No Current occupational status: retired 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 Current occupational exposures/hazards: Yes Cognitive needs: No Hearing needs: No Vision needs: Yes Review of Systems Const All systems reviewed & are unremarkable except as noted in HPI and below Eyes Reports no additional complaints ENT Reports no additional complaints Card Denies chest pain, Denies irregular heart rhythm and Denies leg edema Resp Reports no additional complaints, Denies cough and Denies wheezing GI Reports constipation and Reports GI cramping (OFF AND ON) Reports no additional complaints Musc Reports back pain and Reports arthralgias (POST KNEE SURGERY, STILL WALKING WITH A WALKER.) Skin/Breast Reports system reviewed and no additional complaints, except as documented Neuro Reports no additional complaints Psych Reports no additional complaints Aller/Immun Denies wheezing Physical Exam Vital Signs: Last Vital Signs Pulse 63 06/02/23 13:57 BP 132/70 06/02/23 13:57 Pulse Ox 95 06/02/23 13:57 Oxygen Delivery Method Room Air 06/02/23 13:57 BMI result Body Mass Index 36.3 Const General: comfortable, no acute distress, alert and awake Orientation/consciousness: patient oriented x3 HEENT Head: Yes normal to inspection General nose exam: No nasal polyps present and No nasal discharge present Face and sinus: Yes sinuses nontender Mouth: oropharynx abnormals (NARROW AND CROWDED, MALLAMPATI CLASS 4) Throat: Yes posterior oropharynx normal Eyes General: appearance normal, both eyes and all related structures Neck Neck: Yes normal visual inspection, Yes no lymphadenopathy, Yes trachea midline and Yes no JVD Thyroid: Thyroid normal Chest Chest palpation & inspection: normal inspection of the chest, normal palpation of entire chest wall and no tenderness Resp Effort & Inspection: normal respiratory effort Auscultation: clear to auscultation bilaterally, no crackles and no wheezes Cardio Palpation: normal PMI Rate: regular rate Rhythm: regular rhythm Heart sounds: no gallops and no murmurs GI Palpation (GI): Soft to palpation, nontender, No hepatosplenomegaly present and no masses Auscultation: normal bowel sounds Back/Spine/Pelvis Thoracic/Lumbar Spine: thoracic and lumbar spine normal to inspection Skin General skin exam: no rashes or lesions noted Neuro General: patient oriented x3 and no focal motor deficits Cranial nerves: Yes CN's II-XII intact bilaterally Extrem Other: S/P RIGHT KNEE REPLACEMENT. SCAR IN ANTERIOR ASPECT WHICH IS WELL HEALED General: Yes normal to inspection, Yes no clubbing, cyanosis or edema and Yes no calf tenderness Psych Appearance: grossly normal and well kempt Speech and movement: Normal speech and movement present Assessment & Plan Assessment & Plan (1) Obesity (BMI 30-39.9): Comment: HE HAS HISTORY OF MORBID OBESITY BUT HAS GRADUALLY LOST SOME WEIGHT. STILL REMAINS GROSSLY OBESE. HE HAS NOT ABLE TO DO MUCH WALKING OR ANY EXERCISE, HE JUST TRYING TO WALK AROUND IN THE HOUSE, HE IS ALSO TRYING TO RESTRICT CALORIES INTAKE. HE IS GRADUALLY LOSING SOME WEIGHT. Code(s): E66.9 - Obesity, unspecified Plan: EDUCATED AND ENCOURAGED TO KEEP ON LOSING WEIGHT EVEN IF IT IS BY A FEW LB PER MONTH (2) SALAS (obstructive sleep apnea): Comment: MILD TO MODERATE DEGREE OF OBSTRUCTIVE SLEEP APNEA. PATIENT HAS BEEN ON THE CPAP AND WAS VERY COMPLIANT MOST OF THE TIME, EXCEPT WHEN HE IS TRAVELING OF OR ON SOME NIGHTS WHEN HE IS WORKING. COMPLIANCE DATA WAS NOT AVAILABLE BUT HE CLAIMS THAT HE USES EVERY NIGHT MISSING ONLY ONCE IN A WHILE. Code(s): G47.33 - Obstructive sleep apnea (adult) (pediatric) Plan: DISCUSSED AND ENCOURAGED TO USE IT EVERY NIGHT. WE WILL BE DISCUSSING WITH THE DME SUPPLIER TO SEE IF WE CAN DOWNLOAD THE COMPLIANCE DATA. (3) Nocturnal hypoxemia: Comment: PATIENT DID HAVE EVIDENCE OF NOCTURNAL. HYPOXEMIA ON HIS SLEEP STUDY THEN HE STARTED USING THE CPAP, REGULARLY AND IT WAS EXPECTED THAT THE NOCTURNAL HYPOXEMIA WOULD RESOLVE. HE DOES NOT HAVE OXYGEN AT HOME OVERNIGHT OXIMETRY RECORDING WHILE USING THE CPAP SHOWED THAT THERE WAS NO SIGNIFICANT NOCTURNAL HYPOXEMIA. Code(s): G47.34 - Idiopathic sleep related nonobstructive alveolar hypoventilation Plan: DOES NOT NEED TO USE OXYGEN ALONG WITH CPAP. Coding Level of Care Code Est Pt Level 3 (76172) Diagnoses Obesity (BMI 30-39.9) E66.9 SALAS (obstructive sleep apnea) G47.33 Nocturnal hypoxemia G47.34
== END 2023-06-02 14:22 | disposition home or self-care (01) ==
PROVIDERS: PCP Internal Medicine; Visit Provider Internal Medicine
DX: E66.9 Obesity, unspecified (principal); G47.33 Obstructive sleep apnea (adult) (pediatric); G47.34 Idiopathic sleep related nonobstructive alveolar hypoventilation
CPT/HCPCS: 99213

== ENCOUNTER → 2023-06-02 13:52 | Outpatient (BNVA) | payer BC, MEDICARE, SELFPAY | PROVIDERS: PCP Internal Medicine; Visit Provider Internal Medicine | DX: G47.33 Obstructive sleep apnea (adult) (pediatric) (principal); G47.34 Idiopathic sleep related nonobstructive alveolar hypoventilation; E66.9 Obesity, unspecified; Z68.36 Body mass index [BMI] 36.0-36.9, adult | CPT/HCPCS: 99212 ==

== ENCOUNTER 2023-06-16 09:22 | Outpatient (REF) | payer MEDICARE, BC, SELFPAY ==
--- NOTE | ~2023-06-16 | CT_ITS ---
EXAMINATION: CT ANGIOGRAM CHEST CLINICAL INFORMATION: Aortic aneurysm without rupture COMPARISON: CTA chest 04/02/2022 TECHNIQUE: Multiple axial images were obtained through the chest after the administration of 70 mL of intravenous Omnipaque. Images were evaluated on independent dedicated 3-D workstation and 3-D images were reconstructed with concurrent radiologist supervision and subsequently interpreted. This CT examination was performed using dose optimization techniques as appropriate, variously including the following: *Automated exposure control. *Adjustment of mA and/or kV according to patient size (this includes techniques or standardized protocols for targeted exams where dose is matched to indication/reason for exam, i.e., extremities or head). *Use of iterative reconstruction technique. DLP: 222 mGy-cm. FINDINGS: VASCULAR: Thoracic Aorta: The mid ascending aorta measures 4.7 cm, unchanged. Subclavian Arteries: Patent and normal in caliber Carotid and Vertebral Arteries: Patent and normal in caliber Abdominal Aorta: Patent and normal in caliber Pulmonary arteries: Patent, normal caliber without evidence of large, central pulmonary embolus All vascular measurements obtained from 3-D reconstructed images are detailed in PACS. NON-VASCULAR: Lungs: The lungs are clear with no evidence of inflammation or nodules. Mediastinum: The mediastinum is normal. Central vascular structures are unremarkable. No hilar or mediastinal lymphadenopathy. Pericardium/Pleura: There is no significant effusion. No pleural mass or thickening. Chest Wall/Axilla: Unremarkable. Upper Abdomen: Unremarkable Osseous Structures: Unremarkable. CT/CT angio chest aorta IMPRESSION: Unchanged ascending aortic aneurysm measuring 4.7 cm in diameter.
[2023-06-16] MEDS: iohexoL 350 MG/ML 100 ML INFUS..BTL IV (10:03)
[2023-06-16 13:51] LABS: Creatinine POC 0.8 mg/dL (0.5-1.4); GFR POC > 60
== END 2023-06-16 09:23 | disposition home or self-care (01) ==
LOC: HO.CT 09:22
PROVIDERS: PCP Internal Medicine; Visit Provider Internal Medicine
DX: I71.9 Aortic aneurysm of unspecified site, without rupture (principal); Z86.718 Personal history of other venous thrombosis and embolism; Z51.81 Encounter for therapeutic drug level monitoring; Z79.01 Long term (current) use of anticoagulants
CPT/HCPCS: 71275; 82565; 85610; 99211; Q9967

== ENCOUNTER 2023-06-16 10:03 | Outpatient (AMB) | payer MEDICARE, BC, SELFPAY ==
[2023-06-16 10:09] LABS: Prothrombin Time Whole Bld POC 30.3 sec (11.1-13.5); ~PT, ~INR - Anti Coag Clinic 2.5 (0.9-1.1)
--- NOTE | 2023-06-16 10:12 | MHC.OFFVISCO ---
Intake Intake Visit Reasons: Anticoagulation Allergies lisinopril [LISINOPRIL] Allergy (Severe, Verified 06/16/23 10:03) TONGUE SWELLING, CONFUSION environmental allergies Allergy (Unknown, Verified 06/16/23 10:03) Unknown Medication List - Last Reconciled 06/16/23 by Fadumo Martinez RN acetaminophen 650 mg PO BID allopurinol 300 mg PO DAILY amoxicillin 2,000 mg PO ONCE PRN ascorbic acid (vitamin C) (Vitamin C) 1 g PO DAILY atorvastatin 40 mg PO BEDTIME brimonidine 0.2% 1 drp ophthalmic-Left BID diphenhydramine HCl (Benadryl) 25 mg PO BEDTIME PRN dorzolamide-timolol 22.3-6.8 mg/mL 1 drp ophthalmic (eye) BEDTIME ferrous sulfate 325 mg PO DAILY furosemide (Lasix) 20 mg PO DAILY gabapentin 300 mg PO Q8H 90 days latanoprost 0.005% 1 drp ophthalmic (eye) BEDTIME metoprolol succinate ER 200 mg PO DAILY multivitamin 1 tab PO DAILY nifedipine ER 60 mg PO DAILY pantoprazole 40 mg PO DAILY 30 days warfarin 10 mg See Protocol PO DAILY 90 days Nursing Note INR: 2.5 in therapeutic range 2-3 Medications and supplements reviewed: no changes No changes in health, diet, medications, or supplements, Denies any signs and symptoms of bleeding or bruising or clotting. Bleeding, bruising, clotting discussed Nutritional guidance given to continue to balance reds and greens Dose: 7.5mg X 5 days and 5mg X 2 days F/U INR: 2 weeks Patient verbalizes understanding of instructions given Anti-Coag Initial Assessment Social Hx Patient Tobacco Use Status: Never used Tobacco alcohol intake: former Alcohol intake frequency: does not drink Cardiovascular Hx: HTN, CAD and CHF Lung Disease HX: DVT/PE and Other (VY- cpap) Endocrine Hx: Diabetes (pre diabetic) Musculoskeletal Hx: Arthritis and Gout Blood Disorder Hx: Anemia and Hyperlipidemia GI Hx: Bleeding (GI, rectal) (varices), Diverticulosis and Other (IBS with diarrhea) Neurological Hx: Stroke/TIA Cancer HX: No Psych. Illness/Depression: No Coding Level of Care Code Est Patient Level 1 Diagnoses Current use of anticoagulant therapy Z79.01 Assessment & Plan Assessment & Plan (1) Current use of anticoagulant therapy: Code(s): Z79.01 - intermediate card tender (current) use of anticoagulants Category: Medical
== END 2023-06-16 11:26 | disposition home or self-care (01) ==
LOC: HO.ACS 10:03
PROVIDERS: PCP Internal Medicine; Visit Provider Internal Medicine
DX: Z79.01 Long term (current) use of anticoagulants (principal)

== ENCOUNTER 2023-06-26 12:44 | Outpatient (AMB) | payer MEDICARE, BC, SELFPAY ==
[2023-06-26 12:52] VITALS: BP 140/72; PULSE 50; BMI 36.9
--- NOTE | 2023-06-26 12:52 | A.OFFVIS_ITS ---
Vital Signs 06/26/23 12:52 Height 5 ft 7 in Weight 235 lb 14.314 oz BMI 36.9 BP 140/72 H Blood Pressure Location Rt brachial Position Sitting Pulse 50 Pulse Source Pulse Oximeter Intake Visit Reasons: 6 month follow up Welcome Wagon Hostess Required: No Accompanied by: Self / Same As Patient Allergies lisinopril [LISINOPRIL] Allergy (Severe, Verified 06/16/23 10:03) TONGUE SWELLING, CONFUSION environmental allergies Allergy (Unknown, Verified 06/16/23 10:03) Unknown Medication List - Last Reconciled 06/26/23 by Otilio Shaffer MD acetaminophen 650 mg PO BID allopurinol 300 mg PO DAILY amoxicillin 2,000 mg PO ONCE PRN ascorbic acid (vitamin C) (Vitamin C) 1 g PO DAILY atorvastatin 40 mg PO BEDTIME brimonidine 0.2% 1 drp ophthalmic-Left BID diphenhydramine HCl (Benadryl) 25 mg PO BEDTIME PRN dorzolamide-timolol 22.3-6.8 mg/mL 1 drp ophthalmic (eye) BEDTIME ferrous sulfate 325 mg PO DAILY furosemide 20 mg PO DAILY gabapentin 300 mg PO Q8H 90 days latanoprost 0.005% 1 drp ophthalmic (eye) BEDTIME metoprolol succinate ER 200 mg PO DAILY multivitamin 1 tab PO DAILY nifedipine ER 60 mg PO DAILY pantoprazole 40 mg PO DAILY 30 days warfarin 10 mg See Protocol PO DAILY 90 days HPI Comments Details: Alek returns for follow-up regarding congestive heart failure as well as ascending aortic aneurysm. From the cardiac standpoint, he does not have any symptoms whatsoever. States he feels fine. Otherwise, history of WPW syndrome/ablation in 90, but no details available. [facility] Medical History (Updated 06/26/23 @ 13:08 by Otilio Shaffer MD) Obesity (BMI 30-39.9) Obesity (BMI 30-39.9) Internal derangement of right knee Environmental allergies VY on CPAP Multiple lacunar infarcts Transient alteration of awareness Routine medical exam History of TIA (transient ischemic attack) On beta miguel at home History of GI bleed Chronic right heart failure Nocturnal hypoxemia VY (obstructive sleep apnea) Chronic heart failure with preserved ejection fraction (HFpEF) Essential hypertension Obesity (BMI 30-39.9) C. difficile diarrhea Shoulder injury Lumbar spondylosis Chronic diarrhea History of alcoholism Idiopathic peripheral neuropathy Morbid obesity Pre-diabetes Diarrhea Arthritis Back pain History of Imtvm-Jrrmmvfvq-Ukwlw (WPW) syndrome Gout Hiatal hernia History of esophageal varices GERD (gastroesophageal reflux disease) Ascending aorta dilation HTN (hypertension) Surgical History S/P PICC central line placement Hx of total knee replacement H/O cardiac radiofrequency ablation History of esophagogastroduodenoscopy (EGD) History of colonoscopy Family History Father Diabetes mellitus Social History Household Members: Significant Other and Family Household Members Other:: BROTHER Housing: House Housing Other:: lives with s/o and brother Are you a primary health care technician to a significant other at home: No Do you presently have visiting nurse or other home services: No Alcohol intake: former Year quit: 1998 Comment: aware of trip hazards Patient Tobacco Use Status: Never used Tobacco e-Cigarette/Vaping Use: Never Used Second Hand Smoke Exposure: Yes Advance Directives Date on File: 05/03/20 service: No Current occupational status: retired 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 Current occupational exposures/hazards: Yes Cognitive needs: No Hearing needs: No Vision needs: Yes Review of Systems Const Denies chills, Denies fatigue, Denies fever(s), Denies frequent falls, Denies weakness, Denies weight gain and Denies weight loss ENT Denies dizziness Card Denies chest pain, Denies leg edema, Denies lightheadedness, Denies palpitations, Denies dyspnea and Denies dyspnea on exertion Resp Denies cough, Denies dyspnea and Denies dyspnea on exertion GI Denies hematochezia Musc Denies abnormal gait, Denies muscle weakness, Denies numbness, Denies radiating pain into limb and Denies tingling Neuro Denies abnormal gait, Denies dizziness, Denies frequent falls, Denies numbness, Denies tingling and Denies weakness Endo Denies fatigue and Denies palpitations Physical Exam Vital Signs: Last Vital Signs Pulse 50 06/26/23 12:52 BP 140/72 H 06/26/23 12:52 BMI result Body Mass Index 36.9 Const General: comfortable and no acute distress Orientation/consciousness: patient oriented x3 HEENT Other: Unremarkable Head: Yes normal to inspection Neck Neck: Yes normal visual inspection Chest Chest palpation & inspection: normal inspection of the chest Resp Auscultation: clear to auscultation bilaterally Cardio Palpation: normal PMI Heart sounds: S1 normal heart sound present, S2 normal heart sound present, no gallops, no murmurs and no rubs GI Palpation (GI): Soft to palpation Back/Spine/Pelvis Other: unremarkable Skin General skin exam: no rashes or lesions noted Neuro General: patient oriented x3 Extrem General: Yes normal to inspection Psych Mental Status: mental status grossly normal Assessment & Plan Assessment & Plan (1) Chronic right heart failure: Code(s): I50.812 - Chronic right heart failure Category: Medical Plan: Stable. Continue diuretics. (2) Coronary artery calcification seen on CAT scan: Code(s): I25.10 - Atherosclerotic heart disease of [place] coronary artery without angina pectoris Category: Medical Plan: CT chest shows coronary calcification. Myocardial perfusion imaging unremarkable. Continue statins. LDL is well controlled. Last couple of LDLs are 29 followed by 54. (3) Ascending aortic aneurysm: Code(s): I71.21 - Aneurysm of the ascending aorta, without rupture Category: Medical Plan: Ascending aortic size 4.7 cm on the recent CT scan. This is similar to prior studies. On the echocardiogram it was 4.5 cm. We will recheck in 6 months. (4) Essential hypertension: Code(s): I10 - Essential (primary) hypertension Category: Medical Plan: Borderline high today but he states he has not taken any of his medications as here. Importance of blood pressure control in the presence of aortic aneurysm discussed. He states he understands. (5) VY (obstructive sleep apnea): Code(s): G47.33 - Obstructive sleep apnea (adult) (pediatric) Category: Medical Plan: Continue CPAP. Orders: Orders CA echo limited 6 Months I71.21 - Aneurysm of the ascending aorta, without rupture
== END 2023-06-26 13:09 | disposition home or self-care (01) ==
PROVIDERS: PCP Internal Medicine; Visit Provider Internal Medicine
DX: I50.812 Chronic right heart failure (principal); I25.10 Atherosclerotic heart disease of native coronary artery without angina pectoris; I71.21 Aneurysm of the ascending aorta, without rupture; I10 Essential (primary) hypertension; G47.33 Obstructive sleep apnea (adult) (pediatric)
CPT/HCPCS: 99214

== ENCOUNTER → 2023-06-26 12:44 | Outpatient (BNVA) | payer MEDICARE, BC, SELFPAY | PROVIDERS: PCP Internal Medicine; Visit Provider Internal Medicine | DX: I71.21 Aneurysm of the ascending aorta, without rupture (principal); I25.10 Atherosclerotic heart disease of native coronary artery without angina pectoris; I11.0 Hypertensive heart disease with heart failure; I50.812 Chronic right heart failure; G47.33 Obstructive sleep apnea (adult) (pediatric); Z79.01 Long term (current) use of anticoagulants | CPT/HCPCS: 99212 ==

== ENCOUNTER 2023-07-01 11:23 | Outpatient (AMB) | payer MEDICARE, BC, SELFPAY ==
[2023-07-01 11:30] LABS: Prothrombin Time Whole Bld POC 31.2 sec (11.1-13.5); ~PT, ~INR - Anti Coag Clinic 2.6 (0.9-1.1)
--- NOTE | 2023-07-01 11:33 | MHC.OFFVISCO ---
Intake Intake Visit Reasons: Anticoagulation Allergies lisinopril [LISINOPRIL] Allergy (Severe, Verified 07/01/23 11:24) TONGUE SWELLING, CONFUSION environmental allergies Allergy (Unknown, Verified 07/01/23 11:24) Unknown Medication List - Last Reconciled 07/01/23 by Fadumo Martinez, RN acetaminophen 650 mg PO BID allopurinol 300 mg PO DAILY amoxicillin 2,000 mg PO ONCE PRN ascorbic acid (vitamin C) (Vitamin C) 1 g PO DAILY atorvastatin 40 mg PO BEDTIME brimonidine 0.2% 1 drp ophthalmic-Left BID diphenhydramine HCl (Benadryl) 25 mg PO BEDTIME PRN dorzolamide-timolol 22.3-6.8 mg/mL 1 drp ophthalmic (eye) BEDTIME ferrous sulfate 325 mg PO DAILY furosemide 20 mg PO DAILY gabapentin 300 mg PO Q8H 90 days latanoprost 0.005% 1 drp ophthalmic (eye) BEDTIME metoprolol succinate ER 200 mg PO DAILY multivitamin 1 tab PO DAILY nifedipine ER 60 mg PO DAILY pantoprazole 40 mg PO DAILY warfarin 10 mg See Protocol PO DAILY 90 days Nursing Note INR: 2.6 in therapeutic range of 2-3 Medications and supplements reviewed: no changes No changes in health, diet, medications, or supplements, Denies any signs and symptoms of bleeding or bruising or clotting. Bleeding, bruising, clotting discussed Nutritional guidance given to cont to balance reds and greens Dose: usual dose of 5mg X 2 days and 7.5mg X 5 days F/U INR: 2 weeks Patient verbalizes understanding of instructions given Anti-Coag Initial Assessment Social Hx Patient Tobacco Use Status: Never used Tobacco alcohol intake: former Alcohol intake frequency: does not drink Cardiovascular Hx: HTN, CAD and CHF Lung Disease HX: DVT/PE and Other (VY- cpap) Endocrine Hx: Diabetes (pre diabetic) Musculoskeletal Hx: Arthritis and Gout Blood Disorder Hx: Anemia and Hyperlipidemia GI Hx: Bleeding (GI, rectal) (varices), Diverticulosis and Other (IBS with diarrhea) Neurological Hx: Stroke/TIA Cancer HX: No Psych. Illness/Depression: No Coding Level of Care Code Est Patient Level 1 Diagnoses Current use of anticoagulant therapy Z79.01 Assessment & Plan Assessment & Plan (1) Current use of anticoagulant therapy: Code(s): Z79.01 - neurodiagnostic technologist (current) use of anticoagulants Category: Medical
== END 2023-07-01 11:35 | disposition home or self-care (01) ==
PROVIDERS: PCP Internal Medicine; Visit Provider Internal Medicine
DX: Z79.01 Long term (current) use of anticoagulants (principal)

== ENCOUNTER → 2023-07-01 11:23 | Outpatient (BNVA) | payer MEDICARE, BC, SELFPAY | PROVIDERS: PCP Internal Medicine; Visit Provider Internal Medicine | DX: Z86.73 Personal history of transient ischemic attack (TIA), and cerebral infarction without residual deficits (principal); Z86.718 Personal history of other venous thrombosis and embolism; Z79.01 Long term (current) use of anticoagulants; Z51.81 Encounter for therapeutic drug level monitoring | CPT/HCPCS: 85610; 99211 ==

== ENCOUNTER 2023-07-15 13:00 | Outpatient (AMB) | payer MEDICARE, BC, SELFPAY ==
--- NOTE | 2023-07-15 13:09 | MHC.OFFVISCO ---
Intake Intake Visit Reasons: Anticoagulation Allergies lisinopril [LISINOPRIL] Allergy (Severe, Verified 07/15/23 13:05) TONGUE SWELLING, CONFUSION environmental allergies Allergy (Unknown, Verified 07/15/23 13:05) Unknown Medication List - Last Reconciled 07/15/23 by Dana Wiseman RN acetaminophen 650 mg PO BID allopurinol 300 mg PO DAILY amoxicillin 2,000 mg PO ONCE PRN ascorbic acid (vitamin C) (Vitamin C) 1 g PO DAILY atorvastatin 40 mg PO BEDTIME brimonidine 0.2% 1 drp ophthalmic-Left BID diphenhydramine HCl (Benadryl) 25 mg PO BEDTIME PRN dorzolamide-timolol 22.3-6.8 mg/mL 1 drp ophthalmic (eye) BEDTIME ferrous sulfate 325 mg PO DAILY furosemide 20 mg PO DAILY gabapentin 300 mg PO Q8H 90 days latanoprost 0.005% 1 drp ophthalmic (eye) BEDTIME metoprolol succinate ER 200 mg PO DAILY multivitamin 1 tab PO DAILY nifedipine ER 60 mg PO DAILY pantoprazole 40 mg PO DAILY warfarin 10 mg See Protocol PO DAILY 90 days Nursing Note INR: 2.5- in therapeutic range of 2-3 Medications and supplements reviewed- no changes No changes in health, diet, medications, or supplements, Denies any signs and symptoms of bleeding or bruising or clotting. Bleeding, bruising, clotting discussed Nutritional guidance given Dose: 5mg x 2, 7.5mg x 5 F/U INR: 3 weeks Patient verbalizes understanding of instructions given pt states upcoming dental extraction-? Oct. aware to ? hold warfarin and will require INR check prior Anti-Coag Initial Assessment Social Hx Patient Tobacco Use Status: Never used Tobacco alcohol intake: former Alcohol intake frequency: does not drink Cardiovascular Hx: HTN, CAD and CHF Lung Disease HX: DVT/PE and Other (VY- cpap) Endocrine Hx: Diabetes (pre diabetic) Musculoskeletal Hx: Arthritis and Gout Blood Disorder Hx: Anemia and Hyperlipidemia GI Hx: Bleeding (GI, rectal) (varices), Diverticulosis and Other (IBS with diarrhea) Neurological Hx: Stroke/TIA Cancer HX: No Psych. Illness/Depression: No Coding Level of Care Code Est Patient Level 1 Diagnoses Current use of anticoagulant therapy Z79.01 Assessment & Plan Assessment & Plan (1) Current use of anticoagulant therapy: Code(s): Z79.01 - [facility] (current) use of anticoagulants Category: Medical
[2023-07-15 13:10] LABS: Prothrombin Time Whole Bld POC 30.5 sec (11.1-13.5); ~PT, ~INR - Anti Coag Clinic 2.5 (0.9-1.1)
== END 2023-07-15 13:18 | disposition home or self-care (01) ==
LOC: HO.ACS 13:00
PROVIDERS: PCP Internal Medicine; Visit Provider Internal Medicine
DX: Z79.01 Long term (current) use of anticoagulants (principal)

== ENCOUNTER → 2023-07-15 13:00 | Outpatient (BNVA) | payer MEDICARE, BC, SELFPAY | PROVIDERS: PCP Internal Medicine; Visit Provider Internal Medicine | DX: I82.409 Acute embolism and thrombosis of unspecified deep veins of unspecified lower extremity (principal); Z51.81 Encounter for therapeutic drug level monitoring; Z79.01 Long term (current) use of anticoagulants | CPT/HCPCS: 85610; 99211 ==

== ENCOUNTER 2023-08-05 13:10 | Outpatient (AMB) | payer MEDICARE, BC, SELFPAY ==
[2023-08-05 13:30] LABS: Prothrombin Time Whole Bld POC 32.9 sec (11.1-13.5); ~PT, ~INR - Anti Coag Clinic 2.7 (0.9-1.1)
--- NOTE | 2023-08-05 13:35 | MHC.OFFVISCO ---
Intake Intake Visit Reasons: Anticoagulation Allergies lisinopril [LISINOPRIL] Allergy (Severe, Verified 08/05/23 13:25) TONGUE SWELLING, CONFUSION environmental allergies Allergy (Unknown, Verified 08/05/23 13:25) Unknown Medication List - Last Reconciled 08/05/23 by Fadumo Martinez RN acetaminophen 650 mg PO BID allopurinol 300 mg PO DAILY amoxicillin 2,000 mg PO ONCE PRN ascorbic acid (vitamin C) (Vitamin C) 1 g PO DAILY atorvastatin 40 mg PO BEDTIME brimonidine 0.2% 1 drp ophthalmic-Left BID diphenhydramine HCl (Benadryl) 25 mg PO BEDTIME PRN dorzolamide-timolol 22.3-6.8 mg/mL 1 drp ophthalmic (eye) BEDTIME ferrous sulfate 325 mg PO DAILY furosemide 20 mg PO DAILY gabapentin 300 mg PO Q8H 90 days latanoprost 0.005% 1 drp ophthalmic (eye) BEDTIME metoprolol succinate ER 200 mg PO DAILY multivitamin 1 tab PO DAILY nifedipine ER 60 mg PO DAILY pantoprazole 40 mg PO DAILY warfarin 10 mg See Protocol PO DAILY 90 days Nursing Note INR: 2.7 in therapeutic range of 2-3 Medications and supplements reviewed: no changes No changes in health, diet, medications, or supplements, Denies any signs and symptoms of bleeding or bruising or clotting. Bleeding, bruising, clotting discussed Nutritional guidance given to review the food list and balance reds and greens Dose: cont usual dose of 5mg X 2 days and 7.5mg X 5 days F/U INR: 1 month Patient verbalizes understanding of instructions given Anti-Coag Initial Assessment Social Hx Patient Tobacco Use Status: Never used Tobacco alcohol intake: former Alcohol intake frequency: does not drink Cardiovascular Hx: HTN, CAD and CHF Lung Disease HX: DVT/PE and Other (VY- cpap) Endocrine Hx: Diabetes (pre diabetic) Musculoskeletal Hx: Arthritis and Gout Blood Disorder Hx: Anemia and Hyperlipidemia GI Hx: Bleeding (GI, rectal) (varices), Diverticulosis and Other (IBS with diarrhea) Neurological Hx: Stroke/TIA Cancer HX: No Psych. Illness/Depression: No Coding Level of Care Code Est Patient Level 1 Diagnoses Current use of anticoagulant therapy Z79.01 Assessment & Plan Assessment & Plan (1) Current use of anticoagulant therapy: Code(s): Z79.01 - long-term (current) use of anticoagulants Category: Medical
== END 2023-08-05 13:37 | disposition home or self-care (01) ==
LOC: HO.ACS 13:10
PROVIDERS: PCP Internal Medicine; Visit Provider Internal Medicine
DX: Z79.01 Long term (current) use of anticoagulants (principal)

== ENCOUNTER → 2023-08-05 13:10 | Outpatient (BNVA) | payer MEDICARE, BC, SELFPAY | PROVIDERS: PCP Internal Medicine; Visit Provider Internal Medicine | DX: I82.409 Acute embolism and thrombosis of unspecified deep veins of unspecified lower extremity (principal); Z79.01 Long term (current) use of anticoagulants; Z51.81 Encounter for therapeutic drug level monitoring | CPT/HCPCS: 85610; 99211 ==

== ENCOUNTER 2023-09-02 13:03 | Outpatient (AMB) | payer MEDICARE, BC, SELFPAY ==
[2023-09-02 13:15] LABS: Prothrombin Time Whole Bld POC 33.6 sec (11.1-13.5); ~PT, ~INR - Anti Coag Clinic 2.8 (0.9-1.1)
--- NOTE | 2023-09-02 13:18 | MHC.OFFVISCO ---
Intake Intake Visit Reasons: Anticoagulation Allergies lisinopril [LISINOPRIL] Allergy (Severe, Verified 09/02/23 13:10) TONGUE SWELLING, CONFUSION environmental allergies Allergy (Unknown, Verified 09/02/23 13:10) Unknown Medication List - Last Reconciled 09/02/23 by Fadumo De Jesus RN acetaminophen 650 mg PO BID allopurinol 300 mg PO DAILY amoxicillin 2,000 mg PO ONCE PRN ascorbic acid (vitamin C) (Vitamin C) 1 g PO DAILY atorvastatin 40 mg PO BEDTIME brimonidine 0.2% 1 drp ophthalmic-Left BID diphenhydramine HCl (Benadryl) 25 mg PO BEDTIME PRN dorzolamide-timolol 22.3-6.8 mg/mL 1 drp ophthalmic (eye) BEDTIME ferrous sulfate 325 mg PO DAILY furosemide 20 mg PO DAILY gabapentin 300 mg PO Q8H 90 days latanoprost 0.005% 1 drp ophthalmic (eye) BEDTIME metoprolol succinate ER 200 mg PO DAILY multivitamin 1 tab PO DAILY nifedipine ER 60 mg PO DAILY pantoprazole 40 mg PO DAILY warfarin 10 mg See Protocol PO DAILY 90 days Nursing Note Amb to ACS using cane, feeling well today Medications and supplements reviewed No changes in health, diet, medications, or supplements, Denies any signs and symptoms of bleeding, bruising, or clotting. Bleeding, bruising, clotting discussed INR 2.8 in therapeutic range Dose: continue usual dose- 5mg x 2 days and 7.5mg x 5 days balance greens and reds in diet,be consistent F/U INR: 4 weeks Patient verbalizes understanding of instructions given Anti-Coag Initial Assessment Social Hx Patient Tobacco Use Status: Never used Tobacco alcohol intake: former Alcohol intake frequency: does not drink Cardiovascular Hx: HTN, CAD and CHF Lung Disease HX: DVT/PE and Other (VY- cpap) Endocrine Hx: Diabetes (pre diabetic) Musculoskeletal Hx: Arthritis and Gout Blood Disorder Hx: Anemia and Hyperlipidemia GI Hx: Bleeding (GI, rectal) (varices), Diverticulosis and Other (IBS with diarrhea) Neurological Hx: Stroke/TIA Cancer HX: No Psych. Illness/Depression: No Questionnaires HAS-BLED Does the patient had uncontrolled Hypertension?: No Does the patient have renal disease?: No Does the patient have liver disease?: No Does the patient have a history of stroke?: Yes Has the patient had major bleeding or predisposition to bleeding?: Yes Does the patient have labile INRs?: No Is the patient over 65 years of age?: Yes Is the patient on medications that gives them a predisposition to bleeding?: Yes Does the patient use alcohol?: No HAS-BLED Score: 4 CHADSVASC Age: 66-74 Gender: Male Does the patient have a history of CHF?: Yes Does the patient have a history of Hypertension?: Yes Does the patient have a history of Stroke/TIA/Thromboembolism?: Yes Does the patient have a history of Vascular Disease (prior NH, PAD or aortic plaque)?: No Does the patient have a history of Diabetes?: No CHADS VACS Score: 5 Marian Prediction Score Rsk VTE Active Cancer: No Previous VTE, excluding superficial vein thrombosis: Yes Reduced mobility: No Already known Thrombophilic Condition: Yes With-in last month Trauma and/or Surgery: No Elderly 70 year or older: No Heart and/or Respiratory Failure: Yes Acute Myocardial infarction and/or Ischemic Stroke: Yes Acute Infection and/or Rheumatologic Disorder: No Obesity (BMI 30 or greater): Yes Ongoing Hormonal Treatment: No Score: 9 Marina Score less than 4; Low Risk of VTE Marian Score 4 or greater; High Risk of VTE Coding Level of Care Code Est Patient Level 1 Diagnoses Current use of anticoagulant therapy Z79.01 Time Spent (min) 15 Assessment & Plan Assessment & Plan (1) Current use of anticoagulant therapy: Code(s): Z79.01 - [facility] (current) use of anticoagulants Category: Medical
== END 2023-09-02 13:26 | disposition home or self-care (01) ==
LOC: HO.ACS 13:03
PROVIDERS: PCP Internal Medicine; Visit Provider Internal Medicine
DX: Z79.01 Long term (current) use of anticoagulants (principal)

== ENCOUNTER → 2023-09-02 13:03 | Outpatient (BNVA) | payer MEDICARE, BC, SELFPAY | PROVIDERS: PCP Internal Medicine; Visit Provider Internal Medicine | DX: Z86.718 Personal history of other venous thrombosis and embolism (principal); Z79.01 Long term (current) use of anticoagulants; Z51.81 Encounter for therapeutic drug level monitoring | CPT/HCPCS: 85610; 99211 ==

== ENCOUNTER 2023-10-07 13:44 | Outpatient (AMB) | payer MEDICARE, BC, SELFPAY ==
--- NOTE | 2023-10-07 13:49 | MHC.OFFVISCO ---
Intake Intake Visit Reasons: Anticoagulation Allergies lisinopril [LISINOPRIL] Allergy (Severe, Verified 10/07/23 13:45) TONGUE SWELLING, CONFUSION environmental allergies Allergy (Unknown, Verified 10/07/23 13:45) Unknown Nursing Note INR 1.9-?? out of therapeutic range 2-3 Medications and supplements reviewed Patient status: amb with cane, c.o back pain - using lidocain patch Medications or supplements: no changes Diet: same Denies any signs and symptoms of bleeding or clotting or unusual bruising Bleeding, bruising, clotting discussed Nutritional guidance given: no greens for 2 days, eat a red today Dose: 10mg today then 7.5mg x 5, 5mg x 2 F/U INR Date : 2 weeks Patient verbalizing understanding of instructions given. Anti-Coag Initial Assessment Social Hx Patient Tobacco Use Status: Never used Tobacco alcohol intake: former Alcohol intake frequency: does not drink Cardiovascular Hx: HTN, CAD and CHF Lung Disease HX: DVT/PE and Other (VY- cpap) Endocrine Hx: Diabetes (pre diabetic) Musculoskeletal Hx: Arthritis and Gout Blood Disorder Hx: Anemia and Hyperlipidemia GI Hx: Bleeding (GI, rectal) (varices), Diverticulosis and Other (IBS with diarrhea) Neurological Hx: Stroke/TIA Cancer HX: No Psych. Illness/Depression: No Coding Level of Care Code Est Patient Level 1 Diagnoses Current use of anticoagulant therapy Z79.01 Assessment & Plan Assessment & Plan (1) Current use of anticoagulant therapy: Code(s): Z79.01 - [facility] loader (current) use of anticoagulants Category: Medical
[2023-10-07 13:50] LABS: Prothrombin Time Whole Bld POC 22.8 sec (11.1-13.5); ~PT, ~INR - Anti Coag Clinic 1.9 (0.9-1.1)
== END 2023-10-07 13:59 | disposition home or self-care (01) ==
LOC: HO.ACS 13:44
PROVIDERS: PCP Internal Medicine; Visit Provider Internal Medicine
DX: Z79.01 Long term (current) use of anticoagulants (principal)

== ENCOUNTER → 2023-10-07 13:44 | Outpatient (BNVA) | payer MEDICARE, BC, SELFPAY | PROVIDERS: PCP Internal Medicine; Visit Provider Internal Medicine | DX: Z86.73 Personal history of transient ischemic attack (TIA), and cerebral infarction without residual deficits (principal); Z86.718 Personal history of other venous thrombosis and embolism; Z79.01 Long term (current) use of anticoagulants; Z51.81 Encounter for therapeutic drug level monitoring | CPT/HCPCS: 85610; 99211 ==

== ENCOUNTER 2023-10-22 13:23 | Outpatient (AMB) | payer MEDICARE, BC, SELFPAY ==
[2023-10-22 13:31] LABS: Prothrombin Time Whole Bld POC 28.2 sec (11.1-13.5); ~PT, ~INR - Anti Coag Clinic 2.3 (0.9-1.1)
--- NOTE | 2023-10-22 13:36 | MHC.OFFVISCO ---
Intake Intake Visit Reasons: Anticoagulation Allergies lisinopril [LISINOPRIL] Allergy (Severe, Verified 10/22/23 13:26) TONGUE SWELLING, CONFUSION environmental allergies Allergy (Unknown, Verified 10/22/23 13:26) Unknown Medication List - Last Reconciled 10/22/23 by Fadumo Martinez, RN acetaminophen 650 mg PO BID allopurinol 300 mg PO DAILY amoxicillin 2,000 mg PO ONCE PRN ascorbic acid (vitamin C) (Vitamin C) 1 g PO DAILY atorvastatin 40 mg PO BEDTIME brimonidine 0.2% 1 drp ophthalmic-Left BID diphenhydramine HCl (Benadryl) 25 mg PO BEDTIME PRN dorzolamide-timolol 22.3-6.8 mg/mL 1 drp ophthalmic (eye) BEDTIME ferrous sulfate 325 mg PO DAILY furosemide 20 mg PO DAILY gabapentin 300 mg PO Q8H 90 days latanoprost 0.005% 1 drp ophthalmic (eye) BEDTIME metoprolol succinate ER 200 mg PO DAILY multivitamin 1 tab PO DAILY nifedipine ER 60 mg PO DAILY pantoprazole 40 mg PO DAILY warfarin 10 mg See Protocol PO DAILY 90 days Nursing Note INR: 2.3 in therapeutic range of 2-3 Medications and supplements reviewed No changes in health, diet, medications, or supplements, Denies any signs and symptoms of bleeding or bruising or clotting. Bleeding, bruising, clotting discussed Nutritional guidance given to continue to balance reds and greens Dose: 7.5mg X 5 days and 5mg X 2 days F/U INR: 4 weeks Patient verbalizes understanding of instructions given Anti-Coag Initial Assessment Social Hx Patient Tobacco Use Status: Never used Tobacco alcohol intake: former Alcohol intake frequency: does not drink Cardiovascular Hx: HTN, CAD and CHF Lung Disease HX: DVT/PE and Other (VY- cpap) Endocrine Hx: Diabetes (pre diabetic) Musculoskeletal Hx: Arthritis and Gout Blood Disorder Hx: Anemia and Hyperlipidemia GI Hx: Bleeding (GI, rectal) (varices), Diverticulosis and Other (IBS with diarrhea) Neurological Hx: Stroke/TIA Cancer HX: No Psych. Illness/Depression: No Coding Level of Care Code Est Patient Level 1 Diagnoses Current use of anticoagulant therapy Z79.01 Assessment & Plan Assessment & Plan (1) Current use of anticoagulant therapy: Code(s): Z79.01 - [facility] (current) use of anticoagulants Category: Medical
== END 2023-10-22 13:38 | disposition home or self-care (01) ==
LOC: HO.ACS 13:23
PROVIDERS: PCP Internal Medicine; Visit Provider Internal Medicine
DX: Z79.01 Long term (current) use of anticoagulants (principal)

== ENCOUNTER → 2023-10-22 13:23 | Outpatient (BNVA) | payer MEDICARE, BC, SELFPAY | PROVIDERS: PCP Internal Medicine; Visit Provider Internal Medicine | DX: Z86.73 Personal history of transient ischemic attack (TIA), and cerebral infarction without residual deficits (principal); Z86.718 Personal history of other venous thrombosis and embolism; Z51.81 Encounter for therapeutic drug level monitoring; Z79.01 Long term (current) use of anticoagulants | CPT/HCPCS: 85610; 99211 ==

== ENCOUNTER 2023-11-03 13:31 | Outpatient (AMB) | payer MEDICARE, BC, SELFPAY ==
--- NOTE | 2023-11-03 13:35 | MHC.OFFVIS ---
Vital Signs 11/03/23 13:36 Height 5 ft 7 in Weight 240 lb 4.862 oz BMI 37.6 BP 103/56 L Blood Pressure Location Lt brachial Position Sitting Pulse 57 Intake Visit Reasons: 6 month f/u Intake Note: Alek presents in the office as a 6 month follow up. CC: He states that he is not having any concerns today. Allergies lisinopril [LISINOPRIL] Allergy (Severe, Verified 11/03/23 13:37) TONGUE SWELLING, CONFUSION environmental allergies Allergy (Unknown, Verified 11/03/23 13:37) Unknown HPI HPI 6 month f/u: Details: 68 yr old m being called for f/u RECAP: He had diarrhea and had c diff pos initially treated with flagyl but not better then on vancomycin and completed course he still has diarrhea has to take imodium to control it otherwise it can be bad his brother did have c diff as well Due to his ongoing sx I did re order c diff testing EGd/colon- 12/2019--barretts and tubular adenomas repeat C diff 08/2020--negative INTERIM: generally well no abdominal pain, no nausea or vomiting appetite is good knee is much better, cane still being used slow recovery from knee surgery still takes probiotics when can afford still taking coumadin still taking pantoprazole EXAM: GENERAL: The patient is well developed and nontoxic. VITAL SIGNS:see workflow HEENT: Nonicteric sclerae, PERRLA, EOMI. Oropharynx clear. Moist mucous membranes. Conjunctivae appear well perfused. No thyroid mass. CHEST: Chest wall is nontender. HEART: Regular rate and rhythm without murmurs. LUNGS: Clear to auscultation bilaterally. ABDOMEN: Soft, positive bowel sounds, nontender, no organomegaly.no flank tenderness SKIN: No rash, no excessive bruising, petechiae, or purpura. NEUROLOGIC: Cranial nerves II-XII intact without motor/sensory deficit. Psych: normal affect A/P: 1/ Hx of colon polyps 2/ barretts esophagus with inflammation, chronic PLAN 1/ repeat EGD with tissue cypher and wats 2/ repeat colonoscopy--suprep, will need to hold coumadin for 3 d before 3/ cont ppi with MV and vit D supplement PFSH Medical History Obesity (BMI 30-39.9) Obesity (BMI 30-39.9) Internal derangement of right knee Environmental allergies VY on CPAP Multiple lacunar infarcts Transient alteration of awareness Routine medical exam History of TIA (transient ischemic attack) On beta miguel at home History of GI bleed Chronic right heart failure Nocturnal hypoxemia VY (obstructive sleep apnea) Chronic heart failure with preserved ejection fraction (HFpEF) Essential hypertension Obesity (BMI 30-39.9) C. difficile diarrhea Shoulder injury Lumbar spondylosis Chronic diarrhea History of alcoholism Idiopathic peripheral neuropathy Morbid obesity Pre-diabetes Diarrhea Arthritis Back pain History of Sxltt-Ouzgmxyqw-Mpqlk (WPW) syndrome Gout Hiatal hernia History of esophageal varices GERD (gastroesophageal reflux disease) Ascending aorta dilation HTN (hypertension) Surgical History S/P PICC central line placement Hx of total knee replacement H/O cardiac radiofrequency ablation History of esophagogastroduodenoscopy (EGD) History of colonoscopy Family History Father Diabetes mellitus Social History Household Members: Significant Other and Family Household Members Other:: BROTHER Housing: House Housing Other:: lives with s/o and brother Are you a primary hospice home care coordinator to a significant other at home: No Do you presently have visiting nurse or other home services: No Alcohol intake: former Year quit: 1998 Comment: aware of trip hazards Patient Tobacco Use Status: Never used Tobacco e-Cigarette/Vaping Use: Never Used Second Hand Smoke Exposure: Yes Advance Directives Date on File: 05/03/20 service: No Current occupational status: retired 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
[2023-11-03 13:36] VITALS: BP 103/56; PULSE 57; BMI 37.6
== END 2023-11-03 13:55 | disposition home or self-care (01) ==
PROVIDERS: PCP Internal Medicine; Visit Provider Internal Medicine Gastroenterology
DX: K22.70 Barrett's esophagus without dysplasia (principal); K63.5 Polyp of colon
CPT/HCPCS: 99214

== ENCOUNTER → 2023-11-03 13:31 | Outpatient (BNVA) | payer MEDICARE, BC, SELFPAY | PROVIDERS: PCP Internal Medicine; Visit Provider Internal Medicine Gastroenterology | DX: K22.70 Barrett's esophagus without dysplasia (principal); K63.5 Polyp of colon | CPT/HCPCS: 99212 ==

== ENCOUNTER 2023-11-11 10:26 | Outpatient (AMB) | payer MEDICARE, BC, SELFPAY ==
--- NOTE | 2023-11-11 10:41 | MHC.OFFVIS ---
Vital Signs 11/11/23 10:42 Height 5 ft 7 in Weight 240 lb BMI 37.6 BP 114/72 Blood Pressure Location Rt brachial Position Sitting Respiration 16 Pulse 63 Pulse Source Pulse Oximeter Pulse Oximetry (%) 97 Oxygen Delivery Method Room Air Intake Visit Reasons: 1yr FOLLOW UP Cerebral Infarction Intake Note: Pt presents for a one year follow up for cerebral infarction. Enterprise Systems Engineer Required: No Allergies lisinopril [LISINOPRIL] Allergy (Severe, Verified 11/11/23 10:41) TONGUE SWELLING, CONFUSION environmental allergies Allergy (Unknown, Verified 11/11/23 10:41) Unknown [facility] Medical History Obesity (BMI 30-39.9) Obesity (BMI 30-39.9) Internal derangement of right knee Environmental allergies VY on CPAP Multiple lacunar infarcts Transient alteration of awareness Routine medical exam History of TIA (transient ischemic attack) On beta miguel at home History of GI bleed Chronic right heart failure Nocturnal hypoxemia VY (obstructive sleep apnea) Chronic heart failure with preserved ejection fraction (HFpEF) Essential hypertension Obesity (BMI 30-39.9) C. difficile diarrhea Shoulder injury Lumbar spondylosis Chronic diarrhea History of alcoholism Idiopathic peripheral neuropathy Morbid obesity Pre-diabetes Diarrhea Arthritis Back pain History of Ndjow-Uiiabyrld-Hcviu (WPW) syndrome Gout Hiatal hernia History of esophageal varices GERD (gastroesophageal reflux disease) Ascending aorta dilation HTN (hypertension) Surgical History S/P PICC central line placement Hx of total knee replacement H/O cardiac radiofrequency ablation History of esophagogastroduodenoscopy (EGD) History of colonoscopy Family History Father Diabetes mellitus Social History Household Members: Significant Other and Family Household Members Other:: BROTHER Housing: House Housing Other:: lives with s/o and brother Are you a primary rehab care assistant to a significant other at home: No Do you presently have visiting nurse or other home services: No Alcohol intake: former Year quit: 1998 Comment: aware of trip hazards Patient Tobacco Use Status: Never used Tobacco e-Cigarette/Vaping Use: Never Used Second Hand Smoke Exposure: Yes Advance Directives Date on File: 05/03/20 service: No Current occupational status: retired 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
[2023-11-11 10:42] VITALS: BP 114/72; PULSE 63; RESP 16; O2SAT 97; BMI 37.6
--- NOTE | 2023-11-11 10:55 | MHC.OFFVIS ---
Vital Signs 11/11/23 10:42 Height 5 ft 7 in Weight 240 lb BMI 37.6 BP 114/72 Blood Pressure Location Rt brachial Position Sitting Respiration 16 Pulse 63 Pulse Source Pulse Oximeter Pulse Oximetry (%) 97 Oxygen Delivery Method Room Air Intake Visit Reasons: 1yr FOLLOW UP Cerebral Infarction Allergies lisinopril [LISINOPRIL] Allergy (Severe, Verified 11/11/23 10:41) TONGUE SWELLING, CONFUSION environmental allergies Allergy (Unknown, Verified 11/11/23 10:41) Unknown HPI Comments Details: .?68 year-old male with history of congestive heart failure, arthritis, GERD, hypertension, obesity comes for follow up. No episodes of confusion . He had knee surgery and is on PT. Carotid doppler is normal. He is using his CPAP regularly. [facility] Medical History Obesity (BMI 30-39.9) Obesity (BMI 30-39.9) Internal derangement of right knee Environmental allergies VY on CPAP Multiple lacunar infarcts Transient alteration of awareness Routine medical exam History of TIA (transient ischemic attack) On beta miguel at home History of GI bleed Chronic right heart failure Nocturnal hypoxemia VY (obstructive sleep apnea) Chronic heart failure with preserved ejection fraction (HFpEF) Essential hypertension Obesity (BMI 30-39.9) C. difficile diarrhea Shoulder injury Lumbar spondylosis Chronic diarrhea History of alcoholism Idiopathic peripheral neuropathy Morbid obesity Pre-diabetes Diarrhea Arthritis Back pain History of Lwmfi-Oghwzlhvg-Iqfar (WPW) syndrome Gout Hiatal hernia History of esophageal varices GERD (gastroesophageal reflux disease) Ascending aorta dilation HTN (hypertension) Surgical History S/P PICC central line placement Hx of total knee replacement H/O cardiac radiofrequency ablation History of esophagogastroduodenoscopy (EGD) History of colonoscopy Family History Father Diabetes mellitus Social History Household Members: Significant Other and Family Household Members Other:: BROTHER Housing: House Housing Other:: lives with s/o and brother Are you a primary critical care paramedic to a significant other at home: No Do you presently have visiting nurse or other home services: No Alcohol intake: former Year quit: 1998 Comment: aware of trip hazards Patient Tobacco Use Status: Never used Tobacco e-Cigarette/Vaping Use: Never Used Second Hand Smoke Exposure: Yes Advance Directives Date on File: 05/03/20 service: No Current occupational status: retired 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 Current occupational exposures/hazards: Yes Cognitive needs: No Hearing needs: No Vision needs: Yes Physical Exam Vital Signs: Last Vital Signs Pulse 63 11/11/23 10:42 Resp 16 11/11/23 10:42 BP 114/72 11/11/23 10:42 Pulse Ox 97 11/11/23 10:42 Oxygen Delivery Method Room Air 11/11/23 10:42 BMI result Body Mass Index 37.6 Const General: cooperative, comfortable and no acute distress Nutritional Appearance: obese Orientation/consciousness: patient oriented x3 Limitations: wheelchair Eyes Pupils: Equal, round and reactive pupils present Neuro General: patient oriented x3, tone normal, moves all extremities and no focal motor deficits Cranial nerves: Yes Facial sensation intact/muscles of mastication intact, Yes Equal, round and reactive pupils present, Yes Nystagmus not present, Yes Normal facial strength present, Yes Midline tongue present and Yes Symmetric palate elevation present Cognition (Neuro): normal cognition Gait exam (Neuro): Antalgic gait present and Assistive device used Coordination: [id number] test normal Quality Reporting (2019) Adult ([facility] [birth year]) Body Mass Index: 37.6 Assessment & Plan Assessment & Plan (1) Transient alteration of awareness: Comment: It is not clear if the episode 4 mths ago was a TIA- could be related to delsym Code(s): R40.4 - Transient alteration of awareness Category: Medical (2) Multiple lacunar infarcts: Comment: MRI shows atrophy , chronic microangiopathy and multiple lacunar infarcts - risk factor- HTN CHF VY Obesity etc. Code(s): I63.81 - Other cerebral infarction due to occlusion or stenosis of small artery Category: Medical (3) VY on CPAP: Code(s): G47.33 - Obstructive sleep apnea (adult) (pediatric); Z99.89 - Dependence on other enabling machines and devices Category: Medical Plan Patient is on warfarin for DVT Atorvostatin 80 mg qd Goal LDL below 70 CPAP compliance stressed cardiology follow up Carotid doppler minimal stenosis proximal right ICA. F/u as needed Coding Level of Care Code Est Pt Level 4 (60556) Diagnoses Transient alteration of awareness R40.4 Multiple lacunar infarcts I63.81 VY on CPAP G47.33; Z99.89
[2023-11-11 10:58] VITALS: BMI 37.6
== END 2023-11-11 11:00 | disposition home or self-care (01) ==
PROVIDERS: PCP Internal Medicine; Visit Provider Psychiatry & Neurology Neurology
DX: R40.4 Transient alteration of awareness (principal); I63.81 Other cerebral infarction due to occlusion or stenosis of small artery; G47.33 Obstructive sleep apnea (adult) (pediatric); Z99.89 Dependence on other enabling machines and devices
CPT/HCPCS: 99214

== ENCOUNTER → 2023-11-11 10:26 | Outpatient (BNVA) | payer MEDICARE, BC, SELFPAY | PROVIDERS: PCP Internal Medicine; Visit Provider Psychiatry & Neurology Neurology | DX: R40.4 Transient alteration of awareness (principal); I11.0 Hypertensive heart disease with heart failure; I50.9 Heart failure, unspecified; E66.9 Obesity, unspecified; G47.33 Obstructive sleep apnea (adult) (pediatric); Z99.89 Dependence on other enabling machines and devices; Z86.73 Personal history of transient ischemic attack (TIA), and cerebral infarction without residual deficits | CPT/HCPCS: 99212 ==

== ENCOUNTER 2023-11-12 13:32 | Outpatient (AMB) | payer MEDICARE, BC, SELFPAY ==
--- NOTE | 2023-11-12 13:45 | MHC.OFFVISCO ---
Intake Intake Visit Reasons: Anticoagulation Allergies lisinopril [LISINOPRIL] Allergy (Severe, Verified 11/12/23 13:40) TONGUE SWELLING, CONFUSION environmental allergies Allergy (Unknown, Verified 11/12/23 13:40) Unknown Medication List - Last Reconciled 11/12/23 by Dana Wiseman RN acetaminophen 650 mg PO BID allopurinol 300 mg PO DAILY ascorbic acid (vitamin C) (Vitamin C) 1 g PO DAILY atorvastatin 40 mg PO BEDTIME brimonidine 0.2% 1 drp ophthalmic-Left BID cholecalciferol (vitamin D3) 25 mcg PO DAILY diphenhydramine HCl (Benadryl) 25 mg PO BEDTIME PRN dorzolamide-timolol 22.3-6.8 mg/mL 1 drp ophthalmic (eye) BEDTIME ferrous sulfate 325 mg PO DAILY furosemide 20 mg PO DAILY gabapentin 300 mg PO Q8H 90 days latanoprost 0.005% 1 drp ophthalmic (eye) BEDTIME metoprolol succinate ER 200 mg PO DAILY multivitamin 1 tab PO DAILY nifedipine ER 60 mg PO DAILY pantoprazole 40 mg PO DAILY sodium,potassium,mag sulfates 17.5-3.13-1.6 gram (Suprep Bowel Prep Kit) DILUTE; drink 1/2 at 6-8 pm and half at 11 PM- 1AM warfarin 10 mg See Protocol PO DAILY 90 days Nursing Note INR: 2.0- in therapeutic range of 2-3 Medications and supplements reviewed- now taking vit D 1,000iu daily No changes in health, diet, medications, or supplements, Denies any signs and symptoms of bleeding or bruising or clotting. Bleeding, bruising, clotting discussed Nutritional guidance given Dose: 5mg x 2, 7.5mg x 5 F/U INR: 3 weeks Patient verbalizes understanding of instructions given Anti-Coag Initial Assessment Social Hx Patient Tobacco Use Status: Never used Tobacco alcohol intake: former Alcohol intake frequency: does not drink Cardiovascular Hx: HTN, CAD and CHF Lung Disease HX: DVT/PE and Other (VY- cpap) Endocrine Hx: Diabetes (pre diabetic) Musculoskeletal Hx: Arthritis and Gout Blood Disorder Hx: Anemia and Hyperlipidemia GI Hx: Bleeding (GI, rectal) (varices), Diverticulosis and Other (IBS with diarrhea) Neurological Hx: Stroke/TIA Cancer HX: No Psych. Illness/Depression: No Coding Level of Care Code Est Patient Level 1 Diagnoses Current use of anticoagulant therapy Z79.01 Assessment & Plan Assessment & Plan (1) Current use of anticoagulant therapy: Code(s): Z79.01 - residential (current) use of anticoagulants Category: Medical
[2023-11-12 13:46] LABS: Prothrombin Time Whole Bld POC 23.9 sec (11.1-13.5)
== END 2023-11-12 13:51 | disposition home or self-care (01) ==
LOC: HO.ACS 13:32
PROVIDERS: PCP Internal Medicine; Visit Provider Internal Medicine
DX: Z79.01 Long term (current) use of anticoagulants (principal)

== ENCOUNTER → 2023-11-12 13:32 | Outpatient (BNVA) | payer MEDICARE, BC, SELFPAY | PROVIDERS: PCP Internal Medicine; Visit Provider Internal Medicine | DX: Z86.73 Personal history of transient ischemic attack (TIA), and cerebral infarction without residual deficits (principal); Z86.718 Personal history of other venous thrombosis and embolism; Z79.01 Long term (current) use of anticoagulants; Z51.81 Encounter for therapeutic drug level monitoring | CPT/HCPCS: 85610; 99211 ==

== ENCOUNTER 2023-11-14 11:35 | Outpatient (AMB) | payer MEDICARE, BC, SELFPAY ==
[2023-11-14 11:38] VITALS: BP 146/84; PULSE 83; O2SAT 94; BMI 38.8
--- NOTE | 2023-11-14 11:38 | MHC.PC.OV ---
Vital Signs 11/14/23 11:38 Height 5 ft 7 in Weight 247 lb 8 oz BMI 38.8 BP 146/84 H Blood Pressure Location Rt brachial Position Sitting Pulse 83 Pulse Source Pulse Oximeter Pulse Oximetry (%) 94 Oxygen Delivery Method Room Air Intake Visit Reasons: Rsch from 10/[address] [facility] Allergies lisinopril [LISINOPRIL] Allergy (Severe, Verified 11/12/23 13:40) TONGUE SWELLING, CONFUSION environmental allergies Allergy (Unknown, Verified 11/12/23 13:40) Unknown Medication List - Last Reconciled 11/14/23 by Conchita Chavis MD acetaminophen 650 mg PO BID allopurinol 300 mg PO DAILY ascorbic acid (vitamin C) (Vitamin C) 1 g PO DAILY atorvastatin 40 mg PO BEDTIME brimonidine 0.2% 1 drp ophthalmic-Left BID cholecalciferol (vitamin D3) 25 mcg PO DAILY diphenhydramine HCl (Benadryl) 25 mg PO BEDTIME PRN dorzolamide-timolol 22.3-6.8 mg/mL 1 drp ophthalmic (eye) BEDTIME ferrous sulfate 325 mg PO DAILY furosemide 20 mg PO DAILY gabapentin 300 mg PO Q8H 90 days latanoprost 0.005% 1 drp ophthalmic (eye) BEDTIME metoprolol succinate ER 200 mg PO DAILY multivitamin 1 tab PO DAILY nifedipine ER 60 mg PO DAILY pantoprazole 40 mg PO DAILY sodium,potassium,mag sulfates 17.5-3.13-1.6 gram (Suprep Bowel Prep Kit) DILUTE; drink 1/2 at 6-8 pm and half at 11 PM- 1AM warfarin 10 mg See Protocol PO DAILY 90 days Tobacco use date assessed: 05/02/23 Dental Screening Dental Screen Date: 05/02/23 HPI Rsch from 10/[address] [facility] HPI Details Patient is a 68 year old gentleman came in today for his regular follow-up appointment Last set of lab was in April new set up order placed Patient is prediabetic we will check hemoglobin A1c Only medications from PCP office are allopurinol, for gout, indomethacin as needed for flare-up of gout and gabapentin for peripheral neuropathy pain. Patient is seeing cardiology for ascending aortic aneurysm last CTA 2021, showed aortic size of 4.7 cm x 4.7 cm. No change from 2020. Obstructive sleep apnea: Patient is using CPAP machine regularly Blood pressure management through cardiology office Patient also have a chronic right heart failure and coronary artery calcifications seen on CAT scan He is taking atorvastatin 40 mg for lipid control, and metoprolol 200 mg through Cardiology along with nifedipine 90 mg for blood pressure Patient is also seeing Gastroenterology , patient have Briscoe's esophagus and will be having EGD in February, IBS is stable Right knee replacement, still healing from it having some instability still using cane Requesting handicap placard for another year which I did fill paperwork for He also is requesting antibiotic for dental procedure which I have sent BMI is elevated , patient is having difficulty losing weight Follow-up 6 months [facility] Medical History Obesity (BMI 30-39.9) Obesity (BMI 30-39.9) Internal derangement of right knee Environmental allergies VY on CPAP Multiple lacunar infarcts Transient alteration of awareness Routine medical exam History of TIA (transient ischemic attack) On beta miguel at home History of GI bleed Chronic right heart failure Nocturnal hypoxemia VY (obstructive sleep apnea) Chronic heart failure with preserved ejection fraction (HFpEF) Essential hypertension Obesity (BMI 30-39.9) C. difficile diarrhea Shoulder injury Lumbar spondylosis Chronic diarrhea History of alcoholism Idiopathic peripheral neuropathy Morbid obesity Pre-diabetes Diarrhea Arthritis Back pain History of Jdghe-Kyaaxxbvr-Jolvu (WPW) syndrome Gout Hiatal hernia History of esophageal varices GERD (gastroesophageal reflux disease) Ascending aorta dilation HTN (hypertension) Surgical History S/P PICC central line placement Hx of total knee replacement H/O cardiac radiofrequency ablation History of esophagogastroduodenoscopy (EGD) History of colonoscopy Family History Father Diabetes mellitus Social History Household Members: Significant Other and Family Household Members Other:: BROTHER Housing: House Housing Other:: lives with s/o and brother Are you a primary tire care manager to a significant other at home: No Do you presently have visiting nurse or other home services: No Alcohol intake: former Year quit: 1998 Comment: aware of trip hazards Patient Tobacco Use Status: Never used Tobacco e-Cigarette/Vaping Use: Never Used Second Hand Smoke Exposure: Yes Advance Directives Date on File: 05/03/20 service: No Current occupational status: retired 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 1. Little interest or pleasure in doing things: not at all 2. Feeling down, depressed, or hopeless: not at all 3. Trouble falling or staying asleep, or sleeping too much: not at all 4. Feeling tired or having little energy: not at all 5. Poor appetite or overeating: not at all 6. Feeling bad about yourself - or that you are a failure or have let yourself or your family down: not at all 7. Trouble concentrating on things, such as reading the newspaper or watching television: not at all 8. Moving or speaking so slowly that other people could have noticed. Or the opposite - being so fidgety or restless that you have been moving around a lot more than usual: not at all 9. Thoughts that you would be better off or of hurting yourself in some way: not at all Total score: 0 Depression Screening Interpretation: Negative Depression Screening Done: Yes 79410 - PHQ-9 Billing: Yes Source: Developed by Drs. Cornell Toth, Odalys Ponce, Matt Hickman and colleagues, with an educational otoniel from [employer]. Thrive Questionnaire Date Thrive assessed: 11/14/23 I am a: Patient What is your living situation today?: I have a steady place to live Within the past 12 months, did the food you bought not last and you didn't have the money to get more?: Sometimes True Within the past 12 months, did you worry whether your food would run out before you got money to buy more?: Sometimes True Do you have trouble paying for medicines?: No Do you have trouble getting transportation to medical appointments?: No Do you have trouble paying your heating and electricity bill?: Yes Do you have trouble taking care of your child, family member or friend?: No Do you have trouble with day-to-day activities such as bathing, preparing meals, shopping, managing finances, etc.?: No Are you currently unemployed and looking for a job?: No Are you interested in more education?: Yes Currently or been in a relationship where the following occur: No concerns reported THRIVE Score: 3 JEANNETTE-7 AMB Questionnaire JEANNETTE-7 Date JEANNETTE - 7 assessed: 01/28/23 Source: Developed by Drs. Cornell Toth, Odalys Ponce, Matt Hickman and colleagues, with an educational otoniel from [employer]. Review of Systems Const Denies chills and Denies fever(s) ENT Denies epistaxis and Denies nasal discharge Card Denies chest pain Resp Denies chest congestion, Denies cough and Denies hemoptysis GI Denies diarrhea and Denies nausea Skin/Breast Denies rash Neuro Reports no additional complaints Psych Reports no additional complaints Endo Reports no additional complaints Physical exam (Primary Care) Vital Signs: Last Vital Signs Pulse 83 11/14/23 11:38 BP 146/84 H 11/14/23 11:38 Pulse Ox 94 11/14/23 11:38 Oxygen Delivery Method Room Air 11/14/23 11:38 BMI result Body Mass Index 38.8 Tobacco/Smoking Status: Tobacco use Status Tobacco use date assessed 05/02/23 11/14/23 11:39 Patient Tobacco Use Status Never used Tobacco 11/14/23 11:39 e-Cigarette/Vaping Use Never Used 11/14/23 11:39 PHQ-9: PHQ-9 Score PHQ-9: Total score 0 11/14/23 11:39 Depression Screening Interpretation: Negative Thrive Assessment: Date of Thrive Assessment Date Thrive assessed 11/14/23 11/14/23 11:39 Currently or been in a relationship where the following occur: No concerns reported Const General: cooperative, comfortable and no acute distress Orientation/consciousness: patient oriented x3 HENMT Head: Yes normocephalic Eyes General: appearance normal, both eyes and all related structures Neck Neck: Yes supple Resp Effort & Inspection: normal respiratory effort, no cough and no stridor Cardio Rhythm: regular rhythm Heart sounds: S1 normal heart sound present and S2 normal heart sound present Skin General skin exam: turgor normal Neuro General: patient oriented x3, tone normal and moves all extremities Assessment and Plan Assessment & Plan (1) Idiopathic peripheral neuropathy: Code(s): G60.9 - Hereditary and idiopathic neuropathy, unspecified (2) Essential hypertension: Code(s): I10 - Essential (primary) hypertension (3) Pre-diabetes: Code(s): R73.03 - Prediabetes (4) Gout: Code(s): M10.9 - Gout, unspecified Qualifiers: Chronicity: chronic Gout etiology: idiopathic Gout site: foot Laterality: unspecified laterality Presence of tophus: without tophus Qualified Code(s): M1A.0790 - Idiopathic chronic gout, unspecified ankle and foot, without tophus (tophi) (5) Morbid obesity: Code(s): E66.01 - Morbid (severe) obesity due to excess calories (6) VY on CPAP: Code(s): G47.33 - Obstructive sleep apnea (adult) (pediatric); Z99.89 - Dependence on other enabling machines and devices (7) Diastolic dysfunction: Comment: . Code(s): I51.89 - Other ill-defined heart diseases (8) Briscoe esophagus: Code(s): K22.70 - Briscoe's esophagus without dysplasia Qualifiers: Briscoe's esophagus type: without dysplasia Qualified Code(s): K22.70 - Briscoe's esophagus without dysplasia (9) Ascending aorta dilation: Code(s): I77.810 - Thoracic aortic ectasia (10) Chronic right heart failure: Code(s): I50.812 - Chronic right heart failure (11) VY (obstructive sleep apnea): Code(s): G47.33 - Obstructive sleep apnea (adult) (pediatric) (12) IBS (irritable bowel syndrome): Code(s): K58.9 - Irritable bowel syndrome without diarrhea Qualifiers: Irritable bowel syndrome type: with both diarrhea and constipation Qualified Code(s): K58.2 - Mixed irritable bowel syndrome (13) Status post revision of total replacement of right knee: Code(s): Z96.651 - Presence of right artificial knee joint Plan Patient is a 68 year old gentleman came in today for his regular follow-up appointment Last set of lab was in April new set up order placed Patient is prediabetic we will check hemoglobin A1c Only medications from PCP office are allopurinol, for gout, indomethacin as needed for flare-up of gout and gabapentin for peripheral neuropathy pain. Patient is seeing cardiology for ascending aortic aneurysm last CTA 2022, showed aortic size of 4.7 cm x 4.7 cm. No change from 2020. Obstructive sleep apnea: Patient is using CPAP machine regularly Blood pressure management through cardiology office Patient also have a chronic right heart failure and coronary artery calcifications seen on CAT scan He is taking atorvastatin 40 mg for lipid control, and metoprolol 200 mg through Cardiology along with nifedipine 90 mg for blood pressure Patient is also seeing Gastroenterology , patient have Briscoe's esophagus and will be having EGD in February, IBS is stable Right knee replacement, still healing from it having some instability still using cane Requesting handicap placard for another year which I did fill paperwork for He also is requesting antibiotic for dental procedure which I have sent BMI is elevated , patient is having difficulty losing weight Follow-up 6 months Orders: Orders Complete Blood Count Auto Diff Today E66.01 - Morbid (severe) obesity due to excess calories, G47.33 - Obstructive sleep apnea (adult) (pediatric), G60.9 - Hereditary and idiopathic neuropathy, unspecified, I10 - Essential (primary) hypertension, I51.89 - Other ill-defined heart diseases, K22.70 - Briscoe's esophagus without dysplasia, M1A.0790 - Idiopathic chronic gout, unspecified ankle and foot, without tophus (tophi), R73.03 - Prediabetes, Z99.89 - Dependence on other enabling machines and devices Comprehensive Met. Panel Today E66.01 - Morbid (severe) obesity due to excess calories, G47.33 - Obstructive sleep apnea (adult) (pediatric), G60.9 - Hereditary and idiopathic neuropathy, unspecified, I10 - Essential (primary) hypertension, I51.89 - Other ill-defined heart diseases, K22.70 - Briscoe's esophagus without dysplasia, M1A.0790 - Idiopathic chronic gout, unspecified ankle and foot, without tophus (tophi), R73.03 - Prediabetes, Z99.89 - Dependence on other enabling machines and devices Hemoglobin A1c Today R73.03 - Prediabetes Medications: New amoxicillin 1 hour before dental procedure 2,000 mg (4 x 500 mg) PO ONCE 1 day 4 caps 1RF Refilled gabapentin 300 mg PO Q8H 90 days 270 caps 0RF Coding Level of Care Code Est Pt Level 4 (63786) Complex EM visit Add On G2211 Diagnoses Idiopathic peripheral neuropathy G60.9 Essential hypertension I10 Pre-diabetes R73.03 Idiopathic chronic gout of foot without tophus, unspecified laterality M1A.0790 Chronicity: chronic Gout etiology: idiopathic Gout site: foot Laterality: unspecified laterality Presence of tophus: without tophus Morbid obesity E66.01 VY on CPAP G47.33; Z99.89 Diastolic dysfunction I51.89 Briscoe's esophagus without dysplasia K22.70 Briscoe's esophagus type: without dysplasia Ascending aorta dilation I77.810 Chronic right heart failure I50.812 VY (obstructive sleep apnea) G47.33 Irritable bowel syndrome with both constipation and diarrhea K58.2 Irritable bowel syndrome type: with both diarrhea and constipation Status post revision of total replacement of right knee Z96.651
== END 2023-11-14 12:02 | disposition home or self-care (01) ==
PROVIDERS: PCP Internal Medicine; Visit Provider Internal Medicine
DX: I11.0 Hypertensive heart disease with heart failure (principal); E66.01 Morbid (severe) obesity due to excess calories; I50.812 Chronic right heart failure; I77.810 Thoracic aortic ectasia; Z68.38 Body mass index [BMI] 38.0-38.9, adult; G60.9 Hereditary and idiopathic neuropathy, unspecified; R73.03 Prediabetes; G47.33 Obstructive sleep apnea (adult) (pediatric); Z99.89 Dependence on other enabling machines and devices; M1A.0790 Idiopathic chronic gout, unspecified ankle and foot, without tophus (tophi); I51.89 Other ill-defined heart diseases; K22.70 Barrett's esophagus without dysplasia; K58.2 Mixed irritable bowel syndrome
CPT/HCPCS: 99214; G2211

== ENCOUNTER 2023-11-14 12:03 | Outpatient (REF) | payer BC, MEDICARE, SELFPAY ==
[2023-11-14 13:18] LABS: MANUAL DIFF FLAG NO
[2023-11-14 13:31] LABS: Basophils Percent Auto 0.5 % (0-2); Eosinophils Absolute Auto 0.3 X10*3/uL (0.0-0.4); Eosinophils Percent Auto 5.2 % (0-4); Hematocrit 41.3 % (42.0-52.0); Imm Gran Abs Auto 0.02 X10*3/uL (0.00-0.03); Imm Gran Pct Auto 0.4 % (0.0-0.4); Lymphocytes Absolute Auto 1.3 X10*3/uL (1.2-4.9); Lymphocytes Percent Auto 23.5 % (20-40); Mean Corpuscular HGB Conc 33.9 g/dl (31.0-36.0); Mean Corpuscular Hemoglobin 30.9 pg (27.0-33.0); Mean Corpuscular Volume 91.2 fL (80.0-98.0); Mean Platelet Volume 11.6 fL (9.4-12.4); Monocytes Absolute Auto 0.5 X10*3/uL (0.1-1.2); Monocytes Percent Auto 8.7 % (2-11); Neutrophils Absolute Auto 3.5 x10*3/uL (2.0-8.3); Neutrophils Percent Auto 61.7 % (45-73); Platelet Count 162 X10*3/uL (160-400); Red Blood Count 4.53 X10*6/uL (4.60-5.80); Red Cell Distribution Width 12.9 % (11.0-16.0); White Blood Count 5.6 X10*3/uL (4.8-10.8)
[2023-11-14 14:11] LABS: Alanine Aminotransferase 33 U/L (0-40); Albumin Level 4.3 g/dL (3.5-5.0); Alkaline Phosphatase 88 U/L (39-117); Anion Gap 13 (12-20); Aspartate Amino Transferase 30 U/L (5-37); Bilirubin Total 1.2 mg/dL (0.0-1.0); Blood Urea Nitrogen 14 mg/dL (9-16); Calcium 10.3 mg/dL (8.4-10.2); Carbon Dioxide 26 mmol/L (22-29); Chloride 106 mmol/L (96-108); Estimated Glomerular Filt Rate > 60; Glucose Random 110 mg/dL (60-115); Potassium 3.9 mmol/L (3.3-5.1); Sodium 141 mmol/L (135-145); Total Protein 7.1 g/dL (6.5-8.0)
[2023-11-14 14:23] LABS: Estimated Average Glucose 114 mg/dL; Hemoglobin A1c % 5.6 % (<6.0)
== END 2023-11-14 12:04 | disposition home or self-care (01) ==
LOC: HO.HMGCLDS 12:03
PROVIDERS: PCP Internal Medicine; Visit Provider Internal Medicine
DX: R73.03 Prediabetes (principal); I10 Essential (primary) hypertension; M1A.0790 Idiopathic chronic gout, unspecified ankle and foot, without tophus (tophi); E66.01 Morbid (severe) obesity due to excess calories; G60.9 Hereditary and idiopathic neuropathy, unspecified; G47.33 Obstructive sleep apnea (adult) (pediatric); Z99.89 Dependence on other enabling machines and devices; I51.89 Other ill-defined heart diseases; K22.70 Barrett's esophagus without dysplasia
CPT/HCPCS: 36415; 80053; 83036; 85025

== ENCOUNTER 2023-12-03 13:29 | Outpatient (AMB) | payer BC, MEDICARE, SELFPAY ==
--- NOTE | 2023-12-03 13:34 | MHC.OFFVISCO ---
Intake Intake Visit Reasons: Anticoagulation Allergies lisinopril [LISINOPRIL] Allergy (Severe, Verified 12/03/23 13:29) TONGUE SWELLING, CONFUSION environmental allergies Allergy (Unknown, Verified 12/03/23 13:29) Unknown Medication List - Last Reconciled 12/03/23 by Dana Wiseman RN acetaminophen 650 mg PO BID allopurinol 300 mg PO DAILY amoxicillin 2,000 mg (4 x 500 mg) PO ONCE 1 day ascorbic acid (vitamin C) (Vitamin C) 1 g PO DAILY atorvastatin 40 mg PO BEDTIME brimonidine 0.2% 1 drp ophthalmic-Left BID cholecalciferol (vitamin D3) 25 mcg PO DAILY diphenhydramine HCl (Benadryl) 25 mg PO BEDTIME PRN dorzolamide-timolol 22.3-6.8 mg/mL 1 drp ophthalmic (eye) BEDTIME ferrous sulfate 325 mg PO DAILY furosemide 20 mg PO DAILY gabapentin 300 mg PO Q8H 90 days latanoprost 0.005% 1 drp ophthalmic (eye) BEDTIME metoprolol succinate ER 200 mg PO DAILY multivitamin 1 tab PO DAILY nifedipine ER 60 mg PO DAILY pantoprazole 40 mg PO DAILY sodium,potassium,mag sulfates 17.5-3.13-1.6 gram (Suprep Bowel Prep Kit) DILUTE; drink 1/2 at 6-8 pm and half at 11 PM- 1AM warfarin 10 mg See Protocol PO DAILY 90 days Nursing Note INR: 2.1- in therapeutic range of 2-3 Medications and supplements reviewed No changes in health, diet, medications, or supplements, Denies any signs and symptoms of bleeding or bruising or clotting. Bleeding, bruising, clotting discussed Nutritional guidance given Dose: 5mg x 2, 2.5mg x 5 F/U INR: 12/15/23 Patient verbalizes understanding of instructions given pt states dental extractions x 4 on 12/16/23 and will call acs with warfarin hold instructions pt states colonoscopy on 03/04/24 Anti-Coag Initial Assessment Social Hx Patient Tobacco Use Status: Never used Tobacco alcohol intake: former Alcohol intake frequency: does not drink Cardiovascular Hx: HTN, CAD and CHF Lung Disease HX: DVT/PE and Other (VY- cpap) Endocrine Hx: Diabetes (pre diabetic) Musculoskeletal Hx: Arthritis and Gout Blood Disorder Hx: Anemia and Hyperlipidemia GI Hx: Bleeding (GI, rectal) (varices), Diverticulosis and Other (IBS with diarrhea) Neurological Hx: Stroke/TIA Cancer HX: No Psych. 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
[2023-12-03 13:35] LABS: Prothrombin Time Whole Bld POC 24.7 sec (11.1-13.5); ~PT, ~INR - Anti Coag Clinic 2.1 (0.9-1.1)
== END 2023-12-03 13:59 | disposition home or self-care (01) ==
LOC: HO.ACS 13:29
PROVIDERS: PCP Internal Medicine; Visit Provider Internal Medicine
DX: Z79.01 Long term (current) use of anticoagulants (principal)

== ENCOUNTER → 2023-12-03 13:29 | Outpatient (BNVA) | payer BC, MEDICARE, SELFPAY | PROVIDERS: PCP Internal Medicine; Visit Provider Internal Medicine | DX: Z86.73 Personal history of transient ischemic attack (TIA), and cerebral infarction without residual deficits (principal); Z86.718 Personal history of other venous thrombosis and embolism; Z79.01 Long term (current) use of anticoagulants; Z51.81 Encounter for therapeutic drug level monitoring | CPT/HCPCS: 85610; 99211 ==

== ENCOUNTER → 2023-12-09 14:01 | Outpatient (REF) | payer BC, MEDICARE, SELFPAY ==
--- NOTE | 2023-12-09 14:04 | CA_ITS ---
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 Findings Left Ventricle Normal left ventricular cavity size. The left ventricular systolic function is normal. The visually estimated ejection fraction is between 60-65%. Great Vessels There is mild dilatation of the sinuses of Valsalva measuring 4.60 cm and mild dilatation of the ascending aorta measuring 4.40 cm. Prior Study Comparison No significant change compared to prior study dated: 10/28/2022. Measurements 2D Linear Measurements IVSd: 1.34 0.6-0.9/0.6-1.0 cm LVIDd: 5.74 3.9-5.3/4.2-5.9 cm LVIDd Index: 2.61 2.4-3.2/2.2-3.1 cm/m2 LVIDs: 3.75 2.0-3.6 cm LVPWd: 1.24 0.7-1.1 cm Ao Root: 3.90 2.1-3.5 cm LV Mass: 402.28 67-162/88-224 g LV Mass Index: 182.86 43-95/49-115 g/m2 2D Systolic Function EF 4C: 68.00 >55% EF 2C: 57.50 >55% Great Vessels Aorta Ao Root-2D: 3.90 2.0-3.7 cm Sinus of Valsalva: 4.60 2.0-3.5 cm Ao Asc: 4.40 2.1-3.4 cm Updated in Other Vendor System with Status of Final Otilio Shaffer MD electronically signed on 12/10/2023 12:31:24 PM with status of Final
== END ==
LOC: HO.CARD 14:01
PROVIDERS: PCP Internal Medicine; Visit Provider Internal Medicine
DX: I71.21 Aneurysm of the ascending aorta, without rupture (principal)
CPT/HCPCS: 93308

== ENCOUNTER → 2023-12-09 14:04 | Outpatient (BNV) | payer BC, MEDICARE, SELFPAY | PROVIDERS: PCP Internal Medicine; Visit Provider Internal Medicine | DX: I71.21 Aneurysm of the ascending aorta, without rupture (principal) | CPT/HCPCS: 93308 ==

== ENCOUNTER 2023-12-10 13:56 | Outpatient (AMB) | payer BC, MEDICARE, SELFPAY ==
--- NOTE | 2023-12-10 14:12 | MHC.OFFVISCO ---
Intake Intake Visit Reasons: Anticoagulation Allergies lisinopril [LISINOPRIL] Allergy (Severe, Verified 12/10/23 15:09) TONGUE SWELLING, CONFUSION environmental allergies Allergy (Unknown, Verified 12/10/23 15:09) Unknown Medication List - Last Reconciled 12/10/23 by Dana Wiseman RN acetaminophen 650 mg PO BID allopurinol 300 mg PO DAILY amoxicillin 2,000 mg (4 x 500 mg) PO ONCE 1 day ascorbic acid (vitamin C) (Vitamin C) 1 g PO DAILY atorvastatin 40 mg PO BEDTIME brimonidine 0.2% 1 drp ophthalmic-Left BID cholecalciferol (vitamin D3) 25 mcg PO DAILY diphenhydramine HCl (Benadryl) 25 mg PO BEDTIME PRN dorzolamide-timolol 22.3-6.8 mg/mL 1 drp ophthalmic (eye) BEDTIME ferrous sulfate 325 mg PO DAILY furosemide 20 mg PO DAILY gabapentin 300 mg PO Q8H 90 days latanoprost 0.005% 1 drp ophthalmic (eye) BEDTIME metoprolol succinate ER 200 mg PO DAILY multivitamin 1 tab PO DAILY nifedipine ER 60 mg PO DAILY pantoprazole 40 mg PO DAILY sodium,potassium,mag sulfates 17.5-3.13-1.6 gram (Suprep Bowel Prep Kit) DILUTE; drink 1/2 at 6-8 pm and half at 11 PM- 1AM warfarin 10 mg See Protocol PO DAILY 90 days Nursing Note INR: 2.0- in therapeutic range of 2-3 Medications and supplements reviewed No changes in health, diet, medications, or supplements, Denies any signs and symptoms of bleeding or bruising or clotting. Bleeding, bruising, clotting discussed Nutritional guidance given - avoid greens when restarting warfarin Dose: warfarin hold per md instructions 5 days before proc. restart 48 hours post proc, take 7.5mg on 12/18/23 then cont reg dosing F/U INR: 12/23/23 Patient verbalizes understanding of instructions given pt to have dental extractions x 4 on 12/16/23 per pcp- 5 day hold warfarin and restart 48 hours post proc if no bleeding composed note to pcp ? lovenox Anti-Coag Initial Assessment Social Hx Patient Tobacco Use Status: Never used Tobacco alcohol intake: former Alcohol intake frequency: does not drink Cardiovascular Hx: HTN, CAD and CHF Lung Disease HX: DVT/PE and Other (VY- cpap) Endocrine Hx: Diabetes (pre diabetic) Musculoskeletal Hx: Arthritis and Gout Blood Disorder Hx: Anemia and Hyperlipidemia GI Hx: Bleeding (GI, rectal) (varices), Diverticulosis and Other (IBS with diarrhea) Neurological Hx: Stroke/TIA Cancer HX: No Psych. Illness/Depression: No Coding Level of Care Code Est Patient Level 1 Diagnoses Current use of anticoagulant therapy Z79.01 Assessment & Plan Assessment & Plan (1) Current use of anticoagulant therapy: Code(s): Z79.01 - longterm (current) use of anticoagulants Category: Medical
[2023-12-10 14:14] LABS: Prothrombin Time Whole Bld POC 24.4 sec (11.1-13.5)
== END 2023-12-10 14:26 | disposition home or self-care (01) ==
LOC: HO.ACS 13:56
PROVIDERS: PCP Internal Medicine; Visit Provider Internal Medicine
DX: Z79.01 Long term (current) use of anticoagulants (principal)

== ENCOUNTER → 2023-12-10 13:56 | Outpatient (BNVA) | payer BC, MEDICARE, SELFPAY | PROVIDERS: PCP Internal Medicine; Visit Provider Internal Medicine | DX: G47.33 Obstructive sleep apnea (adult) (pediatric) (principal); E66.9 Obesity, unspecified; Z68.39 Body mass index [BMI] 39.0-39.9, adult; Z86.73 Personal history of transient ischemic attack (TIA), and cerebral infarction without residual deficits; Z86.718 Personal history of other venous thrombosis and embolism | CPT/HCPCS: 85610; 99211; 99212 ==

== ENCOUNTER 2023-12-10 14:22 | Outpatient (AMB) | payer MEDICARE, BC, SELFPAY ==
--- NOTE | 2023-12-10 14:43 | A.OFFVIS_ITS ---
Vital Signs 12/10/23 14:46 Height 5 ft 7 in Weight 249 lb 1.957 oz BMI 39.0 BP 118/60 Blood Pressure Location Lt brachial Position Sitting Pulse 56 Pulse Source Pulse Oximeter Pulse Oximetry (%) 93 Oxygen Delivery Method Room Air Intake Visit Reasons: salas Intake Note: pt is here for follow up and states he feels good, using cpap every night Director Check Required: No Allergies lisinopril [LISINOPRIL] Allergy (Severe, Verified 12/10/23 15:09) TONGUE SWELLING, CONFUSION environmental allergies Allergy (Unknown, Verified 12/10/23 15:09) Unknown Medication List - Last Reconciled 12/10/23 by Benjamin Amaya MD acetaminophen 650 mg PO BID allopurinol 300 mg PO DAILY amoxicillin 2,000 mg (4 x 500 mg) PO ONCE 1 day ascorbic acid (vitamin C) (Vitamin C) 1 g PO DAILY atorvastatin 40 mg PO BEDTIME brimonidine 0.2% 1 drp ophthalmic-Left BID cholecalciferol (vitamin D3) 25 mcg PO DAILY diphenhydramine HCl (Benadryl) 25 mg PO BEDTIME PRN dorzolamide-timolol 22.3-6.8 mg/mL 1 drp ophthalmic (eye) BEDTIME ferrous sulfate 325 mg PO DAILY furosemide 20 mg PO DAILY gabapentin 300 mg PO Q8H 90 days latanoprost 0.005% 1 drp ophthalmic (eye) BEDTIME metoprolol succinate ER 200 mg PO DAILY multivitamin 1 tab PO DAILY nifedipine ER 60 mg PO DAILY pantoprazole 40 mg PO DAILY sodium,potassium,mag sulfates 17.5-3.13-1.6 gram (Suprep Bowel Prep Kit) DILUTE; drink 1/2 at 6-8 pm and half at 11 PM- 1AM warfarin 10 mg See Protocol PO DAILY 90 days Do you need a note to return to daycare/school/sports/work: No HPI HPI salas: Details: THIS 68 YEARS OLD GENTLEMAN IS GROSSLY OBESE, AND HAS OBSTRUCTIVE SLEEP APNEA WHICH IS BEING TREATED WITH CPAP. FOR THE PAST MANY YEARS. HIS CURRENT CPAP DEVICE IS THE IS NEW, PROVIDED TO HIM AFTER THE RECENT RECALL ABOUT 2 YEARS AGO. HOWEVER IT DOES NOT HAVE CAPABILITY OF ONLINE COMPLIANCE RECORDING. HE CLAIMS THAT HE USES CPAP EVERY NIGHT, EXCEPT MAYBE ONCE OR TWICE PER MONTH WHEN HE FORGETS TO PUT ON THE CPAP. HE DOES NOT USE FOR MORE THAN 3-4 HOURS EVERY NIGHT AND HAS A TENDENCY TO PULL OFF THE MASK WHEN SLEEPING. HOWEVER DURING THE DAYTIME HE FEELS OKAY AND DOES NOT HAVE ANY EXCESSIVE DAYTIME SLEEPINESS. HE REMAINS GROSSLY OVERWEIGHT BECAUSE HE IS NOT ABLE TO WALK FAST OR CLIMBS STAIRS. 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 [facility] Medical History Obesity (BMI 30-39.9) Obesity (BMI 30-39.9) Internal derangement of right knee Environmental allergies SALAS on CPAP Multiple lacunar infarcts Transient alteration of awareness Routine medical exam History of TIA (transient ischemic attack) On beta miguel at home History of GI bleed Chronic right heart failure Nocturnal hypoxemia SALAS (obstructive sleep apnea) Chronic heart failure with preserved ejection fraction (HFpEF) Essential hypertension Obesity (BMI 30-39.9) C. difficile diarrhea Shoulder injury Lumbar spondylosis Chronic diarrhea History of alcoholism Idiopathic peripheral neuropathy Morbid obesity Pre-diabetes Diarrhea Arthritis Back pain History of Qusdc-Brjnpnmyt-Gkqlk (WPW) syndrome Gout Hiatal hernia History of esophageal varices GERD (gastroesophageal reflux disease) Ascending aorta dilation HTN (hypertension) Surgical History S/P PICC central line placement Hx of total knee replacement H/O cardiac radiofrequency ablation History of esophagogastroduodenoscopy (EGD) History of colonoscopy Family History Father Diabetes mellitus Social History Household Members: Significant Other and Family Household Members Other:: BROTHER Housing: House Housing Other:: lives with s/o and brother Are you a primary director of home care hospice to a significant other at home: No Do you presently have visiting nurse or other home services: No Alcohol intake: former Year quit: 1998 Comment: aware of trip hazards Patient Tobacco Use Status: Never used Tobacco e-Cigarette/Vaping Use: Never Used Second Hand Smoke Exposure: Yes Advance Directives Date on File: 05/03/20 service: No Current occupational status: retired 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 Current occupational exposures/hazards: Yes Cognitive needs: No Hearing needs: No Vision needs: Yes Review of Systems Const All systems reviewed & are unremarkable except as noted in HPI and below Eyes Reports no additional complaints ENT Reports no additional complaints Card Denies chest pain, Denies irregular heart rhythm and Denies leg edema Resp Reports no additional complaints, Denies cough and Denies wheezing GI Reports constipation and Reports GI cramping (OFF AND ON) Reports no additional complaints Musc Reports back pain and Reports arthralgias (POST KNEE SURGERY, STILL WALKING WITH A WALKER.) Skin/Breast Reports system reviewed and no additional complaints, except as documented Neuro Reports no additional complaints Psych Reports no additional complaints Aller/Immun Denies wheezing Physical Exam Vital Signs: Last Vital Signs Pulse 56 12/10/23 14:46 BP 118/60 12/10/23 14:46 Pulse Ox 93 12/10/23 14:46 Oxygen Delivery Method Room Air 12/10/23 14:46 BMI result Body Mass Index 39.0 Const General: comfortable, no acute distress, alert and awake Orientation/consciousness: patient oriented x3 HEENT Head: Yes normal to inspection General nose exam: No nasal polyps present and No nasal discharge present Face and sinus: Yes sinuses nontender Mouth: oropharynx abnormals (NARROW AND CROWDED, MALLAMPATI CLASS 4) Throat: Yes posterior oropharynx normal Eyes General: appearance normal, both eyes and all related structures Neck Neck: Yes normal visual inspection, Yes no lymphadenopathy, Yes trachea midline and Yes no JVD Thyroid: Thyroid normal Chest Chest palpation & inspection: normal inspection of the chest, normal palpation of entire chest wall and no tenderness Resp Effort & Inspection: normal respiratory effort Auscultation: clear to auscultation bilaterally, no crackles and no wheezes Cardio Palpation: normal PMI Rate: regular rate Rhythm: regular rhythm Heart sounds: no gallops and no murmurs GI Palpation (GI): Soft to palpation, nontender, No hepatosplenomegaly present and no masses Auscultation: normal bowel sounds Back/Spine/Pelvis Thoracic/Lumbar Spine: thoracic and lumbar spine normal to inspection Skin General skin exam: no rashes or lesions noted Neuro General: patient oriented x3 and no focal motor deficits Cranial nerves: Yes CN's II-XII intact bilaterally Extrem Other: S/P RIGHT KNEE REPLACEMENT. SCAR IN ANTERIOR ASPECT WHICH IS WELL HEALED General: Yes normal to inspection, Yes no clubbing, cyanosis or edema and Yes no calf tenderness Psych Appearance: grossly normal and well kempt Speech and movement: Normal speech and movement present Results Reviewed Results Reviewed: COMPLIANCE DATA NOT AVAILABLE. AWAITING TO GET REPORT FROM DME PROVIDER. Assessment & Plan Assessment & Plan (1) Obesity (BMI 30-39.9): Comment: HE HAS HISTORY OF MORBID OBESITY BUT HAS GRADUALLY LOST SOME WEIGHT. STILL REMAINS GROSSLY OBESE, AND THERE HAS BEEN NO FURTHER PROGRESS. HE IS NOT ABLE TO DO MUCH WALKING OR ANY EXERCISE, HE JUST TRYING TO WALK AROUND IN THE HOUSE, HE IS ALSO TRYING TO RESTRICT CALORIES INTAKE. Code(s): E66.9 - Obesity, unspecified Category: Medical Plan: TALKED TO HIM ABOUT DOING SOME EXERCISES EVEN IN SITTING POSITION, AND ALSO CUT DOWN ON CARBOHYDRATES. (2) SALAS (obstructive sleep apnea): Comment: MILD TO MODERATE DEGREE OF OBSTRUCTIVE SLEEP APNEA. PATIENT HAS BEEN ON THE CPAP AND WAS VERY COMPLIANT MOST OF THE TIME, EXCEPT WHEN HE IS TRAVELING OF OR ON SOME NIGHTS WHEN HE IS WORKING. COMPLIANCE DATA IS NOT AVAILABLE BUT HE CLAIMS THAT HE USES EVERY NIGHT MISSING ONLY ONCE IN A WHILE. Code(s): G47.33 - Obstructive sleep apnea (adult) (pediatric) Category: Medical Plan: WILL CHECK COMPLIANCE WITH THE DME PROVIDER IF THEY HAVE THE INFORMATION. ENCOURAGED THE PATIENT TO USE EVERY NIGHT AND USE IT BEFORE MORE THAN 4-5 HOURS. Coding Level of Care Code Est Pt Level 3 (41810) Diagnoses Obesity (BMI 30-39.9) E66.9 SALAS (obstructive sleep apnea) G47.33
[2023-12-10 14:46] VITALS: BP 118/60; PULSE 56; O2SAT 93; BMI 39.0
== END 2023-12-10 15:09 | disposition home or self-care (01) ==
PROVIDERS: PCP Internal Medicine; Visit Provider Internal Medicine
DX: E66.9 Obesity, unspecified (principal); G47.33 Obstructive sleep apnea (adult) (pediatric)
CPT/HCPCS: 99213

== ENCOUNTER → 2023-12-19 14:29 | Outpatient (BNVA) | payer BC, MEDICARE, SELFPAY | PROVIDERS: PCP Internal Medicine; Visit Provider Internal Medicine ==

== ENCOUNTER 2023-12-25 13:37 | Outpatient (AMB) | payer MEDICARE, BC, SELFPAY ==
[2023-12-25 13:41] VITALS: BP 124/56; PULSE 56; BMI 38.1
--- NOTE | 2023-12-25 13:41 | A.OFFVIS_ITS ---
Vital Signs 12/25/23 13:41 Height 5 ft 7 in Weight 243 lb 6.245 oz BMI 38.1 BP 124/56 L Blood Pressure Location Lt brachial Position Sitting Pulse 56 Intake Visit Reasons: 6 mth s/p; echo Damage Prevention Coordinator Required: No Accompanied by: Self / Same As Patient Allergies lisinopril [LISINOPRIL] Allergy (Severe, Verified 12/25/23 14:16) TONGUE SWELLING, CONFUSION environmental allergies Allergy (Unknown, Verified 12/25/23 14:16) Unknown Medication List - Last Reconciled 12/25/23 by Otilio Shaffer MD acetaminophen 650 mg PO BID allopurinol 300 mg PO DAILY amoxicillin 2,000 mg (4 x 500 mg) PO ONCE 1 day ascorbic acid (vitamin C) (Vitamin C) 1 g PO DAILY atorvastatin 40 mg PO BEDTIME brimonidine 0.2% 1 drp ophthalmic-Left BID cholecalciferol (vitamin D3) 25 mcg PO DAILY diphenhydramine HCl (Benadryl) 25 mg PO BEDTIME PRN dorzolamide-timolol 22.3-6.8 mg/mL 1 drp ophthalmic (eye) BEDTIME enoxaparin 40 mg subcut DAILY ferrous sulfate 325 mg PO DAILY furosemide 20 mg PO DAILY gabapentin 300 mg PO Q8H 90 days latanoprost 0.005% 1 drp ophthalmic (eye) BEDTIME metoprolol succinate ER 200 mg PO DAILY multivitamin 1 tab PO DAILY nifedipine ER 60 mg PO DAILY pantoprazole 40 mg PO DAILY sodium,potassium,mag sulfates 17.5-3.13-1.6 gram (Suprep Bowel Prep Kit) DILUTE; drink 1/2 at 6-8 pm and half at 11 PM- 1AM warfarin 10 mg See Protocol PO DAILY 90 days warfarin 5 mg PO DAILY HPI Comments Details: Alek returns for follow-up regarding congestive heart failure as well as ascending aortic aneurysm. 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 Overall, he states he feels fine. No complaints like angina or shortness of breath or in fact anything cardiac sounding. [facility] Medical History (Updated 12/10/23 @ 15:16 by Benjamin Amaya MD) Obesity (BMI 30-39.9) Obesity (BMI 30-39.9) Internal derangement of right knee Environmental allergies VY on CPAP Multiple lacunar infarcts Transient alteration of awareness Routine medical exam History of TIA (transient ischemic attack) On beta miguel at home History of GI bleed Chronic right heart failure Nocturnal hypoxemia VY (obstructive sleep apnea) Chronic heart failure with preserved ejection fraction (HFpEF) Essential hypertension Obesity (BMI 30-39.9) C. difficile diarrhea Shoulder injury Lumbar spondylosis Chronic diarrhea History of alcoholism Idiopathic peripheral neuropathy Morbid obesity Pre-diabetes Diarrhea Arthritis Back pain History of Uieqn-Gihykhxfa-Hvzwe (WPW) syndrome Gout Hiatal hernia History of esophageal varices GERD (gastroesophageal reflux disease) Ascending aorta dilation HTN (hypertension) Surgical History (Updated 12/25/23 @ 13:49 by Minerva Cordero CMA) Hx of tooth extraction S/P PICC central line placement Hx of total knee replacement H/O cardiac radiofrequency ablation History of esophagogastroduodenoscopy (EGD) History of colonoscopy Family History Father Diabetes mellitus Social History Household Members: Significant Other and Family Household Members Other:: BROTHER Housing: House Housing Other:: lives with s/o and brother Are you a primary landcare officer to a significant other at home: No Do you presently have visiting nurse or other home services: No Alcohol intake: former Year quit: 1998 Comment: aware of trip hazards Patient Tobacco Use Status: Never used Tobacco e-Cigarette/Vaping Use: Never Used Second Hand Smoke Exposure: Yes Advance Directives Date on File: 05/03/20 service: No Current occupational status: retired 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 Current occupational exposures/hazards: Yes Cognitive needs: No Hearing needs: No Vision needs: Yes Review of Systems Const Denies chills, Denies fatigue, Denies fever(s), Denies weight gain and Denies weight loss ENT Denies dizziness Card Denies chest pain, Denies leg edema, Denies lightheadedness, Denies palpitations, Denies dyspnea on exertion, Denies orthopnea and Denies other Resp Denies cough and Denies dyspnea on exertion GI Denies hematochezia and Denies change in stool character Musc Denies abnormal gait, Denies muscle weakness, Denies numbness, Denies radiating pain into limb and Denies tingling Neuro Denies abnormal gait, Denies dizziness, Denies numbness and Denies tingling Endo Denies fatigue and Denies palpitations Physical Exam Vital Signs: Last Vital Signs Pulse 56 12/25/23 13:41 BP 124/56 L 12/25/23 13:41 BMI result Body Mass Index 38.1 Const General: comfortable and no acute distress Orientation/consciousness: patient oriented x3 HEENT Other: Unremarkable Head: Yes normal to inspection Neck Neck: Yes normal visual inspection Chest Chest palpation & inspection: normal inspection of the chest Resp Auscultation: clear to auscultation bilaterally Cardio Palpation: normal PMI Heart sounds: S1 normal heart sound present, S2 normal heart sound present, no gallops, no murmurs and no rubs GI Palpation (GI): Soft to palpation Back/Spine/Pelvis Other: unremarkable Skin General skin exam: no rashes or lesions noted Neuro General: patient oriented x3 Extrem General: Yes normal to inspection Psych Mental Status: mental status grossly normal Results AMB INR Fingerstick AMB INR Fingerstick 1.3 Last Edit by Fadumo Martinez RN on 12/25/23 14:22 interface delay Assessment & Plan Assessment & Plan (1) Chronic right heart failure: Code(s): I50.812 - Chronic right heart failure Category: Medical Plan: Stable. No recent issues. Continue diuretics. (2) Coronary artery calcification seen on CAT scan: Code(s): I25.10 - Atherosclerotic heart disease of [place] coronary artery without angina pectoris Category: Medical Plan: CT chest shows coronary calcification. Myocardial perfusion imaging unremarkable. Continue statins. LDL is well controlled. Last couple of LDLs are 29 followed by 54. (3) Ascending aortic aneurysm: Code(s): I71.21 - Aneurysm of the ascending aorta, without rupture Category: Medical Plan: Ascending aortic size 4.7 cm on the recent CT scan. This is similar to prior studies. In the most recent echocardiogram, 4.4 cm, suspect underestimation. Probably just follow this on CT scans due to size discrepancy. (4) Essential hypertension: Code(s): I10 - Essential (primary) hypertension Category: Medical Plan: Stable. No changes. (5) VY (obstructive sleep apnea): Code(s): G47.33 - Obstructive sleep apnea (adult) (pediatric) Category: Medical Plan: Continue CPAP. Orders: Orders Basic Metabolic Panel 6 Months I71.21 - Aneurysm of the ascending aorta, without rupture CT angio chest aorta 6 Months I71.21 - Aneurysm of the ascending aorta, without rupture Coding Level of Care Code Est Pt Level 4 (45899) Diagnoses Chronic right heart failure I50.812 Coronary artery calcification seen on CAT scan I25.10 Ascending aortic aneurysm I71.21 Essential hypertension I10 VY (obstructive sleep apnea) G47.33
== END 2023-12-25 14:06 | disposition home or self-care (01) ==
PROVIDERS: PCP Internal Medicine; Visit Provider Internal Medicine
DX: I50.812 Chronic right heart failure (principal); I25.10 Atherosclerotic heart disease of native coronary artery without angina pectoris; I71.21 Aneurysm of the ascending aorta, without rupture; I10 Essential (primary) hypertension; G47.33 Obstructive sleep apnea (adult) (pediatric)
CPT/HCPCS: 99214

== ENCOUNTER → 2023-12-25 13:37 | Outpatient (BNVA) | payer MEDICARE, BC, SELFPAY | PROVIDERS: PCP Internal Medicine; Visit Provider Internal Medicine | DX: I11.0 Hypertensive heart disease with heart failure (principal); I50.812 Chronic right heart failure; I25.10 Atherosclerotic heart disease of native coronary artery without angina pectoris; I71.21 Aneurysm of the ascending aorta, without rupture; G47.33 Obstructive sleep apnea (adult) (pediatric); Z86.718 Personal history of other venous thrombosis and embolism; Z86.73 Personal history of transient ischemic attack (TIA), and cerebral infarction without residual deficits; Z51.81 Encounter for therapeutic drug level monitoring; Z79.01 Long term (current) use of anticoagulants | CPT/HCPCS: 85610; 99211; 99212 ==

== ENCOUNTER 2023-12-25 14:13 | Outpatient (AMB) | payer MEDICARE, BC, SELFPAY ==
[2023-12-25 14:22] LABS: Prothrombin Time Whole Bld POC 15.8 sec (11.1-13.5); ~PT, ~INR - Anti Coag Clinic 1.3 (0.9-1.1)
--- NOTE | 2023-12-25 14:39 | MHC.OFFVISCO ---
Intake Intake Visit Reasons: Anticoagulation Allergies lisinopril [LISINOPRIL] Allergy (Severe, Verified 12/25/23 14:16) TONGUE SWELLING, CONFUSION environmental allergies Allergy (Unknown, Verified 12/25/23 14:16) Unknown Medication List - Last Reconciled 12/25/23 by Fadumo Martinez, RN acetaminophen 650 mg PO BID allopurinol 300 mg PO DAILY amoxicillin 2,000 mg (4 x 500 mg) PO ONCE 1 day ascorbic acid (vitamin C) (Vitamin C) 1 g PO DAILY atorvastatin 40 mg PO BEDTIME brimonidine 0.2% 1 drp ophthalmic-Left BID cholecalciferol (vitamin D3) 25 mcg PO DAILY diphenhydramine HCl (Benadryl) 25 mg PO BEDTIME PRN dorzolamide-timolol 22.3-6.8 mg/mL 1 drp ophthalmic (eye) BEDTIME enoxaparin 40 mg subcut DAILY ferrous sulfate 325 mg PO DAILY furosemide 20 mg PO DAILY gabapentin 300 mg PO Q8H 90 days latanoprost 0.005% 1 drp ophthalmic (eye) BEDTIME metoprolol succinate ER 200 mg PO DAILY multivitamin 1 tab PO DAILY nifedipine ER 60 mg PO DAILY pantoprazole 40 mg PO DAILY sodium,potassium,mag sulfates 17.5-3.13-1.6 gram (Suprep Bowel Prep Kit) DILUTE; drink 1/2 at 6-8 pm and half at 11 PM- 1AM warfarin 10 mg See Protocol PO DAILY 90 days warfarin 5 mg PO DAILY Nursing Note INR 1.3?out of therapeutic range of 2-3 S/P extraction of 4 teeth on 12/16/23 complicated by bleeding. Warfarin started 4 days ago on 12/21/23. Medications and supplements reviewed Patient status: feels well but only eating soft foods Medications or supplements: finished Penicillin today Diet: soft food or liquids per pt, mashed potatoes, applesauce, yogurt, ice cream, pudding and broth etc. Denies any signs and symptoms of bleeding or clotting or unusual bruising Bleeding, bruising, clotting discussed and no bleeding from gums currectly. Nutritional guidance given: avoid foods from the list that can lower the INR. Food list reviewed with pt. Pt to have foods that can raise the INR such as grape juice, jatin marv, tomatoes, strawberries and dark chocolate. Dose: 10mg today, then 7.5mg, 10mg, 7.5mg and 7.5mg then re-test. F/U INR Date : 12/30/23?? Patient verbalizing understanding of instructions given. T/C to Dr Chavis's office and spoke to INR with dosing plan given to her with next retest date of 12/30/23. Anti-Coag Initial Assessment Social Hx Patient Tobacco Use Status: Never used Tobacco alcohol intake: former Alcohol intake frequency: does not drink Cardiovascular Hx: HTN, CAD and CHF Lung Disease HX: DVT/PE and Other (VY- cpap) Endocrine Hx: Diabetes (pre diabetic) Musculoskeletal Hx: Arthritis and Gout Blood Disorder Hx: Anemia and Hyperlipidemia GI Hx: Bleeding (GI, rectal) (varices), Diverticulosis and Other (IBS with diarrhea) Neurological Hx: Stroke/TIA Cancer HX: No Psych. Illness/Depression: No Coding Level of Care Code Est Patient Level 1 Diagnoses Current use of anticoagulant therapy Z79.01 Results AMB INR Fingerstick AMB INR Fingerstick 1.3 Last Edit by Fadumo Martinez RN on 12/25/23 14:22 interface delay Assessment & Plan Assessment & Plan (1) Current use of anticoagulant therapy: Code(s): Z79.01 - [facility] (current) use of anticoagulants Category: Medical
== END 2023-12-25 14:54 | disposition home or self-care (01) ==
LOC: HO.ACS 14:13
PROVIDERS: PCP Internal Medicine; Visit Provider Internal Medicine
DX: Z79.01 Long term (current) use of anticoagulants (principal)

== ENCOUNTER 2023-12-30 15:19 | Outpatient (AMB) | payer MEDICARE, BC, SELFPAY ==
--- NOTE | 2023-12-30 15:26 | MHC.OFFVISCO ---
Intake Intake Visit Reasons: Anticoagulation Allergies lisinopril [LISINOPRIL] Allergy (Severe, Verified 12/30/23 15:21) TONGUE SWELLING, CONFUSION environmental allergies Allergy (Unknown, Verified 12/30/23 15:21) Unknown Medication List - Last Reconciled 12/30/23 by Dana Wiseman RN acetaminophen 650 mg PO BID allopurinol 300 mg PO DAILY amoxicillin 2,000 mg (4 x 500 mg) PO ONCE 1 day ascorbic acid (vitamin C) (Vitamin C) 1 g PO DAILY atorvastatin 40 mg PO BEDTIME brimonidine 0.2% 1 drp ophthalmic-Left BID cholecalciferol (vitamin D3) 25 mcg PO DAILY diphenhydramine HCl (Benadryl) 25 mg PO BEDTIME PRN dorzolamide-timolol 22.3-6.8 mg/mL 1 drp ophthalmic (eye) BEDTIME enoxaparin 40 mg See Protocol subcut DAILY ferrous sulfate 325 mg PO DAILY furosemide 20 mg PO DAILY gabapentin 300 mg PO Q8H 90 days latanoprost 0.005% 1 drp ophthalmic (eye) BEDTIME metoprolol succinate ER 200 mg PO DAILY multivitamin 1 tab PO DAILY nifedipine ER 60 mg PO DAILY pantoprazole 40 mg PO DAILY sodium,potassium,mag sulfates 17.5-3.13-1.6 gram (Suprep Bowel Prep Kit) DILUTE; drink 1/2 at 6-8 pm and half at 11 PM- 1AM warfarin 10 mg See Protocol PO DAILY 90 days warfarin 5 mg See Protocol PO DAILY Nursing Note INR: 2.1- in therapeutic range of 2-3 Medications and supplements reviewed- no changes No changes in health, diet, medications, or supplements, Denies any signs and symptoms of bleeding or bruising or clotting. Bleeding, bruising, clotting discussed Nutritional guidance given Dose: 5mg x 2, 7.5mg x 5 F/U INR: pt req 2 weeks Patient verbalizes understanding of instructions given pt vague on dosing- pt s/p dental extract on 12/16/23- restarted warfarin on 12/21/23, extract complicated by bleeding none at present, eating soft foods, Anti-Coag Initial Assessment Social Hx Patient Tobacco Use Status: Never used Tobacco alcohol intake: former Alcohol intake frequency: does not drink Cardiovascular Hx: HTN, CAD and CHF Lung Disease HX: DVT/PE and Other (VY- cpap) Endocrine Hx: Diabetes (pre diabetic) Musculoskeletal Hx: Arthritis and Gout Blood Disorder Hx: Anemia and Hyperlipidemia GI Hx: Bleeding (GI, rectal) (varices), Diverticulosis and Other (IBS with diarrhea) Neurological Hx: Stroke/TIA Cancer HX: No Psych. Illness/Depression: No Coding Level of Care Code Est Patient Level 1 Diagnoses Current use of anticoagulant therapy Z79.01 Results AMB INR Fingerstick AMB INR Fingerstick 2.1 Last Edit by Dana Wiseman RN on 12/30/23 15:28 interface delay Assessment & Plan Assessment & Plan (1) Current use of anticoagulant therapy: Code(s): Z79.01 - [facility] (current) use of anticoagulants Category: Medical
[2023-12-30 15:28] LABS: Prothrombin Time Whole Bld POC 25.1 sec (11.1-13.5); ~PT, ~INR - Anti Coag Clinic 2.1 (0.9-1.1)
== END 2023-12-30 15:37 | disposition home or self-care (01) ==
LOC: HO.ACS 15:19
PROVIDERS: PCP Internal Medicine; Visit Provider Internal Medicine
DX: Z79.01 Long term (current) use of anticoagulants (principal)

== ENCOUNTER → 2023-12-30 15:19 | Outpatient (BNVA) | payer MEDICARE, BC, SELFPAY | PROVIDERS: PCP Internal Medicine; Visit Provider Internal Medicine | DX: Z86.718 Personal history of other venous thrombosis and embolism (principal); Z79.01 Long term (current) use of anticoagulants; Z51.81 Encounter for therapeutic drug level monitoring | CPT/HCPCS: 85610; 99211 ==

== ENCOUNTER 2024-01-14 15:50 | Outpatient (AMB) | payer MEDICARE, BC, SELFPAY ==
--- NOTE | 2024-01-14 15:55 | MHC.OFFVISCO ---
Intake Intake Visit Reasons: Anticoagulation Allergies lisinopril [LISINOPRIL] Allergy (Severe, Verified 01/14/24 15:50) TONGUE SWELLING, CONFUSION environmental allergies Allergy (Unknown, Verified 01/14/24 15:50) Unknown Medication List - Last Reconciled 01/14/24 by Dana Wiseman RN acetaminophen 650 mg PO BID allopurinol 300 mg PO DAILY amoxicillin 2,000 mg (4 x 500 mg) PO ONCE 1 day ascorbic acid (vitamin C) (Vitamin C) 1 g PO DAILY atorvastatin 40 mg PO BEDTIME brimonidine 0.2% 1 drp ophthalmic-Left BID cholecalciferol (vitamin D3) 25 mcg PO DAILY diphenhydramine HCl (Benadryl) 25 mg PO BEDTIME PRN dorzolamide-timolol 22.3-6.8 mg/mL 1 drp ophthalmic (eye) BEDTIME ferrous sulfate 325 mg PO DAILY furosemide 20 mg PO DAILY gabapentin 300 mg PO Q8H 90 days latanoprost 0.005% 1 drp ophthalmic (eye) BEDTIME metoprolol succinate ER 200 mg PO DAILY multivitamin 1 tab PO DAILY nifedipine ER 60 mg PO DAILY pantoprazole 40 mg PO DAILY sodium,potassium,mag sulfates 17.5-3.13-1.6 gram (Suprep Bowel Prep Kit) DILUTE; drink 1/2 at 6-8 pm and half at 11 PM- 1AM warfarin 10 mg See Protocol PO DAILY 90 days warfarin 5 mg See Protocol PO DAILY Nursing Note INR: 2.2- in therapeutic range of 2-3 Medications and supplements reviewed No changes in health, diet, medications, or supplements, Denies any signs and symptoms of bleeding or bruising or clotting. Bleeding, bruising, clotting discussed Nutritional guidance given Dose: 5mg x 2, 7.5mg x 5 F/U INR: 3 weeks Patient verbalizes understanding of instructions given Anti-Coag Initial Assessment Social Hx Patient Tobacco Use Status: Never used Tobacco alcohol intake: former Alcohol intake frequency: does not drink Cardiovascular Hx: HTN, CAD and CHF Lung Disease HX: DVT/PE and Other (VY- cpap) Endocrine Hx: Diabetes (pre diabetic) Musculoskeletal Hx: Arthritis and Gout Blood Disorder Hx: Anemia and Hyperlipidemia GI Hx: Bleeding (GI, rectal) (varices), Diverticulosis and Other (IBS with diarrhea) Neurological Hx: Stroke/TIA Cancer HX: No Psych. Illness/Depression: No Coding Level of Care Code Est Patient Level 1 Diagnoses Current use of anticoagulant therapy Z79.01 Assessment & Plan Assessment & Plan (1) Current use of anticoagulant therapy: Code(s): Z79.01 - director long term care (current) use of anticoagulants Category: Medical
[2024-01-14 15:56] LABS: Prothrombin Time Whole Bld POC 26.1 sec (11.1-13.5); ~PT, ~INR - Anti Coag Clinic 2.2 (0.9-1.1)
== END 2024-01-14 16:02 | disposition home or self-care (01) ==
LOC: HO.ACS 15:50
PROVIDERS: PCP Internal Medicine; Visit Provider Internal Medicine
DX: Z79.01 Long term (current) use of anticoagulants (principal)

== ENCOUNTER → 2024-01-14 15:50 | Outpatient (BNVA) | payer MEDICARE, BC, SELFPAY | PROVIDERS: PCP Internal Medicine; Visit Provider Internal Medicine | DX: Z86.73 Personal history of transient ischemic attack (TIA), and cerebral infarction without residual deficits (principal); Z86.718 Personal history of other venous thrombosis and embolism; Z79.01 Long term (current) use of anticoagulants; Z51.81 Encounter for therapeutic drug level monitoring | CPT/HCPCS: 85610; 99211 ==

== ENCOUNTER 2024-02-03 15:59 | Outpatient (AMB) | payer MEDICARE, BC, SELFPAY ==
--- NOTE | 2024-02-03 16:34 | MHC.OFFVISCO ---
Intake Intake Visit Reasons: Anticoagulation Allergies lisinopril [LISINOPRIL] Allergy (Severe, Verified 02/03/24 15:59) TONGUE SWELLING, CONFUSION environmental allergies Allergy (Unknown, Verified 02/03/24 15:59) Unknown Medication List - Last Reconciled 02/03/24 by Taisha Rojas RN acetaminophen 650 mg PO BID allopurinol 300 mg PO DAILY amoxicillin 2,000 mg (4 x 500 mg) PO ONCE 1 day ascorbic acid (vitamin C) (Vitamin C) 1 g PO DAILY atorvastatin 40 mg PO BEDTIME brimonidine 0.2% 1 drp ophthalmic-Left BID cholecalciferol (vitamin D3) 25 mcg PO DAILY diphenhydramine HCl (Benadryl) 25 mg PO BEDTIME PRN dorzolamide-timolol 22.3-6.8 mg/mL 1 drp ophthalmic (eye) BEDTIME ferrous sulfate 325 mg PO DAILY furosemide 20 mg PO DAILY gabapentin 300 mg PO Q8H 90 days latanoprost 0.005% 1 drp ophthalmic (eye) BEDTIME metoprolol succinate ER 200 mg PO DAILY multivitamin 1 tab PO DAILY nifedipine ER 60 mg PO DAILY pantoprazole 40 mg PO DAILY sodium,potassium,mag sulfates 17.5-3.13-1.6 gram (Suprep Bowel Prep Kit) DILUTE; drink 1/2 at 6-8 pm and half at 11 PM- 1AM warfarin 10 mg See Protocol PO DAILY 90 days Nursing Note INR: 2.4 in therapeutic range Medications and supplements reviewed No changes in health, diet, medications, or supplements, Denies any signs and symptoms of bleeding or bruising or clotting. Bleeding, bruising, clotting discussed pt states he is having colonoscopy and possibly and upper endo also 03/04/24- he has not recieved any instructions at this time regarding stopping the warfarin or lovenox bridging- a msg was sent to his PCP and GI provider Dr Fuentes regarding the procedure Nutritional guidance given- food lists given with review Dose: keep same dosing 5mg x 2 days/ 7.5mg x 5 days F/U INR: 3 weeks 1 week prior his procedure Patient verbalizes understanding of instructions given Anti-Coag Initial Assessment Social Hx Patient Tobacco Use Status: Never used Tobacco alcohol intake: former Alcohol intake frequency: does not drink Cardiovascular Hx: HTN, CAD and CHF Lung Disease HX: DVT/PE and Other (VY- cpap) Endocrine Hx: Diabetes (pre diabetic) Musculoskeletal Hx: Arthritis and Gout Blood Disorder Hx: Anemia and Hyperlipidemia GI Hx: Bleeding (GI, rectal) (varices), Diverticulosis and Other (IBS with diarrhea) Neurological Hx: Stroke/TIA Cancer HX: No Psych. 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
[2024-02-03 16:57] LABS: Prothrombin Time Whole Bld POC 28.9 sec (11.1-13.5); ~PT, ~INR - Anti Coag Clinic 2.4 (0.9-1.1)
== END 2024-02-03 16:40 | disposition home or self-care (01) ==
LOC: HO.ACS 15:59
PROVIDERS: PCP Internal Medicine; Visit Provider Internal Medicine
DX: Z79.01 Long term (current) use of anticoagulants (principal)

== ENCOUNTER → 2024-02-03 15:59 | Outpatient (BNVA) | payer MEDICARE, BC, SELFPAY | PROVIDERS: PCP Internal Medicine; Visit Provider Internal Medicine | DX: Z86.73 Personal history of transient ischemic attack (TIA), and cerebral infarction without residual deficits (principal); Z86.718 Personal history of other venous thrombosis and embolism; Z79.01 Long term (current) use of anticoagulants; Z51.81 Encounter for therapeutic drug level monitoring | CPT/HCPCS: 85610; 99211 ==

== ENCOUNTER 2024-02-12 08:38 | Outpatient (AMB) | payer MEDICARE, BC, SELFPAY ==
--- NOTE | 2024-02-12 08:37 | A.OFFPC_ITS ---
Intake Visit Reasons: Discuss Med Allergies lisinopril [LISINOPRIL] Allergy (Severe, Verified 02/03/24 15:59) TONGUE SWELLING, CONFUSION environmental allergies Allergy (Unknown, Verified 02/03/24 15:59) Unknown Medication List - Last Reconciled 02/13/24 by Conchita Chavis MD acetaminophen 650 mg PO BID allopurinol 300 mg PO DAILY amoxicillin 2,000 mg (4 x 500 mg) PO ONCE 1 day ascorbic acid (vitamin C) (Vitamin C) 1 g PO DAILY atorvastatin 40 mg PO BEDTIME brimonidine 0.2% 1 drp ophthalmic-Left BID cholecalciferol (vitamin D3) 25 mcg PO DAILY diphenhydramine HCl (Benadryl) 25 mg PO BEDTIME PRN dorzolamide-timolol 22.3-6.8 mg/mL 1 drp ophthalmic (eye) BEDTIME ferrous sulfate 325 mg PO DAILY furosemide 20 mg PO DAILY gabapentin 300 mg PO Q8H 90 days latanoprost 0.005% 1 drp ophthalmic (eye) BEDTIME metoprolol succinate ER 200 mg PO DAILY multivitamin 1 tab PO DAILY nifedipine ER 60 mg PO DAILY pantoprazole 40 mg PO DAILY sodium,potassium,mag sulfates 17.5-3.13-1.6 gram (Suprep Bowel Prep Kit) DILUTE; drink 1/2 at 6-8 pm and half at 11 PM- 1AM warfarin 10 mg See Protocol PO DAILY 90 days Tobacco use date assessed: 05/02/23 Dental Screening Dental Screen Date: 05/02/23 HPI Discuss Med HPI Details Chief Complaint Difficulty walking due to neuropathy and post-surgical issues with the right knee. Assessment and Plan 68-year-old male with a history of neuro dia and multiple knee surgeries presenting with limitations in mobility. The patient reports using a cane due to chronic right knee issues and neuropathy contributing to his ambulation difficulties. Despite previous interventions, the patient has not fully recovered, indicating ongoing functional impairment. The primary focus is to address mobility limitations and ensure proper documentation for disability accommodations. 1. Neuropathy The patient reports neuropathy as a contributing factor to his mobility issues. Discussion centered on ensuring appropriate documentation of the condition to facilitate obtaining a handicapped placard. A new form will be mailed to the patient for completion with additional information. 2. Post-Surgical Sequelae Right Knee Shy geries The patient continues to experience significant mobility impairment following surgeries on the right knee. Ongoing use of a cane and slow ambulation indicate persistent post-surgical challenges. A plan was discussed to provide do cumentation supporting disability status for a handicapped placard. Problem List - Neuropathy - Post-surgical sequelae after knee surg eries Patient Instructions - Await the mailing of a new form, ensur e completion, and return for processing. - Continue using a cane for ambulation a s needed for stability and safety. - Monitor symptoms and report any change s or increased difficulties in mobility. [facility] Medical History Obesity (BMI 30-39.9) Obesity (BMI 30-39.9) Internal derangement of right knee Environmental allergies VY on CPAP Multiple lacunar infarcts Transient alteration of awareness Routine medical exam History of TIA (transient ischemic attack) On beta miguel at home History of GI bleed Chronic right heart failure Nocturnal hypoxemia VY (obstructive sleep apnea) Chronic heart failure with preserved ejection fraction (HFpEF) Essential hypertension Obesity (BMI 30-39.9) C. difficile diarrhea Shoulder injury Lumbar spondylosis Chronic diarrhea History of alcoholism Idiopathic peripheral neuropathy Morbid obesity Pre-diabetes Diarrhea Arthritis Back pain History of Tgtik-Xibzzuhiu-Bpagk (WPW) syndrome Gout Hiatal hernia History of esophageal varices GERD (gastroesophageal reflux disease) Ascending aorta dilation HTN (hypertension) Surgical History Hx of tooth extraction S/P PICC central line placement Hx of total knee replacement H/O cardiac radiofrequency ablation History of esophagogastroduodenoscopy (EGD) History of colonoscopy Family History Father Diabetes mellitus Social History Household Members: Significant Other and Family Household Members Other:: BROTHER Housing: House Housing Other:: lives with s/o and brother Are you a primary emergency care tech to a significant other at home: No Do you presently have visiting nurse or other home services: No Alcohol intake: former Year quit: 1998 Comment: aware of trip hazards Patient Tobacco Use Status: Never used Tobacco e-Cigarette/Vaping Use: Never Used Second Hand Smoke Exposure: Yes Advance Directives Date on File: 05/03/20 service: No Current occupational status: retired 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 Cornell Toth, Odalys Ponce, Matt Hickman and colleagues, with an educational otoniel from [employer]. Review of Systems Const Denies chills and Denies fever(s) ENT Denies epistaxis and Denies nasal discharge Card Denies chest pain Resp Denies chest congestion, Denies cough and Denies hemoptysis GI Denies diarrhea and Denies nausea Skin/Breast Denies rash Neuro Reports no additional complaints Psych Reports no additional complaints Endo Reports no additional complaints Physical exam (Primary Care) Tobacco/Smoking Status: Tobacco use Status Tobacco use date assessed 05/02/23 02/12/24 08:38 Patient Tobacco Use Status Never used Tobacco 02/12/24 08:38 e-Cigarette/Vaping Use Never Used 02/12/24 08:38 Thrive Assessment: Date of Thrive Assessment Date Thrive assessed 11/14/23 02/12/24 08:38 Telehealth Telehealth Telehealth Platform: [facility] Location of provider rendering services: practice address Location of patient: address on file Patient Identification confirmed using: Name, : Yes Telehealth method: voice only Patient verbally consented to treatment: Yes Patient verbally consented to billing insurance company: Yes Patient informed of any privacy concerns related to visit: Yes Minutes spent on Phone/Video with Pt.: 13 Coding Level of Care Code Tele Est Pt Level 3 (23699) Diagnoses Neuropathy G62.9 Status post total right knee replacement Z96.651 Chronic pain of right knee M25.561; G89.29 Chronicity: chronic Assessment & Plan Assessment & Plan (1) Neuropathy: Code(s): G62.9 - Polyneuropathy, unspecified Category: Medical (2) Status post total right knee replacement: Code(s): Z96.651 - Presence of right artificial knee joint Category: Surgical (3) Knee pain, right: Code(s): M25.561 - Pain in right knee Category: Medical Qualifiers: Chronicity: chronic Qualified Code(s): M25.561 - Pain in right knee; G89.29 - Other chronic pain Plan Chief Complaint Difficulty walking due to neuropathy and post-surgical issues with the right knee. Assessment and Plan 68-year-old male with a history of neuropathy and multiple knee surgeries presenting with limitations in mobility. The patient reports using a cane due to chronic right knee issues and neuropathy contributing to his ambulation difficulties. Despite previous interventions, the patient has not fully recovered, indicating ongoing functional impairment. The primary focus is to address mobility limitations and ensure proper documentation for disability accommodations. 1. Neuropathy The patient reports neuropathy as a contributing factor to his mobility issues. Discussion centered on ensuring appropriate documentation of the condition to facilitate obtaining a handicapped placard. A new form will be mailed to the patient for completion with additional information. 2. Post-Surgical Sequelae Right Knee Surgeries The patient continues to experience significant mobility impairment following surgeries on the right knee. Ongoing use of a cane and slow ambulation indicate persistent post-surgical challenges. A plan was discussed to provide documentation supporting disability status for a handicapped placard. Problem List - Neuropathy - Post-surgical sequelae after knee surgeries Patient Instructions - Await the mailing of a new form, ensure completion, and return for processing. - Continue using a cane for ambulation as needed for stability and safety. - Monitor symptoms and report any changes or increased difficulties in mobility.
== END 2024-02-12 11:25 | disposition home or self-care (01) ==
LOC: HO.HMCC 08:38
PROVIDERS: PCP Internal Medicine; Visit Provider Internal Medicine
DX: G62.9 Polyneuropathy, unspecified (principal); Z96.651 Presence of right artificial knee joint; M25.561 Pain in right knee; G89.29 Other chronic pain

== ENCOUNTER → 2024-02-12 08:38 | Outpatient (BNVA) | payer MEDICARE, BC, SELFPAY | PROVIDERS: PCP Internal Medicine; Visit Provider Internal Medicine ==

== ENCOUNTER 2024-03-04 07:24 | Day surgery (SDC) | payer MEDICARE, BC, SELFPAY ==
[2024-03-01 16:24] VITALS: BMI 37.6
[2024-03-04 07:27] VITALS: BP 133/92; PULSE 80; RESP 20; TEMP 36.9; O2SAT 95
[2024-03-04] MEDS: Lactated Ringers 1,000 ML 50 ML IVCONT (07:53)
--- NOTE | 2024-03-04 07:57 | HO.ANESPROP2 ---
HPI - Anesthesia Eval Consult details Narrative: 68 yo M presenting for EGD/colonoscopy. Hx of WPW s/p ablation. VY on CPAP. PMFSH Active Problems Active Problems: All Active Problems Colon polyps (Acute) Ascending aortic aneurysm (Acute) Bilateral hip pain (Acute) Bilateral knee pain (Acute) Deconditioned low back (Acute) Neuropathy (Acute) IBS (irritable bowel syndrome) (Acute) Briscoe esophagus (Acute) Medicare annual wellness visit, initial (Acute) Current use of anticoagulant therapy (Acute) DVT (deep venous thrombosis) (Acute) Status post revision of total replacement of right knee (Acute) History of revision of total replacement of right knee joint (Acute) Normochromic normocytic anemia (Acute) Preoperative cardiovascular examination (Acute) Open wound (Acute) Loosening of prosthesis of right total knee replacement (Acute) Risk for falls (Acute) Bilateral impacted cerumen (Acute) Speech impairment (Acute) History of total right knee replacement (Acute) Iron deficiency (Acute) CVA (cerebral vascular accident) (Acute) TIA (transient ischemic attack) (Acute) Viral infection (Acute) Chronic right-sided heart failure (Acute) Swelling of right lower extremity (Acute) Swelling of knee joint, right (Acute) Anemia (Acute) Encounter for general adult medical examination with abnormal findings (Acute) Status post total right knee replacement (Acute) S/P knee replacement (Acute) Fracture of distal end of left fibula (Acute) Left ankle sprain (Acute) Pre-op evaluation (Acute) Irritable bowel syndrome with diarrhea (Acute) Osteoarthritis of right knee (Acute) Knee pain, right (Acute) Coronary artery calcification seen on CAT scan (Acute) C. difficile diarrhea (Acute) Hospital discharge follow-up (Acute) VY (obstructive sleep apnea) (Acute) Diastolic dysfunction (Acute) Acute respiratory failure with hypoxia (Acute) Acute diastolic CHF (congestive heart failure) (Acute) Glaucoma (Acute) Obesity (BMI 30-39.9) (Acute) Obesity (BMI 30-39.9) (Acute) VY on CPAP (Acute) Multiple lacunar infarcts (Acute) Transient alteration of awareness (Acute) Chronic right heart failure (Acute) Nocturnal hypoxemia (Acute) VY (obstructive sleep apnea) (Acute) Chronic heart failure with preserved ejection fraction (HFpEF) (Acute) Essential hypertension (Acute) Ascending aorta dilation (Acute) Obesity (BMI 30-39.9) (Acute) Shoulder injury (Acute) Lumbar spondylosis (Acute) Chronic diarrhea (Acute) Idiopathic peripheral neuropathy (Acute) Morbid obesity (Acute) Gout (Acute) HTN (hypertension) (Acute) Pre-diabetes (Acute) Past Medical History Medical History (Updated 03/02/24 @ 08:19 by Fanny Ventura RN) Glaucoma Obesity (BMI 30-39.9) Internal derangement of right knee Environmental allergies Multiple lacunar infarcts Transient alteration of awareness Routine medical exam History of TIA (transient ischemic attack) On beta miguel at home History of GI bleed Chronic right heart failure Nocturnal hypoxemia VY (obstructive sleep apnea) Chronic heart failure with preserved ejection fraction (HFpEF) Essential hypertension C. difficile diarrhea Shoulder injury Lumbar spondylosis Chronic diarrhea History of alcoholism Idiopathic peripheral neuropathy Morbid obesity Pre-diabetes Diarrhea Arthritis Back pain History of Ozwtn-Pawfridrh-Kbfpg (WPW) syndrome Gout Hiatal hernia History of esophageal varices GERD (gastroesophageal reflux disease) Ascending aorta dilation HTN (hypertension) Family History Family History Father Diabetes mellitus Family history of problems with anesthesia: No Surgical History Surgical History Hx of tooth extraction S/P PICC central line placement Hx of total knee replacement H/O cardiac radiofrequency ablation History of esophagogastroduodenoscopy (EGD) History of colonoscopy History of Problems with Anesthesia: No Social History Social History Household Members: Significant Other and Family Household Members Other:: BROTHER Housing: House Housing Other:: lives with s/o and brother Are you a primary workforce investment act career manager to a significant other at home: No Do you presently have visiting nurse or other home services: No Alcohol intake: former Year quit: 1998 Comment: aware of trip hazards Patient Tobacco Use Status: Never used Tobacco e-Cigarette/Vaping Use: Never Used Second Hand Smoke Exposure: Yes Use of substances other than those prescribed or required for medical reasons: No Have you been hit, kicked, punched, or otherwise hurt by someone within the past year? 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 Current occupational exposures/hazards: Yes Cognitive needs: No Hearing needs: No Vision needs: Yes Meds Allergies Allergy/AdvReac Type Severity Reaction Status Date / Time lisinopril [LISINOPRIL] Allergy Severe TONGUE Verified 02/03/24 15:59 SWELLING, CONFUSION environmental allergies Allergy Unknown Unknown Verified 02/03/24 15:59 Active Medications: Current Medications Lactated Ringer's (Lr) 1,000 mls @ 50 mls/hr IVCONT .Q20H WALE Last Admin: 03/04/24 07:53 Dose: 50 mls/hr Home Medications ?Medication ?Instructions ?Recorded ?Confirmed ?Last Taken ?Type dorzolamide 22.3 mg-timolol 6.8 1 drp ophthalmic (eye) BEDTIME 12/07/19 03/01/24 04/02/21 History mg/mL eye drops latanoprost 0.005 % eye drops 1 drp ophthalmic (eye) BEDTIME 12/07/19 03/01/24 03/11/22 History brimonidine 0.2 % eye drops 1 drp ophthalmic-Left BID 02/16/21 03/01/24 03/11/22 History multivitamin 1 tab PO DAILY 04/03/21 03/01/24 03/11/22 History cholecalciferol (vitamin D3) 25 25 mcg PO DAILY 11/12/23 03/01/24 Unknown History mcg (1,000 unit) capsule aspirin 81 mg chewable tablet 81 mg PO DAILY 03/01/24 03/01/24 02/29/24 History Exam Exam Date and Time: 03/04/24 0755 Height,Weight and Vital Signs: Height 5 ft 7 in Weight 108.862 kg Last Vital Signs Temp 98.5 F 03/04/24 07:27 Pulse 80 03/04/24 07:27 Resp 20 03/04/24 07:27 BP 133/92 H 03/04/24 07:27 Pulse Ox 95 03/04/24 07:27 O2 Del Method Room Air 03/04/24 07:27 Airway Mallampati Class: III (small mouth opening) TM Dist: <=3cm Neck ROM: Full Loose/Missing/Broken Teeth: Yes (edentulous top jaw) Heart: S1S2 Lungs: CTAB Other: Large neck circumference Assessment and Plan Assessment Anesthesia Assessment: Anesthesia Plan Discussed and Chart Reviewed Final Anesthetic Review Family History of Problems with Anesthesia: No History of Problems with Anesthesia: No NPO: Yes ASA Class: III Final Preanesthetic Review: No Changes in Pt Med Stat, Meds/Allgs Chart Reviewed, Consent Obtained/Reviewed and Anes Risks/Benef Reviewed Patient Risk: Intermediate Procedure Risk: Low Anesthetic Plan Anesthetic Plan: MAC: and Agree w/ Assess. and Plan Disposition: Standard PACU
--- NOTE | 2024-03-04 08:20 | MHC.SHP ---
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 Details of Present Illness: hx of colo polyps Relevant Family History (Specify if Yes): No Relevant Social History: None Present Medications: see Short Stay Collaborative assessment Medical History: Significant History (Glaucoma Obesity (BMI 30-39.9) Internal derangement of right knee Environmental allergies Multiple lacunar infarcts Transient alteration of awareness Routine medical exam History of TIA (transient ischemic attack) On beta miguel at home History of GI bleed Chronic right heart failure Nocturnal hypo) History of Previous Operations: Relevant previous surgery/procedure and date(s) ( Hx of tooth extraction S/P PICC central line placement Hx of total knee replacement H/O cardiac radiofrequency ablation History of esophagogastroduodenoscopy (EGD) History of colonoscopy) Allergies: Allergies Allergy/AdvReac Type Severity Reaction Status Date / Time lisinopril [LISINOPRIL] Allergy Severe TONGUE Verified 02/03/24 15:59 SWELLING, CONFUSION environmental allergies Allergy Unknown Unknown Verified 02/03/24 15:59 Review of Systems Sugical H&P ROS: Negative: Constitution, Cardiovascular, Respiratory, Neurological, Psychiatric, Hem-Onc, Allergic/Immunologic, Gastrointestinal, Genitourinary, Musculoskeletal, Integumentary, Endocrine and Eyes/Ears/Nose/Throat Exam Surgical H&P Exam: Normal: HEENT, Normal: Heart, Normal: Lungs, Normal: Extremities, Normal: Abdomen, Normal: Skin and Normal: Neurological Plan Diagnosis/Plan: Unchanged I have reviewed the history and physical and performed a pertinent physical examination on my patient. No changes have occurred unless specified. Time Spent With Patient Time: Total time managing care of this patient today ____ minutes.
--- NOTE | 2024-03-04 09:25 | P.OPN-COLO_ITS ---
Colonoscopy Operative Note Operative Note Date of Service: 03/04/24 Narrative: Operative Information Procedure Description: EGD, Colonoscopy Indication: dysphagia, hx of colon polyps and barretts Anesthesia: MAC FLEXIBLE TRANSORAL UPPER GASTROINTESTINAL ENDOSCOPY AND COLONOSCOPY PROCEDURE NOTE UPPER ENDOSCOPY Consent: Indications for the procedure and potential complications of bleeding, perforation, reaction to medications and missed diagnosis were discussed with the patient and informed consent was obtained. Instrument: Olympus GIF H 190 J mid size upper endoscope Monitoring: Vital signs and clinical assessment, continuous EKG monitoring, Pulse oximetry, Carbon Dioxide monitoring and blood pressure monitoring were done throughout the procedure. Procedure: The patient was placed in the left lateral decubitis position and pre-procedure medications were administered and a bite block was placed. The endoscope was inserted into the mouth and advanced under direct vision to the third part of duodenum. A careful inspection was made as the upper endoscope was withdrawn including a retroflexed examination of the proximal stomach; Findings and interventions are described below. Findings: Larynx:normal Esophagus: GE junction at 42 cm, diaphragm hiatus at 44 cm consistent with 2 cm sliding hiatal hernia. There was salmon pink tissue consistent with Barretts esophagus, C1M2 by [place] criteria. Bx taken. Scarring noted prob from prior esophageal banding but no varices seen. Balloon dilation done to 20 mm at LES and UEs, small tear noted at LES and clip applied due to persistent oozing. Stomach: Mild erythema. Grade 2 flap valve on retroflexed examination of the cardia. Duodenum: Normal bulb and descending duodenum, Intervention: Biopsies as noted above, balloon dilation and clip COLONOSCOPY Instrument: Olympus variable stiffness ADULT scope 190L Colonoscopy Monitoring: Vital signs and clinical assessment, continuous EKG monitoring, Pulse oximetry, Carbon Dioxide monitoring and blood pressure monitoring were done throughout the procedure. Colon withdrawal time was 12 minutes. Procedure: The patient was placed in the left lateral decubitis position and pre-procedure medications were administered. After a digital rectal examination of the ano-rectum, the video colonoscope was inserted into the rectum and advanced through the colon to the cecum/TI. The colonoscope was slowly withdrawn in a retrograde panoramic fashion and the colon mucosa was carefully examined including a retroflexed view of the rectum. Findings and interventions are described below. Procedure Difficulty:moderate Findings: Terminal Ileum-not intubated Cecum:normal Ascending Colon: x 2 sessile polyps 8-10 mm removed with cold snare Transverse Colon -normal Descending Colon: x 3 sessile polyps 8-10 mm removed with cold snare Sigmoid Colon: mild to moderate diverticulosis Rectum: Retroflexion with small internal hemorrhoids, grade I Anorectum - normal Colon preparation: [place] Bowel Preparation Scale Right colon; 2 Transverse colon: 2 Left colon; 2 (0 = Unprepared colon segment with mucosa not seen due to solid stool that cannot be cleared. 1 = Portion of mucosa of the colon segment seen, but other areas of the colon segment not well seen due to staining, residual stool and/or opaque liquid. 2 = Minor amount of residual staining, small fragments of stool and/or opaque liquid, but mucosa of colon segment seen well. 3 = Entire mucosa of colon segment seen well with no residual staining, small fragments of stool or opaque liquid) Impression and Post Procedure Diagnosis: Endoscopy Findings: barretts esophageal stricture hiatal hernia Colonoscopy Findings: diverticulosis colon polyps x 5 internal hemorrhoids Plan: Await Pathology results Repeat Colonoscopy in 3-4 years or earlier if clinically indicated High fiber diet leaflet avoid straining at stool, epsom salts and sitz bath, anusol supps or cream Above findings were reviewed with the patient and relevant handouts were provided if indicated.
[2024-03-04 09:28] VITALS: BP 115/64; PULSE 68; RESP 14; TEMP 36.2; O2SAT 97
[2024-03-04 09:43] VITALS: BP 118/73; PULSE 64; RESP 17; O2SAT 97
[2024-03-04 09:58] VITALS: BP 138/83; PULSE 64; RESP 14; TEMP 36.2; O2SAT 97
== END 2024-03-04 10:37 | disposition home or self-care (01) ==
PROVIDERS: PCP Internal Medicine; Visit Provider Internal Medicine Gastroenterology
PROC: (CPT 45385; principal; 2024-03-04 09:00)
DX: Z12.11 Encounter for screening for malignant neoplasm of colon (principal); D12.2 Benign neoplasm of ascending colon; D12.4 Benign neoplasm of descending colon; K57.30 Diverticulosis of large intestine without perforation or abscess without bleeding; K64.0 First degree hemorrhoids; Z86.0101 Personal history of adenomatous and serrated colon polyps; K22.70 Barrett's esophagus without dysplasia; K22.2 Esophageal obstruction; K31.7 Polyp of stomach and duodenum; K44.9 Diaphragmatic hernia without obstruction or gangrene; E11.9 Type 2 diabetes mellitus without complications; I11.0 Hypertensive heart disease with heart failure; I50.32 Chronic diastolic (congestive) heart failure; G47.33 Obstructive sleep apnea (adult) (pediatric); Z99.89 Dependence on other enabling machines and devices; Z87.891 Personal history of nicotine dependence; Z79.02 Long term (current) use of antithrombotics/antiplatelets; Z79.82 Long term (current) use of aspirin; Z79.899 Other long term (current) drug therapy
CPT/HCPCS: 45385; 43249; 43239; 88305; C1726; J2003; J2704

== ENCOUNTER → 2024-03-04 07:24 | Outpatient (BNV) | payer MEDICARE, BC, SELFPAY | PROVIDERS: PCP Internal Medicine; Visit Provider Internal Medicine Gastroenterology | DX: Z12.11 Encounter for screening for malignant neoplasm of colon (principal); Z86.0100 Personal history of colon polyps, unspecified; D12.2 Benign neoplasm of ascending colon; K57.30 Diverticulosis of large intestine without perforation or abscess without bleeding; R13.10 Dysphagia, unspecified; K22.70 Barrett's esophagus without dysplasia | CPT/HCPCS: 43239; 43249; 45385 ==

== ENCOUNTER 2024-05-14 12:08 | Outpatient (AMB) | payer MEDICARE, BC, SELFPAY ==
--- NOTE | 2024-05-14 12:09 | MHC.PC.OV ---
Vital Signs 05/14/24 12:10 Height 5 ft 7 in Weight 253 lb BMI 39.6 BP 132/78 Blood Pressure Location Lt brachial Position Sitting Pulse 70 Pulse Source Pulse Oximeter Pulse Oximetry (%) 98 Oxygen Delivery Method Room Air Intake Visit Reasons: 6m follow up Allergies lisinopril [LISINOPRIL] Allergy (Severe, Verified 05/14/24 12:11) TONGUE SWELLING, CONFUSION environmental allergies Allergy (Unknown, Verified 05/14/24 12:11) Unknown Medication List - Last Reconciled 05/14/24 by Conchita Chavis MD allopurinol 300 mg PO DAILY aspirin 81 mg PO DAILY atorvastatin 40 mg PO BEDTIME brimonidine 0.2% 1 drp ophthalmic-Left BID cholecalciferol (vitamin D3) 25 mcg PO DAILY dorzolamide-timolol 22.3-6.8 mg/mL 1 drp ophthalmic (eye) BEDTIME ferrous sulfate 325 mg PO DAILY furosemide 20 mg PO DAILY gabapentin 300 mg PO Q8H 90 days latanoprost 0.005% 1 drp ophthalmic (eye) BEDTIME metoprolol succinate ER 200 mg PO DAILY multivitamin 1 tab PO DAILY nifedipine ER 60 mg PO DAILY pantoprazole 40 mg PO DAILY Tobacco use date assessed: 05/14/24 Fall risk assessment: No Falls in past year Last assessed Fall Risk: 05/14/24 Dental Screening Dental Screen Date: 05/14/24 Did you have a dental visit in the last 12 months?: No Did you have a dental problem in the last 6 months where you did not have access to dental care?: No Was dental information given to patient?: No HPI 6m follow up HPI Details History The patient is a 69-year-old male presenting for regular follow-up appointment and has pain in his right middle toe Few days ago patient lost his nail, initially it was bleeding but now the bleeding has stopped And on examination there is no inflammation or infection Other toenails are overgrown patient is having difficulty clipping them - He has a current regimen involving Gabapentin 300 mg t.i.d., for neuropathy management through PCP office Patient is prediabetic we will check hemoglobin A1c Only medications from PCP office are allopurinol, for gout, indomethacin as needed for flare-up of gout and gabapentin for peripheral neuropathy pain. Patient is seeing cardiology for ascending aortic aneurysm last CTA 2021, showed aortic size of 4.7 cm x 4.7 cm. No change from 2020. Obstructive sleep apnea: Patient is using CPAP machine regularly Blood pressure management through cardiology office Patient also have a chronic right heart failure and coronary artery calcifications seen on CAT scan He is taking atorvastatin 40 mg for lipid control, and metoprolol 200 mg through Cardiology along with nifedipine 90 mg for blood pressure Patient is also seeing Gastroenterology , patient have Briscoe's esophagus and will be having EGD in February, IBS is stable BMI is elevated , patient is having difficulty losing weight Follow-up 6 months . Patient Instructions - See a foot doctor (air pollution control engineer) for evaluation of toenail condition. - Keep the area clean and covered with a sock if necessary. - Monitor for signs of infection such as increased redness or pus. - Continue taking Gabapentin as prescribed. - Schedule a follow-up in six months as discussed. - continue other medication as prescribed Review of Systems - General: No fever no chills - Neurological: No headaches no dizziness - Ear nose throat: No sore throat no hearing difficulty no ear pain - Cardiovascular: No syncope, no chest pain, no palpitations - Gastrointestinal: No nausea vomiting or diarrhea - Endocrine: No polyuria polydipsia no heat intolerance - Genitourinary: No dysuria , no blood in urine Physical Exam General: No acute distress HEENT: No acute findings Neck: Supple Respiratory system: Able to talk in full sentences, no audible wheeze cardiovascular: S1-S2 regular in rate and rhythm Gastrointestinal: No pain Extremities: Toenail missing on the second toe of the right foot, no infection or inflammation noted TIGHTENING MACHINE OPERATOR: Alert awake oriented x3 motor sensory intact Skin: Normal turgor [facility] Medical History Glaucoma Obesity (BMI 30-39.9) Internal derangement of right knee Environmental allergies Multiple lacunar infarcts Transient alteration of awareness Routine medical exam History of TIA (transient ischemic attack) On beta miguel at home History of GI bleed Chronic right heart failure Nocturnal hypoxemia VY (obstructive sleep apnea) Chronic heart failure with preserved ejection fraction (HFpEF) Essential hypertension C. difficile diarrhea Shoulder injury Lumbar spondylosis Chronic diarrhea History of alcoholism Idiopathic peripheral neuropathy Morbid obesity Pre-diabetes Diarrhea Arthritis Back pain History of Cpscf-Ghjhuftzf-Uqmkz (WPW) syndrome Gout Hiatal hernia History of esophageal varices GERD (gastroesophageal reflux disease) Ascending aorta dilation HTN (hypertension) Surgical History Hx of tooth extraction S/P PICC central line placement Hx of total knee replacement H/O cardiac radiofrequency ablation History of esophagogastroduodenoscopy (EGD) History of colonoscopy Family History Father Diabetes mellitus Social History Household Members: Significant Other and Family Household Members Other:: BROTHER Housing: House Housing Other:: lives with s/o and brother Are you a primary career and technology education teacher to a significant other at home: No Do you presently have visiting nurse or other home services: No Alcohol intake: former Year quit: 1998 Comment: aware of trip hazards Patient Tobacco Use Status: Never used Tobacco e-Cigarette/Vaping Use: Never Used Second Hand Smoke Exposure: Yes Advance Directives Date on File: 05/03/20 service: No Current occupational status: retired 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 70650 - PHQ-9 Billing: Patient declined-do not bill Source: Developed by Drs. Cornell Toth, Odalys Ponce, Matt Hickman and colleagues, with an educational otoniel from [employer]. Thrive Questionnaire Date Thrive assessed: 05/14/24 I am a: Patient What is your living situation today?: I have a steady place to live Within the past 12 months, did the food you bought not last and you didn't have the money to get more?: Never true Within the past 12 months, did you worry whether your food would run out before you got money to buy more?: Never true Do you have trouble paying for medicines?: No Do you have trouble getting transportation to medical appointments?: No Do you have trouble paying your heating and electricity bill?: No Do you have trouble taking care of your child, family member or friend?: No Do you have trouble with day-to-day activities such as bathing, preparing meals, shopping, managing finances, etc.?: No Are you currently unemployed and looking for a job?: No Are you interested in more education?: No Please select the resources that you would like help with: None Currently or been in a relationship where the following occur: No concerns reported THRIVE Score: 0 AUDIT C Alcohol Use Questionnaire (AUDIT-C) 1. How often do you have a drink containing alcohol?: Never 3. How often do you have six or more drinks on one occasion?: Never Total Score: 0 Score Reviewed/Action Taken: Yes JEANNETTE-7 AMB Questionnaire JEANNETTE-7 Date JEANNETTE - 7 assessed: 05/14/24 Feeling nervous, anxious, or on edge: 0 = Not at all Not being able to stop or control worryin = Not at all Worrying too much about different things: 0 = Not at all Trouble relaxin = Not at all Being so restless that it is hard to sit still: 0 = Not at all Becoming easily annoyed or irritable: 0 = Not at all Feeling afraid as if something awful might happen: 0 = Not at all Total JEANNETTE-7 score (0-4 normal; 5-9 mild; 10-14 moderate; 15-21 severe): 0 Source: Developed by Drs. Cornell Toth, Odalys Ponce, Matt Hickman and colleagues, with an educational otoniel from [employer]. JEANNETTE-7 Assessment Billing JEANNETTE-7 Assessment Tool: JEANNETTE-7 Assessment 72012 Physical exam (Primary Care) Vital Signs: Last Vital Signs Pulse 70 05/14/24 12:10 BP 132/78 05/14/24 12:10 Pulse Ox 98 05/14/24 12:10 Oxygen Delivery Method Room Air 05/14/24 12:10 BMI result Body Mass Index 39.6 Tobacco/Smoking Status: Tobacco use Status Tobacco use date assessed 05/14/24 05/14/24 12:12 Patient Tobacco Use Status Never used Tobacco 05/14/24 12:10 e-Cigarette/Vaping Use Never Used 05/14/24 12:10 Thrive Assessment: Date of Thrive Assessment Date Thrive assessed 05/14/24 05/14/24 12:12 Currently or been in a relationship where the following occur: No concerns reported Coding Level of Care Code Est Pt Level 4 (44633) Complex EM visit Add On G2211 Diagnoses Idiopathic peripheral neuropathy G60.9 Toe pain, right M79.674 Idiopathic chronic gout of foot without tophus, unspecified laterality M1A.0790 Gout site: foot Gout etiology: idiopathic Chronicity: chronic Laterality: unspecified laterality Presence of tophus: without tophus Aneurysm of ascending aorta without rupture I71.21 Presence of rupture: without rupture Briscoe's esophagus without dysplasia K22.70 Briscoe's esophagus type: without dysplasia Chronic right-sided heart failure I50.812 Essential hypertension I10 Pre-diabetes R73.03 Additional Codes JEANNETTE-7 Assessment Billing - JEANNETTE-7 Assessment Tool: JEANNETTE-7 Assessment 99975 ([id number]) Assessment & Plan Assessment & Plan (1) Idiopathic peripheral neuropathy: Code(s): G60.9 - Hereditary and idiopathic neuropathy, unspecified Category: Medical (2) Toe pain, right: Code(s): M79.674 - Pain in right toe(s) Category: Medical (3) Gout: Code(s): M10.9 - Gout, unspecified Category: Medical Qualifiers: Gout site: foot Gout etiology: idiopathic Chronicity: chronic Laterality: unspecified laterality Presence of tophus: without tophus Qualified Code(s): M1A.0790 - Idiopathic chronic gout, unspecified ankle and foot, without tophus (tophi) (4) Ascending aortic aneurysm: Code(s): I71.21 - Aneurysm of the ascending aorta, without rupture Category: Medical Qualifiers: Presence of rupture: without rupture Qualified Code(s): I71.21 - Aneurysm of the ascending aorta, without rupture (5) Briscoe esophagus: Code(s): K22.70 - Briscoe's esophagus without dysplasia Category: Medical Qualifiers: Briscoe's esophagus type: without dysplasia Qualified Code(s): K22.70 - Briscoe's esophagus without dysplasia (6) Chronic right-sided heart failure: Code(s): I50.812 - Chronic right heart failure Category: Medical (7) Essential hypertension: Code(s): I10 - Essential (primary) hypertension Category: Medical (8) Pre-diabetes: Code(s): R73.03 - Prediabetes Category: Medical Plan History The patient is a 69-year-old male presenting for regular follow-up appointment and has pain in his right middle toe Few days ago patient lost his nail, initially it was bleeding but now the bleeding has stopped And on examination there is no inflammation or infection Other toenails are overgrown patient is having difficulty clipping them - He has a current regimen involving Gabapentin 300 mg t.i.d., for neuropathy management through PCP office Patient is prediabetic we will check hemoglobin A1c Only medications from PCP office are allopurinol, for gout, indomethacin as needed for flare-up of gout and gabapentin for peripheral neuropathy pain. Patient is seeing cardiology for ascending aortic aneurysm last CTA 2021, showed aortic size of 4.7 cm x 4.7 cm. No change from 2020. Obstructive sleep apnea: Patient is using CPAP machine regularly Blood pressure management through cardiology office Patient also have a chronic right heart failure and coronary artery calcifications seen on CAT scan He is taking atorvastatin 40 mg for lipid control, and metoprolol 200 mg through Cardiology along with nifedipine 90 mg for blood pressure Patient is also seeing Gastroenterology , patient have Briscoe's esophagus and will be having EGD in February, IBS is stable BMI is elevated , patient is having difficulty losing weight Follow-up 6 months . Patient Instructions - See a foot doctor (air pollution control engineer) for evaluation of toenail condition. - Keep the area clean and covered with a sock if necessary. - Monitor for signs of infection such as increased redness or pus. - Continue taking Gabapentin as prescribed. - Schedule a follow-up in six months as discussed. - continue other medication as prescribed Orders: Referrals Podiatry Referral M79.626 - Pain in right toe(s) Medications: Refilled gabapentin 300 mg PO Q8H 90 days 270 caps 0RF
[2024-05-14 12:10] VITALS: BP 132/78; PULSE 70; O2SAT 98; BMI 39.6
== END 2024-05-14 12:43 | disposition home or self-care (01) ==
LOC: HO.HMCC 12:08
PROVIDERS: PCP Internal Medicine; Visit Provider Internal Medicine
DX: R73.03 Prediabetes (principal); I71.21 Aneurysm of the ascending aorta, without rupture; I50.812 Chronic right heart failure; G60.9 Hereditary and idiopathic neuropathy, unspecified; K22.70 Barrett's esophagus without dysplasia; M79.674 Pain in right toe(s); M1A.0790 Idiopathic chronic gout, unspecified ankle and foot, without tophus (tophi); I10 Essential (primary) hypertension

== ENCOUNTER → 2024-05-14 12:08 | Outpatient (BNVA) | payer MEDICARE, BC, SELFPAY | PROVIDERS: PCP Internal Medicine; Visit Provider Internal Medicine | DX: G60.9 Hereditary and idiopathic neuropathy, unspecified (principal); M79.674 Pain in right toe(s); M1A.0790 Idiopathic chronic gout, unspecified ankle and foot, without tophus (tophi); I71.21 Aneurysm of the ascending aorta, without rupture; K22.70 Barrett's esophagus without dysplasia; I11.0 Hypertensive heart disease with heart failure; I50.812 Chronic right heart failure; R73.03 Prediabetes | CPT/HCPCS: 96127; 99212 ==

== ENCOUNTER 2024-06-12 10:09 | Outpatient (REF) | payer MEDICARE, BC, SELFPAY ==
--- OUTSIDE RECORDS SUMMARY | 2024-06-12 10:11 | XMS_ITS | Patient Health Record ---
Author Organization [facility] Address [address] [place] [address] Care Team Providers Care Spool Sorter Name Role Phone Partha POLANCO, Conchita Primary Care Provider Susan Weber Unavailable [phone] Partha Arango Unavailable Unavailable Reason For Referral No Information Encounters Encounter Location Date Provider Diagnosis [facility] [address] [place] [address] 05/27/2024 Susan Gomes Plan Of Treatment Next Appt Details Provider Name:Susan ty, 08/17/2024 01:00:00 PM, [address] [facility], [facility] [address], [place], [address], Insurance Providers Payer Name Payer Address Payer Phone Subscriber Number Group Number Insured Name Patient Relationship to Insured Coverage Start Date Coverage End Date [employer] Medicare Open [address] [place] [address] [id number] Parth Alek Self - patient is the insured [facility] [address] [place] [address] [phone] [id number] Parth Alek Self - patient is the insured
--- OUTSIDE RECORDS SUMMARY | 2024-06-12 10:11 | XMS_ITS ---
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 Generated for Printi ng/Faxing/eTransmitting on:?06/12/2024 10:11 AM EDT
[2024-06-12 11:46] LABS: Anion Gap 13 (12-20); Blood Urea Nitrogen 15 mg/dL (9-16); Calcium 9.9 mg/dL (8.4-10.2); Carbon Dioxide 28 mmol/L (22-29); Chloride 105 mmol/L (96-108); Estimated Glomerular Filt Rate > 60; Glucose Random 108 mg/dL (60-115); Sodium 142 mmol/L (135-145)
== END 2024-06-12 10:10 | disposition home or self-care (01) ==
LOC: HO.LAB 10:09
PROVIDERS: Internal Medicine; PCP Internal Medicine; Visit Provider Internal Medicine
DX: I71.21 Aneurysm of the ascending aorta, without rupture (principal)
CPT/HCPCS: 36415; 80048

== ENCOUNTER 2024-06-14 07:33 | Outpatient (REF) | payer MEDICARE, BC, SELFPAY ==
--- NOTE | ~2024-06-14 | CT_ITS ---
CLINICAL HISTORY: I71.21 - Aneurysm of the ascending aorta, without rupture CT angiography of the chest with IV contrast. 3D/MIP post processing reconstructions were performed. COMPARISON: CT angiogram chest dated 06/16/23 at 09:50 EDT FINDINGS: No evidence of thoracic aortic dissection. Aortic measurements: Aortic valve: 3.1 x 3.1 cm (motion limited) Sino-tubular junction: 3.5 x 3.9 cm (motion limited) Ascending aorta at the main pulmonary trunk: 4.5 x 4.6 cm Ascending aorta just proximal to the aortic arch: 3.9 cm. Mid aortic arch: 3.5 cm. Distal to the aortic arch: 3.0 cm. Descending aorta at the main pulmonary trunk 2.8 x 3.0 cm Diaphragmatic hiatus: 2.9 cm Visualized thyroid is unremarkable. No supraclavicular or axillary lymphadenopathy. Main pulmonary artery is enlarged measuring up to 3.2 cm. This can be associated with pulmonary hypertension. Coronary artery calcifications and/or stents present within the LAD, circumflex and RCA. No pericardial effusion. [place] radiopaque objects present within the distal esophagus measuring 0.9 cm in length, most likely representing a swallowed pill. No pleural effusion. Minimal atelectasis versus scarring along the mid lung. Trachea and central airways are clear. No significant bronchial wall thickening. No bronchiectasis. Multiple cholelithiasis present within the contracted gallbladder. No pericholecystic inflammatory changes. Bilateral renal cystic lesions measuring up to 6.4 cm on the left. Mild spondylosis. No acute fracture or suspicious bone lesion. IMPRESSION: 1. Ascending aortic ectasia measuring up to 4.6 cm, stable. 2. Coronary artery atherosclerosis. Enlarged main pulmonary artery can be associated with pulmonary hypertension. 3. Radiopaque object present within the distal esophagus measuring up to 0.9 cm in length, most likely representing a swallowed pill. Recommend correlation clinically. This document has been electronically signed by: Erick Reid MD on 06/14/2024 13:35:14
--- OUTSIDE RECORDS SUMMARY | 2024-06-14 07:35 | XMS_ITS | Patient Health Record ---
Author Organization [facility] Address [address] [place] [address] Care Team Providers Care Algologist Name Role Phone Partha POLANCO, Conchita Primary Care Provider Susan Weber Unavailable [phone] Partha Arnago Unavailable Unavailable Reason For Referral No Information Encounters Encounter Location Date Provider Diagnosis [facility] [address] [place] [address] 05/27/2024 Susan Gomes Plan Of Treatment Next Appt Details Provider Name:Susan ty, 08/17/2024 01:00:00 PM, [address] [facility], [facility] [address], [place], [address], Insurance Providers Payer Name Payer Address Payer Phone Subscriber Number Group Number Insured Name Patient Relationship to Insured Coverage Start Date Coverage End Date [employer] Medicare Open [address] [place] [address] [id number] Parth Alek Self - patient is the insured [facility] [address] [place] [address] [phone] [id number] Parth Alek Self - patient is the insured
--- OUTSIDE RECORDS SUMMARY | 2024-06-14 07:35 | XMS_ITS ---
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 Generated for Printi ng/Faxing/eTransmitting on:?06/14/2024 07:35 AM EDT
[2024-06-14] MEDS: iohexoL 350 MG/ML 75 ML INFUS..BTL 70 ML IV (08:14)
== END 2024-06-14 07:34 | disposition home or self-care (01) ==
LOC: HO.CT 07:33
PROVIDERS: PCP Internal Medicine; Visit Provider Internal Medicine
DX: I71.21 Aneurysm of the ascending aorta, without rupture (principal)
CPT/HCPCS: 71275; Q9967

== ENCOUNTER → 2024-06-14 07:34 | Outpatient (BNV) | payer MEDICARE, BC, SELFPAY | PROVIDERS: PCP Internal Medicine; Visit Provider Radiology Diagnostic Radiology | DX: I77.819 Aortic ectasia, unspecified site (principal); I25.10 Atherosclerotic heart disease of native coronary artery without angina pectoris | CPT/HCPCS: 71275 ==

== ENCOUNTER 2024-06-16 15:24 | Outpatient (AMB) | payer MEDICARE, BC, SELFPAY ==
[2024-06-16 15:34] VITALS: BP 102/64; PULSE 62; O2SAT 94; BMI 39.5
--- NOTE | 2024-06-16 15:34 | A.OFFVIS_ITS ---
Vital Signs 06/16/24 15:34 Height 5 ft 7 in Weight 252 lb 6.868 oz BMI 39.5 BP 102/64 Blood Pressure Location Lt brachial Position Sitting Pulse 62 Pulse Source Pulse Oximeter Pulse Oximetry (%) 94 Oxygen Delivery Method Room Air Intake Visit Reasons: vy Intake Note: pt is here for follow up of VY and has a chip machine and sent back one chip already. Custodian Required: No Allergies lisinopril [LISINOPRIL] Allergy (Severe, Verified 06/16/24 15:52) TONGUE SWELLING, CONFUSION environmental allergies Allergy (Unknown, Verified 06/16/24 15:52) Unknown Medication List - Last Reconciled 06/16/24 by Benjamin Amaya MD allopurinol 300 mg PO DAILY aspirin 81 mg PO DAILY atorvastatin 40 mg PO BEDTIME brimonidine 0.2% 1 drp ophthalmic-Left BID cholecalciferol (vitamin D3) 25 mcg PO DAILY dorzolamide-timolol 22.3-6.8 mg/mL 1 drp ophthalmic (eye) BEDTIME ferrous sulfate 325 mg PO DAILY furosemide 20 mg PO DAILY gabapentin 300 mg PO Q8H 90 days latanoprost 0.005% 1 drp ophthalmic (eye) BEDTIME metoprolol succinate ER 200 mg PO DAILY multivitamin 1 tab PO DAILY nifedipine ER 60 mg PO DAILY pantoprazole 40 mg PO DAILY Do you need a note to return to daycare/school/sports/work: No HPI HPI vy: Details: Alek Antunez is 69 years old gentleman with gross obesity, round face and diagnosis of obstructive sleep apnea. He is a long-time user of CPAP, and uses it regularly every night. He claims that he tries to use it for more than 4 hours every night. His CPAP device is old and does not have capability of monitoring the compliance online. He sense chip to the [employer] and the print the compliance for us. His weight has remained unchanged. He is not able to do much walking or exercise. [facility] Medical History Glaucoma Obesity (BMI 30-39.9) Internal derangement of right knee Environmental allergies Multiple lacunar infarcts Transient alteration of awareness Routine medical exam History of TIA (transient ischemic attack) On beta miguel at home History of GI bleed Chronic right heart failure Nocturnal hypoxemia VY (obstructive sleep apnea) Chronic heart failure with preserved ejection fraction (HFpEF) Essential hypertension C. difficile diarrhea Shoulder injury Lumbar spondylosis Chronic diarrhea History of alcoholism Idiopathic peripheral neuropathy Morbid obesity Pre-diabetes Diarrhea Arthritis Back pain History of Usfbw-Rjskrderl-Mlptf (WPW) syndrome Gout Hiatal hernia History of esophageal varices GERD (gastroesophageal reflux disease) Ascending aorta dilation HTN (hypertension) Surgical History Hx of tooth extraction S/P PICC central line placement Hx of total knee replacement H/O cardiac radiofrequency ablation History of esophagogastroduodenoscopy (EGD) History of colonoscopy Family History Father Diabetes mellitus Social History Household Members: Significant Other and Family Household Members Other:: BROTHER Housing: House Housing Other:: lives with s/o and brother Are you a primary interior plant caretaker to a significant other at home: No Do you presently have visiting nurse or other home services: No Alcohol intake: former Year quit: 1998 Comment: aware of trip hazards Patient Tobacco Use Status: Never used Tobacco e-Cigarette/Vaping Use: Never Used Second Hand Smoke Exposure: Yes Advance Directives Date on File: 05/03/20 service: No Current occupational status: retired 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 Current occupational exposures/hazards: Yes Cognitive needs: No Hearing needs: No Vision needs: Yes Review of Systems Const All systems reviewed & are unremarkable except as noted in HPI and below Eyes Reports no additional complaints ENT Reports no additional complaints Card Denies chest pain, Denies irregular heart rhythm and Denies leg edema Resp Reports no additional complaints, Denies cough and Denies wheezing GI Reports constipation and Reports GI cramping (OFF AND ON) Reports no additional complaints Musc Reports back pain and Reports arthralgias (POST KNEE SURGERY, STILL WALKING WITH A WALKER.) Skin/Breast Reports system reviewed and no additional complaints, except as documented Neuro Reports no additional complaints Psych Reports no additional complaints Aller/Immun Denies wheezing Physical Exam Vital Signs: Last Vital Signs Pulse 62 06/16/24 15:34 BP 102/64 06/16/24 15:34 Pulse Ox 94 06/16/24 15:34 Oxygen Delivery Method Room Air 06/16/24 15:34 BMI result Body Mass Index 39.5 Const General: comfortable, no acute distress, alert and awake Orientation/consciousness: patient oriented x3 HEENT Head: Yes normal to inspection General nose exam: No nasal polyps present and No nasal discharge present Face and sinus: Yes sinuses nontender Mouth: oropharynx abnormals (NARROW AND CROWDED, MALLAMPATI CLASS 4) Throat: Yes posterior oropharynx normal Eyes General: appearance normal, both eyes and all related structures Neck Neck: Yes normal visual inspection, Yes no lymphadenopathy, Yes trachea midline and Yes no JVD Thyroid: Thyroid normal Chest Chest palpation & inspection: normal inspection of the chest, normal palpation of entire chest wall and no tenderness Resp Effort & Inspection: normal respiratory effort Auscultation: clear to auscultation bilaterally, no crackles and no wheezes Cardio Palpation: normal PMI Rate: regular rate Rhythm: regular rhythm Heart sounds: no gallops and no murmurs GI Palpation (GI): Soft to palpation, nontender, No hepatosplenomegaly present and no masses Auscultation: normal bowel sounds Back/Spine/Pelvis Thoracic/Lumbar Spine: thoracic and lumbar spine normal to inspection Skin General skin exam: no rashes or lesions noted Neuro General: patient oriented x3 and no focal motor deficits Cranial nerves: Yes CN's II-XII intact bilaterally Extrem Other: S/P RIGHT KNEE REPLACEMENT. SCAR IN ANTERIOR ASPECT WHICH IS WELL HEALED General: Yes normal to inspection, Yes no clubbing, cyanosis or edema and Yes no calf tenderness Psych Appearance: grossly normal and well kempt Speech and movement: Normal speech and movement present Assessment & Plan Assessment & Plan (1) Obesity (BMI 30-39.9): Comment: He remains grossly obese. Not able to lose much weight as he can not do much exercise or walk around. Tries to watch his. Diet as much as he can Code(s): E66.9 - Obesity, unspecified Category: Medical Plan: Again talked to him about the diet and try to cut down the use of carbohydrates. (2) VY (obstructive sleep apnea): Comment: MILD TO MODERATE DEGREE OF OBSTRUCTIVE SLEEP APNEA. PATIENT HAS BEEN ON THE CPAP AND REMAINS VERY COMPLIANT MOST OF THE TIME, EXCEPT WHEN HE IS TRAVELING OF OR ON SOME NIGHTS WHEN HE IS WORKING. COMPLIANCE DATA IS NOT AVAILABLE BUT HE CLAIMS THAT HE USES EVERY NIGHT MISSING ONLY ONCE IN A WHILE. Code(s): G47.33 - Obstructive sleep apnea (adult) (pediatric) Category: Medical Plan: ENCOURAGED TO KEEP ON USING CPAP EVERY NIGHT AT LEAST FOR 5 HOURS PER NIGHT. HE IS WILLING TO DO THAT. (3) Nocturnal hypoxemia: Comment: PATIENT DID HAVE EVIDENCE OF NOCTURNAL HYPOXEMIA ON HIS SLEEP STUDY THEN HE STARTED USING THE CPAP, REGULARLY AND IT WAS EXPECTED THAT THE NOCTURNAL HYPOXEMIA WOULD RESOLVE. HE DOES NOT HAVE OXYGEN AT HOME OVERNIGHT OXIMETRY RECORDING WHILE USING THE CPAP SHOWED THAT THERE WAS NO SIGNIFICANT NOCTURNAL HYPOXEMIA. Code(s): G47.34 - Idiopathic sleep related nonobstructive alveolar hypoventilation Category: Medical Plan: NO NEED OF USING OXYGEN AT NIGHT Coding Level of Care Code Est Pt Level 3 (83443) Diagnoses Obesity (BMI 30-39.9) E66.9 VY (obstructive sleep apnea) G47.33 Nocturnal hypoxemia G47.34
== END 2024-06-16 15:57 | disposition home or self-care (01) ==
LOC: HO.HPS 15:24
PROVIDERS: PCP Internal Medicine; Visit Provider Internal Medicine
DX: E66.9 Obesity, unspecified (principal); G47.33 Obstructive sleep apnea (adult) (pediatric); G47.34 Idiopathic sleep related nonobstructive alveolar hypoventilation
CPT/HCPCS: 99213

== ENCOUNTER → 2024-06-16 15:24 | Outpatient (BNVA) | payer MEDICARE, BC, SELFPAY | PROVIDERS: PCP Internal Medicine; Visit Provider Internal Medicine | DX: G47.33 Obstructive sleep apnea (adult) (pediatric) (principal); G47.34 Idiopathic sleep related nonobstructive alveolar hypoventilation; E66.9 Obesity, unspecified; Z99.89 Dependence on other enabling machines and devices; Z68.39 Body mass index [BMI] 39.0-39.9, adult | CPT/HCPCS: 99212 ==

== ENCOUNTER 2024-06-21 13:05 | Outpatient (AMB) | payer MEDICARE, BC, SELFPAY ==
[2024-06-21 13:11] VITALS: BP 96/64; PULSE 62; BMI 38.0
--- NOTE | 2024-06-21 13:11 | A.OFFVIS_ITS ---
Vital Signs 06/21/24 13:11 Height 5 ft 7 in Weight 242 lb 8.136 oz BMI 38.0 BP 96/64 Blood Pressure Location Lt brachial Position Sitting Pulse 62 Intake Visit Reasons: 8 month follow up Intake Note: Alek presents in the office as a 8 month follow up. CC: He states that he gets diarrhea on and off. This weekend he had it both days in a row and he was concerned because he was having accidents and throwing away clothes. HE was told recently due to a CT scan that a pill was stuck in his throat. Was told that as long as it is not bothering him that he will just let it dissolve. Allergies lisinopril [LISINOPRIL] Allergy (Severe, Verified 06/21/24 13:12) TONGUE SWELLING, CONFUSION environmental allergies Allergy (Unknown, Verified 06/21/24 13:12) Unknown HPI HPI 8 month follow up: Details: 69 yr old m being seen for f/u RECAP: He had diarrhea and had c diff pos initially treated with flagyl but not better then on vancomycin and completed course he still has diarrhea has to take imodium to control it otherwise it can be bad his brother did have c diff as well Due to his ongoing sx I did re order c diff testing EGd/colon- 12/2019--barretts and tubular adenomas repeat C diff 08/2020--negative EGD/colo 03/02 Endoscopy Findings: barretts esophageal stricture hiatal hernia Colonoscopy Findings: diverticulosis colon polyps x 5 internal hemorrhoids BX: barretts, tissue cypher low risk tubular adenomata repeat 3 yrs INTERIM: he has been noting diarrhea last several days no blood in stools no abdominal pain now, but had some mid abdo pain earlier no nausea or vomiting appetite is good no sick contacts no recent abx last 3 months--no new meds he is off warfarin now EXAM: GENERAL: The patient is well developed and nontoxic. VITAL SIGNS:see workflow HEENT: Nonicteric sclerae, PERRLA, EOMI. Oropharynx clear. Moist mucous membranes. Conjunctivae appear well perfused. No thyroid mass. CHEST: Chest wall is nontender. HEART: Regular rate and rhythm without murmurs. LUNGS: Clear to auscultation bilaterally. ABDOMEN: Soft, positive bowel sounds, nontender, no organomegaly.no flank tenderness SKIN: No rash, no excessive bruising, petechiae, or purpura. NEUROLOGIC: Cranial nerves II-XII intact without motor/sensory deficit. Psych: normal affect A/P: 1/ Hx of colon polyps 2/ barretts esophagus with inflammation, chronic--low risk on tissue cypher PLAN 1/ repeat EGD with tissue cypher and wats in 3-4 yrs 2/ repeat colonoscopy----3-4 yrs 3/ cont ppi with MV and vit D supplement 4/ stool testing for GI PCR and c diff, lactoferrin - elastase --if neg then sigmoidoscopy and bx [facility] Medical History Glaucoma Obesity (BMI 30-39.9) Internal derangement of right knee Environmental allergies Multiple lacunar infarcts Transient alteration of awareness Routine medical exam History of TIA (transient ischemic attack) On beta miguel at home History of GI bleed Chronic right heart failure Nocturnal hypoxemia VY (obstructive sleep apnea) Chronic heart failure with preserved ejection fraction (HFpEF) Essential hypertension C. difficile diarrhea Shoulder injury Lumbar spondylosis Chronic diarrhea History of alcoholism Idiopathic peripheral neuropathy Morbid obesity Pre-diabetes Diarrhea Arthritis Back pain History of Ixwkm-Mwaytpvrg-Flbwe (WPW) syndrome Gout Hiatal hernia History of esophageal varices GERD (gastroesophageal reflux disease) Ascending aorta dilation HTN (hypertension) Surgical History Hx of tooth extraction S/P PICC central line placement Hx of total knee replacement H/O cardiac radiofrequency ablation History of esophagogastroduodenoscopy (EGD) History of colonoscopy Family History Father Diabetes mellitus Social History Household Members: Significant Other and Family Household Members Other:: BROTHER Housing: House Housing Other:: lives with s/o and brother Are you a primary medicare interviewer to a significant other at home: No Do you presently have visiting nurse or other home services: No Alcohol intake: former Year quit: 1998 Comment: aware of trip hazards Patient Tobacco Use Status: Never used Tobacco e-Cigarette/Vaping Use: Never Used Second Hand Smoke Exposure: Yes Advance Directives Date on File: 05/03/20 service: No Current occupational status: retired 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 Today K51.50 - Left sided colitis without complications, R19.8 - Other specified symptoms and signs involving the digestive system and abdomen GI Panel Today R19.7 - Diarrhea, unspecified, R19.8 - Other specified symptoms and signs involving the digestive system and abdomen Pancreatic Elastase-1 Today R19.8 - Other specified symptoms and signs involving the digestive system and abdomen CDiff Gene PCR Today R19.7 - Diarrhea, unspecified, R19.8 - Other specified symptoms and signs involving the digestive system and abdomen Coding Level of Care Code Est Pt Level 4 (95184) Diagnoses Abnormal bowel habits R19.8
--- OUTSIDE RECORDS SUMMARY | 2024-06-21 15:00 | XMS_ITS ---
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 Generated for Printi ng/Faxing/eTransmitting on:?06/21/2024 03:00 PM EDT
--- OUTSIDE RECORDS SUMMARY | 2024-06-21 15:00 | XMS_ITS | Patient Health Record ---
Author Organization [facility] Address [address] [place] [address] Care Team Providers Care Strategic Debriefing Specialist Name Role Phone Partha POLANCO, Conchita Primary Care Provider Susan Weber Unavailable [phone] Partha Arango Unavailable Unavailable Reason For Referral No Information Encounters Encounter Location Date Provider Diagnosis [facility] [address] [place] [address] 05/27/2024 Susan Gomes Plan Of Treatment Next Appt Details Provider Name:Susan ty, 08/17/2024 01:00:00 PM, [address] [facility], [address], [place], [address], Insurance Providers Payer Name Payer Address Payer Phone Subscriber Number Group Number Insured Name Patient Relationship to Insured Coverage Start Date Coverage End Date [employer] Medicare Open [address] [place] [address] [id number] Parth Alek Self - patient is the insured [facility] [address] [place] [address] [phone] [id number] Parth Alek Self - patient is the insured
== END 2024-06-21 13:36 | disposition home or self-care (01) ==
PROVIDERS: PCP Internal Medicine; Visit Provider Internal Medicine Gastroenterology
DX: R19.8 Other specified symptoms and signs involving the digestive system and abdomen (principal)
CPT/HCPCS: 99214

== ENCOUNTER → 2024-06-21 13:05 | Outpatient (BNVA) | payer MEDICARE, BC, SELFPAY | PROVIDERS: PCP Internal Medicine; Visit Provider Internal Medicine Gastroenterology | DX: R19.8 Other specified symptoms and signs involving the digestive system and abdomen (principal) | CPT/HCPCS: 99212 ==

== ENCOUNTER 2024-06-24 12:49 | Outpatient (AMB) | payer MEDICARE, BC, SELFPAY ==
--- NOTE | 2024-06-24 12:51 | MHC.OFFVIS ---
Vital Signs 06/24/24 12:53 Height 5 ft 7 in Weight 250 lb 7.122 oz BMI 39.2 BP 90/62 Blood Pressure Location Lt brachial Position Sitting Pulse 67 Pulse Source Pulse Oximeter Intake Visit Reasons: 6m follow up/chest CT scan Referral Coordinator Required: No Accompanied by: Self / Same As Patient Allergies lisinopril [LISINOPRIL] Allergy (Severe, Verified 06/21/24 13:12) TONGUE SWELLING, CONFUSION environmental allergies Allergy (Unknown, Verified 06/21/24 13:12) Unknown Medication List - Last Reconciled 06/24/24 by Otilio Shaffer MD allopurinol 300 mg PO DAILY aspirin 81 mg PO DAILY atorvastatin 40 mg PO BEDTIME brimonidine 0.2% 1 drp ophthalmic-Left BID cholecalciferol (vitamin D3) 25 mcg PO DAILY dorzolamide-timolol 22.3-6.8 mg/mL 1 drp ophthalmic (eye) BEDTIME ferrous sulfate 325 mg PO DAILY furosemide 20 mg PO DAILY gabapentin 300 mg PO Q8H 90 days latanoprost 0.005% 1 drp ophthalmic (eye) BEDTIME metoprolol succinate ER 200 mg PO DAILY multivitamin 1 tab PO DAILY nifedipine ER 60 mg PO DAILY pantoprazole 40 mg PO DAILY HPI Comments Details: Alek returns for follow-up regarding congestive heart failure as well as ascending aortic aneurysm. History of WPW syndrome/ablation in , but no details available. Since last seen, no cardiac symptoms. He states he feels good. He is concerned about his blood pressure however as he states it has gone down recently. He believes even if it does not take his blood pressure medications, it is not going too high. Hence he is wondering if he can cut back on some. [facility] Medical History Glaucoma Obesity (BMI 30-39.9) Internal derangement of right knee Environmental allergies Multiple lacunar infarcts Transient alteration of awareness Routine medical exam History of TIA (transient ischemic attack) On beta miguel at home History of GI bleed Chronic right heart failure Nocturnal hypoxemia VY (obstructive sleep apnea) Chronic heart failure with preserved ejection fraction (HFpEF) Essential hypertension C. difficile diarrhea Shoulder injury Lumbar spondylosis Chronic diarrhea History of alcoholism Idiopathic peripheral neuropathy Morbid obesity Pre-diabetes Diarrhea Arthritis Back pain History of Mmefa-Gercwktge-Cmuuf (WPW) syndrome Gout Hiatal hernia History of esophageal varices GERD (gastroesophageal reflux disease) Ascending aorta dilation HTN (hypertension) Surgical History Hx of tooth extraction S/P PICC central line placement Hx of total knee replacement H/O cardiac radiofrequency ablation History of esophagogastroduodenoscopy (EGD) History of colonoscopy Family History Father Diabetes mellitus Social History Household Members: Significant Other and Family Household Members Other:: BROTHER Housing: House Housing Other:: lives with s/o and brother Are you a primary patient centered care specialist to a significant other at home: No Do you presently have visiting nurse or other home services: No Alcohol intake: former Year quit: 1998 Comment: aware of trip hazards Patient Tobacco Use Status: Never used Tobacco e-Cigarette/Vaping Use: Never Used Second Hand Smoke Exposure: Yes Advance Directives Date on File: 05/03/20 service: No Current occupational status: retired 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 Current occupational exposures/hazards: Yes Cognitive needs: No Hearing needs: No Vision needs: Yes Review of Systems Const Denies chills, Denies fatigue, Denies fever(s), Denies frequent falls, Denies weakness, Denies weight gain and Denies weight loss ENT Denies dizziness Card Denies chest pain, Denies leg edema, Denies lightheadedness, Denies palpitations, Denies dyspnea and Denies dyspnea on exertion Resp Denies cough, Denies dyspnea and Denies dyspnea on exertion GI Denies hematochezia Musc Denies abnormal gait, Denies muscle weakness, Denies numbness, Denies radiating pain into limb and Denies tingling Neuro Denies abnormal gait, Denies dizziness, Denies frequent falls, Denies numbness, Denies tingling and Denies weakness Endo Denies fatigue and Denies palpitations Physical Exam Vital Signs: Last Vital Signs Pulse 67 06/24/24 12:53 BP 90/62 06/24/24 12:53 BMI result Body Mass Index 39.2 Const General: comfortable and no acute distress Orientation/consciousness: patient oriented x3 HEENT Other: Unremarkable Head: Yes normal to inspection Neck Neck: Yes normal visual inspection Chest Chest palpation & inspection: normal inspection of the chest Resp Auscultation: clear to auscultation bilaterally Cardio Palpation: normal PMI Heart sounds: S1 normal heart sound present, S2 normal heart sound present, no gallops, no murmurs and no rubs GI Palpation (GI): Soft to palpation Back/Spine/Pelvis Other: unremarkable Skin General skin exam: no rashes or lesions noted Neuro General: patient oriented x3 Extrem General: Yes normal to inspection Psych Mental Status: mental status grossly normal Assessment & Plan Assessment & Plan (1) Chronic right heart failure: Code(s): I50.812 - Chronic right heart failure Category: Medical Plan: Stable. No recent issues. Continue diuretics. (2) Coronary artery calcification seen on CAT scan: Code(s): I25.10 - Atherosclerotic heart disease of [place] coronary artery without angina pectoris Category: Medical Plan: CT chest shows coronary calcification. We discussed about this today. Myocardial perfusion imaging unremarkable. Clinically, no angina. Continue statins. LDL is well controlled. (3) Ascending aortic aneurysm: Code(s): I71.21 - Aneurysm of the ascending aorta, without rupture Category: Medical Qualifiers: Presence of rupture: without rupture Qualified Code(s): I71.21 - Aneurysm of the ascending aorta, without rupture Plan: In the most recent CT scan, ascending aortic size 4.6 cm. Overall, stable. In the echocardiogram, described to be 4.4 cm, likely underestimated. In the future, possibly just follow up on CT scans due to size discrepancies. (4) Essential hypertension: Code(s): I10 - Essential (primary) hypertension Category: Medical Plan: Due to decrease in blood pressure, we can try to use a low dose of beta-miguel. He can take metoprolol ER 100 mg daily and monitor his blood pressure/heart rate and let us know. Also advised him to let us know if any symptoms like angina or palpitations. He understands that. (5) VY (obstructive sleep apnea): Code(s): G47.33 - Obstructive sleep apnea (adult) (pediatric) Category: Medical Plan: Continue CPAP. Plan During the consultation, we discussed the impact of BP medication dosage on blood pressure readings, and concurring with reducing metoprolol was reached. The potential risk for increased cardiac symptoms such as rebound tachycardia or angina was communicated, acknowledging angina prevention through symptomatic balance among antihypertensives. Highlighting the medical importance of regular imaging reviews remains essential for any preemptive surgical interventions if blood vessel dilations approach critical sizes. The patient consented to medication adjustments, understood the risk profile provided, and ensures facilitation of reported regular updates via telemedicine or direct visits. Patient was informed and verbally consented to the use of an ambient scribe for clinic note documentation during this visit. Medications: New metoprolol succinate ER 100 mg PO DAILY 90 tabs 1RF Discontinued metoprolol succinate ER Discontinued Reason: Doctor's Order 200 mg PO DAILY 90 tabs 1RF Patient Instructions: - Monitor and record your blood pressure and pulse regularly at home, especially when altering medication dosages. - Take the new prescribed dosage of metoprolol as 100 mg and ensure to discuss any chest discomfort promptly. - Continue your regular walking routine and gradually increase as tolerated, while observing any excessive tiresomeness. - Follow up with blood pressure readings and feedback online or telephone reporting as coordinated. - Report any acute chest pain or unexpected discomfort immediately to evaluate the cardiovascular response. - Plan for a follow-up in six months, or sooner if symptoms progress or any noticeable changes occur in your condition. Coding Level of Care Code Est Pt Level 4 (70588) Diagnoses Chronic right heart failure I50.812 Coronary artery calcification seen on CAT scan I25.10 Aneurysm of ascending aorta without rupture I71.21 Presence of rupture: without rupture Essential hypertension I10 VY (obstructive sleep apnea) G47.33
[2024-06-24 12:53] VITALS: BP 90/62; PULSE 67; BMI 39.2
--- OUTSIDE RECORDS SUMMARY | 2024-06-24 15:36 | XMS_ITS | Patient Health Record ---
Author Organization [facility] Address [address] [place] [address] Care Team Providers Care Roustabout Pusher Name Role Phone Partha POLANCO, Conchita Primary Care Provider Susan Weber Unavailable [phone] Partha Arango Unavailable Unavailable Reason For Referral No Information Encounters Encounter Location Date Provider Diagnosis [facility] [address] [place] [address] 05/27/2024 Susan Gomes Plan Of Treatment Next Appt Details Provider Name:Susan ty, 08/17/2024 01:00:00 PM, [address] [facility], [facility] [address], [place], [address], Insurance Providers Payer Name Payer Address Payer Phone Subscriber Number Group Number Insured Name Patient Relationship to Insured Coverage Start Date Coverage End Date Aetna Medicare Open [address] [place] [address] [id number] Parth Alek Self - patient is the insured [facility] [address] [place] [address] [phone] [id number] Parth Alek Self - patient is the insured
--- OUTSIDE RECORDS SUMMARY | 2024-06-24 15:37 | XMS_ITS ---
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 Generated for Printi ng/Faxing/eTransmitting on:?06/24/2024 03:36 PM EDT
== END 2024-06-24 13:13 | disposition home or self-care (01) ==
LOC: HO.HCS 12:50
PROVIDERS: PCP Internal Medicine; Visit Provider Internal Medicine
DX: I50.812 Chronic right heart failure (principal); I25.10 Atherosclerotic heart disease of native coronary artery without angina pectoris; I71.21 Aneurysm of the ascending aorta, without rupture; I10 Essential (primary) hypertension; G47.33 Obstructive sleep apnea (adult) (pediatric)
CPT/HCPCS: 99214

== ENCOUNTER → 2024-06-24 12:49 | Outpatient (BNVA) | payer MEDICARE, BC, SELFPAY | PROVIDERS: PCP Internal Medicine; Visit Provider Internal Medicine | DX: I50.812 Chronic right heart failure (principal); I25.10 Atherosclerotic heart disease of native coronary artery without angina pectoris; I71.21 Aneurysm of the ascending aorta, without rupture; I10 Essential (primary) hypertension; G47.33 Obstructive sleep apnea (adult) (pediatric) | CPT/HCPCS: 99212 ==

== ENCOUNTER 2024-10-30 12:00 | Outpatient (REF) | payer MEDICARE, BC, SELFPAY ==
--- OUTSIDE RECORDS SUMMARY | 2024-11-01 14:07 | XMS_ITS | Patient Health Record ---
Author Organization [facility] Address [address] [facility] [address] Care Team Providers Care Tube Coverer Name Role Phone Partha POLANCO, Conchita Primary Care Provider UnavailSusan Norris Unavailable [phone] Partha Arango Unavailable Unavailable Allergies Allergen (clinical drug ingredient) Drug/Non Drug Allergy documented on EMR Reaction Allergy Type Onset Date Status lisinopril Lisinopril throat closes up Drug Allergy Active Reason For Referral No Information Medications Medication SIG (Take, Route, Frequency, Duration) Notes Start Date End Date Status NIFEdipine ER 60 MG 1 tablet on an empty stomach Orally Once a day Active Hydrocortisone 2.5 % 1 application Exter gemma to affected areas of itching irritated skin on foot/feet Twice a day; Duration: 30 days Active Pantoprazole Sodium 40 MG 1 tablet 1/2 t o 1 hour before morning meal Orally Once a day Active Furosemide 20 MG 1 tablet Orally Once a day Active Allopurinol 300 MG 1 tablet Orally Once a day Active Ferrous Sulfate 325 (65 Fe) MG 1 tablet Orally Three times a Week Active Metoprolol Succinate 100 MG 1 capsule Or ally Once a day Active Social History Tobacco [...] ast year? No Points 0 Interpretation Negative Problems Problem Type SNOMED Code ICD Code Onset Dates Problem Status W/U Status Risk Notes Problem Stasis dermatitis (disorder) (04985460) Venous stasis dermatitis (I87.2) Active confirmed Vital Signs Blood pressure diastolic 65 mm Hg 08/23/2024 Height 5 ft 7.5inch in 08/23/2024 Blood pressure systolic 130 mm Hg 08/23/2024 Weight 245 lbs 08/23/2024 BMI 37.8 kg/m2 08/23/2024 Encounters Encounter Location Date Provider Diagnosis [facility] [address] 08/23/2024 Susan Gomes Pain in right toe(s) M79.674 ; Onychomycosis B35.1 ; Pain in left toe(s) M79.675 and Venous stasis dermatitis I87.[address] [address] 05/27/2024 Susan Gomes Assessments Encounter Date Diagnosis (ICD Code) Assessment Notes Treatment Notes Treatment Clinical Notes Section Notes 08/23/2024 Pain in right toe(s) (ICD-10 - M79.674) 08/23/2024 Onychomycosis (ICD-10 - B35.1) 08/23/2024 Pain in left toe(s) (ICD-10 - M79.675) 08/23/2024 Venous stasis dermatitis (ICD-10 - I87.2) Plan Of Treatment Next Appt Details Provider Name:Susan Jaramillo karson, 11/23/2024 03:00:00 PM, [address] [address], [place], [address], Insurance Providers Payer Name Payer Address Payer Phone Subscriber Number Group Number Insured Name Patient Relationship to Insured Coverage Start Date Coverage End Date Aetna [address] [place] [address] [id number] PCP Alek Alba Self - patient is the insured [address] [place] [address] Others [address] [place] [address] [phone] [id number] Alek Alba Self - patient is the insured 3 Medical (General) History Medical History History ICD Code Arthritis Back,Hip,and Knee pain Broken bones CAD (Cholesterol) Cataracts covid-19 Diverticulosis Glaucoma Gout Heart disease Hiatal hernia High Blood Pressure Numbness Reflux ( GERD) Stroke Warts Transfusions
[2024-11-01 15:01] LABS: E. coli EAEC Not Detected (Not Detect.); E. coli EPEC Not Detected (Not Detect.); E. coli ETEC Not Detected (Not Detect.); E. coli STEC Not Detected (Not Detect.); Shigella sp./EIEC Not Detected (Not Detect.)
[2024-11-01 15:04] LABS: CDiff Gene PCR NEGATIVE (Negative)
[2024-11-10 03:24] LABS: Lactoferrin, Fecal, Quant. <6.25 mcg/mL (<7.25)
== END 2024-10-30 12:01 | disposition home or self-care (01) ==
LOC: HO.LNP 12:00
PROVIDERS: Visit Provider Internal Medicine Gastroenterology
DX: R19.8 Other specified symptoms and signs involving the digestive system and abdomen (principal); R19.7 Diarrhea, unspecified; K51.50 Left sided colitis without complications
CPT/HCPCS: 82656; 83631; 87493; 87507

== ENCOUNTER 2024-11-19 10:24 | Outpatient (REF) | payer MEDICARE, BC, SELFPAY ==
--- NOTE | ~2024-11-19 | XR_ITS ---
EXAMINATION: XR ABDOMEN KUB CLINICAL INDICATION: R19.8 - Other specified symptoms and signs involving the digestive syste... COMPARISON: None available. TECHNIQUE: AP view of the abdomen. FINDINGS: String of round calcifications across right upper quadrant likely represent gallstones. There is 30 degrees levoscoliosis of the lumbar spine. There is moderate stool in the cecum XR/XR KUB IMPRESSION: Cholelithiasis. Moderate stool in the right colon. Electronically signed by: Sylvester Bowman MD 11/19/2024 11:47 AM EDT
[2024-11-19 11:14] LABS: MANUAL DIFF FLAG NO
[2024-11-19 11:51] LABS: Hematocrit 39.2 % (42.0-52.0); Hemoglobin 14.1 g/dl (14.0-18.0); Imm Gran Abs Auto 0.02 X10*3/uL (0.00-0.03); Imm Gran Pct Auto 0.3 % (0.0-0.4); Lymphocytes Absolute Auto 1.4 X10*3/uL (1.2-4.9); Mean Corpuscular HGB Conc 36.0 g/dl (31.0-36.0); Mean Corpuscular Hemoglobin 31.8 pg (27.0-33.0); Mean Corpuscular Volume 88.5 fL (80.0-98.0); NRBC Abs Auto 0.000 X10*3/uL (0.0-0.012); NRBC Pct Auto 0.0 /100WBC (0.0-0.2); Platelet Count 183 X10*3/uL (160-400); Red Blood Count 4.43 X10*6/uL (4.60-5.80); White Blood Count 6.1 X10*3/uL (4.8-10.8)
[2024-11-19 12:57] LABS: Ferritin 237 ng/mL (20-250)
== END 2024-11-19 10:25 | disposition home or self-care (01) ==
LOC: HO.XRAY 10:24
PROVIDERS: PCP Internal Medicine; Visit Provider Internal Medicine Gastroenterology
DX: K22.70 Barrett's esophagus without dysplasia (principal); R19.8 Other specified symptoms and signs involving the digestive system and abdomen
CPT/HCPCS: 36415; 74018; 82728; 85025; 99212

== ENCOUNTER 2024-11-19 10:24 | Outpatient (AMB) | payer MEDICARE, BC, SELFPAY ==
--- OUTSIDE RECORDS SUMMARY | 2024-08-17 09:00 | XMS_ITS ---
Author Organization [facility] Address [address] [place] [address] Care Team Providers Care Neurology Technician Name Role Phone Partha POLANCO, Conchita Primary Care Provider UnavailSusan Norris Unavailable [phone] Partha Arango Unavailable Unavailable Allergies Allergen (clinical [...] 08/17/2024 Encounters Encounter Location Date Provider Diagnosis [facility] [place] [address] [place] [address] [address] [place] [address] 08/17/2024 Susanjaden Gomes Plan Of Treatment Next Appt Details Provider Name:Susan ty, 11/23/2024 03:00:00 PM, [address] [facility], [address] [address], [place], [address], Progress Notes * Sage KLINEOB:1955 (69 yo M)Acc No.[id number]:08/17/2024 Progress Notes Patient: Alek IRENE Provider: Paulo Gomes DPM :1955 A ge:69 Y S ex:Male Date:08/17/2024 Address:[address] [place], [place] [address] Pcp:Conchita Chavis MD Subjective: * Chief Complaints: [...] enies. C ardiovascular: Pacemaker d enies. M HORSE AND WAGON DRIVER d enies. W PW a dmits. C [...] 0 08/17/2024 Generated for Cadence morgan/Lory/Lianet on: 0 11/19/2024 11:54 AM EDT
--- NOTE | 2024-11-19 10:25 | A.OFFVIS_ITS ---
Vital Signs 11/19/24 10:27 Height 5 ft 7 in Weight 238 lb 1.588 oz BMI 37.3 Intake Visit Reasons: 4 month f.u Intake Note: Alek presents in the office a a 4 month follow up. CC: sent stool sample in - states he is not having any concerns today. Client Project Coordinator Required: No Allergies lisinopril (LISINOPRIL) Allergy (Severe, Verified 11/19/24 10:27) TONGUE SWELLING, CONFUSION environmental allergies Allergy (Unknown, Verified 11/19/24 10:27) Unknown HPI HPI 4 month f.u: Details: 69 yr old m being seen for f/u RECAP: He had diarrhea and had c diff pos initially treated with flagyl but not better then on vancomycin and completed course he still has diarrhea has to take imodium to control it otherwise it can be bad his brother did have c diff as well Due to his ongoing sx I did re order c diff testing EGd/colon- 12/2019--barretts and tubular adenomas repeat C diff 08/2020--negative EGD/colo 03/02 Endoscopy Findings: barretts esophageal stricture hiatal hernia Colonoscopy Findings: diverticulosis colon polyps x 5 internal hemorrhoids BX: barretts, tissue cypher low risk tubular adenomata repeat 3 yrs INTERIM: he had been noting looser stools normally he would pass a normal stool then after some time the other bowel movement would be loose this happens once every few weeks he is unsure if any connection no blood in stools he loves cheese depends on income, milk once in a while, yoghurt once in a while no abdominal pain now, no nausea or vomiting appetite is good I did order stool tests and they were negative incl fecal lactoferrin EXAM: GENERAL: The patient is well developed and nontoxic. VITAL SIGNS:see workflow HEENT: Nonicteric sclerae, PERRLA, EOMI. Oropharynx clear. Moist mucous membranes. Conjunctivae appear well perfused. No thyroid mass. CHEST: Chest wall is nontender. HEART: Regular rate and rhythm without murmurs. LUNGS: Clear to auscultation bilaterally. ABDOMEN: Soft, positive bowel sounds, nontender, no organomegaly.no flank tenderness SKIN: No rash, no excessive bruising, petechiae, or purpura. NEUROLOGIC: Cranial nerves II-XII intact without motor/sensory deficit. Psych: normal affect A/P: 1/ Hx of colon polyps 2/ barretts esophagus with inflammation, chronic--low risk on tissue cypher 3/ abn bowel habit sounds like overflow PLAN 1/ repeat EGD with tissue cypher and wats in 3-4 yrs 2/ repeat colonoscopy----3-4 yrs 3/ cont ppi with MV and vit D supplement 4/ KUB, check CBC if nml hgb then can cut down iron rx to three times a week might help --high fiber diet PFSH Medical History Glaucoma Obesity (BMI 30-39.9) Internal derangement of right knee Environmental allergies Multiple lacunar infarcts Transient alteration of awareness Routine medical exam History of TIA (transient ischemic attack) On beta miguel at home History of GI bleed Chronic right heart failure Nocturnal hypoxemia VY (obstructive sleep apnea) Chronic heart failure with preserved ejection fraction (HFpEF) Essential hypertension C. difficile diarrhea Shoulder injury Lumbar spondylosis Chronic diarrhea History of alcoholism Idiopathic peripheral neuropathy Morbid obesity Pre-diabetes Diarrhea Arthritis Back pain History of Tfjqn-Vmbsgvdqw-Ozqum (WPW) syndrome Gout Hiatal hernia History of esophageal varices GERD (gastroesophageal reflux disease) Ascending aorta dilation HTN (hypertension) Surgical History Hx of tooth extraction S/P PICC central line placement Hx of total knee replacement H/O cardiac radiofrequency ablation History of esophagogastroduodenoscopy (EGD) History of colonoscopy Family History Father Diabetes mellitus Social History Household Members: Significant Other and Family Household Members Other:: BROTHER Housing: House Housing Other:: lives with s/o and brother Are you a primary manager progressive care to a significant other at home: No Do you presently have visiting nurse or other home services: No Alcohol intake: former Year quit: 1998 Comment: aware of trip hazards Patient Tobacco Use Status: Never used Tobacco e-Cigarette/Vaping Use: Never Used Second Hand Smoke Exposure: Yes Advance Directives Date on File: 05/03/20 service: No Current occupational status: retired 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 Current occupational exposures/hazards: Yes Cognitive needs: No Hearing needs: No Vision needs: Yes Physical Exam Vital Signs: BMI result Body Mass Index 37.3 Assessment & Plan Assessment & Plan (1) Abnormal bowel habits: Code(s): R19.8 - Other specified symptoms and signs involving the digestive system and abdomen Category: Medical Plan: as above (2) Briscoe esophagus: Code(s): K22.70 - 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
[2024-11-19 10:27] VITALS: BMI 37.3
--- OUTSIDE RECORDS SUMMARY | 2024-11-19 11:54 | XMS_ITS | Patient Health Record ---
Author Organization [facility] Address [address] [facility] [place] [address] Care Team Providers Care Coater Carbon Paper Name Role Phone Partha POLANCO, Conchita Primary Care Provider UnavailSusan Norris Unavailable [phone] Partha Arango Unavailable Unavailable Allergies Allergen (clinical [...] Status Risk Notes Problem Stasis dermatitis (disorder) (05797114) Venous stasis dermatitis (I87.2) Active confirmed Vital Signs Blood pressure diastolic 65 mm Hg 08/23/2024 Height 5 ft 7.5inch in 08/23/2024 Blood pressure systolic 130 mm Hg 08/23/2024 Weight 245 lbs 08/23/2024 BMI 37.8 kg/m2 08/23/2024 Encounters Encounter Location Date Provider Diagnosis [facility] [address] 08/23/2024 Susan Gomes Pain in right toe(s) M79.674 ; Onychomycosis B35.1 ; Pain in left toe(s) M79.675 and Venous stasis dermatitis I87.[address] [address] 05/27/2024 Susan Gomes Assessments Encounter Date Diagnosis (ICD Code) Assessment Notes Treatment Notes Treatment Clinical Notes Section Notes 08/23/2024 Pain in right toe(s) (ICD-10 - M79.674) 08/23/2024 Onychomycosis (ICD-10 - B35.1) 08/23/2024 Pain in left toe(s) (ICD-10 - M79.675) 08/23/2024 Venous stasis dermatitis (ICD-10 - I87.2) Plan Of Treatment Next Appt Details Provider Name:Susan Jaramillo karson, 11/23/2024 03:00:00 PM, [address] [address], [place], [address], Insurance Providers Payer Name Payer Address Payer Phone Subscriber Number Group Number Insured Name Patient Relationship to Insured Coverage Start Date Coverage End Date A[employer] [address] [place] [address] [id number] PCP Alek Alba Self - patient is the insured [address] [place] [address] Others [address] [place] [address] [phone] [id number] Alek Alba Self - patient is the insured 3 Medical (General) History Medical History History ICD Code Arthritis Back,Hip,and Knee pain Broken bones CAD (Cholesterol) Cataracts covid-19 Diverticulosis Glaucoma Gout Heart disease Hiatal hernia High Blood Pressure Numbness Reflux ( GERD) Stroke Warts Transfusions
== END 2024-11-19 10:50 | disposition home or self-care (01) ==
LOC: HO.HGI 10:24
PROVIDERS: PCP Internal Medicine; Visit Provider Internal Medicine Gastroenterology
DX: R19.8 Other specified symptoms and signs involving the digestive system and abdomen (principal); K22.70 Barrett's esophagus without dysplasia
CPT/HCPCS: 99214

== ENCOUNTER → 2024-11-19 11:14 | Outpatient (BNV) | payer MEDICARE, BC, SELFPAY | PROVIDERS: PCP Internal Medicine; Visit Provider Radiology Diagnostic Radiology | DX: K80.20 Calculus of gallbladder without cholecystitis without obstruction (principal) | CPT/HCPCS: 74018 ==

== ENCOUNTER 2024-12-03 09:42 | Outpatient (AMB) | payer MEDICARE, BC, SELFPAY ==
--- OUTSIDE RECORDS SUMMARY | 2024-08-17 09:00 | XMS_ITS ---
Author Organization [facility] Address [address] [place] [address] Care Team Providers Care Tissue Technologist Name Role Phone Partha POLANCO, Conchita Primary Care Provider UnavailSusan Norris Unavailable [phone] Partha Arango Unavailable Unavailable Allergies Allergen (clinical [...] 08/17/2024 Encounters Encounter Location Date Provider Diagnosis [facility] [place] [address] [place] [address] [address] [place] [address] 08/17/2024 Susanjaden Gomes Plan Of Treatment Next Appt Details Provider Name:Susan ty, 03/29/2025 03:00:00 PM, [address] [facility], [place] [address] [address], [place], [address], Progress Notes * Sage KLINEOB:1955 (69 yo M)Acc No.[id number]:08/17/2024 Progress Notes Patient: Alek IRENE Provider: Paulo Gomes DPM :1955 A ge:69 Y S ex:Male Date:08/17/2024 Address:[address] [place], [place] [address] Pcp:Conchita Chavis MD Subjective: * Chief Complaints: [...] enies. C ardiovascular: Pacemaker d enies. M LIFE ENRICHMENT MANAGER d enies. W PW a dmits. C [...] 08/17/2024 Generated for Cadence morgan/Lory/Lianet on: 0 12/03/2024 10:44 AM EDT
[2024-12-03 09:45] VITALS: BP 124/68; PULSE 74; TEMP 36.8; O2SAT 96; BMI 38.3
--- NOTE | 2024-12-03 09:45 | MHC.PC.OV ---
Vital Signs 12/03/24 09:45 Height 5 ft 7 in Weight 244 lb 4 oz BMI 38.3 BP 124/68 Blood Pressure Location Lt brachial Position Sitting Pulse 74 Pulse Source Pulse Oximeter Temp 98.2 F Temp Source Oral Pulse Oximetry (%) 96 Intake Visit Reasons: 6m follow up Allergies lisinopril (LISINOPRIL) Allergy (Severe, Verified 12/03/24 09:45) TONGUE SWELLING, CONFUSION environmental allergies Allergy (Unknown, Verified 12/03/24 09:45) Unknown Medication List - Last Reconciled 12/03/24 by Conchita Chavis MD allopurinol 300 mg PO DAILY aspirin 81 mg PO DAILY atorvastatin 40 mg PO BEDTIME bimatoprost 0.03% 1 drp ophthalmic (eye) QPM cholecalciferol (vitamin D3) 25 mcg PO DAILY dorzolamide-timolol 22.3-6.8 mg/mL 1 drp ophthalmic (eye) BEDTIME ferrous sulfate 325 mg PO DAILY furosemide 20 mg PO DAILY gabapentin 300 mg PO Q8H 90 days hydrocortisone 2.5% appl topical BID metoprolol succinate ER 100 mg PO DAILY multivitamin 1 tab PO DAILY nifedipine ER 60 mg PO DAILY pantoprazole 40 mg PO DAILY Tobacco use date assessed: 05/14/24 Fall risk assessment: No Falls in past year Last assessed Fall Risk: 12/03/24 Dental Screening Dental Screen Date: 05/14/24 HPI 6m follow up HPI Details History of Present Illness The patient is a 69-year-old male presenting with congestion in the chest and sinuses and a recent onset of cough. Congestion: - Symptoms of congestion began the day before the visit, in the morning. - The patient feels congested in both the chest and sinuses. - There is occasional coughing without production of significant sputum. - No fever was identified, confirmed through temperature checks. - Symptoms might have been exacerbated by recent exposure to allergens or cold. Medications: - Tylenol, taken as needed for mild aches. - High-dose influenza vaccine, received over a week ago. - COVID-19 vaccine, received concurrently with influenza vaccine, nearly two weeks ago. Problem List - Recent onset congestion and cough - Recent influenza and COVID-19 vaccination Patient Instructions - Monitor symptoms for any changes and seek care if symptoms worsen, such as developing yellow or green sputum. - Continue taking Tylenol as needed for mild aches. - Utilize Delsym (cough syrup) as needed. - Use saline nasal spray to alleviate sinus congestion. - Stay hydrated and get plenty of rest. - Follow-up visit in approximately 10 days. Review of Systems - Respiratory: Reports chest and sinus congestion, coughing; denies productive cough. - General: Denies fever, nausea, vomiting, significant body aches. 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 difficile diarrhea Shoulder injury Lumbar spondylosis Chronic diarrhea History of alcoholism Idiopathic peripheral neuropathy Morbid obesity Pre-diabetes Diarrhea Arthritis Back pain History of Ssohq-Xkdxplzzb-Nfaku (WPW) syndrome Gout Hiatal hernia History of esophageal varices GERD (gastroesophageal reflux disease) Ascending aorta dilation HTN (hypertension) Surgical History Hx of tooth extraction S/P PICC central line placement Hx of total knee replacement H/O cardiac radiofrequency ablation History of esophagogastroduodenoscopy (EGD) History of colonoscopy Family History Father Diabetes mellitus Social History Household Members: Significant Other and Family Household Members Other:: BROTHER Housing: House Housing Other:: lives with s/o and brother Are you a primary reproductive healthcare assistant to a significant other at home: No Do you presently have visiting nurse or other home services: No Alcohol intake: former Year quit: 1998 Comment: aware of trip hazards Patient Tobacco Use Status: Never used Tobacco e-Cigarette/Vaping Use: Never Used Second Hand Smoke Exposure: Yes Advance Directives Date on File: 05/03/20 service: No Current occupational status: retired 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 1. Little interest or pleasure in doing things: not at all 2. Feeling down, depressed, or hopeless: not at all 3. Trouble falling or staying asleep, or sleeping too much: not at all 4. Feeling tired or having little energy: not at all 5. Poor appetite or overeating: not at all 6. Feeling bad about yourself - or that you are a failure or have let yourself or your family down: not at all 7. Trouble concentrating on things, such as reading the newspaper or watching television: not at all 8. Moving or speaking so slowly that other people could have noticed. Or the opposite - being so fidgety or restless that you have been moving around a lot more than usual: not at all 9. Thoughts that you would be better off or of hurting yourself in some way: not at all Total score: 0 Depression Screening Interpretation: Negative Depression Screening Done: Yes 30033 - PHQ-9 Billing: Yes Source: Developed by Drs. Cornell Toth, Odalys Ponce, Matt Hickman and colleagues, with an educational otoniel from [employer]. Thrive Questionnaire Date Thrive assessed: 12/03/24 I am a: Patient What is your living situation today?: I have a steady place to live Within the past 12 months, did the food you bought not last and you didn't have the money to get more?: Sometimes True Within the past 12 months, did you worry whether your food would run out before you got money to buy more?: Sometimes True Do you have trouble paying for medicines?: No Do you have trouble getting transportation to medical appointments?: No Do you have trouble paying your heating and electricity bill?: Yes Do you have trouble taking care of your child, family member or friend?: No Do you have trouble with day-to-day activities such as bathing, preparing meals, shopping, managing finances, etc.?: No Are you currently unemployed and looking for a job?: No Are you interested in more education?: Yes Currently or been in a relationship where the following occur: No concerns reported THRIVE Score: 3 AUDIT C Alcohol Use Questionnaire (AUDIT-C) 1. How often do you have a drink containing alcohol?: Never 3. How often do you have six or more drinks on one occasion?: Never Total Score: 0 Score Reviewed/Action Taken: Yes JEANNETTE-7 AMB Questionnaire JEANNETTE-7 Date JEANNETTE - 7 assessed: 05/14/24 Feeling nervous, anxious, or on edge: 0 = Not at all Not being able to stop or control worryin = Not at all Worrying too much about different things: 0 = Not at all Trouble relaxin = Not at all Being so restless that it is hard to sit still: 0 = Not at all Becoming easily annoyed or irritable: 0 = Not at all Feeling afraid as if something awful might happen: 0 = Not at all Total JEANNETTE-7 score (0-4 normal; 5-9 mild; 10-14 moderate; 15-21 severe): 0 Source: Developed by Drs. Cornell Toth, Odalys Ponce, Matt Hickman and colleagues, with an educational otoniel from [employer]. JEANNETTE-7 Assessment Billing JEANNETTE-7 Assessment Tool: JEANNETTE-7 Assessment 77063 Physical exam (Primary Care) Vital Signs: Last Vital Signs Temp 98.2 F 12/03/24 09:45 Pulse 74 12/03/24 09:45 BP 124/68 12/03/24 09:45 Pulse Ox 96 12/03/24 09:45 BMI result Body Mass Index 38.3 Tobacco/Smoking Status: Tobacco use Status Tobacco use date assessed 05/14/24 12/03/24 09:46 Patient Tobacco Use Status Never used Tobacco 12/03/24 09:46 e-Cigarette/Vaping Use Never Used 12/03/24 09:46 PHQ-9: PHQ-9 Score PHQ-9: Total score 0 12/03/24 09:46 Depression Screening Interpretation: Negative Thrive Assessment: Date of Thrive Assessment Date Thrive assessed 12/03/24 12/03/24 09:46 Currently or been in a relationship where the following occur: No concerns reported Coding Level of Care Code Est Pt Level 3 (46205) Diagnoses Chest congestion R09.89 Sinus congestion R09.81 Acute cough R05.1 Cough type: acute Additional Codes PHQ-9 - 21706 - PHQ-9 Billing: Yes ([id number]) JEANNETTE-7 Assessment Billing - JEANNETTE-7 Assessment Tool: JEANNETTE-7 Assessment 01135 ([id number]) Assessment & Plan Assessment & Plan (1) Chest congestion: Code(s): R09.89 - Other specified symptoms and signs involving the circulatory and respiratory systems Category: Medical (2) Sinus congestion: Code(s): R09.81 - Nasal congestion Category: Medical (3) Cough: Code(s): R05.9 - Cough, unspecified Category: Medical Qualifiers: Cough type: acute Qualified Code(s): R05.1 - Acute cough Plan History of Present Illness The patient is a 69-year-old male presenting with congestion in the chest and sinuses and a recent onset of cough. Congestion: - Symptoms of congestion began the day before the visit, in the morning. - The patient feels congested in both the chest and sinuses. - There is occasional coughing without production of significant sputum. - No fever was identified, confirmed through temperature checks. - Symptoms might have been exacerbated by recent exposure to allergens or cold. Medications: - Tylenol, taken as needed for mild aches. - High-dose influenza vaccine, received over a week ago. - COVID-19 vaccine, received concurrently with influenza vaccine, nearly two weeks ago. Problem List - Recent onset congestion and cough - Recent influenza and COVID-19 vaccination Patient Instructions - Monitor symptoms for any changes and seek care if symptoms worsen, such as developing yellow or green sputum. - Continue taking Tylenol as needed for mild aches. - Utilize Delsym (cough syrup) as needed. - Use saline nasal spray to alleviate sinus congestion. - Stay hydrated and get plenty of rest. - Follow-up visit in approximately 10 days.
--- OUTSIDE RECORDS SUMMARY | 2024-12-03 10:44 | XMS_ITS | Patient Health Record ---
[facility] Organization [facility] Address [address] [address] Care Team Providers Care Pulmonary Specialist Name Role Phone Partha POLANCO, Conchita Primary Care Provider UnavailSusan Norris Unavailable [phone] Partha Arango Unavailable Unavailable Allergies Allergen (clinical drug ingredient) Drug/Non Drug Allergy documented on EMR Reaction Allergy Type Onset Date Status lisinopril Lisinopril throat closes up Drug Allergy Active Reason For Referral No Information Medications Medication SIG (Take, Route, Frequency, Duration) Notes Start Date End Date Status NIFEdipine ER 60 MG 1 tablet on an empty stomach Orally Once a day Active Furosemide 20 MG 1 tablet Orally Once a day Active Hydrocortisone 2.5 % 1 application Exter gemma to affected areas of itching irritated skin on foot/feet Twice a day; Duration: 30 days Active Allopurinol 300 MG 1 tablet Orally Once a day Active Ferrous Sulfate 325 (65 Fe) MG 1 tablet Orally Three times a Week Active Metoprolol Succinate 100 MG 1 capsule Or ally Once a day Active Pantoprazole Sodium 40 MG 1 tablet 1/2 t o 1 hour before morning meal Orally Once a day Active Social History [...] Status Risk Notes Problem Stasis dermatitis (disorder) (15365479) Venous stasis dermatitis (I87.2) Active confirmed Vital Signs Blood pressure diastolic 65 mm Hg 11/23/2024 Height 5ft 7.5in in 11/23/2024 Blood pressure systolic 130 mm Hg 11/23/2024 Weight 240 lbs 11/23/2024 BMI 37.03 kg/m2 11/23/2024 Procedures Procedure Date Ordered Date Performed Result Body Sit e 97795-MMENYWU NAIL, 6 OR MORE 11/23/2024 N/A Encounters Encounter Location Date Provider [facility] [address] 08/23/2024 Susan Gomes Pain in right toe(s) M79.674 ; Onychomycosis B35.1 ; Pain in left toe(s) M79.675 and Venous stasis dermatitis I87.2 [facility] [address] 11/23/2024 Susan Gomes Pain in right toe(s) M79.674 ; Onychomycosis B35.1 ; Pain in left toe(s) M79.675 and Venous stasis dermatitis I87.[address] [address] 05/27/2024 Susan Gomes Assessments Encounter Date Diagnosis (ICD Code) Assessment Notes Treatment Notes Treatment Clinical Notes Section Notes 08/23/2024 Pain in right toe(s) (ICD-10 - M79.674) 08/23/2024 Onychomycosis (ICD-10 - B35.1) 11/23/2024 Pain in right toe(s) (ICD-10 - M79.674) 11/23/2024 Onychomycosis (ICD-10 - B35.1) 08/23/2024 Pain in left toe(s) (ICD-10 - M79.675) 11/23/2024 Pain in left toe(s) (ICD-10 - M79.675) 08/23/2024 Venous stasis dermatitis (ICD-10 - I87.2) 11/23/2024 Venous stasis dermatitis (ICD-10 - I87.2) Plan Of Treatment Pending Test Test Name Order Date [id number] NAIL, 6 OR MORE 11/23/2024 Next Appt Details Provider Name:Susan ty, 03/29/2025 03:00:00 PM, [address], [address], [place], [address], Insurance Providers Payer Name Payer Address Payer Phone Subscriber Number Group Number Insured Name Patient Relationship to Insured Coverage Start Date Coverage End Date [employer] [address] [place] [address] [id number] PCP Alek Alba Self - patient is the insured 4 [facility] Others [address] [place] [address] [phone] [id number] [phone] Alek Alba Self - patient is the insured 3 Medical (General) History Medical History History ICD Code Arthritis Back,Hip,and Knee pain Broken bones CAD (Cholesterol) Cataracts covid-19 Diverticulosis Glaucoma Gout Heart disease Hiatal hernia High Blood Pressure Numbness Reflux ( GERD) Stroke Warts Transfusions
== END 2024-12-03 10:03 | disposition home or self-care (01) ==
PROVIDERS: PCP Internal Medicine; Visit Provider Internal Medicine
DX: R09.89 Other specified symptoms and signs involving the circulatory and respiratory systems (principal); R09.81 Nasal congestion; R05.1 Acute cough

== ENCOUNTER → 2024-12-03 09:42 | Outpatient (BNVA) | payer MEDICARE, BC, SELFPAY | PROVIDERS: PCP Internal Medicine; Visit Provider Internal Medicine | DX: R05.1 Acute cough (principal); R09.89 Other specified symptoms and signs involving the circulatory and respiratory systems; R09.81 Nasal congestion | CPT/HCPCS: 96127; 99212 ==

== ENCOUNTER 2024-12-13 14:07 | Outpatient (AMB) | payer MEDICARE, BC, SELFPAY ==
--- OUTSIDE RECORDS SUMMARY | 2024-08-17 09:00 | XMS_ITS ---
Author Organization [facility] Address [address] [place] [address] Care Team Providers Care Regulatory Law Specialist Name Role Phone Partha POLANCO, Conchita Primary Care Provider UnavailSusan Norris Unavailable [phone] Partha Arango Unavailable Unavailable Allergies Allergen (clinical drug ingredient) Drug/Non Drug Allergy documented on EMR Reaction Allergy Type Onset Date Status lisinopril Lisinopril throat closes up Drug Allergy Active REASON FOR VISIT Dr Rodriguez Medications Medication SIG (Take, Route, Frequency, Duration) Notes Start Date End Date Status Allopurinol 300 MG 1 tablet Orally Once a day Active Ferrous Sulfate 325 (65 Fe) MG 1 tablet Orally Three times a Week Active Furosemide 20 MG 1 tablet Orally Once a day Active Metoprolol Succinate 100 MG 1 capsule Or ally Once a day Active Pantoprazole Sodium 40 MG 1 tablet 1/2 t o 1 hour before morning meal Orally Once a day Active NIFEdipine ER 60 MG 1 tablet on an empty stomach Orally Once a day Active Social History Tobacco Use: Social History Observation Description Date Details (start date - stop date) Never Smoker NA - NA Tobacco use other than smoking: Question Answer Notes Are you an other tobacco user? No Tobacco Control (Standard) Question Answer Notes Tobacco use: Nonsmoker Additional Findings: Tobacco non-user Current no nsmoker AUDIT-C (Standard) Question Answer Notes Did you have a drink containing alcohol in the p ast year? No Points 0 Interpretation Negative Vital Signs Height 5ft 7in in 08/17/2024 Weight 245 lbs 08/17/2024 BMI 38.37 kg/m2 08/17/2024 Encounters Encounter Location Date Provider Diagnosis [facility] [address] [place] [address] [address] [place] [address] 08/17/2024 Susanjaden Gomes Plan Of Treatment Next Appt Details Provider Name:Susan ty, 03/29/2025 03:00:00 PM, [address] [facility], [address] [address], [place], [address], Progress Notes * Sage KLINEOB:1955 (69 yo M)Acc No.[id number]:08/17/2024 Progress Notes Patient: Alek IRENE Provider: Paulo Gomes DPM :1955 A ge:69 Y S ex:Male Date:08/17/2024 Address:[address] [place], [place] [address] Pcp:Conchita Chavis MD Subjective: * Chief Complaints: * [address] Rodriguez. * ROS: G eneral/Constitutional: Nausea d enies. V omiting d enies. H bay Thirst d enies. L oss appetite d enies. C hills d enies. F atigue a dmits.?Fever d enies. N ight Sweats d enies. U nexplained weight loss d enies. U nexplained weight gain d enies. H EENTM: Dentures a dmits. D izziness d enies. G lasses/contacts a dmits. R etinopathy d enies. B lurred/double vision d enies. T MJ?denies. D ischarge/drainage d enies. I mplants d enies. S ore throat d enies. D ental implants d enies. H wes of hearing d enies. D ifficulty chewing/swallowing/speaking d enies. N ose bleeds d enies. S ore mouth d enies. ? R espiratory: On Oxygen d enies. P neumonia/pleurisy d enies.?Bronchitis d enies. E mphysema d enies. C oughing d enies. C ough blood?denies. S hortness of breath d enies. W heezing d enies. C ardiovascular: Pacemaker d enies. M PIPELINE INTEGRITY ENGINEER d enies. W PW a dmits. C HF d enies. H eart attack d enies. S eptal defect d enies. R apid beat d enies. C hest pain d enies. A trial Fib. d enies. M urmur/Palpitations d enies. G astrointestinal: Hemorrhoids d enies. S tomach/Abdominal pain d enies. D ark blood stool d enies. I rritable bowel d enies. C onstipation d enies. D iarrhea a dmits. H ematology: Swelling d enies. C lots d enies. V aricose Veins d enies. B ruising d enies. B leeding problem d enies. G enitourinary: Blood urine d enies. F requent/Painfu/urination/bladder control a dmits. K idney stones d enies. I nfection (UTI) d enies. N ephropathy a dmits. s ex trans dis (STD) d enies. P rostate d enies. M usculoskeletal: Hammertoes d enies. B unions a dmits. B ack Pain d enies. M uscle Cramps/ Resting d enies. M uscle cramps / walking d enies.?Generalized aches and pains d enies. W eakness d enies. I nteg.: Earl d enies. S cars d enies. C orns/calluses?denies. I ngrown nails d enies. P ainful nails d enies. O pen Sores d enies. R ashes d enies. N eurologic: Difficulty sleeping d enies. B rain disorder d enies. N umbness d enies. B alance trouble d enies. C onfusion d enies. F ainting/blackouts d enies. T ingling d enies. T remors d enies. * Medical History: A rthritis, Back,Hip,and Knee pain, Broken bones, CAD (Cholesterol), Cataracts, Covid-19, Diverticulosis, Glaucoma, Gout, Heart disease, Hiatal hernia, High Blood Pressure, Numbness, Reflux ( GERD), Stroke, Warts, Transfusions. * Family History: M other: , diagnosed with Diabetic - NIDDM, Unspecified essential hypertension, Family history of arthritis. F ather: , diagnosed with Unspecified essential hypertension, Family history of arthritis, Unspecified cerebral artery occlusion with cerebral infarction. * Social History: T obacco Use: T obacco use other than smoking A re you an other tobacco user? N o Tobacco Control (Standard) T obacco use: N onsmoker A dditional Findings: Tobacco non-user C urrent nonsmoker D rugs/Alcohol: D rugs H ave you used drugs other than those for medical reasons in the past 12 months? N o M iscellaneous: C affeine: yes. Marital status: Single. Occupation: Retired. D rug/Alcohol: A WHITNEY-C (Standard) D id you have a drink containing alcohol in the past year? N o P oints 0 I nterpretation N egative * Medications: T aking NIFEdipine ER 60 MG Tablet Extended Release 24 Hour 1 tablet on an empty stomach Orally Once a day , Taking Furosemide 20 MG Tablet 1 tablet Orally Once a day , Taking Allopurinol 300 MG Tablet 1 tablet Orally Once a day , Taking Ferrous Sulfate 325 (65 Fe) MG Tablet 1 tablet Orally Three times a Week , Taking Metoprolol Succinate 100 MG Capsule ER 24 Hour Sprinkle 1 capsule Orally Once a day , Taking Pantoprazole Sodium 40 MG Tablet Delayed Release 1 tablet 1/2 to 1 hour before morning meal Orally Once a day * Allergies: L isinopril: throat closes up. Objective: * Vitals: H t: 5ft 7in, Wt:245, BMI:38.37, Ht-cm: 170.18 cm, Wt-k.13 kg. Assessment: Plan: * Treatment: * Images: * The named appointment provid er may or may not be the originator of this progress note, and it is not deemed complete until electronically signed by the appointment provider. Sign off status: Pending * Provider: Paulo Gomes DPM Date: 0 08/17/2024 Generated for Cadence morgan/Lory/Lianet on: 1 04:41 PM EDT
[2024-12-13 14:13] VITALS: BP 110/72; PULSE 71; O2SAT 93; BMI 37.8
--- NOTE | 2024-12-13 14:13 | MHC.OFFVIS ---
Vital Signs 12/13/24 14:13 Height 5 ft 7 in Weight 241 lb 6.499 oz BMI 37.8 BP 110/72 Blood Pressure Location Lt brachial Position Sitting Pulse 71 Pulse Source Pulse Oximeter Pulse Oximetry (%) 93 Oxygen Delivery Method Room Air Intake Visit Reasons: vy Intake Note: pt is here for follow up of vy and states he is feeling good. 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 Visiting Teacher Required: No Territory Outside Sales Manager: Territory Outside Sales Manager offered & declined Allergies lisinopril (LISINOPRIL) Allergy (Severe, Verified 12/13/24 14:22) TONGUE SWELLING, CONFUSION environmental allergies Allergy (Unknown, Verified 12/13/24 14:22) Unknown Medication List - Last Reconciled 12/13/24 by Benjamin Amaya MD allopurinol 300 mg PO DAILY aspirin 81 mg PO DAILY atorvastatin 40 mg PO BEDTIME bimatoprost 0.03% 1 drp ophthalmic (eye) QPM cholecalciferol (vitamin D3) 25 mcg PO DAILY dorzolamide-timolol 22.3-6.8 mg/mL 1 drp ophthalmic (eye) BEDTIME ferrous sulfate 325 mg PO DAILY 90 days furosemide 20 mg PO DAILY gabapentin 300 mg PO Q8H 90 days hydrocortisone 2.5% appl topical BID metoprolol succinate ER 100 mg PO DAILY multivitamin 1 tab PO DAILY nifedipine ER 60 mg PO DAILY pantoprazole 40 mg PO DAILY Do you need a note to return to daycare/school/sports/work: No HPI HPI vy: Details: Alek Jeronimo is now 69 years old male. Remains grossly obese with BMI 37.8. Compared to last visit he did lose a few lb. He does use his CPAP machine regularly. About 1 or 2 nights per week because he goes out for a meetings and comes home late . He has some residual mobility impairment from previous strokes ( TIAs) and walks around with cane. He has no associated pulmonary issues. And does not need to use any inhalers. Also has had no respiratory infection. He is currently nonsmoker and has quit drinking alcohol . [facility] Medical History Glaucoma Obesity (BMI 30-39.9) Internal derangement of right knee Environmental allergies Multiple lacunar infarcts Transient alteration of awareness Routine medical exam History of TIA (transient ischemic attack) On beta miguel at home History of GI bleed Chronic right heart failure Nocturnal hypoxemia VY (obstructive sleep apnea) Chronic heart failure with preserved ejection fraction (HFpEF) Essential hypertension C. difficile diarrhea Shoulder injury Lumbar spondylosis Chronic diarrhea History of alcoholism Idiopathic peripheral neuropathy Morbid obesity Pre-diabetes Diarrhea Arthritis Back pain History of Xpmkf-Fnlnvrscv-Wynpx (WPW) syndrome Gout Hiatal hernia History of esophageal varices GERD (gastroesophageal reflux disease) Ascending aorta dilation HTN (hypertension) Surgical History Hx of tooth extraction S/P PICC central line placement Hx of total knee replacement H/O cardiac radiofrequency ablation History of esophagogastroduodenoscopy (EGD) History of colonoscopy Family History Father Diabetes mellitus Social History Household Members: Significant Other and Family Household Members Other:: BROTHER Housing: House Housing Other:: lives with s/o and brother Are you a primary healthcare risk control consultant to a significant other at home: No Do you presently have visiting nurse or other home services: No Alcohol intake: former Year quit: 1998 Comment: aware of trip hazards Patient Tobacco Use Status: Never used Tobacco e-Cigarette/Vaping Use: Never Used Second Hand Smoke Exposure: Yes Advance Directives Date on File: 05/03/20 service: No Current occupational status: retired 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 Current occupational exposures/hazards: Yes Cognitive needs: No Hearing needs: No Vision needs: Yes Review of Systems Const All systems reviewed & are unremarkable except as noted in HPI and below Eyes Reports no additional complaints ENT Reports no additional complaints Card Denies chest pain, Denies irregular heart rhythm and Denies leg edema Resp Reports no additional complaints, Denies cough and Denies wheezing GI Reports constipation and Reports GI cramping (OFF AND ON) Reports no additional complaints Musc Reports back pain and Reports arthralgias (POST KNEE SURGERY, STILL WALKING WITH A WALKER.) Skin/Breast Reports system reviewed and no additional complaints, except as documented Neuro Reports no additional complaints Psych Reports no additional complaints Aller/Immun Denies wheezing Physical Exam Vital Signs: Last Vital Signs Pulse 71 12/13/24 14:13 BP 110/72 12/13/24 14:13 Pulse Ox 93 12/13/24 14:13 Oxygen Delivery Method Room Air 12/13/24 14:13 BMI result Body Mass Index 37.8 Const General: comfortable, no acute distress, alert and awake Orientation/consciousness: patient oriented x3 HEENT Head: Yes normal to inspection General nose exam: No nasal polyps present and No nasal discharge present Face and sinus: Yes sinuses nontender Mouth: oropharynx abnormals (NARROW AND CROWDED, MALLAMPATI CLASS 4) Throat: Yes posterior oropharynx normal Eyes General: appearance normal, both eyes and all related structures Neck Neck: Yes normal visual inspection, Yes no lymphadenopathy, Yes trachea midline and Yes no JVD Thyroid: Thyroid normal Chest Chest palpation & inspection: normal inspection of the chest, normal palpation of entire chest wall and no tenderness Resp Effort & Inspection: normal respiratory effort Auscultation: clear to auscultation bilaterally, no crackles and no wheezes Cardio Palpation: normal PMI Rate: regular rate Rhythm: regular rhythm Heart sounds: no gallops and no murmurs GI Palpation (GI): Soft to palpation, nontender, No hepatosplenomegaly present and no masses Auscultation: normal bowel sounds Back/Spine/Pelvis Thoracic/Lumbar Spine: thoracic and lumbar spine normal to inspection Skin General skin exam: no rashes or lesions noted Neuro General: patient oriented x3 and no focal motor deficits Cranial nerves: Yes CN's II-XII intact bilaterally Extrem Other: S/P RIGHT KNEE REPLACEMENT. SCAR IN ANTERIOR ASPECT WHICH IS WELL HEALED General: Yes normal to inspection, Yes no clubbing, cyanosis or edema and Yes no calf tenderness Psych Appearance: grossly normal and well kempt Speech and movement: Normal speech and movement present Assessment & Plan Assessment & Plan (1) Obesity (BMI 30-39.9): Comment: HE HAS HISTORY OF MORBID OBESITY BUT HAS GRADUALLY LOST SOME WEIGHT. STILL REMAINS GROSSLY OBESE, AND THERE HAS BEEN NO FURTHER PROGRESS. CURRENT BMI 37.8 HE IS NOT ABLE TO DO MUCH WALKING OR ANY EXERCISE, HE JUST TRYING TO WALK AROUND IN THE HOUSE, HE IS ALSO TRYING TO RESTRICT CALORIES INTAKE. Code(s): E66.9 - Obesity, unspecified Category: Medical Plan: DISCUSSED ABOUT THE WEIGHT AND NEED TO LOSE SOME. DISCUSSED ABOUT DIET , RESTRICT CALORIES INTAKE AND ESPECIALLY CUT. DOWN THE PORTIONS OF THE MEALS (2) VY on CPAP: Comment: HAS LONGSTANDING HISTORY OF OBSTRUCTIVE SLEEP APNEA WHICH IS WELL CONTROLLED WITH USING CPAP. HIS MACHINE DOES NOT TRANSMIT THE COMPLIANCE INFORMATION BUT HE STATES THAT HE USES THE CPAP AT LEAST 5-6 NIGHTS PER WEEK AND FOR 6-7 HOURS EVERY NIGHT. Code(s): G47.33 - Obstructive sleep apnea (adult) (pediatric); Z99.89 - Dependence on other enabling machines and devices Category: Medical Plan: COMMENDED FOR CONTINUING TO USE THE CPAP. ENCOURAGED TO USE IT FOR ABOUT 6 HOURS EVERY NIGHT (3) Nocturnal hypoxemia: Comment: PATIENT DID HAVE EVIDENCE OF NOCTURNAL HYPOXEMIA ON HIS SLEEP STUDY THEN HE STARTED USING THE CPAP, REGULARLY AND NOCTURNAL HYPOXEMIA DID RESOLVE. Code(s): G47.34 - Idiopathic sleep related nonobstructive alveolar hypoventilation Category: Medical Plan: USE CPAP EVERY NIGHT AND DO NOT HAVE TO USE THE OXYGEN Coding Level of Care Code Est Pt Level 3 (55573) Diagnoses Obesity (BMI 30-39.9) E66.9 VY on CPAP G47.33; Z99.89 Nocturnal hypoxemia G47.34
--- OUTSIDE RECORDS SUMMARY | 2024-12-13 16:41 | XMS_ITS | Patient Health Record ---
[facility] Organization [facility] Address [address] [facility] [place] [address] Care Team Providers Care Acid Bleacher Name Role Phone Partha POLANCO, Conchita Primary Care Provider UnavailSusan Norris Unavailable [phone] Partha Arango Unavailable Unavailable Allergies Allergen (clinical [...] Status Risk Notes Problem Stasis dermatitis (disorder) (73014823) Venous stasis dermatitis (I87.2) Active confirmed Vital Signs Blood pressure diastolic 65 mm Hg 11/23/2024 Height 5ft 7.5in in 11/23/2024 Blood pressure systolic 130 mm Hg 11/23/2024 Weight 240 lbs 11/23/2024 BMI 37.03 kg/m2 11/23/2024 Procedures Procedure Date Ordered Date Performed Result Body Sit e 42128-QOEVHLN NAIL, 6 OR MORE 11/23/2024 N/A Encounters Encounter [facility] Date [facility] [address] 08/23/2024 Susan Gomes Pain in right toe(s) M79.674 ; Onychomycosis B35.1 ; Pain in left toe(s) M79.675 and Venous stasis dermatitis I87.[address] [facility] [address] 11/23/2024 Susan Gomes Pain in right toe(s) M79.674 ; Onychomycosis B35.1 ; Pain in left toe(s) M79.675 and Venous stasis dermatitis I87.[address] [address] 05/27/2024 Susan Gomes Assessments Encounter Date Diagnosis [...] Treatment Pending Test Test Name Order Date [id number] NAIL, 6 OR MORE 11/23/2024 Next Appt Details Provider Name:Susan ty, 03/29/2025 03:00:00 PM, [address] [facility], [address], [place], [address], Insurance Providers Payer Name Payer Address Payer Phone Subscriber Number Group Number Insured Name Patient Relationship to Insured Coverage Start Date Coverage End Date [employer] [address] [place] [address] [id number] PCP Alek Alba Self - patient is the insured 4 [facility] Others [address] [place] [address] [phone] [id number] Alek Alba Self - patient is the insured 3 Medical (General) History Medical History History ICD Code Arthritis Back,Hip,and Knee pain Broken bones CAD (Cholesterol) Cataracts covid-19 Diverticulosis Glaucoma Gout Heart disease Hiatal hernia High Blood Pressure Numbness Reflux ( GERD) Stroke Warts Transfusions
== END 2024-12-13 14:23 | disposition home or self-care (01) ==
LOC: HO.HPS 14:08
PROVIDERS: PCP Internal Medicine; Visit Provider Internal Medicine
DX: E66.9 Obesity, unspecified (principal); G47.33 Obstructive sleep apnea (adult) (pediatric); Z99.89 Dependence on other enabling machines and devices; G47.34 Idiopathic sleep related nonobstructive alveolar hypoventilation
CPT/HCPCS: 99213

== ENCOUNTER → 2024-12-13 14:07 | Outpatient (BNVA) | payer MEDICARE, BC, SELFPAY | PROVIDERS: PCP Internal Medicine; Visit Provider Internal Medicine | DX: G47.33 Obstructive sleep apnea (adult) (pediatric) (principal); G47.34 Idiopathic sleep related nonobstructive alveolar hypoventilation; E66.9 Obesity, unspecified; Z68.37 Body mass index [BMI] 37.0-37.9, adult; Z86.73 Personal history of transient ischemic attack (TIA), and cerebral infarction without residual deficits; Z99.89 Dependence on other enabling machines and devices | CPT/HCPCS: 99212 ==

== ENCOUNTER 2024-12-14 10:42 | Outpatient (AMB) | payer MEDICARE, BC, SELFPAY ==
--- OUTSIDE RECORDS SUMMARY | 2024-08-17 09:00 | XMS_ITS ---
Author Organization [facility] Address [address] [place] [address] Care Team Providers Care Roll Edge Machine Operator Name Role Phone Partha POLANCO, Conchita Primary Care Provider UnavailSusan Norris Unavailable [phone] Partha Arango Unavailable Unavailable Allergies Allergen (clinical [...] 08/17/2024 Encounters Encounter Location Date Provider Diagnosis [facility] [place] [address] [place] [address] [address] [place] [address] 08/17/2024 Susanjaden Gomes Plan Of Treatment Next Appt Details Provider Name:Susan ty, 03/29/2025 03:00:00 PM, [address] [facility], [place] [address] [address], [place], [address], Progress Notes * Sage KLINEOB:1955 (69 yo M)Acc No.[id number]:08/17/2024 Progress Notes Patient: Alek IRENE Provider: Paulo Gomes DPM :1955 A ge:69 Y S ex:Male Date:08/17/2024 Address:[address] [place], [place] [address] Pcp:Conchita Chavis MD Subjective: * Chief Complaints: [...] enies. C ardiovascular: Pacemaker d enies. M ENGINE REPAIRER PRODUCTION d enies. W PW a dmits. C [...] 08/17/2024 Generated for Cadence morgan/Lory/Lianet on: 1 01:02 PM EDT
[2024-12-14 10:47] VITALS: BP 120/70; PULSE 58; TEMP 36.4; O2SAT 97; BMI 37.6
--- NOTE | 2024-12-14 10:47 | A.OFFPC_ITS ---
Vital Signs 12/14/24 10:47 Height 5 ft 7 in Weight 240 lb 2 oz BMI 37.6 BP 120/70 Blood Pressure Location Lt brachial Position Sitting Pulse 58 Pulse Source Pulse Oximeter Temp 97.6 F Temp Source Oral Pulse Oximetry (%) 97 Oxygen Delivery Method Room Air Intake Visit Reasons: 10 day follow up Exchange Specialist Required: No Allergies lisinopril (LISINOPRIL) Allergy (Severe, Verified 12/14/24 10:48) TONGUE SWELLING, CONFUSION environmental allergies Allergy (Unknown, Verified 12/14/24 10:48) Unknown Medication List - Last Reconciled 12/14/24 by Conchita Chavis MD allopurinol 300 mg PO DAILY aspirin 81 mg PO DAILY atorvastatin 40 mg PO BEDTIME bimatoprost 0.03% 1 drp ophthalmic (eye) QPM cholecalciferol (vitamin D3) 25 mcg PO DAILY dorzolamide-timolol 22.3-6.8 mg/mL 1 drp ophthalmic (eye) BEDTIME ferrous sulfate 325 mg PO DAILY 90 days furosemide 20 mg PO DAILY gabapentin 300 mg PO Q8H 90 days hydrocortisone 2.5% appl topical BID metoprolol succinate ER 100 mg PO DAILY multivitamin 1 tab PO DAILY nifedipine ER 60 mg PO DAILY pantoprazole 40 mg PO DAILY Tobacco use date assessed: 05/14/24 Fall risk assessment: No Falls in past year Last assessed Fall Risk: 12/14/24 Dental Screening Dental Screen Date: 05/14/24 HPI 10 day follow up HPI Details History The patient is a 69-year-old male presenting for routine follow-up and evaluation of recent respiratory illness recovery. Respiratory tract infection: - The patient experienced a respiratory tract infection approximately a week ago. - Reports improvement in symptoms and fe eling a lot better. - Previously experienced nasal congestio n ( a little bit of sniffles ) but reports improvement. - The patient had received both the flu and COVID vaccines prior to illness onset. Medical History: - Ascending aortic aneurysm - Chronic right-sided heart failure - Neuropathy - Acute extremity conditions - Briscoe's esophagus - Irritable bowel syndrome - Chronic anemia - Osteoarthritis in multiple joints - Obstructive sleep apnea - Obesity (BMI of 37.6) - Hypertension - Prediabetes - Gout prevention Medications: - Allopurinol 300 mg for gout prevention - Atorvastatin 40 mg via cardiology for hyperlipidemia - Vitamin D supplement - Eye drops prescribed by ophthalmology - Furosemide for heart failure as prescr ibed by cardiology - [facility] (discontinued by physician) - Gabapentin 300 mg every 8 hours for ne uropathy from PCP office - Metoprolol via Dr. Shaffer for hyp ertension - Nifedipine AR 60 mg for blood pressure control - Pantoprazole 40 mg from gastroenterolo gist Problem List - History of ascending aortic aneurysm - Chronic right-sided heart failure - Neuropathy - Briscoe's esophagus - Irritable bowel syndrome - Chronic anemia - Osteoarthritis - Obstructive sleep apnea - Obesity - Essential hypertension - Prediabetes - Gout Diagnostic results - Labs: Hemoglobin 14.1 - Labs: Electrolytes within normal limit s - Labs: Kidney functions intact - Labs: Ferritin [address] [facility] - Cardiology (Dr. Shaffer) - Gastroenterology (Dr. Fuentes) - Ophthalmology - Primary Care Provider Plan - Continue routine follow-up with cardio logy, next appointment within the month. - Scheduled follow-up with gastroenterol caleb in May. - Scheduled check with pulmonary for obs tructive sleep apnea in June. - Maintain current medications as previo usly prescribed. - Discontinue iron supplements as hemogl obin and ferritin levels are stable. - Refill necessary medications for six m onths to avoid frequent refill requirements. - Advise against additional pneumonia va ccination as it was administered in March. - Encourage follow-up in six months for ongoing health evaluations. - Monitor and manage chronic conditions, ensuring adherence to existing therapeutic regimens. - Reinforce adherence to flu vaccination protocols amidst seasonal transitions. Review of Systems General: No fever no chills neurological: No headaches no dizziness ear nose throat: No sore throat no hearing difficulty no ear pain cardiovascular: No syncope, no chest pain, no palpitations gastrointestinal: No nausea vomiting or diarrhea endocrine: No polyuria polydipsia no heat intolerance genitourinary: No dysuria skin: No new complaints Physical Exam general: No acute distress HEENT: No acute findings neck: Supple respiratory system: Able to talk in full sentences, no audible wheeze, no stridor cardiovascular: S1-S2 RRR, blood pressure excellent at 120/70 gastrointestinal: No pain extremities: chronic mild Swelling of lower extremity due to chronic right-sided heart failure [employer]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 difficile diarrhea Shoulder injury Lumbar spondylosis Chronic diarrhea History of alcoholism Idiopathic peripheral neuropathy Morbid obesity Pre-diabetes Diarrhea Arthritis Back pain History of Hrtml-Aalfcbvaw-Rgruz (WPW) syndrome Gout Hiatal hernia History of esophageal varices GERD (gastroesophageal reflux disease) Ascending aorta dilation HTN (hypertension) Surgical History Hx of tooth extraction S/P PICC central line placement Hx of total knee replacement H/O cardiac radiofrequency ablation History of esophagogastroduodenoscopy (EGD) History of colonoscopy Family History Father Diabetes mellitus Social History Household Members: Significant Other and Family Household Members Other:: BROTHER Housing: House Housing Other:: lives with s/o and brother Are you a primary patient care specialist to a significant other at home: No Do you presently have visiting nurse or other home services: No Alcohol intake: former Year quit: 1998 Comment: aware of trip hazards Patient Tobacco Use Status: Never used Tobacco e-Cigarette/Vaping Use: Never Used Second Hand Smoke Exposure: Yes Advance Directives Date on File: 05/03/20 service: No Current occupational status: retired 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 1. Little interest or pleasure in doing things: not at all 2. Feeling down, depressed, or hopeless: not at all 3. Trouble falling or staying asleep, or sleeping too much: not at all 4. Feeling tired or having little energy: not at all 5. Poor appetite or overeating: not at all 6. Feeling bad about yourself - or that you are a failure or have let yourself or your family down: not at all 7. Trouble concentrating on things, such as reading the newspaper or watching television: not at all 8. Moving or speaking so slowly that other people could have noticed. Or the opposite - being so fidgety or restless that you have been moving around a lot more than usual: not at all 9. Thoughts that you would be better off or of hurting yourself in some way: not at all Total score: 0 Depression Screening Interpretation: Negative Depression Screening Done: Yes 78626 - PHQ-9 Billing: Yes Source: Developed by Drs. Cornell Toth, Odalys Ponce, Matt Hickman and colleagues, with an educational otoniel from [employer]. Thrive Questionnaire Date Thrive assessed: 12/14/24 I am a: Patient What is your living situation today?: I have a steady place to live Within the past 12 months, did the food you bought not last and you didn't have the money to get more?: Sometimes True Within the past 12 months, did you worry whether your food would run out before you got money to buy more?: Sometimes True Do you have trouble paying for medicines?: No Do you have trouble getting transportation to medical appointments?: No Do you have trouble paying your heating and electricity bill?: Yes Do you have trouble taking care of your child, family member or friend?: No Do you have trouble with day-to-day activities such as bathing, preparing meals, shopping, managing finances, etc.?: No Are you currently unemployed and looking for a job?: No Are you interested in more education?: Yes Currently or been in a relationship where the following occur: No concerns reported THRIVE Score: 3 AUDIT C Alcohol Use Questionnaire (AUDIT-C) 1. How often do you have a drink containing alcohol?: Never 3. How often do you have six or more drinks on one occasion?: Never Total Score: 0 JEANNETTE-7 AMB Questionnaire JEANNETTE-7 Date JEANNETTE - 7 assessed: 05/14/24 Feeling nervous, anxious, or on edge: 0 = Not at all Not being able to stop or control worryin = Not at all Worrying too much about different things: 0 = Not at all Trouble relaxin = Not at all Being so restless that it is hard to sit still: 0 = Not at all Becoming easily annoyed or irritable: 0 = Not at all Feeling afraid as if something awful might happen: 0 = Not at all Total JEANNETTE-7 score (0-4 normal; 5-9 mild; 10-14 moderate; 15-21 severe): 0 Source: Developed by Drs. Cornell Toth, Odalys Ponce, Matt Hickman and colleagues, with an educational otoniel from [employer]. JEANNETTE-7 Assessment Billing JEANNETTE-7 Assessment Tool: JEANNETTE-7 Assessment 59157 Physical exam (Primary Care) Vital Signs: Last Vital Signs Temp 97.6 F 12/14/24 10:47 Pulse 58 12/14/24 10:47 BP 120/70 12/14/24 10:47 Pulse Ox 97 12/14/24 10:47 Oxygen Delivery Method Room Air 12/14/24 10:47 BMI result Body Mass Index 37.6 Tobacco/Smoking Status: Tobacco use Status Tobacco use date assessed 05/14/24 12/14/24 10:50 Patient Tobacco Use Status Never used Tobacco 12/14/24 10:50 e-Cigarette/Vaping Use Never Used 12/14/24 10:50 PHQ-9: PHQ-9 Score PHQ-9: Total score 0 12/14/24 10:59 Depression Screening Interpretation: Negative Thrive Assessment: Date of Thrive Assessment Date Thrive assessed 12/14/24 12/14/24 10:50 Currently or been in a relationship where the following occur: No concerns reported Coding Level of Care Code Est Pt Level 4 (62095) Complex EM visit Add On G2211 Diagnoses Idiopathic peripheral neuropathy G60.9 Idiopathic chronic gout of foot without tophus, unspecified laterality M1A.0790 Gout site: foot Gout etiology: idiopathic Chronicity: chronic Laterality: unspecified laterality Presence of tophus: without tophus Aneurysm of ascending aorta without rupture I71.21 Presence of rupture: without rupture Briscoe's esophagus without dysplasia K22.70 Briscoe's esophagus type: without dysplasia Chronic right-sided heart failure I50.812 Essential hypertension I10 Pre-diabetes R73.03 Additional Codes PHQ-9 - 35319 - PHQ-9 Billing: Yes ([id number]) JEANNETTE-7 Assessment Billing - JEANNETTE-7 Assessment Tool: JEANNETTE-7 Assessment 38104 ([id number]) Assessment & Plan Assessment & Plan (1) Idiopathic peripheral neuropathy: Code(s): G60.9 - Hereditary and idiopathic neuropathy, unspecified Category: Medical (2) Gout: Code(s): M10.9 - Gout, unspecified Category: Medical Qualifiers: Gout site: foot Gout etiology: idiopathic Chronicity: chronic Laterality: unspecified laterality Presence of tophus: without tophus Qualified Code(s): M1A.0790 - Idiopathic chronic gout, unspecified ankle and foot, without tophus (tophi) (3) Ascending aortic aneurysm: Code(s): I71.21 - Aneurysm of the ascending aorta, without rupture Category: Medical Qualifiers: Presence of rupture: without rupture Qualified Code(s): I71.21 - Aneurysm of the ascending aorta, without rupture (4) Briscoe esophagus: Code(s): K22.70 - Briscoe's esophagus without dysplasia Category: Medical Qualifiers: Briscoe's esophagus type: without dysplasia Qualified Code(s): K22.70 - Briscoe's esophagus without dysplasia (5) Chronic right-sided heart failure: Code(s): I50.812 - Chronic right heart failure Category: Medical (6) Essential hypertension: Code(s): I10 - Essential (primary) hypertension Category: Medical (7) Pre-diabetes: Code(s): R73.03 - Prediabetes Category: Medical Plan History The patient is a 69-year-old male presenting for routine follow-up and evaluation of recent respiratory illness recovery. Respiratory tract infection: - The patient experienced a respiratory tract infection approximately a week ago. - Reports improvement in symptoms and feeling a lot better. - Previously experienced nasal congestion ( a little bit of sniffles ) but reports improvement. - The patient had received both the flu and COVID vaccines prior to illness onset. Medical History: - Ascending aortic aneurysm - Chronic right-sided heart failure - Neuropathy - Acute extremity conditions - Briscoe's esophagus - Irritable bowel syndrome - Chronic anemia - Osteoarthritis in multiple joints - Obstructive sleep apnea - Obesity (BMI of 37.6) - Hypertension - Prediabetes - Gout prevention Medications: - Allopurinol 300 mg for gout prevention - Atorvastatin 40 mg via cardiology for hyperlipidemia - Vitamin D supplement - Eye drops prescribed by ophthalmology - Furosemide for heart failure as prescribed by cardiology - Iron supplement previously from PCP office (discontinued by physician) - Gabapentin 300 mg every 8 hours for neuropathy from PCP office - Metoprolol via Dr. Shaffer for hypertension - Nifedipine AR 60 mg for blood pressure control - Pantoprazole 40 mg from recorder gravity prospecting Problem List - History of ascending aortic aneurysm - Chronic right-sided heart failure - Neuropathy - Briscoe's esophagus - Irritable bowel syndrome - Chronic anemia - Osteoarthritis - Obstructive sleep apnea - Obesity - Essential hypertension - Prediabetes - Gout Diagnostic results - Labs: Hemoglobin 14.1 - Labs: Electrolytes within normal limits - Labs: Kidney functions intact - Labs: Ferritin 237 [facility] - Cardiology (Dr. Shaffer) - Gastroenterology (Dr. Fuentes) - Ophthalmology - Primary Care Provider Plan - Continue routine follow-up with cardiology, next appointment within the month. - Scheduled follow-up with gastroenterology in May. - Scheduled check with pulmonary for obstructive sleep apnea in June. - Maintain current medications as previously prescribed. - Discontinue iron supplements as hemoglobin and ferritin levels are stable. - Refill necessary medications for six months to avoid frequent refill requirements. - Advise against additional pneumonia vaccination as it was administered in March. - Encourage follow-up in six months for ongoing health evaluations. - Monitor and manage chronic conditions, ensuring adherence to existing therapeutic regimens. - Reinforce adherence to flu vaccination protocols amidst seasonal transitions. Medications: Refilled gabapentin 300 mg PO Q8H 270 caps 1RF 90 days allopurinol 300 mg PO DAILY 90 tabs 1RF Discontinued ferrous sulfate Discontinued Reason: Doctor's Order 325 mg PO DAILY 90 days 90 tabs 0RF
--- OUTSIDE RECORDS SUMMARY | 2024-12-14 13:03 | XMS_ITS | Patient Health Record ---
[facility] Address [address] [facility] [place] [address] Care Team Providers Care Wash Box Operator Name Role Phone Partha POLANCO, Conchita Primary Care Provider UnavailSusan Norris Unavailable [phone] Partha Arango Unavailable Unavailable Allergies Allergen (clinical [...] Status Risk Notes Problem Stasis dermatitis (disorder) (47288407) Venous stasis dermatitis (I87.2) Active confirmed Vital Signs Blood pressure diastolic 65 mm Hg 11/23/2024 Height 5ft 7.5in in 11/23/2024 Blood pressure systolic 130 mm Hg 11/23/2024 Weight 240 lbs 11/23/2024 BMI 37.03 kg/m2 11/23/2024 Procedures Procedure Date Ordered Date Performed Result Body Sit e 34596-LCCLHNL NAIL, 6 OR MORE 11/23/2024 N/A Encounters Encounter [facility] Date [facility] [address] [facility]/23/2024 Susan Gomes Pain in right toe(s) M79.674 ; Onychomycosis B35.1 ; Pain in left toe(s) M79.675 and Venous stasis dermatitis I87.[address] [facility] [address] 11/23/2024 Susan Gomes Pain in right toe(s) M79.674 ; Onychomycosis B35.1 ; Pain in left toe(s) M79.675 and Venous stasis dermatitis I87.[address] [address] 05/27/2024 Susan Gomes Assessments Encounter Date Diagnosis [...] Treatment Pending Test Test Name Order Date [id number] NAIL, 6 OR MORE 11/23/2024 Next Appt Details Provider Name:Susan ty, 03/29/2025 03:00:00 PM, [address] [facility], [address], [place], [address], Insurance Providers Payer Name Payer Address Payer Phone Subscriber Number Group Number Insured Name Patient Relationship to Insured Coverage Start Date Coverage End Date [employer] [address] [place] [address] [id number] PCP Alek Alba Self - patient is the insured 4 [facility] Others [address] [place] [address] [phone] [id number] [id number] Alek Alba Self - patient is the insured 3 Medical (General) History Medical History History ICD Code Arthritis Back,Hip,and Knee pain Broken bones CAD (Cholesterol) Cataracts covid-19 Diverticulosis Glaucoma Gout Heart disease Hiatal hernia High Blood Pressure Numbness Reflux ( GERD) Stroke Warts Transfusions
== END 2024-12-14 10:59 | disposition home or self-care (01) ==
LOC: HO.HMCC 10:43
PROVIDERS: PCP Internal Medicine; Visit Provider Internal Medicine
DX: G60.9 Hereditary and idiopathic neuropathy, unspecified (principal); I11.0 Hypertensive heart disease with heart failure; I50.812 Chronic right heart failure; M1A.0790 Idiopathic chronic gout, unspecified ankle and foot, without tophus (tophi); I71.21 Aneurysm of the ascending aorta, without rupture; K22.70 Barrett's esophagus without dysplasia; R73.03 Prediabetes

== ENCOUNTER → 2024-12-14 10:42 | Outpatient (BNVA) | payer MEDICARE, BC, SELFPAY | PROVIDERS: PCP Internal Medicine; Visit Provider Internal Medicine | DX: G60.9 Hereditary and idiopathic neuropathy, unspecified (principal); M1A.0790 Idiopathic chronic gout, unspecified ankle and foot, without tophus (tophi); I71.21 Aneurysm of the ascending aorta, without rupture; K22.70 Barrett's esophagus without dysplasia; I11.0 Hypertensive heart disease with heart failure; I50.812 Chronic right heart failure; R73.03 Prediabetes; Z79.899 Other long term (current) drug therapy; Z13.31 Encounter for screening for depression | CPT/HCPCS: 96127; 99212 ==

== ENCOUNTER 2024-12-29 12:32 | Outpatient (AMB) | payer MEDICARE, BC, SELFPAY ==
[2024-12-29 12:37] VITALS: BP 108/66; PULSE 65; BMI 38.2
--- NOTE | 2024-12-29 12:37 | A.OFFVIS_ITS ---
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 Required: No Accompanied by: Self / Same As Patient Allergies lisinopril (LISINOPRIL) Allergy (Severe, Verified 12/29/24 12:43) TONGUE SWELLING, CONFUSION environmental allergies Allergy (Unknown, Verified 12/29/24 12:43) Unknown Medication List - Last Reconciled 12/29/24 by Otilio Shaffer MD allopurinol 300 mg PO DAILY aspirin 81 mg PO DAILY atorvastatin 40 mg PO BEDTIME bimatoprost 0.03% 1 drp ophthalmic (eye) QPM cholecalciferol (vitamin D3) 25 mcg PO DAILY dorzolamide-timolol 22.3-6.8 mg/mL 1 drp ophthalmic (eye) BEDTIME furosemide 20 mg PO DAILY gabapentin 300 mg PO Q8H 90 days hydrocortisone 2.5% appl topical BID metoprolol succinate ER 100 mg PO DAILY multivitamin 1 tab PO DAILY nifedipine ER 60 mg PO DAILY pantoprazole 40 mg PO DAILY HPI Comments Details: Alek returns for follow-up regarding congestive heart failure as well as ascending aortic aneurysm. 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 Overall, he is feeling good. No cardiac symptoms. COUNTS INCLUDE 234 BEDS AT THE [facility] Medical History Glaucoma Obesity (BMI 30-39.9) Internal derangement of right knee Environmental allergies Multiple lacunar infarcts Transient alteration of awareness Routine medical exam History of TIA (transient ischemic attack) On beta miguel at home History of GI bleed Chronic right heart failure Nocturnal hypoxemia VY (obstructive sleep apnea) Chronic heart failure with preserved ejection fraction (HFpEF) Essential hypertension C. difficile diarrhea Shoulder injury Lumbar spondylosis Chronic diarrhea History of alcoholism Idiopathic peripheral neuropathy Morbid obesity Pre-diabetes Diarrhea Arthritis Back pain History of Hxtuh-Ffcrqvvwy-Fqphi (WPW) syndrome Gout Hiatal hernia History of esophageal varices GERD (gastroesophageal reflux disease) Ascending aorta dilation HTN (hypertension) Surgical History Hx of tooth extraction S/P PICC central line placement Hx of total knee replacement H/O cardiac radiofrequency ablation History of esophagogastroduodenoscopy (EGD) History of colonoscopy Family History Father Diabetes mellitus Social History Household Members: Significant Other and Family Household Members Other:: BROTHER Housing: House Housing Other:: lives with s/o and brother Are you a primary career transition specialist to a significant other at home: No Do you presently have visiting nurse or other home services: No Alcohol intake: former Year quit: 1998 Comment: aware of trip hazards Patient Tobacco Use Status: Never used Tobacco e-Cigarette/Vaping Use: Never Used Second Hand Smoke Exposure: Yes Advance Directives Date on File: 05/03/20 service: No Current occupational status: retired 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 Current occupational exposures/hazards: Yes Cognitive needs: No Hearing needs: No Vision needs: Yes Review of Systems Const Denies daytime sleepiness, Denies difficulty sleeping, Denies snoring, Denies stops breathing during sleep and Denies weakness Card Denies chest pain, Denies rapid heart rate, Denies irregular heart rhythm, Denies claudication, Reports leg edema, Denies lightheadedness, Denies palpitations, Denies dyspnea, Denies dyspnea on exertion, Denies orthopnea, Den ies paroxysmal nocturnal dyspnea and Denies slow heart rate Resp Denies cough, Denies dyspnea, Denies dyspnea on exertion and Denies snoring GI Reports no additional complaints, Denies hematochezia, Denies change in stool character and Denies dyspepsia Musc Denies abnormal gait, Denies muscle weakness and Denies numbness Neuro Denies abnormal gait, Denies numbness and Denies weakness Endo Denies palpitations Physical Exam Vital Signs: Last Vital Signs Pulse 65 12/29/24 12:37 BP 108/66 12/29/24 12:37 BMI result Body Mass Index 38.2 Const General: comfortable and no acute distress Orientation/consciousness: patient oriented x3 HEENT Other: Unremarkable Head: Yes normal to inspection Neck Neck: Yes normal visual inspection Chest Chest palpation & inspection: normal inspection of the chest Resp Auscultation: clear to auscultation bilaterally Cardio Palpation: normal PMI Heart sounds: S1 normal heart sound present, S2 normal heart sound present, no gallops, no murmurs and no rubs GI Palpation (GI): Soft to palpation Back/Spine/Pelvis Other: unremarkable Skin General skin exam: no rashes or lesions noted Neuro General: patient oriented x3 Extrem General: Yes normal to inspection Psych Mental Status: mental status grossly normal Office Procedures EKG Details: EKG with underlying sinus rhythm at 65/Min; leftward axis; occasional PVCs; [place] [id number], Complete Assessment & Plan Assessment & Plan (1) Chronic right heart failure: Code(s): I50.812 - Chronic right heart failure Category: Medical Plan: Stable. Remains on diuretics. (2) Coronary artery calcification seen on CAT scan: Code(s): I25.10 - Atherosclerotic heart disease of [place] coronary artery without angina pectoris Category: Medical Plan: CT chest shows coronary calcification. Myocardial perfusion imaging unremarkable. Clinically, no angina. Continue statins. LDL is well controlled. (3) Ascending aortic aneurysm: Code(s): I71.21 - Aneurysm of the ascending aorta, without rupture Category: Medical Qualifiers: Presence of rupture: without rupture Qualified Code(s): I71.21 - Aneurysm of the ascending aorta, without rupture Plan: In the most recent CT scan, ascending aortic size 4.6 cm. Overall, stable. In the echocardiogram, described to be 4.4 cm, likely underestimated. We will likely follow this on CTs due to the discrepancy between echo and CTA. Reordered CTA before next visit in 6 months. (4) Essential hypertension: Code(s): I10 - Essential (primary) hypertension Category: Medical Plan: Blood pressure is slightly low. In the past, we had cut back on the beta- miguel dosing. May need further changes if the blood pressure remains lowish. (5) VY (obstructive sleep apnea): Code(s): G47.33 - Obstructive sleep apnea (adult) (pediatric) Category: Medical Plan: Continue CPAP. Plan Discussion Notes I discussed with the patient the importance of monitoring his peripheral edema and maintaining physical activity to aid circulation. We also reviewed his sleep apnea management, confirming continued use of the CPAP machine. A chest CT scan was scheduled for six months as part of his preventative care, and we agreed to follow up around that time. Patient was informed and verbally consented to the use of an ambient scribe for clinic note documentation during this visit. Orders: Orders CT angio chest aorta 6 Months I71.21 - Aneurysm of the ascending aorta, without rupture Basic Metabolic Panel 6 Months I71.21 - Aneurysm of the ascending aorta, without rupture Patient Instructions: - Continue using your CPAP machine as prescribed. - Engage in regular physical activity such as walking to help reduce leg swelling. - Attend the scheduled chest CT scan in six months. Coding Level of Care Code Est Pt Level 4 (88626) Complex EM visit Add On G2211 Diagnoses Chronic right heart failure I50.812 Coronary artery calcification seen on CAT scan I25.10 Aneurysm of ascending aorta without rupture I71.21 Presence of rupture: without rupture Essential hypertension I10 VY (obstructive sleep apnea) G47.33 CPT Codes EKG - CPT: 17271-[id number], Complete ([id number])
== END 2024-12-29 12:56 | disposition home or self-care (01) ==
LOC: HO.HCS 12:33
PROVIDERS: PCP Internal Medicine; Visit Provider Internal Medicine
DX: I50.812 Chronic right heart failure (principal); I25.10 Atherosclerotic heart disease of native coronary artery without angina pectoris; I71.21 Aneurysm of the ascending aorta, without rupture; I10 Essential (primary) hypertension; G47.33 Obstructive sleep apnea (adult) (pediatric)
CPT/HCPCS: 93010; 99214; G2211

== ENCOUNTER → 2024-12-29 12:32 | Outpatient (BNVA) | payer MEDICARE, BC, SELFPAY | PROVIDERS: PCP Internal Medicine; Visit Provider Internal Medicine | DX: I50.812 Chronic right heart failure (principal); I25.10 Atherosclerotic heart disease of native coronary artery without angina pectoris; I71.21 Aneurysm of the ascending aorta, without rupture; I10 Essential (primary) hypertension; G47.33 Obstructive sleep apnea (adult) (pediatric); Z99.89 Dependence on other enabling machines and devices | CPT/HCPCS: 93005; 99212 ==